=== PATIENT | female | born 1935 | race Caucasian/White ===

== ENCOUNTER 2017-08-14 00:26 | Inpatient (IN) | payer MEDICARE, SELFPAY ==
[2017-08-14] VITALS (14 sets, daily range): BP systolic 123–150; BP diastolic 45–93; PULSE 74–90; RESP 16–22; TEMP 36.3–36.8; O2SAT 93–98; BMI 25.9; BMI 24.9
--- NOTE | 2017-08-14 00:51 | RAD_ITS ---
STUDY: X-RAY CHEST REASON FOR EXAM: Female, 82 years old. Cough TECHNIQUE: A single frontal view of the chest was obtained. COMPARISON: August 10, 2017 FINDINGS: The lungs are adequately aerated. There are patchy opacities in the right lung base. There is no demonstrated pleural abnormality. The cardiac silhouette is normal in size. Calcified lymph nodes are again seen in the hilar regions. Normal visualized pulmonary arteries. There is atherosclerotic calcification of the aortic arch. There are diffuse degenerative changes of the visualized thoracic spine. 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 There is no demonstrated abnormality of the visualized upper abdomen. RAD/Chest 1 View (Portable) IMPRESSION: Right basilar opacities may represent developing consolidation. There is no obvious effusion. Electronically Signed: Dilma Fleming MD at 1:54 EST Tel Direct: [phone], Service support ,
--- NOTE | 2017-08-14 00:54 | ED.VISSUMM ---
- ER Visit Summary Date of Service: 08/14/17 Chief Complaint:, Shortness of breath History of Present Illness: The patient is a 82 F presenting with cough, shortness of breath ?1 week. Patient was seen in the ED and put on steroids and Zithromax for a COPD exacerbation. She states she has not improved. She states she has rhinorrhea and congestion. She saw her primary care physician today. She called EMS tonight when she was more short of breath. She denies chest pain. She denies changes with exertion. She is not on home O2. She is no longer a smoker. She feels like she needs a breathing treatment. Physical Examination: Vitals are stable. Patient is afebrile. Alert no acute distress. HEENT exam is unremarkable. Neck is supple. Lungs are diminished bilaterally. Heart is regular rate and rhythm. Abdomen is soft nontender nondistended. Extremities are unremarkable. Skin is warm and dry. No focal neurologic deficit. Remainder of exam is unremarkable. Emergency Department Course and Treatment: She is given albuterol Atrovent aerosol. CBC is normal except for hemogram 10.0. D-dimer is elevated 2.31. EKG is sinus rate of 71, no change from previous. Chest x-ray shows a right sided opacity which may represent developing consolidation. Chemistries show creatinine 1.42 which is near baseline. She is given IV fluids. Troponin is negative. BNP is normal. Due to elevated d-dimer, CTA chest was obtained and shows no evidence of PE. Right sided consolidation unable to exclude underlying neoplasm. Patient is given Levaquin IV. Due to her failed outpatient treatment will discuss with the hospitalist for admission. Disposition: Admission Impression: Pneumonia, COPD exacerbation, failed outpatient treatment This note was generated with [employer] dictation software. It may contain incorrect words, spelling, and punctuation that were not noted in review of the chart prior to signing ED Disposition - Plan for ED Patient: Chief Complaint: Cough Referrals: Jethro Goel DO [Primary Care Provider] -
[2017-08-14] MEDS: Ipratropium/Albuterol Sulfate 3 ML AMPUL.NEB INHALATION (01:05)
[2017-08-14 01:34] LABS: Absolute Lymphocyte Count 1.59 X10^3/ul (0.83-4.51); Absolute Neutrophil Count 6.9 X10^3/uL (2.0-7.7); Basophil# 0.02 X10^3/uL; Basophil% 0.2 % (0-1); Eosinophil# 0.14 X10^3/uL; Eosinophils% 1.4 % (0-5); Hematocrit 31.2 % (37-47); Lymphocyte # 1.59 X10^3/ul (4.0); Lymphocyte % 16.1 % (19-41); Mean Corp Hgb Conc 32.1 g/gl (32-36); Mean Corpuscular Hgb 27.9 pg (27.0-32.0); Mean Corpuscular Volume 87.2 fL (81-99); Mean Platelet Vol. 10.2 fl (6.2-12.0); Monocyte# 1.19 X10^3/uL; Neutrophil # 6.92 X10^3/uL (2.7-7.7); Neutrophil % 69.9 % (47-70); Platelet Count 286 K/mm3 (150-450); RBC Distribution Width CV 17.3 % (11.6-14.6); RBC Distribution Width SD 53.7 fl (35.1-43.9); Red Blood Count 3.58 M/mm3 (4.2-5.4); White Blood Count 9.9 K/mm3 (4.4-11.0)
[2017-08-14 01:36] LABS: POSITIVE COUNT NO; POSITIVE DIFFERENTIAL NO; POSITIVE MORPHOLOGY NO
[2017-08-14 01:39] LABS: D-Dimer Quantitative (DVT/PE) 2.31 FEU/ug/m (0.27-0.49)
--- NOTE | 2017-08-14 01:39 | ED.RN ---
LAB REPORTED DDIMER 2.34, PHYSICIAN NOTIFIED
[2017-08-14 01:42] LABS: Anion Gap 8 (5-15); BUN 19 mg/dL (7-18); BUN/Creat Ratio 13.4 RATIO (10-20); Calcium,Total 8.4 mg/dL (8.5-10.1); Chloride 104 mmol/L (98-107); Creatinine, Serum 1.42 mg/dL (0.55-1.02); EST Glomerular Filtration Rate 38 mL/min (>60); Est Glom Filt Rate - Afr Amer 46 mL/min (>60); Glucose 105 mg/dL (70-110); Potassium 3.9 mmol/L (3.5-5.1); Sodium Level 139 mmol/L (136-145)
--- NOTE | 2017-08-14 01:49 | CT_ITS ---
STUDY: CTA CHEST REASON FOR EXAM: Female, 82 years old. Elevated d-dimer, shortness of breath, cough, on antibiotic. No improvement. History of COPD, emphysema, TIA, CAD, hypertension. RADIATION DOSAGE (If Supplied By Facility): CTDIvol = ( 12.31 ) mGy, DLP = ( 429.82 ) mGycm TECHNIQUE: The examination was performed with the intravenous administration of 75 ml of Isovue 300 contrast material. Post-processing of the angiographic images was performed, with multiplanar reformation and 3D reconstruction. Individualized dose optimization techniques were used for this CT. COMPARISON: Prior comparison studies are not available for review at this time but were requested. If and when they become available, an addendum report will be generated. FINDINGS: Nodular low-attenuation thyroid. Normal enhancement of the main pulmonary artery and right and left pulmonary arteries. Normal enhancement of the bilateral peripheral pulmonary arteries. There is no demonstrated pulmonary embolism. There is atherosclerotic tortuosity of the aortic arch and descending thoracic aorta. There is no demonstrated aortic dissection. There are calcifications of the coronary arteries. There is borderline cardiac cardiomegaly. Normal mediastinum. Normal hilar regions. Normal visualized trachea and bronchi. The lungs are hyper expanded, with flattening of the hemidiaphragms. There is mild diffuse emphysema. A pleural-based 0.9 cm nodule in the left lower lobe image 62 series 2 noncalcified nodule in the left upper lobe 0.7 x 0.6 cm image 96 series 2 calcified nodule in the left upper lobe vague nodular density left upper lobe 0.3 x 0.5 cm image 175 series 2 and a 0.4 cm indistinct nodule left apex image 12 and 13 series 2. Right lower lobe contains pleural-based nodular airspace disease with associated bronchial wall thickening, bronchial opacification. There is compression of the basilar/dependent parenchyma right greater than left. Normal pleura. Normal chest wall structures. There are degenerative changes of spine, bilateral shoulder joints, osteopenia. There is a moderate to large sized hiatal hernia, atherosclerosis of the upper abdominal aorta, subcentimeter hyperattenuation right renal cortex, small bilateral kidneys, low-attenuation with lobular contour involving the posterior right hepatic lobe measuring approximately 4.2 x 3.2 cm. This is not consistent with water density. There is a small left hepatic low-attenuation measuring near water density measuring 0.[address]/CTA Chest W/WO Contrast IMPRESSION: 1. No demonstrated pulmonary embolism, aneurysm, leak or arterial dissection. 2. Pleural-based nodular airspace disease somewhat masslike right lower lobe with adjacent bronchial wall thickening and luminal narrowing. This may be due to inflammatory/infectious process, follow-up examination to resolution recommended to exclude underlying neoplasm. 3. Multiple parenchymal nodules as above, comparison with previous examination for stability assessment recommended. 4. Emphysema. 5. Atherosclerosis. 6. Coronary artery disease. 7. Moderate to large hiatal hernia. 8. Low-attenuation right hepatic lobe not consistent with a cyst. Correlation to previous assessment and workup recommended. 9. Low-attenuation left hepatic lobe probably a cyst. 10. Right renal cortical hyperattenuation is indeterminate. This can be seen with a hemorrhagic cyst. Again correlation with previous examination of stability assessment recommended. 11. Suspected thyroid nodules. This can be further assessed if needed with ultrasound. CT Follow-Up of Small Pulmonary Nodules Nodule size is average of length and width. Nodule size. Low risk patient. Non smoking history. <4mm No follow-up needed (risk of malignancy <1%) 4-6mm Follow up CT at 12 months, if unchanged, no further imaging needed. 6-8mm Initial follow up at 6-12 month, then at 18-24 months if no changes. > 8mm Follow-up CT at 3, 9, and 24 months, dynamic contrast CT, PET and /or biopsy. Nodule size. High risk patients. Smoking history. <4mm Follow-up 12 months: if unchanged, no further follow-up. 4-6mm Initial follow-up at 6-12 months,then at 18-24 months if no change. 6-8mm Initial follow-up at 3-6months, then at 9-12 and 24 months if no change. >8mm Same as for low risk patient. [employer] STATEMENT Electronically Signed: Shobha Pepe MD at 3:29 EST , Service support ,
[2017-08-14 02:06] LABS: BNP,B-Type NATRIURETIC PEPTIDE 60.2 pg/mL (0-100)
[2017-08-14] MEDS: Acetaminophen 500 MG Tablet 1000 MG PO (02:22)
[2017-08-14] MEDS: 0.9% Normal Saline 1,000 ML 999 ML IV (02:23)
--- NOTE | 2017-08-14 05:01 | PCM.HP.STD ---
Problem List (1) HLD (hyperlipidemia) Status: Chronic (2) HTN (hypertension) Status: Chronic (3) Chronic renal failure, stage 3 (moderate) Status: Chronic (4) Pneumonia Status: Acute History of Present Illness Date of Admission: 08/14/17 Chief Complaint: Shortness of breath and cough The patient is an 82 year old F with past medical history of stage III chronic kidney disease, dyslipidemia and essential hypertension who presented to the emergency room due to progressive shortness of breath and cough. She was seen in the emergency room about a week ago and treated with steroids and Zithromax for possible bronchitis/COPD exacerbation,she became more short of breath at home and called the EMS and she was taken to the emergency room for evaluation. Her d-dimer was elevated and a CTA of the chest was obtained and showed a pleural-based nodular airspace disease somewhat masslike , in the right lower lobe with adjacent bronchial wall thickening and luminal narrowing. There are also multiple parenchymal nodules noted. The patient was diagnosed with pneumonia and placed on IV Levaquin and we are placing her in the hospital for further management. Past Medical History Past Medical History (Chronic Problems): Chronic Problems HLD (hyperlipidemia) (Chronic) HTN (hypertension) (Chronic) Urinary, incontinence, stress female (Chronic) Chronic renal failure, stage 3 (moderate) (Chronic) Allergies No Known Allergies Allergy (Verified 08/14/17 00:29) Home Medications: Ambulatory Orders Medication Instructions Recorded Pravastatin [Pravachol] 20 mg PO QHS 07/03/13 Albuterol Inhaler [Ventolin Hfa] 1 - 2 puff INHALATION Q4H PRN PRN 04/26/17 #1 inhaler Albuterol Inhaler [Ventolin Hfa] 1 puff INHALATION Q4H PRN PRN #1 08/04/17 inhaler Surgical History: noncontributory, - - Surgery for stress incontinence including a sling procedure Smoking Status: Current some day smoker - *Family History Maternal History Items: No pertinent history Review of Systems Comment: All Systems were reviewed with pertinent positives mentioned in the HPI above. VTE Information - Inpt Only VTE Present on Admission: Yes VTE Mechan Device Prophylaxis: SCD's VTE Pharm Prophylaxis ordered?: Yes Patient Problems: Active and Suspected Problems Pneumonia (Acute) - Physical Exam General: Alert, Oriented x3 Neck: Supple, No JVD Cardiovascular: Regular rate, Normal S1, Normal S2 Abdomen: Bowel Sounds Present, Soft Vital Signs Temp Pulse Resp BP Pulse Ox 98.2 F 78 22 H 136/80 H 94 08/14/17 04:46 08/14/17 04:46 08/14/17 04:46 08/14/17 04:46 08/14/17 04:46 Oxygen Delivery Method Room Air Weight: 75.3 kg Body Mass Index (BMI) 25.9 Laboratory Tests Past 24 Hrs 08/14/17 08/14/17 08/14/17 01:10 01:10 01:10 WBC 9.9 RBC 3.58 L Hgb 10.0 L Hct 31.2 L MCV 87.2 MCH 27.9 MCHC 32.1 RDW 17.3 H RDW Differential 53.7 H Plt Count 286 MPV 10.2 Immature Gran % (Auto) 0.400 Neut % (Auto) 69.9 Lymph % (Auto) 16.1 L [place] % (Auto) 12.0 H Eos % (Auto) 1.4 Baso % (Auto) 0.2 Absolute Neuts (auto) 6.9 Absolute Lymphs (auto) 1.59 Total Counted Not Reportable D-Dimer Quant (PE/DVT) 2.31 H* Sodium 139 Potassium 3.9 Chloride 104 Carbon Dioxide 27.0 Anion Gap 8 BUN 19 H Creatinine 1.42 H Estim Creat Clear Calc 29.70 Est GFR (MDRD) Af Amer 46 L Est GFR (MDRD) Non-Af 38 L BUN/Creatinine Ratio 13.4 Glucose 105 Calcium 8.4 L Troponin I 0.04 B-Natriuretic Peptide 08/14/17 01:10 WBC RBC Hgb Hct MCV MCH MCHC RDW RDW Differential Plt Count MPV Immature Gran % (Auto) Neut % (Auto) Lymph % (Auto) [place] % (Auto) Eos % (Auto) Baso % (Auto) Absolute Neuts (auto) Absolute Lymphs (auto) Total Counted D-Dimer Quant (PE/DVT) Sodium Potassium Chloride Carbon Dioxide Anion Gap BUN Creatinine Estim Creat Clear Calc Est GFR (MDRD) Af Amer Est GFR (MDRD) Non-Af BUN/Creatinine Ratio Glucose Calcium Troponin I B-Natriuretic Peptide 60.2 Assessment/Plan Active and Suspected Problems Pneumonia (Acute) 1. Community-acquired pneumonia, presumptive, we will continue on IV Levaquin. 2. Mass like pleural-based nodular airspace disease/lung nodules; since she is a reformed smoker, diagnosis of malignancy should be entertained and I will consult pulmonary 3. Acute COPD exacerbation; will continue her bronchodilators, IV steroids and antibiotics. 4. stage III chronic kidney disease; her creatinine is at baseline, will monitor renal parameters closely and avoid potentially nephrotoxic medications. 5. Dyslipidemia; will continue her statin 6. DVT prophylaxis with subcutaneous heparin. Code Visit Inpatient E&M: 44304 Init Hosp L2
[2017-08-14] MEDS: 0.9% Normal Saline 1,000 ML 75 ML IV ×2 (06:05→13:36)
[2017-08-14] MEDS: guaiFENesin 1,200 MG Tablet 1200 MG PO ×2 (06:06→21:48)
[2017-08-14 08:03] LABS: Anion Gap 11 (5-15); BUN 15 mg/dL (7-18); BUN/Creat Ratio 10.8 RATIO (10-20); Calcium,Total 8.2 mg/dL (8.5-10.1); Chloride 106 mmol/L (98-107); Creatinine, Serum 1.39 mg/dL (0.55-1.02); EST Glomerular Filtration Rate 39 mL/min (>60); Est Glom Filt Rate - Afr Amer 47 mL/min (>60); Estimated Creatinine Clearance 30.34 ml/min; Glucose 107 mg/dL (70-110); Potassium 3.9 mmol/L (3.5-5.1); Sodium Level 140 mmol/L (136-145)
[2017-08-14] MEDS: Albuterol 2.5 MG/3 ML VIAL.NEB. INHALATION ×2 (10:58→18:39)
[2017-08-14] MEDS: Pantoprazole Sodium 20 MG Tablet PO (11:21)
--- NOTE | 2017-08-14 13:44 | PCM.CONS.GEN ---
Problem List (1) Bronchiectasis Status: Acute (2) Chronic renal failure, stage 3 (moderate) Status: Chronic (3) HLD (hyperlipidemia) Status: Chronic (4) HTN (hypertension) Status: Chronic (5) Tobacco abuse Status: Chronic (6) GERD (gastroesophageal reflux disease) Status: Chronic (7) Anxiety Status: Chronic Reason for Consult Date of Consultation: 08/14/17 Reason for Consultation: ?mass-like airspace disease History of Present Illness: The patient is a 82 year old F with a past medical history as above who presented to the ER with complaints of progressive shortness of breath and cough after failed outpatient antibiotic therapy. Patient presented to the ER a week ago and was given a Z-dodie for presumed COPD exacerbation. She was not placed on any steroids. Patient has been to the ER 4 times this month and multiple other times the last few years. Today, she called EMS secondary to unable to catch her breath. She denies any increase in sputum production, hemoptysis, nausea, vomiting, or diarrhea. She denies any fever or chills. There is been no significant weight loss. She does complain of constant GERD related symptoms. She is unable to eat anything spicy and notices more severe heartburn with caffeine intake. She denies any history of a hernia. Patient reports she typically has good exercise tolerance, she walks from her apartment up a large hill to shop at [employer] and does not get excessively short of breath. In the ER, she was given a 1 L normal saline bolus, IV Levaquin, DuoNeb aerosol, and Tylenol 1000 mg ?1. Initial vital signs BP 150/86, pulse 80, RR 22, afebrile at 98.2?F, and 98% on room air. Lab work obtained and was remarkable for hemoglobin of 10.0 which is the patient's baseline, chemistry remarkable for creatinine of 1.39 (also baseline), normal troponin and BNP. D-dimer was elevated at 2.31, so CTA of the chest obtained which demonstrated multiple findings as follows: No PE, dissection, or aneurysm. Pleural-based nodular airspace disease with questionable masslike right lower lobe with adjacent bronchial wall thickening and luminal narrowing. There were multiple parenchymal nodules, see report for full description. Also indicated emphysema, atherosclerosis, CAD, a moderate to large hiatal hernia, a low-attenuation left hepatic lobe probable cyst, a right renal cortical hyperattenuation which is indeterminate, and suspected thyroid nodules. Blood cultures and respiratory panel were obtained, and a flu swab was negative. Patient was admitted to the medical surgical floor for further management of presumed pneumonia. The patient lives alone but has 2 daughters nearby, one who work here at the hospital in admissions. She is on minimal medications at home, only taking as needed Ventolin and Pravachol. Her last colonoscopy was approximately 4-5 years ago and was reportedly normal. She has not had a mammogram in a long time, there have been no previous abnormalities. Her mother did have a history of breast cancer. Her father had a history of prostate cancer. Otherwise, both her parents were fairly healthy. She states she was diagnosed with COPD at her primary care physician's office. Patient does have an extensive smoking history, with a [id number] history. She quit smoking 1 week ago. She denies ever seen a guide escort or having pulmonary function tests of any sort. She denies any history of cancer. She has never been on any inhalers other than the Ventolin. Patient denies any history of sleep apnea, she does not believe she snores. There is no excessive daytime sleepiness. She typically feels very rested upon awakening. Past Medical History Past Medical History (Chronic Problems): Chronic Problems HLD (hyperlipidemia) (Chronic) HTN (hypertension) (Chronic) Urinary, incontinence, stress female (Chronic) Chronic renal failure, stage 3 (moderate) (Chronic) Tobacco abuse (Chronic) GERD (gastroesophageal reflux disease) (Chronic) Anxiety (Chronic) Allergies lisinopril Allergy (Verified 08/14/17 05:45) Angioedema Home Medications: Ambulatory Orders Medication Instructions Recorded Pravastatin [Pravachol] 20 mg PO QHS 07/03/13 Albuterol Inhaler [Ventolin Hfa] 1 - 2 puff INHALATION Q4H PRN PRN 04/26/17 #1 inhaler Surgical History: noncontributory, - - Surgery for stress incontinence including a sling procedure Psychiatric History: Anxiety 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 Denies: Anorexia, Chills, Fever, Night Sweats, Malaise, Weakness, Weight Change Eyes: Denies: Vision Change HEENT: Reports: Nasal Congestion, Sinus Congestion. Denies: Difficulty Swallowing, Dysphasia, Head Aches, Hearing Changes, Nasal bleeding, Post Nasal Drip, Sore Throat Cardiovascular: Denies: Chest Pain, Chest Tightness, Edema, Light Headedness, Orthopnea, Palpitations, Paroxysmal Noc. Dyspnea, Syncope Respiratory: Reports: Cough - occasional, Shortness of breath upon exertion - occasionally, Sputum production - occasional, Wheezing - intermittently. Denies: Hemoptysis, Pleuritic Pain, Shortness of breath at rest Gastrointestinal: Reports: Dyspepsia. Denies: Abdominal Pain, Constipation, Diarrhea, Hematemesis, Hematochezia, Nausea, Melena, Vomiting Genitourinary: Reports: Incontinence. Denies: Dysuria, Frequency, Hematuria, Retention Gynecological: Denies: Breast symptoms, Vaginal bleeding Musculoskeletal: Reports: Joint stiffness. Denies: Back Pain Skin: Denies: Dryness, Rash, Wounds Neurological: Denies: Balance problems, Change in Speech, Confusion, Difficulty swallowing, Focal weakness, Numbness, Tingling, Tremor, Seizures Psychiatric: Reports: Anxiety. Denies: Depression, Suicidal Ideations Endocrine: Denies: Change in Body Habitus, Polydipsia, Polyuria Hematologic/ Lymphatic: Reports: Anemia, Easy Bruising, Hx of blood transfusion - s/p GIB. Denies: Adenopathy, Easy Bleeding, Hx of blood clot Patient Problems: Active and Suspected Problems Pneumonia (Acute) Bronchiectasis (Acute) Subjective: The patient was seen and examined. She is lying comfortably in bed watching TV, no acute complaints. States she does not feel short of breath at this time. She has had little to no cough with occasional sputum production. When she is able to expectorate her sputum, it is typically green. She does get intermittently short of breath with exertion and has chronic sinus congestion. She is currently saturating in the upper 90s on 2 L of oxygen. Objective: Clinical Impression(s) from Imaging Studies Chest X-Ray 08/14/17 00:51 IMPRESSION: Right basilar opacities may represent developing consolidation. There is no obvious effusion. Electronically Signed: Dilma Fleming MD at 1:54 EST Tel Direct: [phone], Service support , Chest CTA 08/14/17 01:49 IMPRESSION: 1. No demonstrated pulmonary embolism, aneurysm, leak or arterial dissection. 2. Pleural-based nodular airspace disease somewhat masslike right lower lobe with adjacent bronchial wall thickening and luminal narrowing. This may be due to inflammatory/infectious process, follow-up examination to resolution recommended to exclude underlying neoplasm. 3. Multiple parenchymal nodules as above, comparison with previous examination for stability assessment recommended. 4. Emphysema. 5. Atherosclerosis. 6. Coronary artery disease. 7. Moderate to large hiatal hernia. 8. Low-attenuation right hepatic lobe not consistent with a cyst. Correlation to previous assessment and workup recommended. 9. Low-attenuation left hepatic lobe probably a cyst. 10. Right renal cortical hyperattenuation is indeterminate. This can be seen with a hemorrhagic cyst. Again correlation with previous examination of stability assessment recommended. 11. Suspected thyroid nodules. This can be further assessed if needed with ultrasound. CT Follow-Up of Small Pulmonary Nodules Nodule size is average of length and width. Nodule size. Low risk patient. Non smoking history. <4mm No follow-up needed (risk of malignancy <1%) 4-6mm Follow up CT at 12 months, if unchanged, no further imaging needed. 6-8mm Initial follow up at 6-12 month, then at 18-24 months if no changes. > 8mm Follow-up CT at 3, 9, and 24 months, dynamic contrast CT, PET and /or biopsy. Nodule size. High risk patients. Smoking history. <4mm Follow-up 12 months: if unchanged, no further follow-up. 4-6mm Initial follow-up at 6-12 months,then at 18-24 months if no change. 6-8mm Initial follow-up at 3-6months, then at 9-12 and 24 months if no change. >8mm Same as for low risk patient. [employer] G[employer] STATEMENT Electronically Signed: Shobha Pepe MD at 3:29 EST , Service support , - Physical Exam General: Alert, Oriented x3, Cooperative, No apparent distress HEENT: Atraumatic, PERRLA, Normocephalic Oral: Moist Mucosa, No Gingival or Mucosal Lesions/ Ulcerations Neck: Supple, No JVD, No Nodes, Trachea Midline, - - mild thyromegaly Lungs: - - Diminished throughout, no appreciable rhonchi, wheezes, or rales. Symmetrical expansion, normal expiratory phase. No dullness to percussion Cardiovascular: Regular rate, Regular Rhythm, Normal S1, Normal S2, Murmur - HOA, No rub noted, No Gallop Abdomen: Bowel Sounds Present, Soft, Non Tender, Non-Distended, Obese, Hernia Extremities: No clubbing, No cyanosis, No edema, Capillary Refill Less than 3 Seconds, No Calf Tenderness, Peripheral Pulses Normal Skin: No rashes, No breakdown Musculoskeletal: No Tenderness to Palpation of Joints or Extremities Lymphatic: - - No significant adenopathy Neurological: Cranial nerves II-XII grossly intact, Neuro grossly intact, Motor Exam 5/5 strength throughout Psych/Mental Status: Alert and oriented to time, place, person, mood and affect Vital Signs Temp Pulse Resp BP Pulse Ox 97.6 F L 90 20 H 135/71 H 95 08/14/17 08:42 08/14/17 10:58 08/14/17 12:38 08/14/17 08:42 08/14/17 09:09 Oxygen Flow Rate 2 Oxygen Delivery Method Nasal Cannula Weight: 72.121 kg Body Mass Index (BMI) 24.9 Intake and Output for Last 24 Hours 08/12/17 08/13/17 08/14/17 23:59 23:59 23:59 Intake Total 1598 / 1598 Output Total 0 / 0 Balance 1598 / 1598 Microbiology Past 72 Hours 08/14/17 07:45 Influenza Types A,B Direct FA (SHY) - Final Mucosa - Nasopharyngeal Laboratory Tests Past 24 Hrs 08/14/17 06:56 Sodium 140 Potassium 3.9 Chloride 106 Carbon Dioxide 23.0 Anion Gap 11 BUN 15 Creatinine 1.39 H Estim Creat Clear Calc 30.34 Est GFR (MDRD) Af Amer 47 L Est GFR (MDRD) Non-Af 39 L BUN/Creatinine Ratio 10.8 Glucose 107 Calcium 8.2 L Assessment/Plan Active and Suspected Problems Pneumonia (Acute) Bronchiectasis (Acute) RECOMMENDATIONS 1. Wean supplemental oxygen to keep saturations 88-92% 2. Encourage Acapella 3. Continue aerosols 4. Continue antibiotics, DC if cultures negative 5. Likely okay to stop steroids 6. Start PPI, should be given prescription when discharged 7. Patient should follow-up with PCP regarding her large hiatal hernia, possible surgical evaluation if she desires 8. Ambulatory pulse ox prior to discharge 9. Follow-up in the pulmonary clinic in 2 weeks with [facility] COUNSELOR IMPRESSIONS 1. Basal bronchiectasis secondary to probable chronic aspiration secondary to hiatal hernia CTA of the chest showed pleural-based nodular airspace disease with questionable mass RLL with adjacent bronchial wall thickening and luminal narrowing. Patient has uncontrolled, essentially continuous GERD and is likely chronically aspirating secondary to her hiatal hernia. Recommend initiating PPI and for patient to continue on discharge. She may be a surgical candidate but given her age and comorbidities, would need evaluated for this as an outpatient. The patient remains afebrile with no leukocytosis. She has no increase in her sputum production. Her lungs are essentially clear but very diminished. Encourage Acapella use given her bronchiectasis. Continue aerosols and antibiotics, may discontinue if cultures are negative. She does not have any wheezing and minimal shortness of breath, likely okay to discontinue her steroids as well. 2. Lung nodules Again, patient has [id number] history of smoking, quit 1 week ago. With her extensive smoking history, cannot rule out malignancy. Would recommend repeat imaging in 3 months. This can be arranged in the outpatient pulmonary clinic. 3. Suspected COPD Do not suspect an exacerbation at this time. Patient has never followed with a guide escort or had pulmonary function testing that she is aware of. She was diagnosed by her primary care physician. Patient reports that she gets intermittently short of breath, however her activity tolerance is typically fairly good. She has a chronic cough with only occasional sputum production that is typically green. Then, she has an extensive smoking history. She can follow-up in the outpatient clinic 2 weeks after discharge, at which time to PFTs can be arranged. She can also have a walking oximetry done at this time. 4. Tobacco abuse/chronic renal failure/hypertension/hyperlipidemia/anxiety Complicates care, management, recovery, and prognosis. Management per hospitalist team. Thank you for the opportunity to participate in this patient's care, please do not hesitate to contact us with any further questions or concerns. This note was generated with [employer] software. It may contain incorrect words, spelling, and punctuation that were not noted in checking the note before signing.
--- NOTE | 2017-08-14 14:11 | CON.PCM_ITS ---
Problem List (1) Bronchiectasis Status: Acute (2) Chronic renal failure, stage 3 (moderate) Status: Chronic (3) HLD (hyperlipidemia) Status: Chronic (4) HTN (hypertension) Status: Chronic (5) Tobacco abuse Status: Chronic (6) GERD (gastroesophageal reflux disease) Status: Chronic (7) Anxiety Status: Chronic Reason for Consult Date of Consultation: 08/14/17 Reason for Consultation: ?mass-like airspace disease History of Present Illness: The patient is a 82 year old F with a past medical history as above who presented to the ER with complaints of progressive shortness of breath and cough after failed outpatient antibiotic therapy. Patient presented to the ER a week ago and was given a Z-dodie for presumed COPD exacerbation. She was not placed on any steroids. Patient has been to the ER 4 times this month and multiple other times the last few years. Today, she called EMS secondary to unable to catch her breath. She denies any increase in sputum production, hemoptysis, nausea, vomiting, or diarrhea. She denies any fever or chills. There is been no significant weight loss. She does complain of constant GERD related symptoms. She is unable to eat anything spicy and notices more severe heartburn with caffeine intake. She denies any history of a hernia. Patient reports she typically has good exercise tolerance, she walks from her apartment up a large hill to shop at [employer] and does not get excessively short of breath. In the ER, she was given a 1 L normal saline bolus, IV Levaquin, DuoNeb aerosol , and Tylenol 1000 mg ?1. Initial vital signs BP 150/86, pulse 80, RR 22, afebrile at 98.2?F, and 98% on room air. Lab work obtained and was remarkable for hemoglobin of 10.0 which is the patient's baseline, chemistry remarkable for creatinine of 1.39 (also baseline), normal troponin and BNP. D-dimer was elevated at 2.31, so CTA of the chest obtained which demonstrated multiple findings as follows: No PE, dissection, or aneurysm. Pleural-based nodular airspace disease with questionable masslike right lower lobe with adjacent bronchial wall thickening and luminal narrowing. There were multiple parenchymal nodules, see report for full description. Also indicated emphysema , atherosclerosis, CAD, a moderate to large hiatal hernia, a low-attenuation left hepatic lobe probable cyst, a right renal cortical hyperattenuation which is indeterminate, and suspected thyroid nodules. Blood cultures and respiratory panel were obtained, and a flu swab was negative. Patient was admitted to the medical surgical floor for further management of presumed pneumonia. The patient lives alone but has 2 daughters nearby, one who work here at the hospital in admissions. She is on minimal medications at home, only taking as needed Ventolin and Pravachol. Her last colonoscopy was approximately 4-5 years ago and was reportedly normal. She has not had a mammogram in a long time , there have been no previous abnormalities. Her mother did have a history of breast cancer. Her father had a history of prostate cancer. Otherwise, both her parents were fairly healthy. She states she was diagnosed with COPD at her primary care physician's office. Patient does have an extensive smoking history , with a [id number] history. She quit smoking 1 week ago. She denies ever seen a seed mill superintendent or having pulmonary function tests of any sort. She denies any history of cancer. She has never been on any inhalers other than the Ventolin. Patient denies any history of sleep apnea, she does not believe she snores. There is no excessive daytime sleepiness. She typically feels very rested upon awakening. Past Medical History Past Medical History (Chronic Problems): Chronic Problems HLD (hyperlipidemia) (Chronic) HTN (hypertension) (Chronic) Urinary, incontinence, stress female (Chronic) Chronic renal failure, stage 3 (moderate) (Chronic) Tobacco abuse (Chronic) GERD (gastroesophageal reflux disease) (Chronic) Anxiety (Chronic) Allergies lisinopril Allergy (Verified 08/14/17 05:45) Angioedema Home Medications: Ambulatory Orders Medication Instructions Recorded Pravastatin [Pravachol] 20 mg PO QHS 07/03/13 Albuterol Inhaler [Ventolin Hfa] 1 - 2 puff INHALATION Q4H PRN PRN 04/26/17 #1 inhaler Surgical History: noncontributory, - - Surgery for stress incontinence including a sling procedure Psychiatric History: Anxiety TRANSMISSION SUPERINTENDENT History: No pertinent TRANSMISSION SUPERINTENDENT history Lives: Alone - 60 pk yr h/o, quit 1 week ago Smoking Status: Former smoker Tobacco Use: Cigarettes Alcohol: None Drugs: None - *Family History Maternal History Items: - - breast CA Paternal History Items: - - prostate CA Review of Systems Constitutional: Reports: Fatigue. Denies: Anorexia, Chills, Fever, Night Sweats , Malaise, Weakness, Weight Change Eyes: Denies: Vision Change HEENT: Reports: Nasal Congestion, Sinus Congestion. Denies: Difficulty Swallowing, Dysphasia, Head Aches, Hearing Changes, Nasal bleeding, Post Nasal Drip, Sore Throat Cardiovascular: Denies: Chest Pain, Chest Tightness, Edema, Light Headedness, Orthopnea, Palpitations, Paroxysmal Noc. Dyspnea, Syncope Respiratory: Reports: Cough - occasional, Shortness of breath upon exertion - occasionally, Sputum production - occasional, Wheezing - intermittently. Denies : Hemoptysis, Pleuritic Pain, Shortness of breath at rest Gastrointestinal: Reports: Dyspepsia. Denies: Abdominal Pain, Constipation, Diarrhea, Hematemesis, Hematochezia, Nausea, Melena, Vomiting Genitourinary: Reports: Incontinence. Denies: Dysuria, Frequency, Hematuria, Retention Gynecological: Denies: Breast symptoms, Vaginal bleeding Musculoskeletal: Reports: Joint stiffness. Denies: Back Pain Skin: Denies: Dryness, Rash, Wounds Neurological: Denies: Balance problems, Change in Speech, Confusion, Difficulty swallowing, Focal weakness, Numbness, Tingling, Tremor, Seizures Psychiatric: Reports: Anxiety. Denies: Depression, Suicidal Ideations Endocrine: Denies: Change in Body Habitus, Polydipsia, Polyuria Hematologic/ Lymphatic: Reports: Anemia, Easy Bruising, Hx of blood transfusion - s/p GIB. Denies: Adenopathy, Easy Bleeding, Hx of blood clot Patient Problems: Active and Suspected Problems Pneumonia (Acute) Bronchiectasis (Acute) Subjective: The patient was seen and examined. She is lying comfortably in bed watching TV , no acute complaints. States she does not feel short of breath at this time. She has had little to no cough with occasional sputum production. When she is able to expectorate her sputum, it is typically green. She does get intermittently short of breath with exertion and has chronic sinus congestion. She is currently saturating in the upper 90s on 2 L of oxygen. Objective: Clinical Impression(s) from Imaging Studies Chest X-Ray 08/14/17 00:51 IMPRESSION: Right basilar opacities may represent developing consolidation. There is no obvious effusion. Electronically Signed: Dilma Fleming MD at 1:54 EST Tel Direct: [phone], Service support , Chest CTA 08/14/17 01:49 IMPRESSION: 1. No demonstrated pulmonary embolism, aneurysm, leak or arterial dissection. 2. Pleural-based nodular airspace disease somewhat masslike right lower lobe with adjacent bronchial wall thickening and luminal narrowing. This may be due to inflammatory/infectious process, follow-up examination to resolution recommended to exclude underlying neoplasm. 3. Multiple parenchymal nodules as above, comparison with previous examination for stability assessment recommended. 4. Emphysema. 5. Atherosclerosis. 6. Coronary artery disease. 7. Moderate to large hiatal hernia. 8. Low-attenuation right hepatic lobe not consistent with a cyst. Correlation to previous assessment and workup recommended. 9. Low-attenuation left hepatic lobe probably a cyst. 10. Right renal cortical hyperattenuation is indeterminate. This can be seen with a hemorrhagic cyst. Again correlation with previous examination of stability assessment recommended. 11. Suspected thyroid nodules. This can be further assessed if needed with ultrasound. CT Follow-Up of Small Pulmonary Nodules Nodule size is average of length and width. Nodule size. Low risk patient. Non smoking history. <4mm No follow-up needed (risk of malignancy <1%) 4-6mm Follow up CT at 12 months, if unchanged, no further imaging needed. 6-8mm Initial follow up at 6-12 month, then at 18-24 months if no changes. > 8mm Follow-up CT at 3, 9, and 24 months, dynamic contrast CT, PET and /or biopsy. Nodule size. High risk patients. Smoking history. <4mm Follow-up 12 months: if unchanged, no further follow-up. 4-6mm Initial follow-up at 6-12 months,then at 18-24 months if no change. 6-8mm Initial follow-up at 3-6months, then at 9-12 and 24 months if no change. >8mm Same as for low risk patient. [employer] G[employer] STATEMENT Electronically Signed: Shobha Pepe MD at 3:29 EST , Service support , - Physical Exam General: Alert, Oriented x3, Cooperative, No apparent distress HEENT: Atraumatic, PERRLA, Normocephalic Oral: Moist Mucosa, No Gingival or Mucosal Lesions/ Ulcerations Neck: Supple, No JVD, No Nodes, Trachea Midline, - - mild thyromegaly Lungs: - - Diminished throughout, no appreciable rhonchi, wheezes, or rales. Symmetrical expansion, normal expiratory phase. No dullness to percussion Cardiovascular: Regular rate, Regular Rhythm, Normal S1, Normal S2, Murmur - HOA , No rub noted, No Gallop Abdomen: Bowel Sounds Present, Soft, Non Tender, Non-Distended, Obese, Hernia Extremities: No clubbing, No cyanosis, No edema, Capillary Refill Less than 3 Seconds, No Calf Tenderness, Peripheral Pulses Normal Skin: No rashes, No breakdown Musculoskeletal: No Tenderness to Palpation of Joints or Extremities Lymphatic: - - No significant adenopathy Neurological: Cranial nerves II-XII grossly intact, Neuro grossly intact, Motor Exam 5/5 strength throughout Psych/Mental Status: Alert and oriented to time, place, person, mood and affect Vital Signs Temp Pulse Resp BP Pulse Ox 97.6 F L 90 20 H 135/71 H 95 08/14/17 08:42 08/14/17 10:58 08/14/17 12:38 08/14/17 08:42 08/14/17 09:09 Oxygen Flow Rate 2 Oxygen Delivery Method Nasal Cannula Weight: 72.121 kg Body Mass Index (BMI) 24.9 Intake and Output for Last 24 Hours 08/12/17 08/13/17 08/14/17 23:59 23:59 23:59 Intake Total 1598 / 1598 Output Total 0 / 0 Balance 1598 / 1598 Microbiology Past 72 Hours 08/14/17 07:45 Influenza Types A,B Direct FA (SHY) - Final Mucosa - Nasopharyngeal Laboratory Tests Past 24 Hrs 08/14/17 06:56 Sodium 140 Potassium 3.9 Chloride 106 Carbon Dioxide 23.0 Anion Gap 11 BUN 15 Creatinine 1.39 H Estim Creat Clear Calc 30.34 Est GFR (MDRD) Af Amer 47 L Est GFR (MDRD) Non-Af 39 L BUN/Creatinine Ratio 10.8 Glucose 107 Calcium 8.2 L Assessment/Plan Active and Suspected Problems Pneumonia (Acute) Bronchiectasis (Acute) RECOMMENDATIONS 1. Wean supplemental oxygen to keep saturations 88-92% 2. Encourage Acapella 3. Continue aerosols 4. Continue antibiotics, DC if cultures negative 5. Likely okay to stop steroids 6. Start PPI, should be given prescription when discharged 7. Patient should follow-up with PCP regarding her large hiatal hernia, possible surgical evaluation if she desires 8. Ambulatory pulse ox prior to discharge 9. Follow-up in the pulmonary clinic in 2 weeks with [facility] IM[facility] 1. Basal bronchiectasis secondary to probable chronic aspiration secondary to hiatal hernia CTA of the chest showed pleural-based nodular airspace disease with questionable mass RLL with adjacent bronchial wall thickening and luminal narrowing. Patient has uncontrolled, essentially continuous GERD and is likely chronically aspirating secondary to her hiatal hernia. Recommend initiating PPI and for patient to continue on discharge. She may be a surgical candidate but given her age and comorbidities, would need evaluated for this as an outpatient. The patient remains afebrile with no leukocytosis. She has no increase in her sputum production. Her lungs are essentially clear but very diminished. Encourage Acapella use given her bronchiectasis. Continue aerosols and antibiotics, may discontinue if cultures are negative. She does not have any wheezing and minimal shortness of breath, likely okay to discontinue her steroids as well. 2. Lung nodules Again, patient has [id number] history of smoking, quit 1 week ago. With her extensive smoking history, cannot rule out malignancy. Would recommend repeat imaging in 3 months. This can be arranged in the outpatient pulmonary clinic. 3. Suspected COPD Do not suspect an exacerbation at this time. Patient has never followed with a seed mill superintendent or had pulmonary function testing that she is aware of. She was diagnosed by her primary care physician. Patient reports that she gets intermittently short of breath, however her activity tolerance is typically fairly good. She has a chronic cough with only occasional sputum production that is typically green. Then, she has an extensive smoking history. She can follow-up in the outpatient clinic 2 weeks after discharge, at which time to PFTs can be arranged. She can also have a walking oximetry done at this time. 4. Tobacco abuse/chronic renal failure/hypertension/hyperlipidemia/anxiety Complicates care, management, recovery, and prognosis. Management per hospitalist team. Thank you for the opportunity to participate in this patient's care, please do not hesitate to contact us with any further questions or concerns. This note was generated with [employer]mu[employer] software. It may contain incorrect words, spelling, and punctuation that were not noted in checking the note before signing.
[2017-08-14 14:44] LABS: Absolute Lymphocyte Count 1.32 X10^3/ul (0.83-4.51); Absolute Neutrophil Count 5.2 X10^3/uL (2.0-7.7); Basophil# 0.01 X10^3/uL; Basophil% 0.1 % (0-1); Eosinophils% 1.3 % (0-5); Hematocrit 29.4 % (37-47); Hemoglobin 9.3 g/dl (12.0-15.0); Lymphocyte # 1.32 X10^3/ul (4.0); Lymphocyte % 17.1 % (19-41); Mean Corp Hgb Conc 31.6 g/gl (32-36); Mean Corpuscular Hgb 27.7 pg (27.0-32.0); Mean Corpuscular Volume 87.5 fL (81-99); Monocyte# 1.02 X10^3/uL; Monocyte% 13.2 % (0-10); Neutrophil # 5.24 X10^3/uL (2.7-7.7); Neutrophil % 67.9 % (47-70); POSITIVE COUNT NO; POSITIVE DIFFERENTIAL NO; POSITIVE MORPHOLOGY YES; Platelet Count 299 K/mm3 (150-450); RBC Distribution Width CV 17.1 % (11.6-14.6); RBC Distribution Width SD 53.5 fl (35.1-43.9); Red Blood Count 3.36 M/mm3 (4.2-5.4); White Blood Count 7.7 K/mm3 (4.4-11.0)
[2017-08-14 14:45] LABS: Differential Indicated SCAN CRITERIA MET
--- NOTE | 2017-08-14 15:14 | CASEMGMT ---
See RN CM Assessment. DC Plan: home on discharge. May need Home O2 evaluation. Flaco RIVERO RN CM
--- NOTE | 2017-08-14 15:17 | PCM.PN.HOSP ---
Patient Problems: Active and Suspected Problems Pneumonia (Acute) Subjective: Patient was seen and examined. Complains of feeling better. Still short of breath with exertion and has cough. Denies any fever or chills. Vitals reviewed and was stable. Labs showed improved creatinine to 1.39 from 1.42. Vitals/I&O's: Vital Signs Temp Pulse Resp BP Pulse Ox 97.6 F L 90 20 H 135/71 H 95 08/14/17 08:42 08/14/17 10:58 08/14/17 12:38 08/14/17 08:42 08/14/17 09:09 Oxygen Flow Rate 2 Oxygen Delivery Method Nasal Cannula Weight: 72.121 kg Body Mass Index (BMI) 24.9 Intake and Output for Last 24 Hours 08/12/17 08/13/17 08/14/17 23:59 23:59 23:59 Intake Total 1598 / 1598 Output Total 0 / 0 Balance 1598 / 1598 General: Alert, Oriented x3, Cooperative, - - Mild respiratory distress oxygen, 2 L HEENT: Atraumatic, PERRLA, EOMI, Normocephalic Oral: Moist Mucosa Neck: Supple Lungs: Clear to auscultation, Normal air movement Cardiovascular: Regular rate, Regular Rhythm, Normal S1, Normal S2, No murmurs Abdomen: Bowel Sounds Present, Soft, Non Tender, Non-Distended, No Hepato-splenomegaly Extremities: No edema Skin: No rashes Musculoskeletal: No Tenderness to Palpation of Joints or Extremities Lymphatic: No Cervical, Supraclavicular, or Inguinal Adenopathy Neurological: Cranial nerves II-XII grossly intact, Neuro grossly intact, Motor Exam 5/5 strength throughout Psych/Mental Status: Normal Affect, Appropriate Microbiology Past 72 Hours 08/14/17 11:05 Mucosa - Nose Respiratory Panel (PCR) - Final 08/14/17 07:45 Mucosa - Nasopharyngeal Influenza Types A,B Direct FA (SHY) - Final Laboratory Results 08/14/17 06:56: Sodium 140, Potassium 3.9, Chloride 106, Carbon Dioxide 23.0, Anion Gap 11, BUN 15, Creatinine 1.39 H, Estim Creat Clear Calc 30.34, Est GFR (MDRD) Af Amer 47 L, Est GFR (MDRD) Non-Af 39 L, BUN/Creatinine Ratio 10.8, Glucose 107, Calcium 8.2 L 08/14/17 06:56: WBC 7.7, RBC 3.36 L, Hgb 9.3 L, Hct 29.4 L, MCV 87.5, MCH 27.7, MCHC 31.6 L, RDW 17.1 H, RDW Differential 53.5 H, Plt Count 299, MPV 11.0, Immature Gran % (Auto) 0.400, Neut % (Auto) 67.9, Lymph % (Auto) 17.1 L, [place] % (Auto) 13.2 H, Eos % (Auto) 1.3, Baso % (Auto) 0.1, Absolute Neuts (auto) 5.2, Absolute Lymphs (auto) 1.32, Total Counted Not Reportable Current Medications Albuterol Sulfate (Ventolin Aerosols) 2.5 mg INHALATION Q4H PRN PRN PRN Reason: SHORTNESS OF BREATH Last Admin: 08/14/17 10:58 Dose: 2.5 mg Guaifenesin (Mucinex) 1,200 mg PO BID [facility] Last Admin: 08/14/17 06:06 Dose: 1,200 mg Heparin Sodium (Porcine) (Heparin Na) 5,000 unit SC Q8 [facility] Last Admin: 08/14/17 13:40 Dose: 5,000 u Sodium Chloride () 1,000 mls @ 75 mls/hr IV .[id number] [facility] Last Admin: 08/14/17 13:36 Dose: 75 mls/hr Levofloxacin (Levaquin) 750 mg in 150 mls @ 100 mls/hr IV Q48 [facility] Methylprednisolone (Solu-Medrol) 40 mg IV Q8 [facility] Last Admin: 08/14/17 13:36 Dose: 40 mg Nicotine (Nicoderm Cq (Pbkc)) 21 mg TRANSDERM. DAILY [facility] Nicotine Polacrilex (Rugby Nicotine (Bkc)) 2 mg PO Q2H PRN PRN PRN Reason: SMOKING CESSATION Pantoprazole Sodium (Protonix) 20 mg PO DAILY [facility] Last Admin: 08/14/17 11:21 Dose: 20 mg Pravastatin Sodium (Pravachol) 20 mg PO QHS [facility] Assessment/Plan Active and Suspected Problems Pneumonia (Acute) 1. Community-acquired pneumonia, stable vitals, no fever, blood cultures negative, respiratory panel and influenza negative presumptive, Add urine for Streptococcal and Legionella antigen,continue on IV Levaquin. 2. Acute COPD exacerbation, not on home oxygen, on 2 L of oxygen , continue PT treatment, IV steroids and antibiotics. 3. Mass like pleural-based nodular airspace disease/lung nodules, in a non-smoker, pulmonary team consulted, will await recommendation. 4. stage III chronic kidney disease, stable, slight improvement in her creatinine. 5. Dyslipidemia, on statin. 6. Nicotine use disorder, will start the nicotine patch and gum. 7. DVT prophylaxis with subcutaneous heparin.
--- NOTE | 2017-08-14 15:26 | PN_ITS ---
Patient Problems: Active and Suspected Problems Pneumonia (Acute) Subjective: Patient was seen and examined. Complains of feeling better. Still short of breath with exertion and has cough. Denies any fever or chills. Vitals reviewed and was stable. Labs showed improved creatinine to 1.39 from 1.42. Vitals/I&O's: Vital Signs Temp Pulse Resp BP Pulse Ox 97.6 F L 90 20 H 135/71 H 95 08/14/17 08:42 08/14/17 10:58 08/14/17 12:38 08/14/17 08:42 08/14/17 09:09 Oxygen Flow Rate 2 Oxygen Delivery Method Nasal Cannula Weight: 72.121 kg Body Mass Index (BMI) 24.9 Intake and Output for Last 24 Hours 08/12/17 08/13/17 08/14/17 23:59 23:59 23:59 Intake Total 1598 / 1598 Output Total 0 / 0 Balance 1598 / 1598 General: Alert, Oriented x3, Cooperative, - - Mild respiratory distress oxygen, 2 L HEENT: Atraumatic, PERRLA, EOMI, Normocephalic Oral: Moist Mucosa Neck: Supple Lungs: Clear to auscultation, Normal air movement Cardiovascular: Regular rate, Regular Rhythm, Normal S1, Normal S2, No murmurs Abdomen: Bowel Sounds Present, Soft, Non Tender, Non-Distended, No Hepato- splenomegaly Extremities: No edema Skin: No rashes Musculoskeletal: No Tenderness to Palpation of Joints or Extremities Lymphatic: No Cervical, Supraclavicular, or Inguinal Adenopathy Neurological: Cranial nerves II-XII grossly intact, Neuro grossly intact, Motor Exam 5/5 strength throughout Psych/Mental Status: Normal Affect, Appropriate Microbiology Past 72 Hours 08/14/17 11:05 Mucosa - Nose Respiratory Panel (PCR) - Final 08/14/17 07:45 Mucosa - Nasopharyngeal Influenza Types A,B Direct FA (SHY) - Final Laboratory Results 08/14/17 06:56: Sodium 140, Potassium 3.9, Chloride 106, Carbon Dioxide 23.0, Anion Gap 11, BUN 15, Creatinine 1.39 H, Estim Creat Clear Calc 30.34, Est GFR ( MDRD) Af Amer 47 L, Est GFR (MDRD) Non-Af 39 L, BUN/Creatinine Ratio 10.8, Glucose 107, Calcium 8.2 L 08/14/17 06:56: WBC 7.7, RBC 3.36 L, Hgb 9.3 L, Hct 29.4 L, MCV 87.5, MCH 27.7, MCHC 31.6 L, RDW 17.1 H, RDW Differential 53.5 H, Plt Count 299, MPV 11.0, Immature Gran % (Auto) 0.400, Neut % (Auto) 67.9, Lymph % (Auto) 17.1 L, [place] % (Auto) 13.2 H, Eos % (Auto) 1.3, Baso % (Auto) 0.1, Absolute Neuts (auto) 5.2, Absolute Lymphs (auto) 1.32, Total Counted Not Reportable Current Medications Albuterol Sulfate (Ventolin Aerosols) 2.5 mg INHALATION Q4H PRN PRN PRN Reason: SHORTNESS OF BREATH Last Admin: 08/14/17 10:58 Dose: 2.5 mg Guaifenesin (Mucinex) 1,200 mg PO BID [facility] Last Admin: 08/14/17 06:06 Dose: 1,200 mg Heparin Sodium (Porcine) (Heparin Na) 5,000 unit SC Q8 [facility] Last Admin: 08/14/17 13:40 Dose: 5,000 u Sodium Chloride () 1,000 mls @ 75 mls/hr IV .[id number] [facility] Last Admin: 08/14/17 13:36 Dose: 75 mls/hr Levofloxacin (Levaquin) 750 mg in 150 mls @ 100 mls/hr IV Q48 [facility] Methylprednisolone (Solu-Medrol) 40 mg IV Q8 [facility] Last Admin: 08/14/17 13:36 Dose: 40 mg Nicotine (Nicoderm Cq (Pbkc)) 21 mg TRANSDERM. DAILY [facility] Nicotine Polacrilex (Rugby Nicotine (Bkc)) 2 mg PO Q2H PRN PRN PRN Reason: SMOKING CESSATION Pantoprazole Sodium (Protonix) 20 mg PO DAILY [facility] Last Admin: 08/14/17 11:21 Dose: 20 mg Pravastatin Sodium (Pravachol) 20 mg PO QHS [facility] Assessment/Plan Active and Suspected Problems Pneumonia (Acute) 1. Community-acquired pneumonia, stable vitals, no fever, blood cultures negative, respiratory panel and influenza negative presumptive, Add urine for Streptococcal and Legionella antigen,continue on IV Levaquin. 2. Acute COPD exacerbation, not on home oxygen, on 2 L of oxygen , continue PT treatment, IV steroids and antibiotics. 3. Mass like pleural-based nodular airspace disease/lung nodules, in a non- smoker, pulmonary team consulted, will await recommendation. 4. stage III chronic kidney disease, stable, slight improvement in her creatinine. 5. Dyslipidemia, on statin. 6. Nicotine use disorder, will start the nicotine patch and gum. 7. DVT prophylaxis with subcutaneous heparin.
[2017-08-14] MEDS: Pravastatin 20 MG Tablet PO (21:48)
[2017-08-15] MEDS: 0.9% Normal Saline 1,000 ML 75 ML IV (02:33)
[2017-08-15 03:43] VITALS: BP 128/61; PULSE 63; RESP 16; TEMP 36.4; O2SAT 98
[2017-08-15 06:10] LABS: Absolute Lymphocyte Count 0.65 X10^3/ul (0.83-4.51); Basophil# 0.01 X10^3/uL; Basophil% 0.1 % (0-1); Hematocrit 27.5 % (37-47); Hemoglobin 8.6 g/dl (12.0-15.0); Lymphocyte # 0.65 X10^3/ul (4.0); Lymphocyte % 9.1 % (19-41); Mean Corp Hgb Conc 31.3 g/gl (32-36); Mean Corpuscular Hgb 27.4 pg (27.0-32.0); Mean Corpuscular Volume 87.6 fL (81-99); Mean Platelet Vol. 10.8 fl (6.2-12.0); Monocyte% 5.6 % (0-10); Neutrophil # 6.02 X10^3/uL (2.7-7.7); Neutrophil % 84.8 % (47-70); Platelet Count 294 K/mm3 (150-450); RBC Distribution Width CV 17.1 % (11.6-14.6); RBC Distribution Width SD 53.8 fl (35.1-43.9); Red Blood Count 3.14 M/mm3 (4.2-5.4); White Blood Count 7.1 K/mm3 (4.4-11.0)
[2017-08-15 06:12] LABS: POSITIVE COUNT NO; POSITIVE DIFFERENTIAL NO; POSITIVE MORPHOLOGY NO
[2017-08-15 06:18] LABS: Anion Gap 9 (5-15); BUN 16 mg/dL (7-18); BUN/Creat Ratio 13.4 RATIO (10-20); Calcium,Total 8.2 mg/dL (8.5-10.1); Chloride 109 mmol/L (98-107); Creatinine, Serum 1.19 mg/dL (0.55-1.02); EST Glomerular Filtration Rate 46 mL/min (>60); Est Glom Filt Rate - Afr Amer 56 mL/min (>60); Estimated Creatinine Clearance 35.44 ml/min; Glucose 161 mg/dL (70-110); Potassium 4.3 mmol/L (3.5-5.1); Sodium Level 141 mmol/L (136-145)
[2017-08-15] MEDS: Pantoprazole Sodium 20 MG Tablet PO (06:21)
[2017-08-15 06:40] VITALS: PULSE 62; RESP 20
[2017-08-15] MEDS: Albuterol 2.5 MG/3 ML VIAL.NEB. INHALATION (06:40)
[2017-08-15 08:20] VITALS: BP 144/74; PULSE 74; RESP 20; TEMP 36.6; O2SAT 94
[2017-08-15] MEDS: guaiFENesin 1,200 MG Tablet 1200 MG PO (09:46)
--- NOTE | 2017-08-15 11:13 | PCM.PROGNOTE ---
Patient Problems: Active and Suspected Problems Pneumonia (Acute) Bronchiectasis (Acute) Subjective: Patient was seen and examined. She denies any current shortness of breath. She continues with an intermittent cough, little to no sputum production but when she does cough up mucus it is greenish in color. Denies any wheezing except sometimes with exertion. She has been on room air all morning and is tolerating well. Ambulatory pulse ox was ordered. She states she would like to follow-up in the pulmonary clinic as discussed previously. Objective: Labs reviewed. Patient remains hemodynamically stable, however hemoglobin has gone from 10.0-8.6. She has been getting normal saline at 75 mL/hour. Renal function has improved. She remains afebrile. - Physical Exam General: Alert, Oriented x3, Cooperative, No apparent distress, Well developed, Well nourished HEENT: Atraumatic, Normocephalic Oral: Moist Mucosa, No Gingival or Mucosal Lesions/ Ulcerations Neck: Supple, No Nodes, Trachea Midline Lungs: - - Very diminished throughout with no appreciable rales, wheezes, or rhonchi. + Wheeze with forced expiration. No conversational dyspnea. Cardiovascular: Regular rate, Regular Rhythm, Normal S1, Normal S2, Murmur, No rub noted, No Gallop Abdomen: Bowel Sounds Present, Soft, Non Tender, Non-Distended Extremities: No clubbing, No cyanosis, No edema Skin: No rashes Musculoskeletal: No Tenderness to Palpation of Joints or Extremities Lymphatic: No Cervical, Supraclavicular, or Inguinal Adenopathy Neurological: Neuro grossly intact Psych/Mental Status: - - Alert and oriented, somewhat anxious. Cooperative Vital Signs Temp Pulse Resp BP Pulse Ox 97.8 F 74 20 H 144/74 H 94 08/15/17 08:20 08/15/17 08:20 08/15/17 08:20 08/15/17 08:20 08/15/17 08:20 Oxygen Flow Rate 2 Oxygen Delivery Method Room Air Weight: 72.121 kg Body Mass Index (BMI) 24.9 Intake and Output for Last 24 Hours 08/13/17 08/14/17 08/15/17 23:59 23:59 23:59 Intake Total 2648 / 2648 1040 / 1040 Output Total 0 / 0 Balance 2648 / 2648 1040 / 1040 Microbiology Past 72 Hours 08/14/17 11:05 Respiratory Panel (PCR) - Final Mucosa - Nose 08/14/17 07:45 Influenza Types A,B Direct FA (SHY) - Final Mucosa - Nasopharyngeal Laboratory Tests Past 24 Hrs 08/14/17 08/15/17 08/15/17 06:56 05:05 05:05 WBC 7.7 7.1 RBC 3.36 L 3.14 L Hgb 9.3 L 8.6 L Hct 29.4 L 27.5 L MCV 87.5 87.6 MCH 27.7 27.4 MCHC 31.6 L 31.3 L RDW 17.1 H 17.1 H RDW Differential 53.5 H 53.8 H Plt Count 299 294 MPV 11.0 10.8 Immature Gran % (Auto) 0.400 0.400 Neut % (Auto) 67.9 84.8 H Lymph % (Auto) 17.1 L 9.1 L [place] % (Auto) 13.2 H 5.6 Eos % (Auto) 1.3 0.0 Baso % (Auto) 0.1 0.1 Absolute Neuts (auto) 5.2 6.0 Absolute Lymphs (auto) 1.32 0.65 L Total Counted Not Reportable Not Reportable Sodium 141 Potassium 4.3 Chloride 109 H Carbon Dioxide 23.0 Anion Gap 9 BUN 16 Creatinine 1.19 H Estim Creat Clear Calc 35.44 Est GFR (MDRD) Af Amer 56 L Est GFR (MDRD) Non-Af 46 L BUN/Creatinine Ratio 13.4 Glucose 161 H Calcium 8.2 L Assessment/Plan Active and Suspected Problems Pneumonia (Acute) Bronchiectasis (Acute) RECOMMENDATIONS 1. Wean supplemental oxygen to keep saturations 88-92% 2. Encourage Acapella 3. Continue aerosols, RX for nebulizer machine and albuterol at home 4. Continue antibiotics, DC if cultures negative 5. Likely okay to stop steroids 6. Start PPI, should be given prescription when discharged 7. Patient should follow-up with PCP regarding her large hiatal hernia, possible surgical evaluation for Becca if she desires 8. Ambulatory pulse ox prior to discharge 9. Follow-up in the pulmonary clinic in 2 weeks with ELECTRONIC GLUING MACHINE OPERATOR 10. Okay to discharge from pulmonary standpoint IMPRESSIONS 1. Basal bronchiectasis secondary to probable chronic aspiration secondary to hiatal hernia CTA of the chest showed pleural-based nodular airspace disease with questionable mass RLL with adjacent bronchial wall thickening and luminal narrowing. Patient has uncontrolled GERD and is likely chronically aspirating secondary to her hiatal hernia. Recommend initiating PPI and for patient to continue on discharge. She may be a surgical candidate for Becca procedure, but given her age and comorbidities, would need evaluated for this as an outpatient if fails therapy. The patient remains afebrile with no leukocytosis. She has no increase in her sputum production. Her lungs are essentially clear but very diminished. There is an expiratory wheeze with forced expiration. Encourage Acapella use given her bronchiectasis, this should be continued at home. Continue aerosols and antibiotics, may discontinue if cultures are negative. She does not have any wheezing and minimal shortness of breath, likely okay to discontinue her steroids as well. Complete an ambulatory pulse ox prior to discharge to assess the need for supplemental oxygen. Okay to discharge from pulmonary standpoint, she can follow-up in the pulmonary clinic with ELECTRONIC GLUING MACHINE OPERATOR in 2 weeks. 2. Lung nodules/tobacco abuse Again, patient has [id number] history of smoking, quit 1 week ago. With her extensive smoking history, cannot rule out malignancy. Would recommend repeat imaging in 3 months. This can be arranged in the outpatient pulmonary clinic. 3. Suspected COPD Do not suspect an exacerbation at this time. Patient has never followed with a cost report clerk or had pulmonary function testing that she is aware of, she was diagnosed by her PCP. Patient reports that she gets intermittently short of breath, however her activity tolerance is typically fairly good. She has an extensive smoking history. She has a chronic cough with only occasional sputum production that is typically green, likely related to her bronchiectasis. Patient reports subjective improvement with nebulizers versus MDI, she will need a prescription for nebulizer machine and medication when she is discharged. She can use the albuterol nebs twice daily and PRN. She can follow-up in the pulmonary clinic 2 weeks after discharge, at which time to PFTs can be arranged. She can also have a walking oximetry done at that time. 4. Chronic renal failure/hypertension/hyperlipidemia/anxiety/murmur Complicates care, management, recovery, and prognosis. Management per hospitalist team. The patient does have a murmur and would benefit from additional testing as an outpatient, she was instructed to follow-up with her PCP. This note was generated with [employer]ation software. It may contain incorrect words, spelling, and punctuation that were not noted in checking the note before signing.
--- NOTE | 2017-08-15 11:18 | PN_ITS ---
Patient Problems: Active and Suspected Problems Pneumonia (Acute) Bronchiectasis (Acute) Subjective: Patient was seen and examined. She denies any current shortness of breath. She continues with an intermittent cough, little to no sputum production but when she does cough up mucus it is greenish in color. Denies any wheezing except sometimes with exertion. She has been on room air all morning and is tolerating well. Ambulatory pulse ox was ordered. She states she would like to follow-up in the pulmonary clinic as discussed previously. Objective: Labs reviewed. Patient remains hemodynamically stable, however hemoglobin has gone from 10.0-8.6. She has been getting normal saline at 75 mL/hour. Renal function has improved. She remains afebrile. - Physical Exam General: Alert, Oriented x3, Cooperative, No apparent distress, Well developed, Well nourished HEENT: Atraumatic, Normocephalic Oral: Moist Mucosa, No Gingival or Mucosal Lesions/ Ulcerations Neck: Supple, No Nodes, Trachea Midline Lungs: - - Very diminished throughout with no appreciable rales, wheezes, or rhonchi. + Wheeze with forced expiration. No conversational dyspnea. Cardiovascular: Regular rate, Regular Rhythm, Normal S1, Normal S2, Murmur, No rub noted, No Gallop Abdomen: Bowel Sounds Present, Soft, Non Tender, Non-Distended Extremities: No clubbing, No cyanosis, No edema Skin: No rashes Musculoskeletal: No Tenderness to Palpation of Joints or Extremities Lymphatic: No Cervical, Supraclavicular, or Inguinal Adenopathy Neurological: Neuro grossly intact Psych/Mental Status: - - Alert and oriented, somewhat anxious. Cooperative Vital Signs Temp Pulse Resp BP Pulse Ox 97.8 F 74 20 H 144/74 H 94 08/15/17 08:20 08/15/17 08:20 08/15/17 08:20 08/15/17 08:20 08/15/17 08:20 Oxygen Flow Rate 2 Oxygen Delivery Method Room Air Weight: 72.121 kg Body Mass Index (BMI) 24.9 Intake and Output for Last 24 Hours 08/13/17 08/14/17 08/15/17 23:59 23:59 23:59 Intake Total 2648 / 2648 1040 / 1040 Output Total 0 / 0 Balance 2648 / 2648 1040 / 1040 Microbiology Past 72 Hours 08/14/17 11:05 Respiratory Panel (PCR) - Final Mucosa - Nose 08/14/17 07:45 Influenza Types A,B Direct FA (SHY) - Final Mucosa - Nasopharyngeal Laboratory Tests Past 24 Hrs 08/14/17 08/15/17 08/15/17 06:56 05:05 05:05 WBC 7.7 7.1 RBC 3.36 L 3.14 L Hgb 9.3 L 8.6 L Hct 29.4 L 27.5 L MCV 87.5 87.6 MCH 27.7 27.4 MCHC 31.6 L 31.3 L RDW 17.1 H 17.1 H RDW Differential 53.5 H 53.8 H Plt Count 299 294 MPV 11.0 10.8 Immature Gran % (Auto) 0.400 0.400 Neut % (Auto) 67.9 84.8 H Lymph % (Auto) 17.[address] [place] % (Auto) 13.2 H 5.6 Eos % (Auto) 1.3 0.0 Baso % (Auto) 0.1 0.1 Absolute Neuts (auto) 5.2 6.0 Absolute Lymphs (auto) 1.32 0.65 L Total Counted Not Reportable Not Reportable Sodium 141 Potassium 4.3 Chloride 109 H Carbon Dioxide 23.0 Anion Gap 9 BUN 16 Creatinine 1.19 H Estim Creat Clear Calc 35.44 Est GFR (MDRD) Af Amer 56 L Est GFR (MDRD) Non-Af 46 L BUN/Creatinine Ratio 13.4 Glucose 161 H Calcium 8.2 L Assessment/Plan Active and Suspected Problems Pneumonia (Acute) Bronchiectasis (Acute) RECOMMENDATIONS 1. Wean supplemental oxygen to keep saturations 88-92% 2. Encourage Acapella 3. Continue aerosols, RX for nebulizer machine and albuterol at home 4. Continue antibiotics, DC if cultures negative 5. Likely okay to stop steroids 6. Start PPI, should be given prescription when discharged 7. Patient should follow-up with PCP regarding her large hiatal hernia, possible surgical evaluation for Becca if she desires 8. Ambulatory pulse ox prior to discharge 9. Follow-up in the pulmonary clinic in 2 weeks with SPECIAL AGENT [employer] 10. Okay to discharge from pulmonary standpoint IMPRESSIONS 1. Basal bronchiectasis secondary to probable chronic aspiration secondary to hiatal hernia CTA of the chest showed pleural-based nodular airspace disease with questionable mass RLL with adjacent bronchial wall thickening and luminal narrowing. Patient has uncontrolled GERD and is likely chronically aspirating secondary to her hiatal hernia. Recommend initiating PPI and for patient to continue on discharge. She may be a surgical candidate for Becca procedure, but given her age and comorbidities, would need evaluated for this as an outpatient if fails therapy. The patient remains afebrile with no leukocytosis. She has no increase in her sputum production. Her lungs are essentially clear but very diminished. There is an expiratory wheeze with forced expiration. Encourage Acapella use given her bronchiectasis, this should be continued at home. Continue aerosols and antibiotics, may discontinue if cultures are negative. She does not have any wheezing and minimal shortness of breath, likely okay to discontinue her steroids as well. Complete an ambulatory pulse ox prior to discharge to assess the need for supplemental oxygen. Okay to discharge from pulmonary standpoint, she can follow-up in the pulmonary clinic with SPECIAL AGENT FBI in 2 weeks. 2. Lung nodules/tobacco abuse Again, patient has [id number] history of smoking, quit 1 week ago. With her extensive smoking history, cannot rule out malignancy. Would recommend repeat imaging in 3 months. This can be arranged in the outpatient pulmonary clinic. 3. Suspected COPD Do not suspect an exacerbation at this time. Patient has never followed with a registered dietician or had pulmonary function testing that she is aware of, she was diagnosed by her PCP. Patient reports that she gets intermittently short of breath, however her activity tolerance is typically fairly good. She has an extensive smoking history. She has a chronic cough with only occasional sputum production that is typically green, likely related to her bronchiectasis. Patient reports subjective improvement with nebulizers versus MDI, she will need a prescription for nebulizer machine and medication when she is discharged. She can use the albuterol nebs twice daily and PRN. She can follow -up in the pulmonary clinic 2 weeks after discharge, at which time to PFTs can be arranged. She can also have a walking oximetry done at that time. 4. Chronic renal failure/hypertension/hyperlipidemia/anxiety/murmur Complicates care, management, recovery, and prognosis. Management per hospitalist team. The patient does have a murmur and would benefit from additional testing as an outpatient, she was instructed to follow-up with her PCP. This note was generated with [employer] software. It may contain incorrect words, spelling, and punctuation that were not noted in checking the note before signing.
[2017-08-15 11:52] VITALS: O2SAT 92
[2017-08-15 11:53] VITALS: O2SAT 92; O2SAT 96
--- NOTE | 2017-08-15 13:31 | PCM.DC ---
- Discharge Diagnoses Current Active Problems: Current Active and Chronic Problems Pneumonia (Acute) Tobacco abuse (Chronic) GERD (gastroesophageal reflux disease) (Chronic) Anxiety (Chronic) Bronchiectasis (Acute) Reason(s) for Visit for Discharge Instructions: Shortness of breath You will use the following diet at home:: Cardiac Your food should be the consistency of: Regular Your liquids should be the consistency of: Regular/Thin Discharge Activity: Return to Normal Activity Allergies/Adverse Reactions: Allergies lisinopril Allergy (Verified 08/14/17 05:45) Angioedema Medications to take at Discharge Pravastatin [Pravachol] 20 mg PO QHS 07/03/13 Albuterol Inhaler [Ventolin Hfa] 1 - 2 puff INHALATION Q4H PRN PRN #1 inhaler 04/26/17 Albuterol Aerosols [Ventolin Aerosols] 2.5 mg INHALATION Q4H PRN PRN #1 box 08/15/17 Guaifenesin [Mucinex] 1,200 mg PO BID #30 tab 08/15/17 Levofloxacin [Levaquin] 750 mg PO Q48H #5 tab 08/15/17 Nicotine Polacrilex [Nicotine Gum] 2 mg PO Q2H PRN PRN #30 gum 08/15/17 Nicotine [Nicoderm Cq] 21 mg TRANSDERM. DAILY #30 patch 08/15/17 Pantoprazole Sodium [Protonix] 20 mg PO DAILY #30 tab 08/15/17 The following prescriptions were given: Nicotine Polacrilex [Nicotine Gum] 2 mg PO Q2H PRN PRN #30 gum PRN Reason: SMOKING CESSATION Albuterol Aerosols [Ventolin Aerosols] 2.5 mg INHALATION Q4H PRN PRN #1 box PRN Reason: SHORTNESS OF BREATH Levofloxacin [Levaquin] 750 mg PO Q48H #5 tab Nicotine [Nicoderm Cq] 21 mg TRANSDERM. DAILY #30 patch Pantoprazole Sodium [Protonix] 20 mg PO DAILY #30 tab Guaifenesin [Mucinex] 1,200 mg PO BID #30 tab Primary Care Physician: Jethro Goel DO [Primary Care Provider] - Please follow up with your Primary Care Physician in: within 2 weeks Please Follow Up With: Omar Johnson MD When: within 2 weeks Proposed Discharge Date: 08/15/17
[2017-08-15 14:01] LABS: Hematocrit 28.4 % (37-47); Hemoglobin 8.9 g/dl (12.0-15.0)
--- NOTE | 2017-08-15 15:28 | PCM.DC.SUM ---
Discharge Date and Diagnosis Date of Admission: 08/14/17 Date of Discharge: 08/15/17 - Primary Discharge Diagnosis Active and Suspected Problems Pneumonia (Acute) Bronchiectasis (Acute) - Secondary Discharge Diagnosis Chronic Problems HLD (hyperlipidemia) (Chronic) HTN (hypertension) (Chronic) Urinary, incontinence, stress female (Chronic) Chronic renal failure, stage 3 (moderate) (Chronic) Tobacco abuse (Chronic) GERD (gastroesophageal reflux disease) (Chronic) Anxiety (Chronic) Hospital Course and Treatment Imaging Results: Clinical Impression(s) from Imaging Studies Chest X-Ray 08/14/17 00:51 IMPRESSION: Right basilar opacities may represent developing consolidation. There is no obvious effusion. Electronically Signed: Dilma Fleming MD at 1:54 EST Tel Direct: [phone], Service support , Chest CTA 08/14/17 01:49 IMPRESSION: 1. No demonstrated pulmonary embolism, aneurysm, leak or arterial dissection. 2. Pleural-based nodular airspace disease somewhat masslike right lower lobe with adjacent bronchial wall thickening and luminal narrowing. This may be due to inflammatory/infectious process, follow-up examination to resolution recommended to exclude underlying neoplasm. 3. Multiple parenchymal nodules as above, comparison with previous examination for stability assessment recommended. 4. Emphysema. 5. Atherosclerosis. 6. Coronary artery disease. 7. Moderate to large hiatal hernia. 8. Low-attenuation right hepatic lobe not consistent with a cyst. Correlation to previous assessment and workup recommended. 9. Low-attenuation left hepatic lobe probably a cyst. 10. Right renal cortical hyperattenuation is indeterminate. This can be seen with a hemorrhagic cyst. Again correlation with previous examination of stability assessment recommended. 11. Suspected thyroid nodules. This can be further assessed if needed with ultrasound. CT Follow-Up of Small Pulmonary Nodules Nodule size is average of length and width. Nodule size. Low risk patient. Non smoking history. <4mm No follow-up needed (risk of malignancy <1%) 4-6mm Follow up CT at 12 months, if unchanged, no further imaging needed. 6-8mm Initial follow up at 6-12 month, then at 18-24 months if no changes. > 8mm Follow-up CT at 3, 9, and 24 months, dynamic contrast CT, PET and /or biopsy. Nodule size. High risk patients. Smoking history. <4mm Follow-up 12 months: if unchanged, no further follow-up. 4-6mm Initial follow-up at 6-12 months,then at 18-24 months if no change. 6-8mm Initial follow-up at 3-6months, then at 9-12 and 24 months if no change. >8mm Same as for low risk patient. [employer] STATEMENT Electronically Signed: Shobha Pepe MD at 3:29 EST , Service support , Pulmonology Operations: None Procedures: None Summary of Care Provided: The patient is a 82 year old F past medical history of CKD, hyperlipidemia, hypertension who comes to the urgency with complaints of shortness of breath and cough. Patient was seen a week prior in the emergency room, treated with steroids and azithromycin for COPD exacerbation, but this progressed resulted in him returning back to the ED. In the ED workup for PE was negative by the CT of the chest showed a pleural-based nodular airspace disease, possible parenchymal nodules and infiltrates. Active management is as follows: 1. Community-acquired pneumonia without sepsis, probable chronic aspiration due to presence of large hiatal hernia, influenza and respiratory panel screen was negative, blood cultures were pending at the time of discharge, managed on IV Levaquin and discharged on Levaquin, pantoprazole 2. Possible Acute COPD exacerbation, probable bronchiectasis, hypoxic on arrival, managed on 2 L of oxygen and weaned off oxygen, did not qualify for ambulatory home oxygen, pulmonology team consulted felt patient did not need any steroids, steroids with discontinued in the hospital. She will follow-up with her pulmonary team in the outpatient in 2 weeks. 3. Mass like pleural-based nodular airspace disease/lung nodules, patient is a chronic smoker, , she will need repeat CT scan of the chest in 3 months to follow-up on the lung nodules 4. Acute kidney injury on stage III chronic kidney disease, present on admission, gradual improvement in her creatinine with IV hydration, discharge creatinine was 1.19, need to repeat a BMP in the outpatient within 3 days 5. Dyslipidemia, on statin. 6. Nicotine use disorder, and on nicotine patch and gum, discharged on the same, advised to quit Discharge Diet: Low fat/ Low Cholesterol, 2000 mg Sodium Diet Discharge Activity: Return to Normal Activity Home Medications: Medications to take at Discharge Pravastatin [Pravachol] 20 mg PO QHS 07/03/13 Albuterol Inhaler [Ventolin Hfa] 1 - 2 puff INHALATION Q4H PRN PRN #1 inhaler 04/26/17 Albuterol Aerosols [Ventolin Aerosols] 2.5 mg INHALATION Q4H PRN PRN #1 box 08/15/17 Guaifenesin [Mucinex] 1,200 mg PO BID #30 tab 08/15/17 Levofloxacin [Levaquin] 750 mg PO Q48H #5 tab 08/15/17 Nicotine Polacrilex [Nicotine Gum] 2 mg PO Q2H PRN PRN #30 gum 08/15/17 Nicotine [Nicoderm Cq] 21 mg TRANSDERM. DAILY #30 patch 08/15/17 Pantoprazole Sodium [Protonix] 20 mg PO DAILY #30 tab 08/15/17 Following Prescrptions Were Given to Patient: Nicotine Polacrilex [Nicotine Gum] 2 mg PO Q2H PRN PRN #30 gum PRN Reason: SMOKING CESSATION Albuterol Aerosols [Ventolin Aerosols] 2.5 mg INHALATION Q4H PRN PRN #1 box PRN Reason: SHORTNESS OF BREATH Levofloxacin [Levaquin] 750 mg PO Q48H #5 tab Nicotine [Nicoderm Cq] 21 mg TRANSDERM. DAILY #30 patch Pantoprazole Sodium [Protonix] 20 mg PO DAILY #30 tab Guaifenesin [Mucinex] 1,200 mg PO BID #30 tab Primary Care Physician: Jethro Goel DO [Primary Care Provider] - Please follow up with your Primary Care Physician in: within 2 weeks Please Follow Up With: Omar Johnson MD When: within 2 weeks Disposition: Home Minutes spent on discharge:: 25 Patient Condition:: Stable Meaningful Use Info Meaningful Use Diagnoses (Choose all that apply): None applicable Code Visit Inpatient E&M: 54880 Disch Hosp
--- NOTE | 2017-08-15 15:33 | DS.PCM_ITS ---
Discharge Date and Diagnosis Date of Admission: 08/14/17 Date of Discharge: 08/15/17 - Primary Discharge Diagnosis Active and Suspected Problems Pneumonia (Acute) Bronchiectasis (Acute) - Secondary Discharge Diagnosis Chronic Problems HLD (hyperlipidemia) (Chronic) HTN (hypertension) (Chronic) Urinary, incontinence, stress female (Chronic) Chronic renal failure, stage 3 (moderate) (Chronic) Tobacco abuse (Chronic) GERD (gastroesophageal reflux disease) (Chronic) Anxiety (Chronic) Hospital Course and Treatment Imaging Results: Clinical Impression(s) from Imaging Studies Chest X-Ray 08/14/17 00:51 IMPRESSION: Right basilar opacities may represent developing consolidation. There is no obvious effusion. Electronically Signed: Dilma Fleming MD at 1:54 EST Tel Direct: [phone], Service support , Chest CTA 08/14/17 01:49 IMPRESSION: 1. No demonstrated pulmonary embolism, aneurysm, leak or arterial dissection. 2. Pleural-based nodular airspace disease somewhat masslike right lower lobe with adjacent bronchial wall thickening and luminal narrowing. This may be due to inflammatory/infectious process, follow-up examination to resolution recommended to exclude underlying neoplasm. 3. Multiple parenchymal nodules as above, comparison with previous examination for stability assessment recommended. 4. Emphysema. 5. Atherosclerosis. 6. Coronary artery disease. 7. Moderate to large hiatal hernia. 8. Low-attenuation right hepatic lobe not consistent with a cyst. Correlation to previous assessment and workup recommended. 9. Low-attenuation left hepatic lobe probably a cyst. 10. Right renal cortical hyperattenuation is indeterminate. This can be seen with a hemorrhagic cyst. Again correlation with previous examination of stability assessment recommended. 11. Suspected thyroid nodules. This can be further assessed if needed with ultrasound. CT Follow-Up of Small Pulmonary Nodules Nodule size is average of length and width. Nodule size. Low risk patient. Non smoking history. <4mm No follow-up needed (risk of malignancy <1%) 4-6mm Follow up CT at 12 months, if unchanged, no further imaging needed. 6-8mm Initial follow up at 6-12 month, then at 18-24 months if no changes. > 8mm Follow-up CT at 3, 9, and 24 months, dynamic contrast CT, PET and /or biopsy. Nodule size. High risk patients. Smoking history. <4mm Follow-up 12 months: if unchanged, no further follow-up. 4-6mm Initial follow-up at 6-12 months,then at 18-24 months if no change. 6-8mm Initial follow-up at 3-6months, then at 9-12 and 24 months if no change. >8mm Same as for low risk patient. [employer] STATEMENT Electronically Signed: Shobha Pepe MD at 3:29 EST , Service support , Pulmonology Operations: None Procedures: None Summary of Care Provided: The patient is a 82 year old F past medical history of CKD, hyperlipidemia, hypertension who comes to the urgency with complaints of shortness of breath and cough. Patient was seen a week prior in the emergency room, treated with steroids and azithromycin for COPD exacerbation, but this progressed resulted in him returning back to the ED. In the ED workup for PE was negative by the CT of the chest showed a pleural-based nodular airspace disease, possible parenchymal nodules and infiltrates. Active management is as follows: 1. Community-acquired pneumonia without sepsis, probable chronic aspiration due to presence of large hiatal hernia, influenza and respiratory panel screen was negative, blood cultures were pending at the time of discharge, managed on IV Levaquin and discharged on Levaquin, pantoprazole 2. Possible Acute COPD exacerbation, probable bronchiectasis, hypoxic on arrival , managed on 2 L of oxygen and weaned off oxygen, did not qualify for ambulatory home oxygen, pulmonology team consulted felt patient did not need any steroids, steroids with discontinued in the hospital. She will follow-up with her pulmonary team in the outpatient in 2 weeks. 3. Mass like pleural-based nodular airspace disease/lung nodules, patient is a chronic smoker, , she will need repeat CT scan of the chest in 3 months to follow-up on the lung nodules 4. Acute kidney injury on stage III chronic kidney disease, present on admission, gradual improvement in her creatinine with IV hydration, discharge creatinine was 1.19, need to repeat a BMP in the outpatient within 3 days 5. Dyslipidemia, on statin. 6. Nicotine use disorder, and on nicotine patch and gum, discharged on the same , advised to quit Discharge Diet: Low fat/ Low Cholesterol, 2000 mg Sodium Diet Discharge Activity: Return to Normal Activity Home Medications: Medications to take at Discharge Pravastatin [Pravachol] 20 mg PO QHS 07/03/13 Albuterol Inhaler [Ventolin Hfa] 1 - 2 puff INHALATION Q4H PRN PRN #1 inhaler Albuterol Aerosols [Ventolin Aerosols] 2.5 mg INHALATION Q4H PRN PRN #1 box Guaifenesin [Mucinex] 1,200 mg PO BID #30 tab 08/15/17 Levofloxacin [Levaquin] 750 mg PO Q48H #5 tab 08/15/17 Nicotine Polacrilex [Nicotine Gum] 2 mg PO Q2H PRN PRN #30 gum 08/15/17 Nicotine [Nicoderm Cq] 21 mg TRANSDERM. DAILY #30 patch 08/15/17 Pantoprazole Sodium [Protonix] 20 mg PO DAILY #30 tab 08/15/17 Following Prescrptions Were Given to Patient: Nicotine Polacrilex [Nicotine Gum] 2 mg PO Q2H PRN PRN #30 gum PRN Reason: SMOKING CESSATION Albuterol Aerosols [Ventolin Aerosols] 2.5 mg INHALATION Q4H PRN PRN #1 box PRN Reason: SHORTNESS OF BREATH Levofloxacin [Levaquin] 750 mg PO Q48H #5 tab Nicotine [Nicoderm Cq] 21 mg TRANSDERM. DAILY #30 patch Pantoprazole Sodium [Protonix] 20 mg PO DAILY #30 tab Guaifenesin [Mucinex] 1,200 mg PO BID #30 tab Primary Care Physician: Jethro Goel DO [Primary Care Provider] - Please follow up with your Primary Care Physician in: within 2 weeks Please Follow Up With: Omar Johnson MD When: within 2 weeks Disposition: Home Minutes spent on discharge:: 25 Patient Condition:: Stable Meaningful Use Info Meaningful Use Diagnoses (Choose all that apply): None applicable Code Visit Inpatient E&M: 66991 Disch Hosp
[2017-08-15 15:50] VITALS: BP 119/71; PULSE 82; RESP 18; TEMP 37.1; O2SAT 98
--- NOTE | 2017-09-03 13:56 | CCN.REFER ---
CONTINUES TO NOT RETURN CCN CALLS TO SEE IF INTERESTED IN CCN SERVICES. WEEKLY VOICEMAILS LEFT OVER LAST 3 WEEKS.
== END 2017-08-15 13:27 | disposition home or self-care (01) | DRG 191 ==
LOC: ED 01:02 → MS2 05:15
PROVIDERS: Admitting Provider Internal Medicine; Emergency Provider Emergency Medicine; Family Provider Student in an Organized Health Care Education/Training Program; PCP Student in an Organized Health Care Education/Training Program; Visit Provider Internal Medicine
DX: J47.0 Bronchiectasis with acute lower respiratory infection (principal); N17.9 Acute kidney failure, unspecified; J18.9 Pneumonia, unspecified organism; N18.3 Chronic kidney disease, stage 3 (moderate); E78.5 Hyperlipidemia, unspecified; I12.9 Hypertensive chronic kidney disease with stage 1 through stage 4 chronic kidney disease, or unspecified chronic kidney disease; Z72.0 Tobacco use; K44.9 Diaphragmatic hernia without obstruction or gangrene; R01.1 Cardiac murmur, unspecified; R91.8 Other nonspecific abnormal finding of lung field; R09.02 Hypoxemia; K21.9 Gastro-esophageal reflux disease without esophagitis; F41.9 Anxiety disorder, unspecified; N39.3 Stress incontinence (female) (male); J47.1 Bronchiectasis with (acute) exacerbation
CPT/HCPCS: 36415; 71010; 71275; 80048; 83880; 84484; 85014; 85018; 85025; 85379; 87040; 87070; 87205; 87633; 87804; 93005; 94640; 94667; 94668; 99285; J7030; Q9967; A4216

== ENCOUNTER 2017-09-28 02:35 | Emergency (ER) | payer MEDICARE, SELFPAY ==
[2017-09-28 02:36] VITALS: BP 155/76; PULSE 71; RESP 17; TEMP 36.6; O2SAT 98; BMI 63.2
[2017-09-28 02:38] VITALS: O2SAT 98
[2017-09-28] MEDS: Ipratropium/Albuterol Sulfate 3 ML AMPUL.NEB INHALATION (03:01)
[2017-09-28] MEDS: Albuterol 2.5 MG/3 ML VIAL.NEB. INHALATION ×2 (03:01)
[2017-09-28 03:02] VITALS: PULSE 65; RESP 10
--- NOTE | 2017-09-28 03:43 | ED.VISSUMM ---
- ER Visit Summary Date of Service: 09/28/17 Chief Complaint: Cough, congestion, short of breath History of Present Illness: The patient is a 82 F who said cough and congestion for the past 3 days. Patient states she feels like she cannot get a deep enough breath. She denies fever. She denies chest pain. She does have a history of COPD. She last used her aerosol several hours ago. She has home oxygen that she can use as needed, but has not required it recently. Physical Examination: Vital signs are unremarkable. Her respiratory rate is 17 and her pulse ox is 98% on room air. Patient is in no acute distress and is nontoxic appearing. Head and neck examination is normal. Heart is regular rate and rhythm. Palpable pulses are noted throughout. Lungs are diminished throughout. Abdomen is soft and nontender. Test Results: [] Emergency Department Course and Treatment: Patient was given aerosol treatments. She requested something for reflux as she has not taken her Protonix recently. She is given a GI cocktail. On repeat evaluation she has significantly improved air movement throughout. She is given a dose of prednisone and Zithromax. Treatment Plan: [] Disposition: Discharged Impression: COPD exacerbation This note was generated with [employer] dictation software. It may contain incorrect words, spelling, and punctuation that were not noted in review of the chart prior to signing ED Disposition - Plan for ED Patient: Disposition: Home or Assisted Living Chief Complaint: Shortness of Breath Instructions: ED COPD Flare Prescriptions: Azithromycin [Zithromax] 250 mg PO DAILY #4 tablet Prednisone [Deltasone] 60 mg PO DAILY #15 tablet Referrals: Jethro Goel DO [Primary Care Provider] - 1 Week
[2017-09-28] MEDS: Azithromycin 250 MG Tablet 500 MG PO (03:52)
[2017-09-28 03:55] VITALS: BP 129/86; PULSE 69; RESP 15; O2SAT 96
== END 2017-09-28 03:57 | disposition home or self-care (01) ==
PROVIDERS: Emergency Provider Emergency Medicine; Family Provider Student in an Organized Health Care Education/Training Program; PCP Student in an Organized Health Care Education/Training Program
DX: J44.1 Chronic obstructive pulmonary disease with (acute) exacerbation (principal); Z87.891 Personal history of nicotine dependence; K21.9 Gastro-esophageal reflux disease without esophagitis; E78.00 Pure hypercholesterolemia, unspecified; Z86.73 Personal history of transient ischemic attack (TIA), and cerebral infarction without residual deficits; Z79.899 Other long term (current) drug therapy
CPT/HCPCS: 94640; 99283

== ENCOUNTER 2017-10-08 03:30 | Emergency (ER) | payer MEDICARE, SELFPAY ==
[2017-10-08 03:32] VITALS: BP 163/80; PULSE 84; RESP 20; TEMP 36.9; O2SAT 98; BMI 25.5
[2017-10-08 03:40] VITALS: O2SAT 97
--- NOTE | 2017-10-08 03:48 | ED.DEP ---
ED Disposition - Plan for ED Patient: Disposition: Home or Assisted Living Chief Complaint: Shortness of Breath Instructions: What is COPD? Prescriptions: Albuterol Aerosols [Ventolin Aerosols] 2.5 mg INHALATION Q4H PRN #25 vial Referrals: Jethro Goel DO [Primary Care Provider] -
--- NOTE | 2017-10-08 03:49 | ED.DCSUM_ITS ---
- ER Visit Summary Date of Service: 10/08/17 Chief Complaint: [] Chronic COPD has been short of breath chronically. She has been out of her albuterol for the last couple days. Normally she uses 2-3 per day. Comes in for a breathing treatment. She recently was seen in the emergency department on the of last month he received prednisone Z-Jf and a breathing treatment. She just finished these up. History of Present Illness: The patient is a 82 F see above Physical Examination: [] Vital signs reviewed General: Well-nourished well-developed Head: Normocephalic atraumatic Eyes: Pupils equal round and reactive to light extraocular movements intact ENT: TMs clear no hemotympanum no trauma Neck: Nontender full range of motion Cardiovascular: Regular rate rhythm no murmurs normal S1-S2 Respiratory: No distress clear to auscultation bilaterally chest nontender Abdomen: Soft nontender nondistended normal bowel sounds no masses Back: Nontender no CVA tenderness Extremities: Nontender active range of motion ?4 extremities no trauma Skin: Normal color no trauma Neuro alert oriented cranial nerves II through XII intact normal strength sensation reflexes Test Results: [] Emergency Department Course and Treatment: [] This time patient is not having a real exacerbation. She has subjective dyspnea with COPD. She was given 1 breathing treatment and will be discharged with a prescription for more albuterol. Treatment Plan: [] Disposition: [] Impression: [] COPD with dyspnea This note was generated with [employer] dictation software. It may contain incorrect words, spelling, and punctuation that were not noted in review of the chart prior to signing ED Disposition - Plan for ED Patient: Chief Complaint: Shortness of Breath Referrals: Jethro Goel DO [Primary Care Provider] -
[2017-10-08] MEDS: Ipratropium/Albuterol Sulfate 3 ML AMPUL.NEB INHALATION (04:07)
[2017-10-08 04:08] VITALS: PULSE 74; RESP 16
[2017-10-08 04:16] VITALS: RESP 20; O2SAT 98
== END 2017-10-08 04:23 | disposition home or self-care (01) ==
PROVIDERS: Emergency Provider Emergency Medicine; Family Provider Student in an Organized Health Care Education/Training Program; PCP Student in an Organized Health Care Education/Training Program
DX: J44.9 Chronic obstructive pulmonary disease, unspecified (principal); E78.00 Pure hypercholesterolemia, unspecified; Z87.891 Personal history of nicotine dependence
CPT/HCPCS: 94640; 99284

== ENCOUNTER 2017-10-23 01:04 | Emergency (ER) | payer MEDICARE, SELFPAY ==
[2017-10-23 01:06] VITALS: BP 149/86; PULSE 85; RESP 18; TEMP 36.6; O2SAT 97; BMI 25.5
--- NOTE | 2017-10-23 01:47 | RAD_ITS ---
STUDY: X-RAY CHEST REASON FOR EXAM: Female, 82 years old. Chronic shortness of breath, history of COPD TECHNIQUE: PA and lateral views of the chest. COMPARISON: 09/21/2017 FINDINGS: Stable hiatal hernia. There is hyperinflation of the lungs consistent with chronic obstructive lung disease (COPD). There is no demonstrated pleural abnormality. Normal size heart. There are calcified mediastinal lymph nodes. Normal visualized pulmonary arteries. Normal visualized aortic arch and descending thoracic aorta. There is demineralization of the osseous structures. Normal visualized ribs, clavicles, and shoulders. There is no demonstrated abnormality of the visualized soft tissue structures of the upper abdomen. RAD/Chest PA and Lateral IMPRESSION: Copd, remote granulomatous exposure and stable hiatal hernia. No acute cardiopulmonary disease. No significant interval change. Electronically Signed: Shobha Pepe MD at 2:56 EST , Service support ,
[2017-10-23 03:17] VITALS: O2SAT 96
--- NOTE | 2017-10-23 03:51 | ED.VISSUMM ---
- ER Visit Summary Date of Service: 10/23/17 Chief Complaint: Dyspnea History of Present Illness: The patient is a 82 F worsening dyspnea since this morning. Mild cough with clear sputum. No fever, chills, sweats. No chest pains. History of COPD without any home oxygen. Remote tobacco in the past. No recent travel, surgeries, or immobilizations. No history of PE or DVT. States she was started on Symbicort 2 weeks ago by her PCP with no improvement. She states she does not have a rescue inhaler. No further complaints. Physical Examination: General: Alert and oriented ?3, no acute distress HEENT: Normocephalic, atraumatic. Moist mucosa membranes Neck: supple, nontender. Cardiovascular: Regular rate and rhythm, no murmurs Respiratory: Normal breath sounds, symmetric, no distress Abdomen: Soft, nontender, nondistended Extremities: Nontender, no edema, pulses intact ?4 Neuro: no focal neurological deficits. Test Results: Chest x-ray negative. Emergency Department Course and Treatment: Patient vitals completely normal, no respiratory distress, no wheezing. Chest x-ray obtained which was negative. She provided MDI inhaler. She is ambulated asymptomatic. Reevaluation discussion, she states she has been having nasal symptoms that causes her difficulty breathing. She states she has seen ENT in the hospital in the past was told to follow-up for which she thinks is Dr. Patel. Discussed URI symptoms with the patient due to her cough. However with her complaints of sinus symptoms and nasal symptoms I did give her Dr. Patel's information for outpatient follow-up and evaluation. She will continue her Symbicort, used a rescue inhaler as needed. She will follow-up both with her PCP and ENT as needed. All questions were answered. Treatment Plan: [] Disposition: Discharge Impression: Acute upper respiratory infection This note was generated with [employer] dictation software. It may contain incorrect words, spelling, and punctuation that were not noted in review of the chart prior to signing ED Disposition - Plan for ED Patient: Disposition: Home or Assisted Living Chief Complaint: Shortness of Breath Diagnosis: URI (upper respiratory infection) Instructions: ED Upper Resp Infec No Abx Tx Referrals: Jethro Goel DO [Primary Care Provider] - 5-7 Days Karan Patel MD [STAFF PHYSICIAN] - Additional Instructions: Use rescue inhaler as needed every 4 hours. Continue Symbicort as prescribed. With nasal and sinus symptoms, discuss with PCP for follow-up with ENT.
[2017-10-23 03:53] VITALS: RESP 18; O2SAT 96
== END 2017-10-23 03:58 | disposition home or self-care (01) ==
PROVIDERS: Emergency Provider Emergency Medicine; Family Provider Student in an Organized Health Care Education/Training Program; PCP Student in an Organized Health Care Education/Training Program
DX: J06.9 Acute upper respiratory infection, unspecified (principal); J44.9 Chronic obstructive pulmonary disease, unspecified; Z87.891 Personal history of nicotine dependence
CPT/HCPCS: 71046

== ENCOUNTER 2017-10-23 07:43 | Emergency (ER) | payer MEDICARE, SELFPAY ==
[2017-10-23 07:43] VITALS: BP 167/94; PULSE 86; RESP 24; TEMP 36.5; O2SAT 95; BMI 25.3
--- NOTE | 2017-10-23 07:54 | EKG12_ITS ---
Test Reason : SOB Blood Pressure : / mmHG Vent. Rate : 071 BPM Atrial Rate : 071 BPM P-R Int : 158 ms QRS Dur : 086 ms QT Int : 404 ms P-R-T Axes : 057 -20 020 degrees QTc Int : 439 ms Normal sinus rhythm with sinus arrhythmia Normal ECG Confirmed by REBA BARLOW, ENEIDA ([id number]), image editor RAJESH MARTIN ([id number]) on 10/25/2017 1:11:22 PM Referred By: MARK Confirmed By:ENEIDA BRITTON MD
--- NOTE | 2017-10-23 07:59 | ED.DCSUM_ITS ---
- ER Visit Summary Date of Service: 10/23/17 Chief Complaint: Shortness of breath History of Present Illness: The patient is a 82 F who complains of shortness of breath and head congestion. Patient does have a history of COPD. Patient was seen in the ER earlier this morning for the same complaints. She had a chest x- ray that was unremarkable and was given albuterol MDI. Patient states the MDI does not work and she is requesting a breathing treatment. She complains of head congestion stating that she cannot breathe through her nose and her ears feel itchy. On review of records it does appear this is the patient's fifth visit in the last month for shortness of breath. Physical Examination: Blood pressure is 167/94, temperature 97.7, heart rate 86 , respiratory rate 24, pulse ox 95% on room air. Patient is sitting upright in bed no acute distress. She speaking full sentences. Head and neck examination was TMs to be clear bilaterally. No significant rhinorrhea is noted. Heart is regular rate and rhythm. Lung sounds are with very rare expiratory wheeze. She has good air movement throughout. Abdomen is soft and nontender. Extremity examination reveals no significant calf tenderness or edema. Test Results: EKG is sinus at 71 with no sign of acute ischemia. CBC reveals anemia with a hemoglobin of 8.8. This is consistent with her prior values. Chemistry studies reveal chronic renal insufficiency with a creatinine 1.45. Troponin is less than 0.02. Emergency Department Course and Treatment: Patient received a DuoNeb treatment along with Afrin nasal spray. On repeat evaluation she does feel improved. Lungs remain clear. Respiratory therapy will show patient how to use her MDI with spacer so that this will be more effective for her. She is to follow-up with Dr. Johnson as well as ENT as planned. Treatment Plan: [] Disposition: Discharge Impression: 1. Dyspnea, improved 2. Viral URI This note was generated with [employer] dictation software. It may contain incorrect words, spelling, and punctuation that were not noted in review of the chart prior to signing ED Disposition - Plan for ED Patient: Chief Complaint: Shortness of Breath Referrals: Jethro Goel DO [Primary Care Provider] -
[2017-10-23 08:05] VITALS: PULSE 73; RESP 16; O2SAT 95
[2017-10-23] MEDS: Ipratropium/Albuterol Sulfate 3 ML AMPUL.NEB INHALATION (08:05)
[2017-10-23 08:22] LABS: Absolute Lymphocyte Count 0.81 X10^3/ul (0.83-4.51); Absolute Neutrophil Count 4.3 X10^3/uL (2.0-7.7); Basophil# 0.03 X10^3/uL; Basophil% 0.5 % (0-1); Eosinophils% 1.8 % (0-5); Hematocrit 29.2 % (37-47); Hemoglobin 8.8 g/dl (12.0-15.0); Lymphocyte # 0.81 X10^3/ul (4.0); Lymphocyte % 14.3 % (19-41); Mean Corp Hgb Conc 30.1 g/gl (32-36); Mean Corpuscular Hgb 25.7 pg (27.0-32.0); Mean Corpuscular Volume 85.4 fL (81-99); Mean Platelet Vol. 9.4 fl (6.2-12.0); Monocyte# 0.39 X10^3/uL; Monocyte% 6.9 % (0-10); Neutrophil # 4.33 X10^3/uL (2.7-7.7); Neutrophil % 76.5 % (47-70); Platelet Count 314 K/mm3 (150-450); RBC Distribution Width CV 17.5 % (11.6-14.6); RBC Distribution Width SD 54.5 fl (35.1-43.9); Red Blood Count 3.42 M/mm3 (4.2-5.4); White Blood Count 5.7 K/mm3 (4.4-11.0)
[2017-10-23] MEDS: Oxymetazoline 0.05% 1 SPRAY SPRAY.BTL 2 SPRAY NASAL (08:23)
[2017-10-23 08:24] LABS: POSITIVE COUNT NO; POSITIVE DIFFERENTIAL NO; POSITIVE MORPHOLOGY NO
[2017-10-23 08:37] LABS: Anion Gap 8 (5-15); BUN 13 mg/dL (7-18); Chloride 104 mmol/L (98-107); Creatinine, Serum 1.45 mg/dL (0.55-1.02); EST Glomerular Filtration Rate 37 mL/min (>60); Est Glom Filt Rate - Afr Amer 44 mL/min (>60); Estimated Creatinine Clearance 29.09 ml/min; Glucose 117 mg/dL (74-106); Potassium 3.7 mmol/L (3.5-5.1); Sodium Level 140 mmol/L (136-145)
--- NOTE | 2017-10-23 08:54 | ED.DEP ---
ED Disposition - Plan for ED Patient: Disposition: Home or Assisted Living Chief Complaint: Shortness of Breath Instructions: ED URI Viral Referrals: Jethro Goel DO [Primary Care Provider] - 1 Week if not improving
[2017-10-23 09:07] VITALS: BP 130/72; PULSE 72; RESP 20; O2SAT 98
== END 2017-10-23 09:10 | disposition home or self-care (01) ==
PROVIDERS: Emergency Provider Emergency Medicine; Family Provider Student in an Organized Health Care Education/Training Program; PCP Student in an Organized Health Care Education/Training Program
DX: J06.9 Acute upper respiratory infection, unspecified (principal); J44.9 Chronic obstructive pulmonary disease, unspecified; E78.00 Pure hypercholesterolemia, unspecified; I10 Essential (primary) hypertension; Z87.891 Personal history of nicotine dependence; Z79.899 Other long term (current) drug therapy
CPT/HCPCS: 71046; 80048; 84484; 85025; 93005; 94640; 99283; 99285; A4216

== ENCOUNTER 2017-11-05 22:54 | Emergency (ER) | payer MEDICARE, SELFPAY ==
[2017-11-05 22:55] VITALS: BP 157/102; PULSE 84; RESP 18; TEMP 36.2; O2SAT 97; BMI 26.3
--- NOTE | 2017-11-05 23:52 | RAD_ITS ---
STUDY: X-RAY CHEST REASON FOR EXAM: Female, 82 years old. Shortness of breath TECHNIQUE: PA and lateral views of the chest. COMPARISON: 10/23/2017 FINDINGS: There is mild coarsened prominence of interstitial lung markings at bilateral lung bases, unchanged. No confluent airspace opacity. No pleural effusion or pneumothorax. Normal size heart. Small hiatal hernia. Normal visualized pulmonary arteries. There is atherosclerotic calcification of the aortic arch with tortuosity. There are diffuse degenerative changes of the visualized thoracic spine. Normal visualized ribs, clavicles, and shoulders. There is no demonstrated abnormality of the visualized soft tissue structures of the upper abdomen. RAD/Chest PA and Lateral IMPRESSION: 1. Chronic appearing bibasilar interstitial change with no evidence of acute cardiopulmonary disease. 2. Small hiatal hernia. Electronically Signed: Marino Nesbitt MD at 0:23 EST Tel , Service support ,
--- NOTE | 2017-11-06 00:30 | ED.VISSUMM ---
- ER Visit Summary Date of Service: 11/06/17 Chief Complaint: Shortness of breath History of Present Illness: The patient is a [address] Goel. 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 She reports that she has shortness of breath began 2 days ago. This is when she ran out of her albuterol nebulizer solution. She states that it is mild currently and moderate at worst. She denies any cough, fever, chills, or chest pain. She is not on home O2. Physical Examination: Vitals: Stable. Afebrile. General: Well-nourished and well-developed. Head: Normocephalic atraumatic. Neck: Supple, no lymphadenopathy. No JVD. Nontender. Cardiovascular: Regular rate and rhythm. 2 out of 6 systolic murmur. Respiratory: No respiratory distress. Minimal and expiratory wheezing, but greatly decreased air movement. Abdominal: Soft, nontender, nondistended, normal bowel sounds. No guarding, rebound, or peritoneal signs. Back: Nontender. Extremities: Nontender, no edema. Skin: Normal color, no rash. Neurologic: Alert and oriented ?3. Cranial nerves II through XII are intact. Normal strength and sensation. Psych: Normal affect. Test Results: Chest x-ray shows chronic changes. Emergency Department Course and Treatment: Patient is treated with DuoNeb aerosol here with significant relief. She is given a GI cocktail p.o. Treatment Plan: Patient will be discharged with solution for her nebulizer overnight and a prescription for albuterol solution and an albuterol MDI. Instructed to follow-up with Dr. Goel in 1-2 days if not improving. Return to the emergency department for any worsening symptoms. Disposition: To home in improved and stable condition. Impression: 1. COPD. This note was generated with [employer] dictation software. It may contain incorrect words, spelling, and punctuation that were not noted in review of the chart prior to signing ED Disposition - Plan for ED Patient: Disposition: Home or Assisted Living Chief Complaint: Shortness of Breath Instructions: ED COPD Flare Prescriptions: Albuterol Aerosols [Ventolin Aerosols] 2.5 mg INHALATION Q4H PRN #25 vial Albuterol Inhaler [Ventolin Hfa] 1 - 2 puff INHALATION Q4H PRN PRN #1 inhaler PRN Reason: Wheezing Referrals: Jethro Goel, [Primary Care Provider] - 1-2 Days if not improving
[2017-11-06 00:35] VITALS: PULSE 73; RESP 18
[2017-11-06] MEDS: Ipratropium/Albuterol Sulfate 3 ML AMPUL.NEB INHALATION (00:35)
[2017-11-06 00:38] VITALS: O2SAT 96
[2017-11-06] MEDS: Albuterol 2.5 MG/3 ML VIAL.NEB. INHALATION ×2 (00:38)
[2017-11-06 01:05] VITALS: PULSE 76; RESP 20; O2SAT 94
== END 2017-11-06 01:05 | disposition home or self-care (01) ==
LOC: ED 11-06 00:25
PROVIDERS: Emergency Provider Emergency Medicine; Family Provider Student in an Organized Health Care Education/Training Program; PCP Student in an Organized Health Care Education/Training Program
DX: J44.9 Chronic obstructive pulmonary disease, unspecified (principal); I10 Essential (primary) hypertension; E78.00 Pure hypercholesterolemia, unspecified; Z79.899 Other long term (current) drug therapy
CPT/HCPCS: 71046; 94640; 99283

== ENCOUNTER 2017-11-07 06:18 | Emergency (ER) | payer MEDICARE, SELFPAY ==
[2017-11-07 06:19] VITALS: BP 175/92; PULSE 86; RESP 18; TEMP 36.4; O2SAT 96; BMI 25.2
[2017-11-07] MEDS: Mag Hydrox/Al Hydrox/Simeth 30 ML UDC 15 ML PO (06:44)
[2017-11-07] MEDS: Pantoprazole Sodium 20 MG Tablet PO (06:44)
--- NOTE | 2017-11-07 06:55 | ED.VISSUMM ---
- ER Visit Summary Date of Service: 11/07/17 Chief Complaint: Acid reflux History of Present Illness: The patient is a [address] Goel. She reports that she has had acid reflux for the past 2-3 years. Is gotten worse over the past few weeks. States that she took Nexium for 2 weeks and stopped it 2 days ago. She reports that it helped a little bit. States that she feels as though she is having difficulty swallowing. However, she has been able to eat and drink without difficulty. States that she had endoscopy a long time ago. Physical Examination: Vitals: Stable. Afebrile. General: Well-nourished and well-developed. Head: Normocephalic atraumatic. Neck: Supple, no lymphadenopathy. No JVD. Nontender. Cardiovascular: Regular rate and rhythm. 2 out of 6 systolic murmur. Respiratory: No respiratory distress. Clear to auscultation bilaterally. Abdominal: Soft, nontender, nondistended, normal bowel sounds. No guarding, rebound, or peritoneal signs. Back: Nontender. Extremities: Nontender, no edema. Skin: Normal color, no rash. Neurologic: Alert and oriented ?3. Cranial nerves II through XII are intact. Normal strength and sensation. Psych: Normal affect. Emergency Department Course and Treatment: I discussed the patient with Dr. Valdes who asked that we get a barium swallow. There is not a radiologist in house at this time. I offered to order this and do that this prior to her leaving. However, she reports that she has things that she needs to do this morning and cannot wait an hour and a half for the radiologist to arrive. Treatment Plan: The patient is written for an outpatient barium swallow and instructed to follow-up with Dr. Valdes for further evaluation and treatment. She is also instructed to speak with Dr. Goel about this. She does understand that she may require referral to a wave guide assembler for endoscopy. Disposition: To home in improved and stable condition. Impression: 1. Dysphagia. This note was generated with [employer] software. It may contain incorrect words, spelling, and punctuation that were not noted in review of the chart prior to signing ED Disposition - Plan for ED Patient: Disposition: Home or Assisted Living Chief Complaint: General Illness Instructions: Understanding Dysphagia Prescriptions: Omeprazole [Prilosec] 20 mg PO DAILY #30 capsule Referrals: Jethro Goel DO [Primary Care Provider] - Carmina Valdes MD [STAFF PHYSICIAN] - 3-5 Days
[2017-11-07 07:06] VITALS: BP 158/82; PULSE 80; RESP 14; O2SAT 98
== END 2017-11-07 07:07 | disposition home or self-care (01) ==
PROVIDERS: Emergency Provider Emergency Medicine; Family Provider Student in an Organized Health Care Education/Training Program; PCP Student in an Organized Health Care Education/Training Program
DX: R13.10 Dysphagia, unspecified (principal); K21.9 Gastro-esophageal reflux disease without esophagitis; I10 Essential (primary) hypertension; J44.9 Chronic obstructive pulmonary disease, unspecified; Z87.891 Personal history of nicotine dependence; Z79.899 Other long term (current) drug therapy
CPT/HCPCS: 99283

== ENCOUNTER 2017-11-10 21:39 | Emergency (ER) | payer MEDICARE, SELFPAY ==
[2017-11-10 21:40] VITALS: BP 147/82; PULSE 80; RESP 17; TEMP 37.2; O2SAT 98; BMI 24.6
[2017-11-10] MEDS: Ipratropium/Albuterol Sulfate 3 ML AMPUL.NEB INHALATION (22:05)
[2017-11-10 22:09] VITALS: PULSE 69; RESP 16
[2017-11-10 22:27] VITALS: O2SAT 96
--- NOTE | 2017-11-10 23:04 | ED.DCSUM_ITS ---
- ER Visit Summary Date of Service: 11/10/17 Chief Complaint: Dyspnea History of Present Illness: The patient is a 82 F presents for evaluation for dyspnea over the past few months. She is seen multiple times in the ED for similar. Vitals have been stable every time. Seen by myself less than 3 weeks ago with URI symptoms. Patient history of COPD no home oxygen. states she has continued dyspnea. She has followed up with ENT states was given eardrops and nasal sprays. States symptoms are not helping. She is on Symbicort and now rescue inhaler. However states those does not help. She only thing that helps is the breathing treatment in the ED. Would last for a couple days. No PE risk factors. Also seen 3 days ago for dysphasia, barium studies was to be done as an outpatient along with having a follow with Dr. Valdes this coming Saturday. Remote tobacco history. States she quit in July. No chest pains. Physical Examination: General: Alert and oriented ?3, no acute distress HEENT: Normocephalic, atraumatic. Moist mucosa membranes. No posterior pharyngeal erythema. Neck: supple, nontender. Cardiovascular: Regular rate and rhythm, no murmurs Respiratory: Normal breath sounds, symmetric, no distress Abdomen: Soft, nontender, nondistended Extremities: Nontender, no edema, pulses intact ?4 Neuro: no focal neurological deficits. Test Results: [] Emergency Department Course and Treatment: Patient vitals stable, no acute distress. Discussed with patient she currently has medications for treatment with her Symbicort and her short acting. She has no current wheezing. Discussed workup for the patient with image studies and labs however she states she does not want these. States she just wants to aerosol treatments which does help her for a couple days. This was given. On reevaluation, states her symptoms are improved. Vitals remained stable. Discussed with patient to call her PCP for follow-up for possible nebulizer set up for home. She also keep her appoint with Dr. Valdes in the upcoming week. All questions were answered. Treatment Plan: [] Disposition: Discharge Impression: 1. Dyspnea 2. COPD This note was generated with [employer] software. It may contain incorrect words, spelling, and punctuation that were not noted in review of the chart prior to signing ED Disposition - Plan for ED Patient: Disposition: Home or Assisted Living Chief Complaint: Cough Diagnosis: Dyspnea, COPD (chronic obstructive pulmonary disease) Instructions: ED Dyspnea Shortness of Breath Referrals: Jethro Goel DO [Primary Care Provider] - 3-5 Days Additional Instructions: Follow-up with your PCP for discussion for nebulizer treatment and referrals as needed.
[2017-11-10 23:14] VITALS: PULSE 71; RESP 20; O2SAT 96
== END 2017-11-10 23:14 | disposition home or self-care (01) ==
PROVIDERS: Emergency Provider Emergency Medicine; Family Provider Student in an Organized Health Care Education/Training Program; PCP Student in an Organized Health Care Education/Training Program
DX: J44.9 Chronic obstructive pulmonary disease, unspecified (principal); Z87.891 Personal history of nicotine dependence; I10 Essential (primary) hypertension; E78.00 Pure hypercholesterolemia, unspecified; Z79.899 Other long term (current) drug therapy
CPT/HCPCS: 94640; 99282

== ENCOUNTER 2017-11-11 08:33 | Emergency (ER) | payer MEDICARE, SELFPAY ==
[2017-11-11 08:34] VITALS: BP 153/98; PULSE 95; RESP 18; TEMP 36.9; O2SAT 97; BMI 25.3
--- NOTE | 2017-11-11 09:00 | RAD_ITS ---
STUDY: X-RAY - ESOPHAGUS (BARIUM SWALLOW) WITH FLUOROSCOPY REASON FOR EXAM: Female, 82 years old. Dysphagia for solids. TECHNIQUE: 17 view(s) of the esophagus were obtained following swallowing of barium. FLUOROSCOPY TIME (if supplied): (1:55) minutes/seconds COMPARISON: None. FINDINGS: There is no demonstrated esophageal foreign body. Tertiary contractions of the mid and distal esophagus. There is a small hiatal hernia of the fundus of the stomach. Gastroesophageal reflux. The patient ingested a 12 mm tablet of barium. The tablet is trapped in the proximal esophagus. There is atherosclerotic tortuosity of the aortic arch and descending thoracic aorta. Normal visualized pulmonary parenchyma. Normal visualized osseous structures of the thorax. RAD/Esophagus Only IMPRESSION: Small sliding hiatal hernia with gastroesophageal reflux. Tertiary contractions of the mid and distal esophagus. The patient ingested a 12 mm tablet of barium. The tablet is trapped in the proximal esophagus. Electronically Signed: Kyle Stevens MD at 9:34 EDT Tel [phone], Service support ,
[2017-11-11] MEDS: Mag Hydrox/Al Hydrox/Simeth 30 ML UDC PO (09:39)
--- NOTE | 2017-11-11 09:57 | ED.VISSUMM ---
- ER Visit Summary Date of Service: 11/11/17 Chief Complaint: Difficulty swallowing History of Present Illness: The patient is a [address] Goel. She reports she has difficulty swallowing that began months ago. She denies denies any abdominal pain. No nausea, vomiting, or diarrhea. Patient was seen in the emergency department for this 4 days ago. She reports that she had relief from the Mylanta that she was given for a couple of days. She is taking Prilosec and does not seem to be helping. She reports that at times it feels as though something is caught in her throat and she has difficulty swallowing. She denies any specific difficulty swallowing liquids or solids. She states that she has an appointment to see Dr. Valdes regarding this in 4 days. However, she did not get the barium swallow that was ordered. Physical Examination: Vitals: Stable. Afebrile. General: Well-nourished and well-developed. Head: Normocephalic atraumatic. Neck: Supple, no lymphadenopathy. No JVD. Nontender. Cardiovascular: Regular rate and rhythm. No murmurs. Respiratory: No respiratory distress. Clear to auscultation bilaterally. Poor air movement. Abdominal: Soft, nontender, nondistended, normal bowel sounds. No guarding, rebound, or peritoneal signs. Back: Nontender. Extremities: Nontender, no edema. Skin: Normal color, no rash. Neurologic: Alert and oriented ?3. Cranial nerves II through XII are intact. Normal strength and sensation. Psych: Normal affect. Test Results: X-ray of the esophagus barium swallow shows a small sliding hiatal hernia with reflux. There are tertiary contractions of the mid and distal esophagus. The 12 mm tablet is trapped in the proximal esophagus. Emergency Department Course and Treatment: Patient reports that following the barium swallow that the sensation of a foreign body resolved when she drank her coffee. The patient was given a dose of Mylanta and Cardizem while here. Treatment Plan: The patient was discussed with Dr. Carranza who reviewed the films. He reports that it is not unusual to have the tablet get stuck and that it dissolves. He asked that she be placed on Cardizem to help with the spasm of her esophagus. She will will be instructed to follow-up with Bernadette talbot, zeio TRUJILLO tomorrow at 130. It is likely that she will require referral to see a telephone interviewer. The patient understands this and this was discussed. Disposition: To home in improved and stable condition. Impression: 1. Esophageal spasm. 2. Small hiatal hernia. 3. GERD. This note was generated with [employer] dictation software. It may contain incorrect words, spelling, and punctuation that were not noted in review of the chart prior to signing ED Disposition - Plan for ED Patient: Chief Complaint: Abd Pain Instructions: ED Spasm Esophageal Prescriptions: Diltiazem CD [Cardizem CD] 120 mg PO DAILY #30 capsule Referrals: Bernadette Recio PA-C [ALLIED HEALTH PROFESSIONAL] - 11/12/17 1:30 pm
[2017-11-11] MEDS: dilTIAZem CD 120 MG Capsule PO (10:08)
[2017-11-11 10:11] VITALS: BP 138/75; PULSE 67; RESP 14; O2SAT 95
--- NOTE | 2017-11-11 11:46 | CM.ED ---
Referral placed to [facility]. Adama, with [facility], confirms that they will reach out to the patient within the next few weeks.
== END 2017-11-11 10:12 | disposition home or self-care (01) ==
PROVIDERS: Emergency Provider Emergency Medicine; Family Provider Student in an Organized Health Care Education/Training Program; PCP Student in an Organized Health Care Education/Training Program
DX: K22.4 Dyskinesia of esophagus (principal); K44.9 Diaphragmatic hernia without obstruction or gangrene; K21.9 Gastro-esophageal reflux disease without esophagitis; J44.9 Chronic obstructive pulmonary disease, unspecified; Z87.891 Personal history of nicotine dependence; Z79.899 Other long term (current) drug therapy
CPT/HCPCS: 74220; 99283

== ENCOUNTER 2017-11-17 18:37 | Emergency (ER) | payer MEDICARE, SELFPAY ==
[2017-11-17] VITALS (7 sets, daily range): BP systolic 138; BP diastolic 74; PULSE 71–90; RESP 18–20; TEMP 37.1; O2SAT 95–98; BMI 25.3
--- NOTE | 2017-11-17 19:22 | EKG12_ITS ---
Test Reason : SOB Blood Pressure : / mmHG Vent. Rate : 062 BPM Atrial Rate : 062 BPM P-R Int : 178 ms QRS Dur : 084 ms QT Int : 406 ms P-R-T Axes : 044 -14 026 degrees QTc Int : 412 ms Sinus rhythm with Premature atrial complexes Otherwise normal ECG Confirmed by GENIE BARLOW, NATALIE ([id number]), editor magazine RAJESH MARTIN ([id number]) on 11/19/2017 3:20:26 PM Referred By: NAREN Confirmed By:NATALIE PRESCOTT MD
--- NOTE | 2017-11-17 19:23 | RAD_ITS ---
STUDY: X-RAY CHEST REASON FOR EXAM: Female, 82 years old. DYSPNEA/SOB. HX OF COPD. TECHNIQUE: Single AP portable view of the chest. COMPARISON: November 05, 2017 FINDINGS: Lungs are again hyperexpanded with calcified granulomas.. There is no demonstrated pleural abnormality. Normal size heart. Normal mediastinum and rasheed. Normal visualized pulmonary arteries. There is atherosclerotic calcification of the aortic arch with tortuosity. Normal visualized thoracic spine. Normal visualized ribs, clavicles, and shoulders. Again seen is a hiatal hernia. RAD/Chest 1 View (Portable) IMPRESSION: There is no significant interval change. Electronically Signed: Nelia Sousa MD at 19:41 EDT , Service support ,
[2017-11-17] MEDS: Ipratropium/Albuterol Sulfate 3 ML AMPUL.NEB INHALATION (19:36)
[2017-11-17] MEDS: Albuterol 2.5 MG/3 ML VIAL.NEB. INHALATION ×3 (19:36→19:44)
[2017-11-17 19:55] LABS: BUN 19 mg/dL (7-18); BUN/Creat Ratio 13.4 RATIO (10-20); Calcium,Total 8.9 mg/dL (8.5-10.1); Chloride 108 mmol/L (98-107); Creatinine, Serum 1.42 mg/dL (0.55-1.02); EST Glomerular Filtration Rate 38 mL/min (>60); Est Glom Filt Rate - Afr Amer 46 mL/min (>60); Glucose 108 mg/dL (74-106); Potassium 4.3 mmol/L (3.5-5.1); Sodium Level 142 mmol/L (136-145)
[2017-11-17 19:56] LABS: Anion Gap 8 (5-15)
[2017-11-17 19:58] LABS: Absolute Lymphocyte Count 1.57 X10^3/ul (0.83-4.51); Absolute Neutrophil Count 4.7 X10^3/uL (2.0-7.7); Basophil# 0.01 X10^3/uL; Basophil% 0.1 % (0-1); Eosinophil# 0.08 X10^3/uL; Eosinophils% 1.1 % (0-5); Hematocrit 26.4 % (37-47); Hemoglobin 7.9 g/dl (12.0-15.0); Lymphocyte # 1.57 X10^3/ul (4.0); Lymphocyte % 22.5 % (19-41); Mean Corp Hgb Conc 29.9 g/gl (32-36); Mean Corpuscular Hgb 24.5 pg (27.0-32.0); Mean Corpuscular Volume 81.7 fL (81-99); Mean Platelet Vol. 9.9 fl (6.2-12.0); Monocyte# 0.57 X10^3/uL; Monocyte% 8.2 % (0-10); Neutrophil # 4.73 X10^3/uL (2.7-7.7); Platelet Count 356 K/mm3 (150-450); RBC Distribution Width CV 17.4 % (11.6-14.6); RBC Distribution Width SD 52.2 fl (35.1-43.9); Red Blood Count 3.23 M/mm3 (4.2-5.4)
[2017-11-17 20:02] LABS: POSITIVE COUNT NO; POSITIVE DIFFERENTIAL NO; POSITIVE MORPHOLOGY NO
--- NOTE | 2017-11-17 20:05 | ED.DCSUM_ITS ---
- ER Visit Summary Date of Service: 11/17/17 Chief Complaint: Shortness of breath History of Present Illness: The patient is a 82 F presenting with shortness of breath. She states this has been ongoing for the past month. She states she ran out of her albuterol 1 week ago. She states that when she had albuterol that was helping. She finished a course of prednisone 2 days ago. She also complains of esophageal spasm and GERD. She has been seen in the ED for this complaint and has a scheduled follow-up with Dr. Ferrrao on Saturday. She was put on Cardizem for esophageal spasm. She states she intermittently feels like things are stuck in her throat. She is able to drink fluids and eat food without difficulty. She denies fever. Denies other complaints. Physical Examination: Vitals are stable. Patient is afebrile. Alert no acute distress. HEENT exam is unremarkable. Neck is supple. Lungs are diminished bilaterally. Heart is regular rate and rhythm. Abdomen is soft nontender nondistended. Extremities are unremarkable. Skin is warm and dry. No focal neurologic deficit. Remainder of exam is unremarkable. Emergency Department Course and Treatment: Patient is given albuterol and Atrovent aerosols. She was given Maalox. She had improvement of her symptoms. Chest x-ray shows no acute process. EKG is sinus rate of 62 with no acute changes. CBC shows a hemoglobin of 7.9. Previous 8.8. She has history of chronic anemia. She states her primary care physician is in the process of working this up. Her glucose is 108, BUN 19, creatinine 1.42. This is at her baseline. Troponin is negative. Stool is guaiac negative. Patient was able to ambulate in the ED with a pulse ox of 97% on room air. She is advised to follow-up with her PCP tomorrow and Dr. Ferraro on Saturday. She is given a prescription for albuterol. Advised to return to ED for worsening complaints. Disposition: Discharged home Impression: Shortness of breath, history of COPD, GERD This note was generated with [employer] dictation software. It may contain incorrect words, spelling, and punctuation that were not noted in review of the chart prior to signing ED Disposition - Plan for ED Patient: Chief Complaint: Shortness of Breath Referrals: Jethro Goel DO [Primary Care Provider] -
[2017-11-17] MEDS: Mag Hydrox/Al Hydrox/Simeth 30 ML UDC PO (21:27)
--- NOTE | 2017-11-17 21:58 | ED.DEP ---
ED Disposition - Plan for ED Patient: Chief Complaint: Shortness of Breath Instructions: ED GERD Prescriptions: Albuterol Aerosols [Ventolin Aerosols] 2.5 mg INHALATION Q4H PRN #25 vial Referrals: Jethro Goel DO [Primary Care Provider] -
== END 2017-11-17 22:19 | disposition home or self-care (01) ==
LOC: ED 19:24
PROVIDERS: Emergency Provider Emergency Medicine; Family Provider Student in an Organized Health Care Education/Training Program; PCP Student in an Organized Health Care Education/Training Program
DX: J44.9 Chronic obstructive pulmonary disease, unspecified (principal); K21.9 Gastro-esophageal reflux disease without esophagitis; K22.4 Dyskinesia of esophagus; D64.9 Anemia, unspecified; E78.00 Pure hypercholesterolemia, unspecified; I12.9 Hypertensive chronic kidney disease with stage 1 through stage 4 chronic kidney disease, or unspecified chronic kidney disease; N18.9 Chronic kidney disease, unspecified; Z87.891 Personal history of nicotine dependence; Z79.899 Other long term (current) drug therapy
CPT/HCPCS: 71045; 80048; 82274; 84484; 85025; 93005; 94640; 99285; A4216

== ENCOUNTER → 2017-11-19 08:56 | Outpatient (CLI) | payer MEDICARE, SELFPAY ==
[2017-11-19 09:02] VITALS: BP 152/75; PULSE 71; RESP 16; TEMP 36.4; O2SAT 97; BMI 25.3
[2017-11-19 09:49] VITALS: BP 142/66; PULSE 66; RESP 16; TEMP 37.1; O2SAT 98
[2017-11-19 10:45] VITALS: BP 126/69; PULSE 76; RESP 16; TEMP 36.9; O2SAT 98
[2017-11-19 11:36] VITALS: BP 136/75; PULSE 65; RESP 16; TEMP 37.1; O2SAT 98
[2017-11-19 12:36] VITALS: BP 134/73; PULSE 74; RESP 16; TEMP 36.6; O2SAT 100
[2017-11-19 14:00] VITALS: BP 137/68; PULSE 73; RESP 18; TEMP 37; O2SAT 96
== END ==
PROVIDERS: Family Provider Student in an Organized Health Care Education/Training Program; PCP Student in an Organized Health Care Education/Training Program; Visit Provider Student in an Organized Health Care Education/Training Program
DX: D50.9 Iron deficiency anemia, unspecified (principal)
CPT/HCPCS: 36415; 36430; 86850; 86900; 86920; 86922; J7040; P9016; A4216

== ENCOUNTER 2017-11-28 03:10 | Emergency (ER) | payer MEDICARE, SELFPAY ==
[2017-11-28 03:11] VITALS: BP 133/87; PULSE 71; RESP 18; TEMP 36.6; O2SAT 96; BMI 25.8
--- NOTE | 2017-11-28 03:14 | RAD_ITS ---
STUDY: X-RAY CHEST REASON FOR EXAM: Female, 82 years old. Chronic shortness of breath. TECHNIQUE: PA and lateral views of the chest. COMPARISON: November 17, 2017. FINDINGS: The lungs are hyperexpanded. There is mild eventration of the hemidiaphragms. There is no demonstrated pleural abnormality. There is borderline cardiomegaly. There are calcified mediastinal and hilar lymph nodes. Appears to be a small mediastinal masslike process likely representing hiatal hernia. This is unchanged since the previous radiograph. There is prominence of the pulmonary hilar arteries without peripheral pulmonary vascular congestion. There is atherosclerotic calcification of the aortic arch with tortuosity. There is demineralization of the osseous structures. There are degenerative changes of both shoulders. There is no demonstrated abnormality of the visualized soft tissue structures of the upper abdomen. RAD/Chest PA and Lateral IMPRESSION: No radiographic evidence of acute cardiopulmonary disease. Electronically Signed: Bina Paniagua MD at 3:40 EDT , Service support ,
[2017-11-28 03:38] VITALS: PULSE 58; RESP 18
[2017-11-28] MEDS: Albuterol 2.5 MG/3 ML VIAL.NEB. INHALATION (03:38)
--- NOTE | 2017-11-28 03:46 | ED.VISSUMM ---
- ER Visit Summary Date of Service: 11/28/17 Chief Complaint: Shortness of breath History of Present Illness: The patient is a 82 F who says she is short of breath for many months. She is here tonight because it is worse. She ran out of her albuterol. She has no puffers or liquid to go in her nebulizer machine. She denies sinus congestion. She has had a mild cough. No chest pain. She has been seen here many times for this Physical Examination: Vital signs reviewed. HEENT exam unremarkable. Heart is regular rate and rhythm without murmurs. Lungs are clear to auscultation. Abdomen is soft and nontender. Extremities reveal no edema. Skin exam normal. Neurologic exam normal. Test Results: X-ray unremarkable Emergency Department Course and Treatment: She was treated with albuterol. She feels much better Treatment Plan: She will go home with albuterol puffers and liquid for her nebulizer. She will follow up with her PCP Disposition: Discharge Impression: Shortness of breath This note was generated with [employer] dictation software. It may contain incorrect words, spelling, and punctuation that were not noted in review of the chart prior to signing ED Disposition - Plan for ED Patient: Chief Complaint: Shortness of Breath Referrals: Jethro Goel [Primary Care Provider] -
--- NOTE | 2017-11-28 03:48 | ED.DEP ---
ED Disposition - Plan for ED Patient: Disposition: Home or Assisted Living Chief Complaint: Shortness of Breath Instructions: ED COPD Flare Prescriptions: Albuterol Aerosols [Ventolin Aerosols] 2.5 mg INHALATION Q4H PRN #25 vial Albuterol Inhaler [Ventolin Hfa] 1 - 2 puff INHALATION Q4H PRN PRN #1 inhaler PRN Reason: Wheezing Referrals: Jethro Goel [Primary Care Provider] -
[2017-11-28 03:56] VITALS: BP 152/71; PULSE 70; RESP 19; O2SAT 96
--- NOTE | 2017-11-28 03:56 | ED.RN ---
DISCHARGE INSTRUCTIONS GIVEN TO AND REVIEWED WITH PATIENT, PATIENT DENIES QUESTIONS OR CONCERNS AND VOICES UNDERSTANDING OF DISCHARGE INSTRUCTIONS. PT AMBULATES OUT OF ROOM WITHOUT DIFFICULTY.
--- NOTE | 2017-11-28 11:03 | CCN.REFER ---
Multiple phone calls made to pt with no return call. Pt not enrolled into [facility] at this time URBANO Magallon
== END 2017-11-28 03:56 | disposition home or self-care (01) ==
PROVIDERS: Emergency Provider Emergency Medicine; Family Provider Student in an Organized Health Care Education/Training Program; PCP Student in an Organized Health Care Education/Training Program
DX: J44.9 Chronic obstructive pulmonary disease, unspecified (principal); K21.9 Gastro-esophageal reflux disease without esophagitis; Z79.899 Other long term (current) drug therapy
CPT/HCPCS: 71046; 94640; 99282

== ENCOUNTER 2017-12-05 08:46 | Emergency (ER) | payer MEDICARE, SELFPAY ==
[2017-12-05 08:47] VITALS: BP 171/91; PULSE 95; RESP 16; TEMP 36.8; O2SAT 97; BMI 25.4
[2017-12-05 09:39] LABS: Absolute Lymphocyte Count 0.98 X10^3/ul (0.83-4.51); Absolute Neutrophil Count 5.2 X10^3/uL (2.0-7.7); Basophil# 0.03 X10^3/uL; Basophil% 0.4 % (0-1); Eosinophil# 0.18 X10^3/uL; Eosinophils% 2.6 % (0-5); Hemoglobin 11.1 g/dl (12.0-15.0); Lymphocyte # 0.98 X10^3/ul (4.0); Lymphocyte % 14.3 % (19-41); Mean Corp Hgb Conc 30.8 g/gl (32-36); Mean Corpuscular Hgb 25.8 pg (27.0-32.0); Mean Corpuscular Volume 83.5 fL (81-99); Mean Platelet Vol. 9.8 fl (6.2-12.0); Monocyte# 0.47 X10^3/uL; Monocyte% 6.9 % (0-10); Neutrophil % 75.8 % (47-70); Platelet Count 296 K/mm3 (150-450); RBC Distribution Width SD 57.4 fl (35.1-43.9); Red Blood Count 4.31 M/mm3 (4.2-5.4); White Blood Count 6.9 K/mm3 (4.4-11.0)
[2017-12-05 09:40] LABS: POSITIVE COUNT NO; POSITIVE DIFFERENTIAL NO; POSITIVE MORPHOLOGY NO
[2017-12-05 09:44] LABS: International Normalized Ratio 0.9; Prothrombin Time (Protime)PT. 12.1 SECONDS (11.7-14.9)
[2017-12-05 09:47] LABS: Anion Gap 8 (5-15); BUN 17 mg/dL (7-18); BUN/Creat Ratio 11.6 RATIO (10-20); Calcium,Total 9.4 mg/dL (8.5-10.1); Chloride 107 mmol/L (98-107); Creatinine, Serum 1.46 mg/dL (0.55-1.02); EST Glomerular Filtration Rate 36 mL/min (>60); Est Glom Filt Rate - Afr Amer 44 mL/min (>60); Estimated Creatinine Clearance 28.89 ml/min; Glucose 111 mg/dL (74-106); Potassium 4.1 mmol/L (3.5-5.1); Sodium Level 142 mmol/L (136-145)
--- NOTE | 2017-12-05 09:59 | ED.VISSUMM ---
- ER Visit Summary Date of Service: 12/05/17 Chief Complaint: [] Weakness, concern for anemia History of Present Illness: The patient is a 82 F [] complaining of generalized malaise, concern for anemia. She reports that she had 2 pints of blood 2 weeks ago for an unknown cause of anemia. She reports she is currently being worked up. She reports she is currently on iron tablets. She reports her stool is black. She denies any nausea or vomiting. She denies any bright red blood per rectum. She denies any abdominal pain. She appears anxious. History is rather difficult to obtain from her. Physical Examination: [] Afebrile, vital signs stable. Elderly female no acute distress. Conversational. Cardiovascular exam is regular rate and rhythm. Lungs are clear to auscultation. Abdomen is soft and nontender. Digital rectal exam with female in class special education teacher reveals dark stool which was Hemoccult negative. No internal masses or significant hemorrhoids. No lower extremity edema. Test Results: [] CBC reveals a hemoglobin of 11.1 hematocrit 36.0. Electrolytes are normal. Again Hemoccult was negative. Emergency Department Course and Treatment: [] Patient was evaluated and no underlying cause was found for her anemia. She does appear anxious. She was encouraged to follow-up with her physicians were currently working up her underlying cause of anemia. Treatment Plan: [] Follow-up with PCP. Disposition: [] Discharge, stable. Impression: [] Anemia Weakness, unknown etiology This note was generated with [employer] dictation software. It may contain incorrect words, spelling, and punctuation that were not noted in review of the chart prior to signing ED Disposition - Plan for ED Patient: Chief Complaint: GI Bleed Referrals: Jethro Goel [Primary Care Provider] -
--- NOTE | 2017-12-05 10:04 | ED.DCSUM_ITS ---
- ER Visit Summary Date of Service: 12/05/17 Chief Complaint: [] Weakness, concern for anemia History of Present Illness: The patient is a 82 F [] complaining of generalized malaise, concern for anemia. She reports that she had 2 pints of blood 2 weeks ago for an unknown cause of anemia. She reports she is currently being worked up. She reports she is currently on iron tablets. She reports her stool is black. She denies any nausea or vomiting. She denies any bright red blood per rectum. She denies any abdominal pain. She appears anxious. History is rather difficult to obtain from her. Physical Examination: [] Afebrile, vital signs stable. Elderly female no acute distress. Conversational. Cardiovascular exam is regular rate and rhythm. Lungs are clear to auscultation. Abdomen is soft and nontender. Digital rectal exam with female barge pilot reveals dark stool which was Hemoccult negative. No internal masses or significant hemorrhoids. No lower extremity edema. Test Results: [] CBC reveals a hemoglobin of 11.1 hematocrit 36.0. Electrolytes are normal. Again Hemoccult was negative. Emergency Department Course and Treatment: [] Patient was evaluated and no underlying cause was found for her anemia. She does appear anxious. She was encouraged to follow-up with her physicians were currently working up her underlying cause of anemia. Treatment Plan: [] Follow-up with PCP. Disposition: [] Discharge, stable. Impression: [] Anemia Weakness, unknown etiology This note was generated with [employer] dictation software. It may contain incorrect words, spelling, and punctuation that were not noted in review of the chart prior to signing ED Disposition - Plan for ED Patient: Chief Complaint: GI Bleed Referrals: Jethro Goel [Primary Care Provider] -
--- NOTE | 2017-12-05 10:04 | ED.DEP ---
ED Disposition - Plan for ED Patient: Disposition: Home or Assisted Living Chief Complaint: GI Bleed Instructions: Anemia Referrals: Jethro Goel [Primary Care Provider] -
[2017-12-05 10:18] VITALS: BP 127/59; PULSE 66; RESP 15; O2SAT 98
== END 2017-12-05 10:19 | disposition home or self-care (01) ==
PROVIDERS: Emergency Provider Emergency Medicine; Family Provider Student in an Organized Health Care Education/Training Program; PCP Student in an Organized Health Care Education/Training Program
DX: D64.9 Anemia, unspecified (principal); R53.1 Weakness; R19.5 Other fecal abnormalities; J44.9 Chronic obstructive pulmonary disease, unspecified; K21.9 Gastro-esophageal reflux disease without esophagitis; Z86.79 Personal history of other diseases of the circulatory system; E78.00 Pure hypercholesterolemia, unspecified; K44.9 Diaphragmatic hernia without obstruction or gangrene; Z79.899 Other long term (current) drug therapy
CPT/HCPCS: 80048; 82274; 85025; 85610; 86850; 86900; 99283; A4216

== ENCOUNTER 2017-12-09 11:54 | Day surgery (SDC) | payer MEDICARE, SELFPAY ==
--- NOTE | 2017-12-09 | IMM_PTH ---
PATIENT: JAZMINE GONZALEZ LOC: EN U#:[id number] AGE/SX: 82/F ROOM: RE12/09/[address]: Dr. Riccardo Ferraro MD : 1935 BED: DIS: 12/09/2017 SPEC #: [id number] RECD: 12/10/17 14:33 STATUS: ROMEL REZaki #: [id number] XIOMARA: 12/09/17 00:[address]: Riccardo Ferraro DEPT: IMMUNOHISTOCHEMISTRY RECD BY: Cydney Roberson ENTERED: 12/10/17 14:33 SP TYPE: IMMUNO OTHR DR: DO Jethro Sadler Tissues: A - Stomach, NOS Procedures: H Pylori (initial) PHYSICIAN & INSTITUTION [place] [id number] SPECIMEN INFORMATION: Tissue Source: A - Antrum Clinical Info: GERD Specimen Number: [id number] CPT code: 86291 METHODOLOGY: Deparaffinized sections of prefer/formalin-fixed tissue or PAP/DQ stained slides are incubated with monoclonal/polyclonal antibodies/oligonucleotide probes. Localization is made via biotin free immunoperoxidase method. Appropriate controls are performed and reacted as expected. Results on target cell population are indicated in the following table: RESULTS: ANTIBODY / CLONE RESULT Block A H Pylori (polyclonal) positive These tests were developed and their performance characteristics determined by [facility]. They may not have been cleared or approved by the U.S. Food and Drug Administration. The FDA has determined that such clearance or approval is not necessary. INTERPRETATION: A. Antrum, biopsy: Positive for Helicobacter pylori organisms. AM:jose f 12/11/17
[2017-12-09 12:20] VITALS: BP 174/95; PULSE 85; RESP 16; TEMP 36.7; O2SAT 100; BMI 24.8
--- NOTE | 2017-12-09 13:35 | EGD_PTH ---
PATIENT: JAZMINE GONZALEZ LOC: EN U#:[id number] AGE/SX: 82/F ROOM: RE12/09/[address]: Dr. Riccardo Ferraro MD : 1935 BED: DIS: 12/09/2017 SPEC #: [id number] RECD: 12/09/17 14:13 STATUS: ROMEL ALLY #: [id number] XIOMARA: 12/09/17 13:[address]: Riccardo Ferraro DEPT: SURGICAL PATHOLOGY RECD BY: Matt Pelletier ENTERED: 12/09/17 15:18 SP TYPE: EGD BIOPSY CHRIS DR: DO Jethro Sadler Tissues: A - Gastric mucous membrane B - Gastric mucous membrane C - Esophagus, NOS Procedures: Surgery Specimen Level IV HEADER OPERATION: EGD with biopsy PRE-OP DIAGNOSIS: GERD TISSUE SUBMITTED: A ? Antrum for H. pylori and path, B ? GE junction biopsy, C ? Mid esophagus biopsy MICROSCOPIC DIAGNOSIS A. Gastric antrum, biopsy: Chronic active gastritis. B. Gastroesophageal junction, biopsy: Fragment of benign squamous mucosa. C. Mid esophagus, biopsy: Fragment of benign squamous mucosa. AM:jose f 12/10/17 COMMENT A. The results of immunohistochemistry for Helicobacter pylori will be reported separately ([id number]). B. Glandular epithelium is not represented in the biopsy. Clinical correlation is suggested. MICROSCOPIC DESCRIPTION Slides are reviewed. GROSS DESCRIPTION A - Received in fixative is one container labeled with the patient's name and designated antrum biopsy for H. pylori and path. The specimen consists of one irregular fragment of light aleman soft tissue that measures 0.6 x 0.2 x 0.1 cm. The specimen is totally submitted in one cassette. B - Received in fixative is one container labeled with the patient's name and designated GE junction biopsy. The specimen consists of one irregular fragment of light aleman soft tissue that measures 0.5 x 0.3 x 0.1 cm. The specimen is totally submitted in one cassette. C - Received in fixative is one container labeled with the patient's name and designated mid esophagus biopsy. The specimen consists of one irregular fragment of light aleman soft tissue that measures 0.7 x 0.2 x 0.1 cm. The specimen is totally submitted in one cassette. / JONNA:jose f 12/09/17 TC:2 CPT: 95616 x3
[2017-12-09 13:45] VITALS: BP 122/78; BP 174/95; PULSE 70; RESP 17; TEMP 36.4; O2SAT 94
[2017-12-09 13:50] VITALS: BP 131/76; BP 174/95; PULSE 66; RESP 18; O2SAT 97
[2017-12-09 13:55] VITALS: BP 157/68; BP 174/95; PULSE 63; RESP 16; O2SAT 95
[2017-12-09 14:01] VITALS: BP 156/90; BP 174/95; PULSE 57; RESP 16; TEMP 36.3; O2SAT 99
[2017-12-09 14:15] VITALS: BP 174/95
--- NOTE | 2017-12-09 15:15 | PCM.OPRPT ---
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 pylori positive. Surgery/Procedure Performed:: EGD with Biopsy leather lacer: None Type of Anesthesia:: MAC Anesthesiologist: Bernard Deleon - ASA3 Specimen's removed: gastric Bx Description of Procedure: The patient was brought to the endoscopy suite. Sign in was performed verifying patient, site, planned procedure, critical nursing information, the patient was monitored with cardiac, pulse oximetric, and blood pressure monitoring devices. Monitored anesthetic care was provided for sedation. Following IV sedation and after the oropharynx was sprayed with Cetacaine spray, a video gastroscope was inserted in the oropharynx and advanced down the esophagus without difficulty. The scope was advanced through the stomach, through the pylorus through the duodenum to the proximal jejunum. the jejunum appeared unremarkable. The second and third portions of the duodenum unremarkable. There was a small nonbleeding AVM in the deep bulb. There was gastritis, more so in the body of the stomach. The knee antral region area. Biopsies were obtained for H. pylori and pathology. The H. pylori biopsy on the rapid test was positive area. The patient had a small to moderate type I hiatal hernia, without marginal ulceration. The distal esophagus appeared unremarkable. A biopsy was obtained at this location. The patient is a history of dysphasia, a mid esophageal biopsy was performed. The midesophagus appeared unremarkable. The patient tolerated the procedure well and was brought to recovery in stable condition
--- NOTE | 2017-12-09 15:18 | OP.PCM_ITS ---
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 pylori positive. Surgery/Procedure Performed:: EGD with Biopsy keno dealer: None Type of Anesthesia:: MAC Anesthesiologist: Bernard Deleon - ASA3 Specimen's removed: gastric Bx Description of Procedure: The patient was brought to the endoscopy suite. Sign in was performed verifying patient, site, planned procedure, critical nursing information, the patient was monitored with cardiac, pulse oximetric, and blood pressure monitoring devices. Monitored anesthetic care was provided for sedation. Following IV sedation and after the oropharynx was sprayed with Cetacaine spray , a video gastroscope was inserted in the oropharynx and advanced down the esophagus without difficulty. The scope was advanced through the stomach, through the pylorus through the duodenum to the proximal jejunum. the jejunum appeared unremarkable. The second and third portions of the duodenum unremarkable. There was a small nonbleeding AVM in the deep bulb. There was gastritis, more so in the body of the stomach. The knee antral region area. Biopsies were obtained for H. pylori and pathology. The H. pylori biopsy on the rapid test was positive area. The patient had a small to moderate type I hiatal hernia, without marginal ulceration. The distal esophagus appeared unremarkable. A biopsy was obtained at this location. The patient is a history of dysphasia, a mid esophageal biopsy was performed. The midesophagus appeared unremarkable. The patient tolerated the procedure well and was brought to recovery in stable condition
== END 2017-12-09 14:26 | disposition home or self-care (01) ==
LOC: EN 11:57 → AC 11:58
PROVIDERS: Family Provider Student in an Organized Health Care Education/Training Program; PCP Student in an Organized Health Care Education/Training Program; Visit Provider Surgery
PROC: 0DJ08ZZ Inspection of Upper Intestinal Tract, Via Natural or Artificial Opening Endoscopic (ICD-10-PCS; CPT 43235; principal; 2017-12-09 13:10)
DX: K29.50 Unspecified chronic gastritis without bleeding (principal); K21.9 Gastro-esophageal reflux disease without esophagitis; K44.9 Diaphragmatic hernia without obstruction or gangrene; B96.81 Helicobacter pylori [H. pylori] as the cause of diseases classified elsewhere; D64.9 Anemia, unspecified; I10 Essential (primary) hypertension; E78.00 Pure hypercholesterolemia, unspecified; Z86.73 Personal history of transient ischemic attack (TIA), and cerebral infarction without residual deficits; Z79.899 Other long term (current) drug therapy; Z87.891 Personal history of nicotine dependence
CPT/HCPCS: 43239; 88305; 88342; J7120

== ENCOUNTER 2017-12-28 06:18 | Emergency (ER) | payer MEDICARE, SELFPAY ==
[2017-12-28 06:19] VITALS: BP 162/92; PULSE 94; RESP 22; TEMP 37.1; O2SAT 95; BMI 25.0
[2017-12-28 06:22] VITALS: O2SAT 94
[2017-12-28] MEDS: Ipratropium/Albuterol Sulfate 3 ML AMPUL.NEB INHALATION (06:45)
[2017-12-28] MEDS: Albuterol 2.5 MG/3 ML VIAL.NEB. INHALATION ×2 (06:45)
[2017-12-28 06:50] VITALS: PULSE 64; RESP 16
--- NOTE | 2017-12-28 07:15 | ED.VISSUMM ---
- ER Visit Summary Date of Service: 12/28/17 Chief Complaint: [Shortness of breath] History of Present Illness: The patient is a 82 F [who presents the emergency department with shortness of breath. It has been ongoing for months. She uses albuterol nebulizer at home but she ran out of it last night and she was short of breath when she woke up this morning. This is not unusual for her. She does not think that anything else is going on with her. She has been on steroids but just finished them 2 days ago. She has not had fever or chills. She denies any chest pain. She states she just ran out of her albuterol and needs some more. She has a prescription at the pharmacy but she cannot get to it until this afternoon.] Physical Examination: [] Afebrile vital signs within acceptable limits except for a blood pressure 162/92 WN WD NAD PERRL EOMI MMM NECK supple and nontender, no masses RRR no murmur rub or gallop, no peripheral edema, symmetric radial pulses Slightly diminished in all lung anna no respiratory distress ABDOMEN is soft and nontender, normal bowel sounds, no distension, no rebound or guarding SKIN is warm and dry no rashes Alert and Oriented x3, CN II-XII in tact, no motor or sensory deficits, gait normal No lymphadenopathy Test Results: [] Emergency Department Course and Treatment: [She was given a DuoNeb and albuterol's in the emergency department. She did significantly improve. Pulse ox was 100%. While discussing discharge with her she said that she was transfused 2 units of blood 2 weeks ago and has been on iron. She is concerned about her blood counts. I did order baseline labs to evaluate for this. If she has a hemoglobin greater than 8 and no other significant abnormality she will be discharged home. She was given precaution for which to return.] Treatment Plan: [] Disposition: [Discharge] Impression: [COPD] This note was generated with [employer] dictation software. It may contain incorrect words, spelling, and punctuation that were not noted in review of the chart prior to signing ED Disposition - Plan for ED Patient: Chief Complaint: Shortness of Breath Referrals: Jethro Goel [Primary Care Provider] -
--- NOTE | 2017-12-28 07:18 | ED.DEP ---
ED Disposition - Plan for ED Patient: Chief Complaint: Shortness of Breath Instructions: What is COPD? Referrals: Jethro Goel [Primary Care Provider] - 2 Days
[2017-12-28 07:51] LABS: Absolute Neutrophil Count 5.1 X10^3/uL (2.0-7.7); Basophil# 0.04 X10^3/uL; Basophil% 0.6 % (0-1); Eosinophil# 0.11 X10^3/uL; Eosinophils% 1.6 % (0-5); Hematocrit 35.8 % (37-47); Hemoglobin 11.5 g/dl (12.0-15.0); Lymphocyte % 17.4 % (19-41); Mean Corp Hgb Conc 32.1 g/gl (32-36); Mean Corpuscular Hgb 28.3 pg (27.0-32.0); Mean Corpuscular Volume 88.2 fL (81-99); Mean Platelet Vol. 10.1 fl (6.2-12.0); Monocyte# 0.38 X10^3/uL; Monocyte% 5.5 % (0-10); Neutrophil # 5.14 X10^3/uL (2.7-7.7); Neutrophil % 74.8 % (47-70); Platelet Count 198 K/mm3 (150-450); RBC Distribution Width CV 23.3 % (11.6-14.6); RBC Distribution Width SD 72.7 fl (35.1-43.9); Red Blood Count 4.06 M/mm3 (4.2-5.4); White Blood Count 6.9 K/mm3 (4.4-11.0)
[2017-12-28 07:55] LABS: Differential Indicated SCAN CRITERIA MET; POSITIVE COUNT NO; POSITIVE DIFFERENTIAL NO; POSITIVE MORPHOLOGY YES
[2017-12-28 07:56] LABS: Anion Gap 6 (5-15); BUN 15 mg/dL (7-18); BUN/Creat Ratio 10.7 RATIO (10-20); Calcium,Total 9.4 mg/dL (8.5-10.1); Chloride 109 mmol/L (98-107); EST Glomerular Filtration Rate 38 mL/min (>60); Est Glom Filt Rate - Afr Amer 46 mL/min (>60); Estimated Creatinine Clearance 30.13 ml/min; Glucose 128 mg/dL (74-106); Potassium 3.5 mmol/L (3.5-5.1); Sodium Level 142 mmol/L (136-145)
[2017-12-28 08:17] LABS: Anisocytosis RARE; Hypochromasia RARE
[2017-12-28 08:24] VITALS: BP 158/94; PULSE 82; RESP 16; O2SAT 93
== END 2017-12-28 08:25 | disposition home or self-care (01) ==
LOC: ED 06:56
PROVIDERS: Emergency Provider Emergency Medicine; Family Provider Student in an Organized Health Care Education/Training Program; PCP Student in an Organized Health Care Education/Training Program
DX: J44.9 Chronic obstructive pulmonary disease, unspecified (principal); J98.01 Acute bronchospasm; I10 Essential (primary) hypertension; K21.9 Gastro-esophageal reflux disease without esophagitis; Z87.891 Personal history of nicotine dependence
CPT/HCPCS: 80048; 85025; 94640; 99282

== ENCOUNTER 2018-01-04 04:29 | Emergency (ER) | payer MEDICARE, SELFPAY ==
[2018-01-04 04:30] VITALS: BP 161/88; PULSE 85; RESP 18; TEMP 36.8; O2SAT 95; BMI 25.2
[2018-01-04 05:04] VITALS: PULSE 55; RESP 12
[2018-01-04] MEDS: Ipratropium/Albuterol Sulfate 3 ML AMPUL.NEB INHALATION (05:04)
--- NOTE | 2018-01-04 05:30 | RAD_ITS ---
STUDY: X-RAY CHEST REASON FOR EXAM: Female, 82 years old. Shortness of breath TECHNIQUE: 2 views COMPARISON: November 28, 2017 FINDINGS: There continues to be a background of COPD demonstrated by flattening of the hemidiaphragms and hyperinflation of lungs. There calcified lymph nodes in both hilar region and increased linear densities in the right lung base most likely from atelectatic changes Normal visualized thoracic spine. Normal visualized ribs, clavicles, and shoulders. There is no demonstrated abnormality of the visualized soft tissue structures of the upper abdomen. RAD/Chest PA and Lateral IMPRESSION: CBD. Platelike atelectatic changes in the right lung base. Electronically Signed: Derek Copeland, at 5:57 EDT Tel , Service support ,
--- NOTE | 2018-01-04 06:19 | ED.VIS.GEN ---
History of Present Illness Chief Complaint: Shortness of Breath Informant: Patient Onset: Days - 1- Context: Gradual Onset Timing: Intermittent Quality: wheezing copd Location: chest/lungs Current Severity: Mild Maximum Severity: Moderate Worsened by: exertion, coughing Relieved by: albuterol but her MDI doesn't seem to be helping much Narrative: Patient was seen here less than 1 week ago for her COPD, she thinks she is on prednisone currently but she does not know. She is a relatively poor historian. She states she came in this morning because she cannot breathe although she walked here to the ER from her house, and is conversive as she walks back and forth from the bed to her bag to try to get things to show me. She denies any chest discomfort, fevers, new leg swelling, or other new symptoms. She does have sputum production that is not new. Prior similar symptoms: Yes - Past Medical History (1) Bronchiectasis Status: Chronic (2) Anxiety Status: Chronic (3) Chronic renal failure, stage 3 (moderate) Status: Chronic (4) GERD (gastroesophageal reflux disease) Status: Chronic (5) HLD (hyperlipidemia) Status: Chronic (6) HTN (hypertension) Status: Chronic (7) Tobacco abuse Status: Chronic (8) Urinary, incontinence, stress female Status: Chronic (9) Anemia Status: Chronic Past Medical History - Allergies and Home Meds Allergies/Adverse Reactions: Allergies No Known Allergies Allergy (Verified 01/04/18 04:32) Home Medications: Home Medications Medication Instructions Recorded Pravastatin [Pravachol] 20 mg PO QHS 07/03/13 Albuterol Inhaler [Ventolin Hfa] 1 - 2 puff INHALATION Q4H PRN PRN 11/28/17 #1 inhaler Ferrous Sulfate 325 mg PO DAILY@0800 12/06/17 Pantoprazole Sodium [Protonix] 20 mg PO DAILY 12/06/17 Doxycycline Hyclate 100 mg PO BID #14 cap 01/04/18 Primary Care Physician: Jethro Goel [Primary Care Provider] - Surgical History: noncontributory, - - Surgery for stress incontinence including a sling procedure Lives: Alone Smoking Status: Former smoker Drugs: None - Family History Paternal Family History: Reports: - - prostate CA Maternal Family History: Reports: - - breast CA Review of Systems All systems negative except as indicated Respiratory: Reports: Dyspnea, Cough, Sputum, Dyspnea on exertion. Denies: Orthopnea Physical Exam Vital Signs/Narrative: Vital Signs Temp Pulse Resp BP Pulse Ox 01/04/18 05:04 55 L 12 01/04/18 04:30 98.3 F 85 18 161/88 H 95 General: Well nourished, Well developed - well-appearing, conversational Head: Normocephalic, Atraumatic Eyes: Perrl, EOMI ENT: Moist mucous membranes, No rhinorrhea Neck: Supple, Nontender, No lymphadenopathy, No JVD Cardiovascular: Regular rate, Regular rhythm, No murmurs Respiratory: No distress, CTA bilaterally, Chest nontender, Diminished - throughout Abdomen: Soft, Nontender, Nondistended, Normal bowel sounds Back: Nontender, Normal Inspection Extremities: Nontender, No edema Skin: Normal color, No rash Neurological: Alert, Oriented x3, Cranial nerves II-XII grossly intact, Normal Strength, Normal Sensation, Normal Gait Psychological: - - anxious Diagnostic/Tx/Re-eval Clinical Impression(s) from Imaging Studies Chest X-Ray 01/04/18 05:30 IMPRESSION: CBD. Platelike atelectatic changes in the right lung base. Electronically Signed: Derek Copeland, at 5:57 EDT Tel , Service support , - Medical Decision Making After doing nebulizer treatment, she feels much better. We ambulated her around, she feels like she does not need another breathing treatment. Her pulse ox stayed at 90-93 on room air with exertion. Her chest x-ray shows no signs of acute pneumonia. She just had blood work done that was unremarkable along with a hemoglobin of 11.5, I do not think that needs to be repeated today. I reassured her about that as she was concerned. She has a documented history of bronchiectasis, unknown if she also has emphysema. She does not know if she is currently on an antibiotic and I do not see one that was recently prescribed to her through our prescription video game script writer. I will place her on a course of doxycycline. Encouraged to follow-up with her own doctor after the weekend. ED Disposition - Plan for ED Patient: Disposition: Home or Assisted Living Chief Complaint: Shortness of Breath Diagnosis: Bronchiectasis Instructions: ED COPD Flare Prescriptions: Doxycycline Hyclate 100 mg PO BID #14 cap Referrals: Jethro Goel [Primary Care Provider] - 3-5 Days
--- NOTE | 2018-01-04 06:26 | ED.DCSUM_ITS ---
History of Present Illness Chief Complaint: Shortness of Breath Informant: Patient Onset: Days - 1- Context: Gradual Onset Timing: Intermittent Quality: wheezing copd Location: chest/lungs Current Severity: Mild Maximum Severity: Moderate Worsened by: exertion, coughing Relieved by: albuterol but her MDI doesn't seem to be helping much Narrative: Patient was seen here less than 1 week ago for her COPD, she thinks she is on prednisone currently but she does not know. She is a relatively poor historian. She states she came in this morning because she cannot breathe although she walked here to the ER from her house, and is conversive as she walks back and forth from the bed to her bag to try to get things to show me. She denies any chest discomfort, fevers, new leg swelling, or other new symptoms. She does have sputum production that is not new. Prior similar symptoms: Yes - Past Medical History (1) Bronchiectasis Status: Chronic (2) Anxiety Status: Chronic (3) Chronic renal failure, stage 3 (moderate) Status: Chronic (4) GERD (gastroesophageal reflux disease) Status: Chronic (5) HLD (hyperlipidemia) Status: Chronic (6) HTN (hypertension) Status: Chronic (7) Tobacco abuse Status: Chronic (8) Urinary, incontinence, stress female Status: Chronic (9) Anemia Status: Chronic Past Medical History - Allergies and Home Meds Allergies/Adverse Reactions: Allergies No Known Allergies Allergy (Verified 01/04/18 04:32) Home Medications: Home Medications Medication Instructions Recorded Pravastatin [Pravachol] 20 mg PO QHS 07/03/13 Albuterol Inhaler [Ventolin Hfa] 1 - 2 puff INHALATION Q4H PRN PRN 11/28/17 #1 inhaler Ferrous Sulfate 325 mg PO DAILY@0800 12/06/17 Pantoprazole Sodium [Protonix] 20 mg PO DAILY 12/06/17 Doxycycline Hyclate 100 mg PO BID #14 cap 01/04/18 Primary Care Physician: Jethro Goel [Primary Care Provider] - Surgical History: noncontributory, - - Surgery for stress incontinence including a sling procedure Lives: Alone Smoking Status: Former smoker Drugs: None - Family History Paternal Family History: Reports: - - prostate CA Maternal Family History: Reports: - - breast CA Review of Systems All systems negative except as indicated Respiratory: Reports: Dyspnea, Cough, Sputum, Dyspnea on exertion. Denies: Orthopnea Physical Exam Vital Signs/Narrative: Vital Signs Temp Pulse Resp BP Pulse Ox 01/04/18 05:04 55 L 12 01/04/18 04:30 98.3 F 85 18 161/88 H 95 General: Well nourished, Well developed - well-appearing, conversational Head: Normocephalic, Atraumatic Eyes: Perrl, EOMI ENT: Moist mucous membranes, No rhinorrhea Neck: Supple, Nontender, No lymphadenopathy, No JVD Cardiovascular: Regular rate, Regular rhythm, No murmurs Respiratory: No distress, CTA bilaterally, Chest nontender, Diminished - throughout Abdomen: Soft, Nontender, Nondistended, Normal bowel sounds Back: Nontender, Normal Inspection Extremities: Nontender, No edema Skin: Normal color, No rash Neurological: Alert, Oriented x3, Cranial nerves II-XII grossly intact, Normal Strength, Normal Sensation, Normal Gait Psychological: - - anxious Diagnostic/Tx/Re-eval Clinical Impression(s) from Imaging Studies Chest X-Ray 01/04/18 05:30 IMPRESSION: CBD. Platelike atelectatic changes in the right lung base. Electronically Signed: Derek Copeland, at 5:57 EDT Tel , Service support , - Medical Decision Making After doing nebulizer treatment, she feels much better. We ambulated her around , she feels like she does not need another breathing treatment. Her pulse ox stayed at 90-93 on room air with exertion. Her chest x-ray shows no signs of acute pneumonia. She just had blood work done that was unremarkable along with a hemoglobin of 11.5, I do not think that needs to be repeated today. I reassured her about that as she was concerned. She has a documented history of bronchiectasis, unknown if she also has emphysema. She does not know if she is currently on an antibiotic and I do not see one that was recently prescribed to her through our prescription sheet writer. I will place her on a course of doxycycline. Encouraged to follow-up with her own doctor after the weekend. ED Disposition - Plan for ED Patient: Disposition: Home or Assisted Living Chief Complaint: Shortness of Breath Diagnosis: Bronchiectasis Instructions: ED COPD Flare Prescriptions: Doxycycline Hyclate 100 mg PO BID #14 cap Referrals: Jethro Goel [Primary Care Provider] - 3-5 Days
[2018-01-04 06:36] VITALS: PULSE 75; RESP 20; O2SAT 95
[2018-01-04 06:37] VITALS: BP 149/85; PULSE 77; RESP 20; O2SAT 95
--- NOTE | 2018-01-04 06:37 | NURSING ---
pt walked with pulse ox and stayed at93-95%. pt felt that she did not need another breathing tx
== END 2018-01-04 07:09 | disposition home or self-care (01) ==
PROVIDERS: Emergency Provider Emergency Medicine; Family Provider Student in an Organized Health Care Education/Training Program; PCP Student in an Organized Health Care Education/Training Program
DX: J47.9 Bronchiectasis, uncomplicated (principal); F41.9 Anxiety disorder, unspecified; I12.9 Hypertensive chronic kidney disease with stage 1 through stage 4 chronic kidney disease, or unspecified chronic kidney disease; N18.3 Chronic kidney disease, stage 3 (moderate); D63.1 Anemia in chronic kidney disease; E78.5 Hyperlipidemia, unspecified; K21.9 Gastro-esophageal reflux disease without esophagitis; N39.3 Stress incontinence (female) (male); Z87.891 Personal history of nicotine dependence; Z79.899 Other long term (current) drug therapy
CPT/HCPCS: 71046; 94640; 99282; A4216

== ENCOUNTER 2018-01-09 01:59 | Emergency (ER) | payer MEDICARE, SELFPAY ==
[2018-01-09 02:00] VITALS: BP 172/94; PULSE 75; RESP 16; TEMP 36.4; O2SAT 94; BMI 24.5
[2018-01-09 02:06] VITALS: O2SAT 94
--- NOTE | 2018-01-09 02:19 | ED.VISSUMM ---
- ER Visit Summary Date of Service: 01/09/18 Chief Complaint: Shortness of breath History of Present Illness: The patient is a [address] Goel. She reports that she does not see a main entree cook and cashier. States that she has chronic shortness of breath that worsened yesterday at noon. She ran out of solution for her nebulizer at noon yesterday as well. States that she was not able to walk to the pharmacy to get her refill. She reports that her shortness of breath is mild currently and at worst. It is worsened by nothing including exertion. Is relieved by albuterol. She has a chronic cough that is unchanged. No fever or chills. No chest pain. Physical Examination: Vitals: Stable. Afebrile. General: Well-nourished and well-developed. Head: Normocephalic atraumatic. Neck: Supple, no lymphadenopathy. No JVD. Nontender. Cardiovascular: Regular rate and rhythm. No murmurs. Respiratory: No respiratory distress. Clear to auscultation bilaterally. Poor air movement. Abdominal: Soft, nontender, nondistended, normal bowel sounds. No guarding, rebound, or peritoneal signs. Back: Nontender. Extremities: Nontender, no edema. Skin: Normal color, no rash. Neurologic: Alert and oriented ?3. Cranial nerves II through XII are intact. Normal strength and sensation. Psych: Normal affect. Emergency Department Course and Treatment: Patient was given albuterol and Atrovent aerosol. On repeat exam her air movement is much improved. She reports that she is at her baseline. Treatment Plan: Patient will be discharged with 2 A of albuterol to use overnight until the pharmacies are open. Instructed to get her albuterol for her nebulizer field tomorrow. Follow-up Dr. Goel in 1-2 days if not improving. Follow-up with Dr. Johnson in 1-2 weeks for another exam. She was seen by him as an inpatient previously. Return to the emergency department for any worsening symptoms. Disposition: To home in improved and stable condition. Impression: 1. COPD. 2. Hiatal hernia. This note was generated with [employer] dictation software. It may contain incorrect words, spelling, and punctuation that were not noted in review of the chart prior to signing ED Disposition - Plan for ED Patient: Chief Complaint: Shortness of Breath Instructions: ED COPD Flare Referrals: Jethro Goel [Primary Care Provider] - 1-2 Days if not improving Omar Johnson MD [STAFF PHYSICIAN] - 1-2 Weeks
[2018-01-09] MEDS: Ipratropium/Albuterol Sulfate 3 ML AMPUL.NEB INHALATION (02:28)
[2018-01-09] MEDS: Albuterol 2.5 MG/3 ML VIAL.NEB. INHALATION ×2 (02:29)
[2018-01-09 02:31] VITALS: PULSE 54; RESP 14
[2018-01-09 03:15] VITALS: BP 177/68; PULSE 60; O2SAT 97
--- NOTE | 2018-01-10 11:47 | CM.ED ---
ED CALLBACK: Follow-up call placed to patient. Voicemail received. CM contact information provided.
--- NOTE | 2018-01-10 14:49 | CASEMGMT ---
Social Work Note Pt has had several visits in the past 5 months. Based on chart review feel that pt could benefit from a palliative care consult. Placed call to educate to resource and offer to place referral and pt unavailable. Left vm without identifiers and requested a return phone call. Fany Garza, CUSTOM HARVESTER, PUBLIC RELATIONS STUDIES DIRECTOR
== END 2018-01-09 03:30 | disposition home or self-care (01) ==
LOC: ED 03:25
PROVIDERS: Emergency Provider Emergency Medicine; Family Provider Student in an Organized Health Care Education/Training Program; PCP Student in an Organized Health Care Education/Training Program
DX: J44.9 Chronic obstructive pulmonary disease, unspecified (principal); K44.9 Diaphragmatic hernia without obstruction or gangrene; Z87.891 Personal history of nicotine dependence
CPT/HCPCS: 94640; 99282

== ENCOUNTER 2018-01-26 06:58 | Emergency (ER) | payer MEDICARE, SELFPAY ==
[2018-01-26 06:58] VITALS: BP 131/67; PULSE 72; RESP 18; TEMP 36.6; O2SAT 96; BMI 25.1
[2018-01-26 07:01] VITALS: O2SAT 96
[2018-01-26 07:23] VITALS: PULSE 72; RESP 18
[2018-01-26] MEDS: Ipratropium/Albuterol Sulfate 3 ML AMPUL.NEB INHALATION (07:23)
--- NOTE | 2018-01-26 07:25 | ED.VISSUMM ---
- ER Visit Summary Date of Service: 01/26/18 Chief Complaint: Shortness of breath History of Present Illness: The patient is a 82 F with chronic shortness of breath secondary to COPD. She is complaining of nasal congestion states that she has to wear nasal strips in order to breathe. This is been an ongoing issue. Patient states she recently underwent some kind of scope at [facility] but she is unsure if this is a scope of her nose by ENT or an EGD performed by surgery. Patient states she was given a prescription for 2 different antibiotics. 1 of them is metronidazole which she has with her at bedside. The other one cost $600 and she did not fill that prescription. She states this does not seem to help her current breathing. Last night she had more trouble breathing through her nose and states she did not sleep much. She denies chest pain or cough. Physical Examination: Vital signs are unremarkable. Patient sitting upright in bed no acute distress. She speaking full sentences and is in no distress. Head neck examination is grossly unremarkable. Heart is regular rate and rhythm. Lung sounds are clear. Abdomen is soft nontender. Test Results: [] Emergency Department Course and Treatment: Patient was given a DuoNeb treatment along with Afrin. On repeat evaluation lungs remain clear with good air movement. Sats remained in the mid to upper 90s. I was able to look up some lab results from [facility], but could not see the notes from the surgeon that wrote her the Flagyl. Her test for Helicobacter pylori came back quite elevated. I did explain to her that at this time it is my assumption we are treating her for this and it will require a combination of antibiotics. I encouraged her to call the office on Saturday to explain that she could not afford a second antibiotic that was written for her. They should be able to provide her with another prescription that is more affordable. She understands and agrees. Treatment Plan: [] Disposition: Discharge Impression: 1. Chronic dyspnea 2. Nasal congestion This note was generated with [employer] dictation software. It may contain incorrect words, spelling, and punctuation that were not noted in review of the chart prior to signing ED Disposition - Plan for ED Patient: Chief Complaint: Shortness of Breath Referrals: Jethro Goel [Primary Care Provider] -
--- NOTE | 2018-01-26 07:58 | ED.DEP ---
ED Disposition - Plan for ED Patient: Disposition: Home or Assisted Living Chief Complaint: Shortness of Breath Instructions: ED Dyspnea Shortness of Breath Referrals: Jethro Goel [Primary Care Provider] - As Needed
[2018-01-26] MEDS: Oxymetazoline 0.05% 1 SPRAY SPRAY.BTL 2 SPRAY NASAL (07:59)
[2018-01-26 08:00] VITALS: BP 123/66; PULSE 60; RESP 18; O2SAT 95
[2018-01-26 08:16] VITALS: BP 126/88; PULSE 62; RESP 16; O2SAT 96
== END 2018-01-26 08:17 | disposition home or self-care (01) ==
PROVIDERS: Emergency Provider Emergency Medicine; Family Provider Student in an Organized Health Care Education/Training Program; PCP Student in an Organized Health Care Education/Training Program
DX: J44.9 Chronic obstructive pulmonary disease, unspecified (principal); R09.81 Nasal congestion; I12.9 Hypertensive chronic kidney disease with stage 1 through stage 4 chronic kidney disease, or unspecified chronic kidney disease; N18.9 Chronic kidney disease, unspecified; E78.00 Pure hypercholesterolemia, unspecified; K21.9 Gastro-esophageal reflux disease without esophagitis; D64.9 Anemia, unspecified; Z87.891 Personal history of nicotine dependence
CPT/HCPCS: 94640; 99282

== ENCOUNTER 2018-02-02 09:37 | Emergency (ER) | payer MEDICARE, SELFPAY ==
[2018-02-02 09:38] VITALS: BP 114/74; PULSE 98; RESP 24; TEMP 37.1; O2SAT 96; BMI 24.8
--- NOTE | 2018-02-02 09:42 | RAD_ITS ---
STUDY: X-RAY CHEST REASON FOR EXAM: Female, 82 years old. Shortness of breath. TECHNIQUE: Single AP portable view of the chest. COMPARISON: January 04, 2018. FINDINGS: There is hyperinflation of the lungs consistent with chronic obstructive lung disease (COPD). There is mild eventration of the right hemidiaphragm. There is mild interstitial thickening present in both lungs. There is no demonstrated pleural abnormality. There is borderline cardiomegaly. There are calcified mediastinal and hilar lymph nodes. There is prominence of the pulmonary hilar arteries without peripheral pulmonary vascular congestion. There is atherosclerotic calcification of the aortic arch with tortuosity. There is demineralization of the osseous structures. Normal visualized ribs, clavicles, and shoulders. Appears to be a small hiatal hernia. RAD/Chest 1 View (Portable) IMPRESSION: 1. COPD without radiographic evidence of acute cardiopulmonary disease. 2. Hiatal hernia. Electronically Signed: Bina Paniagua MD at 10:36 EDT , Service support ,
--- NOTE | 2018-02-02 09:42 | EKG12_ITS ---
Test Reason : SOB Blood Pressure : / mmHG Vent. Rate : 074 BPM Atrial Rate : 074 BPM P-R Int : 170 ms QRS Dur : 084 ms QT Int : 386 ms P-R-T Axes : 056 -20 038 degrees QTc Int : 428 ms Normal sinus rhythm with sinus arrhythmia Leftward axis Confirmed by REBA BARLOW, ENEIDA ([id number]), online content editor RAJESH MARTIN ([id number] on 02/12/2018 6:52:29 PM Referred By: PETER Confirmed By:ENEIDA BRITTON MD
--- NOTE | 2018-02-02 09:57 | ED.VISSUMM ---
- ER Visit Summary Date of Service: 02/02/18 Chief Complaint: [] Acute recurrent shortness of breath History of Present Illness: The patient is a 82 F [] long history of COPD not requiring home O2, has nebulizer machine, indicates she has a history of intermittent recurrent shortness of breath that does not respond to her medications at home. Her COPD actually has been intensifying and recently she was referred to a early childhood associate teacher whose name she cannot recall she believes some of her medications may have been changed and recalls receiving a prescription for medication that would have caused her $600 she could not afford it so she did not get that filled she did not contact the early childhood associate teacher to make them aware of the above prescription cost She indicates she has had this type of a exacerbation multiple times in the past she has no history of IA PE or DVT she has had a chronic cough that is unchanged no fever she is eating and drinking well she is just frustrated that she continues to have episodes of shortness of breath the symptoms are not exertional Physical Examination: [] Her vital signs are within normal range she is resting comfortably bed she speaking full sentences she is in no distress her nose and throat are unremarkable her lungs are diminished bilaterally her heart tones are unremarkable the abdomen is soft nontender upper lower extremities unremarkable her lower extremities are thin there is no cyanosis clubbing or edema or signs of any acute abnormality and again she has no history of IA PE or DVT resting in the bed clinically she looks well Test Results: [] Emergency Department Course and Treatment: [] Patient's labs EKG chest x-ray unremarkable she is been treated she is at her baseline I explained to her that she could should continue her outpatient medications follow-up with her early childhood associate teacher there is no indication for antibiotics or steroids as this is chronic she agrees and will follow-up and again she is at her baseline Treatment Plan: [] Disposition: [] Home stable Impression: [] Acute exacerbation of COPD This note was generated with [employer] dictation software. It may contain incorrect words, spelling, and punctuation that were not noted in review of the chart prior to signing ED Disposition - Plan for ED Patient: Chief Complaint: Shortness of Breath Referrals: Jethro Goel [Primary Care Provider] -
[2018-02-02] MEDS: Ipratropium/Albuterol Sulfate 3 ML AMPUL.NEB INHALATION (10:01)
--- NOTE | 2018-02-02 10:01 | PCA ---
PRINTED OLD EKG
[2018-02-02 10:02] VITALS: PULSE 82; RESP 20
[2018-02-02 10:22] LABS: Absolute Lymphocyte Count 0.85 X10^3/ul (0.83-4.51); Absolute Neutrophil Count 4.7 X10^3/uL (2.0-7.7); Basophil# 0.04 X10^3/uL; Basophil% 0.6 % (0-1); Eosinophil# 0.23 X10^3/uL; Eosinophils% 3.7 % (0-5); Hematocrit 33.9 % (37-47); Lymphocyte # 0.85 X10^3/ul (4.0); Lymphocyte % 13.6 % (19-41); Mean Corp Hgb Conc 32.4 g/gl (32-36); Mean Corpuscular Hgb 30.1 pg (27.0-32.0); Mean Corpuscular Volume 92.6 fL (81-99); Mean Platelet Vol. 9.7 fl (6.2-12.0); Monocyte# 0.46 X10^3/uL; Monocyte% 7.3 % (0-10); Neutrophil # 4.68 X10^3/uL (2.7-7.7); Neutrophil % 74.6 % (47-70); POSITIVE COUNT NO; POSITIVE DIFFERENTIAL NO; POSITIVE MORPHOLOGY NO; Platelet Count 283 K/mm3 (150-450); RBC Distribution Width CV 19.6 % (11.6-14.6); Red Blood Count 3.66 M/mm3 (4.2-5.4); White Blood Count 6.3 K/mm3 (4.4-11.0)
[2018-02-02 10:25] LABS: Anion Gap 8 (5-15); BUN 17 mg/dL (7-18); BUN/Creat Ratio 11.8 RATIO (10-20); Calcium,Total 9.3 mg/dL (8.5-10.1); Chloride 107 mmol/L (98-107); Creatinine, Serum 1.44 mg/dL (0.55-1.02); EST Glomerular Filtration Rate 37 mL/min (>60); Est Glom Filt Rate - Afr Amer 45 mL/min (>60); Estimated Creatinine Clearance 29.29 ml/min; Glucose 113 mg/dL (74-106); Sodium Level 138 mmol/L (136-145)
--- NOTE | 2018-02-02 10:59 | ED.DEP ---
ED Disposition - Plan for ED Patient: Chief Complaint: Shortness of Breath Instructions: ED COPD Flare Referrals: Jethro Goel [Primary Care Provider] -
[2018-02-02 11:00] LABS: BNP,B-Type NATRIURETIC PEPTIDE 41.3 pg/mL (0-100)
[2018-02-02 11:28] VITALS: BP 138/83; PULSE 79; RESP 20; O2SAT 93
== END 2018-02-02 11:48 | disposition home or self-care (01) ==
PROVIDERS: Emergency Provider Emergency Medicine; Family Provider Student in an Organized Health Care Education/Training Program; PCP Student in an Organized Health Care Education/Training Program
DX: J44.1 Chronic obstructive pulmonary disease with (acute) exacerbation (principal)
CPT/HCPCS: 71045; 80048; 83880; 84484; 85025; 93005; 94640; 99284; A4216

== ENCOUNTER 2018-02-05 00:45 | Emergency (ER) | payer MEDICARE, SELFPAY ==
--- NOTE | 2018-02-05 00:45 | DT_ITS ---
This patient was seen during an EMR downtime February 03, 2018 - February 10, 2018. This patient may have a combination of paper and electronic documentation or all paper documentation. All documentation is viewable within the e-chart portion of [facility] for each patient visit.
--- NOTE | 2018-02-05 11:45 | EKG12_ITS ---
Test Reason : DYSRHYTHMIA Blood Pressure : / mmHG Vent. Rate : 058 BPM Atrial Rate : 058 BPM P-R Int : 174 ms QRS Dur : 080 ms QT Int : 442 ms P-R-T Axes : 065 -16 043 degrees QTc Int : 433 ms Sinus bradycardia with marked sinus arrhythmia Otherwise normal ECG When compared with ECG of 02-FEB-2018 09:55, MANUAL COMPARISON REQUIRED, DATA IS UNCONFIRMED Confirmed by GENIE BARLOW, NATALIE ([id number]), assistant film editor RAJESH MARTIN ([id number]) on 02/20/2018 10:54:20 AM Referred By: Agustín Lovett Confirmed By:NATALIE PRESCOTT MD
== END 2018-02-06 01:40 | disposition home or self-care (01) ==
LOC: ED 02-06 15:54
PROVIDERS: Emergency Provider Emergency Medicine; Family Provider Student in an Organized Health Care Education/Training Program; PCP Student in an Organized Health Care Education/Training Program
DX: J44.1 Chronic obstructive pulmonary disease with (acute) exacerbation (principal); I10 Essential (primary) hypertension; E78.00 Pure hypercholesterolemia, unspecified; Z72.0 Tobacco use
CPT/HCPCS: 93005; 99282

== ENCOUNTER 2018-02-11 04:21 | Emergency (ER) | payer MEDICARE, SELFPAY ==
[2018-02-11 04:23] VITALS: BP 161/109; PULSE 79; RESP 17; TEMP 36.5; O2SAT 97; BMI 24.9
--- NOTE | 2018-02-11 04:28 | ED.VISSUMM ---
- ER Visit Summary Date of Service: 02/11/18 Chief Complaint: I cannot breathe History of Present Illness: The patient is a 82 F who presents because she cannot breathe. She states she cannot breathe through her nose and demonstrated that she has to open her naris with her fingers. She denies fever, chills night sweats. She denies change in voice. She denies difficulty swallowing. She states she has reflux and lung problems, and she is having trouble breathing. Patient denies any ocular, visual auditory symptoms. Denies chest pain or palpitations. She denies cough, dyspnea on exertion or orthopnea. She has no GI or symptoms. Denies myalgias arthralgias. Does have history of anxiety per old records. Per old records she has history of hypertension, hypercholesterolemia, stage III renal disease, GERD and anxiety Physical Examination: Vital signs are remarkable for elevated blood pressure 161/109. She appears anxious. She was observed walking from triage to her room. There is no respiratory distress. HEENT exam is remarkable for pale nasal mucosa with clear rhinorrhea. Posterior pharynx remarkable for postnasal drainage. Uvula is midline. There is no angioedema. There is no erythema or exudate. Trachea is midline. Lungs revealed good movement of air bilaterally with no wheeze, rales or rhonchi. Heart is regular without murmur, gallop or rub. Test Results: None are indicated Emergency Department Course and Treatment: Prescription for Flonase Treatment Plan: Treat allergic rhinitis and follow-up with Dr. armen chambers Disposition: Discharged to home Impression: 1. Dyspnea secondary to anxiety 2. Allergic rhinitis This note was generated with [employer] dictation software. It may contain incorrect words, spelling, and punctuation that were not noted in review of the chart prior to signing ED Disposition - Plan for ED Patient: Disposition: Home or Assisted Living Chief Complaint: Shortness of Breath Instructions: ED Allergy Nasal Prescriptions: Fluticasone 0.05% [Flonase Nasal [place]] 1 spray NASAL BID #1 bottle Referrals: Jethro Goel [Primary Care Provider] - 3-5 Days Additional Instructions: Your prescription was electronically transmitted to [facility].
--- NOTE | 2018-02-11 04:33 | ED.DCSUM_ITS ---
- ER Visit Summary Date of Service: 02/11/18 Chief Complaint: I cannot breathe History of Present Illness: The patient is a 82 F who presents because she cannot breathe. She states she cannot breathe through her nose and demonstrated that she has to open her naris with her fingers. She denies fever , chills night sweats. She denies change in voice. She denies difficulty swallowing. She states she has reflux and lung problems, and she is having trouble breathing. Patient denies any ocular, visual auditory symptoms. Denies chest pain or palpitations. She denies cough, dyspnea on exertion or orthopnea. She has no GI or symptoms. Denies myalgias arthralgias. Does have history of anxiety per old records. Per old records she has history of hypertension, hypercholesterolemia, stage III renal disease, GERD and anxiety Physical Examination: Vital signs are remarkable for elevated blood pressure 161 /109. She appears anxious. She was observed walking from triage to her room. There is no respiratory distress. HEENT exam is remarkable for pale nasal mucosa with clear rhinorrhea. Posterior pharynx remarkable for postnasal drainage. Uvula is midline. There is no angioedema. There is no erythema or exudate. Trachea is midline. Lungs revealed good movement of air bilaterally with no wheeze, rales or rhonchi. Heart is regular without murmur, gallop or rub. Test Results: None are indicated Emergency Department Course and Treatment: Prescription for Flonase Treatment Plan: Treat allergic rhinitis and follow-up with Dr. armen chambers Disposition: Discharged to home Impression: 1. Dyspnea secondary to anxiety 2. Allergic rhinitis This note was generated with [employer] dictation software. It may contain incorrect words, spelling, and punctuation that were not noted in review of the chart prior to signing ED Disposition - Plan for ED Patient: Disposition: Home or Assisted Living Chief Complaint: Shortness of Breath Instructions: ED Allergy Nasal Prescriptions: Fluticasone 0.05% [Flonase Nasal [place]] 1 spray NASAL BID #1 bottle Referrals: Jethro Goel [Primary Care Provider] - 3-5 Days Additional Instructions: Your prescription was electronically transmitted to [facility].
--- NOTE | 2018-02-12 16:14 | CM.ED ---
ED CALLBACK: Patient noted to have frequent ED visits without admission. Follow-up call placed without answer. Left a voicemail for patient to return call in regards to resources. Contact information provided. Of note, patient had two ED Callbacks in December and has not returned either call.
== END 2018-02-11 04:42 | disposition home or self-care (01) ==
LOC: ED 04:37
PROVIDERS: Emergency Provider Emergency Medicine; Family Provider Student in an Organized Health Care Education/Training Program; PCP Student in an Organized Health Care Education/Training Program
DX: F41.9 Anxiety disorder, unspecified (principal); J30.9 Allergic rhinitis, unspecified; I12.9 Hypertensive chronic kidney disease with stage 1 through stage 4 chronic kidney disease, or unspecified chronic kidney disease; N18.3 Chronic kidney disease, stage 3 (moderate); E78.00 Pure hypercholesterolemia, unspecified; K21.9 Gastro-esophageal reflux disease without esophagitis; Z87.891 Personal history of nicotine dependence; Z79.899 Other long term (current) drug therapy
CPT/HCPCS: 99282

== ENCOUNTER 2018-04-14 06:32 | Emergency (ER) | payer MEDICARE, SELFPAY ==
[2018-04-14 06:33] VITALS: BP 141/80; PULSE 81; RESP 18; TEMP 36.6; O2SAT 97; BMI 25.4
--- NOTE | 2018-04-14 06:45 | ED.VISSUMM ---
- ER Visit Summary Date of Service: 04/14/18 Chief Complaint: Shortness of breath History of Present Illness: The patient is a 83 F chronic history of shortness of breath. She states she is a history of COPD, hypertension and reflux. Patient states is been an ongoing problem for the last 2-3 years. States that she has been seen multiple times and does not believe anything specifically been done. She denies any chest pain. She denies any fever. She denies any hemoptysis. She denies any cough. She denies any leg pain or swelling. She denies any melena. Physical Examination: Well-appearing older female. Vital signs are stable afebrile. Her pulse ox is 97% on room air no hypoxia. She is in no distress whatsoever. Her respiratory rates 18. HEENT exam unremarkable. Moist wheeze membranes. Posterior pharynx is unremarkable. No stridor or drooling. There is no significant nasal congestion. She has clear rhinorrhea. Neck nontender. No JVD. No lymphadenopathy. Trachea midline. Lungs clear to auscultation bilaterally. Equal and symmetrical. Heart regular rate and rhythm without murmur rate about 80. Abdomen soft and nontender. Normal bowel sounds. No peritoneal signs. Patient is moving all 4 extremities. Calves are nontender without edema or cords. Neurologically the patient is awake alert without any focal motor deficits. Skin unremarkable. Back exam nontender. Test Results: I offered the patient screening labs to rule out such things anemia, pneumonia or cardiac issues. She did not want any testing done. She has been seen here multiple times for similar complaints and has refused other times any testing. Clinically her exam is unremarkable so testing may not yield any significant benefits. Emergency Department Course and Treatment: Patient refused testing and only wants something to open up her nose and help her breathing. She will be given 1 DuoNeb aerosol treatment and Afrin nasal spray. She is insistent the entire time that the shortness of breath is from her nose up and not in her lungs or chest. Treatment Plan: Repeat exam at 07 30 6 AM patient is doing well. Feels fine and wants to be discharged home. She was treated with a DuoNeb aerosol and Afrin nasal spray. Disposition: Discharge Impression: Dyspnea of uncertain etiology History of COPD Refused any lab work or testing. This note was generated with [employer] dictation software. It may contain incorrect words, spelling, and punctuation that were not noted in review of the chart prior to signing ED Disposition - Plan for ED Patient: Chief Complaint: Shortness of Breath Referrals: Jethro Goel [Primary Care Provider] -
[2018-04-14] MEDS: Oxymetazoline 0.05% 1 SPRAY SPRAY.BTL 2 SPRAY NASAL (06:51)
[2018-04-14 06:52] VITALS: O2SAT 97
[2018-04-14 06:59] VITALS: PULSE 59; RESP 18
[2018-04-14] MEDS: Ipratropium/Albuterol Sulfate 3 ML AMPUL.NEB INHALATION (06:59)
--- NOTE | 2018-04-14 07:39 | ED.DEP ---
ED Disposition - Plan for ED Patient: Disposition: Home or Assisted Living Chief Complaint: Shortness of Breath Instructions: ED COPD Flare Referrals: Jethro Goel [Primary Care Provider] - As Needed
--- NOTE | 2018-04-16 10:44 | CM.ED ---
ED CALLBACK: Follow-up call placed to patient. Patient states she is feeling better. I asked the patient if she feels she would benefit from any resources and patient tells me she can't afford her bills. Patient states her providers are with [facility]. I informed her that [facility] has a social media director and does have a financial assistance program. I encouraged the patient to request to speak with the social media director and patient states understanding. Patient states her income is over $1200 per month. This is too high too qualify for medicaid. As I began to bring up resources for health needs, the phone line cut off. I attempted to call back the patient and it received voicemail box. I left a voicemail with my return contact information.
== END 2018-04-14 07:43 | disposition home or self-care (01) ==
PROVIDERS: Emergency Provider Emergency Medicine; Family Provider Student in an Organized Health Care Education/Training Program; PCP Student in an Organized Health Care Education/Training Program
DX: R06.02 Shortness of breath (principal); J44.9 Chronic obstructive pulmonary disease, unspecified; I10 Essential (primary) hypertension; K21.9 Gastro-esophageal reflux disease without esophagitis; Z79.899 Other long term (current) drug therapy; Z87.891 Personal history of nicotine dependence
CPT/HCPCS: 94640; 99282

== ENCOUNTER 2018-05-05 02:49 | Emergency (ER) | payer MEDICARE, SELFPAY ==
[2018-05-05 02:50] VITALS: BP 167/92; PULSE 69; RESP 18; TEMP 36.5; O2SAT 95; BMI 24.9
[2018-05-05 03:08] VITALS: O2SAT 97
--- NOTE | 2018-05-05 03:33 | ED.VISSUMM ---
- ER Visit Summary Date of Service: 05/05/18 Chief Complaint: Dyspnea History of Present Illness: The patient is a 83 F patient presents with reported dyspnea this evening. She states dyspnea secondary to her nasal congestion. He does have a history of COPD. Denies cough. Denies chest pain. No fevers. She is on Flonase. No history of diabetes. No further complaints. Physical Examination: General: Alert and oriented ?3, no acute distress HEENT: Normocephalic, atraumatic. Moist mucosa membranes. Swollen turbinates bilaterally right greater than left, mild maxillary sinus tenderness bilaterally. Neck: supple, nontender. Cardiovascular: Regular rate and rhythm, no murmurs Respiratory: Normal breath sounds, symmetric, no distress Abdomen: Soft, nontender, nondistended Extremities: Nontender, no edema, pulses intact ?4 Neuro: no focal neurological deficits. Test Results: [] Emergency Department Course and Treatment: Patient vitals stable, pulse ox stable. No respiratory distress. There is congestion of her nasal airways. She is not diabetic. Discussed given her Decadron dose to help with inflammation. Addition was started on loratadine. Discussed sinusitis with the patient. No indications for antibiotics at this time. Treatment Plan: [] Disposition: Discharge Impression: 1. Sinusitis This note was generated with [employer]kit dictation software. It may contain incorrect words, spelling, and punctuation that were not noted in review of the chart prior to signing ED Disposition - Plan for ED Patient: Disposition: Home or Assisted Living Chief Complaint: Shortness of Breath Diagnosis: Sinusitis Instructions: ED Sinusitis No Abx Prescriptions: Loratadine [Allergy Relief] 10 mg PO DAILY #30 tablet Referrals: Jethro Goel [Primary Care Provider] - 3-5 Days
--- NOTE | 2018-05-06 11:04 | CM.ED ---
ED CALLBACK: Follow-up call placed to patient. Phone does not ring, but states the subscriber does not accept incoming calls.
== END 2018-05-05 03:51 | disposition home or self-care (01) ==
PROVIDERS: Emergency Provider Emergency Medicine; Family Provider Student in an Organized Health Care Education/Training Program; PCP Student in an Organized Health Care Education/Training Program
DX: J32.9 Chronic sinusitis, unspecified (principal); J44.9 Chronic obstructive pulmonary disease, unspecified; K21.9 Gastro-esophageal reflux disease without esophagitis; E78.00 Pure hypercholesterolemia, unspecified; Z79.899 Other long term (current) drug therapy
CPT/HCPCS: 99283

== ENCOUNTER 2018-05-15 04:29 | Emergency (ER) | payer MEDICARE, SELFPAY ==
[2018-05-15 04:31] VITALS: BP 169/82; PULSE 77; RESP 18; TEMP 36.4; O2SAT 97; BMI 24.9
[2018-05-15 04:35] VITALS: O2SAT 97
--- NOTE | 2018-05-15 04:45 | ED.DCSUM_ITS ---
- ER Visit Summary Date of Service: 05/15/18 Chief Complaint: Nasal congestion History of Present Illness: The patient is a 83 F presents to the emergency department with nasal congestion. Patient states she has been battling the symptoms for the past 2 months. She states that she has tried all of these medicines and nothing seemed to help her. She states that she is even using nasal strips. She states that she has tried her nebulizer with little relief. She feels like she cannot breathe through her nose. She denies any cough. She denies any shortness of breath. The patient is also concerned because she states that 2 weeks ago, I got 2 pints of blood here. 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 She is worried she may be anemic. Physical Examination: Vital signs reviewed General: Well-nourished, well-developed Head: Normocephalic, atraumatic Eyes: Pupils equal and reactive, extraocular muscles intact Neck, supple, no lymphadenopathy Heart: Regular rate and rhythm Respiratory: No distress, clear bilaterally Abdomen: Soft, nontender, nondistended, no peritoneal signs Back: Nontender Extremities: Nontender, no edema, no cords Skin: Normal color no rash Neuro: Alert and oriented, no focal or lateralizing deficits Test Results: [] Emergency Department Course and Treatment: The patient is in no distress. She has no wheezing or rhonchi. Oropharynx is widely patent. There is some congestion of her turbinates but no purulent drainage. There is no tenderness to palpation along the face. Her TMs are clear bilaterally. I do feel this is more of a chronic problem. She was given Afrin and prednisone. She did have improvement. She is also concerned about her anemia. I obtained a hemoglobin which was normal. She was reassured. At this time, due to the patient is safe for discharge. She is resting comfortably. She will be discharged home. Treatment Plan: [] Disposition: [] Impression: Nasal congestion This note was generated with [employer] dictation software. It may contain incorrect words, spelling, and punctuation that were not noted in review of the chart prior to signing ED Disposition - Plan for ED Patient: Chief Complaint: Shortness of Breath Instructions: ED Upper Resp Infec No Abx Tx Prescriptions: Prednisone [Deltasone] 40 mg PO DAILY #10 tab Referrals: Jethro Goel [Primary Care Provider] -
[2018-05-15] MEDS: predniSONE 20 MG Tablet 60 MG PO (04:55)
[2018-05-15] MEDS: Oxymetazoline 0.05% 1 SPRAY SPRAY.BTL 2 SPRAY NASAL (04:56)
[2018-05-15 05:06] LABS: Hematocrit 36.4 % (37-47); Hemoglobin 11.7 g/dl (12.0-15.0)
[2018-05-15 05:30] VITALS: BP 145/78; PULSE 59; RESP 20; O2SAT 96
== END 2018-05-15 05:31 | disposition home or self-care (01) ==
PROVIDERS: Emergency Provider Emergency Medicine; Family Provider Student in an Organized Health Care Education/Training Program; PCP Student in an Organized Health Care Education/Training Program
DX: R09.81 Nasal congestion (principal); Q27.30 Arteriovenous malformation, site unspecified; J44.9 Chronic obstructive pulmonary disease, unspecified; K21.9 Gastro-esophageal reflux disease without esophagitis; Z79.899 Other long term (current) drug therapy
CPT/HCPCS: 85014; 85018; 99283

== ENCOUNTER 2018-05-28 02:44 | Emergency (ER) | payer MEDICARE, SELFPAY ==
[2018-05-28 02:45] VITALS: BP 150/91; PULSE 78; RESP 16; TEMP 36.4; O2SAT 97; BMI 25.4
--- NOTE | 2018-05-28 03:10 | EKG12_ITS ---
Test Reason : SOB Blood Pressure : / mmHG Vent. Rate : 060 BPM Atrial Rate : 060 BPM P-R Int : 156 ms QRS Dur : 080 ms QT Int : 436 ms P-R-T Axes : 045 -18 027 degrees QTc Int : 436 ms Sinus rhythm with occasional Premature ventricular complexes Otherwise normal ECG Confirmed by REBA BARLOW, ENEIDA ([id number]), movie editor RAJESH MARTIN ([id number]) on 05/30/2018 2:21:01 PM Referred By: SATYA Confirmed By:ENEIDA BRITTON MD
[2018-05-28 03:21] VITALS: PULSE 65; RESP 18
[2018-05-28] MEDS: Ipratropium/Albuterol Sulfate 3 ML AMPUL.NEB INHALATION (03:21)
--- NOTE | 2018-05-28 03:41 | ED.VISSUMM ---
- ER Visit Summary Date of Service: 05/28/18 Chief Complaint: Shortness of breath History of Present Illness: The patient is a 83 F who presents with shortness of breath. She states I have COPD high blood pressure and acid reflux and I just cannot breathe. She has multiple prior visits with a similar presentation. She complains of ongoing nasal congestion and nonproductive cough. She states she is scheduled to see ENT later this week. She denies any chest pain. She denies fevers vomiting diarrhea. Physical Examination: Afebrile vitals are normal Patient in no distress she does not appear dyspneic she was observed ambulating without difficulty Heart regular rate and rhythm Lungs are clear without rales rhonchi wheezes Abdomen soft Alert Test Results: EKG shows normal sinus rhythm at a rate of 60 with a PVC. Emergency Department Course and Treatment: Patient had stated she felt like she needed a breathing treatment. She was given a single DuoNeb. Her EKG is unremarkable. Chest x-ray was ordered which was refused by the patient. At this point she is clinically well-appearing. She has had extensive prior ER visits with similar presentation. I do not feel laboratory studies would be of benefit. She was advised to keep her scheduled follow-up appointment. I certainly believe there is also a component of anxiety to her symptoms. Patient understands to return for new or worsening symptoms and was discharged home. Treatment Plan: [] Disposition: Discharge Impression: Shortness of breath Anxiety This note was generated with [employer] dictation software. It may contain incorrect words, spelling, and punctuation that were not noted in review of the chart prior to signing ED Disposition - Plan for ED Patient: Chief Complaint: Shortness of Breath Referrals: Jethro Goel [Primary Care Provider] -
--- NOTE | 2018-05-28 03:44 | ED.DEP ---
ED Disposition - Plan for ED Patient: Chief Complaint: Shortness of Breath Instructions: ED Dyspnea Shortness of Breath Referrals: Jethro Goel [Primary Care Provider] -
[2018-05-28 03:51] VITALS: BP 156/76; PULSE 68; RESP 18; O2SAT 96
--- NOTE | 2018-05-29 10:09 | CM.ED ---
ED CALLBACK: Follow-up call placed to patient. Message states the subscriber does not accept incoming calls.
== END 2018-05-28 03:53 | disposition home or self-care (01) ==
LOC: ED 03:05
PROVIDERS: Emergency Provider Emergency Medicine; Family Provider Student in an Organized Health Care Education/Training Program; PCP Student in an Organized Health Care Education/Training Program
DX: R06.02 Shortness of breath (principal); F41.9 Anxiety disorder, unspecified; I10 Essential (primary) hypertension; J44.9 Chronic obstructive pulmonary disease, unspecified; E78.00 Pure hypercholesterolemia, unspecified; K21.9 Gastro-esophageal reflux disease without esophagitis; Z79.899 Other long term (current) drug therapy; Z87.891 Personal history of nicotine dependence
CPT/HCPCS: 93005; 94640; 99282

== ENCOUNTER 2018-06-22 07:24 | Emergency (ER) | payer MEDICARE, SELFPAY ==
[2018-06-22 07:25] VITALS: BP 164/102; PULSE 89; RESP 16; TEMP 36.6; O2SAT 97; BMI 26.1
--- NOTE | 2018-06-22 07:42 | ED.VISSUMM ---
- ER Visit Summary Date of Service: 06/22/18 Chief Complaint: Nasal congestion History of Present Illness: The patient is a [address] Goel. She reports that she has nasal congestion that began 2-3 days ago. States she is having a very difficult time breathing through her nose. She does have a history of COPD. She reports that she has a chronic cough and shortness of breath that are unchanged. When asked about her cough she reports that she coughs occasionally, but not very much. Patient denies any fever or chills. She denies headache. She reports that she was placed on Mucinex June [address] Goel and has an appointment to see Dr. Tae Berger June 24. Physical Examination: Vitals: Stable. Afebrile. General: Well-nourished and well-developed. Head: Normocephalic atraumatic. Neck: Supple, no lymphadenopathy. No JVD. Nontender. Cardiovascular: Regular rate and rhythm. No murmurs. Respiratory: No respiratory distress. Clear to auscultation bilaterally. Abdominal: Soft, nontender, nondistended, normal bowel sounds. No guarding, rebound, or peritoneal signs. Back: Nontender. Extremities: Nontender, no edema. Skin: Normal color, no rash. Neurologic: Alert and oriented ?3. Cranial nerves II through XII are intact. Normal strength and sensation. Psych: Normal affect. Emergency Department Course and Treatment: Reviewing the patient's records it appears that in May she was on Claritin. I asked her about this. She is no longer on Claritin. She was given a dose here. Treatment Plan: Patient will be discharged on Claritin. Symptomatic care was discussed. Patient be discharged instructions to follow-up with Dr. Tae Berger in 2 days as previously scheduled. Return to the emergency department for any worsening symptoms. Disposition: To home in improved and stable condition. Impression: 1. Nasal congestion. This note was generated with [employer] dictation software. It may contain incorrect words, spelling, and punctuation that were not noted in review of the chart prior to signing ED Disposition - Plan for ED Patient: Disposition: Home or Assisted Living Chief Complaint: Cold Sx Instructions: ED Sinusitis No Abx Prescriptions: Loratadine [Claritin] 10 mg PO DAILY #30 tablet Referrals: Tae Emery MD [STAFF PHYSICIAN] - Keep [place] appointment
[2018-06-22 07:52] VITALS: O2SAT 100
== END 2018-06-22 07:53 | disposition home or self-care (01) ==
LOC: ED 07:52
PROVIDERS: Emergency Provider Emergency Medicine; Family Provider Student in an Organized Health Care Education/Training Program; PCP Student in an Organized Health Care Education/Training Program
DX: R09.81 Nasal congestion (principal); I12.9 Hypertensive chronic kidney disease with stage 1 through stage 4 chronic kidney disease, or unspecified chronic kidney disease; N18.9 Chronic kidney disease, unspecified; D63.1 Anemia in chronic kidney disease; J44.9 Chronic obstructive pulmonary disease, unspecified; K21.9 Gastro-esophageal reflux disease without esophagitis; Z79.899 Other long term (current) drug therapy; Z87.891 Personal history of nicotine dependence
CPT/HCPCS: 99282

== ENCOUNTER 2018-06-29 07:47 | Emergency (ER) | payer MEDICARE, SELFPAY ==
[2018-06-29 07:48] VITALS: BP 160/81; PULSE 78; RESP 18; TEMP 36.5; O2SAT 96; BMI 25.0
[2018-06-29 08:01] VITALS: O2SAT 96
--- NOTE | 2018-06-29 08:04 | CT_ITS ---
STUDY: CT MAXILLOFACIAL SINUSES REASON FOR EXAM: Female, 83 years old. Sinus congestion. RADIATION DOSAGE (If Supplied By Facility): CTDIvol = ( 29.38 ) mGy, DLP = ( 598.88 ) mGycm TECHNIQUE: The patient was scanned in a multi detector CT scanner. High resolution axial imaging was performed without the administration of intravenous contrast material. Sagittal and coronal images were reconstructed. Individualized dose optimization techniques were used for this CT. COMPARISON: None. FINDINGS: FRONTAL SINUSES: Normal aeration, without mucosal inflammatory disease. ETHMOIDAL SINUSES: There is mild mucosal thickening. MAXILLARY SINUSES: There is lobular mucosal thickening with retention cysts or polyps on the left more than the right, series 601 images 42/153 through 51/153 SPHENOIDAL SINUSES: Normal aeration, without mucosal inflammatory disease. There is patency of the bilateral maxillary infundibuli with normal uncinate processes, ethmoid bullae, and hiatus semilunaris. There is paradoxical curvature of the left middle turbinate. There is hypertrophy of the bilateral inferior nasal turbinates. There is a left sided nasal septal deviation, but without a nasal septal spur. There is patency of the bilateral nasal airways. The visualized osseous structures are normal. The visualized bilateral orbital contents are normal. There is arthritic change of the right temporomandibular joint. CT/Sinus/Facial Bone IMPRESSION: Mucosal thickening with retention cysts or polyps in the maxillary sinuses. Nasal septal deviation. Mucosal operative the turbinates narrowing the nasal air passageway. Electronically Signed: Anam Diaz MD at 8:54 EDT , Service support ,
--- NOTE | 2018-06-29 08:15 | RAD_ITS ---
STUDY: X-RAY CHEST REASON FOR EXAM: Female, 83 years old. Dyspnea. TECHNIQUE: PA and lateral views of the chest. COMPARISON: February 02, 2018. FINDINGS: There is hyperinflation of the lungs consistent with chronic obstructive lung disease (COPD). There is no demonstrated pleural abnormality. Normal size heart. Normal mediastinum and rasheed. Normal visualized pulmonary arteries. There is atherosclerotic calcification of the aortic arch with tortuosity. There is demineralization of the osseous structures. Normal visualized ribs, clavicles, and shoulders. There is no demonstrated abnormality of the visualized soft tissue structures of the upper abdomen. RAD/Chest PA and Lateral IMPRESSION: Degenerative changes, as described above. No demonstrated acute cardiopulmonary process. Electronically Signed: Anam Diaz MD at 9:00 EDT , Service support ,
[2018-06-29 08:16] VITALS: PULSE 62; RESP 18
[2018-06-29] MEDS: Ipratropium/Albuterol Sulfate 3 ML AMPUL.NEB INHALATION (08:16)
--- NOTE | 2018-06-29 09:30 | ED.VISSUMM ---
- ER Visit Summary Date of Service: 06/29/18 Chief Complaint: [Dyspnea and nasal congestion] History of Present Illness: The patient is a 83 F [presents the emergency department with complaint of nasal congestion that she has had for about a year. Patient states that she was seen in the emergency department and was started on Claritin which she does not feel has helped her. Patient is seen her ear nose and throat physician Dr. Tae Emery who scheduled her to have surgery on July 28 but she does not think she can wait that long. Patient also complaining of some rattling in her chest intermittently. Patient's not had any fevers. Patient's not had any significant cough. Patient states that she does use inhalers that she has at home for her COPD which do seem to help her breathing somewhat.] Physical Examination: [HEENT-PERRLA, EOMI. Cranial nerves II through XII grossly intact. TMs clear. Mucous membranes moist. No adenopathy. Mild nasal turbinate edema bilaterally. No purulent drainage noted. Cardiovascular-regular rate and rhythm without murmur or ectopy Lungs-clear to auscultation, chest wall stable without crepitus or subcu emphysema Abdomen-normoactive bowel sounds, soft, nontender, no rebound or rigidity, no peritoneal signs. Extremities-intact ?4, normal range of motion, normal pulses, atraumatic] Test Results: [Chest x-ray obtained showed nothing acute. Patient also had a CT of the facial bones was read by radiologist as mucosal thickening in the maxillary sinuses with retention cysts versus polyps left greater than right. Patient also was noted to have a left-sided nasal deviation of the septum.] Emergency Department Course and Treatment: [Patient was given a DuoNeb aerosol which she does state helped her breathing however she still feels congested in her nose.] Treatment Plan: [I discussed case with Dr. Atnhony Emery who recommended possible oral steroid therapy which the patient refused. Patient otherwise to follow-up with Dr. Tae Emery's office.] Disposition: [Discharged home in stable condition] Impression: [Nasal congestion Septal deviation Dyspnea secondary to nasal congestion and COPD history] This note was generated with [employer] software. It may contain incorrect words, spelling, and punctuation that were not noted in review of the chart prior to signing ED Disposition - Plan for ED Patient: Chief Complaint: Cold Sx Referrals: Jethro Goel [Primary Care Provider] -
--- NOTE | 2018-06-29 09:33 | ED.DEP ---
ED Disposition - Plan for ED Patient: Chief Complaint: Cold Sx Instructions: ED Dyspnea Shortness of Breath Referrals: Jethro Goel [Primary Care Provider] - Anthony Emery MD [STAFF PHYSICIAN] - 3-5 Days
[2018-06-29 09:37] VITALS: PULSE 68; RESP 17; O2SAT 97
--- NOTE | 2018-06-29 09:38 | ED.RN ---
DISCHARGE INSTRUCTIONS GIVEN TO AND REVIEWED WITH PATIENT, PATIENT DENIES QUESTIONS OR CONCERNS AND VOICES UNDERSTANDING OF DISCHARGE INSTRUCTIONS. PT AMBULATES OUT OF ROOM WITHOUT DIFFICULTY.
== END 2018-06-29 09:38 | disposition home or self-care (01) ==
PROVIDERS: Emergency Provider Emergency Medicine; Family Provider Student in an Organized Health Care Education/Training Program; PCP Student in an Organized Health Care Education/Training Program
DX: J44.9 Chronic obstructive pulmonary disease, unspecified (principal); J34.2 Deviated nasal septum; R09.81 Nasal congestion; I10 Essential (primary) hypertension; K21.9 Gastro-esophageal reflux disease without esophagitis; Z87.891 Personal history of nicotine dependence; Z79.899 Other long term (current) drug therapy
CPT/HCPCS: 70486; 71046; 94640; 99282

== ENCOUNTER 2018-07-10 04:02 | Emergency (ER) | payer MEDICARE, SELFPAY ==
[2018-07-10 04:03] VITALS: BP 173/91; PULSE 68; RESP 20; TEMP 36.2; O2SAT 97; BMI 25.9
--- NOTE | 2018-07-10 04:21 | ED.DCSUM_ITS ---
- ER Visit Summary Date of Service: 07/10/18 Chief Complaint: Shortness of breath History of Present Illness: The patient is a 83 F who says she cannot breathe through her nose. She is requesting a breathing treatment. She walked into the emergency department. She denies any chest pain fever or chills. She is speaking in full sentences and appears well she says this is chronic for the past 3 years and there is no change today. I asked her if this is worse than usual she tells me no. Physical Examination: Patient is speaking full sentences she does not appear in distress Moist mucous membranes, she has some mild upper airway congestion, she has no postnasal drip that I can see. No C-spine tenderness supple neck. Regular rate and rhythm without any obvious murmurs Clear lungs bilaterally speaking in full sentences without any obvious respiratory distress Abdomen soft and nontender no guarding or rebound Moves all extremities without any difficulty or pain. Skin does not show any obvious rashes or lesions, no trauma. Alert oriented ?3 with no gross focal deficit Emergency Department Course and Treatment: I told the patient I am unsure about the etiology of her shortness of breath but I would do a workup. She refused a chest x-ray or blood work. I told her I am not sure what to do as far as making her feel better she requested a breathing treatment. I explained to her that her problem is nasal congestion, her lungs are completely clear in all anna. She insisted on the breathing treatment. I told her I would give her decongestants. She refused decongestants, she was quite angry and started yelling at me. She got up and came towards me, I felt threatened. I backed away. She then walked out of the emergency department Disposition: Eloped Impression: Subjective dyspnea This note was generated with [employer] dictation software. It may contain incorrect words, spelling, and punctuation that were not noted in review of the chart prior to signing ED Disposition - Plan for ED Patient: Chief Complaint: Shortness of Breath Referrals: Jethro Goel [Primary Care Provider] -
[2018-07-10 04:22] VITALS: BP 173/91; PULSE 68; RESP 20; O2SAT 97
== END 2018-07-10 04:23 | disposition home or self-care (01) ==
PROVIDERS: Emergency Provider Emergency Medicine; Family Provider Student in an Organized Health Care Education/Training Program; PCP Student in an Organized Health Care Education/Training Program
DX: R06.02 Shortness of breath (principal); Z53.21 Procedure and treatment not carried out due to patient leaving prior to being seen by health care provider
CPT/HCPCS: 99282

== ENCOUNTER 2018-07-11 08:08 | Day surgery (SDC) | payer MEDICARE, SELFPAY ==
[2018-07-10 08:15] VITALS: BP 164/78; PULSE 59; RESP 16; TEMP 36.5; O2SAT 96; BMI 26.4
[2018-07-10 08:43] LABS: Hematocrit 36.7 % (37-47); Hemoglobin 11.7 g/dl (12.0-15.0); Mean Corp Hgb Conc 31.9 g/gl (32-36); Mean Corpuscular Hgb 31.3 pg (27.0-32.0); Mean Corpuscular Volume 98.1 fL (81-99); Mean Platelet Vol. 9.8 fl (6.2-12.0); Platelet Count 211 K/mm3 (150-450); RBC Distribution Width CV 14.1 % (11.6-14.6); RBC Distribution Width SD 50.6 fl (35.1-43.9); Red Blood Count 3.74 M/mm3 (4.2-5.4); Scan Indicated on CBC? Y/N NO; White Blood Count 6.1 K/mm3 (4.4-11.0)
[2018-07-10 09:07] LABS: AST(SGOT) 24 U/L (15-37); Alanine Aminotransfer ALT/SGPT 20 U/L (13-56); Albumin, Serum 3.8 g/dL (3.2-5.0); Alkaline Phosphatase 68 U/L (45-117); Anion Gap 5 (5-15); BUN 13 mg/dL (7-18); BUN/Creat Ratio 9.1 RATIO (10-20); Bilirubin, Direct 0.13 mg/dL (0.00-0.30); Chloride 110 mmol/L (98-107); Creatinine, Serum 1.43 mg/dL (0.55-1.02); EST Glomerular Filtration Rate 37 mL/min (>60); Est Glom Filt Rate - Afr Amer 45 mL/min (>60); Globulin 4.2 g/dL (2.2-4.2); Glucose 114 mg/dL (74-106); Sodium Level 140 mmol/L (136-145)
[2018-07-10 09:26] LABS: Partial Thromboplast Time 27.5 Seconds (24.1-36.2); Prothrombin Time (Protime)PT. 12.9 SECONDS (11.7-14.9)
[2018-07-11] VITALS (7 sets, daily range): BP systolic 138–175; BP diastolic 69–87; PULSE 50–70; RESP 14–18; TEMP 36.1–36.6; O2SAT 93–100; BMI 26.4
--- NOTE | 2018-07-11 09:45 | TUR_PTH ---
PATIENT: JAZMINE GONZALEZ LOC: [facility] [place] U#:[id number] AGE/SX: 83/F ROOM: RE07/11/[address]: Dr. Bernard Eric MD : [id number] BED: DIS: 07/11/2018 SPEC #: [id number] RECD: 07/11/18 11:15 STATUS: ROMEL ALLY #: [id number] XIOMARA: 07/11/18 09:[address]: Bernard Eric DEPT: SURGICAL PATHOLOGY RECD BY: Riccardo Wolfe ENTERED: 07/11/18 11:38 SP TYPE: TURBINATES OTHR DR: DO Jethro Sadler Tissues: A - Nasal turbinate, NOS B - Nasal turbinate, NOS Procedures: Surgery Specimen Level III HEADER OPERATION: Submucous resection inferior turbinates PRE-OP DIAGNOSIS: Hypertrophy of nasal turbinates TISSUE SUBMITTED: A - Left inferior turbinates, B - Right inferior turbinates MICROSCOPIC DIAGNOSIS A. Left inferior turbinate, excision: Benign glandular tissue with mild chronic inflammation. B. Right inferior turbinate, excision: Benign glandular tissue with mild chronic inflammation. AM:claudia 07/14/18 MICROSCOPIC DESCRIPTION Slides are reviewed. GROSS DESCRIPTION A. Received is one container labeled with the patient name and designated inferior turbinate,left. The specimen consists of multiple irregular fragments of aleman-pink soft tissue that in aggregate measure 1 x 1 x 0.2 cm. The specimen is totally submitted in one cassette. B. Received is one container labeled with the patient name and designated inferior turbinate,right. The specimen consists of multiple irregular fragments of aleman-pink soft tissue that in aggregate measure 1 x 1 x 0.1 cm. The specimen is totally submitted in one cassette. / JONNA:claudia 07/11/18 TC: 3 CPT: 36134 x2
[2018-07-11] MEDS: Lidocaine 4% 50 ML Bottle (10:31)
[2018-07-11] MEDS: Oxymetazoline 0.05% 1 SPRAY SPRAY.BTL 15 SPRAY (10:31)
[2018-07-11] MEDS: Bacitracin 500 UNITS/GM PACKET (10:40)
--- NOTE | 2018-07-11 10:44 | PCM.OPRPT ---
Problem List (1) Hypertrophy of nasal turbinates Status: Chronic Report of Operation Date of Procedure: 07/11/18 Pre-Operative Diagnosis: Bilateral hypertrophy inferior nasal turbinates Post-Operative Diagnosis: same Surgery/Procedure Performed:: Submucous resection of inferior nasal turbinates Description of Surgical Findings:: Maria Antonia is an 83-year-old female with complaints of chronic nasal obstruction. This had failed appropriate topical steroid and other medication therapy and examination showed significant hypertrophy of the inferior nasal turbinates bilaterally and the above procedure was offered in hopes of improvement. The risks, alternatives, potential benefits, and complications were discussed at length and any questions answered to the patient and/or caregiver's satisfaction. Witnessed informed consent was obtained in the office, and the patient and/or caregiver was agreeable to proceed. Procedure went as follows: The patient was identified in the preoperative holding and brought to the operating room where she is placed under general anesthesia and intubated. When appropriate anesthesia obtained the nasal cavity examined there is noted be significant hypertrophy of the inferior nasal turbinates. Pledgets soaked in a 50-50 mixture of oxymetazoline and 4% topical lidocaine were then placed for decongestion the mucosa. Attention was then turned to the inferior nasal turbinates. Anterior aspect of the inferior turbinate was then injected with 1% lidocaine with 100,000 epinephrine for a total of 1 mL bilaterally and then beginning on the left side a 15 blade scalpel used to create a stab incision in the anterior aspect of the turbinate. A caudal elevator was then used to elevate a submucosal plane. Using the microdebrider the anterior bony intervening submucosal was then removed resulting in excellent reduction of the inferior turbinate. Similar procedure was then completed on the contralateral side. Elam splints were then applied after cutting with bacitracin ointment and secured to the columella with a single 3-0 Prolene suture. Type of Anesthesia:: General Anesthesiologist: Bernard Deleon Special Medications: none Specimen's removed: submucous resection Drains: none Estimated Blood Loss (mL): 0 mL Fluids Replaced: 600 mL Grafts/Implants Used: Elam splints - Complications none - Admit VTE Documentation VTE Present on Admission: No VTE Mechan Device Prophylaxis: SCD's VTE Pharm Prophylaxis ordered?: No
--- NOTE | 2018-07-11 10:48 | OP.PCM_ITS ---
Problem List (1) Hypertrophy of nasal turbinates Status: Chronic Report of Operation Date of Procedure: 07/11/18 Pre-Operative Diagnosis: Bilateral hypertrophy inferior nasal turbinates Post-Operative Diagnosis: same Surgery/Procedure Performed:: Submucous resection of inferior nasal turbinates Description of Surgical Findings:: Maria Antonia is an 83-year-old female with complaints of chronic nasal obstruction. This had failed appropriate topical steroid and other medication therapy and examination showed significant hypertrophy of the inferior nasal turbinates bilaterally and the above procedure was offered in hopes of improvement. The risks, alternatives, potential benefits, and complications were discussed at length and any questions answered to the patient and/or caregiver's satis faction. Witnessed informed consent was obtained in the office, and the patient and/or caregiver was agreeable to proceed. Procedure went as follows: The patient was identified in the preoperative h olding and brought to the operating room where she is placed under general anesthesia and intubated. When appropriate anesthesia obtained the nasal cavity examined there is noted be significant hypertrophy of the inferior nasal turbinates. Pledgets soaked in a 50-50 mixture of oxymetazoline and 4% topical lidocaine were then placed for decongestion the mucosa. Attention was then turned to the inferior nasal turbinates. Anterior aspect of the inferior turbinate was then injected with 1% lidocaine with 100,000 epinephrine for a total of 1 mL bilaterally and then beginning on the left side a 15 blade scalpel used to create a stab incision in the anterior aspect of the turbinate. A caudal elevator was then used to elevate a submucosal plane. Using the microdebrider the anterior bony intervening submucosal was then removed resulting in excellent reduction of the inferior turbinate. Similar procedure was then completed on the contralateral side. Elam splints were then applied after cutting with bacitracin ointment and secured to the columella with a single 3-0 Prolene suture. Type of Anesthesia:: General Anesthesiologist: Bernard Deleon Special Medications: none Specimen's removed: submucous resection Drains: none Estimated Blood Loss (mL): 0 mL Fluids Replaced: 600 mL Grafts/Implants Used: Elam splints - Complications none - Admit VTE Documentation VTE Present on Admission: No VTE Mechan Device Prophylaxis: SCD's VTE Pharm Prophylaxis ordered?: No
--- NOTE | 2018-07-11 10:49 | DCINST_ITS ---
- Discharge Diagnoses Current Active Problems: Current Active and Chronic Problems Hypertrophy of nasal turbinates (Chronic) You will use the following diet at home:: Regular Discharge Activity: Return to Normal Activity, May not drive while taking narcotic pain medications. Call your doctor if your incision/area has: Sudden Increased Bleeding Call your doctor if you observe: Fever of 101 or Higher, Uncontrolled pain Allergies/Adverse Reactions: Allergies No Known Allergies Allergy (Verified 07/10/18 08:03) Medications to take at Discharge RX: Pravastatin [Pravachol] 20 mg PO QHS 07/03/13 RX: Albuterol Inhaler [Ventolin Hfa] 1 - 2 puff INHALATION Q4H PRN PRN #1 inhaler 11/28/17 RX: Ferrous Sulfate 325 mg PO DAILY@0800 12/06/17 RX: Albuterol Aerosols [Ventolin Aerosols] 2.5 mg INHALATION Q4H PRN #25 vial 01/04/18 Fluticasone/Vilanterol [Breo Ellipta Inhaler] 1 each IH DAILY 02/11/18 Primary Care Physician: Jethro Goel [Primary Care Provider] - Test Results: Test results from this visit will be discussed in further detail at your follow- up appointment, if applicable. Please Follow Up With: Bernard Eric MD When: 5 days
[2018-07-11] MEDS: Acetaminophen 325 MG Tablet 650 MG PO (13:02)
== END 2018-07-11 14:09 | disposition home or self-care (01) ==
LOC: SDC 08:08 → AC 08:09
PROVIDERS: Anesthesiology; Family Provider Student in an Organized Health Care Education/Training Program; PCP Student in an Organized Health Care Education/Training Program; Referring Provider Otolaryngology; Visit Provider Otolaryngology
PROC: (CPT 30520; principal; 2018-07-11 09:30)
DX: J34.3 Hypertrophy of nasal turbinates (principal); J43.9 Emphysema, unspecified; E78.00 Pure hypercholesterolemia, unspecified; D64.9 Anemia, unspecified; Z86.73 Personal history of transient ischemic attack (TIA), and cerebral infarction without residual deficits; Z87.891 Personal history of nicotine dependence; Z79.899 Other long term (current) drug therapy
CPT/HCPCS: 00160; 30140; 80048; 80076; 85027; 85610; 85730; 88304; J7120; J2405

== ENCOUNTER 2018-10-23 18:43 | Emergency (ER) | payer MEDICARE, SELFPAY ==
[2018-10-23 18:43] VITALS: BMI 25.5
[2018-10-23 18:48] VITALS: BP 152/81; PULSE 90; RESP 22; TEMP 38.1; O2SAT 96; BMI 25.8
[2018-10-23 18:56] VITALS: O2SAT 92
--- NOTE | 2018-10-23 19:32 | EKG12_ITS ---
Test Reason : Blood Pressure : / mmHG Vent. Rate : 082 BPM Atrial Rate : 082 BPM P-R Int : 154 ms QRS Dur : 084 ms QT Int : 370 ms P-R-T Axes : 057 -24 047 degrees QTc Int : 432 ms Normal sinus rhythm with sinus arrhythmia Possible Left atrial enlargement Borderline ECG Confirmed by REBA BARLOW, ENEIDA ([id number]), material expeditor MICHEL XIONG ([id number] on 10/27/2018 5:15:58 PM Referred By: OLRA Confirmed By:ENEIDA BRITTON MD
--- NOTE | 2018-10-23 19:40 | RAD_ITS ---
STUDY: X-RAY CHEST REASON FOR EXAM: Female, 83 years old. Shortness of breath TECHNIQUE: PA and lateral views of the chest. COMPARISON: 06/29/2018 FINDINGS: There is hyperinflation of the lungs consistent with chronic obstructive lung disease (COPD). Lungs are clear. Stable bihilar calcified lymph nodes and lung granulomas. There is no demonstrated pleural abnormality. Normal size heart. Normal mediastinum and rasheed. Normal visualized pulmonary arteries. Normal visualized aortic arch and descending thoracic aorta. Normal visualized thoracic spine. Normal visualized ribs, clavicles, and shoulders. There is no demonstrated abnormality of the visualized soft tissue structures of the upper abdomen. RAD/Chest PA and Lateral IMPRESSION: COPD without acute findings. Electronically Signed: Dieudonne Cho DO at 19:57 EST Tel , Service support ,
--- NOTE | 2018-10-23 19:41 | ED.DCSUM_ITS ---
- ER Visit Summary Date of Service: 10/23/18 Chief Complaint: Shortness of breath History of Present Illness: The patient is a 83 F with history of COPD who presents for shortness of breath that started this morning. Patient states she has had shortness of breath with an associated cough productive of yellow sputum. The cough is been going on for a few weeks. She has been using nebulizer treatments for her COPD for the last 2 months. They are not helping today. She did get a flu shot. She denies any abdominal pain, nausea vomiting or diarrhea, chest pain. She does have associated headache and myalgias. Denies any history of PE. Patient is not on any blood thinners. No cardiac history. Also has hypertension and GERD. Physical Examination: Vital signs: Low-grade fever 100.5, hemodynamically stable, no hypoxia on room air General: well nourished, well developed, in no distress Skin: warm, dry, no rash, no pallor HEENT: normocephalic and atraumatic; PERRL, EOMI, moist mucous membranes Cardiovascular: regular rate and rhythm without murmurs, no peripheral edema, 2+ pulses all distal extremities Respiratory: No increased work of breathing, lungs show rhonchi in the left lower field, right lung clear, no wheezing noted Abdominal: Abdomen is soft, nontender with normoactive bowel sounds, no guarding or rebound, no masses MSK: Moves all extremities, no deformities, normal strength Neuro: Awake and alert, oriented ?4. No facial droop, sensation and motor functi on intact and symmetric Test Results: Abnormal Lab Results 10/23/18 10/23/18 19:14 19:14 WBC 7.6 RBC 3.83 L Hgb 12.0 Hct 37.2 MCV 97.1 MCH 31.3 MCHC 32.3 RDW 14.1 RDW Differential 50.3 H Plt Count 209 MPV 9.9 Immature Gran % (Auto) 0.100 Neut % (Auto) 89.4 H Lymph % (Auto) 4.3 L K[place]y % (Auto) 4.3 Eos % (Auto) 1.6 Baso % (Auto) 0.3 Absolute Neuts (auto) 6.8 Absolute Lymphs (auto) 0.33 L Total Counted Not Reportable Differential Comment SEE COMMENT Platelet Estimate ADEQUATE Anisocytosis RARE Macrocytosis RARE Ovalocytes RARE Sodium 140 Potassium 4.1 Chloride 106 Carbon Dioxide 24.0 Anion Gap 10 BUN 21 H Creatinine 1.50 H Estim Creat Clear Calc 27.63 Est GFR (MDRD) Af Amer 43 L Est GFR (MDRD) Non-Af 35 L BUN/Creatinine Ratio 14.0 Glucose 122 H Calcium 8.9 Troponin I < 0.015 Clinical Impression(s) from Imaging Studies Microbiology Past 72 Hours 10/23/18 20:18 Mucosa - Nose Influenza Types A,B Direct FA ([facility]) - Final Chest X-Ray 10/23/18 19:40 IMPRESSION: COPD without acute findings. Electronically Signed: Dieudonne Cho DO at 19:57 EST Tel , Service support , Medications Given Sodium Chloride () 500 mls @ 999 mls/hr IV .Q31M ONE Last Admin: 10/23/18 19:57 Dose: 999 mls/hr Discontinued Medications Albuterol Sulfate (Ventolin Aerosols) 2.5 mg INHALATION Q20M ENEDELIA Stop: 10/23/18 20:26 Last Admin: 10/23/18 20:03 Dose: 2.5 mg Admin: 10/23/18 20:03 Dose: 2.5 mg Albuterol/Ipratropium (Duoneb) 3 ml INHALATION X1 ONE Stop: 10/23/18 19:32 Last Admin: 10/23/18 20:03 Dose: 3 ml Methylprednisolone (Solu-Medrol) 125 mg IV X1 ONE Stop: 10/23/18 19:32 Last Admin: 10/23/18 19:57 Dose: 125 mg Emergency Department Course and Treatment: Patient was given a series of breathing treatments and Solu-Medrol based on her history of COPD, now with cough and worsening shortness of breath today. Flu was checked and was negative. EKG showed a sinus rhythm with no ischemia or ectopy. Labs were unremarkable. Troponin negative. Chest x-ray showed COPD but no sign of pneumonia. On reevaluation, patient was very upset that she had been sitting in bed waiting for staff to come back in. I apologized to patient for the weight and stated I was going to reevaluate her breathing and if she was feeling well enough to discharge her home. Patient very irately stated that she was in the emergency department first and she just wanted to leave since she was having to wait. Patient was speaking in full sentences and showed no signs of respiratory distress. She refused any further reevaluation but is showing no signs of any respiratory distress and is having no difficulty speaking. She was given a prescription for prednisone burst and azithromycin for her COPD exacerbation and was discharged home in improved condition. Treatment Plan: [] Disposition: [] Impression: COPD exacerbation This note was generated with [employer] dictation software. It may contain incorrect words, spelling, and punctuation that were not noted in review of the chart prior to signing ED Disposition - Plan for ED Patient: Disposition: Home or Assisted Living Instructions: ED COPD Flare Prescriptions: RX: Azithromycin [Zithromax Z-Jf] 250 mg PO UD #1 box RX: Prednisone [Deltasone] 40 mg PO DAILY #8 tab Referrals: Jethro Goel [Primary Care Provider] - 1-2 Days if not improving Additional Instructions: Please continue using her breathing treatments at home for your COPD. Take the prednisone prescription daily for the next 4 days as prescribed. Take the first dose of prednisone on 10/24/2018. Because of the concern for COPD flare, you have also been prescribed an antibiotic. Please take it as prescribed. Follow-up with your doctor soon as possible for another evaluation. If you have any worsening of your condition or any new concerning symptoms, please return immediately to the emergency department for another evaluation.
[2018-10-23 19:50] LABS: Absolute Lymphocyte Count 0.33 X10^3/ul (0.83-4.51); Absolute Neutrophil Count 6.8 X10^3/uL (2.0-7.7); Basophil# 0.02 X10^3/uL; Basophil% 0.3 % (0-1); Eosinophil# 0.12 X10^3/uL; Eosinophils% 1.6 % (0-5); Hematocrit 37.2 % (37-47); Lymphocyte # 0.33 X10^3/ul (4.0); Lymphocyte % 4.3 % (19-41); Mean Corp Hgb Conc 32.3 g/gl (32-36); Mean Corpuscular Hgb 31.3 pg (27.0-32.0); Mean Corpuscular Volume 97.1 fL (81-99); Mean Platelet Vol. 9.9 fl (6.2-12.0); Monocyte# 0.33 X10^3/uL; Monocyte% 4.3 % (0-10); Neutrophil # 6.82 X10^3/uL (2.7-7.7); Neutrophil % 89.4 % (47-70); Platelet Count 209 K/mm3 (150-450); RBC Distribution Width CV 14.1 % (11.6-14.6); RBC Distribution Width SD 50.3 fl (35.1-43.9); Red Blood Count 3.83 M/mm3 (4.2-5.4); White Blood Count 7.6 K/mm3 (4.4-11.0)
[2018-10-23 19:51] LABS: Differential Indicated SCAN CRITERIA MET; POSITIVE COUNT NO; POSITIVE DIFFERENTIAL YES; POSITIVE MORPHOLOGY NO
[2018-10-23] MEDS: MethylPREDNISolone 125 MG/2 ML Vial IV (19:57)
[2018-10-23 19:58] VITALS: BP 149/77; PULSE 76; PULSE 81; RESP 16; RESP 19; TEMP 36.9; O2SAT 95
[2018-10-23 20:03] LABS: Anion Gap 10 (5-15); BUN 21 mg/dL (7-18); Calcium,Total 8.9 mg/dL (8.5-10.1); Chloride 106 mmol/L (98-107); EST Glomerular Filtration Rate 35 mL/min (>60); Est Glom Filt Rate - Afr Amer 43 mL/min (>60); Estimated Creatinine Clearance 27.63 ml/min; Glucose 122 mg/dL (74-106); Platelet Estimate ADEQUATE (ADEQ); Potassium 4.1 mmol/L (3.5-5.1); Sodium Level 140 mmol/L (136-145)
[2018-10-23] MEDS: Ipratropium/Albuterol Sulfate 3 ML AMPUL.NEB INHALATION (20:03)
[2018-10-23] MEDS: Albuterol 2.5 MG/3 ML VIAL.NEB. INHALATION ×2 (20:03)
[2018-10-23 20:08] LABS: Anisocytosis RARE; Macrocytosis RARE; Ovalocyte RARE
[2018-10-23 20:12] VITALS: PULSE 86; RESP 20
[2018-10-23 20:22] VITALS: PULSE 84; RESP 18
[2018-10-23 22:12] VITALS: BP 143/79; PULSE 88; RESP 22; O2SAT 95
== END 2018-10-23 22:13 | disposition home or self-care (01) ==
PROVIDERS: Emergency Provider Emergency Medicine; Family Provider Student in an Organized Health Care Education/Training Program; PCP Student in an Organized Health Care Education/Training Program
DX: J44.1 Chronic obstructive pulmonary disease with (acute) exacerbation (principal); I10 Essential (primary) hypertension; Z79.899 Other long term (current) drug therapy; Z87.891 Personal history of nicotine dependence
CPT/HCPCS: 71046; 80048; 84484; 85025; 87804; 93005; 94640; 96361; 96374; 99285; J7030; J7040; A4216

== ENCOUNTER 2018-11-08 02:10 | Emergency (ER) | payer MEDICARE, SELFPAY ==
[2018-11-08 02:10] VITALS: BP 186/76; PULSE 61; RESP 19; TEMP 36.4; O2SAT 99; BMI 25.2
[2018-11-08 02:12] VITALS: BP 186/76; PULSE 61; RESP 19; TEMP 36.4; O2SAT 99
--- NOTE | 2018-11-08 02:21 | ED.RN ---
pt wants this RN to wait to place IV. States 'I don't want you to give me an IV unless you are giving me something. Rn agreed to wait until MD evaluates PT.
--- NOTE | 2018-11-08 02:23 | EKG12_ITS ---
Test Reason : SOB Blood Pressure : / mmHG Vent. Rate : 059 BPM Atrial Rate : 059 BPM P-R Int : 160 ms QRS Dur : 082 ms QT Int : 434 ms P-R-T Axes : 041 -14 022 degrees QTc Int : 429 ms Sinus bradycardia Otherwise normal ECG Confirmed by GENIE BARLOW, NAATLIE ([id number]), order editor RAJESH MARTIN ([id number]) on 11/14/2018 8:49:31 AM Referred By: SATYA Confirmed By:NATALIE PRESCOTT MD
--- NOTE | 2018-11-08 02:41 | RAD_ITS ---
STUDY: X-RAY CHEST REASON FOR EXAM: Female, 83 years old. Productive cough TECHNIQUE: Frontal and lateral views of the chest. COMPARISON: 10/23/2018 FINDINGS: Stable hiatal hernia. The lungs are clear and expanded. There is no demonstrated pleural abnormality. Normal size heart. Normal mediastinum and rasheed. Normal visualized pulmonary arteries. There is atherosclerotic tortuosity of the aortic arch and descending thoracic aorta. Normal visualized thoracic spine. Normal visualized ribs, clavicles, and shoulders. There is no demonstrated abnormality of the visualized soft tissue structures of the upper abdomen. RAD/Chest PA and Lateral IMPRESSION: No acute pulmonary findings. Stable hiatal hernia. Electronically Signed: Prateek Mack MD at 4:04 EST Tel , Service support ,
[2018-11-08] MEDS: Ipratropium/Albuterol Sulfate 3 ML AMPUL.NEB INHALATION (02:47)
[2018-11-08 02:51] VITALS: PULSE 63; RESP 18
--- NOTE | 2018-11-08 03:38 | ED.RN ---
PER DR. HERNADEZ, PT WITH CHF EXACERBATION, NOT SEPSIS.
[2018-11-08 03:39] VITALS: BP 147/93; PULSE 61; RESP 18; O2SAT 98
[2018-11-08] MEDS: predniSONE 20 MG Tablet 60 MG PO (03:41)
--- NOTE | 2018-11-08 04:13 | ED.VISSUMM ---
- ER Visit Summary Date of Service: 11/08/18 Chief Complaint: Shortness of breath History of Present Illness: The patient is a 83 F who presents with shortness of breath. She states this developed over the last several hours. She complains of chest congestion. She states she is unable to cough anything up. She does have a history of COPD. She also complains of nasal congestion and states she can breathe through her nose. No fevers. No vomiting. Physical Examination: Afebrile blood pressure 186/76 vitals otherwise normal pulse ox 99% on room air Moist mucous membranes Heart regular rate and rhythm Lungs are clear did not appreciate rales rhonchi or wheezing she is in no distress able to speak in full sentences Abdomen soft Test Results: EKG shows sinus rhythm at a rate of 59. Two-view chest x-ray shows no acute findings. Emergency Department Course and Treatment: Patient was given a DuoNeb aerosol and prednisone here. We will continue for further days of prednisone. She was advised to follow-up with her primary care physician. She understands to return for new or worsening symptoms. She was discharged. Treatment Plan: [] Disposition: Discharge Impression: COPD exacerbation This note was generated with [employer] dictation software. It may contain incorrect words, spelling, and punctuation that were not noted in review of the chart prior to signing ED Disposition - Plan for ED Patient: Referrals: Jethro Goel [Primary Care Provider] -
--- NOTE | 2018-11-08 04:16 | ED.DCSUM_ITS ---
- ER Visit Summary Date of Service: 11/08/18 Chief Complaint: Shortness of breath History of Present Illness: The patient is a 83 F who presents with shortness of breath. She states this developed over the last several hours. She complains of chest congestion. She states she is unable to cough anything up. She does have a history of COPD. She also complains of nasal congestion and states she can breathe through her nose. No fevers. No vomiting. Physical Examination: Afebrile blood pressure 186/76 vitals otherwise normal pulse ox 99% on room air Moist mucous membranes Heart regular rate and rhythm Lungs are clear did not appreciate rales rhonchi or wheezing she is in no d istress able to speak in full sentences Abdomen soft Test Results: EKG shows sinus rhythm at a rate of 59. Two-view chest x-ray shows no acute findings. Emergency Department Course and Treatment: Patient was given a DuoNeb aerosol and prednisone here. We will continue for further days of prednisone. She was advised to follow-up with her primary care physician. She understands to return for new or worsening symptoms. She was discharged. Treatment Plan: [] Disposition: Discharge Impression: COPD exacerbation This note was generated with [employer] dictation software. It may contain incorrect words, spelling, and punctuation that were not noted in review of the chart prior to signing ED Disposition - Plan for ED Patient: Referrals: Jethro Goel [Primary Care Provider] -
--- NOTE | 2018-11-08 04:16 | ED.DEP ---
ED Disposition - Plan for ED Patient: Instructions: ED COPD Flare Prescriptions: Prednisone 60 mg PO DAILY #12 tab Referrals: Jethro Goel [Primary Care Provider] -
[2018-11-08 04:26] VITALS: BP 140/68; PULSE 61; RESP 18; O2SAT 98
--- NOTE | 2018-11-08 04:28 | ED.RN ---
Answered questions, gave emotional support. Suggested to pt to ask for a new medication for COPD. PT states she can't really afford Breo anyway. Also suggested some anxiety medication for her copd flare-ups. PT stated she would ask Dr. Goel as she thought these were good ideas.
--- NOTE | 2018-11-08 04:30 | ED.RN ---
Called for taxi ride home, 1 hr eta. Showed pt to lobby, gave remote, showed pt where coffee/beverage station.
== END 2018-11-08 04:31 | disposition home or self-care (01) ==
LOC: ED 03:32
PROVIDERS: Emergency Provider Emergency Medicine; Family Provider Student in an Organized Health Care Education/Training Program; PCP Student in an Organized Health Care Education/Training Program
DX: J44.1 Chronic obstructive pulmonary disease with (acute) exacerbation (principal); Z87.891 Personal history of nicotine dependence
CPT/HCPCS: 71046; 93005; 94640; 99283

== ENCOUNTER 2018-11-16 07:29 | Emergency (ER) | payer MEDICARE, SELFPAY ==
[2018-11-16 07:30] VITALS: BP 157/84; PULSE 78; RESP 18; TEMP 36.3; O2SAT 97; BMI 25.8
[2018-11-16 07:42] VITALS: O2SAT 98
--- NOTE | 2018-11-16 07:44 | ED.VISSUMM ---
- ER Visit Summary Date of Service: 11/16/18 Chief Complaint: Dyspnea History of Present Illness: The patient is a 83 F who presents the emergency department with shortness of breath of one day duration. She states that this episode began yesterday. She states she cannot take a breath in through her chest or through her nose. She reports that this is been a very ongoing issue. She has had numerous visits to the emergency department. She states she does not have a supervisor electronic coils. She was seen in 2017 while she was admitted in the hospital by Dr. Johnson who recommended outpatient evaluation and she states that has not been completed. She reports that she has a cough with some green sputum but this is not changed from her baseline. She did 2 albuterol aerosols during the night as well as Brio. She states this is not helped. She states the nasal issue has been an ongoing issue as well. She had surgery at the end of last year with Dr. Eric. Patient denies any fevers. Patient has quit smoking. Medical history includes bronchiectasis, COPD, hypertension and hypercholesterolemia, GERD, and chronic kidney disease. Primary care physician is Dr. Goel. She is a full code. Patient was last seen in the emergency department on November 08 and was started on prednisone. Physical Examination: Afebrile vital signs stable 98% on room air Gen: Well-nourished well-developed Head: Normocephalic atraumatic Eyes: Perrl EOMI ENT: TMs clear no rhinorrhea moist mucous membranes Neck: Supple no lymphadenopathy no JVD nontender CVS: Regular rate rhythm no murmurs normal S1-S2 Respiratory: No distress diminished bilaterally chest nontender Abdomen: Soft nontender nondistended normal bowel sounds no masses Back: Nontender Extremity: Nontender no edema Skin: Normal color no rash Neuro: alert orientated ?3 CN II-XII intact normal strength sensation reflexes gait cerebellar Psych: Normal affect normal mood Emergency Department Course and Treatment: Patient received prednisone and aerosols. Patient overall feels improved. She needs a prescription for more albuterol solution. I am going to give her Dr. Johnson's name for pulmonology referral Impression: 1. COPD exacerbation This note was generated with [employer] ([employer]: [place] dictation software. It may contain incorrect words, spelling, and punctuation that were not noted in review of the chart prior to signing ED Disposition - Plan for ED Patient: Disposition: Home or Assisted Living Instructions: ED COPD Flare Prescriptions: Albuterol Aerosols [Ventolin Aerosols] 2.5 mg INHALATION Q4H PRN #25 vial Prednisone [Deltasone] 40 mg PO DAILY #10 tab Referrals: Jethro Goel [Primary Care Provider] - Omar Johnson MD [STAFF PHYSICIAN] - (Please call to arrange outpatient pulmonology (long) physician consultation)
--- NOTE | 2018-11-16 07:47 | ED.DCSUM_ITS ---
- ER Visit Summary Date of Service: 11/16/18 Chief Complaint: Dyspnea History of Present Illness: The patient is a 83 F who presents the emergency department with shortness of breath of one day duration. She states that this episode began yesterday. She states she cannot take a breath in through her chest or through her nose. She reports that this is been a very ongoing issue. She has had numerous visits to the emergency department. She states she does not have a last ironer. She was seen in 2017 while she was admitted in the hospital by Dr. Johnson who recommended outpatient evaluation and she states that has not been completed. She reports that she has a cough with some green sputum but this is not changed from her baseline. She did 2 albuterol aerosols during the night as well as Brio. She states this is not helped. She states the nasal issue has been an ongoing issue as well. She had surgery at the end of last year with Dr. Eric. Patient denies any fevers. Patient has quit smoking. Medical history includes bronchiectasis, COPD, hypertension and hypercholesterolemia, GERD, and chronic kidney disease. Primary care physician is Dr. Goel. She is a full code. Patient was last seen in the emergency department on November 08 and was started on prednisone. Physical Examination: Afebrile vital signs stable 98% on room air Gen: Well-nourished well-developed Head: Normocephalic atraumatic Eyes: Perrl EOMI ENT: TMs clear no rhinorrhea moist mucous membranes Neck: Supple no lymphadenopathy no JVD nontender CVS: Regular rate rhythm no murmurs normal S1-S2 Respiratory: No distress diminished bilaterally chest nontender Abdomen: Soft nontender nondistended normal bowel sounds no masses Back: Nontender Extremity: Nontender no edema Skin: Normal color no rash Neuro: alert orientated ?3 CN II-XII intact normal strength sensation reflexes gait cerebellar Psych: Normal affect normal mood Emergency Department Course and Treatment: Patient received prednisone and aerosols. Patient overall feels improved. She needs a prescription for more albuterol solution. I am going to give her Dr. Johnson's name for pulmonology referral Impression: 1. COPD exacerbation This note was generated with [employer] dictation software. It may contain incorrect words, spelling, and punctuation that were not noted in review of the chart prior to signing ED Disposition - Plan for ED Patient: Disposition: Home or Assisted Living Instructions: ED COPD Flare Prescriptions: Albuterol Aerosols [Ventolin Aerosols] 2.5 mg INHALATION Q4H PRN #25 vial Prednisone [Deltasone] 40 mg PO DAILY #10 tab Referrals: Jethro Goel [Primary Care Provider] - Omar Johnson MD [STAFF PHYSICIAN] - (Please call to arrange outpatient pulmonology (long) physician consultation)
[2018-11-16] MEDS: predniSONE 20 MG Tablet 60 MG PO (07:49)
[2018-11-16 07:52] VITALS: PULSE 61; RESP 20
[2018-11-16] MEDS: Albuterol 2.5 MG/3 ML VIAL.NEB. INHALATION (07:52)
[2018-11-16] MEDS: Ipratropium/Albuterol Sulfate 3 ML AMPUL.NEB INHALATION (07:52)
[2018-11-16 08:28] VITALS: O2SAT 97
== END 2018-11-16 08:30 | disposition home or self-care (01) ==
LOC: ED 07:59
PROVIDERS: Emergency Provider Emergency Medicine; Family Provider Student in an Organized Health Care Education/Training Program; PCP Student in an Organized Health Care Education/Training Program
DX: J44.1 Chronic obstructive pulmonary disease with (acute) exacerbation (principal); I12.9 Hypertensive chronic kidney disease with stage 1 through stage 4 chronic kidney disease, or unspecified chronic kidney disease; N18.9 Chronic kidney disease, unspecified; Z87.891 Personal history of nicotine dependence
CPT/HCPCS: 94640; 99283

== ENCOUNTER 2018-11-17 04:49 | Emergency (ER) | payer MEDICARE, SELFPAY ==
[2018-11-16 07:30] VITALS: BMI 25.8
[2018-11-17 04:50] VITALS: BP 150/76; PULSE 73; RESP 18; TEMP 36.7; O2SAT 99; BMI 26.6
--- NOTE | 2018-11-17 05:08 | ED.VISSUMM ---
- ER Visit Summary Date of Service: 11/17/18 Chief Complaint: Shortness of breath History of Present Illness: The patient is a 83 F known history of COPD but not on oxygen, hypertension, anemia, reflux, gout and renal insufficiency. Patient's been seen in the emergency department multiple times. She was seen yesterday. Started on prednisone and an inhaler. She has not been able to get those filled as of yet but believes she may be I will get those filled today. She denies chest pain. She denies fever. She has a chronic cough of clear to yellowish to green sputum. No hemoptysis. This is not changed. Physical Examination: Well-appearing older female. Vital signs are stable. She is afebrile. Her pulse ox is 9 9% on room air no signs of hypoxia. HEENT exam unremarkable. Moist weeks membranes. Posterior pharynx normal. Neck nontender. No JVD. No lymphadenopathy. Lungs clear to auscultation bilaterally. No rales, rhonchi or wheezing. Equal and symmetrical. Heart regular rhythm no murmur. Abdomen soft and nontender. Extremities moves all 4. Calves are nontender without edema or cords. Neurologically she is awake alert with no focal motor deficits. Back is nontender. Test Results: None Emergency Department Course and Treatment: Clinically the patient looks good. She believes she will be able to get her prednisone and inhaler filled that was written for her yesterday. She did request a breathing treatment she will be given a DuoNeb aerosol here and a dose of prednisone. She has no referral to follow-up with pulmonology. Treatment Plan: Daily prednisone. Inhaler as needed. Follow-up with pulmonology. Disposition: Discharge Impression: Acute exacerbation COPD This note was generated with [employer] dictation software. It may contain incorrect words, spelling, and punctuation that were not noted in review of the chart prior to signing ED Disposition - Plan for ED Patient: Referrals: Jethro Goel [Primary Care Provider] -
--- NOTE | 2018-11-17 05:11 | ED.DEP ---
ED Disposition - Plan for ED Patient: Disposition: Home or Assisted Living Instructions: ED COPD Flare Referrals: Jethro Goel [Primary Care Provider] - As Needed Additional Instructions: Use your inhaler as needed. Prednisone daily until gone. Follow-up with Dr. Omar Johnson of pulmonology. Make sure you get your prescriptions filled.
[2018-11-17] MEDS: predniSONE 20 MG Tablet 40 MG PO (05:19)
[2018-11-17 05:29] VITALS: BP 150/76; PULSE 73; RESP 18; O2SAT 99
[2018-11-17 05:31] VITALS: PULSE 64; RESP 16
[2018-11-17] MEDS: Ipratropium/Albuterol Sulfate 3 ML AMPUL.NEB INHALATION (05:31)
== END 2018-11-17 05:35 | disposition home or self-care (01) ==
LOC: ED 05:14
PROVIDERS: Emergency Provider Emergency Medicine; Family Provider Student in an Organized Health Care Education/Training Program; PCP Student in an Organized Health Care Education/Training Program
DX: J44.1 Chronic obstructive pulmonary disease with (acute) exacerbation (principal); D64.9 Anemia, unspecified; Z87.891 Personal history of nicotine dependence
CPT/HCPCS: 94640; 99283

== ENCOUNTER 2018-11-21 19:10 | Emergency (ER) | payer MEDICARE, SELFPAY ==
[2018-11-21 19:12] VITALS: BP 153/72; PULSE 88; RESP 18; TEMP 36.6; O2SAT 95; BMI 25.7
[2018-11-21] MEDS: Ipratropium/Albuterol Sulfate 3 ML AMPUL.NEB INHALATION (19:29)
[2018-11-21 19:31] VITALS: O2SAT 99
[2018-11-21 19:35] VITALS: PULSE 82; RESP 18
--- NOTE | 2018-11-21 19:44 | RAD_ITS ---
STUDY: X-RAY CHEST REASON FOR EXAM: Female, 83 years old. COPD TECHNIQUE: Frontal and lateral views of the chest COMPARISON: 10/23/2018 FINDINGS: The lungs are clear. There are no pleural effusions. There is no pneumothorax. The heart is normal in size. The visualized osseous structures are within normal limits. RAD/Chest PA and Lateral IMPRESSION: No acute thoracic pathology. Electronically Signed: Tawanda Floyd, at 20:29 EDT Tel , Service support ,
[2018-11-21 21:03] VITALS: PULSE 84; RESP 18
[2018-11-21] MEDS: Albuterol 2.5 MG/3 ML VIAL.NEB. INHALATION (21:03)
[2018-11-21 21:33] VITALS: BP 153/78; PULSE 94; RESP 15; O2SAT 93
[2018-11-21] MEDS: Oxymetazoline 0.05% 1 SPRAY SPRAY.BTL 2 SPRAY NASAL (21:34)
[2018-11-21] MEDS: predniSONE 20 MG Tablet 60 MG PO (21:36)
--- NOTE | 2018-11-21 21:59 | ED.DCSUM_ITS ---
- ER Visit Summary Date of Service: 11/21/18 Chief Complaint: Shortness of breath History of Present Illness: The patient is a 83 F who presents with shortness of breath that became worse today. Patient states she has been coughing up some green sputum. Patient states she has a history of COPD. Patient states this feels similar to prior flareups of her COPD. Patient denies any chest pain. Patient denies any nausea or vomiting. Physical Examination: Vital signs are stable. Patient is afebrile. Patient is in no acute distress. Oral mucosa is pink and moist. Oropharynx is clear. Neck is supple. Trachea is midline. There is no JVD noted. Heart was regular rate and rhythm. Lungs showed diminished sounds diffusely. There is good respiratory effort noted. Abdomen is soft and nontender. Cranial nerves II through XII are intact. There are no focal motor or sensory deficits noted. Test Results: PA and lateral chest x-ray does not show any acute cardiopulmonary process. Emergency Department Course and Treatment: Patient was given a DuoNeb aerosol here. Patient states she still felt like she was having difficulty breathing but states it is because her nose is congested. Patient was given a another albuterol aerosol here. Patient was given a dose of Afrin here. Patient was able to take the Afrin nasal spray home with her. Patient was instructed to only use it for the next 3 days. Patient was instructed to follow-up with her primary care physician in 3-5 days. Patient understood and was agreeable with the plan. All questions were answered. Disposition: Discharge home Impression: COPD exacerbation Upper respiratory infection This note was generated with [employer] dictation software. It may contain incorrect words, spelling, and punctuation that were not noted in review of the chart prior to signing ED Disposition - Plan for ED Patient: Disposition: Home or Assisted Living Diagnosis: COPD exacerbation, Upper respiratory infection Instructions: ED Upper Resp Infec No Abx Tx, ED COPD Flare Referrals: Jethro Goel [Primary Care Provider] - 3-5 Days
[2018-11-21 22:08] VITALS: PULSE 86; RESP 16; O2SAT 98
== END 2018-11-21 22:08 | disposition home or self-care (01) ==
PROVIDERS: Emergency Provider Emergency Medicine; Family Provider Student in an Organized Health Care Education/Training Program; PCP Student in an Organized Health Care Education/Training Program
DX: J44.1 Chronic obstructive pulmonary disease with (acute) exacerbation (principal); J06.9 Acute upper respiratory infection, unspecified; Z87.891 Personal history of nicotine dependence
CPT/HCPCS: 71046; 94640; 99283

== ENCOUNTER 2018-12-28 05:54 | Emergency (ER) | payer MEDICARE, SELFPAY ==
[2018-12-28 05:54] VITALS: BP 163/103; PULSE 82; RESP 22; TEMP 36.7; O2SAT 98; BMI 26.7
--- NOTE | 2018-12-28 06:11 | EKG12_ITS ---
Test Reason : SOB Blood Pressure : / mmHG Vent. Rate : 058 BPM Atrial Rate : 058 BPM P-R Int : 164 ms QRS Dur : 076 ms QT Int : 426 ms P-R-T Axes : 065 -10 036 degrees QTc Int : 418 ms Sinus bradycardia Otherwise normal ECG Confirmed by REBA BARLOW, ENEIDA ([id number]), associate entertainment editor FLORENTIN MORLEY ([id number]) on 12/30/2018 11:11:28 AM Referred By: POLLO Confirmed By:ENEIDA BRITTON MD
--- NOTE | 2018-12-28 06:12 | ED.VIS.GEN ---
History of Present Illness Chief Complaint: Shortness of Breath Narrative: Patient stated that since noon yesterday she has been having shortness of breath and wheezing. She used her nebulizer one time per day. She has not been any recent steroids. She was seen last month however and placed on steroids due to COPD. She had frequent visits for COPD exacerbations. She denies any steroid inhalers. She states she has had a cough with occasional mucus. No fevers or chills. Comes in for further treatment and evaluation. Current severity is mild. Denies any chest pain. 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 (11) Diverticula of colon Status: Chronic (12) Dysmetabolic syndrome Status: Chronic (13) Fatigue Status: Chronic (14) GERD (gastroesophageal reflux disease) Status: Chronic (15) HLD (hyperlipidemia) Status: Chronic (16) HTN (hypertension) Status: Chronic (17) Hypercholesteremia Status: Chronic (18) Hypertrophy of nasal turbinates Status: Chronic (19) Lichen sclerosus Status: Chronic (20) Multiple pulmonary nodules Status: Chronic (21) Obesity Status: Chronic (22) Osteopenia Status: Chronic (23) Tobacco abuse Status: Chronic (24) Urinary, incontinence, stress female Status: Chronic Past Medical History - Allergies and Home Meds Allergies/Adverse Reactions: Allergies No Known Allergies Allergy (Verified 12/28/18 06:02) Primary Care Physician: Jethro Goel [Primary Care Provider] - Prior records reviewed: Yes Surgical History: - - Surgery for stress incontinence including a sling procedure Smoking Status: Former smoker Alcohol: None Drugs: None - Family History Paternal Family History: Reports: - - prostate CA Maternal Family History: Reports: - - breast CA Review of Systems General: Denies: Chills, Fever, Sweats Eyes: Denies: Visual changes - bilaterally, Diplopia ENT: Denies: Rhinorrhea, Sore throat Cardiovascular: Denies: Chest pain, Palpitations Respiratory: Reports: Dyspnea, Cough. Denies: Dyspnea on exertion Gastrointestinal: Denies: Abdominal pain, Nausea, Vomiting, Diarrhea, Melena, Hematochezia Genitourinary: Denies: Dysuria, Hematuria, Frequency Musculoskeletal: Denies: Back pain, Extremity Pain Skin: Denies: Rash, Wounds Neurological: Denies: Headache, Weakness, Numbness Physical Exam Vital Signs/Narrative: Vital Signs Temp Pulse Resp BP Pulse Ox 12/28/18 05:54 98.0 F 82 22 H 163/103 H 98 General: Well nourished, Well developed, No Acute Distress Head: Normocephalic, Atraumatic Eyes: Perrl, EOMI ENT: Moist mucous membranes, No rhinorrhea Neck: Supple, Nontender Cardiovascular: Regular rate, Regular rhythm, No murmurs Respiratory: No distress, Chest nontender, Wheezing - Mild expiratory wheezes throughout all lung anna Abdomen: Soft, Nontender, Nondistended, Normal bowel sounds Back: Nontender, Normal Inspection Extremities: Nontender, No edema Skin: Normal color, No rash Neurological: Alert, Oriented x3, Cranial nerves II-XII grossly intact, Normal Strength, Normal Sensation Psychological: Normal affect, Normal Mood Diagnostic/Tx/Re-eval - Medical Decision Making Patient given breathing treatment DuoNeb and prednisone. EKG obtained. EKG shows sinus rhythm at a rate of 58. No acute ischemia or arrhythmia noted. Patient felt better after breathing treatments. Will be given prednisone for home. At this time I think her COPD is acting up. I do not think she needs antibiotics. ED Disposition - Plan for ED Patient: Disposition: Home or Assisted Living Diagnosis: COPD with exacerbation Instructions: ED COPD Flare Prescriptions: Prednisone [Deltasone] 40 mg PO DAILY #10 tab Referrals: Jethro Goel [Primary Care Provider] -
[2018-12-28 06:20] VITALS: PULSE 64; RESP 18
[2018-12-28] MEDS: predniSONE 20 MG Tablet 40 MG PO (06:20)
[2018-12-28] MEDS: Ipratropium/Albuterol Sulfate 3 ML AMPUL.NEB INHALATION (06:30)
[2018-12-28 06:41] VITALS: BP 155/103; PULSE 64; RESP 19; O2SAT 94
== END 2018-12-28 06:43 | disposition home or self-care (01) ==
PROVIDERS: Emergency Provider Emergency Medicine; Family Provider Student in an Organized Health Care Education/Training Program; PCP Student in an Organized Health Care Education/Training Program
DX: J44.1 Chronic obstructive pulmonary disease with (acute) exacerbation (principal); I12.9 Hypertensive chronic kidney disease with stage 1 through stage 4 chronic kidney disease, or unspecified chronic kidney disease; N18.3 Chronic kidney disease, stage 3 (moderate); D63.1 Anemia in chronic kidney disease; E78.00 Pure hypercholesterolemia, unspecified; E66.9 Obesity, unspecified; Z68.26 Body mass index [BMI] 26.0-26.9, adult; Z86.73 Personal history of transient ischemic attack (TIA), and cerebral infarction without residual deficits; Z87.891 Personal history of nicotine dependence
CPT/HCPCS: 93005; 94640; 99284

== ENCOUNTER 2019-01-08 23:00 | Emergency (ER) | payer MEDICARE, SELFPAY ==
[2019-01-08 23:01] VITALS: BP 185/85; PULSE 85; RESP 20; TEMP 36.5; O2SAT 96; BMI 26.4
[2019-01-08 23:05] VITALS: O2SAT 97
--- NOTE | 2019-01-08 23:29 | EKG12_ITS ---
Test Reason : Blood Pressure : / mmHG Vent. Rate : 060 BPM Atrial Rate : 060 BPM P-R Int : 164 ms QRS Dur : 074 ms QT Int : 424 ms P-R-T Axes : 031 -16 015 degrees QTc Int : 424 ms Normal sinus rhythm Normal ECG Confirmed by MACO WEISS [id number]), proposal editor FLORENTIN MORLEY ([id number]) on 01/12/2019 2:03:48 PM Referred By: RADHA Confirmed By:MACO WEISS
--- NOTE | 2019-01-08 23:29 | RAD_ITS ---
STUDY: X-RAY CHEST REASON FOR EXAM: Female, 83 years old. Shortness of breath TECHNIQUE: PA and lateral COMPARISON: 11/21/2018 FINDINGS: The lungs are clear and expanded. There is no demonstrated pleural abnormality. Normal size heart. Normal mediastinum and rasheed. Normal visualized pulmonary arteries. Normal visualized aortic arch and descending thoracic aorta. Normal visualized thoracic spine. Normal visualized ribs, clavicles, and shoulders. There is no demonstrated abnormality of the visualized soft tissue structures of the upper abdomen. There is a small hiatal hernia. RAD/Chest PA and Lateral IMPRESSION: Normal x-ray examination of the chest. Electronically Signed: Talon José MD at 0:38 EDT , Service support ,
--- NOTE | 2019-01-08 23:29 | ED.VIS.GEN ---
History of Present Illness Chief Complaint: Shortness of Breath Narrative: Stated she is had shortness of breath with wheezing since noon today. It came on gradually. She did 2 breathing treatments with moderate relief of symptoms but came in for further evaluation. Last breathing treatment was at 6 PM. She has frequent visits for this very denies any chest pain. Denies any other symptoms. No significant cough. Denies any other symptoms current severity is mild. 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 (11) Diverticula of colon Status: Chronic (12) Dysmetabolic syndrome Status: Chronic (13) Fatigue Status: Chronic (14) GERD (gastroesophageal reflux disease) Status: Chronic (15) HLD (hyperlipidemia) Status: Chronic (16) HTN (hypertension) Status: Chronic (17) Hypercholesteremia Status: Chronic (18) Hypertrophy of nasal turbinates Status: Chronic (19) Lichen sclerosus Status: Chronic (20) Multiple pulmonary nodules Status: Chronic (21) Obesity Status: Chronic (22) Osteopenia Status: Chronic (23) Tobacco abuse Status: Chronic (24) Urinary, incontinence, stress female Status: Chronic Past Medical History - Allergies and Home Meds Allergies/Adverse Reactions: Allergies No Known Allergies Allergy (Verified 12/28/18 06:02) Primary Care Physician: Jethro Goel [Primary Care Provider] - Prior records reviewed: Yes Surgical History: - - Surgery for stress incontinence including a sling procedure Smoking Status: Former smoker Alcohol: None Drugs: None - Family History Paternal Family History: Reports: - - prostate CA Maternal Family History: Reports: - - breast CA Review of Systems General: Denies: Chills, Fever, Sweats Eyes: Denies: Visual changes - bilaterally, Diplopia ENT: Denies: Rhinorrhea, Sore throat Cardiovascular: Denies: Chest pain, Palpitations Respiratory: Reports: Dyspnea. Denies: Cough, Dyspnea on exertion Gastrointestinal: Denies: Abdominal pain, Nausea, Vomiting, Diarrhea, Melena, Hematochezia Genitourinary: Denies: Dysuria, Hematuria, Frequency Musculoskeletal: Denies: Back pain, Extremity Pain Skin: Denies: Rash, Wounds Neurological: Denies: Headache, Weakness, Numbness Physical Exam Vital Signs/Narrative: Vital Signs Temp Pulse Resp BP Pulse Ox 01/08/19 23:01 97.7 F L 85 20 H 185/85 H 96 General: Well nourished, Well developed, No Acute Distress Head: Normocephalic, Atraumatic Eyes: Perrl, EOMI ENT: Moist mucous membranes, No rhinorrhea Neck: Supple, Nontender Cardiovascular: Regular rate, Regular rhythm, No murmurs Respiratory: No distress, CTA bilaterally, Chest nontender Abdomen: Soft, Nontender, Nondistended, Normal bowel sounds Back: Nontender, Normal Inspection Extremities: Nontender, No edema Skin: Normal color, No rash Neurological: Alert, Oriented x3, Cranial nerves II-XII grossly intact, Normal Strength, Normal Sensation Psychological: Normal affect, Normal Mood Diagnostic/Tx/Re-eval - Medical Decision Making Patient resting comfortably. Her lungs are completely clear. Her pulse ox is greater than 95%. I do not think she needs another breathing treatment. EKG and chest x-ray obtained. Chest x-ray is negative. EKG shows sinus rhythm at a rate of 60. No ischemic acute ischemic findings. T wave inversion in inferior lead III. Unchanged from previous. I do not feel the patient needs lab work. Her lungs are clear to auscultation. I do not think she is having acute coronary syndrome. She is resting comfortably. I feel she can be discharged. I think this is just her COPD causing shortness of breath. She is demanding a breathing treatment. Will be given 1 prior to discharge. ED Disposition - Plan for ED Patient: Disposition: [facility] Diagnosis: COPD (chronic obstructive pulmonary disease) Instructions: ED COPD Flare Referrals: Jethro Goel [Primary Care Provider] -
[2019-01-09 01:03] VITALS: PULSE 86; RESP 18
[2019-01-09] MEDS: Ipratropium/Albuterol Sulfate 3 ML AMPUL.NEB INHALATION (01:03)
[2019-01-09 01:14] VITALS: BP 148/78; PULSE 74; RESP 16; O2SAT 98
[2019-01-09 01:17] VITALS: PULSE 75; RESP 18; O2SAT 97
[2019-01-09] MEDS: Sodium Chloride 0.65% 1 SPRAY SPRAY.BTL 2 SPRAY NASAL (01:23)
== END 2019-01-09 01:14 | disposition home or self-care (01) ==
PROVIDERS: Emergency Provider Emergency Medicine; Family Provider Student in an Organized Health Care Education/Training Program; PCP Student in an Organized Health Care Education/Training Program
DX: J44.9 Chronic obstructive pulmonary disease, unspecified (principal); I12.9 Hypertensive chronic kidney disease with stage 1 through stage 4 chronic kidney disease, or unspecified chronic kidney disease; N18.3 Chronic kidney disease, stage 3 (moderate); D63.1 Anemia in chronic kidney disease; E55.9 Vitamin D deficiency, unspecified; K21.9 Gastro-esophageal reflux disease without esophagitis; E78.00 Pure hypercholesterolemia, unspecified; E66.9 Obesity, unspecified; Z68.26 Body mass index [BMI] 26.0-26.9, adult; Z79.899 Other long term (current) drug therapy; Z86.73 Personal history of transient ischemic attack (TIA), and cerebral infarction without residual deficits; Z87.891 Personal history of nicotine dependence
CPT/HCPCS: 71046; 93005; 94640; 99284; A4216

== ENCOUNTER 2019-01-12 06:20 | Emergency (ER) | payer MEDICARE, SELFPAY ==
[2019-01-12 06:21] VITALS: BP 165/80; PULSE 69; RESP 20; TEMP 36.4; O2SAT 98; BMI 25.0
[2019-01-12 06:25] VITALS: O2SAT 98
--- NOTE | 2019-01-12 07:02 | ED.VIS.GEN ---
History of Present Illness Chief Complaint: Shortness of Breath Informant: Patient Onset: Yesterday Context: Gradual Onset Timing: Continuous Quality: Shortness of breath Location: home Current Severity: Mild Maximum Severity: Moderate Worsened by: Nothing Relieved by: Nothing Associated Symptoms: No associated symptoms Narrative: Patient is an elderly woman with history of COPD who was seen 3 days ago for shortness of breath. Work-up at that time was unremarkable. She was treated for COPD exacerbation. She denies fever, chills or night sweats. She denies ocular, visual auditory symptoms. She denies rhinorrhea, nasal congestion postnasal drip. She denies sore throat. She has a cough productive of green-colored sputum which is not abnormal for her. She apparently does not see a general passenger agent. She does not recall the last time she was on prednisone or a steroid inhaler. She denies history of PE or DVT. She denies leg pain, swelling discoloration. She does have varicose veins. She denies/has no VTE risk factors. She denies chest discomfort of any type. Prior similar symptoms: Yes Recent Illness/Hospitalization: Yes - Past Medical History (1) Vitamin B12 deficiency Status: Acute (2) Anxiety Status: Chronic (3) Bronchiectasis Status: Chronic (4) CVA (cerebral vascular accident) Status: Chronic (5) Chronic renal failure, stage 3 (moderate) Status: Chronic (6) Dysmetabolic syndrome Status: Chronic (7) GERD (gastroesophageal reflux disease) Status: Chronic (8) HLD (hyperlipidemia) Status: Chronic (9) HTN (hypertension) Status: Chronic (10) Multiple pulmonary nodules Status: Chronic (11) Tobacco abuse Status: Chronic (12) Urinary, incontinence, stress female Status: Chronic Past Medical History - Allergies and Home Meds Allergies/Adverse Reactions: Allergies No Known Allergies Allergy (Verified 12/28/18 06:02) Primary Care Physician: Jethro Goel [Primary Care Provider] - Prior records reviewed: Yes - ER record from 01/08/2019. Surgical History: noncontributory, - - Surgery for stress incontinence including a sling procedure Lives: Alone Smoking Status: Former smoker Alcohol: None Drugs: None - Family History Paternal Family History: Reports: - - prostate CA Maternal Family History: Reports: - - breast CA Review of Systems General: Denies: Chills, Fever, Sweats Eyes: Denies: Visual changes - bilaterally, Blurred Vision - bilaterally, Diplopia ENT: Denies: Bilateral ear pain, Rhinorrhea, Sore throat Cardiovascular: Denies: Chest pain, Palpitations Respiratory: Reports: Dyspnea, Cough, Sputum, Dyspnea on exertion. Denies: Orthopnea, Paroxysmal nocturnal dyspnea, -, - Gastrointestinal: Denies: Abdominal pain, Nausea, Vomiting, Diarrhea, Melena, Hematochezia Genitourinary: Denies: Dysuria, Hematuria, Frequency Musculoskeletal: Denies: Back pain, Extremity Pain Skin: Denies: Rash, Wounds Neurological: Denies: Headache, Weakness, Numbness Hematologic: Denies: Easy bruising Allergy: Denies: Uticaria, Swelling of the mouth Physical Exam Vital Signs/Narrative: Vital Signs Temp Pulse Resp BP Pulse Ox 01/12/19 06:21 97.5 F L 69 20 H 165/80 H 98 Inital Vital Signs reviewed: Yes General: Well nourished, Well developed, No Acute Distress Head: Normocephalic, Atraumatic Eyes: Perrl, EOMI ENT: Moist mucous membranes, No rhinorrhea Neck: Supple, Nontender Cardiovascular: Regular rate, Regular rhythm, No murmurs Respiratory: No distress, Chest nontender, Wheezing, Decreased Air Movement. Negative for: Retractions, Chest tenderness Abdomen: Soft, Nontender, Nondistended, Normal bowel sounds Back: Nontender, Normal Inspection Extremities: Nontender, No edema, - - There is no asymmetry, swelling, discoloration, leg vein distention, palpable cords or tenderness along the distribution of the deep venous system. There is evidence of varicosity. There is no evidence of superficial phlebitis. Skin: Normal color, No rash Neurological: Alert, Oriented x3, Cranial nerves II-XII grossly intact, Normal Strength, Normal Sensation, Normal Gait Psychological: Normal affect, Normal Mood Diagnostic/Tx/Re-eval Chest X-Ray - ED: 2 View, Read by ED Physician, Unchanged, Normal, Heart, Mediastinum, Bony Structures, No Acute Disease, Chronic Changes, - - Chest x-ray is unchanged from January 08, 2019. - Rhythm Strip Rhythm Strip: Sinus Rhythm Rate: 75 Ectopy: None - Medical Decision Making Patient's history and physical is consistent with exacerbation of chronic bronchitis and COPD. Will obtain chest x-ray to evaluate for pneumothorax and infiltrate. She was treated with DuoNeb, albuterol and prednisone. Will review home-going instructions from January 08. If she was not placed on antibiotic will place on short course of antibiotic as well as burst of prednisone. Since vital signs are unremarkable. She improved with treatment. Will discharge with burst of prednisone and because she has colored sputum will place on doxycycline. She is to follow-up with her primary care physician and recommend referral to general passenger agent. ED Disposition - Plan for ED Patient: Disposition: Home or Assisted Living Diagnosis: Obstructive chronic bronchitis with acute exacerbation Instructions: ED COPD Flare Prescriptions: Prednisone [Deltasone] 40 mg PO DAILY #10 tablet Doxycycline 100 mg PO BID #14 capsule Referrals: Jethro Goel [Primary Care Provider] - 3-5 Days Additional Instructions: [facility] to [facility] designated pharmacy [facility] choice.
--- NOTE | 2019-01-12 07:06 | ED.DCSUM_ITS ---
History of Present Illness Chief Complaint: Shortness of Breath Informant: Patient Onset: Yesterday Context: Gradual Onset Timing: Continuous Quality: Shortness of breath Location: home Current Severity: Mild Maximum Severity: Moderate Worsened by: Nothing Relieved by: Nothing Associated Symptoms: No associated symptoms Narrative: Patient is an elderly woman with history of COPD who was seen 3 days ago for shortness of breath. Work-up at that time was unremarkable. She was treated for COPD exacerbation. She denies fever, chills or night sweats. She denies ocular, visual auditory symptoms. She denies rhinorrhea, nasal congestion pos tnasal drip. She denies sore throat. She has a cough productive of green- colored sputum which is not abnormal for her. She apparently does not see a [facility] hcm consultant. She does not recall the last time she was on prednisone or a steroid inhaler. She denies history of PE or DVT. She denies leg pain, swelling discoloration. She does have varicose veins. She denies/has no VTE risk factors. She denies chest discomfort of any type. Prior similar symptoms: Yes Recent Illness/Hospitalization: Yes - Past Medical History (1) Vitamin B12 deficiency Status: Acute (2) Anxiety Status: Chronic (3) Bronchiectasis Status: Chronic (4) CVA (cerebral vascular accident) Status: Chronic (5) Chronic renal failure, stage 3 (moderate) Status: Chronic (6) Dysmetabolic syndrome Status: Chronic (7) GERD (gastroesophageal reflux disease) Status: Chronic (8) HLD (hyperlipidemia) Status: Chronic (9) HTN (hypertension) Status: Chronic (10) Multiple pulmonary nodules Status: Chronic (11) Tobacco abuse Status: Chronic (12) Urinary, incontinence, stress female Status: Chronic Past Medical History - Allergies and Home Meds Allergies/Adverse Reactions: Allergies No Known Allergies Allergy (Verified 12/28/18 06:02) Primary Care Physician: Jethro Goel [Primary Care Provider] - Prior records reviewed: Yes - ER record from 01/08/2019. Surgical History: noncontributory, - - Surgery for stress incontinence including a sling procedure Lives: Alone Smoking Status: Former smoker Alcohol: None Drugs: None - Family History Paternal Family History: Reports: - - prostate CA Maternal Family History: Reports: - - breast CA Review of Systems General: Denies: Chills, Fever, Sweats Eyes: Denies: Visual changes - bilaterally, Blurred Vision - bilaterally, Diplopia ENT: Denies: Bilateral ear pain, Rhinorrhea, Sore throat Cardiovascular: Denies: Chest pain, Palpitations Respiratory: Reports: Dyspnea, Cough, Sputum, Dyspnea on exertion. Denies: Orthopnea, Paroxysmal nocturnal dyspnea, -, - Gastrointestinal: Denies: Abdominal pain, Nausea, Vomiting, Diarrhea, Melena, Hematochezia Genitourinary: Denies: Dysuria, Hematuria, Frequency Musculoskeletal: Denies: Back pain, Extremity Pain Skin: Denies: Rash, Wounds Neurological: Denies: Headache, Weakness, Numbness Hematologic: Denies: Easy bruising Allergy: Denies: Uticaria, Swelling of the mouth Physical Exam Vital Signs/Narrative: Vital Signs Temp Pulse Resp BP Pulse Ox 01/12/19 06:21 97.5 F L 69 20 H 165/80 H 98 Inital Vital Signs reviewed: Yes General: Well nourished, Well developed, No Acute Distress Head: Normocephalic, Atraumatic Eyes: Perrl, EOMI ENT: Moist mucous membranes, No rhinorrhea Neck: Supple, Nontender Cardiovascular: Regular rate, Regular rhythm, No murmurs Respiratory: No distress, Chest nontender, Wheezing, Decreased Air Movement. Negative for: Retractions, Chest tenderness Abdomen: Soft, Nontender, Nondistended, Normal bowel sounds Back: Nontender, Normal Inspection Extremities: Nontender, No edema, - - There is no asymmetry, swelling, discoloration, leg vein distention, palpable cords or tenderness along the distribution of the deep venous system. There is evidence of varicosity. There is no evidence of superficial phlebitis. Skin: Normal color, No rash Neurological: Alert, Oriented x3, Cranial nerves II-XII grossly intact, Normal Strength, Normal Sensation, Normal Gait Psychological: Normal affect, Normal Mood Diagnostic/Tx/Re-eval Chest X-Ray - ED: 2 View, Read by ED Physician, Unchanged, Normal, Heart, Mediastinum, Bony Structures, No Acute Disease, Chronic Changes, - - Chest x-ray is unchanged from January 08, 2019. - Rhythm Strip Rhythm Strip: Sinus Rhythm Rate: 75 Ectopy: None - Medical Decision Making Patient's history and physical is consistent with exacerbation of chronic bronchitis and COPD. Will obtain chest x-ray to evaluate for pneumothorax and infiltrate. She was treated with DuoNeb, albuterol and prednisone. Will review home-going instructions from January 08. If she was not placed on antibiotic will p lace on short course of antibiotic as well as burst of prednisone. Since vital signs are unremarkable. She improved with treatment. Will discharge with burst of prednisone and because she has colored sputum will place on doxycycline. She is to follow-up with her primary care physician and recommend referral to [facility] hcm consultant. ED Disposition - Plan for ED Patient: Disposition: Home or Assisted Living Diagnosis: Obstructive chronic bronchitis with acute exacerbation Instructions: ED COPD Flare Prescriptions: Prednisone [Deltasone] 40 mg PO DAILY #10 tablet Doxycycline 100 mg PO BID #14 capsule Referrals: Jethro Goel [Primary Care Provider] - 3-5 Days Additional Instructions: [facility] to [facility] designated pharmacy of choice.
[2019-01-12 07:10] VITALS: PULSE 66; RESP 18; O2SAT 98
[2019-01-12] MEDS: Albuterol 2.5 MG/3 ML VIAL.NEB. INHALATION ×3 (07:10→07:25)
[2019-01-12] MEDS: Ipratropium/Albuterol Sulfate 3 ML AMPUL.NEB INHALATION (07:10)
[2019-01-12 07:25] VITALS: PULSE 72; RESP 18
[2019-01-12] MEDS: predniSONE 20 MG Tablet 60 MG PO (07:34)
--- NOTE | 2019-01-12 07:37 | RAD_ITS ---
STUDY: X-RAY CHEST REASON FOR EXAM: Female, 83 years old. Shortness of breath with dyspnea TECHNIQUE: PA and lateral views of the chest. COMPARISON: 01/08/2019 FINDINGS: There is hyperinflation of the lungs consistent with chronic obstructive lung disease (COPD). Lungs are clear. There is no demonstrated pleural abnormality. There is mild cardiac enlargement. Normal mediastinum and rasheed. Normal visualized pulmonary arteries. Normal visualized aortic arch and descending thoracic aorta. There are diffuse degenerative changes of the visualized thoracic spine. Normal visualized ribs, clavicles, and shoulders. There is no demonstrated abnormality of the visualized soft tissue structures of the upper abdomen. RAD/Chest PA and Lateral IMPRESSION: COPD without acute findings Electronically Signed: Deiudonne Cho DO at 8:28 EDT Tel , Service support ,
[2019-01-12 07:52] VITALS: BP 175/78; PULSE 89; RESP 18; O2SAT 93
== END 2019-01-12 07:56 | disposition home or self-care (01) ==
PROVIDERS: Emergency Provider Emergency Medicine; Family Provider Student in an Organized Health Care Education/Training Program; PCP Student in an Organized Health Care Education/Training Program
DX: J44.1 Chronic obstructive pulmonary disease with (acute) exacerbation (principal); I12.9 Hypertensive chronic kidney disease with stage 1 through stage 4 chronic kidney disease, or unspecified chronic kidney disease; N18.3 Chronic kidney disease, stage 3 (moderate); E78.5 Hyperlipidemia, unspecified; K21.9 Gastro-esophageal reflux disease without esophagitis; Z79.899 Other long term (current) drug therapy; Z87.891 Personal history of nicotine dependence; Z86.73 Personal history of transient ischemic attack (TIA), and cerebral infarction without residual deficits
CPT/HCPCS: 71046; 94640; 99284

== ENCOUNTER 2019-04-09 09:14 | Observation (INO) | payer MEDICARE, SELFPAY ==
[2019-04-09] VITALS (16 sets, daily range): BP systolic 133–153; BP diastolic 56–78; PULSE 70–90; RESP 14–18; TEMP 36.1–36.9; O2SAT 94–100; BMI 26.5; BMI 74.1; BMI 26.4
--- NOTE | 2019-04-09 09:18 | EKG12_ITS ---
Test Reason : SOB Blood Pressure : / mmHG Vent. Rate : 071 BPM Atrial Rate : 071 BPM P-R Int : 150 ms QRS Dur : 080 ms QT Int : 408 ms P-R-T Axes : 030 -11 042 degrees QTc Int : 443 ms Sinus rhythm with Premature atrial complexes Otherwise normal ECG Confirmed by MACO WEISS ([id number]), book editor FLORENTIN MORLEY ([id number]) on 04/13/2019 1:23:27 PM Referred By: Rosa M Gee Confirmed By:MACO WEISS
--- NOTE | 2019-04-09 09:18 | RAD_ITS ---
STUDY: X-RAY CHEST REASON FOR EXAM: Female, 84 years old. Increasing shortness of breath. History of COPD. TECHNIQUE: Single AP portable view of the chest. COMPARISON: Comparison is made with prior examination dated January 12, 2019. FINDINGS: EKG electrodes are seen. Hyperinflation. Scattered calcified granulomas. There is no demonstrated pleural abnormality. Normal size heart. Normal mediastinum and rasheed. Normal visualized pulmonary arteries. There is atherosclerotic calcification of the aortic arch with tortuosity. There are degenerative changes of the visualized thoracic spine. Normal visualized ribs, clavicles, and shoulders. Small hiatal hernia. RAD/Chest 1 View (Portable) IMPRESSION: Hyperinflation. No acute abnormality is seen. Electronically Signed: Kyle Stevens, at 9:43 EDT , Service support ,
[2019-04-09] MEDS: Ipratropium/Albuterol Sulfate 3 ML AMPUL.NEB INHALATION ×2 (09:32→10:14)
--- NOTE | 2019-04-09 09:34 | ED.DCSUM_ITS ---
History of Present Illness Chief Complaint: Shortness of Breath Informant: Patient Onset: Month(s) Timing: Intermittent Current Severity: Mild Narrative: Complains of episodic spells of shortness of breath that she has had for years, long history of COPD, no history of ME PE or DVT, she seen pulmonology cardiology a physician named Dr. Morelos in the [facility] system, she is on inhalers what sounds like Symbicort, she indicates her physicians are aware of the fact she has intermittent episodes of shortness of breath that did not respond to her home meds for the last few days she has had which she feels is an exacerbation with intermittent episodes of shortness of breath that are worse than her baseline. She has had no fever no cough no chest pain no abdominal pain no weight gain she is able to lay flat she is able to execute her daily activities at home just feels short of breath despite using her meds came in for evaluation Past Medical History - Allergies and Home Meds Allergies/Adverse Reactions: Allergies No Known Allergies Allergy (Verified 04/09/19 09:15) Primary Care Physician: Jethro Goel [Primary Care Provider] - Past Medical History: - - COPD and as above Surgical History: noncontributory, - - Surgery for stress incontinence including a sling procedure Smoking Status: Former smoker - Family History Paternal Family History: Reports: - - prostate CA Maternal Family History: Reports: - - breast CA Review of Systems General: Denies: Chills, Fever, Sweats Eyes: Denies: Visual changes - bilaterally, Diplopia ENT: Denies: Rhinorrhea, Sore throat Cardiovascular: Denies: Chest pain, Palpitations Respiratory: Reports: Orthopnea, - - Chronic intermittent shortness of breath. Denies: Dyspnea, Cough, Dyspnea on exertion Gastrointestinal: Denies: Abdominal pain, Nausea, Vomiting, Diarrhea, Melena, Hematochezia Genitourinary: Denies: Dysuria, Hematuria, Frequency Musculoskeletal: Denies: Back pain, Extremity Pain Skin: Denies: Rash, Wounds Neurological: Denies: Headache, Weakness, Numbness Physical Exam Vital Signs/Narrative: Vital Signs Temp Pulse Resp BP Pulse Ox 04/09/19 09:15 97.9 F 70 17 150/75 H 96 General: Well nourished, Well developed, No Acute Distress, - - She is in no distress speaking full sentences her pulse ox is 91% on room air her general physical exam cardiovascular lung and all the exam features are otherwise unremarkable see below Head: Normocephalic, Atraumatic Eyes: Perrl, EOMI ENT: Moist mucous membranes, No rhinorrhea Neck: Supple, Nontender Cardiovascular: Regular rate, Regular rhythm, No murmurs Respiratory: No distress, CTA bilaterally, Chest nontender Abdomen: Soft, Nontender, Nondistended, Normal bowel sounds Back: Nontender, Normal Inspection Extremities: Nontender, No edema Skin: Normal color, No rash Neurological: Alert, Oriented x3, Cranial nerves II-XII grossly intact, Normal Strength, Normal Sensation Psychological: Normal affect, Normal Mood Diagnostic/Tx/Re-eval - Medical Decision Making I had a long conversation with her clinically she looks well this is a chronic intermittent process she has had she is very frustrated dissatisfied with her outpatient management as she feels she should not be having intermittent spells of shortness of breath, she indicates she was seen by pulmonology and there was no further need to follow back up, indicates she was seen by cardiology similar at this time screening labs aerosols and will discuss with her primary care physicians in [facility] We did page the patient's outpatient providers Dr. Jethro Goel, spoke with Dr. Mckoy on-call agrees with admission, the patient's hemoglobin is 7 her creatinine is about 1.6 close to baseline, she does have history of chronic anemia she had a prior evaluation she indicates with scopes that showed no obvious cause for the anemia she recalls receiving intermittent transfusions most recently one year ago where she received 2 units of blood. Given all the above given her complaints of her COPD we have asked the hospital see her for the management admission and considering blood transfusion Admit stable Final impression Exacerbation of COPD, acute exacerbation of chronic anemia, renal insufficiency ED Disposition - Plan for ED Patient: Diagnosis: COPD exacerbation, Chronic anemia Referrals: Jethro Goel [Primary Care Provider] -
[2019-04-09] MEDS: MethylPREDNISolone 125 MG/2 ML Vial IV (10:00)
[2019-04-09 10:01] LABS: Absolute Lymphocyte Count 1.03 X10^3/uL (0.83-4.51); Absolute Neutrophil Count 4.2 X10^3/uL (2.0-7.7); Basophil# 0.03 X10^3/uL; Basophil% 0.5 % (0-1); Eosinophils% 1.7 % (0-5); Hematocrit 24.3 % (37-47); Hemoglobin 7.4 g/dL (12.0-15.0); Lymphocyte # 1.03 X10^3/ul (4.0); Lymphocyte % 17.6 % (19-41); Mean Corp Hgb Conc 30.5 g/dL (32-36); Mean Corpuscular Hgb 24.3 pg (27.0-32.0); Mean Corpuscular Volume 79.7 fL (81-99); Mean Platelet Vol. 9.8 fl (6.2-12.0); Monocyte# 0.42 X10^3/uL; Monocyte% 7.2 % (0-10); NRBC Flagged by Analyzer 0 % (0-5); Neutrophil # 4.24 X10^3/uL (2.7-7.7); Neutrophil % 72.7 % (47-70); Platelet Count 249 K/mm3 (150-450); RBC Distribution Width SD 52.6 fl (35.1-43.9); Red Blood Count 3.05 M/mm3 (4.2-5.4); White Blood Count 5.8 K/mm3 (4.4-11.0)
[2019-04-09 10:18] LABS: Anion Gap 6 (5-15); BUN 14 mg/dL (7-18); BUN/Creat Ratio 9.2 RATIO (10-20); Calcium,Total 9.4 mg/dL (8.5-10.1); Chloride 105 mmol/L (98-107); Creatinine, Serum 1.52 mg/dL (0.55-1.02); EST Glomerular Filtration Rate 35 mL/min (>60); Est Glom Filt Rate - Afr Amer 42 mL/min (>60); Estimated Creatinine Clearance 25.79 ml/min; Glucose 112 mg/dL (74-106); Potassium 3.6 mmol/L (3.5-5.1); Sodium Level 137 mmol/L (136-145)
[2019-04-09 10:30] LABS: BNP,B-Type NATRIURETIC PEPTIDE 96.4 pg/mL (0-100)
--- NOTE | 2019-04-09 11:43 | NURSING ---
DR SAMUELS FOR ER DOC
--- NOTE | 2019-04-09 11:55 | NURSING ---
MED SURG SOB, SEVERE ANEMIA PAINTSIL
--- NOTE | 2019-04-09 11:59 | CM.ED ---
Social Work Consult: Palliative Care Informant: Self Referral. Completed Palliative Care screening tool. Patient scoring a 4. Met with patient in room. This director of social work introduced self as well as director of social work role in the ED. This director of social work explaining Palliative Care resource. Patient unsure about resource, but is agreeable to this director of social work providing patient with information on self referral. This director of social work providing patient with Palliative Care tri-fold. Patient thanking this director of social work. Identified no further needs. Patient stating to live alone and to have support from family. Lily Vaca MSW, [place]
--- NOTE | 2019-04-09 12:08 | PCM.HP.STD ---
Problem List (1) Severe anemia Status: Acute (2) HTN (hypertension) Status: Chronic (3) GERD (gastroesophageal reflux disease) Status: Chronic Qualifiers: Esophagitis presence: esophagitis presence not specified Qualified Code(s): K21.9 - Gastro-esophageal reflux disease without esophagitis (4) HLD (hyperlipidemia) Status: Chronic Qualifiers: Hyperlipidemia type: unspecified Qualified Code(s): E78.5 - Hyperlipidemia, unspecified History of Present Illness Date of Admission: 04/09/19 Chief Complaint: Dyspnea on exertion - on-going for 1 month The patient is a 84 year old F with past medical history of hypertension, GERD, COPD, not on oxygen who comes in with progressive shortness of breath ongoing for about 1 month. Patient denied any accompanying chest pain or dizziness or leg swelling orthopnea or PND. She is not on oxygen, but feels as very fatigued with exertion. Denied any hematochezia or melena or hemoptysis. Vitals in the ED showed temperature of 97.9F, heart rate 70, blood pressure 150/75, respiratory 17, SPO2 is 96% on room air. Admitting blood work showed WBC count of 5.8, hemoglobin 7.4, platelet count 249, sodium is 137, potassium 3.6, chloride 105, bicarbonate 26, BUN 14, creatinine 1.52, troponins was negative, BNP was 96.4. EKG shows normal sinus rhythm, no acute ST-T changes. Chest X-ray was suggestive of COPD without any infiltrates. Past Medical History Past Medical History (Chronic Problems): Chronic Problems (Last Updated 12/18/18 @ 10:49 by Josey Farah) COPD exacerbation (Chronic) Chronic anemia (Chronic) Disorder of bone and cartilage (Chronic) Dysmetabolic syndrome (Chronic) Lichen sclerosus (Chronic) Hypercholesteremia (Chronic) Multiple pulmonary nodules (Chronic) Osteopenia (Chronic) Obesity (Chronic) Fatigue (Chronic) Diverticula of colon (Chronic) CVA (cerebral vascular accident) (Chronic) Anemia (Chronic) Hypertrophy of nasal turbinates (Chronic) Chronic renal failure, stage 3 (moderate) (Chronic) Urinary, incontinence, stress female (Chronic) Bronchiectasis (Chronic) Anxiety (Chronic) HTN (hypertension) (Chronic) GERD (gastroesophageal reflux disease) (Chronic) Tobacco abuse (Chronic) HLD (hyperlipidemia) (Chronic) Medical History: Medical History (Last Updated 12/18/18 @ 10:49 by Josey Farah) Disorder of bone and cartilage (Chronic) M89.9, M94.9 Dysmetabolic syndrome (Chronic) E88.81 Lichen sclerosus (Chronic) L90.0 Hypercholesteremia (Chronic) E78.00 Multiple pulmonary nodules (Chronic) R91.8 Osteopenia (Chronic) M85.80 Seborrheic keratoses (Acute) L82.1 Vitamin B12 deficiency (Acute) E53.8 Vitamin D deficiency (Acute) E55.9 Obesity (Chronic) E66.9 Fatigue (Chronic) R53.83 Diverticula of colon (Chronic) K57.30 CVA (cerebral vascular accident) (Chronic) I63.9 Anemia (Chronic) D64.9 Hypertrophy of nasal turbinates (Chronic) J34.3 Chronic renal failure, stage 3 (moderate) (Chronic) N18.3 Urinary, incontinence, stress female (Chronic) N39.3 Bronchiectasis (Chronic) J47.9 Anxiety (Chronic) F41.9 HTN (hypertension) (Chronic) I10 GERD (gastroesophageal reflux disease) (Chronic) K21.9 Tobacco abuse (Chronic) Z72.0 Pneumonia (Acute) J18.9 HLD (hyperlipidemia) (Chronic) E78.5 Allergies No Known Allergies Allergy (Verified 04/09/19 09:15) Home Medications: Ambulatory Orders Medication Instructions Recorded Albuterol Inhaler [Ventolin Hfa] 1 - 2 puff INHALATION Q4H PRN PRN 11/28/17 #1 inhaler Fluticasone/Vilanterol [Breo 1 ea IH DAILY 02/11/18 Ellipta 100-25 Mcg INH] Albuterol Aerosols [Ventolin 2.5 mg INHALATION Q4H PRN #25 vial 11/16/18 Aerosols] pantoprazole 20 mg tablet,delayed 20 mg PO DAILY 12/18/18 release Pravastatin [Pravachol] 20 mg PO QHS 01/12/19 Amlodipine Besylate 5 mg PO DAILY 04/09/19 Paroxetine HCl 10 mg PO DAILY 04/09/19 Surgical History: - - Surgery for stress incontinence including a sling procedure, status post recent nasal surgery Psychiatric History: Anxiety 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 Denies: Anorexia, Chills, Fever, Malaise, Weakness, Weight Change Eyes: Denies: Blurred vision, Cataracts, Conjunctivae Inflammation HEENT: Denies: Difficulty Hearing, Difficulty Swallowing, Head Aches, Hearing Changes, Sinus Congestion, Sinus Drainage Cardiovascular: Denies: Chest Pain, Claudication, Orthopnea, Palpitations Respiratory: Reports: Shortness of Breath, Shortness of breath upon exertion. Denies: Cough, Hemoptysis, Shortness of breath at rest, Sputum production Gastrointestinal: Denies: Abdominal Pain, Constipation, Hematemesis, Hematochezia, Nausea, Vomiting Genitourinary: Denies: Dysuria Musculoskeletal: Denies: Joint Pain, Joint stiffness, Joint swelling, Joint Tenderness Skin: Denies: Rash, Wounds Neurological: Denies: Numbness, Tingling, Focal weakness Psychiatric: Denies: Anxiety, Depression, Homicidal Ideations, Suicidal Ideations Hematologic/ Lymphatic: Denies: Easy Bruising, Easy Bleeding VTE Information - Inpt Only VTE Present on Admission: No VTE Pharm Prophylaxis ordered?: Yes Patient Problems: Active and Suspected Problems (Last Updated 12/18/18 @ 10:49 by Josey Farah) Severe anemia (Acute) - Physical Exam General: Alert, Oriented x3, Cooperative, No apparent distress HEENT: Atraumatic, PERRLA, EOMI, Normocephalic Oral: Moist Mucosa Neck: Supple Lungs: Clear to auscultation, Normal air movement Cardiovascular: Regular rate, Regular Rhythm, Normal S1, Normal S2, No murmurs Abdomen: Bowel Sounds Present, Soft, Non Tender, Non-Distended, No Hepato-splenomegaly Extremities: No edema Skin: No rashes, No breakdown Musculoskeletal: No Tenderness to Palpation of Joints or Extremities Lymphatic: No Cervical, Supraclavicular, or Inguinal Adenopathy Neurological: Cranial nerves II-XII grossly intact, Neuro grossly intact Psych/Mental Status: Normal Affect, Appropriate Vital Signs Temp Pulse Resp BP Pulse Ox 97.9 F 80 14 148/56 H 96 04/09/19 09:15 04/09/19 11:27 04/09/19 11:27 04/09/19 11:27 04/09/19 11:27 Oxygen Delivery Method Room Air Weight: 74.5 kg Body Mass Index (BMI) 26.5 Laboratory Tests Past 24 Hrs 04/09/19 04/09/19 04/09/19 09:54 09:54 09:54 WBC 5.8 RBC 3.05 L Hgb 7.4 L Hct 24.3 L MCV 79.7 L MCH 24.3 L MCHC 30.5 L RDW Std Deviation 52.6 H RDW Coeff of Jung 18.0 H Plt Count 249 MPV 9.8 Immature Gran % (Auto) 0.300 Neut % (Auto) 72.7 H Lymph % (Auto) 17.6 L [place] % (Auto) 7.2 Eos % (Auto) 1.7 Baso % (Auto) 0.5 Absolute Neuts (auto) 4.2 Absolute Lymphs (auto) 1.03 Nucleated RBC % 0 Sodium 137 Potassium 3.6 Chloride 105 Carbon Dioxide 26.0 Anion Gap 6 BUN 14 Creatinine 1.52 H Estim Creat Clear Calc 25.79 Est GFR (MDRD) Af Amer 42 L Est GFR (MDRD) Non-Af 35 L BUN/Creatinine Ratio 9.2 L Glucose 112 H Calcium 9.4 Troponin I < 0.015 B-Natriuretic Peptide 96.4 Assessment/Plan All Active Problems (Last Updated 12/18/18 @ 10:49 by Josey Farah) Severe anemia (Acute) Seborrheic keratoses (Acute) Vitamin B12 deficiency (Acute) Vitamin D deficiency (Acute) Pneumonia (Acute) 84 year old F with past medical history of hypertension, GERD, COPD, not on oxygen, who comes in with progressive shortness of breath ongoing for about 1 month. 1. Severe symptomatic anemia; drop in hemoglobin from 12 to 7.4, no active bleeding seen, no melena or hematochezia History of EGD in [address] 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 pylori Plan: Admit to [facility], general surgery consulted-discussed with Dr. Valdes, IV PPI, type and crossmatch and transfuse 1 unit of packed RBC Clear liquid diet, possible colonoscopy in a.m., will hold Paxil for now 2. COPD, not in acute exacerbation, continue with PRN breathing treatments 3. Hypertension, on amlodipine, will continue with holding parameters 4. DVT PPx- SCDs Code Visit Inpatient E&M: 88159 Init Hosp L3
--- NOTE | 2019-04-09 14:41 | CON.PCM_ITS ---
Reason for Consult Date of Consultation: 04/09/19 Reason for Consultation: anemia History of Present Illness: The patient is a 84 year old F with a history of progressive shortness of breath and fatigue. Patient has history of COPD with chronic shortness of breath, but notes over the last few days this acutely worsened to where she felt like I could not breathe at all to the point of feeling panicked, prompting her to present to the emergency department. Patient was admitted for further evaluation. Laboratory studies demonstrated hemoglobin of 7.4 and creatinine of 1.6. Patient notes a history of chronic anemia in the past of unclear etiology, states has required intermittent blood transfusions. Patient underwent upper endoscopy in [address] Ferraro with significant finding of H. pylori infection. She had completed initial therapy for this but a follow-up breath test was still positive for infection. Per phone records in [facility] multiple attempts were made to contact patient about a second course of treatment. Patient states she did complete the antibiotic and treatment therapy prescribed for this, but does not appear to have had another follow-up breath test since that time. She denies any abdominal pain, reflux or dysphagia. She denies any blood in stools or black tarry stools. General surgery was consulted for endoscopy to evaluate for possible GI source of blood loss. Patient's past medical history is significant for chronic renal failure, hyp ertension, hyperlipidemia, COPD and chronic anemia as noted above, history of CVA. She denies any problems with sedation in the past. Past Medical History Past Medical History (Chronic Problems): Chronic Problems (Last Updated 12/18/18 @ 10:49 by Josey Farah) COPD exacerbation (Chronic) Chronic anemia (Chronic) Disorder of bone and cartilage (Chronic) Dysmetabolic syndrome (Chronic) Lichen sclerosus (Chronic) Hypercholesteremia (Chronic) Multiple pulmonary nodules (Chronic) Osteopenia (Chronic) Obesity (Chronic) Fatigue (Chronic) Diverticula of colon (Chronic) CVA (cerebral vascular accident) (Chronic) Anemia (Chronic) Hypertrophy of nasal turbinates (Chronic) Chronic renal failure, stage 3 (moderate) (Chronic) Urinary, incontinence, stress female (Chronic) Bronchiectasis (Chronic) Anxiety (Chronic) HTN (hypertension) (Chronic) GERD (gastroesophageal reflux disease) (Chronic) Tobacco abuse (Chronic) HLD (hyperlipidemia) (Chronic) Medical History: Medical History (Last Updated 12/18/18 @ 10:49 by Josey Farah) Disorder of bone and cartilage (Chronic) M89.9, M94.9 Dysmetabolic syndrome (Chronic) E88.81 Lichen sclerosus (Chronic) L90.0 Hypercholesteremia (Chronic) E78.00 Multiple pulmonary nodules (Chronic) R91.8 Osteopenia (Chronic) M85.80 Seborrheic keratoses (Acute) L82.1 Vitamin B12 deficiency (Acute) E53.8 Vitamin D deficiency (Acute) E55.9 Obesity (Chronic) E66.9 Fatigue (Chronic) R53.83 Diverticula of colon (Chronic) K57.30 CVA (cerebral vascular accident) (Chronic) I63.9 Anemia (Chronic) D64.9 Hypertrophy of nasal turbinates (Chronic) J34.3 Chronic renal failure, stage 3 (moderate) (Chronic) N18.3 Urinary, incontinence, stress female (Chronic) N39.3 Bronchiectasis (Chronic) J47.9 Anxiety (Chronic) F41.9 HTN (hypertension) (Chronic) I10 GERD (gastroesophageal reflux disease) (Chronic) K21.9 Tobacco abuse (Chronic) Z72.0 Pneumonia (Acute) J18.9 HLD (hyperlipidemia) (Chronic) E78.5 Allergies lisinopril Adverse Reaction (Verified 04/09/19 13:06) Swelling Home Medications: Ambulatory Orders Medication Instructions Recorded Albuterol Inhaler [Ventolin Hfa] 1 - 2 puff INHALATION Q4H PRN PRN 11/28/17 #1 inhaler Fluticasone/Vilanterol [Breo 1 ea IH DAILY 02/11/18 Ellipta 100-25 Mcg INH] Albuterol Aerosols [Ventolin 2.5 mg INHALATION Q4H PRN #25 vial 11/16/18 Aerosols] pantoprazole 20 mg tablet,delayed 20 mg PO DAILY 12/18/18 release Pravastatin [Pravachol] 20 mg PO QHS 01/12/19 Amlodipine Besylate 5 mg PO DAILY 04/09/19 Paroxetine HCl 10 mg PO DAILY 04/09/19 Surgical History: - - Surgery for stress incontinence including a sling procedure, status post recent nasal surgery Psychiatric History: Anxiety 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 Denies: Cough Gastrointestinal: Denies: Abdominal Pain, Vomiting Skin: Denies: Skin Changes Psychiatric: Reports: Anxiety Hematologic/ Lymphatic: Reports: Anemia Patient Problems: Active and Suspected Problems (Last Updated 12/18/18 @ 10:49 by Josey Farah) Severe anemia (Acute) - Physical Exam General: Alert, Oriented x3, Cooperative, No apparent distress, Well developed, Well nourished HEENT: Atraumatic, PERRLA Oral: Moist Mucosa Neck: Supple Lungs: Clear to auscultation, Normal air movement Cardiovascular: Regular rate, Regular Rhythm Abdomen: Soft, Non Tender, Non-Distended Extremities: No clubbing, No cyanosis, No edema Skin: No rashes, No breakdown Musculoskeletal: No Tenderness to Palpation of Joints or Extremities Psych/Mental Status: Normal Affect Vital Signs Temp Pulse Resp BP Pulse Ox 98.5 F 75 18 153/59 H 99 04/09/19 12:49 04/09/19 12:49 04/09/19 12:49 04/09/19 12:49 04/09/19 12:49 Oxygen Delivery Method Room Air Weight: 163 lb 5.8 oz Body Mass Index (BMI) 26.4 Laboratory Tests Past 24 Hrs 04/09/19 04/09/19 04/09/19 09:54 09:54 09:54 WBC 5.8 RBC 3.05 L Hgb 7.4 L Hct 24.3 L MCV 79.7 L MCH 24.3 L MCHC 30.5 L RDW Std Deviation 52.6 H RDW Coeff of Jung 18.0 H Plt Count 249 MPV 9.8 Immature Gran % (Auto) 0.300 Neut % (Auto) 72.7 H Lymph % (Auto) 17.6 L [place] % (Auto) 7.2 Eos % (Auto) 1.7 Baso % (Auto) 0.5 Absolute Neuts (auto) 4.2 Absolute Lymphs (auto) 1.03 Nucleated RBC % 0 Sodium 137 Potassium 3.6 Chloride 105 Carbon Dioxide 26.0 Anion Gap 6 BUN 14 Creatinine 1.52 H Estim Creat Clear Calc 25.79 Est GFR (MDRD) Af Amer 42 L Est GFR (MDRD) Non-Af 35 L BUN/Creatinine Ratio 9.2 L Glucose 112 H Calcium 9.4 Troponin I < 0.015 B-Natriuretic Peptide 96.4 Blood Type Antibody Screen Crossmatch 04/09/19 12:55 WBC RBC Hgb Hct MCV MCH MCHC RDW Std Deviation RDW Coeff of Jung Plt Count MPV Immature Gran % (Auto) Neut % (Auto) Lymph % (Auto) Nicol[place] % (Auto) Eos % (Auto) Baso % (Auto) Absolute Neuts (auto) Absolute Lymphs (auto) Nucleated RBC % Sodium Potassium Chloride Carbon Dioxide Anion Gap BUN Creatinine Estim Creat Clear Calc Est GFR (MDRD) Af Amer Est GFR (MDRD) Non-Af BUN/Creatinine Ratio Glucose Calcium Troponin I B-Natriuretic Peptide Blood Type Pending Antibody Screen Pending Crossmatch See Detail Assessment/Plan All Active Problems (Last Updated 12/18/18 @ 10:49 by Josey Farah) Severe anemia (Acute) Seborrheic keratoses (Acute) Vitamin B12 deficiency (Acute) Vitamin D deficiency (Acute) Pneumonia (Acute) Chronic anemia with acute exacerbation Chronic kidney disease history of H. pylori infection, ?resistant H. pylori I have reviewed my findings with Dr. Valdes, who will also independently evaluate the patient and has participated in development of the following plan. Patient to remain on clear liquid diet and complete a bowel prep tonight. Reviewed importance of good hydration with bowel preparation. Will plan for upper and lower endoscopy to be performed by Dr. Valdes tomorrow. The proposed technique, risks and benefits were discussed with the patient. The patient agreed to proceed with endoscopy.
[2019-04-09] MEDS: 0.9% NaCl Peripheral Flush Adult/Peds IV ×3 (15:29→21:56)
[2019-04-09] MEDS: Budesonide Respules 0.5 MG/2 ML AMPUL.NEB. INHALATION (16:35)
[2019-04-09] MEDS: Electrolyte Solution/Peg's 4000 ML 2000 ML PO (19:27)
[2019-04-09] MEDS: Pravastatin 20 MG Tablet PO (21:52)
[2019-04-09] MEDS: 0.9% NaCl IVPB Med Flush (250 mL) 15 ML IV (21:52)
[2019-04-09] MEDS: Ensure Clear 120 ML Liquid PO (21:52)
[2019-04-10] VITALS (13 sets, daily range): BP systolic 111–164; BP diastolic 67–87; PULSE 58–81; RESP 16–18; TEMP 36.2–36.7; O2SAT 93–100; BMI 25.7
[2019-04-10] MEDS: Electrolyte Solution/Peg's 4000 ML 2000 ML PO (06:02)
[2019-04-10 06:32] LABS: Absolute Lymphocyte Count 1.13 X10^3/uL (0.83-4.51); Absolute Neutrophil Count 5.6 X10^3/uL (2.0-7.7); Basophil# 0.01 X10^3/uL; Basophil% 0.1 % (0-1); Eosinophil# 0.01 X10^3/uL; Eosinophils% 0.1 % (0-5); Hematocrit 28.3 % (37-47); Hemoglobin 8.9 g/dL (12.0-15.0); Lymphocyte # 1.13 X10^3/ul (4.0); Lymphocyte % 15.2 % (19-41); Mean Corp Hgb Conc 31.4 g/dL (32-36); Mean Corpuscular Hgb 25.6 pg (27.0-32.0); Mean Corpuscular Volume 81.3 fL (81-99); Mean Platelet Vol. 10.1 fl (6.2-12.0); Monocyte# 0.67 X10^3/uL; NRBC Flagged by Analyzer 0 % (0-5); Neutrophil # 5.55 X10^3/uL (2.7-7.7); Neutrophil % 74.9 % (47-70); Platelet Count 265 K/mm3 (150-450); RBC Distribution Width CV 17.5 % (11.6-14.6); RBC Distribution Width SD 51.3 fl (35.1-43.9); Red Blood Count 3.48 M/mm3 (4.2-5.4); White Blood Count 7.4 K/mm3 (4.4-11.0)
[2019-04-10 06:44] LABS: Partial Thromboplast Time 25.1 Seconds (24.1-36.2)
[2019-04-10 06:48] LABS: Anion Gap 4 (5-15); BUN 10 mg/dL (7-18); BUN/Creat Ratio 8.1 RATIO (10-20); Calcium,Total 9.5 mg/dL (8.5-10.1); Chloride 109 mmol/L (98-107); Creatinine, Serum 1.24 mg/dL (0.55-1.02); EST Glomerular Filtration Rate 44 mL/min (>60); Est Glom Filt Rate - Afr Amer 53 mL/min (>60); Estimated Creatinine Clearance 31.62 ml/min; Glucose 104 mg/dL (74-106); Potassium 3.9 mmol/L (3.5-5.1); Sodium Level 142 mmol/L (136-145)
--- NOTE | 2019-04-10 07:29 | PCM.PN.HOSP ---
Patient Problems: Active and Suspected Problems (Last Updated 12/18/18 @ 10:49 by Josey Farah) Severe anemia (Acute) Subjective: Patient was seen and examined. She feels much improved. No more short of breath. She was transfused 1 unit of packed RBC yesterday. She is going for EGD and colonoscopy by general surgery. Objective: Physical Exam General: Alert, Oriented x3, Cooperative, No apparent distress HEENT: Atraumatic, PERRLA, EOMI, Normocephalic Oral: Moist Mucosa Neck: Supple Lungs: Clear to auscultation, Normal air movement Cardiovascular: Regular rate, Regular Rhythm, Normal S1, Normal S2, No murmurs Abdomen: Bowel Sounds Present, Soft, Non Tender, Non-Distended, No Hepato-splenomegaly Extremities: No edema Skin: No rashes, No breakdown Musculoskeletal: No Tenderness to Palpation of Joints or Extremities Lymphatic: No Cervical, Supraclavicular, or Inguinal Adenopathy Neurological: Cranial nerves II-XII grossly intact, Neuro grossly intact Psych/Mental Status: Normal Affect, Appropriate Vitals/I&O's: Vital Signs Temp Pulse Resp BP Pulse Ox 97.7 F L 61 18 137/69 H 100 04/10/19 03:20 04/10/19 03:20 04/10/19 03:20 04/10/19 03:20 04/10/19 03:20 Oxygen Flow Rate (L/min) 2 Oxygen Delivery Method Nasal Cannula Weight: 72.5 kg Body Mass Index (BMI) 26.4 Intake and Output for Last 24 Hours 04/08/19 04/09/19 04/10/19 23:59 23:59 23:59 Intake Total 1904 / 3871 2967 / 2967 Output Total 1100 / 2300 1200 / 1200 Balance 804 / 1571 1767 / 1767 Microbiology Past 72 Hours 04/09/19 20:25 Stool Stool Occult Blood (SHY) - Final Laboratory Results 04/09/19 09:54: WBC 5.8, RBC 3.05 L, Hgb 7.4 L, Hct 24.3 L, MCV 79.7 L, MCH 24.3 L, MCHC 30.5 L, RDW Std Deviation 52.6 H, RDW Coeff of Jung 18.0 H, Plt Count 249, MPV 9.8, Immature Gran % (Auto) 0.300, Neut % (Auto) 72.7 H, Lymph % (Auto) 17.6 L, [place] % (Auto) 7.2, Eos % (Auto) 1.7, Baso % (Auto) 0.5, Absolute Neuts (auto) 4.2, Absolute Lymphs (auto) 1.03, Nucleated RBC % 0 04/09/19 09:54: Sodium 137, Potassium 3.6, Chloride 105, Carbon Dioxide 26.0, Anion Gap 6, BUN 14, Creatinine 1.52 H, Estim Creat Clear Calc 25.79, Est GFR (MDRD) Af Amer 42 L, Est GFR (MDRD) Non-Af 35 L, BUN/Creatinine Ratio 9.2 L, Glucose 112 H, Calcium 9.4, Troponin I < 0.015 04/09/19 09:54: B-Natriuretic Peptide 96.4 04/09/19 12:55: Blood Type O POSITIVE, Antibody Screen NEGATIVE, Crossmatch See Detail 04/10/19 06:15: WBC 7.4, RBC 3.48 L, Hgb 8.9 L, Hct 28.3 L, MCV 81.3, MCH 25.6 L, MCHC 31.4 L, RDW Std Deviation 51.3 H, RDW Coeff of Jung 17.5 H, Plt Count 265, MPV 10.1, Immature Gran % (Auto) 0.700, Neut % (Auto) 74.9 H, Lymph % (Auto) 15.2 L, [place] % (Auto) 9.0, Eos % (Auto) 0.1, Baso % (Auto) 0.1, Absolute Neuts (auto) 5.6, Absolute Lymphs (auto) 1.13, Nucleated RBC % 0 04/10/19 06:15: Sodium 142, Potassium 3.9, Chloride 109 H, Carbon Dioxide 29.0, Anion Gap 4 L, BUN 10, Creatinine 1.24 H, Estim Creat Clear Calc 31.62, Est GFR (MDRD) Af Amer 53 L, Est GFR (MDRD) Non-Af 44 L, BUN/Creatinine Ratio 8.1 L, Glucose 104, Calcium 9.5 04/10/19 06:15: PT 13.0, INR 1.0, APTT 25.1 Current Medications Acetaminophen (Tylenol) 650 mg PO Q6H PRN PRN PRN Reason: Mild Pain (1-3)/Temp > 100.7 F Al Hydroxide/Mg Hydroxide (Mylanta Ii) 30 ml PO Q6H PRN PRN PRN Reason: Gastric Burning Albuterol Sulfate (Ventolin Aerosols) 2.5 mg INHALATION Q2H PRN PRN PRN Reason: Shortness of Breath/Wheezing Amlodipine Besylate (Norvasc) 5 mg PO DAILY ENEDELIA Budesonide (Pulmicort Aerosol) 0.5 mg INHALATION Q12H.RT [facility] Last Admin: 04/09/19 16:35 Dose: 0.5 mg Documented by: Cholecalciferol (Vitamin D) 5,000 unit PO DAILY ENEDELIA Pantoprazole Sodium 40 mg/ (Sodium Chloride) 110 mls @ 330 mls/hr IV Q12 [facility] Last Admin: 04/09/19 21:52 Dose: 330 mls/hr Documented by: Sodium Chloride () 250 mls @ 15 mls/hr IV .[id number] PRN PRN Reason: SALINE FLUSH Last Admin: 04/09/19 21:52 Dose: 15 mls/hr Documented by: Melatonin (Melatonin) 3 mg PO QHS PRN PRN PRN Reason: INSOMNIA Nitroglycerin (Nitrostat) 0.4 mg SUBLINGUAL Q5M PRN PRN Reason: CARDIAC/CHEST PAIN Nutritional Formula (Lactose Free) (Ensure Clear) 120 ml PO 4X/DAY [facility] Last Admin: 04/09/19 21:52 Dose: 120 ml Documented by: Oxycodone HCl (Oxyir) 5 mg PO Q4H PRN PRN PRN Reason: Severe pain (7-10/10) Pravastatin Sodium (Pravachol) 20 mg PO QHS [facility] Last Admin: 04/09/19 21:52 Dose: 20 mg Documented by: Sodium Chloride () 10 - 40 ml IV UD PRN PRN Reason: SALINE FLUSH Last Admin: 04/09/19 21:56 Dose: 20 ml Documented by: Medical Necessity - Tobacco Use Smoking Status: Former smoker Assessment/Plan All Active Problems (Last Updated 12/18/18 @ 10:49 by Josey Farah) Severe anemia (Acute) Seborrheic keratoses (Acute) Vitamin B12 deficiency (Acute) Vitamin D deficiency (Acute) Pneumonia (Acute) 84 year old F with past medical history of hypertension, GERD, COPD, not on oxygen, who comes in with progressive shortness of breath ongoing for about 1 month. 1. Severe symptomatic anemia, status post 1 unit of packed RBCs, repeat hemoglobin is 8.9 No active bleeding seen, no melena or hematochezia 2. Possible GI bleed , h/o H. pylori gastritis, EGD in [address] 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 pylori, treated Results of urea breath testing in [facility] system shows persistent H . Pylori, unclear if patient treated herself again Patient does not remember if she had Bismuth quadruple treatment afterwards. Going for EGD/colonoscopy, ID consult for resistant H. Pylori, will await recommendations. 3. COPD, not in acute exacerbation, continue with PRN breathing treatments 4. Hypertension, on amlodipine, will continue with holding parameters 5. DVT PPx- SCDs Code Visit Inpatient E&M: 42179 Subs Hosp L2
[2019-04-10] MEDS: Budesonide Respules 0.5 MG/2 ML AMPUL.NEB. INHALATION (07:36)
[2019-04-10] MEDS: amLODIPine 5 MG Tablet PO (09:24)
[2019-04-10] MEDS: Menthol/Lanolin/Calamine/Znox 113 GM Tube 1 APPLIC TOPICAL (10:27)
[2019-04-10] MEDS: 0.9% NaCl Peripheral Flush Adult/Peds IV (10:28)
--- NOTE | 2019-04-10 10:40 | CASEMGMT ---
GILES CAMACHO Face to Face with patient for initial transition planning/care coordination assessment. RN JANICE introduced self and role at [facility]. Patient lying in bed, alert and oriented. Patient willing to participate in assessment and is able to answer all questions appropriately. Care providers, pharmacy, and demographics verified. Patient wishes to discharge home, denies need for home health at this time. Patient states she has no further needs or concerns at this time. CM to follow for discharge planning needs that may arise. PCP: Amando Specialists: None Preferred Pharmacy: [facility] Insurance: [facility] Prescription Benefit: yes Living Will/HPOA: None LNOK: Son Living Arrangements: Patient lives with son apartment maintenance who is a electronic commerce specialist. Patient lives in first floor apartment with no steps to enter. Transportation: Patient uses public transportation DME/HHC: Patient denies DME and previous HHC. Disposition Plan: Patient to discharge home with family support and follow-up plans in place. Suzy RIVERO, RN, CM
--- NOTE | 2019-04-10 11:06 | NURSING ---
Patient off unit to AC at this time.
--- NOTE | 2019-04-10 12:32 | OP.ENDO_ITS ---
04/10/2019 Jethro Goel Re : Upper GI endoscopy procedure for Ivan Hernandez Dear Amando This procedure was performed on Wednesday, April 10, 2019. My impressions and recommendations are as follows: Impressions : - Normal first portion of the duodenum and second portion of the duodenum. - Medium-sized hiatal hernia - sliding hiatal hernia - 3-4 cm - Biopsies were taken with a cold forceps for Helicobacter pylori testing. Recommendations : - Return patient to hospital bone. - Continue present medications. My findings are described in the full procedure note, which is enclosed. If I can be of further assistance, please feel free to contact me at Doctor phone number(s): , Work: . Sincerely, MD Carmina Herring MD 04/10/2019 12:32:13 PM This report has been signed electronically.
--- NOTE | 2019-04-10 12:35 | OP.ENDO_ITS ---
04/10/2019 Jethro Goel Re : Colonoscopy procedure for Ivan Hernandez Dear Amando This procedure was performed on Wednesday, April 10, 2019. My impressions and recommendations are as follows: Impressions : - Diverticulosis in the sigmoid colon. - Non-bleeding internal hemorrhoids. - No specimens collected. Recommendations : - Return patient to hospital bone. - No recommendation at this time regarding repeat colonoscopy due to age. - Continue present medications. My findings are described in the full procedure note, which is enclosed. If I can be of further assistance, please feel free to contact me at Doctor phone number(s): , Work: . Sincerely, MD Carmina Herring MD 04/10/2019 12:35:42 PM This report has been signed electronically.
[2019-04-10] MEDS: oxyCODONE 5 MG Tablet PO (13:09)
--- NOTE | 2019-04-10 14:14 | PCM.DC ---
- Discharge Diagnoses Current Active Problems: Current Active and Chronic Problems (Last Updated 12/18/18 @ 10:49 by Josey Farah) COPD exacerbation (Chronic) Chronic anemia (Chronic) Severe anemia (Acute) Reason(s) for Visit for Discharge Instructions: Shortness of breath, severe anemia You will use the following diet at home:: Regular Your food should be the consistency of: Regular Your liquids should be the consistency of: Regular/Thin Discharge Activity: Return to Normal Activity Additional Instructions: Complete all your medications as prescribed. Follow-up with Dr. Valdes within 2 weeks. Allergies/Adverse Reactions: Allergies lisinopril Adverse Reaction (Verified 04/09/19 13:06) Swelling Medications to take at Discharge Albuterol Inhaler [Ventolin Hfa] 1 - 2 puff INHALATION Q4H PRN PRN #1 inhaler 11/28/17 Fluticasone/Vilanterol [Breo Ellipta 100-25 Mcg INH] 1 ea IH DAILY 02/11/18 Albuterol Aerosols [Ventolin Aerosols] 2.5 mg INHALATION Q4H PRN #25 vial 11/16/18 pantoprazole 20 mg tablet,delayed release 20 mg PO DAILY 12/18/18 Pravastatin [Pravachol] 20 mg PO QHS 01/12/19 Amlodipine Besylate 5 mg PO DAILY 04/09/19 Paroxetine HCl 10 mg PO DAILY 04/09/19 Amoxicillin [Amoxil] 1,000 mg PO Q12H 14 Days #56 cap 04/10/19 Ensure Clear 120 ml PO 4X/DAY #120 liquid 04/10/19 Pantoprazole Sodium [Protonix] 40 mg PO BID 14 Days #28 tab 04/10/19 levoFLOXacin tablet [Levaquin tablet] 250 mg PO DAILY #15 tab 04/10/19 The following prescriptions were given: Amoxicillin [Amoxil] 1,000 mg PO Q12H 14 Days #56 cap Transmission Status: Received by EMILE BUENO [facility] Ensure Clear 120 ml PO 4X/DAY #120 liquid Transmission Status: Received by EMILE BUENO [facility] levoFLOXacin tablet [Levaquin tablet] 250 mg PO DAILY #15 tab Transmission Status: Received by EMIEL BUENO [facility] Pantoprazole Sodium [Protonix] 40 mg PO BID 14 Days #28 tab Transmission Status: Received by EMILE BUENO [facility] Primary Care Physician: Jethro Goel [Primary Care Provider] - Please follow up with your Primary Care Physician in: within 1-2 weeks Test Results: Test results from this visit will be discussed in further detail at your follow-up appointment, if applicable. When: Hematology in [facility] within 1-2 weeks Please Follow Up With: Carmina Valdes MD When: within 1-2 weeks Proposed Discharge Date: 04/10/19
--- NOTE | 2019-04-10 15:58 | CON.PCM_ITS ---
Problem List (1) Chronic anemia Status: Chronic Reason for Consult: hpyljaky Consulted by: Dr. Gee History of Present Illness: The patient is a 84 year old F with 2 treatments for hpylori in past 9 months, presented with intermittent chest pressure, moderate. No fever, no abd pain. Taken for EGD, hpylori was (+). She is not sure what regimens she took in the past. Feeling ok, discharge home planned. Full ROS performed and neg except as noted above. - Medical History Past Medical History (Chronic Problems): Chronic Problems (Last Updated 12/18/18 @ 10:49 by Josey Farah) COPD exacerbation (Chronic) Chronic anemia (Chronic) Disorder of bone and cartilage (Chronic) Dysmetabolic syndrome (Chronic) Lichen sclerosus (Chronic) Hypercholesteremia (Chronic) Multiple pulmonary nodules (Chronic) Osteopenia (Chronic) Obesity (Chronic) Fatigue (Chronic) Diverticula of colon (Chronic) CVA (cerebral vascular accident) (Chronic) Anemia (Chronic) Hypertrophy of nasal turbinates (Chronic) Chronic renal failure, stage 3 (moderate) (Chronic) Urinary, incontinence, stress female (Chronic) Bronchiectasis (Chronic) Anxiety (Chronic) HTN (hypertension) (Chronic) GERD (gastroesophageal reflux disease) (Chronic) Tobacco abuse (Chronic) HLD (hyperlipidemia) (Chronic) Allergies/Adverse Reactions: Allergies lisinopril Adverse Reaction (Verified 04/09/19 13:06) Swelling Home Medications: Ambulatory Orders Medication Instructions Recorded Albuterol Inhaler [Ventolin Hfa] 1 - 2 puff INHALATION Q4H PRN PRN 11/28/17 #1 inhaler Fluticasone/Vilanterol [Breo 1 ea IH DAILY 02/11/18 Ellipta 100-25 Mcg INH] Albuterol Aerosols [Ventolin 2.5 mg INHALATION Q4H PRN #25 vial 11/16/18 Aerosols] pantoprazole 20 mg tablet,delayed 20 mg PO DAILY 12/18/18 release Pravastatin [Pravachol] 20 mg PO QHS 01/12/19 Amlodipine Besylate 5 mg PO DAILY 04/09/19 Paroxetine HCl 10 mg PO DAILY 04/09/19 Amoxicillin [Amoxil] 1,000 mg PO Q12H 14 Days #56 cap 04/10/19 Ensure Clear 120 ml PO 4X/DAY #120 liquid 04/10/19 Pantoprazole Sodium [Protonix] 40 mg PO BID 14 Days #28 tab 04/10/19 levoFLOXacin tablet [Levaquin 250 mg PO DAILY #15 tab 04/10/19 tablet] - Social History SMOKING STATUS:: Former smoker Vital Signs Temp Pulse Resp BP Pulse Ox 98.0 F 61 16 138/67 H 93 04/10/19 15:04 04/10/19 15:04 04/10/19 15:04 04/10/19 15:04 04/10/19 15:04 Oxygen Flow Rate (L/min) 2 Oxygen Delivery Method Room Air Weight: 72.5 kg Body Mass Index (BMI) 25.7 Microbiology Past 72 Hours 04/09/19 20:25 Stool Occult Blood (SHY) - Final Stool Laboratory Tests Past 24 Hrs 04/09/19 04/10/19 04/10/19 12:55 06:15 06:15 WBC 7.4 RBC 3.48 L Hgb 8.9 L Hct 28.3 L MCV 81.3 MCH 25.6 L MCHC 31.4 L RDW Std Deviation 51.3 H RDW Coeff of Jung 17.5 H Plt Count 265 MPV 10.1 Immature Gran % (Auto) 0.700 Neut % (Auto) 74.9 H Lymph % (Auto) 15.2 L [place] % (Auto) 9.0 Eos % (Auto) 0.1 Baso % (Auto) 0.1 Absolute Neuts (auto) 5.6 Absolute Lymphs (auto) 1.13 Nucleated RBC % 0 PT INR APTT Sodium 142 Potassium 3.9 Chloride 109 H Carbon Dioxide 29.0 Anion Gap 4 L BUN 10 Creatinine 1.24 H Estim Creat Clear Calc 31.62 Est GFR (MDRD) Af Amer 53 L Est GFR (MDRD) Non-Af 44 L BUN/Creatinine Ratio 8.1 L Glucose 104 Calcium 9.5 Blood Type O POSITIVE Antibody Screen NEGATIVE Crossmatch See Detail 04/10/19 06:15 WBC RBC Hgb Hct MCV MCH MCHC RDW Std Deviation RDW Coeff of Jung Plt Count MPV Immature Gran % (Auto) Neut % (Auto) Lymph % (Auto) [place] % (Auto) Eos % (Auto) Baso % (Auto) Absolute Neuts (auto) Absolute Lymphs (auto) Nucleated RBC % PT 13.0 INR 1.0 APTT 25.1 Sodium Potassium Chloride Carbon Dioxide Anion Gap BUN Creatinine Estim Creat Clear Calc Est GFR (MDRD) Af Amer Est GFR (MDRD) Non-Af BUN/Creatinine Ratio Glucose Calcium Blood Type Antibody Screen Crossmatch - Other Studies Radiology: [] reviewed Other Studies: [] Route of nutrition/ use of supplements: [] Nutritional Intake: [] IV Site: [] Tariq Catheter: [] - Physical Exam General: Alert, Cooperative, No apparent distress HEENT: Atraumatic, PERRLA, EOMI Neck: Supple, No Nodes Lungs: Clear to auscultation, Normal air movement Cardiovascular: Regular rate, Regular Rhythm Abdomen: Soft, Non Tender, Non-Distended Extremities: No edema Skin: No rashes IV Site: Peripheral, without redness Musculoskeletal: No Tenderness to Palpation of Joints or Extremities Neurological: Cranial nerves II-XII grossly intact - Assessment/Plan Antibiotics: [] Assessment/Plan: [] Active and Suspected Problems (Last Updated 12/18/18 @ 10:49 by Josey Farah) Severe anemia (Acute) recurrent hpylori - will do 14 day course of levaquin, amoxicillin, and bid PPI given prior treatment failures. Levaquin adjusted for her CKD. Thank you, will follow as needed, d/w Dr. Valdes and Dr. Gee. Wrote rx.
--- NOTE | 2019-04-10 16:06 | DS.PCM_ITS ---
Discharge Date and Diagnosis - Problem List Patient Problems: Active and Suspected Problems (Last Updated 12/18/18 @ 10:49 by Josey Farah) Severe anemia (Acute) Date of Admission: 04/09/19 Date of Discharge: 04/10/19 - Primary Discharge Diagnosis Active and Suspected Problems (Last Updated 12/18/18 @ 10:49 by Josey Farah) Severe anemia (Acute) GI bleed ruled out H. pylori positive, failed outpt treatment - Secondary Discharge Diagnosis Chronic Problems (Last Updated 12/18/18 @ 10:49 by Josey Farah) COPD exacerbation (Chronic) Chronic anemia (Chronic) Disorder of bone and cartilage (Chronic) Dysmetabolic syndrome (Chronic) Lichen sclerosus (Chronic) Hypercholesteremia (Chronic) Multiple pulmonary nodules (Chronic) Osteopenia (Chronic) Obesity (Chronic) Fatigue (Chronic) Diverticula of colon (Chronic) CVA (cerebral vascular accident) (Chronic) Anemia (Chronic) Hypertrophy of nasal turbinates (Chronic) Chronic renal failure, stage 3 (moderate) (Chronic) Urinary, incontinence, stress female (Chronic) Bronchiectasis (Chronic) Anxiety (Chronic) HTN (hypertension) (Chronic) GERD (gastroesophageal reflux disease) (Chronic) Tobacco abuse (Chronic) HLD (hyperlipidemia) (Chronic) Hospital Course and Treatment Imaging Results: Clinical Impression(s) from Imaging Studies Chest X-Ray 04/09/19 09:18 IMPRESSION: Hyperinflation. No acute abnormality is seen. Electronically Signed: Kyle Stevens, at 9:43 EDT , Service support , General surgery- Dr. Valdes Infectious disease Operations: None Procedures: Colonoscopy, EGD Summary of Care Provided: 84 year old F with past medical history of hypertension, GERD, COPD, not on oxygen, who comes in with progressive shortness of breath ongoing for about 1 month. Patient was found to be severely anemic with hemoglobin of 7.4. No melena or hematochezia seen. Stool occult blood was negative. She was transfused 1 unit of blood. General surgery was consulted. She underwent EGD and colonoscopy which was unremarkable. Patient has a history of H. pylori diagnosed by EGD in 2018. She was treated twice in the outpatient for H. pylori. ID was consulted for resistant H. pylori. Patient was discharged on Levaquin, amoxicillin as well as PPI twice daily for 14 days. Patient will follow-up with infectious disease, and general surgery as well as her primary care doctor and outpatient. Patient Problems: Active and Suspected Problems (Last Updated 12/18/18 @ 10:49 by Josey Farah) Severe anemia (Acute) Subjective: See progress note of the day Objective: See progress note of the day - Physical Exam Vital Signs Temp Pulse Resp BP Pulse Ox 98.0 F 61 16 138/67 H 93 04/10/19 15:04 04/10/19 15:04 04/10/19 15:04 04/10/19 15:04 04/10/19 15:04 Oxygen Flow Rate (L/min) 2 Oxygen Delivery Method Room Air Weight: 72.5 kg Body Mass Index (BMI) 25.7 Intake and Output for Last 24 Hours 04/08/19 04/09/19 04/10/19 23:59 23:59 23:59 Intake Total 1904 / 3871 3067 / 3067 Output Total 1100 / 2300 1200 / 1200 Balance 804 / 1571 1867 / 1867 Microbiology Past 72 Hours 04/09/19 20:25 Stool Occult Blood (SHY) - Final Stool Laboratory Tests Past 24 Hrs 04/09/19 04/10/19 04/10/19 12:55 06:15 06:15 WBC 7.4 RBC 3.48 L Hgb 8.9 L Hct 28.3 L MCV 81.3 MCH 25.6 L MCHC 31.4 L RDW Std Deviation 51.3 H RDW Coeff of Jung 17.5 H Plt Count 265 MPV 10.1 Immature Gran % (Auto) 0.700 Neut % (Auto) 74.9 H Lymph % (Auto) 15.2 L [place] % (Auto) 9.0 Eos % (Auto) 0.1 Baso % (Auto) 0.1 Absolute Neuts (auto) 5.6 Absolute Lymphs (auto) 1.13 Nucleated RBC % 0 PT INR APTT Sodium 142 Potassium 3.9 Chloride 109 H Carbon Dioxide 29.0 Anion Gap 4 L BUN 10 Creatinine 1.24 H Estim Creat Clear Calc 31.62 Est GFR (MDRD) Af Amer 53 L Est GFR (MDRD) Non-Af 44 L BUN/Creatinine Ratio 8.1 L Glucose 104 Calcium 9.5 Crossmatch See Detail 04/10/19 06:15 WBC RBC Hgb Hct MCV MCH MCHC RDW Std Deviation RDW Coeff of Jung Plt Count MPV Immature Gran % (Auto) Neut % (Auto) Lymph % (Auto) [place] % (Auto) Eos % (Auto) Baso % (Auto) Absolute Neuts (auto) Absolute Lymphs (auto) Nucleated RBC % PT 13.0 INR 1.0 APTT 25.1 Sodium Potassium Chloride Carbon Dioxide Anion Gap BUN Creatinine Estim Creat Clear Calc Est GFR (MDRD) Af Amer Est GFR (MDRD) Non-Af BUN/Creatinine Ratio Glucose Calcium Crossmatch Discharge Diet: Low fat/ Low Cholesterol, 2000 mg Sodium Diet Discharge Activity: Return to Normal Activity Home Medications: Medications to take at Discharge Albuterol Inhaler [Ventolin Hfa] 1 - 2 puff INHALATION Q4H PRN PRN #1 inhaler 11/28/17 Fluticasone/Vilanterol [Breo Ellipta 100-25 Mcg INH] 1 ea IH DAILY 02/11/18 Albuterol Aerosols [Ventolin Aerosols] 2.5 mg INHALATION Q4H PRN #25 vial 11/16/18 pantoprazole 20 mg tablet,delayed release 20 mg PO DAILY 12/18/18 Pravastatin [Pravachol] 20 mg PO QHS 01/12/19 Amlodipine Besylate 5 mg PO DAILY 04/09/19 Paroxetine HCl 10 mg PO DAILY 04/09/19 Amoxicillin [Amoxil] 1,000 mg PO Q12H 14 Days #56 cap 04/10/19 Ensure Clear 120 ml PO 4X/DAY #120 liquid 04/10/19 Ferrous Sulfate 325 mg PO BID #60 tab 04/10/19 Pantoprazole Sodium [Protonix] 40 mg PO BID 14 Days #28 tab 04/10/19 levoFLOXacin tablet [Levaquin tablet] 250 mg PO DAILY #15 tab 04/10/19 Following Prescrptions Were Given to Patient: Amoxicillin [Amoxil] 1,000 mg PO Q12H 14 Days #56 cap Transmission Status: Received by [address] Ensure Clear 120 ml PO 4X/DAY #120 liquid Transmission Status: Received by [address] Ferrous Sulfate 325 mg PO BID #60 tab Transmission Status: Sent to [place] [id number] [facility] levoFLOXacin tablet [Levaquin tablet] 250 mg PO DAILY #15 tab Transmission Status: Received by [id number] [facility] Pantoprazole Sodium [Protonix] 40 mg PO BID 14 Days #28 tab Transmission Status: Received by EMILE [id number] Primary Care Physician: Jethro Goel [Primary Care Provider] - Please follow up with your Primary Care Physician in: within 1-2 weeks When: Hematology in [facility] within 1-2 weeks Please Follow Up With: Carmina Valdes MD When: within 1-2 weeks Disposition: Home Minutes spent on discharge:: 40 Patient Condition:: Stable Medical Necessity - Tobacco Use Smoking Status: Former smoker Tobacco Use: Non-smoker Meaningful Use Info Meaningful Use Diagnoses (Choose all that apply): None applicable Code Visit Inpatient E&M: 38106 Subs Hosp L2
== END 2019-04-10 17:33 | disposition home or self-care (01) ==
LOC: ED 09:56 → MS3 12:09
PROVIDERS: Anesthesiology; Surgery; Admitting Provider Internal Medicine; Emergency Provider Emergency Medicine; Family Provider Student in an Organized Health Care Education/Training Program; PCP Student in an Organized Health Care Education/Training Program; Referring Provider Internal Medicine; Visit Provider Internal Medicine
PROC: 0DJD8ZZ Inspection of Lower Intestinal Tract, Via Natural or Artificial Opening Endoscopic (ICD-10-PCS; CPT 45378; principal; 2019-04-10 11:55)
DX: D50.9 Iron deficiency anemia, unspecified (principal); J44.9 Chronic obstructive pulmonary disease, unspecified; Z87.891 Personal history of nicotine dependence; Z79.899 Other long term (current) drug therapy; K21.9 Gastro-esophageal reflux disease without esophagitis; E78.5 Hyperlipidemia, unspecified; I12.9 Hypertensive chronic kidney disease with stage 1 through stage 4 chronic kidney disease, or unspecified chronic kidney disease; N18.3 Chronic kidney disease, stage 3 (moderate); Z86.73 Personal history of transient ischemic attack (TIA), and cerebral infarction without residual deficits; K44.9 Diaphragmatic hernia without obstruction or gangrene; K57.30 Diverticulosis of large intestine without perforation or abscess without bleeding; K64.8 Other hemorrhoids
CPT/HCPCS: 43239; 45378; 36415; 36430; 71045; 80048; 82274; 83880; 84484; 85025; 85610; 85730; 86850; 86900; 86920; 86922; 93005; 94640; 96365; 96366; 96375; 97802; 99218; 99283; J7040; J7050; P9016; A4216; G0378

== ENCOUNTER 2019-05-16 08:12 | Emergency (ER) | payer MEDICARE, SELFPAY ==
[2019-04-10 10:30] VITALS: BMI 25.7
[2019-05-16 08:14] VITALS: BP 155/93; PULSE 72; RESP 20; TEMP 36.2; O2SAT 97; BMI 25.7
--- NOTE | 2019-05-16 08:14 | EKG12_ITS ---
Test Reason : CP Blood Pressure : / mmHG Vent. Rate : 056 BPM Atrial Rate : 056 BPM P-R Int : 166 ms QRS Dur : 086 ms QT Int : 432 ms P-R-T Axes : 075 -21 045 degrees QTc Int : 416 ms Sinus bradycardia with occasional Premature ventricular complexes Possible Left atrial enlargement Borderline ECG Confirmed by SHIRA BARLOW, ÓSCAR ([id number]), field map editor RAJESH MARTIN ([id number]) on 05/19/2019 12:10:22 PM Referred By: RAPHAEL Confirmed By:TANIA SILVA MD
[2019-05-16 08:24] VITALS: BP 176/92; PULSE 57; RESP 19; O2SAT 99
[2019-05-16] MEDS: 0.9% Normal Saline 1,000 ML 1000 ML IV (08:36)
[2019-05-16] MEDS: Ondansetron 4 MG/2 ML Vial IV (08:37)
[2019-05-16 08:44] LABS: Absolute Lymphocyte Count 0.68 X10^3/uL (0.83-4.51); Absolute Neutrophil Count 6.8 X10^3/uL (2.0-7.7); Basophil# 0.04 X10^3/uL; Basophil% 0.5 % (0-1); Eosinophil# 0.09 X10^3/uL; Eosinophils% 1.1 % (0-5); Hemoglobin 10.3 g/dL (12.0-15.0); Lymphocyte # 0.68 X10^3/ul (4.0); Lymphocyte % 8.5 % (19-41); Mean Corp Hgb Conc 31.2 g/dL (32-36); NRBC Flagged by Analyzer 0 % (0-5); Neutrophil # 6.79 X10^3/uL (2.7-7.7); Neutrophil % 84.5 % (47-70); POSITIVE MORPHOLOGY YES; Platelet Count 217 K/mm3 (150-450); RBC Distribution Width CV 25.4 % (11.6-14.6); RBC Distribution Width SD 83.1 fl (35.1-43.9); Red Blood Count 3.55 M/mm3 (4.2-5.4)
[2019-05-16 08:47] LABS: Differential Indicated SCAN CRITERIA MET
[2019-05-16 09:06] LABS: ALB/GLOB Ratio 0.9 RATIO (0.9-2.4); AST(SGOT) 31 U/L (15-37); Alanine Aminotransfer ALT/SGPT 21 U/L (13-56); Albumin, Serum 3.6 g/dL (3.2-5.0); Alkaline Phosphatase 79 U/L (45-117); Anion Gap 4 (5-15); BUN 12 mg/dL (7-18); BUN/Creat Ratio 9.6 RATIO (10-20); Calcium,Total 9.1 mg/dL (8.5-10.1); Chloride 108 mmol/L (98-107); Creatinine, Serum 1.25 mg/dL (0.55-1.02); EST Glomerular Filtration Rate 43 mL/min (>60); Est Glom Filt Rate - Afr Amer 53 mL/min (>60); Estimated Creatinine Clearance 32.58 ml/min; Glucose 126 mg/dL (74-106); Lipase 246 U/L (73-393); Potassium 3.9 mmol/L (3.5-5.1); Protein, Total 7.6 g/dL (6.4-8.2); Sodium Level 139 mmol/L (136-145)
[2019-05-16 09:12] LABS: Anisocytosis 1+; Platelet Estimate ADEQUATE (ADEQ)
[2019-05-16 09:13] LABS: Hypochromasia 1+; Polychromasia RARE
[2019-05-16 09:29] LABS: Bacteria 0 SEEN /hpf (None Seen); Mucous, Urine 0 SEEN /hpf (<or=2+); Red Blood Cells-Urine 0 SEEN /hpf (0-5); Squamous Epithelial Cells - UA 0 SEEN /hpf (5-10); White Blood Cells 0 SEEN /hpf (0-5)
[2019-05-16 09:47] LABS: Color, Urine Yellow (Yellow); Glucose, Dipstick Normal (Normal); Ketone-Dipstick Negative (Negative); Leukocyte Esterase-Dipstick Negative /ul (Negative); Nitrite-Dipstick Negative (Negative); Occult Blood-Urine Negative /ul (Negative); Protein-Dipstick Negative (Negative); Urine Bilirubin Dipstick Negative (Negative); Urine Clarity Sl. Cloudy (Clear); Urine Urobilinogen Normal (Normal); Urine pH 6.5 (5.0 - 8.0)
--- NOTE | 2019-05-16 10:13 | ED.VISSUMM ---
- ER Visit Summary Date of Service: 05/16/19 Chief Complaint: Nausea, vomiting, diarrhea History of Present Illness: The patient is a 84 F with nausea, vomiting, and diarrhea. Her symptoms started overnight. She denies any blood. She said her bowel movements are mix of liquid and formed elements. No recent antibiotics. No new foods or medications. No travel or sick contacts. No fevers. No abdominal pain. No other pain or symptoms. History of bladder surgery. Physical Examination: Afebrile and vital signs unremarkable. Alert and oriented. No acute distress. Skin appears normal. Moist mucous membranes. Heart regular rate and rhythm. Lungs clear. Abdomen soft, nontender, nondistended, normal bowel sounds, no masses. Test Results: EKG was done per nursing. This showed sinus rhythm at a rate of 56 with PVC. No sign of ischemia or infarction pattern. Hemoglobin stable 10.3. Glucose 126. Creatinine stable 1.25. Hepatic panel and lipase unremarkable. Urinalysis normal. Troponin was normal. Emergency Department Course and Treatment: Patient presents with nausea, vomiting, and diarrhea. Vitals and exam are unremarkable. No significant risk factors or red flag features. She was treated with IV fluids and Zofran. Her nausea improved greatly. No further nausea or vomiting. She did have some continued diarrhea. This was nonbloody and did not seem consistent with C. difficile diarrhea. She is not having pain or other concerning features. This is likely self-limiting. Will treat with Zofran and Imodium. Stay hydrated. Follow-up with primary care. Precautions discussed. Return for any issues right away. Treatment Plan: As above Disposition: Discharge Impression: 1. Nausea, vomiting, and diarrheal illness This note was generated with [employer] dictation software. It may contain incorrect words, spelling, and punctuation that were not noted in review of the chart prior to signing ED Disposition - Plan for ED Patient: Referrals: Jethro Goel [Primary Care Provider] -
--- NOTE | 2019-05-16 10:16 | ED.DEP ---
ED Disposition - Plan for ED Patient: Instructions: DIET, Vomiting or Diarrhea [6yr-Adult] Prescriptions: Loperamide [Imodium] 2 mg PO Q2H PRN PRN #20 cap PRN Reason: Diarrhea Prescription Printed Ondansetron [Zofran Odt] 4 mg PO Q8H PRN PRN #10 tab PRN Reason: Nausea Prescription Printed Referrals: Jethro Goel [Primary Care Provider] -
[2019-05-16 10:35] VITALS: BP 149/82; PULSE 79; RESP 16; O2SAT 94
== END 2019-05-16 10:36 | disposition home or self-care (01) ==
LOC: ED 08:42
PROVIDERS: Emergency Provider Emergency Medicine; Family Provider Student in an Organized Health Care Education/Training Program; PCP Student in an Organized Health Care Education/Training Program
DX: R11.2 Nausea with vomiting, unspecified (principal); R19.7 Diarrhea, unspecified; I10 Essential (primary) hypertension; J44.9 Chronic obstructive pulmonary disease, unspecified; Z79.899 Other long term (current) drug therapy; Z87.891 Personal history of nicotine dependence
CPT/HCPCS: 80053; 81001; 83690; 84484; 85025; 93005; 96361; 96374; 99284; J7030; A4216; J2405

== ENCOUNTER 2019-06-28 20:35 | Emergency (ER) | payer MEDICARE, SELFPAY ==
[2019-06-28 20:35] VITALS: BP 167/85; PULSE 80; RESP 15; TEMP 36.6; O2SAT 96; BMI 26.1
--- NOTE | 2019-06-28 21:05 | ED.DCSUM_ITS ---
- ER Visit Summary Date of Service: 06/28/19 Chief Complaint: I cannot breathe out of the right side of my nose. History of Present Illness: The patient is a 84 F 3 of COPD, hypertension, anemia and renal insufficiency. He states today around noon she started nasal congestion and now cannot breathe out her right side of her nose. She is had prior nasal surgery on the left side of her nose. She denies any significant cough, fever or chest pain. No shortness of breath just feels like she cannot breathe out of her nose. Physical Examination: Older female no acute distress. Vital signs stable afebrile. Pulse ox 96% on room air no hypoxia. HEENT exam posterior pharynx normal. No erythema or exudate no trouble swallowing or breathing. Nose left unremarkable other than clear drainage right clear drainage and mildly swollen nasal turbinates. No pus. No frontal maxillary sinus tenderness. Neck nontender no lymphadenopathy. Lungs clear to auscultation bilaterally. No rales, rhonchi or wheezing. Heart regular rate and rhythm rate about 80 no murmur. Abdomen soft and nontender normal bowel sounds no peritoneal signs. Patient is moving all 4 extremities.. Calves nontender and no edema. Neurologically she is awake and alert Test Results: none Emergency Department Course and Treatment: Patient's exam is basically unremarkable other than some nasal congestion. She states she did attempt to use nasal spray did not help. To be placed on a short course of steroids. Treatment Plan: Prednisone 40 g a day for 1 week. Follow-up with ENT as needed. Return if worse. Disposition: Discharge Impression: Nasal congestion and drainage History of COPD This note was generated with [employer] dictation software. It may contain incorrect words, spelling, and punctuation that were not noted in review of the chart prior to signing ED Disposition - Plan for ED Patient: Referrals: Jethro Goel [Primary Care Provider] -
--- NOTE | 2019-06-28 21:08 | ED.DEP ---
ED Disposition - Plan for ED Patient: Disposition: Home or Assisted Living Prescriptions: Prednisone [Deltasone] 40 mg PO DAILY 7 Days tab Prescription Printed Referrals: Jethro Goel [Primary Care Provider] - As Needed Additional Instructions: Prednisone daily. Follow-up with not improving.
[2019-06-28] MEDS: predniSONE 20 MG Tablet 40 MG PO (21:16)
[2019-06-28 21:17] VITALS: BP 144/71; PULSE 71; RESP 16; O2SAT 99
== END 2019-06-28 21:19 | disposition home or self-care (01) ==
LOC: ED 21:19
PROVIDERS: Emergency Provider Emergency Medicine; Family Provider Student in an Organized Health Care Education/Training Program; PCP Student in an Organized Health Care Education/Training Program
DX: R09.81 Nasal congestion (principal); R09.89 Other specified symptoms and signs involving the circulatory and respiratory systems; J44.9 Chronic obstructive pulmonary disease, unspecified; I10 Essential (primary) hypertension; N28.9 Disorder of kidney and ureter, unspecified; D64.9 Anemia, unspecified; Z79.899 Other long term (current) drug therapy; Z87.891 Personal history of nicotine dependence
CPT/HCPCS: 99283

== ENCOUNTER 2019-07-17 18:42 | Emergency (ER) | payer MEDICARE, SELFPAY ==
[2019-07-17 18:43] VITALS: BP 198/87; PULSE 69; RESP 17; TEMP 37; O2SAT 100; BMI 27.1
--- NOTE | 2019-07-17 18:57 | EKG12_ITS ---
Test Reason : SOB Blood Pressure : / mmHG Vent. Rate : 059 BPM Atrial Rate : 059 BPM P-R Int : 170 ms QRS Dur : 090 ms QT Int : 426 ms P-R-T Axes : 062 -20 030 degrees QTc Int : 421 ms Sinus bradycardia Otherwise normal ECG Confirmed by GENIE BARLOW, NATALIE ([id number]), publications editor RAJESH MARTIN ([id number]) on 07/21/2019 11:14:00 AM Referred By: Confirmed By:NATALIE PRESCOTT MD
--- NOTE | 2019-07-17 18:57 | RAD_ITS ---
STUDY: X-RAY CHEST REASON FOR EXAM: Female, 84 years old. Cough. Shortness of breath for 3 days. TECHNIQUE: PA and lateral views of the chest. COMPARISON: April 09, 2019. FINDINGS: The lungs are hyperinflated with mild chronic interstitial changes. There is no acute infiltrate or mass. There is a stable calcified granuloma in the left midlung. There is no demonstrated pleural abnormality. Normal size heart. Normal mediastinum and rasheed. Normal visualized pulmonary arteries. There is atherosclerotic calcification of the aortic arch with tortuosity. There is a retrocardiac hiatal hernia. Normal visualized thoracic spine. There is degenerative osteoarthritis of the bilateral shoulders. There is no demonstrated abnormality of the visualized soft tissue structures of the upper abdomen. RAD/Chest PA and Lateral IMPRESSION: 1. Probable COPD without acute pulmonary disease. There is evidence of old granulomatous disease. 2. Hiatal hernia. Electronically Signed: Douglas Barnett DO at 19:41 EST Tel [phone], Service support ,
--- NOTE | 2019-07-17 18:59 | ED.DCSUM_ITS ---
- ER Visit Summary Date of Service: 07/17/19 Chief Complaint: Dyspnea History of Present Illness: The patient is a 84 F who tells me that since waking up this morning she has felt a tightness in her chest sensation that she cannot catch her breath. She does note a cough with some sputum production that she describes as clear. She states that she has COPD and chronically has a cough but does not normally produce any sputum. She denies any fevers. She quit smoking 2 years ago. Wear home oxygen. She is tried 2 nebulizers today without success in relieving her dyspnea Physical Examination: Afebrile vital signs are stable Gen: Well-nourished well-developed Head: Normocephalic atraumatic Eyes: Perrl EOMI ENT: TMs clear no rhinorrhea moist mucous membranes there is line is of the face he is Neck: Supple no lymphadenopathy no JVD nontender CVS: Regular rate rhythm no murmurs normal S1-S2 Respiratory: No distress clear to auscultation bilaterally menaced breath sounds chest nontender Abdomen: Soft nontender nondistended normal bowel sounds no masses Back: Nontender Extremity: Nontender no edema Skin: Normal color no rash Neuro: alert orientated ?3 CN II-XII intact normal strength sensation reflexes gait cerebellar Psych: Normal affect normal mood Test Results: CBC chemistries with a creatinine 1.49 white count of 5.1 hemoglobin 0.3. Troponin is negative. Chest x-ray showed chronic changes. Emergency Department Course and Treatment: Patient received breathing treatments and Solu-Medrol. She had improved breath sounds bilaterally after treatments. She ambulated asymptomatically without being any significant labored breathing or hypoxemia. Patient will be started on prednisone and continue to 4-hour aerosols. Return if worsening or concerns Impression: 1. COPD exacerbation This note was generated with [employer] dictation software. It may contain incorrect words, spelling, and punctuation that were not noted in review of the chart prior to signing ED Disposition - Plan for ED Patient: Disposition: Home or Assisted Living Instructions: Copd Flare Prescriptions: Prednisone [Deltasone] 40 mg PO DAILY #10 tab Prescription Printed Referrals: Jethro Goel [Primary Care Provider] - 3-5 Days if not improving Additional Instructions: Recommend you take a albuterol aerosol every 4-6 hours or even every 2 hours if need be.
[2019-07-17 19:01] VITALS: O2SAT 100
[2019-07-17] MEDS: Ipratropium/Albuterol Sulfate 3 ML AMPUL.NEB INHALATION (19:11)
[2019-07-17] MEDS: Albuterol 2.5 MG/3 ML VIAL.NEB. INHALATION ×3 (19:11→19:25)
[2019-07-17 19:15] VITALS: PULSE 82; RESP 18
[2019-07-17 19:21] LABS: Absolute Lymphocyte Count 1.04 X10^3/uL (0.83-4.51); Absolute Neutrophil Count 3.2 X10^3/uL (2.0-7.7); Basophil# 0.06 X10^3/uL; Basophil% 1.2 % (0-1); Eosinophil# 0.25 X10^3/uL; Hematocrit 35.8 % (37-47); Hemoglobin 11.3 g/dL (12.0-15.0); Lymphocyte # 1.04 X10^3/ul (4.0); Lymphocyte % 20.6 % (19-41); Mean Corp Hgb Conc 31.6 g/dL (32-36); Mean Corpuscular Hgb 30.6 pg (27.0-32.0); Mean Platelet Vol. 9.6 fl (6.2-12.0); Monocyte# 0.53 X10^3/uL; Monocyte% 10.5 % (0-10); NRBC Flagged by Analyzer 0 % (0-5); Neutrophil # 3.17 X10^3/uL (2.7-7.7); Neutrophil % 62.7 % (47-70); Platelet Count 207 K/mm3 (150-450); RBC Distribution Width CV 14.9 % (11.6-14.6); Red Blood Count 3.69 M/mm3 (4.2-5.4); White Blood Count 5.1 K/mm3 (4.4-11.0)
[2019-07-17] MEDS: MethylPREDNISolone 125 MG/2 ML Vial IV (19:21)
[2019-07-17 19:45] VITALS: O2SAT 94
[2019-07-17 19:54] VITALS: PULSE 84; RESP 16; O2SAT 95
[2019-07-17 19:55] LABS: Anion Gap 5 (5-15); BUN 14 mg/dL (7-18); BUN/Creat Ratio 9.4 RATIO (10-20); Calcium,Total 9.3 mg/dL (8.5-10.1); Chloride 109 mmol/L (98-107); Creatinine, Serum 1.49 mg/dL (0.55-1.02); EST Glomerular Filtration Rate 35 mL/min (>60); Est Glom Filt Rate - Afr Amer 43 mL/min (>60); Estimated Creatinine Clearance 26.31 ml/min; Glucose 105 mg/dL (74-106); Sodium Level 142 mmol/L (136-145)
[2019-07-17 20:23] VITALS: PULSE 79; RESP 15; O2SAT 97
== END 2019-07-17 20:32 | disposition home or self-care (01) ==
PROVIDERS: Emergency Provider Emergency Medicine; Family Provider Student in an Organized Health Care Education/Training Program; PCP Student in an Organized Health Care Education/Training Program
DX: J44.1 Chronic obstructive pulmonary disease with (acute) exacerbation (principal); I10 Essential (primary) hypertension; Z99.81 Dependence on supplemental oxygen; Z79.899 Other long term (current) drug therapy; Z86.73 Personal history of transient ischemic attack (TIA), and cerebral infarction without residual deficits; Z87.891 Personal history of nicotine dependence
CPT/HCPCS: 71046; 80048; 84484; 85025; 93005; 94640; 96374; 99283; A4216

== ENCOUNTER 2019-07-22 18:27 | Emergency (ER) | payer MEDICARE, SELFPAY ==
[2019-07-22 18:28] VITALS: BP 172/101; PULSE 83; RESP 22; TEMP 36.9; O2SAT 96; BMI 26.2
--- NOTE | 2019-07-22 18:46 | EKG12_ITS ---
Test Reason : Blood Pressure : / mmHG Vent. Rate : 067 BPM Atrial Rate : 067 BPM P-R Int : 156 ms QRS Dur : 086 ms QT Int : 404 ms P-R-T Axes : 062 -20 048 degrees QTc Int : 426 ms Sinus rhythm with Premature atrial complexes Possible Left atrial enlargement Borderline ECG Confirmed by SHIRA BARLOW, ÓSCAR ([id number]), tape editor GIANLUCA TAYLOR ([id number]) on 07/24/2019 12:38:59 PM Referred By: MO Confirmed By:TANIA SILVA MD
--- NOTE | 2019-07-22 18:58 | RAD_ITS ---
STUDY: X-RAY CHEST REASON FOR EXAM: Female, 84 years old. SOB/DYSPNEA AND CONGESTION. HX OF COPD TECHNIQUE: Single AP portable view of the chest. COMPARISON: 07/17/2019. FINDINGS: There is hyperinflation of the lungs consistent with chronic obstructive lung disease (COPD). No infiltrates or effusions. Stable calcified granulomas. There is no demonstrated pleural abnormality. Normal size heart. Normal mediastinum and rasheed. Normal visualized pulmonary arteries. There is atherosclerotic tortuosity of the aortic arch and descending thoracic aorta. Stable small to moderate hiatal hernia. Normal visualized thoracic spine. Normal visualized ribs, clavicles, and shoulders. There is no demonstrated abnormality of the visualized soft tissue structures of the upper abdomen. RAD/Chest 1 View (Portable) IMPRESSION: There are findings consistent with COPD. There is no evidence of acute chest disease. Electronically Signed: Moses Godwin MD at 19:26 EST , Service support ,
[2019-07-22 19:10] VITALS: BP 172/101; PULSE 67; RESP 16; TEMP 36.9; O2SAT 97; O2SAT 98
[2019-07-22] MEDS: MethylPREDNISolone 125 MG/2 ML Vial IV (19:12)
[2019-07-22] MEDS: Ipratropium/Albuterol Sulfate 3 ML AMPUL.NEB INHALATION (19:12)
[2019-07-22 19:17] LABS: Absolute Lymphocyte Count 1.01 X10^3/uL (0.83-4.51); Absolute Neutrophil Count 4.5 X10^3/uL (2.0-7.7); Basophil# 0.04 X10^3/uL; Basophil% 0.6 % (0-1); Eosinophils% 3.1 % (0-5); Hemoglobin 11.1 g/dL (12.0-15.0); Lymphocyte # 1.01 X10^3/ul (4.0); Lymphocyte % 15.7 % (19-41); Mean Corp Hgb Conc 31.7 g/dL (32-36); Mean Corpuscular Hgb 30.4 pg (27.0-32.0); Mean Corpuscular Volume 95.9 fL (81-99); Mean Platelet Vol. 9.6 fl (6.2-12.0); Monocyte# 0.65 X10^3/uL; Monocyte% 10.1 % (0-10); NRBC Flagged by Analyzer 0 % (0-5); Neutrophil # 4.53 X10^3/uL (2.7-7.7); Neutrophil % 70.2 % (47-70); Platelet Count 223 K/mm3 (150-450); RBC Distribution Width CV 14.9 % (11.6-14.6); RBC Distribution Width SD 49.7 fl (35.1-43.9); Red Blood Count 3.65 M/mm3 (4.2-5.4); White Blood Count 6.5 K/mm3 (4.4-11.0)
[2019-07-22 19:19] VITALS: PULSE 67; RESP 14
[2019-07-22 19:24] LABS: Anion Gap 5 (5-15); BUN 18 mg/dL (7-18); BUN/Creat Ratio 12.7 RATIO (10-20); Calcium,Total 9.2 mg/dL (8.5-10.1); Chloride 109 mmol/L (98-107); Creatinine, Serum 1.42 mg/dL (0.55-1.02); EST Glomerular Filtration Rate 37 mL/min (>60); Est Glom Filt Rate - Afr Amer 45 mL/min (>60); Estimated Creatinine Clearance 28.68 ml/min; Glucose 114 mg/dL (74-106); Potassium 3.8 mmol/L (3.5-5.1); Sodium Level 141 mmol/L (136-145)
--- NOTE | 2019-07-22 19:31 | CT_ITS ---
STUDY: CTA CHEST REASON FOR EXAM: Female, 84 years old. Dyspnea. Elevated d-dimer. RADIATION DOSAGE (If Supplied By Facility): CTDIvol = ( 7.78 ) mGy, DLP = ( 330.06 ) mGycm TECHNIQUE: The examination was performed with the intravenous administration of IV 100mL Isovue-370 100ML. Post-processing of the angiographic images was performed, with multiplanar reformation and 3D reconstruction. Individualized dose optimization techniques were used for this CT. COMPARISON: None. FINDINGS: Normal enhancement of the main pulmonary artery and right and left pulmonary arteries. Normal enhancement of the bilateral peripheral pulmonary arteries. There is no demonstrated pulmonary embolism. Normal thoracic aorta and visualized great vessels. There is no demonstrated aortic dissection. Normal heart and pericardium. Normal mediastinum. Normal hilar regions. Normal visualized trachea and bronchi. The lungs are hyper expanded, with flattening of the hemidiaphragms. There is evidence of chronic pulmonary disease. There is a 5 mm indeterminate nodule in the left apex, axial image 228. There is a 5 mm pleural-based nodule in the lingula, axial image 138. There is a 9 mm pleural-based nodule in the left lateral costophrenic angle, axial image 72. No infiltrates. No effusions. Normal chest wall structures. Normal osseous structures. Moderate hiatal hernia. CT/CTA Chest W/WO Contrast IMPRESSION: Normal CTA chest examination, without a demonstrated pulmonary embolism or arterial dissection. COPD. Nodules as above. Electronically Signed: Moses Godwin MD at 20:39 EST , Service support ,
[2019-07-22 20:23] VITALS: BP 166/100; PULSE 74; RESP 17; TEMP 36.9; O2SAT 98
--- NOTE | 2019-07-22 20:49 | ED.DCSUM_ITS ---
- ER Visit Summary Date of Service: 07/22/19 Chief Complaint: [Shortness of breath] History of Present Illness: The patient is a 84 F [presents to the emergency department with complaint of shortness of breath. Patient presents from urgent care. Patient states that she is been more short of breath today than usual. Patient does have history of COPD. She has been cough and off-and-on is bringing up some mild green phlegm at times which is not unusual for her. Patient does not wear home O2. She denies recent travel or surgery. She denies any chest pain. Patient denies any fevers at home however at urgent care she was told her temperature was 100. In the emergency department she is 98.4.] She received a breathing treatment at urgent care but did not have much improvement in her symptoms. Patient is currently on prednisone and has been for the last 4 days. Physical Examination: [HEENT-PERRLA, EOMI. Cranial nerves II through XII grossly intact. TMs clear. Mucous membranes moist. No adenopathy. Cardiovascular-regular rate and rhythm without murmur or ectopy Lungs-patient has good aeration bilaterally. She has some faint expiratory wheezes noted. No significant tachypnea. No accessory muscle use or retractions. Abdomen-normoactive bowel sounds, soft, nontender, no rebound or rigidity, no peritoneal signs. Extremities-intact ?4, normal range of motion, normal pulses, atraumatic] Test Results: CBC with differential obtained showing a 6.5, hemoglobin 11, hematocrit 35, placed 223. Chemistries unremarkable. BUN was 18 and creatinine 1.42. D-dimer was 1.5. Troponin is less than 0.15. Chest x-ray showed COPD otherwise nothing acute. EKG obtained showed a sinus rhythm with a ventricular rate of 67 bpm with no acute ST segment changes. CTA of the chest obtained showed no evidence for PE or dissection. She had some small nodules throughout both lungs. Emergency Department Course and Treatment: [Patient was given DuoNeb aerosol as well as Solu-Medrol 125 mill grams IV. [place] significantly improved after treatment.] Treatment Plan: [Patient will be given a prescription for prednisone for 2 more days. Patient advised to follow-up with her primary care physician within next 3 to 5 days. Patient advised to return if increasing shortness of breath or condition should worsen anyway. Advised to follow-up with her primary care physician regarding the nodules on CT. Patient will likely require follow-up CT in 6 months to a year.] Disposition: [Discharged home in stable condition] Impression: [The COPD exacerbation] This note was generated with [employer] dictation software. It may contain incorrect words, spelling, and punctuation that were not noted in review of the chart prior to signing ED Disposition - Plan for ED Patient: Referrals: Jethro Goel [Primary Care Provider] -
--- NOTE | 2019-07-22 20:54 | ED.DEP ---
ED Disposition - Plan for ED Patient: Instructions: Copd Flare Prescriptions: Prednisone [Deltasone] 20 mg PO BID #4 tab Prescription Printed Referrals: Jethro Goel [Primary Care Provider] - 3-5 Days
[2019-07-22 21:21] VITALS: BP 162/83; PULSE 80; RESP 20; O2SAT 97
== END 2019-07-22 21:22 | disposition home or self-care (01) ==
LOC: ED 18:57
PROVIDERS: Emergency Provider Emergency Medicine; Family Provider Student in an Organized Health Care Education/Training Program; PCP Student in an Organized Health Care Education/Training Program
DX: J44.1 Chronic obstructive pulmonary disease with (acute) exacerbation (principal); I10 Essential (primary) hypertension; Z79.899 Other long term (current) drug therapy; Z86.73 Personal history of transient ischemic attack (TIA), and cerebral infarction without residual deficits; Z87.891 Personal history of nicotine dependence
CPT/HCPCS: 71045; 71275; 80048; 84484; 85025; 85379; 93005; 94640; 96374; 99284; Q9967; A4216

== ENCOUNTER 2019-07-28 00:19 | Emergency (ER) | payer MEDICARE, SELFPAY ==
--- NOTE | 2019-07-28 00:21 | EKG12_ITS ---
Test Reason : SOB Blood Pressure : / mmHG Vent. Rate : 061 BPM Atrial Rate : 061 BPM P-R Int : 160 ms QRS Dur : 082 ms QT Int : 442 ms P-R-T Axes : 067 -13 050 degrees QTc Int : 444 ms Normal sinus rhythm with sinus arrhythmia Normal ECG Confirmed by GENIE BARLOW, NATALIE ([id number]), slot editor GIANLUCA TAYLOR ([id number]) on 07/29/2019 10:48:03 AM Referred By: JUAN CARLOS Confirmed By:NATALIE PRESCOTT MD
--- NOTE | 2019-07-28 00:21 | RAD_ITS ---
STUDY: X-RAY CHEST REASON FOR EXAM: Female, 84 years old. Shortness of breath TECHNIQUE: PA and lateral views of the chest. COMPARISON: 07/22/2019 FINDINGS: The lungs are clear and expanded. There is no demonstrated pleural abnormality. Normal size heart. Small hiatal hernia. Normal mediastinum and rasheed. Normal visualized pulmonary arteries. There is atherosclerotic calcification of the aortic arch . Normal visualized thoracic spine. Normal visualized ribs, clavicles, and shoulders. There is no demonstrated abnormality of the visualized soft tissue structures of the upper abdomen. RAD/Chest PA and Lateral IMPRESSION: 1. No acute cardiopulmonary disease. 2. Small hiatal hernia. Electronically Signed: Marino Nesbitt MD at 3:11 EST Tel , Service support ,
--- NOTE | 2019-07-28 00:21 | ED.VIS.GEN ---
History of Present Illness Chief Complaint: Shortness of Breath Informant: Patient Onset: Today Context: Gradual Onset Timing: Intermittent Current Severity: Moderate Maximum Severity: Moderate Narrative: The patient presents to the emergency department shortness of breath. The patient is an 84-year-old female with history of hypertension and COPD. She is not on home oxygen. She states that about noon today, she felt like her chest was tight and she cannot catch her breath. She tried her rescue inhaler with little improvement. She said a scant cough. She denies any fevers or chills. She denies chest pain. The patient was seen here just about a week ago for the same. She was given breathing treatments with improvement. She was discharged home. She states that she is almost constantly on prednisone for her breathing. She denies any fevers or chills. Prior similar symptoms: Yes Recent Illness/Hospitalization: No Past Medical History - Allergies and Home Meds Allergies/Adverse Reactions: Allergies lisinopril Adverse Reaction (Verified 07/28/19 00:21) Swelling Primary Care Physician: Jethro Goel [Primary Care Provider] - Prior records reviewed: Yes Past Medical History: - - COPD, hypertension Surgical History: - - Surgery for stress incontinence including a sling procedure, status post recent nasal surgery Smoking Status: Former smoker - Family History Paternal Family History: Reports: - - prostate CA Maternal Family History: Reports: - - breast CA Review of Systems General: Denies: Chills, Fever, Sweats Eyes: Denies: Visual changes - bilaterally, Diplopia ENT: Denies: Rhinorrhea, Sore throat Cardiovascular: Denies: Chest pain, Palpitations Respiratory: Reports: Dyspnea, Cough. Denies: Dyspnea on exertion Gastrointestinal: Denies: Abdominal pain, Nausea, Vomiting, Diarrhea, Melena, Hematochezia Genitourinary: Denies: Dysuria, Hematuria, Frequency Musculoskeletal: Denies: Back pain, Extremity Pain Skin: Denies: Rash, Wounds Neurological: Denies: Headache, Weakness, Numbness Physical Exam Inital Vital Signs reviewed: Yes General: Well nourished, Well developed, No Acute Distress Head: Normocephalic, Atraumatic Eyes: Perrl, EOMI ENT: Moist mucous membranes, No rhinorrhea Neck: Supple, Nontender Cardiovascular: Regular rate, Regular rhythm, No murmurs Respiratory: No distress, Chest nontender, Decreased Air Movement Abdomen: Soft, Nontender, Nondistended, Normal bowel sounds Back: Nontender, Normal Inspection Extremities: Nontender, No edema Skin: Normal color, No rash Neurological: Alert, Oriented x3, Cranial nerves II-XII grossly intact, Normal Strength, Normal Sensation Psychological: Normal affect, Normal Mood Diagnostic/Tx/Re-eval Chest X-Ray - ED: 2 View, Normal, Heart, Lungs, Mediastinum, Chronic Changes Abnormal Lab Results 07/28/19 07/28/19 00:30 00:30 WBC 6.5 RBC 3.76 L Hgb 11.6 L Hct 36.4 L MCV 96.8 MCH 30.9 MCHC 31.9 L RDW Std Deviation 49.3 H RDW Coeff of Jung 14.3 Plt Count 213 MPV 9.2 Immature Gran % (Auto) 0.500 Neut % (Auto) 67.6 Lymph % (Auto) 20.3 Harper % (Auto) 8.8 Eos % (Auto) 2.3 Baso % (Auto) 0.5 Absolute Neuts (auto) 4.4 Absolute Lymphs (auto) 1.32 Nucleated RBC % 0 Sodium 144 Potassium 3.8 Chloride 112 H Carbon Dioxide 25.0 Anion Gap 7 BUN 13 Creatinine 1.43 H Estim Creat Clear Calc 27.42 Est GFR (MDRD) Af Amer 45 L Est GFR (MDRD) Non-Af 37 L BUN/Creatinine Ratio 9.1 L Glucose 129 H Calcium 9.0 Troponin I < 0.015 - Rhythm Strip Rhythm Strip: Sinus Rhythm Rate: 80 Ectopy: PVC(s) - EKG Initial EKG Interpretation: Sinus Rhythm, No Acute Injury Pattern Prior: Unchanged - Medical Decision Making Patient presents to the emergency department shortness of breath. She does have diminished lung sounds and prolonged expiration. She also has history of COPD. She is not oxygen dependent. IV was established. EKG was obtained. It was sinus rhythm without acute ischemia. Screening labs including cardiac enzymes were unremarkable. Her chest x-ray shows no focal infiltrative process, evidence of volume overload, or pneumothorax. After nebulized breathing treatments, the patient is feeling improved. She does not want to be discharged with steroids. She states I have been on these for too long. I do feel that this is reasonable. She did get a dose of Solu-Medrol here. She will continue her breathing treatments. I do not see clear indication for antibiotics. Again, she looks markedly improved without tachycardia, tachypnea or hypoxia. She will be discharged home. Impression 1. COPD exacerbation ED Disposition - Plan for ED Patient: Instructions: BRONCHITIS, No Antibiotic (Adult) Referrals: Jethro Goel [Primary Care Provider] -
[2019-07-28 00:22] VITALS: BP 174/87; PULSE 62; RESP 12; TEMP 36.8; O2SAT 98; BMI 27.7
[2019-07-28 00:24] VITALS: O2SAT 98
[2019-07-28 00:25] VITALS: PULSE 69; RESP 16; O2SAT 99
[2019-07-28] MEDS: MethylPREDNISolone 125 MG/2 ML Vial IV (00:32)
[2019-07-28 00:38] LABS: Absolute Lymphocyte Count 1.32 X10^3/uL (0.83-4.51); Absolute Neutrophil Count 4.4 X10^3/uL (2.0-7.7); Basophil# 0.03 X10^3/uL; Basophil% 0.5 % (0-1); Eosinophil# 0.15 X10^3/uL; Eosinophils% 2.3 % (0-5); Hematocrit 36.4 % (37-47); Hemoglobin 11.6 g/dL (12.0-15.0); Lymphocyte # 1.32 X10^3/ul (4.0); Lymphocyte % 20.3 % (19-41); Mean Corp Hgb Conc 31.9 g/dL (32-36); Mean Corpuscular Hgb 30.9 pg (27.0-32.0); Mean Corpuscular Volume 96.8 fL (81-99); Mean Platelet Vol. 9.2 fl (6.2-12.0); Monocyte# 0.57 X10^3/uL; Monocyte% 8.8 % (0-10); NRBC Flagged by Analyzer 0 % (0-5); Neutrophil % 67.6 % (47-70); Platelet Count 213 K/mm3 (150-450); RBC Distribution Width CV 14.3 % (11.6-14.6); RBC Distribution Width SD 49.3 fl (35.1-43.9); Red Blood Count 3.76 M/mm3 (4.2-5.4); White Blood Count 6.5 K/mm3 (4.4-11.0)
[2019-07-28] MEDS: Ipratropium/Albuterol Sulfate 3 ML AMPUL.NEB INHALATION (00:42)
[2019-07-28] MEDS: Albuterol 2.5 MG/3 ML VIAL.NEB. INHALATION (00:42)
[2019-07-28 00:51] VITALS: PULSE 65; RESP 14
[2019-07-28 00:55] LABS: Anion Gap 7 (5-15); BUN 13 mg/dL (7-18); BUN/Creat Ratio 9.1 RATIO (10-20); Chloride 112 mmol/L (98-107); Creatinine, Serum 1.43 mg/dL (0.55-1.02); EST Glomerular Filtration Rate 37 mL/min (>60); Est Glom Filt Rate - Afr Amer 45 mL/min (>60); Estimated Creatinine Clearance 27.42 ml/min; Glucose 129 mg/dL (74-106); Potassium 3.8 mmol/L (3.5-5.1); Sodium Level 144 mmol/L (136-145)
[2019-07-28 01:36] VITALS: BP 146/73; PULSE 87; RESP 13; O2SAT 98
== END 2019-07-28 01:44 | disposition home or self-care (01) ==
LOC: ED 00:40
PROVIDERS: Emergency Provider Emergency Medicine; Family Provider Student in an Organized Health Care Education/Training Program; PCP Student in an Organized Health Care Education/Training Program
DX: J44.1 Chronic obstructive pulmonary disease with (acute) exacerbation (principal); I10 Essential (primary) hypertension; Z79.899 Other long term (current) drug therapy; Z87.891 Personal history of nicotine dependence
CPT/HCPCS: 71046; 80048; 84484; 85025; 93005; 94640; 96361; 96374; 99285; J7040; A4216

== ENCOUNTER 2019-07-29 08:38 | Emergency (ER) | payer MEDICARE, SELFPAY ==
[2019-07-28 00:22] VITALS: BMI 27.7
[2019-07-29 08:39] VITALS: BP 191/94; PULSE 87; RESP 20; TEMP 36.6; O2SAT 98; BMI 26.6
[2019-07-29 08:59] VITALS: O2SAT 95
[2019-07-29] MEDS: Doxycycline 100 MG CAPSULE PO (09:03)
[2019-07-29] MEDS: Ipratropium/Albuterol Sulfate 3 ML AMPUL.NEB INHALATION (09:34)
[2019-07-29 09:36] VITALS: PULSE 59; RESP 18; O2SAT 95
--- NOTE | 2019-07-29 09:50 | ED.VISSUMM ---
- ER Visit Summary Date of Service: 07/29/19 Chief Complaint: [Shortness of breath] History of Present Illness: The patient is a 84 F [presents to the emergency department with dyspnea that started around 3 AM. This patient's third visit to the ER last 5 days for the same complaint. Patient has history of COPD as well as hypertension, high cholesterol, anemia, and chronic renal failure. Patient was seen in the emergency department yesterday for the same complaint and had EKG as well as lab work and a chest x-ray that were unremarkable. 5 days ago she was seen by myself for the same complaint and had blood work as well as EKG and a CTA of the chest which were all unremarkable. Patient states that she woke up at 3 AM feeling very short of breath and became anxious and concerned. She tried using her inhaler and then a aerosol. Patient comes in holding her paperwork stating she was diagnosed with bronchitis but she was not given any antibiotics. Patient denies any chest pain. She denies any fever. She denies recent travel or surgery.] Patient does have a cough and at times bringing up some yellow sputum. Physical Examination: [HEENT-PERRLA, EOMI. Cranial nerves II through XII grossly intact. TMs clear. Mucous membranes moist. No adenopathy. Cardiovascular-regular rate and rhythm without murmur or ectopy Lungs-good aeration bilaterally. Patient has just some very faint expiratory wheezes noted. No accessory muscle use or retractions. No conversational dyspnea. Patient looks comfortable. Abdomen-normoactive bowel sounds, soft, nontender, no rebound or rigidity, no peritoneal signs. Extremities-intact ?4, normal range of motion, normal pulses, atraumatic] Test Results: [None indicated] Emergency Department Course and Treatment: [Patient was given a DuoNeb aerosol and 1 dose of doxycycline. I discussed with patient her multiple visits for the same complaint. Brought up the possibility of anxiety disorders possibly contributing to her symptomatology. Patient states that it is possible that she may develop shortness of breath and then become anxious and quite worried. Patient will discuss this with her primary care physician.] Treatment Plan: [She will be started on doxycycline. Patient recently was treated with steroids and had 1 dose of Solu-Medrol yesterday I do not feel further treatment with steroids as indicated patient also does not want to be on steroids.] Disposition: [Discharged home in stable condition.] Impression: [Dyspnea COPD exacerbation] This note was generated with [employer] dictation software. It may contain incorrect words, spelling, and punctuation that were not noted in review of the chart prior to signing ED Disposition - Plan for ED Patient: Referrals: Jethro Goel [Primary Care Provider] -
--- NOTE | 2019-07-29 09:54 | ED.DEP ---
ED Disposition - Plan for ED Patient: Instructions: Copd Flare Prescriptions: Doxycycline 100 mg PO BID #20 cap Prescription Printed Referrals: Jethro Goel [Primary Care Provider] - 3-5 Days
== END 2019-07-29 10:00 | disposition home or self-care (01) ==
LOC: ED 09:10
PROVIDERS: Emergency Provider Emergency Medicine; Family Provider Student in an Organized Health Care Education/Training Program; PCP Student in an Organized Health Care Education/Training Program
DX: J44.1 Chronic obstructive pulmonary disease with (acute) exacerbation (principal); I12.9 Hypertensive chronic kidney disease with stage 1 through stage 4 chronic kidney disease, or unspecified chronic kidney disease; N18.9 Chronic kidney disease, unspecified; D63.1 Anemia in chronic kidney disease; E78.00 Pure hypercholesterolemia, unspecified; Z79.899 Other long term (current) drug therapy; Z87.891 Personal history of nicotine dependence; Z86.73 Personal history of transient ischemic attack (TIA), and cerebral infarction without residual deficits
CPT/HCPCS: 94640; 99283

== ENCOUNTER 2019-09-01 09:37 | Emergency (ER) | payer MEDICARE, SELFPAY ==
[2019-09-01 09:38] VITALS: BP 154/101; PULSE 90; RESP 16; TEMP 36.6; O2SAT 98; BMI 25.9
--- NOTE | 2019-09-01 09:46 | RAD_ITS ---
STUDY: X-RAY CHEST REASON FOR EXAM: Female, 84 years old. COPD, INCREASED SOB TECHNIQUE: PA and lateral views of the chest. COMPARISON: 07/28/2019 FINDINGS: The lungs are clear and expanded. There is no demonstrated pleural abnormality. Normal size heart. Moderate-sized hiatal hernia. Normal visualized pulmonary arteries. Normal visualized aortic arch and descending thoracic aorta. Normal visualized thoracic spine. Normal visualized ribs, clavicles, and shoulders. There is no demonstrated abnormality of the visualized soft tissue structures of the upper abdomen. RAD/Chest PA and Lateral IMPRESSION: No active disease. Electronically Signed: Riccardo Doty MD at 10:25 EST Tel , Service support ,
--- NOTE | 2019-09-01 09:49 | ED.DCSUM_ITS ---
- ER Visit Summary Date of Service: 09/01/19 Chief Complaint: [Shortness of breath] History of Present Illness: The patient is a 84 F [presents to the emergency department complaint of shortness of breath and stating that her COPD is flaring up. Patient has history of COPD and multiple visits to this department for same. Her last visit was end of July and she states that she been doing relatively well at home since that time until last evening around midnight. Patient used her inhaler at midnight and used her nebulizer this morning but continues to feel short of breath. She is had minimal cough. No sputum production. She denies any chest pain. She denies any fevers. Patient quit smoking 2 years ago. Patient also with history of hypertension, anemia, high cholesterol, chronic kidney disease, anxiety, and GERD.] Patient is wondering if this can be anxiety related because when she feels like she cannot breathe she might be getting overly excited and then she comes to the ER frequently for these complaints. Physical Examination: [HEENT-PERRLA, EOMI. Cranial nerves II through XII grossly intact. TMs clear. Mucous membranes moist. No adenopathy. Cardiovascular-regular rate and rhythm without murmur or ectopy Lungs-good aeration bilaterally. She has some faint expiratory wheezes. No accessory muscle use or retractions. No conversational dyspnea. Patient is in no acute distress. Abdomen-normoactive bowel sounds, soft, nontender, no rebound or rigidity, no peritoneal signs. Extremities-intact ?4, normal range of motion, normal pulses, atraumatic] Test Results: [Chest x-ray obtained showed changes of COPD otherwise nothing acute.] Emergency Department Course and Treatment: [Patient received prednisone and was given DuoNeb aerosol followed by second albuterol aerosol. She felt markedly improved. Patient asked if she could have something for anxiety potentially to see if that would help her symptoms.] Treatment Plan: [She will be given a prescription for prednisone and PRN Ativan. Patient vies to follow-up with primary care physician 3 to 5 days.] Disposition: [Discharged home in stable condition. Patient advised to return if increasing shortness of breath, fever, or condition should worsen anyway. Impression: [COPD exacerbation Anxiety] This note was generated with [employer] software. It may contain incorrect words, spelling, and punctuation that were not noted in review of the chart prior to signing ED Disposition - Plan for ED Patient: Referrals: Jethro Goel [Primary Care Provider] -
[2019-09-01] MEDS: predniSONE 20 MG Tablet 40 MG PO (09:56)
[2019-09-01 09:57] VITALS: O2SAT 96
[2019-09-01 11:20] VITALS: PULSE 80; RESP 18; RESP 22; O2SAT 95
[2019-09-01] MEDS: Albuterol 2.5 MG/3 ML VIAL.NEB. INHALATION (11:20)
[2019-09-01] MEDS: Ipratropium/Albuterol Sulfate 3 ML AMPUL.NEB INHALATION (11:20)
--- NOTE | 2019-09-01 11:54 | ED.DEP ---
ED Disposition - Plan for ED Patient: Instructions: Copd Flare, Anxiety Reaction Prescriptions: Lorazepam [Ativan] 0.5 mg PO TID PRN #10 tab PRN Reason: Anxiety Prescription Printed Prednisone [Deltasone] 20 mg PO BID #10 tab Prescription Printed Referrals: Jethro Goel [Primary Care Provider] - 3-5 Days
== END 2019-09-01 12:04 | disposition home or self-care (01) ==
PROVIDERS: Emergency Provider Emergency Medicine; Family Provider Student in an Organized Health Care Education/Training Program; PCP Student in an Organized Health Care Education/Training Program
DX: J44.1 Chronic obstructive pulmonary disease with (acute) exacerbation (principal); F41.9 Anxiety disorder, unspecified; I12.9 Hypertensive chronic kidney disease with stage 1 through stage 4 chronic kidney disease, or unspecified chronic kidney disease; N18.9 Chronic kidney disease, unspecified; E78.00 Pure hypercholesterolemia, unspecified; K21.9 Gastro-esophageal reflux disease without esophagitis; D64.9 Anemia, unspecified; Z86.73 Personal history of transient ischemic attack (TIA), and cerebral infarction without residual deficits; Z79.899 Other long term (current) drug therapy; Z87.891 Personal history of nicotine dependence
CPT/HCPCS: 71046; 94640; 99251; 99283; G0463

== ENCOUNTER 2019-09-09 16:01 | Emergency (ER) | payer MEDICARE, SELFPAY ==
[2019-09-09 16:01] VITALS: BP 133/81; PULSE 69; RESP 24; TEMP 36.8; O2SAT 97; BMI 27.1
--- NOTE | 2019-09-09 16:15 | EKG12_ITS ---
Test Reason : SOB Blood Pressure : / mmHG Vent. Rate : 061 BPM Atrial Rate : 061 BPM P-R Int : 154 ms QRS Dur : 084 ms QT Int : 410 ms P-R-T Axes : 056 -17 028 degrees QTc Int : 412 ms Normal sinus rhythm with sinus arrhythmia Normal ECG Confirmed by SHIRA BARLOW, ÓSCAR ([id number]), offline editor RAJESH MARTIN ([id number] on 09/10/2019 10:39:11 AM Referred By: BARB/REGGIE Confirmed By:TANIA SILVA MD
--- NOTE | 2019-09-09 16:17 | ED.VIS.DYS ---
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 Negative for: Ear pain, Fever, Sore throat, Sweats Chest Pain: Tightness Narrative: Patient felt like she woke up with cold symptoms this morning. Feels like her COPD has been worse all day. Having some nasal congestion. Her albuterol was not really helping so she presents with persistent chest tightness and dyspnea. No recent swelling in the legs. No recent hospitalization, long travel, surgery, or calf pain. No history of DVT or PE. No history of cardiac problems that she knows of. No fevers. No myalgias. No GI symptoms. - Past Medical History (1) Seborrheic keratoses Status: Chronic (2) Anemia Status: Chronic (3) Anxiety Status: Chronic (4) Bronchiectasis Status: Chronic (5) CVA (cerebral vascular accident) Status: Chronic (6) Chronic anemia Status: Chronic (7) Chronic renal failure, stage 3 (moderate) Status: Chronic (8) Diverticula of colon Status: Chronic (9) Dysmetabolic syndrome Status: Chronic (10) GERD (gastroesophageal reflux disease) Status: Chronic (11) HLD (hyperlipidemia) Status: Chronic (12) HTN (hypertension) Status: Chronic (13) Lichen sclerosus Status: Chronic (14) Multiple pulmonary nodules Status: Chronic Past Medical History - Allergies and Home Meds Allergies/Adverse Reactions: Allergies lisinopril Adverse Reaction (Verified 09/09/19 16:03) Swelling Primary Care Physician: Jethro Goel [Primary Care Provider] - 3-5 Days Surgical History: - - Surgery for stress incontinence including a sling procedure, status post recent nasal surgery Lives: Alone Smoking Status: Former smoker - Family History Paternal Family History: Reports: - - prostate CA Maternal Family History: Reports: - - breast CA Review of Systems General: Reports: Malaise. Denies: Chills, Fever, Sweats Eyes: Denies: Visual changes - bilaterally, Diplopia ENT: Denies: Rhinorrhea, Sore throat Cardiovascular: Reports: Chest pain. Denies: Palpitations Respiratory: Reports: Dyspnea, Cough, Dyspnea on exertion, Orthopnea - Makes coughing and wheezing worse. Denies: Sputum Gastrointestinal: Denies: Abdominal pain, Nausea, Vomiting, Diarrhea, Melena, Hematochezia Genitourinary: Denies: Dysuria, Hematuria, Frequency Musculoskeletal: Denies: Back pain, Swelling, Extremity Pain Skin: Denies: Rash, Wounds Neurological: Denies: Headache, Weakness, Numbness Physical Exam Vital Signs/Narrative: Vital Signs Temp Pulse Resp BP Pulse Ox 09/09/19 16:01 98.2 F 69 24 H 133/81 H 97 Inital Vital Signs reviewed: Yes General: Well nourished, Well developed, No Acute Distress Head: Normocephalic, Atraumatic Eyes: Perrl, EOMI ENT: Moist mucous membranes, No rhinorrhea, TM's clear. Negative for: Sinus tenderness Neck: Supple, Nontender, No lymphadenopathy, No JVD Cardiovascular: Regular rate, Regular rhythm, No murmurs Respiratory: No distress, Chest nontender, Diminished - Throughout, symmetrically. Negative for: Rales, Rhonchi, Wheezing Abdomen: Soft, Nontender, Nondistended, Normal bowel sounds Back: Nontender, Normal Inspection. Negative for: CVA tenderness Extremities: Nontender, No edema. Negative for: Calf Tenderness Skin: Normal color, No rash, No Trauma Neurological: Alert, Oriented x3, Cranial nerves II-XII grossly intact, Normal Strength, Normal Sensation, Normal Gait Psychological: Normal affect, Normal Mood Diagnostic/Tx/Re-eval Clinical Impression(s) from Imaging Studies Chest X-Ray 09/09/19 17:00 IMPRESSION: No acute cardiopulmonary findings Electronically Signed: Sukh Ervin, at 17:48 EST Tel , Service support , - Rhythm Strip Rhythm Strip: Sinus Rhythm Rate: 64 Ectopy: None - EKG Initial EKG Interpretation: Sinus Rhythm, No Acute Injury Pattern - normal EKG Treatment - Dyspnea: Albuterol, Atrovent, Steroid Repeat Evaluation: Improved - Medical Decision Making Patient feels much better after nebulizer treatments. Therefore, I do not think we need to consider pulmonary embolus at this time. She feels like it is her COPD, her x-ray shows no pneumonia, her pulse ox was good even prior to treatment. Discharged on antibiotics and steroids and advised to follow-up. She is comfortable with that plan. ED Disposition - Plan for ED Patient: Disposition: Home or Assisted Living Diagnosis: COPD exacerbation, Acute bronchitis Instructions: BRONCHITIS, Antiobiotic Treatment (Adult), Copd Flare Prescriptions: Doxycycline Hyclate 1 cap PO BID #14 cap Prescription Printed Prednisone 10 mg PO UD #29 tab Prescription Printed Referrals: Jethro Goel [Primary Care Provider] - 3-5 Days
[2019-09-09 16:30] VITALS: PULSE 75; RESP 18
[2019-09-09] MEDS: Albuterol 2.5 MG/3 ML VIAL.NEB. INHALATION ×2 (16:30)
[2019-09-09] MEDS: Ipratropium/Albuterol Sulfate 3 ML AMPUL.NEB INHALATION (16:31)
[2019-09-09] MEDS: MethylPREDNISolone 125 MG/2 ML Vial IV (16:32)
[2019-09-09 16:47] VITALS: BP 133/81; PULSE 63; RESP 18; TEMP 36.8; O2SAT 97
[2019-09-09 16:50] VITALS: O2SAT 98
--- NOTE | 2019-09-09 17:00 | RAD_ITS ---
STUDY: X-RAY CHEST REASON FOR EXAM: Female, 84 years old. Chest pain TECHNIQUE: Single frontal view of the chest. COMPARISON: 09/01/2019 FINDINGS: Cardiac silhouette unremarkable. Pulmonary vascularity unremarkable. Aorta atherosclerotic. No focal airspace opacities. No pleural effusions. Upper abdomen demonstrate a hiatal hernia. Osseous structures intact. No pneumothorax. RAD/Chest PA and Lateral IMPRESSION: No acute cardiopulmonary findings Electronically Signed: Sukh Ervin, at 17:48 EST Tel , Service support ,
[2019-09-09 17:46] VITALS: BP 167/87; PULSE 88; RESP 17; TEMP 36.7; O2SAT 94
[2019-09-09 18:07] VITALS: TEMP 36.7
== END 2019-09-09 18:26 | disposition home or self-care (01) ==
PROVIDERS: Emergency Provider Emergency Medicine; Family Provider Student in an Organized Health Care Education/Training Program; PCP Student in an Organized Health Care Education/Training Program
DX: J44.0 Chronic obstructive pulmonary disease with (acute) lower respiratory infection (principal); J20.9 Acute bronchitis, unspecified; J44.1 Chronic obstructive pulmonary disease with (acute) exacerbation; I12.9 Hypertensive chronic kidney disease with stage 1 through stage 4 chronic kidney disease, or unspecified chronic kidney disease; N18.3 Chronic kidney disease, stage 3 (moderate); D63.1 Anemia in chronic kidney disease; E78.5 Hyperlipidemia, unspecified; K21.9 Gastro-esophageal reflux disease without esophagitis; F41.9 Anxiety disorder, unspecified; Z87.891 Personal history of nicotine dependence; Z86.73 Personal history of transient ischemic attack (TIA), and cerebral infarction without residual deficits
CPT/HCPCS: 71046; 93005; 94640; 96374; 99283; A4216

== ENCOUNTER 2019-10-21 06:54 | Emergency (ER) | payer MEDICARE, SELFPAY ==
[2019-10-21 06:55] VITALS: BP 154/88; PULSE 82; RESP 20; TEMP 36.5; O2SAT 96; BMI 27.2
--- NOTE | 2019-10-21 06:57 | RAD_ITS ---
STUDY: X-RAY CHEST REASON FOR EXAM: Female, 84 years old. SOB X 2 YRS, HX SMOKER TECHNIQUE: PA and lateral views of the chest. COMPARISON: 09/09/2019. FINDINGS: Cardiac silhouette unremarkable. Pulmonary vascularity unremarkable. Aorta calcified. No focal patchy airspace opacities. No pleural effusions. COPD. Small hiatal hernia. Osseous structures intact with degenerative changes. No pneumothorax. RAD/Chest PA and Lateral IMPRESSION: No acute cardiopulmonary findings Electronically Signed: Bernard Gibbons DO at 8:02 EST Tel , Service support ,
--- NOTE | 2019-10-21 06:57 | EKG12_ITS ---
Test Reason : Blood Pressure : / mmHG Vent. Rate : 062 BPM Atrial Rate : 062 BPM P-R Int : 166 ms QRS Dur : 086 ms QT Int : 418 ms P-R-T Axes : 062 -18 026 degrees QTc Int : 424 ms Sinus rhythm with Premature atrial complexes Otherwise normal ECG Confirmed by MACO WEISS ([id number]), international editorial producer GIANLUCA TAYLOR ([id number]) on 10/27/2019 2:05:37 PM Referred By: BARB Confirmed By:MACO WEISS
--- NOTE | 2019-10-21 06:58 | ED.DCSUM_ITS ---
History of Present Illness Chief Complaint: Shortness of Breath Informant: Patient Onset: Today Context: Gradual Onset Timing: Continuous Current Severity: Moderate Maximum Severity: Severe Narrative: The patient is an 84-year-old female with history of COPD that presents to the emergency department shortness of breath. Patient states shortness of breath began this morning. She states that she has tried breathing treatments little improvement. She had a scant nonproductive cough. She denies any chest pain. She denies any fevers or chills. She denies orthopnea. Patient has had multiple exacerbations of COPD in the past and states this feels similar. Her last steroid use was about 8 weeks ago. She states up until last night, she is been in her normal state of health. Prior similar symptoms: Yes Recent Illness/Hospitalization: Yes Past Medical History - Allergies and Home Meds Allergies/Adverse Reactions: Allergies lisinopril Adverse Reaction (Verified 10/21/19 07:01) Swelling Primary Care Physician: Jethro Goel [Primary Care Provider] - Prior records reviewed: Yes Past Medical History: - - COPD, hypertension Surgical History: - - Surgery for stress incontinence including a sling procedure, status post recent nasal surgery Smoking Status: Former smoker - Family History Paternal Family History: Reports: - - prostate CA Maternal Family History: Reports: - - breast CA Review of Systems General: Denies: Chills, Fever, Sweats Eyes: Denies: Visual changes - bilaterally, Diplopia ENT: Denies: Rhinorrhea, Sore throat Cardiovascular: Denies: Chest pain, Palpitations Respiratory: Reports: Dyspnea, Cough. Denies: Dyspnea on exertion Gastrointestinal: Denies: Abdominal pain, Nausea, Vomiting, Diarrhea, Melena, Hematochezia Genitourinary: Denies: Dysuria, Hematuria, Frequency Musculoskeletal: Denies: Back pain, Extremity Pain Skin: Denies: Rash, Wounds Neurological: Denies: Headache, Weakness, Numbness Physical Exam Vital Signs/Narrative: Vital Signs Temp Pulse Resp BP Pulse Ox 10/21/19 06:55 97.7 F L 82 20 H 154/88 H 96 Inital Vital Signs reviewed: Yes General: Well nourished, Well developed, No Acute Distress Head: Normocephalic, Atraumatic Eyes: Perrl, EOMI ENT: Moist mucous membranes, No rhinorrhea Neck: Supple, Nontender Cardiovascular: Regular rate, Regular rhythm, No murmurs Respiratory: No distress, Chest nontender, Wheezing Abdomen: Soft, Nontender, Nondistended, Normal bowel sounds Back: Nontender, Normal Inspection Extremities: Nontender, No edema Skin: Normal color, No rash Neurological: Alert, Oriented x3, Cranial nerves II-XII grossly intact, Normal Strength, Normal Sensation Psychological: Normal affect, Normal Mood Diagnostic/Tx/Re-eval Chest X-Ray - ED: 2 View, Unchanged, Normal, Mediastinum, Bony Structures, Chronic Changes Abnormal Lab Results 10/21/19 10/21/19 07:05 07:05 WBC 6.4 RBC 3.78 L Hgb 11.8 L Hct 37.9 MCV 100.3 H MCH 31.2 MCHC 31.1 L RDW Std Deviation 51.2 H RDW Coeff of Jung 14.0 Plt Count 240 MPV 9.8 Immature Gran % (Auto) 0.200 Neut % (Auto) 77.5 H Lymph % (Auto) 12.8 L [place] % (Auto) 5.9 Eos % (Auto) 2.7 Baso % (Auto) 0.9 Absolute Neuts (auto) 5.0 Absolute Lymphs (auto) 0.82 L Nucleated RBC % 0 Sodium 141 Potassium 3.9 Chloride 109 H Carbon Dioxide 28.0 Anion Gap 4 L BUN 15 Creatinine 1.64 H Estim Creat Clear Calc 23.90 Est GFR (MDRD) Af Amer 38 L Est GFR (MDRD) Non-Af 32 L BUN/Creatinine Ratio 9.1 L Glucose 124 H Calcium 9.2 - Rhythm Strip Rhythm Strip: Sinus Rhythm Rate: 80 Ectopy: None - Medical Decision Making Patient presents with shortness of breath. EKG was obtained which was sinus rhythm without acute ischemia. There is normal axis and intervals. It was unchanged from prior. Patient was given nebulized breathing treatments and Solu-Medrol. She had market improvement of aeration. Chest x-ray does not show focal infiltrative process. She has not had fever or change in sputum. I do not see a clear indication for antibiotics at this time. I do however feel the patient would benefit from prednisone burst. She is comfortable with this plan. I do feel that she is safe for outpatient therapy. Impression 1. COPD exacerbation ED Disposition - Plan for ED Patient: Instructions: BRONCHITIS, No Antibiotic (Adult) Prescriptions: Prednisone [Deltasone] 40 mg PO DAILY #10 tab Prescription Printed Referrals: Jethro Goel [Primary Care Provider] -
[2019-10-21 07:00] VITALS: PULSE 63; RESP 20
[2019-10-21] MEDS: Albuterol 2.5 MG/3 ML VIAL.NEB. INHALATION ×2 (07:06)
[2019-10-21] MEDS: Ipratropium/Albuterol Sulfate 3 ML AMPUL.NEB INHALATION (07:06)
[2019-10-21] MEDS: 0.9% Normal Saline 1,000 ML 150 ML IV (07:07)
[2019-10-21] MEDS: MethylPREDNISolone 125 MG/2 ML Vial IV (07:07)
[2019-10-21 07:16] LABS: Absolute Lymphocyte Count 0.82 X10^3/uL (0.83-4.51); Basophil# 0.06 X10^3/uL; Basophil% 0.9 % (0-1); Eosinophil# 0.17 X10^3/uL; Eosinophils% 2.7 % (0-5); Hematocrit 37.9 % (37-47); Hemoglobin 11.8 g/dL (12.0-15.0); Lymphocyte # 0.82 X10^3/ul (4.0); Lymphocyte % 12.8 % (19-41); Mean Corp Hgb Conc 31.1 g/dL (32-36); Mean Corpuscular Hgb 31.2 pg (27.0-32.0); Mean Corpuscular Volume 100.3 fL (81-99); Mean Platelet Vol. 9.8 fl (6.2-12.0); Monocyte# 0.38 X10^3/uL; Monocyte% 5.9 % (0-10); NRBC Flagged by Analyzer 0 % (0-5); Neutrophil # 4.97 X10^3/uL (2.7-7.7); Neutrophil % 77.5 % (47-70); Platelet Count 240 K/mm3 (150-450); RBC Distribution Width SD 51.2 fl (35.1-43.9); Red Blood Count 3.78 M/mm3 (4.2-5.4); White Blood Count 6.4 K/mm3 (4.4-11.0)
[2019-10-21 07:29] LABS: Anion Gap 4 (5-15); BUN 15 mg/dL (7-18); BUN/Creat Ratio 9.1 RATIO (10-20); Calcium,Total 9.2 mg/dL (8.5-10.1); Chloride 109 mmol/L (98-107); Creatinine, Serum 1.64 mg/dL (0.55-1.02); EST Glomerular Filtration Rate 32 mL/min (>60); Est Glom Filt Rate - Afr Amer 38 mL/min (>60); Glucose 124 mg/dL (74-106); Potassium 3.9 mmol/L (3.5-5.1); Sodium Level 141 mmol/L (136-145)
[2019-10-21] MEDS: LORazepam 0.5 MG Tablet PO (07:56)
== END 2019-10-21 08:07 | disposition home or self-care (01) ==
LOC: ED 07:24
PROVIDERS: Emergency Provider Emergency Medicine; PCP Student in an Organized Health Care Education/Training Program
DX: J44.1 Chronic obstructive pulmonary disease with (acute) exacerbation (principal); Z87.891 Personal history of nicotine dependence; Z79.899 Other long term (current) drug therapy
CPT/HCPCS: 71046; 80048; 85025; 93005; 94640; 96361; 96374; 99285; J7030; A4216

== ENCOUNTER 2019-10-24 16:51 | Emergency (ER) | payer MEDICARE, SELFPAY ==
[2019-10-24 16:52] VITALS: BP 155/92; PULSE 70; RESP 19; TEMP 36.7; O2SAT 97; BMI 25.3
[2019-10-24 17:28] VITALS: O2SAT 95
--- NOTE | 2019-10-24 17:45 | EKG12_ITS ---
Test Reason : SOB Blood Pressure : / mmHG Vent. Rate : 063 BPM Atrial Rate : 063 BPM P-R Int : 160 ms QRS Dur : 090 ms QT Int : 428 ms P-R-T Axes : 062 -18 043 degrees QTc Int : 437 ms Normal sinus rhythm Normal ECG Confirmed by SHIRA BARLOW, ÓSCAR ([id number]), senior editor FLORENTIN MORLEY ([id number]) on 10/26/2019 2:26:55 PM Referred By: JUAN CARLOS Confirmed By:TANIA SILVA MD
--- NOTE | 2019-10-24 17:46 | ED.VIS.GEN ---
History of Present Illness Chief Complaint: Shortness of Breath Informant: Patient Onset: Today Narrative: Patient has a history of COPD and chronic dyspnea. She states she woke up this morning feeling more short of breath. She feels congested in her head and chest. She is coughing up green sputum and feels like she is wheezing. She states she does not feel that she is getting much improvement with her inhaler. She has not noted fever or chills. She denies chest pain. - Past Medical History (1) Anemia Status: Chronic (2) Anxiety Status: Chronic (3) Bronchiectasis Status: Chronic (4) CVA (cerebral vascular accident) Status: Chronic (5) Chronic renal failure, stage 3 (moderate) Status: Chronic (6) GERD (gastroesophageal reflux disease) Status: Chronic (7) HLD (hyperlipidemia) Status: Chronic (8) HTN (hypertension) Status: Chronic (9) Lichen sclerosus Status: Chronic (10) Multiple pulmonary nodules Status: Chronic Past Medical History - Allergies and Home Meds Allergies/Adverse Reactions: Allergies lisinopril Adverse Reaction (Verified 10/21/19 07:01) Swelling Primary Care Physician: Jethro Goel [Primary Care Provider] - Prior records reviewed: Yes Surgical History: - - Surgery for stress incontinence including a sling procedure, status post recent nasal surgery Lives: Alone Smoking Status: Former smoker - Family History Paternal Family History: Reports: - - prostate CA Maternal Family History: Reports: - - breast CA Review of Systems General: Denies: Chills, Fever Eyes: Denies: Visual changes - bilaterally ENT: Denies: Bilateral ear pain, Sore throat Cardiovascular: Denies: Chest pain Respiratory: Reports: Dyspnea, Cough, Sputum Gastrointestinal: Denies: Abdominal pain, Nausea, Vomiting, Diarrhea Genitourinary: Denies: Dysuria Musculoskeletal: Denies: Extremity Pain Skin: Denies: Rash Neurological: Denies: Headache Allergy: Denies: Uticaria Physical Exam Vital Signs/Narrative: Vital Signs Temp Pulse Resp BP Pulse Ox 10/24/19 16:52 98.1 F 70 19 H 155/92 H 97 Inital Vital Signs reviewed: Yes General: Well nourished, Well developed ENT: Moist mucous membranes Neck: Supple Cardiovascular: Regular rate, Regular rhythm Respiratory: No distress, CTA bilaterally Abdomen: Soft, Nontender Skin: Normal color Neurological: Alert, Oriented x3 Psychological: Normal affect Diagnostic/Tx/Re-eval Laboratory Results 10/24/19 10/24/19 18:00 18:00 WBC 5.7 RBC 3.44 L Hgb 11.0 L Hct 34.6 L MCV 100.6 H MCH 32.0 MCHC 31.8 L RDW Std Deviation 51.3 H RDW Coeff of Jung 13.9 Plt Count 206 MPV 9.9 Immature Gran % (Auto) 0.200 Neut % (Auto) 67.0 Lymph % (Auto) 19.8 [place] % (Auto) 8.0 Eos % (Auto) 3.9 Baso % (Auto) 1.1 H Absolute Neuts (auto) 3.8 Absolute Lymphs (auto) 1.12 Nucleated RBC % 0 Sodium 144 Potassium 4.0 Chloride 113 H Carbon Dioxide 27.0 Anion Gap 4 L BUN 16 Creatinine 1.65 H Estim Creat Clear Calc 24.68 Est GFR (MDRD) Af Amer 38 L Est GFR (MDRD) Non-Af 32 L BUN/Creatinine Ratio 9.7 L Glucose 104 Calcium 9.2 - EKG Initial EKG Interpretation: Sinus Rhythm - Sinus at 62 with PACs. No acute ischemia. - Medical Decision Making Patient was given a DuoNeb treatment as well as a dose of Pepcid as she felt like she was having a lot of reflux. On repeat evaluation she feels significantly improved and is asking if she can go home. 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 She is already on Protonix, but states she forgot to take it this morning. She is encouraged to make sure she takes this regularly. ED Disposition - Plan for ED Patient: Disposition: Home or Assisted Living Diagnosis: Dyspnea Instructions: ED Dyspnea Referrals: Jethro Goel [Primary Care Provider] - 1 Week
[2019-10-24] MEDS: Ipratropium/Albuterol Sulfate 3 ML AMPUL.NEB INHALATION (17:55)
[2019-10-24 17:57] VITALS: PULSE 68; RESP 18
[2019-10-24 18:11] LABS: Absolute Lymphocyte Count 1.12 X10^3/uL (0.83-4.51); Absolute Neutrophil Count 3.8 X10^3/uL (2.0-7.7); Basophil# 0.06 X10^3/uL; Basophil% 1.1 % (0-1); Eosinophil# 0.22 X10^3/uL; Eosinophils% 3.9 % (0-5); Hematocrit 34.6 % (37-47); Lymphocyte # 1.12 X10^3/ul (4.0); Lymphocyte % 19.8 % (19-41); Mean Corp Hgb Conc 31.8 g/dL (32-36); Mean Corpuscular Volume 100.6 fL (81-99); Mean Platelet Vol. 9.9 fl (6.2-12.0); Monocyte# 0.45 X10^3/uL; NRBC Flagged by Analyzer 0 % (0-5); Platelet Count 206 K/mm3 (150-450); RBC Distribution Width CV 13.9 % (11.6-14.6); RBC Distribution Width SD 51.3 fl (35.1-43.9); Red Blood Count 3.44 M/mm3 (4.2-5.4); White Blood Count 5.7 K/mm3 (4.4-11.0)
[2019-10-24] MEDS: Famotidine 20 MG Tablet 40 MG PO (18:19)
[2019-10-24 18:24] LABS: Anion Gap 4 (5-15); BUN 16 mg/dL (7-18); BUN/Creat Ratio 9.7 RATIO (10-20); Calcium,Total 9.2 mg/dL (8.5-10.1); Chloride 113 mmol/L (98-107); Creatinine, Serum 1.65 mg/dL (0.55-1.02); EST Glomerular Filtration Rate 32 mL/min (>60); Est Glom Filt Rate - Afr Amer 38 mL/min (>60); Estimated Creatinine Clearance 24.68 ml/min; Glucose 104 mg/dL (74-106); Sodium Level 144 mmol/L (136-145)
[2019-10-24 19:00] VITALS: BP 177/78; PULSE 73; RESP 21; O2SAT 95
--- NOTE | 2019-10-24 19:13 | CM.ED ---
Social Work Completing Palliative Care Screen tool, patient meeting criteria. Met with patient in room. Introduced self as well as social media intern role. Patient agreeable to speaking with this social media intern. Patient believes that patient shortness of breath is connected with patient anxiety. Patient voicing plan to speak with PCP about starting a medication for anxiety. This social media intern broached topic of Palliative Care, patient agreeable to receiving information and plans to speak with PCP before making referral/contacting palliative medicine. Patient provided with brochure on Palliative Care. This social media intern able to facilitate a conversation with patient about anxiety and how anxiety can play an impact on patient other medical diagnosis. Active support and listening provided. Patient stating to have positive support from family and to be able to function within the home. Patient son has been staying with patient some, as needed. Lily SORTO, FRANCISCO
[2019-10-24 20:11] VITALS: BP 177/78; PULSE 73; RESP 21; O2SAT 95
== END 2019-10-24 20:12 | disposition home or self-care (01) ==
PROVIDERS: Emergency Provider Emergency Medicine; PCP Student in an Organized Health Care Education/Training Program
DX: R06.00 Dyspnea, unspecified (principal); E78.5 Hyperlipidemia, unspecified; I12.9 Hypertensive chronic kidney disease with stage 1 through stage 4 chronic kidney disease, or unspecified chronic kidney disease; N18.3 Chronic kidney disease, stage 3 (moderate); Z79.899 Other long term (current) drug therapy; Z87.891 Personal history of nicotine dependence; J44.9 Chronic obstructive pulmonary disease, unspecified; D64.9 Anemia, unspecified; Z86.73 Personal history of transient ischemic attack (TIA), and cerebral infarction without residual deficits; K21.9 Gastro-esophageal reflux disease without esophagitis
CPT/HCPCS: 80048; 85025; 93005; 94640; 99284

== ENCOUNTER 2019-11-20 06:56 | Emergency (ER) | payer MEDICARE, SELFPAY ==
[2019-11-20 06:57] VITALS: BP 193/93; PULSE 72; RESP 18; TEMP 37.1; O2SAT 98; BMI 25.8
--- NOTE | 2019-11-20 07:05 | EKG12_ITS ---
Test Reason : Blood Pressure : / mmHG Vent. Rate : 060 BPM Atrial Rate : 060 BPM P-R Int : 160 ms QRS Dur : 086 ms QT Int : 420 ms P-R-T Axes : 067 -15 032 degrees QTc Int : 420 ms Normal sinus rhythm Normal ECG Confirmed by GENIE BARLOW, NATALIE ([id number]), research editor GIANLUCA TAYLOR ([id number]) on 11/23/2019 10:50:20 AM Referred By: HIPOLITO Confirmed By:NATALIE PRESCOTT MD
[2019-11-20 07:06] VITALS: BP 171/99; PULSE 68; RESP 18; O2SAT 100
--- NOTE | 2019-11-20 07:11 | ED.VIS.GEN ---
History of Present Illness Chief Complaint: Shortness of Breath Informant: Patient Onset: Yesterday Context: Gradual Onset Timing: Continuous Current Severity: Moderate Maximum Severity: Moderate Narrative: Patient is an 84-year-old female with medical history significant for COPD that presents to the emergency department with cough and shortness of breath. Patient states her symptoms worsened last night. She states that she tried her nebulizers with some improvement. She denies any fevers or chills. She denies any recent travel. She denies orthopnea or chest pain. Patient is not on supplemental oxygen. She states she has been compliant with all of her medications. Prior similar symptoms: Yes Recent Illness/Hospitalization: No Past Medical History - Allergies and Home Meds Allergies/Adverse Reactions: Allergies lisinopril Adverse Reaction (Verified 11/20/19 07:01) Swelling Primary Care Physician: Jethro Goel [Primary Care Provider] - Prior records reviewed: Yes Past Medical History: - - COPD Surgical History: - - Surgery for stress incontinence including a sling procedure, status post recent nasal surgery Smoking Status: Former smoker - Family History Paternal Family History: Reports: - - prostate CA Maternal Family History: Reports: - - breast CA Review of Systems General: Denies: Chills, Fever, Sweats Eyes: Denies: Visual changes - bilaterally, Diplopia ENT: Denies: Rhinorrhea, Sore throat Cardiovascular: Denies: Chest pain, Palpitations Respiratory: Reports: Dyspnea, Cough. Denies: Dyspnea on exertion Gastrointestinal: Denies: Abdominal pain, Nausea, Vomiting, Diarrhea, Melena, Hematochezia Genitourinary: Denies: Dysuria, Hematuria, Frequency Musculoskeletal: Denies: Back pain, Extremity Pain Skin: Denies: Rash, Wounds Neurological: Denies: Headache, Weakness, Numbness Physical Exam Vital Signs/Narrative: Vital Signs Temp Pulse Resp BP Pulse Ox 11/20/19 07:06 68 18 171/99 H 100 11/20/19 06:57 98.7 F 72 18 193/93 H 98 Inital Vital Signs reviewed: Yes General: Well nourished, Well developed, No Acute Distress Head: Normocephalic, Atraumatic Eyes: Perrl, EOMI ENT: Moist mucous membranes, No rhinorrhea Neck: Supple, Nontender Cardiovascular: Regular rate, Regular rhythm, No murmurs Respiratory: No distress, Chest nontender, Wheezing Abdomen: Soft, Nontender, Nondistended, Normal bowel sounds Back: Nontender, Normal Inspection Extremities: Nontender, No edema Skin: Normal color, No rash Neurological: Alert, Oriented x3, Cranial nerves II-XII grossly intact, Normal Strength, Normal Sensation Psychological: Normal affect, Normal Mood Diagnostic/Tx/Re-eval Clinical Impression(s) from Imaging Studies Chest X-Ray 11/20/19 07:35 IMPRESSION: No acute cardiopulmonary disease Electronically Signed: Dieudonne Cho DO at 7:57 EDT Tel , Service support , - Rhythm Strip Rhythm Strip: Sinus Rhythm Rate: 80 Ectopy: None - EKG Initial EKG Interpretation: Sinus Rhythm, No Acute Injury Pattern Prior: Unchanged - Medical Decision Making The patient presents with cough and shortness of breath. She does have a history of COPD. She denies any recent infectious symptoms, change in sputum, or fever. She has had no travel. She denies any recent sick contacts. Patient symptoms do seem more consistent with COPD, especially given her history and multiple visits. Patient was given nebulized breathing treatments and prednisone. On reevaluation, she is feeling improved. X-ray shows no focal infiltrative process. At this point, I do for that she is safe for outpatient therapy. I do not see clear indication for antibiotics. She will be continued on prednisone will be discharged home. Impression 1. COPD exacerbation ED Disposition - Plan for ED Patient: Instructions: Copd Flare Prescriptions: Prednisone [Deltasone] 60 mg PO DAILY #15 tab Prescription Printed Referrals: Jethro Goel [Primary Care Provider] -
[2019-11-20 07:22] VITALS: PULSE 95; RESP 16
[2019-11-20] MEDS: Albuterol 2.5 MG/3 ML VIAL.NEB. INHALATION (07:22)
[2019-11-20] MEDS: Ipratropium/Albuterol Sulfate 3 ML AMPUL.NEB INHALATION (07:22)
[2019-11-20] MEDS: predniSONE 20 MG Tablet 60 MG PO (07:22)
--- NOTE | 2019-11-20 07:35 | RAD_ITS ---
STUDY: X-RAY CHEST REASON FOR EXAM: Female, 84 years old. COUGH, SOB TECHNIQUE: PA and lateral views of the chest. COMPARISON: 10/21/2019 FINDINGS: There is hyperinflation of the lungs consistent with chronic obstructive lung disease (COPD). Lungs are clear. There is no demonstrated pleural abnormality. There is mild cardiac enlargement. Normal mediastinum and rasheed. Normal visualized pulmonary arteries. Normal visualized aortic arch and descending thoracic aorta. Normal visualized thoracic spine. Normal visualized ribs, clavicles, and shoulders. There is no demonstrated abnormality of the visualized soft tissue structures of the upper abdomen. RAD/Chest PA and Lateral IMPRESSION: No acute cardiopulmonary disease Electronically Signed: Dieudonne Cho DO at 7:57 EDT Tel , Service support ,
[2019-11-20 08:30] VITALS: BP 176/93; PULSE 84; RESP 18; O2SAT 94
== END 2019-11-20 08:33 | disposition home or self-care (01) ==
LOC: ED 07:32
PROVIDERS: Emergency Provider Emergency Medicine; PCP Student in an Organized Health Care Education/Training Program
DX: J44.1 Chronic obstructive pulmonary disease with (acute) exacerbation (principal); Z87.891 Personal history of nicotine dependence
CPT/HCPCS: 71046; 93005; 94640; 99285

== ENCOUNTER 2020-01-24 01:00 | Emergency (ER) | payer MEDICARE, SELFPAY ==
[2020-01-24 01:02] VITALS: BP 124/92; PULSE 67; RESP 14; TEMP 36.9; O2SAT 97; BMI 32.5
[2020-01-24 01:07] VITALS: BP 124/92; PULSE 67; RESP 14; TEMP 36.9; O2SAT 97
[2020-01-24 01:08] VITALS: O2SAT 97
--- NOTE | 2020-01-24 01:18 | EKG12_ITS ---
Test Reason : SOB Blood Pressure : / mmHG Vent. Rate : 065 BPM Atrial Rate : 065 BPM P-R Int : 166 ms QRS Dur : 084 ms QT Int : 436 ms P-R-T Axes : 051 -11 036 degrees QTc Int : 453 ms Normal sinus rhythm with sinus arrhythmia Normal ECG Confirmed by GENIE BARLOW, NATALIE ([id number]), associate editor RAJESH MARTIN ([id number] on 01/26/2020 3:17:23 PM Referred By: FERNANDA Confirmed By:NATALIE PRESCOTT MD
--- NOTE | 2020-01-24 01:21 | ED.VISSUMM ---
- ER Visit Summary Date of Service: 01/24/20 Chief Complaint: Shortness of breath History of Present Illness: The patient is a 84 F history of COPD not requiring oxygen at home. History also of hypertension, high cholesterol, anemia and renal insufficiency. Patient states since noon today she has been short of breath. She has had similar episodes like this before. He has had multiple negative work-ups. Often she receives aerosol treatments in the emergency department prednisone is discharged. She denies any chest pain. She denies any fever chills or cough. She denies any recent admission. No history of calf pain or swelling. No hemoptysis. No history of DVT or PE or significant risk factors. Physical Examination: Older female no acute distress vital signs stable afebrile. Brought in by squad. Pulse ox 97% on room air. H EENT exam unremarkable. Neck nontender no JVD. No lymphadenopathy. Lungs clear to auscultation bilaterally. Equal symmetrical. No rales, rhonchi or wheezing. No distress. Heart regular rate and rhythm rate about 70 no murmur. Abdomen soft nontender. Normal bowel sounds no peritoneal signs. No distention. Patient is moving all 4 extremities. Neurovascular intact. Calves nontender without edema or cords. Normal revenue tax specialist strength. Normal dorsi plantarflexion. Neurologically she is awake and alert with no focal motor deficits. Test Results: EKG shows normal sinus rhythm rate of 65 no acute signs of AR or ischemia. Portable chest x-ray 1 view read by myself shows no acute abnormality. Normal cardiac silhouette. No infiltrate. Emergency Department Course and Treatment: Patient clinically looks well. I reviewed her prior visits. I do not think she needs laboratories at this time. Should be treated with a DuoNeb and albuterol aerosol. 60 mg p.o. prednisone. Repeat exam at 1:57 AM patient is doing well. Will be discharged to home. Treatment Plan: Prednisone 40 mg/day. Follow-up with her PCP. Use both her nebulizer and inhaler as needed. Return if worse. Disposition: dc Impression: Acute exacerbation of COPD History of hypertension and hypercholesterolemia. History of chronic renal insufficiency This note was generated with Topioation software. It may contain incorrect words, spelling, and punctuation that were not noted in review of the chart prior to signing ED Disposition - Plan for ED Patient: Disposition: Home or Assisted Living Instructions: ED COPD Flare Prescriptions: Prednisone [Deltasone] 40 mg PO DAILY 7 Days #7 tab Prescription Printed Referrals: Jethro Goel [Primary Care Provider] - 3-5 Days Additional Instructions: Use your prednisone daily. Start this medication on Saturday because you already given a dose today. Use your inhalers as needed. Use your nebulizer as needed you may use that several times a day if needed. Follow-up with your doctor to ensure you are improving. Return emergency department if you are feeling worse.
[2020-01-24] MEDS: predniSONE 20 MG Tablet 60 MG PO (01:25)
--- NOTE | 2020-01-24 01:25 | ED.DEP ---
ED Disposition - Plan for ED Patient: Disposition: Home or Assisted Living Instructions: ED COPD Flare Prescriptions: Prednisone [Deltasone] 40 mg PO DAILY 7 Days #7 tab Prescription Printed Referrals: Jethro Goel [Primary Care Provider] - 3-5 Days Additional Instructions: Use your prednisone daily. Start this medication on Saturday because you already given a dose today. Use your inhalers as needed. Use your nebulizer as needed you may use that several times a day if needed. Follow-up with your doctor to ensure you are improving. Return emergency department if you are feeling worse.
[2020-01-24] MEDS: Albuterol 2.5 MG/3 ML VIAL.NEB. INHALATION (01:38)
[2020-01-24 01:39] VITALS: PULSE 65; RESP 16
--- NOTE | 2020-01-24 01:40 | RAD_ITS ---
STUDY: X-RAY CHEST REASON FOR EXAM: Female, 84 years old. COPD, SOB TECHNIQUE: Single AP portable view of the chest. COMPARISON: November 20, 2019. 10/21/2019. FINDINGS: There are superimposed monitor leads. There is hyperinflation of the lungs consistent with chronic obstructive lung disease (COPD). Stable calcified granuloma in the left base. There is no demonstrated pleural abnormality. Retrocardiac density is stable and most consistent with a hiatal hernia. Normal size heart. Normal mediastinum and rasheed. Normal visualized pulmonary arteries. There is atherosclerotic calcification of the aortic arch with tortuosity. There is demineralization of the osseous structures. Normal visualized ribs, clavicles, and shoulders. There is no demonstrated abnormality of the visualized soft tissue structures of the upper abdomen. RAD/Chest 1 View (Portable) IMPRESSION: Stable COPD, atherosclerosis, osteoporosis, degenerative changes, remote granulomatous exposure and presumed hiatal hernia. No pulmonary edema, congestive heart failure or confluent pneumonia. Electronically Signed: Shobha Pepe MD at 2:18 EDT , Service support ,
[2020-01-24 02:11] VITALS: BP 194/95; PULSE 84; RESP 20; O2SAT 97
== END 2020-01-24 02:19 | disposition home or self-care (01) ==
LOC: ED 02:19
PROVIDERS: Emergency Provider Emergency Medicine; PCP Student in an Organized Health Care Education/Training Program
DX: J44.1 Chronic obstructive pulmonary disease with (acute) exacerbation (principal); E78.00 Pure hypercholesterolemia, unspecified
CPT/HCPCS: 71045; 93005; 94640; 99284

== ENCOUNTER 2020-02-05 18:01 | Emergency (ER) | payer MEDICARE, SELFPAY ==
[2020-02-05 18:02] VITALS: BP 161/93; PULSE 84; PULSE 91; RESP 16; TEMP 35.8; O2SAT 95; BMI 26.9
--- NOTE | 2020-02-05 18:47 | ED.DCSUM_ITS ---
- ER Visit Summary Date of Service: 02/05/20 Chief Complaint: Rash History of Present Illness: The patient is a 84 F who presents with a rash that has been constant for the past 3 months. Patient states she has itching all over. Patient states she has been to the emergency department several times for this. Patient recently finished a course of prednisone today. Patient has an appointment with her primary care physician in 3 days. Patient denies any new exposures such as new soaps, new shampoos, new foods, new laundry detergents, new fabric softeners, or new perfumes. Patient denies any difficulty swallowing or throat swelling. Physical Examination: Vital signs are stable. Patient is afebrile. Patient is in no acute distress. Oral mucosa is pink and moist. Oropharynx is clear. Neck is supple. Trachea is midline. There is no JVD. Heart was regular rate and rhythm. Lungs are clear and equal bilaterally. Abdomen is soft. Bowel sounds are normal. There is no tenderness. Extremities are intact. There is no calf tenderness. There is trace edema of the ankles bilaterally. Skin is warm and dry. There is calamine lotion noted over the skin. There are no vesicles or pustules. There are no petechia noted. Test Results: CBC showed anemia with a hemoglobin of 8.3 and hematocrit of 27.0. Patient does have a history of anemia. Comprehensive metabolic profile was essentially within normal limits. Liver function tests were all normal. Emergency Department Course and Treatment: Patient was given a dose of Atarax here. Patient will be given a prescription for Atarax to take as needed for itching. Patient was instructed to follow-up with her primary care physician as scheduled. Patient understood and was agreeable with the plan. All questions were answered. Disposition: Discharge home Impression: 1. Dermatitis This note was generated with threadsy dictation software. It may contain incorrect words, spelling, and punctuation that were not noted in review of the chart prior to signing ED Disposition - Plan for ED Patient: Disposition: Home or Assisted Living Diagnosis: Dermatitis Instructions: ED DERMATITIS Atopic Eczema Prescriptions: hydrOXYzine tablet [Atarax tablet] 10 mg PO 4X/DAY PRN PRN #20 tab PRN Reason: Itching Prescription Printed Referrals: Jethro Goel [Primary Care Provider] - Keep Roxi appointment
[2020-02-05 19:05] LABS: Absolute Lymphocyte Count 0.75 X10^3/uL (0.83-4.51); Absolute Neutrophil Count 8.1 X10^3/uL (2.0-7.7); Basophil# 0.06 X10^3/uL; Basophil% 0.6 % (0-1); Eosinophil# 0.15 X10^3/uL; Eosinophils% 1.5 % (0-5); Hemoglobin 8.3 g/dL (12.0-15.0); Lymphocyte # 0.75 X10^3/ul (4.0); Lymphocyte % 7.6 % (19-41); Mean Corp Hgb Conc 30.7 g/dL (32-36); Mean Corpuscular Hgb 27.6 pg (27.0-32.0); Mean Corpuscular Volume 89.7 fL (81-99); Mean Platelet Vol. 9.6 fl (6.2-12.0); Monocyte# 0.73 X10^3/uL; Monocyte% 7.4 % (0-10); NRBC Flagged by Analyzer 0 % (0-5); Neutrophil # 8.08 X10^3/uL (2.7-7.7); Neutrophil % 82.5 % (47-70); Platelet Count 275 K/mm3 (150-450); RBC Distribution Width CV 14.5 % (11.6-14.6); RBC Distribution Width SD 46.5 fl (35.1-43.9); Red Blood Count 3.01 M/mm3 (4.2-5.4); White Blood Count 9.8 K/mm3 (4.4-11.0)
[2020-02-05] MEDS: hydrOXYzine 10 MG Tablet PO (19:06)
[2020-02-05 19:54] LABS: ALB/GLOB Ratio 0.9 RATIO (0.9-2.4); AST(SGOT) 25 U/L (15-37); Alanine Aminotransfer ALT/SGPT 23 U/L (13-56); Albumin, Serum 3.5 g/dL (3.2-5.0); Alkaline Phosphatase 69 U/L (45-117); Anion Gap 7 (5-15); BUN 15 mg/dL (7-18); BUN/Creat Ratio 11.1 RATIO (10-20); Calcium,Total 8.9 mg/dL (8.5-10.1); Chloride 110 mmol/L (98-107); Creatinine, Serum 1.35 mg/dL (0.55-1.02); EST Glomerular Filtration Rate 40 mL/min (>60); Est Glom Filt Rate - Afr Amer 48 mL/min (>60); Estimated Creatinine Clearance 29.04 ml/min; Globulin 3.9 g/dL (2.2-4.2); Glucose 107 mg/dL (74-106); Potassium 3.8 mmol/L (3.5-5.1); Protein, Total 7.4 g/dL (6.4-8.2); Sodium Level 143 mmol/L (136-145)
[2020-02-05 21:36] VITALS: BP 173/85; PULSE 74; RESP 17; O2SAT 97
== END 2020-02-05 21:37 | disposition home or self-care (01) ==
PROVIDERS: Emergency Provider Emergency Medicine; PCP Student in an Organized Health Care Education/Training Program
DX: L30.9 Dermatitis, unspecified (principal); J44.9 Chronic obstructive pulmonary disease, unspecified; K21.9 Gastro-esophageal reflux disease without esophagitis; Z87.891 Personal history of nicotine dependence
CPT/HCPCS: 80053; 85025; 99284

== ENCOUNTER → 2020-02-23 17:11 | Outpatient (CLI) | payer MEDICARE, SELFPAY ==
[2020-02-23 16:49] VITALS: BMI 26.8
--- NOTE | 2020-02-23 17:14 | RAD_ITS ---
STUDY: X-RAY - LEFT FOOT CLINICAL: Female, 84 years old. dropped a can on foot a few days ago, swelling but she states the swelling was there before she dropped the can TECHNIQUE: 3 view(s) of the foot. COMPARISON: None. FINDINGS: Normal talus, calcaneus, and tarsal bones. Normal visualized subtalar, talonavicular, calcaneocuboid, tarsal and tarsometatarsal articulations. Normal metatarsi. The bony structures are mildly demineralized. There is also mild narrowing in the IP joints throughout the foot. No visualized acute fracture or displacement. Moderate soft tissue swelling is present. Enthesopathy is seen at the Achilles insertion site. RAD/Foot min 3 Views IMPRESSION: Moderate soft tissue swelling. Scattered degenerative changes Electronically Signed: Jak Tucker MD at 19:10 EDT , Service support ,
== END ==
LOC: MTRAD 17:14
PROVIDERS: PCP Student in an Organized Health Care Education/Training Program; Referring Provider Physician Assistant Surgical; Visit Provider Physician Assistant Surgical
DX: S90.32XA Contusion of left foot, initial encounter (principal)
CPT/HCPCS: 73630

== ENCOUNTER 2020-03-12 09:08 | Inpatient (IN) | payer MEDICARE, MEDICAID, SELFPAY ==
[2020-02-23 17:35] VITALS: BMI 26.9
[2020-03-12] VITALS (17 sets, daily range): BP systolic 113–177; BP diastolic 54–84; PULSE 54–67; RESP 16–24; TEMP 35.7–37.2; O2SAT 96–100; BMI 26.6; BMI 27.4; BMI 27.5
--- NOTE | 2020-03-12 09:18 | EKG12_ITS ---
Test Reason : EDEMA Blood Pressure : / mmHG Vent. Rate : 067 BPM Atrial Rate : 067 BPM P-R Int : 142 ms QRS Dur : 078 ms QT Int : 428 ms P-R-T Axes : 053 -09 027 degrees QTc Int : 452 ms Normal sinus rhythm with sinus arrhythmia Possible Left atrial enlargement Borderline ECG Confirmed by GENIE BARLOW, NATALIE ([id number]), editor publications FLORENTIN MORLEY ([id number]) on 03/14/2020 1:04:53 PM Referred By: ERIKA Confirmed By:NATALIE PRESCOTT MD
--- NOTE | 2020-03-12 09:18 | RAD_ITS ---
STUDY: X-RAY CHEST REASON FOR EXAM: Female, 84 years old. Shortness breath. TECHNIQUE: Single AP portable view of the chest. COMPARISON: January 24, 2020. FINDINGS: The lungs are clear and expanded. There is no demonstrated pleural abnormality. Normal size heart. Normal mediastinum and rasheed. Normal visualized pulmonary arteries. There is atherosclerotic calcification of the aortic arch with tortuosity. Normal visualized thoracic spine. Normal visualized ribs, clavicles, and shoulders. There is a large retrocardiac hiatal hernia again noted. RAD/Chest 1 View (Portable) IMPRESSION: 1. Stable retrocardiac hiatal hernia. 2. No evidence of acute cardiopulmonary disease or major interval change. Electronically Signed: Douglas Barnett DO at 9:54 EDT Tel [phone], Service support ,
--- NOTE | 2020-03-12 09:19 | CT_ITS ---
STUDY: CT BRAIN WITHOUT CONTRAST REASON FOR EXAM: Female, 84 years old. Mental status change. RADIATION DOSAGE (If Supplied By Facility): CTDIvol = ( 44.99 ) mGy, DLP = ( 745.49 ) mGycm TECHNIQUE: Transaxial CT imaging of the brain was performed without administration of intravenous contrast material. Individualized dose optimization techniques were used for this CT. COMPARISON: April 06, 2015. FINDINGS: Normal soft tissue structures. Normal calvarium. Normal size ventricles and extra-axial spaces for the patient''s age. Normal white matter tracts of the cerebral hemispheres. Normal basal ganglia and thalami. Normal brainstem. Normal cerebellum. There is no intracranial hemorrhage. There are no findings of an acute ischemic infarction. Normal visualized paranasal sinuses. CT/Brain/Head without Contrast IMPRESSION: Normal unenhanced CT scan of the brain. No major interval change. Electronically Signed: Douglas Barnett DO at 10:10 EDT Tel [phone], Service support ,
[2020-03-12 09:40] LABS: Mucous, Urine 0 SEEN /hpf (<or=2+); Red Blood Cells-Urine 0 SEEN /hpf (0-5); Squamous Epithelial Cells - UA 0 SEEN /hpf (5-10)
[2020-03-12 09:43] LABS: Color, Urine Yellow (Yellow); Glucose, Dipstick Normal (Normal); Ketone-Dipstick Negative (Negative); Leukocyte Esterase-Dipstick 100 /ul (Negative); Nitrite-Dipstick Negative (Negative); Occult Blood-Urine 50 /ul (Negative); Protein-Dipstick Negative (Negative); Urine Bilirubin Dipstick Negative (Negative); Urine Clarity Clear (Clear); Urine Urobilinogen Normal (Normal); Urine pH 6.5 (5.0 - 8.0)
[2020-03-12 09:48] LABS: Absolute Lymphocyte Count 1.01 X10^3/uL (0.83-4.51); Absolute Neutrophil Count 4.8 X10^3/uL (2.0-7.7); Basophil# 0.05 X10^3/uL; Basophil% 0.8 % (0-1); Eosinophil# 0.15 X10^3/uL; Eosinophils% 2.3 % (0-5); Hematocrit 20.8 % (37-47); Lymphocyte # 1.01 X10^3/ul (4.0); Lymphocyte % 15.5 % (19-41); Mean Corp Hgb Conc 28.8 g/dL (32-36); Mean Corpuscular Hgb 24.6 pg (27.0-32.0); Mean Corpuscular Volume 85.2 fL (81-99); Mean Platelet Vol. 10.9 fl (6.2-12.0); Monocyte# 0.44 X10^3/uL; Monocyte% 6.8 % (0-10); NRBC Flagged by Analyzer 0 % (0-5); Neutrophil # 4.83 X10^3/uL (2.7-7.7); Neutrophil % 74.3 % (47-70); Platelet Count 286 K/mm3 (150-450); RBC Distribution Width CV 16.4 % (11.6-14.6); RBC Distribution Width SD 50.4 fl (35.1-43.9); Red Blood Count 2.44 M/mm3 (4.2-5.4); White Blood Count 6.5 K/mm3 (4.4-11.0)
[2020-03-12 09:51] LABS: Bacteria RARE /hpf (None Seen); White Blood Cells 0-5 SEEN /hpf (0-5)
[2020-03-12 10:17] LABS: Anion Gap 8 (5-15); BUN 16 mg/dL (7-18); BUN/Creat Ratio 10.4 RATIO (10-20); Calcium,Total 8.6 mg/dL (8.5-10.1); Chloride 108 mmol/L (98-107); Creatinine, Serum 1.54 mg/dL (0.55-1.02); EST Glomerular Filtration Rate 34 mL/min (>60); Est Glom Filt Rate - Afr Amer 41 mL/min (>60); Estimated Creatinine Clearance 26.44 ml/min; Glucose 142 mg/dL (74-106); Potassium 4.2 mmol/L (3.5-5.1); Sodium Level 141 mmol/L (136-145)
--- NOTE | 2020-03-12 10:29 | ED.VISSUMM ---
- ER Visit Summary Date of Service: 03/12/20 Chief Complaint: Shortness of breath History of Present Illness: The patient is a [address] Goel. Patient has chronic shortness of breath that has worsened over the past week. She also reports poor energy over the past week. States that her shortness of breath is severe when she walks around or lays flat. Is mild at rest. She gets transient relief with her albuterol. She reports that she has a chronic cough that is unchanged. It is occasional be productive. She denies fever, chills, or chest pain. Patient reports that she is had similar symptoms previously when she is anemic. She had a hemoglobin last week that was 7. She reports that she has had blood transfusions several times and they have not ever found a cause for the bleeding. She reports that she has had colonoscopies and EGDs. States that she has not had bloody nose or trauma to explain this. Daughter reports the patient has been repeating herself for the past week. She has not done this previously. Physical Examination: Vitals: Stable. Afebrile. General: Well-nourished and well-developed. Head: Normocephalic atraumatic. Neck: Supple, no lymphadenopathy. No JVD. Nontender. Cardiovascular: Regular rate and rhythm. 2 out of 6 systolic murmur. Respiratory: No respiratory distress. Clear to auscultation bilaterally. Abdominal: Soft, nontender, nondistended, normal bowel sounds. No guarding, rebound, or peritoneal signs. Back: Nontender. Extremities: Nontender, 1+ edema of her lower extremities bilaterally. Skin: Normal color, no rash. Neurologic: Alert and oriented ?3. Cranial nerves II through XII are intact. Normal strength and sensation. Psych: Normal affect. Test Results: CBC shows a hemoglobin of 6.0. This was 8.3 February 04. Is been seven-point 4?12 since 2019. 7 neutrophils 74 lymphocytes 16. Chem-7 shows a chloride 108, creatinine 1.54, glucose 142. UA is negative. Troponin is negative. EKG is sinus at [address] changes. Clinical Impression(s) from Imaging Studies Chest X-Ray 03/12/20 09:18 IMPRESSION: 1. Stable retrocardiac hiatal hernia. 2. No evidence of acute cardiopulmonary disease or major interval change. Electronically Signed: Douglas Barnett DO at 9:54 EDT Tel [phone], Service support , Brain CT 03/12/20 09:19 IMPRESSION: Normal unenhanced CT scan of the brain. No major interval change. Electronically Signed: Douglas Barnett DO at 10:10 EDT Tel [phone], Service support , Emergency Department Course and Treatment: Patient was typed and crossed for 2 units of packed red blood cells. She is resting comfortably. Treatment Plan: Patient will be discussed with the hospitalist and admitted for further evaluation and treatment. Disposition: Admitted in stable condition. Impression: 1. Symptomatic anemia. 2. COPD. This note was generated with Everyday[employer] dictation software. It may contain incorrect words, spelling, and punctuation that were not noted in review of the chart prior to signing ED Disposition - Plan for ED Patient: Referrals: Jethro Goel [Primary Care Provider] -
[2020-03-12 10:48] LABS: Probe Check PASS; Specimen Processing Control PASS
--- NOTE | 2020-03-12 11:00 | CM.ED ---
SOCIAL WORK Informant: Nursing Reason for Consult: Resources Met with patient and daughter, Zulema in room. Introduced role and reason for referral. Daughter and patient inquiring about patient's Medicaid. Patient states has stack of hospital bills and is wondering if Medicaid will cover bills. Registration was in and informed unable to see at this time when patient's Medicaid became active. Advised patient and daughter to follow up with [facility] and billing on Saturday. No further questions at this time. Plan: Admit Concepcion Kaplan, ASSEMBLER ADJUSTER, TELECOMMUNICATIONS ADMINISTRATOR
[2020-03-12 11:38] LABS: BNP,B-Type NATRIURETIC PEPTIDE 309.2 pg/mL (0-100)
[2020-03-12 12:02] LABS: Platelet Count 272 K/mm3 (150-450); RET-HE 20.1 pg (30-35); Reticulocyte Count 1.42 % (0.5-1.5)
[2020-03-12 12:18] LABS: AST(SGOT) 32 U/L (15-37); Alanine Aminotransfer ALT/SGPT 22 U/L (13-56); Albumin, Serum 3.3 g/dL (3.2-5.0); Alkaline Phosphatase 85 U/L (45-117); Ferritin 7 ng/mL (8-252); Iron 17 ug/dL (50-170); Iron Binding Capacity,Total 418 ug/dL (250-450); LDH 246 U/L (84-246); PERCENT IRON SATURATION 4.1 % (15.0-55.0); Protein, Total 7.3 g/dL (6.4-8.2)
--- NOTE | 2020-03-12 13:22 | HP.PCM_ITS ---
History of Present Illness Date of Admission: 03/12/20 Chief Complaint: Shortness of breath The patient is a 84 year old F with a PMH as below who presents with shortness of breath over the last week. She says that she generally has chronic shortness of breath however over the last week it is worsened significantly. She did recently have a hemoglobin that was 7, and today when she presented to the ER her hemoglobin was 6. She has had anemia in the past and not this severe. She has had multiple EGDs and colonoscopies with her most recent colonoscopy and EGD being in April 2019. The findings at that time were benign, she also had iron studies done in 2014 which showed iron deficiency anemia however it does not appear that she is on any iron replacement therapies. She is also noticed some leg swelling over the last several months and has had difficulty laying down to breathe for several years. Past Medical History Past Medical History (Chronic Problems): Chronic Problems (Last Reviewed 02/23/20 @ 16:50 by Yanely Reyes) COPD exacerbation (Chronic) Chronic anemia (Chronic) Disorder of bone and cartilage (Chronic) Dysmetabolic syndrome (Chronic) Lichen sclerosus (Chronic) Hypercholesteremia (Chronic) Multiple pulmonary nodules (Chronic) Osteopenia (Chronic) Seborrheic keratoses (Chronic) Obesity (Chronic) Fatigue (Chronic) Diverticula of colon (Chronic) CVA (cerebral vascular accident) (Chronic) Anemia (Chronic) Hypertrophy of nasal turbinates (Chronic) Chronic renal failure, stage 3 (moderate) (Chronic) Urinary, incontinence, stress female (Chronic) Bronchiectasis (Chronic) Anxiety (Chronic) HTN (hypertension) (Chronic) GERD (gastroesophageal reflux disease) (Chronic) Tobacco abuse (Chronic) HLD (hyperlipidemia) (Chronic) Medical History: Medical History (Last Reviewed 02/23/20 @ 16:50 by Yanely Reyes) Disorder of bone and cartilage (Chronic) M89.9, M94.9 Dysmetabolic syndrome (Chronic) E88.81 Lichen sclerosus (Chronic) L90.0 Hypercholesteremia (Chronic) E78.00 Multiple pulmonary nodules (Chronic) R91.8 Osteopenia (Chronic) M85.80 Seborrheic keratoses (Chronic) L82.1 Vitamin B12 deficiency (Acute) E53.8 Vitamin D deficiency (Acute) E55.9 Obesity (Chronic) E66.9 Fatigue (Chronic) R53.83 Diverticula of colon (Chronic) K57.30 CVA (cerebral vascular accident) (Chronic) I63.9 Anemia (Chronic) D64.9 Hypertrophy of nasal turbinates (Chronic) J34.3 Chronic renal failure, stage 3 (moderate) (Chronic) N18.3 Urinary, incontinence, stress female (Chronic) N39.3 Bronchiectasis (Chronic) J47.9 Anxiety (Chronic) F41.9 HTN (hypertension) (Chronic) I10 GERD (gastroesophageal reflux disease) (Chronic) K21.9 Tobacco abuse (Chronic) Z72.0 Pneumonia (Acute) J18.9 HLD (hyperlipidemia) (Chronic) E78.5 Allergies lisinopril Adverse Reaction (Verified 03/12/20 12:26) Swelling Home Medications: Ambulatory Orders Medication Instructions Recorded Albuterol Inhaler [Ventolin Hfa] 1 - 2 puff INHALATION Q4H PRN PRN 11/28/17 #1 inhaler Fluticasone/Vilanterol [Breo 1 ea IH DAILY 02/11/18 Ellipta 100-25 Mcg INH] Pantoprazole Sodium 40 mg PO DAILY 07/17/19 Albuterol Aerosols [Ventolin 2.5 mg INHALATION Q4H PRN PRN 03/12/20 Aerosols] Cyanocobalamin (Vitamin B-12) 1,000 mcg PO DAILY 03/12/20 [Vitamin B-12] Metoprolol Tartrate 12.5 mg PO BID 03/12/20 Montelukast [Singulair] 10 mg PO DAILY 03/12/20 hydrOXYzine pamoate capsule 50 mg PO TID PRN PRN 03/12/20 [Vistaril pamoate capsule] Surgical History: - - Surgery for stress incontinence including a sling procedure, status post recent nasal surgery Psychiatric History: Anxiety OCCUPATIONAL THERAPY DEPARTMENT CHAIR History: No pertinent OCCUPATIONAL THERAPY DEPARTMENT CHAIR history Smoking Status: Former smoker Tobacco Use: Cigarettes Alcohol: None Drugs: None - *Family History Paternal History Items: Diabetes, - - prostate CA Maternal History Items: - - breast CA Review of Systems Constitutional: Reports: Fatigue. Denies: Chills, Fever, Weight Change HEENT: Denies: Head Aches, Sinus Congestion, Sinus Drainage Cardiovascular: Reports: Orthopnea. Denies: Chest Pain, Palpitations Respiratory: Reports: Shortness of Breath, Shortness of breath upon exertion. Denies: Cough, Shortness of breath at rest, Sputum production Gastrointestinal: Denies: Abdominal Pain, Nausea, Vomiting Genitourinary: Denies: Dysuria Musculoskeletal: Denies: Joint Pain, Joint Tenderness Skin: Denies: Rash, Wounds Neurological: Denies: Numbness, Tingling, Focal weakness Psychiatric: Denies: Anxiety, Depression Hematologic/ Lymphatic: Denies: Easy Bruising, Easy Bleeding VTE Information - Inpt Only VTE Present on Admission: No - Physical Exam Vitals/I&O's: Vital Signs Temp Pulse Resp BP Pulse Ox 96.3 F L 61 20 H 149/54 H 100 03/12/20 12:22 03/12/20 12:22 03/12/20 12:22 03/12/20 12:22 03/12/20 12:22 Oxygen Delivery Method Room Air Weight: 165 lb Body Mass Index (BMI) 27.4 Intake and Output for Last 24 Hours 03/10/20 03/11/20 03/12/20 23:59 23:59 23:59 Intake Total 0 / 0 Balance 0 / 0 General: Alert, Oriented x3, Cooperative, No apparent distress, - - Pale HEENT: Atraumatic, PERRLA, EOMI, Normocephalic, - - Pale conjunctiva Oral: Moist Mucosa Neck: Supple, No JVD Lungs: Clear to auscultation, Normal air movement, No rhonchi, No wheeze, No rales, Diminished Cardiovascular: Regular rate, Regular Rhythm, Normal S1, Normal S2, Murmur - 2 out of 6 right upper sternal border Abdomen: Soft, Non Tender, Non-Distended, No Hepato-splenomegaly Extremities: No edema, Capillary Refill Less than 3 Seconds Skin: No rashes, No breakdown Neurological: Neuro grossly intact, Sensory exam intact to light touch and pain Psych/Mental Status: Normal Affect, Appropriate Laboratory Results 03/12/20 09:30: COVID-19 (DAVE) Negative 03/12/20 09:30: WBC 6.5, RBC 2.44 L, Hgb 6.0 L*, Hct 20.8 L, MCV 85.2, MCH 24.6 L, MCHC 28.8 L, RDW Std Deviation 50.4 H, RDW Coeff of Jung 16.4 H, Plt Count 286, MPV 10.9, Immature Gran % (Auto) 0.300, Neut % (Auto) 74.3 H, Lymph % (Auto) 15.5 L, [place] % (Auto) 6.8, Eos % (Auto) 2.3, Baso % (Auto) 0.8, Absolute Neuts (auto) 4.8, Absolute Lymphs (auto) 1.01, Nucleated RBC % 0, Diff Path Review December03/12/20 09:30: Sodium 141, Potassium 4.2, Chloride 108 H, Carbon Dioxide 25.0, Anion Gap 8, BUN 16, Creatinine 1.54 H, Estim Creat Clear Calc 26.44, Est GFR (MDRD) Af Amer 41 L, Est GFR (MDRD) Non-Af 34 L, BUN/Creatinine Ratio 10.4, Glucose 142 H, Calcium 8.6, Troponin I < 0.015 03/12/20 09:30: B-Natriuretic Peptide 309.2 H 03/12/20 09:30: Blood Type O POSITIVE, Antibody Screen NEGATIVE 03/12/20 09:30: Urine Color Yellow, Urine Clarity Clear, Urine pH 6.5, Ur Specific [place] 1.010, Urine Protein Negative, Urine Glucose (UA) Normal, Urine Ketones Negative, Urine Occult Blood 50 H, Urine Nitrite Negative, Urine Bilirubin Negative, Urine Urobilinogen Normal, Ur Leukocyte Esterase 100 H, Urine RBC 0 SEEN, Urine WBC 0-5 SEEN, Ur Squamous Epith Cells 0 SEEN, Urine Bacteria RARE, Urine Mucus 0 SEEN 03/12/20 09:30: Crossmatch See Detail 03/12/20 09:30: Iron 17 L, TIBC 418, Iron Saturation 4.1 L, Ferritin 7 L, Total Bilirubin 0.20, Direct Bilirubin 0.10, AST 32, ALT 22, Alkaline Phosphatase 85, Lactate Dehydrogenase 246, Total Protein 7.3, Albumin 3.3, Globulin 4.0 03/12/20 11:35: Retic Count 1.42, Immature Retic Fraction 15.80, Retic Hgb Equivalent 20.1 L 03/12/20 11:35: Haptoglobin Pending Current Medications Acetaminophen (Tylenol) 650 mg PO Q6H PRN PRN PRN Reason: Pain Score 1-10/Temp > 100.7 F Sodium Chloride () 500 mls @ 15 mls/hr IV PRN PRN PRN Reason: Blood Transfusion Sodium Chloride () 250 mls @ 15 mls/hr IV .[id number] PRN PRN Reason: Saline Flush Sodium Chloride () 250 mls @ 15 mls/hr IV .[id number] PRN PRN Reason: Additional IVPB Infusion Melatonin (Melatonin) 3 mg PO QHS PRN PRN PRN Reason: INSOMNIA Ondansetron HCl (Zofran) 4 mg IV Q8H PRN PRN PRN Reason: NAUSEA/VOMITING Sodium Chloride () 10 - 40 ml IV UD PRN PRN Reason: SALINE FLUSH Assessment/Plan All Active Problems (Last Reviewed 02/23/20 @ 16:50 by Yanely Reyes) Severe anemia (Acute) Lower extremity edema (Acute) Contusion of left foot, initial encounter (Acute) Vitamin B12 deficiency (Acute) Vitamin D deficiency (Acute) Pneumonia (Acute) 1. Acute on chronic iron deficiency anemia/vitamin B12 deficiency -This is likely the cause of her anemia -Her haptoglobin is pending however her LDH was normal and her bilirubin is normal indicating that there is no hemolysis -Her iron level is 17, and her iron saturation is 4.1 with a ferritin of 7 and TIBC of 418 -She is receiving 2 units of PRBCs and will likely need to have iron transfusions as an outpatient -Also she is having hyperproliferation with reticulocyte count of only 1.42 -Continue with her home B12 -We will start her on iron with vitamin C given her PPI 2. COPD not in exacerbation -Continue with her inhalers -Continue with her Singulair 3. HTN/possible CHF -Blood pressure is stable -With her orthopnea and her elevated BNP to 300, as well as a murmur which she says she did not know she had, will obtain an echo for further evaluation she was also given a dose of Lasix between her units of blood -Continue with her metoprolol 4. GERD -Stable -Continue with Protonix DVT: SCDs Inpatient E&M: [id number] Init Hosp L3
--- NOTE | 2020-03-12 14:42 | ECHOD_ITS ---
Reason For Study: Dyspnea/SOB Procedure This was a 2D Doppler, Color Flow transthoracic echocardiogram. Exam performed portable in patient room. Left Ventricle Normal LV size. Left ventricular systolic function is normal. The estimated ejection fraction is 65 %. Stage 1 diastolic dysfunction. No regional wall motion abnormalities noted. Right Ventricle Normal RV size. Normal systolic function. Atria The left atrium is mildly enlarged. Normal right atrium. Mitral Valve Chordal systolic anterior motion of the mitral valve. Mild (1+) eccentric mitral valve insufficiency. Tricuspid Valve Normal tricuspid valve. Mild to moderate (1-2+) tricuspid valve insufficiency. Pulmonary artery systolic pressure is 44 mmHg. Aortic Valve Trisinus/trileaflet aortic valve. Mild focal aortic valve calcification. Peak aortic valve gradient 43 mmHg. Mean aortic valve gradient 25 mmHg. Mild aortic stenosis. Pulmonic Valve Normal pulmonic valve. Great Vessels Normal aortic root. The pulmonary artery is normal size. Normal inferior vena cava. Pericardium/Pleural No pericardial effusion. MMode/2D Measurements & Calculations LVIDd: 4.1 cm IVSd: 1.7 cm LVOT diam: 2.1 cm LVIDs: 2.3 cm LVPWd: 1.5 cm LVOT area: 3.4 cm2 RVDd: 4.3 cm FS: 42.6 % Ao root diam: 3.0 cm LAV(MOD-bp): 76.4 ml LVAd ap4: 24.1 cm2 LAV(MOD-bp) Indexed: 41.9 ml/m2 EDV(MOD-sp4): 64.1 ml LAV(MOD-sp2): 70.1 ml EDV(sp4-el): 64.2 ml LAV(MOD-sp4): 79.9 ml LVAs ap4: 11.7 cm2 ESV(MOD-sp4): 20.0 ml ESV(sp4-el): 18.4 ml EF(MOD-sp4): 68.7 % EF(sp4-el): 71.4 % SV(MOD-sp4): 44.1 ml SV(sp4-el): 45.9 ml LA A4 area: 23.6 cm2 LA dimension(2D): 5.0 cm RA A4 area: 19.2 cm2 Doppler Measurements & Calculations MV E max francois: 91.7 cm/sec Lat Peak E' Francois: 8.1 cm/sec Med Peak E' Francois: 5.9 cm/sec MV A max francois: 121.3 cm/sec E/E' lat: 11.4 E/E' med: 15.6 MV E/A: 0.76 Ao V2 max: 327.9 cm/sec LV V1 max: 146.7 cm/sec SV(LVOT): 130.4 ml Ao max P.0 mmHg LV V1 max P.6 mmHg Ao V2 mean: 238.8 cm/sec LV V1 mean P.6 mmHg Ao mean P.1 mmHg LV V1 mean: 112.8 cm/sec Ao V2 VTI: 78.0 cm LV V1 VTI: 38.4 cm SKY(I,D): 1.7 cm2 SKY(V,D): 1.5 cm2 PA V2 max: 131.9 cm/sec PI end-d francois: 107.9 cm/sec TR max francois: 320.7 cm/sec TR max P.1 mmHg Interpretation Summary Normal LV size. Left ventricular systolic function is normal. The estimated ejection fraction is 65 %. Stage 1 diastolic dysfunction. Pulmonary artery systolic pressure is 44 mmHg. Mild focal aortic valve calcification. Mean aortic valve gradient 25 mmHg. Mild aortic stenosis. Ordering Physician: Ben Barboza Referring Physician: Jethro Goel Performed By: Loenarda Hunt RDCS, RVT
[2020-03-12] MEDS: Acetaminophen 325 MG Tablet 650 MG PO (14:52)
[2020-03-12] MEDS: 0.9% Saline Lock 10 ML Syringe IV ×2 (15:17→20:42)
[2020-03-12] MEDS: Furosemide 20 MG/2 ML VIAL IV (15:17)
--- NOTE | 2020-03-12 15:46 | CASEMGMT ---
RN JANICE Face to Face with patient for initial transition planning/care coordination assessment. RN CM introduced self and role at [facility]. Patient lying in bed, alert and oriented. Patient willing to participate in assessment and is able to answer all questions appropriately. Care providers, pharmacy, and demographics verified. Patient wishes to discharge home, denies need for home health at this time. Patient states she has no further needs or concerns at this time. CM to follow for discharge planning needs that may arise. PCP: Amando Specialists: None [facility] Prescription Benefit: yes Living Will/HPOA: none LNOK: daughters Living Arrangements: Patient lives alone in an apartment with no steps to enter. Patient independent at home. Transportation: taxi, [place] [facility], daughters DME/HHC: Patient has nebulizer at home. Patient denies previous HHC. Disposition Plan: Patient to discharge home with family support and follow-up plans in place. Suzy RIVERO, RN, CM
[2020-03-12] MEDS: Albuterol 2.5 MG/3 ML VIAL.NEB. INHALATION (17:00)
[2020-03-12] MEDS: Budesonide Respules 0.5 MG/2 ML AMPUL.NEB. INHALATION (17:00)
[2020-03-12] MEDS: Ascorbic Acid 500 MG Tablet PO (17:13)
[2020-03-12] MEDS: Ferrous Sulfate 325 MG Tablet PO (17:13)
--- NOTE | 2020-03-12 19:28 | NURSING ---
This nurse went put on SCD's again since getting up and sitting in chair, pt refused for nurse to have them be put back on despite education RE: importance of wearing them
[2020-03-12] MEDS: Metoprolol Tartrate 25 MG Tablet 12.5 MG PO (22:30)
[2020-03-13] VITALS (17 sets, daily range): BP systolic 138–177; BP diastolic 64–78; PULSE 54–86; RESP 16–24; TEMP 36.4–36.7; O2SAT 94–97
[2020-03-13] MEDS: Acetaminophen 325 MG Tablet 650 MG PO ×3 (00:29→15:18)
[2020-03-13] MEDS: BENZOCAINE/MENTHOL 1 LOZENGE MUCOUS MEM (05:40)
[2020-03-13] MEDS: hydrALAZINE 20 MG/ML Vial 5 MG IV ×2 (06:10→15:19)
[2020-03-13] MEDS: 0.9% Saline Lock 10 ML Syringe IV ×2 (06:10→15:26)
[2020-03-13 06:21] LABS: Absolute Lymphocyte Count 0.71 X10^3/uL (0.83-4.51); Absolute Neutrophil Count 4.4 X10^3/uL (2.0-7.7); Basophil# 0.04 X10^3/uL; Basophil% 0.7 % (0-1); Eosinophils% 3.5 % (0-5); Hematocrit 28.7 % (37-47); Hemoglobin 8.7 g/dL (12.0-15.0); Lymphocyte # 0.71 X10^3/ul (4.0); Lymphocyte % 12.3 % (19-41); Mean Corp Hgb Conc 30.3 g/dL (32-36); Mean Corpuscular Hgb 25.4 pg (27.0-32.0); Mean Corpuscular Volume 83.9 fL (81-99); Mean Platelet Vol. 10.9 fl (6.2-12.0); Monocyte# 0.46 X10^3/uL; NRBC Flagged by Analyzer 0 % (0-5); Neutrophil # 4.35 X10^3/uL (2.7-7.7); Neutrophil % 75.2 % (47-70); Platelet Count 303 K/mm3 (150-450); RBC Distribution Width CV 15.7 % (11.6-14.6); RBC Distribution Width SD 47.5 fl (35.1-43.9); Red Blood Count 3.42 M/mm3 (4.2-5.4); White Blood Count 5.8 K/mm3 (4.4-11.0)
[2020-03-13 06:53] LABS: Anion Gap 7 (5-15); BUN 18 mg/dL (7-18); Calcium,Total 8.6 mg/dL (8.5-10.1); Chloride 106 mmol/L (98-107); Creatinine, Serum 1.64 mg/dL (0.55-1.02); EST Glomerular Filtration Rate 32 mL/min (>60); Est Glom Filt Rate - Afr Amer 38 mL/min (>60); Estimated Creatinine Clearance 22.98 ml/min; Glucose 107 mg/dL (74-106); Sodium Level 140 mmol/L (136-145)
[2020-03-13] MEDS: Albuterol 2.5 MG/3 ML VIAL.NEB. INHALATION ×3 (07:20→18:48)
[2020-03-13] MEDS: Budesonide Respules 0.5 MG/2 ML AMPUL.NEB. INHALATION ×2 (07:20→18:48)
[2020-03-13] MEDS: Metoprolol Tartrate 25 MG Tablet 12.5 MG PO ×2 (08:21→21:22)
[2020-03-13] MEDS: Cyanocobalamin 500 MCG Tablet 1000 MCG PO (08:23)
[2020-03-13] MEDS: Ascorbic Acid 500 MG Tablet PO ×2 (08:24→18:17)
[2020-03-13] MEDS: Pantoprazole Sodium 40 MG Tablet PO (08:24)
[2020-03-13] MEDS: Montelukast 10 MG Tablet PO (08:24)
--- NOTE | 2020-03-13 09:36 | PN_ITS ---
Subjective: Feels better than when she came in, no issues overnight Vitals/I&O's: Vital Signs Temp Pulse Resp BP Pulse Ox 97.7 F L 63 18 154/64 H 96 03/13/20 08:15 03/13/20 08:21 03/13/20 08:15 03/13/20 08:15 03/13/20 08:15 Oxygen Delivery Method Room Air Weight: 165 lb Body Mass Index (BMI) 27.4 Intake and Output for Last 24 Hours 03/11/20 03/12/20 03/13/20 23:59 23:59 23:59 Intake Total 1280 / 1680 500 / 500 Output Total 400 / 2000 2150 / 2150 Balance 880 / -320 -1650 / -1650 General: Alert, Oriented x3, Cooperative, No apparent distress HEENT: Atraumatic, PERRLA, EOMI, Normocephalic Oral: Moist Mucosa Neck: Supple, No JVD Lungs: Clear to auscultation, Normal air movement, No rhonchi, No wheeze, No rales, Diminished Cardiovascular: Regular rate, Regular Rhythm, Normal S1, Normal S2, Murmur - 2 out of 6 right upper sternal border Abdomen: Soft, Non Tender, Non-Distended, No Hepato-splenomegaly Extremities: No edema, Capillary Refill Less than 3 Seconds Skin: No rashes, No breakdown Neurological: Neuro grossly intact, Sensory exam intact to light touch and pain Psych/Mental Status: Normal Affect, Appropriate Laboratory Results 03/12/20 09:30: COVID-19 (DAVE) Negative 03/12/20 09:30: WBC 6.5, RBC 2.44 L, Hgb 6.0 L*, Hct 20.8 L, MCV 85.2, MCH 24.6 L, MCHC 28.8 L, RDW Std Deviation 50.4 H, RDW Coeff of Jung 16.4 H, Plt Count 286, MPV 10.9, Immature Gran % (Auto) 0.300, Neut % (Auto) 74.3 H, Lymph % (Auto) 15.5 L, [place] % (Auto) 6.8, Eos % (Auto) 2.3, Baso % (Auto) 0.8, Absolute Neuts (auto) 4.8, Absolute Lymphs (auto) 1.01, Nucleated RBC % 0, Diff Path Review May foll 03/12/20 09:30: Sodium 141, Potassium 4.2, Chloride 108 H, Carbon Dioxide 25.0, Anion Gap 8, BUN 16, Creatinine 1.54 H, Estim Creat Clear Calc 26.44, Est GFR (MDRD) Af Amer 41 L, Est GFR (MDRD) Non-Af 34 L, BUN/Creatinine Ratio 10.4, G lucose 142 H, Calcium 8.6, Troponin I < 0.015 03/12/20 09:30: B-Natriuretic Peptide 309.2 H 03/12/20 09:30: Blood Type O POSITIVE, Antibody Screen NEGATIVE 03/12/20 09:30: Urine Color Yellow, Urine Clarity Clear, Urine pH 6.5, Ur Specific Parker 1.010, Urine Protein Negative, Urine Glucose (UA) Normal, Urine Ketones Negative, Urine Occult Blood 50 H, Urine Nitrite Negative, Urine Bilirubin Negative, Urine Urobilinogen Normal, Ur Leukocyte Esterase 100 H, Urine RBC 0 SEEN, Urine WBC 0-5 SEEN, Ur Squamous Epith Cells 0 SEEN, Urine Bacteria RARE, Urine Mucus 0 SEEN 03/12/20 09:30: Crossmatch See Detail 03/12/20 09:30: Iron 17 L, TIBC 418, Iron Saturation 4.1 L, Ferritin 7 L, Total Bilirubin 0.20, Direct Bilirubin 0.10, AST 32, ALT 22, Alkaline Phosphatase 85, Lactate Dehydrogenase 246, Total Protein 7.3, Albumin 3.3, Globulin 4.0 03/12/20 11:35: Retic Count 1.42, Immature Retic Fraction 15.80, Retic Hgb Equivalent 20.1 L 03/12/20 11:35: Haptoglobin Pending 03/13/20 05:30: WBC 5.8, RBC 3.42 L, Hgb 8.7 L, Hct 28.7 L, MCV 83.9, MCH 25.4 L , MCHC 30.3 L D, RDW Std Deviation 47.5 H, RDW Coeff of Jung 15.7 H, Plt Count 303, MPV 10.9, Immature Gran % (Auto) 0.300, Neut % (Auto) 75.2 H, Lymph % (Auto) 12.3 L, [place] % (Auto) 8.0, Eos % (Auto) 3.5, Baso % (Auto) 0.7, Absolute Neuts (auto) 4.4, Absolute Lymphs (auto) 0.71 L, Nucleated RBC % 0 03/13/20 05:30: Sodium 140, Potassium 4.0, Chloride 106, Carbon Dioxide 27.0, Anion Gap 7, BUN 18, Creatinine 1.64 H, Estim Creat Clear Calc 22.98, Est GFR (MDRD) Af Amer 38 L, Est GFR (MDRD) Non-Af 32 L, BUN/Creatinine Ratio 11.0, Glucose 107 H, Calcium 8.6 Current Medications Acetaminophen (Tylenol) 650 mg PO Q6H PRN PRN PRN Reason: Pain Score 1-10/Temp > 100.7 F Last Admin: 03/13/20 08:37 Dose: 325 mg Documented by: Albuterol Sulfate (Ventolin Aerosols) 2.5 mg INHALATION Q4H PRN PRN PRN Reason: SOB &/OR WHEEZING Albuterol Sulfate (Ventolin Aerosols) 2.5 mg INHALATION Q6HWA.RT [facility] Last Admin: 03/13/20 07:20 Dose: 2.5 mg Documented by: Ascorbic Acid (Vitamin C) 500 mg PO BIDCM [facility] Last Admin: 03/13/20 08:24 Dose: 500 mg Documented by: Budesonide (Pulmicort Aerosol) 0.5 mg INHALATION Q12H.RT [facility] Last Admin: 03/13/20 07:20 Dose: 0.5 mg Documented by: Cyanocobalamin (Vitamin B12) 1,000 mcg PO DAILY [facility] Last Admin: 03/13/20 08:23 Dose: 1,000 mcg Documented by: Ferrous Sulfate (Ferrous Sulfate) 325 mg PO 1200,1700 [facility] Last Admin: 03/12/20 17:13 Dose: 325 mg Documented by: Guaifenesin (Mucinex) 1,200 mg PO BID PRN PRN PRN Reason: COUGH Hydralazine HCl (Apresoline Iv) 5 mg IV Q6H PRN PRN PRN Reason: BLOOD PRESSURE Last Admin: 03/13/20 06:10 Dose: 5 mg Documented by: Hydroxyzine Pamoate (Vistaril Pamoate Capsule) 50 mg PO TID PRN PRN PRN Reason: ANXIETY Sodium Chloride () 500 mls @ 15 mls/hr IV PRN PRN PRN Reason: Blood Transfusion Sodium Chloride () 250 mls @ 15 mls/hr IV .[id number] PRN PRN Reason: Saline Flush Sodium Chloride () 250 mls @ 15 mls/hr IV .[id number] PRN PRN Reason: Additional IVPB Infusion Melatonin (Melatonin) 3 mg PO QHS PRN PRN PRN Reason: INSOMNIA Metoprolol Tartrate (Lopressor (Beta Ron)) 12.5 mg PO BID [facility] Last Admin: 03/13/20 08:21 Dose: 12.5 mg Documented by: Montelukast Sodium (Singulair) 10 mg PO DAILY [facility] Last Admin: 03/13/20 08:24 Dose: 10 mg Documented by: Ondansetron HCl (Zofran) 4 mg IV Q8H PRN PRN PRN Reason: NAUSEA/VOMITING Pantoprazole Sodium (Protonix) 40 mg PO DAILY [facility] Last Admin: 03/13/20 08:24 Dose: 40 mg Documented by: Sodium Chloride () 10 - 40 ml IV UD PRN PRN Reason: SALINE FLUSH Last Admin: 03/13/20 06:10 Dose: 10 ml Documented by: Throat Lozenges (Cepacol Sore Throat Lozenge) 1 lozenge MUCOUS MEM Q2H PRN PRN PRN Reason: SORE THROAT Last Admin: 03/13/20 05:40 Dose: 1 lozenge Documented by: STROKE Vital Signs/Narrative: Vital Signs Temp Pulse Resp BP Pulse Ox 03/13/20 08:21 63 03/13/20 08:15 97.7 F L 63 18 154/64 H 96 03/13/20 07:20 65 16 94 03/13/20 06:10 54 L 165/73 H 03/13/20 05:48 20 H 96 03/13/20 05:37 97.6 F L 54 L 20 H 165/73 H 97 Medical Necessity - Tobacco Use Smoking Status: Former smoker Tobacco Use: Cigarettes Assessment/Plan All Active Problems (Last Reviewed 02/23/20 @ 16:50 by Yanely Reyes) Severe anemia (Acute) Lower extremity edema (Acute) Contusion of left foot, initial encounter (Acute) Vitamin B12 deficiency (Acute) Vitamin D deficiency (Acute) Pneumonia (Acute) 1. Acute on chronic iron deficiency anemia/vitamin B12 deficiency -This is likely the cause of her anemia, there is no signs of bleeding -Her haptoglobin is pending however her LDH was normal and her bilirubin is normal indicating that there is no hemolysis -Her iron level is 17, and her iron saturation is 4.1 with a ferritin of 7 and TIBC of 418 -She is receiving 2 units of PRBCs and will likely need to have iron transfusions as an outpatient -Also she is having hypoproliferation with reticulocyte count of only 1.42 in the setting of her significant anemia -Continue with her home B12 -We will start her on iron with vitamin C given her PPI 2. COPD not in exacerbation -Continue with her inhalers -Continue with her Singulair 3. HTN/possible CHF -Blood pressure is stable -With her orthopnea and her elevated BNP to 300, as well as a murmur which she says she did not know she had, will obtain an echo for further evaluation she was also given a dose of Lasix between her units of blood -Continue with her metoprolol 4. GERD -Stable -Continue with Protonix DVT: SCDs Inpatient E&M: 09583 Subs Hosp L2
[2020-03-13 11:07] LABS: Haptoglobin 237 mg/dL (41-333)
[2020-03-13] MEDS: Ferrous Sulfate 325 MG Tablet PO ×2 (12:38→18:16)
--- NOTE | 2020-03-13 15:21 | NURSING ---
Pt woke up and had a severe Headache. 04/11. I havent had a headache like this in a long time. BP checked, see intervention. prn Hydralazine given. will monitor bp.
--- NOTE | 2020-03-13 15:47 | NURSING ---
Dr. Kat aware of HR, BP and SOB wCarmelina Castellanos ordered along with H&H at 1900 tonight.
[2020-03-13] MEDS: amLODIPine 10 MG Tablet PO (18:14)
[2020-03-13 19:37] LABS: Hematocrit 29.9 % (37-47); Hemoglobin 9.3 g/dL (12.0-15.0)
[2020-03-13] MEDS: traMADol 50 MG Tablet PO (20:51)
[2020-03-13] MEDS: hydrOXYzine PAM 25 MG Capsule 50 MG PO (21:16)
[2020-03-13] MEDS: DiphenhydrAMINE 25 MG Capsule PO (21:16)
[2020-03-14] VITALS (7 sets, daily range): BP systolic 115–128; BP diastolic 63–79; PULSE 62–70; RESP 18–20; TEMP 36.5–37; O2SAT 95–98
[2020-03-14] MEDS: Acetaminophen 325 MG Tablet 650 MG PO (03:47)
[2020-03-14 05:33] LABS: Absolute Lymphocyte Count 0.79 X10^3/uL (0.83-4.51); Basophil# 0.05 X10^3/uL; Basophil% 0.7 % (0-1); Eosinophil# 0.27 X10^3/uL; Hematocrit 28.1 % (37-47); Hemoglobin 8.6 g/dL (12.0-15.0); Lymphocyte # 0.79 X10^3/ul (4.0); Lymphocyte % 11.7 % (19-41); Mean Corp Hgb Conc 30.6 g/dL (32-36); Mean Corpuscular Hgb 25.8 pg (27.0-32.0); Mean Corpuscular Volume 84.4 fL (81-99); Monocyte# 0.65 X10^3/uL; Monocyte% 9.6 % (0-10); NRBC Flagged by Analyzer 0 % (0-5); Neutrophil # 4.97 X10^3/uL (2.7-7.7); Neutrophil % 73.7 % (47-70); Platelet Count 279 K/mm3 (150-450); RBC Distribution Width CV 16.7 % (11.6-14.6); RBC Distribution Width SD 50.6 fl (35.1-43.9); Red Blood Count 3.33 M/mm3 (4.2-5.4); White Blood Count 6.8 K/mm3 (4.4-11.0)
[2020-03-14 05:44] LABS: Anion Gap 8 (5-15); BUN 15 mg/dL (7-18); BUN/Creat Ratio 10.4 RATIO (10-20); Calcium,Total 8.5 mg/dL (8.5-10.1); Chloride 105 mmol/L (98-107); Creatinine, Serum 1.44 mg/dL (0.55-1.02); EST Glomerular Filtration Rate 37 mL/min (>60); Est Glom Filt Rate - Afr Amer 45 mL/min (>60); Estimated Creatinine Clearance 26.17 ml/min; Glucose 97 mg/dL (74-106); Potassium 3.7 mmol/L (3.5-5.1); Sodium Level 138 mmol/L (136-145)
[2020-03-14] MEDS: Ascorbic Acid 500 MG Tablet PO (08:08)
[2020-03-14] MEDS: Metoprolol Tartrate 25 MG Tablet 12.5 MG PO (08:08)
[2020-03-14] MEDS: Cyanocobalamin 500 MCG Tablet 1000 MCG PO (08:10)
[2020-03-14] MEDS: Pantoprazole Sodium 40 MG Tablet PO (08:10)
[2020-03-14] MEDS: Montelukast 10 MG Tablet PO (08:10)
[2020-03-14] MEDS: amLODIPine 10 MG Tablet PO (08:14)
--- NOTE | 2020-03-14 10:15 | DCINST_ITS ---
You will use the following diet at home:: No restrictions Your food should be the consistency of: Regular Discharge Activity: Return to Normal Activity Allergies/Adverse Reactions: Allergies lisinopril Adverse Reaction (Verified 03/12/20 12:26) Swelling Medications to take at Discharge Albuterol Inhaler [Ventolin Hfa] 1 - 2 puff INHALATION Q4H PRN PRN #1 inhaler 11/28/17 Fluticasone/Vilanterol [Breo Ellipta 100-25 Mcg INH] 1 ea IH DAILY 02/11/18 Pantoprazole Sodium 40 mg PO DAILY 07/17/19 Albuterol Aerosols [Ventolin Aerosols] 2.5 mg INHALATION Q4H PRN PRN 03/12/20 Cyanocobalamin (Vitamin B-12) [Vitamin B-12] 1,000 mcg PO DAILY 03/12/20 Metoprolol Tartrate 12.5 mg PO BID 03/12/20 Montelukast [Singulair] 10 mg PO DAILY 03/12/20 hydrOXYzine pamoate capsule [Vistaril pamoate capsule] 50 mg PO TID PRN PRN 03/12/20 Amlodipine [Norvasc] 5 mg PO DAILY #60 tab 03/14/20 Ascorbic Acid [Vitamin C] 500 mg PO BIDCM #120 tab 03/14/20 Ferrous Sulfate 325 mg PO 1200,1700 #120 tab 03/14/20 Senna [Senokot] 1 tab PO DAILY #30 tab 03/14/20 The following prescriptions were given: Ferrous Sulfate 325 mg PO 1200,1700 #120 tab Transmission Status: Received by EMILE BUENO [facility] Amlodipine [Norvasc] 5 mg PO DAILY #60 tab Transmission Status: Received by EIMLE BUENO [facility] Senna [Senokot] 1 tab PO DAILY #30 tab Transmission Status: Received by EMILE BUENO [facility] Ascorbic Acid [Vitamin C] 500 mg PO BIDCM #120 tab Transmission Status: Received by EMILE BUENO [facility] Primary Care Physician: Jethro Goel [Primary Care Provider] - Please follow up with your Primary Care Physician in: 1 to 2 weeks Test Results: Test results from this visit will be discussed in further detail at your follow- up appointment, if applicable. Proposed Discharge Date: 03/14/20
[2020-03-14] MEDS: Ferrous Sulfate 325 MG Tablet PO (12:34)
[2020-03-14 13:08] LABS: Pathologist Review Reviewed
--- NOTE | 2020-03-14 14:56 | PCM.DC.SUM ---
Discharge Date and Diagnosis Date of Admission: 03/12/20 Date of Discharge: 03/14/20 - Primary Discharge Diagnosis Acute Problems: Acute symptomatic anemia - Secondary Discharge Diagnosis Chronic Problems: Chronic Problems (Last Reviewed 02/23/20 @ 16:50 by Yanely Reyes) COPD exacerbation (Chronic) Chronic anemia (Chronic) Disorder of bone and cartilage (Chronic) Dysmetabolic syndrome (Chronic) Lichen sclerosus (Chronic) Hypercholesteremia (Chronic) Multiple pulmonary nodules (Chronic) Osteopenia (Chronic) Seborrheic keratoses (Chronic) Obesity (Chronic) Fatigue (Chronic) Diverticula of colon (Chronic) CVA (cerebral vascular accident) (Chronic) Anemia (Chronic) Hypertrophy of nasal turbinates (Chronic) Chronic renal failure, stage 3 (moderate) (Chronic) Urinary, incontinence, stress female (Chronic) Bronchiectasis (Chronic) Anxiety (Chronic) HTN (hypertension) (Chronic) GERD (gastroesophageal reflux disease) (Chronic) Tobacco abuse (Chronic) HLD (hyperlipidemia) (Chronic) Hospital Course and Treatment Operations: None Summary of Care Provided: The patient is a 84 year old F admitted with progressive generalized weakness found to be anemic 1. Acute symptomatic anemia; admitted to regular nursing floor patient was transfused with 2 unit PRBC 2. Hypertension - Blood pressure controlled, home medications continued with dose adjustment as needed 3. Acute congestive heart failure with preserved ejection fraction ?This was possibly precipitated by patient's anemia did receive Lasix with improvement in her condition echo demonstrated preserved ejection fraction of 65% with elevated RVSP of 45 4. COPD not in exacerbation 5. GERD on PPI - Physical Exam Vitals/I&O's: Vital Signs Temp Pulse Resp BP Pulse Ox 98.6 F 64 18 127/66 H 98 03/14/20 07:57 03/14/20 08:08 03/14/20 08:49 03/14/20 08:08 03/14/20 07:57 Oxygen Delivery Method Room Air Weight: 74.843 kg Body Mass Index (BMI) 27.4 Intake and Output for Last 24 Hours 03/12/20 03/13/20 03/14/20 23:59 23:59 23:59 Intake Total 1280 / 1680 1340 / 1840 1300 / 1300 Output Total 400 / 2000 2650 / 2650 400 / 400 Balance 880 / -320 -1310 / -810 900 / 900 General: Cooperative Neck: Supple Lungs: Diminished Neurological: Neuro grossly intact Psych/Mental Status: Normal Affect Laboratory Results 03/12/20 09:30: Diff Path Review Reviewed 03/13/20 19:24: Hgb 9.3 L, Hct 29.9 L 03/14/20 05:16: WBC 6.8, RBC 3.33 L, Hgb 8.6 L, Hct 28.1 L, MCV 84.4, MCH 25.8 L, MCHC 30.6 L, RDW Std Deviation 50.6 H, RDW Coeff of Jung 16.7 H, Plt Count 279, MPV 10.0, Immature Gran % (Auto) 0.300, Neut % (Auto) 73.7 H, Lymph % (Auto) 11.7 L, [place] % (Auto) 9.6, Eos % (Auto) 4.0, Baso % (Auto) 0.7, Absolute Neuts (auto) 5.0, Absolute Lymphs (auto) 0.79 L, Nucleated RBC % 0 03/14/20 05:16: Sodium 138, Potassium 3.7, Chloride 105, Carbon Dioxide 25.0, Anion Gap 8, BUN 15, Creatinine 1.44 H, Estim Creat Clear Calc 26.17, Est GFR (MDRD) Af Amer 45 L, Est GFR (MDRD) Non-Af 37 L, BUN/Creatinine Ratio 10.4, Glucose 97, Calcium 8.5 Current Medications Acetaminophen (Tylenol) 650 mg PO Q6H PRN PRN PRN Reason: Pain Score 1-10/Temp > 100.7 F Last Admin: 03/14/20 03:47 Dose: 650 mg Documented by: Albuterol Sulfate (Ventolin Aerosols) 2.5 mg INHALATION Q4H PRN PRN PRN Reason: SOB &/OR WHEEZING Last Admin: 03/13/20 18:48 Dose: 2.5 mg Documented by: Albuterol Sulfate (Ventolin Aerosols) 2.5 mg INHALATION Q6HWA.RT [facility] Last Admin: 03/14/20 06:57 Dose: Not Given Documented by: Amlodipine Besylate (Norvasc) 10 mg PO DAILY [facility] Last Admin: 03/14/20 08:14 Dose: 10 mg Documented by: Ascorbic Acid (Vitamin C) 500 mg PO BIDCM [facility] Last Admin: 03/14/20 08:08 Dose: 500 mg Documented by: Budesonide (Pulmicort Aerosol) 0.5 mg INHALATION Q12H.RT [facility] Last Admin: 03/14/20 06:57 Dose: Not Given Documented by: Cyanocobalamin (Vitamin B12) 1,000 mcg PO DAILY [facility] Last Admin: 03/14/20 08:10 Dose: 1,000 mcg Documented by: Ferrous Sulfate (Ferrous Sulfate) 325 mg PO 1200,1700 [facility] Last Admin: 03/14/20 12:34 Dose: 325 mg Documented by: Guaifenesin (Mucinex) 1,200 mg PO BID PRN PRN PRN Reason: COUGH Hydralazine HCl (Apresoline Iv) 5 mg IV Q6H PRN PRN PRN Reason: BLOOD PRESSURE Last Admin: 03/13/20 15:19 Dose: 5 mg Documented by: Hydroxyzine Pamoate (Vistaril Pamoate Capsule) 50 mg PO TID PRN PRN PRN Reason: ANXIETY Last Admin: 03/13/20 21:16 Dose: 50 mg Documented by: Sodium Chloride () 500 mls @ 15 mls/hr IV PRN PRN PRN Reason: Blood Transfusion Sodium Chloride () 250 mls @ 15 mls/hr IV .[id number] PRN PRN Reason: Saline Flush Sodium Chloride () 250 mls @ 15 mls/hr IV .[id number] PRN PRN Reason: Additional IVPB Infusion Melatonin (Melatonin) 3 mg PO QHS PRN PRN PRN Reason: INSOMNIA Metoprolol Tartrate (Lopressor (Beta Ron)) 12.5 mg PO BID [facility] Last Admin: 03/14/20 08:08 Dose: 12.5 mg Documented by: Montelukast Sodium (Singulair) 10 mg PO DAILY [facility] Last Admin: 03/14/20 08:10 Dose: 10 mg Documented by: Ondansetron HCl (Zofran) 4 mg IV Q8H PRN PRN PRN Reason: NAUSEA/VOMITING Pantoprazole Sodium (Protonix) 40 mg PO DAILY [facility] Last Admin: 03/14/20 08:10 Dose: 40 mg Documented by: Sodium Chloride () 10 - 40 ml IV UD PRN PRN Reason: SALINE FLUSH Last Admin: 03/13/20 15:26 Dose: 10 ml Documented by: Throat Lozenges (Cepacol Sore Throat Lozenge) 1 lozenge MUCOUS MEM Q2H PRN PRN PRN Reason: SORE THROAT Last Admin: 03/13/20 05:40 Dose: 1 lozenge Documented by: Discharge Diet: No Restrictions Discharge Activity: Return to Normal Activity Home Medications: Medications to take at Discharge Albuterol Inhaler [Ventolin Hfa] 1 - 2 puff INHALATION Q4H PRN PRN #1 inhaler 11/28/17 Fluticasone/Vilanterol [Breo Ellipta 100-25 Mcg INH] 1 ea IH DAILY 02/11/18 Pantoprazole Sodium 40 mg PO DAILY 07/17/19 Albuterol Aerosols [Ventolin Aerosols] 2.5 mg INHALATION Q4H PRN PRN 03/12/20 Cyanocobalamin (Vitamin B-12) [Vitamin B-12] 1,000 mcg PO DAILY 03/12/20 Metoprolol Tartrate 12.5 mg PO BID 03/12/20 Montelukast [Singulair] 10 mg PO DAILY 03/12/20 hydrOXYzine pamoate capsule [Vistaril pamoate capsule] 50 mg PO TID PRN PRN 03/12/20 Amlodipine [Norvasc] 5 mg PO DAILY #60 tab 03/14/20 Ascorbic Acid [Vitamin C] 500 mg PO BIDCM #120 tab 03/14/20 Ferrous Sulfate 325 mg PO 1200,1700 #120 tab 03/14/20 Senna [Senokot] 1 tab PO DAILY #30 tab 03/14/20 Following Prescrptions Were Given to Patient: Ferrous Sulfate 325 mg PO 1200,1700 #120 tab Transmission Status: Received by EMILE ALCANTAR[address] [place] [address] Amlodipine [Norvasc] 5 mg PO DAILY #60 tab Transmission Status: Received by EMILE ALCANTAR[address] [place] [address] Senna [Senokot] 1 tab PO DAILY #30 tab Transmission Status: Received by EMILE ZHOU[address] [place] [address] Ascorbic Acid [Vitamin C] 500 mg PO BIDCM #120 tab Transmission Status: Received by SIMEON KATHARINE[address] [place] [address] Primary Care Physician: Jethro Goel [Primary Care Provider] - Please follow up with your Primary Care Physician in: 1 to 2 weeks Disposition: Home Minutes spent on discharge:: 35 Patient Condition:: Stable Medical Necessity - Tobacco Use Smoking Status: Former smoker Tobacco Use: Cigarettes Meaningful Use Info Meaningful Use Diagnoses (Choose all that apply): None applicable Inpatient E&M: 62299 Disch Hosp
--- NOTE | 2020-03-15 15:42 | CASEMGMT ---
GILES CAMACHO Discharge Follow-up Phone Call: LORIN: Jacob Strata: 3 Call Date: 03/15/20 Discharge Date: 03/14/20 Time of Call: 1540 Duration: 2 min Admitting Diagnosis: Acute on chronic Anemia RN JANICE completed follow-up phone call after recent hospitalization. Patient's daughter answered phone as those are the daughter's phone numbers listed for patient. Daughter states patient is doing well. Were able to fill prescriptions without any issues. No further questions or concerns.
== END 2020-03-14 15:57 | disposition home or self-care (01) | DRG 811 ==
LOC: ED 10:11 → MS3 10:54
PROVIDERS: Admitting Provider Family Medicine; Emergency Provider Emergency Medicine; PCP Student in an Organized Health Care Education/Training Program; Visit Provider Internal Medicine
DX: D50.9 Iron deficiency anemia, unspecified (principal); I13.0 Hypertensive heart and chronic kidney disease with heart failure and stage 1 through stage 4 chronic kidney disease, or unspecified chronic kidney disease; I50.31 Acute diastolic (congestive) heart failure; E53.8 Deficiency of other specified B group vitamins; N18.3 Chronic kidney disease, stage 3 (moderate); J44.9 Chronic obstructive pulmonary disease, unspecified; E78.5 Hyperlipidemia, unspecified; K21.9 Gastro-esophageal reflux disease without esophagitis; F41.9 Anxiety disorder, unspecified; E66.9 Obesity, unspecified; Z68.27 Body mass index [BMI] 27.0-27.9, adult; Z79.899 Other long term (current) drug therapy; Z87.891 Personal history of nicotine dependence; Z86.73 Personal history of transient ischemic attack (TIA), and cerebral infarction without residual deficits
CPT/HCPCS: 36415; 70450; 71045; 80048; 80076; 81001; 82728; 83010; 83540; 83550; 83615; 83880; 84484; 85014; 85018; 85025; 85045; 86850; 86900; 86901; 86920; 86922; 87635; 93005; 93306; 94640; 97162; 97165; 99285; G2023; J7040; P9016; A4216; J1940; U0003

== ENCOUNTER 2020-06-13 08:01 | Emergency (ER) | payer MEDICARE, MEDICAID, SELFPAY ==
[2020-03-12 11:18] VITALS: BMI 27.4
[2020-06-13 08:02] VITALS: BP 189/103; PULSE 81; RESP 16; TEMP 36.3; O2SAT 97; BMI 25.3
--- NOTE | 2020-06-13 08:14 | ED.VIS.GEN ---
History of Present Illness Chief Complaint: Bite Informant: Patient Narrative: 85-year-old female with past medical history of COPD and anemia presents with concern for rash and lesions to her bilateral arms. States that this began approximately 2 weeks ago. Has been treated with oral and topical steroids without relief. Denies any fever or chills. Denies any environmental contacts. Past Medical History - Allergies and Home Meds Allergies/Adverse Reactions: Allergies lisinopril Adverse Reaction (Verified 06/13/20 08:02) Swelling Primary Care Physician: Jethro Goel [Primary Care Provider] - Prior records reviewed: Yes Past Medical History: - - COPD and anemia Surgical History: - - Surgery for stress incontinence including a sling procedure, status post recent nasal surgery Lives: Alone Smoking Status: Former smoker Alcohol: None Drugs: None - Family History Paternal Family History: Reports: Diabetes, - - prostate CA Maternal Family History: Reports: - - breast CA Review of Systems General: Denies: Chills, Fever, Sweats Eyes: Denies: Visual changes - bilaterally, Diplopia ENT: Denies: Rhinorrhea, Sore throat Cardiovascular: Denies: Chest pain, Palpitations Respiratory: Denies: Dyspnea, Cough, Dyspnea on exertion Gastrointestinal: Denies: Abdominal pain, Nausea, Vomiting, Diarrhea, Melena, Hematochezia Genitourinary: Denies: Dysuria, Hematuria, Frequency Musculoskeletal: Denies: Back pain, Extremity Pain Skin: Reports: Rash. Denies: Wounds Neurological: Denies: Headache, Weakness, Numbness Physical Exam Vital Signs/Narrative: Vital Signs Temp Pulse Resp BP Pulse Ox 06/13/20 08:02 97.3 F L 81 16 189/103 H 97 Inital Vital Signs reviewed: Yes General: Well nourished, Well developed, No Acute Distress Head: Normocephalic, Atraumatic Eyes: Perrl, EOMI ENT: Moist mucous membranes, No rhinorrhea Neck: Supple, Nontender Cardiovascular: Regular rate, Regular rhythm, No murmurs Respiratory: No distress, CTA bilaterally, Chest nontender Abdomen: Soft, Nontender, Nondistended, Normal bowel sounds Back: Nontender, Normal Inspection Extremities: Nontender, No edema Skin: Normal color, - - Bilateral small ulcerations to the upper extremities without surrounding cellulitis. No drainage. Macular rash to the upper back. Fungal rash under bilateral breasts. Neurological: Alert, Oriented x3, Cranial nerves II-XII grossly intact, Normal Strength, Normal Sensation Psychological: Normal affect, Normal Mood Diagnostic/Tx/Re-eval - Medical Decision Making Patient appears well nontoxic. Afebrile. Bilateral upper extremity rash with a rash to the back. Unclear the cause of this rash. Advised on continued topical treatment. Patient will be referred to dermatology. No antibiotic treatment indicated at this time. Patient was concerned about her chronic anemia so lab work was done which is all at baseline. Asked to return for new or worsening symptoms. Patient agreeable and discharged home in stable condition. Impression: 1. Nonspecific dermatitis 2. Chronic anemia ED Disposition - Plan for ED Patient: Disposition: Home or Assisted Living Instructions: Self-Care for Skin Rashes Referrals: Jethro Goel [Primary Care Provider] - 2 Days Vic Lorenz MD [STAFF PHYSICIAN] - 3-5 Days
[2020-06-13 08:41] LABS: Anion Gap 4 (5-15); BUN 12 mg/dL (7-18); BUN/Creat Ratio 8.4 RATIO (10-20); Calcium,Total 9.6 mg/dL (8.5-10.1); Chloride 111 mmol/L (98-107); Creatinine, Serum 1.43 mg/dL (0.55-1.02); EST Glomerular Filtration Rate 37 mL/min (>60); Est Glom Filt Rate - Afr Amer 45 mL/min (>60); Estimated Creatinine Clearance 27.97 ml/min; Glucose 111 mg/dL (74-106); Potassium 4.3 mmol/L (3.5-5.1); Sodium Level 142 mmol/L (136-145)
[2020-06-13 08:58] LABS: Absolute Lymphocyte Count 0.74 X10^3/uL (0.83-4.51); Absolute Neutrophil Count 4.2 X10^3/uL (2.0-7.7); Basophil# 0.04 X10^3/uL; Basophil% 0.7 % (0-1); Eosinophils% 1.8 % (0-5); Hematocrit 37.7 % (37-47); Hemoglobin 11.4 g/dL (12.0-15.0); Lymphocyte # 0.74 X10^3/ul (4.0); Lymphocyte % 13.5 % (19-41); Mean Corp Hgb Conc 30.2 g/dL (32-36); Mean Corpuscular Hgb 28.3 pg (27.0-32.0); Mean Corpuscular Volume 93.5 fL (81-99); Mean Platelet Vol. 9.9 fl (6.2-12.0); Monocyte% 7.3 % (0-10); NRBC Flagged by Analyzer 0 % (0-5); Neutrophil # 4.19 X10^3/uL (2.7-7.7); Neutrophil % 76.3 % (47-70); POSITIVE MORPHOLOGY YES; Platelet Count 273 K/mm3 (150-450); RBC Distribution Width SD 72.2 fl (35.1-43.9); Red Blood Count 4.03 M/mm3 (4.2-5.4); White Blood Count 5.5 K/mm3 (4.4-11.0)
[2020-06-13 09:04] LABS: Differential Indicated SCAN CRITERIA MET
[2020-06-13 09:47] LABS: Anisocytosis 1+; Differential Comment SCANNED; Ovalocyte 2+; Red Cell Morphology N CHROM NORMAL (NORM C&C)
== END 2020-06-13 09:38 | disposition home or self-care (01) ==
PROVIDERS: Emergency Provider Emergency Medicine; PCP Student in an Organized Health Care Education/Training Program
DX: L30.9 Dermatitis, unspecified (principal); D64.9 Anemia, unspecified
CPT/HCPCS: 36415; 80048; 85025; 99281; 99283

== ENCOUNTER 2020-07-30 09:18 | Emergency (ER) | payer MEDICARE, SELFPAY ==
[2020-07-30 09:19] VITALS: BP 172/92; PULSE 78; RESP 20; TEMP 36.9; O2SAT 98; BMI 26.1
--- NOTE | 2020-07-30 09:52 | RAD_ITS ---
STUDY: X-RAY CHEST REASON FOR EXAM: Female, 85 years old. cough, headache x 1 week -- copd TECHNIQUE: AP COMPARISON: 03/12/2020 FINDINGS: EKG leads project over the chest. There are interstitial fibrotic changes of the lungs. There is no demonstrated pleural abnormality. Normal size heart. Normal mediastinum and rasheed. Normal visualized pulmonary arteries. There is atherosclerotic calcification of the aortic arch with tortuosity. Normal visualized thoracic spine. Normal visualized ribs, clavicles, and shoulders. Hiatal hernia noted. RAD/Chest 1 View (Portable) IMPRESSION: Stable, nonacute portable x-ray examination of the chest. Electronically Signed: Dylan Rodas MD ([place]) at 12:10 EST , Service support ,
[2020-07-30 10:00] VITALS: BP 154/78; PULSE 65; RESP 19; TEMP 36.9; O2SAT 94
--- NOTE | 2020-07-30 10:13 | ED.VISSUMM ---
- ER Visit Summary Date of Service: 07/30/20 Chief Complaint: Shortness of breath History of Present Illness: The patient is a 85 F who presents with shortness of breath that is been getting worse over the past week. Patient states that it has been constant over the past week. Patient states her albuterol has been helping. Patient states nothing makes it worse. Patient denies any exertional dyspnea or orthopnea. Patient admits to a cough with some green sputum. Patient admits to subjective chills but denies any fevers. Patient denies any rhinorrhea or sore throat. Patient denies any chest pain. Physical Examination: Vital signs are stable. Patient is afebrile. Patient is in no acute distress. Oral mucosa is pink and moist. Neck is supple. Trachea is midline. There is no JVD noted. Heart was regular rate and rhythm. Lungs are clear and equal bilaterally. Abdomen is soft. Bowel sounds are normal. There is no tenderness. There is no rebound or guarding noted. Skin is warm dry. Cranial nerves II through XII are intact. There are no focal motor or sensory deficits noted. Extremities are intact. There is no calf tenderness or edema. Test Results: CBC shows a mild anemia with hemoglobin of 11.0 and hematocrit 34.3. Comprehensive metabolic profile shows slightly elevated creatinine of 1.4. Rapid antigen test for COVID-19 was positive. Portable 1 view chest x-ray was obtained. On my interpretation, lung anna are clear. There are stable pulmonary nodules. There is normal cardiac silhouette. Bony thorax is normal. There is no acute process noted. Radiologist also interpreted the x-rays and agrees. Emergency Department Course and Treatment: Patient is not hypoxic. Patient has normal vital signs. Patient wants to go home. Patient was advised to quarantine herself for 2 weeks. Patient was instructed to obtain a home pulse oximeter monitor and continue to watch her oxygen saturations. Patient was instructed to return if any shortness of breath. Patient understood and was agreeable with the plan. Patient is being discharged under pandemic conditions under declare global, national, and state disaster activation, with limited medical resources. Patient, community understand this. Results discussed in layman's terms to patient satisfaction. All questions answered in layman's terms. Patient understands importance of follow-up care as directed. The patient has been instructed to return to the ED immediately if new symptoms, problems, or questions occur. We mutually agreed on the plan of disposition. Patient understands that they may call or return with any questions or concerns at any time. Disposition: Discharge home Impression: 1. COVID-19 This note was generated with [employer] dictation software. It may contain incorrect words, spelling, and punctuation that were not noted in review of the chart prior to signing ED Disposition - Plan for ED Patient: Disposition: Home or Assisted Living Diagnosis: COVID-19 Instructions: ED Upper Resp Infec No Abx Tx Referrals: Jethro Goel [Primary Care Provider] - 5-7 Days
[2020-07-30 10:14] LABS: Absolute Lymphocyte Count 0.49 X10^3/uL (0.83-4.51); Absolute Neutrophil Count 4.9 X10^3/uL (2.0-7.7); Basophil# 0.04 X10^3/uL; Basophil% 0.7 % (0-1); Eosinophil# 0.12 X10^3/uL; Hematocrit 34.3 % (37-47); Lymphocyte # 0.49 X10^3/ul (4.0); Mean Corp Hgb Conc 32.1 g/dL (32-36); Mean Corpuscular Hgb 30.6 pg (27.0-32.0); Mean Corpuscular Volume 95.5 fL (81-99); Mean Platelet Vol. 10.2 fl (6.2-12.0); Monocyte# 0.55 X10^3/uL; NRBC Flagged by Analyzer 0 % (0-5); Neutrophil # 4.88 X10^3/uL (2.7-7.7); POSITIVE DIFFERENTIAL YES; Platelet Count 311 K/mm3 (150-450); RBC Distribution Width SD 48.5 fl (35.1-43.9); Red Blood Count 3.59 M/mm3 (4.2-5.4); White Blood Count 6.1 K/mm3 (4.4-11.0)
[2020-07-30 10:16] LABS: ALB/GLOB Ratio 0.7 RATIO (0.9-2.4); AST(SGOT) 25 U/L (15-37); Alanine Aminotransfer ALT/SGPT 18 U/L (13-56); Albumin, Serum 3.3 g/dL (3.2-5.0); Alkaline Phosphatase 92 U/L (45-117); Anion Gap 5 (5-15); BUN 12 mg/dL (7-18); BUN/Creat Ratio 8.6 RATIO (10-20); Calcium,Total 9.4 mg/dL (8.5-10.1); Chloride 107 mmol/L (98-107); EST Glomerular Filtration Rate 38 mL/min (>60); Est Glom Filt Rate - Afr Amer 46 mL/min (>60); Globulin 4.7 g/dL (2.2-4.2); Glucose 110 mg/dL (74-106); Potassium 3.6 mmol/L (3.5-5.1); Sodium Level 140 mmol/L (136-145)
[2020-07-30 10:18] LABS: Differential Indicated SCAN CRITERIA MET
[2020-07-30 11:00] VITALS: BP 175/99; PULSE 92; RESP 20; TEMP 37; O2SAT 95
[2020-07-30 12:43] VITALS: BP 175/90; PULSE 70; RESP 20; O2SAT 96
== END 2020-07-30 12:59 | disposition home or self-care (01) ==
PROVIDERS: Emergency Provider Emergency Medicine; PCP Student in an Organized Health Care Education/Training Program
DX: U07.1 COVID-19 (principal); Z87.891 Personal history of nicotine dependence
CPT/HCPCS: 71045; 80053; 85025; 87426; 99283; A4216

== ENCOUNTER 2020-08-07 09:58 | Emergency (ER) | payer MEDICARE, MEDICAID, SELFPAY ==
[2020-08-07 09:59] VITALS: BP 143/78; PULSE 83; RESP 20; TEMP 36.4; O2SAT 97; BMI 26.1
--- NOTE | 2020-08-07 10:02 | ED.RN ---
ambulated into traige room from entrance sats 93%. sats recovered to 97% ra after about a minute
--- NOTE | 2020-08-07 10:12 | RAD_ITS ---
STUDY: X-RAY CHEST REASON FOR EXAM: Female, 85 years old. SOB X 2 WKS, (+) COVID 1 WK AGO. HX COPD TECHNIQUE: Single AP portable view of the chest. COMPARISON: 07/30/2020 FINDINGS: There is hyperinflation of the lungs consistent with chronic obstructive lung disease (COPD). Small focal opacity in the mid right lung worrisome for a pneumonia, atelectasis, or nodule. Correlation with CT the chest with contrast is recommended. There is no demonstrated pleural abnormality. Normal size heart. Small hiatal hernia. Normal visualized pulmonary arteries. Normal visualized aortic arch and descending thoracic aorta. Normal visualized thoracic spine. Normal visualized ribs, clavicles, and shoulders. There is no demonstrated abnormality of the visualized soft tissue structures of the upper abdomen. RAD/Chest 1 View (Portable) IMPRESSION: Emphysema with focal right lower lobe pneumonia, atelectasis, or nodule. Correlation with CT the chest with contrast is recommended. Electronically Signed: Riccardo Doty MD at 11:01 EST Tel , Service support ,
--- NOTE | 2020-08-07 10:12 | EKG12_ITS ---
Test Reason : SOB Blood Pressure : / mmHG Vent. Rate : 073 BPM Atrial Rate : 073 BPM P-R Int : 156 ms QRS Dur : 084 ms QT Int : 400 ms P-R-T Axes : 066 -29 053 degrees QTc Int : 440 ms Normal sinus rhythm with sinus arrhythmia Possible Left atrial enlargement Inferior [place], age undetermined, cannot be excluded Borderline ECG Confirmed by REBA BARLOW, ENEIDA ([id number]), book editor FLORENTIN MORLEY ([id number]) on 08/09/2020 8:43:44 AM Referred By: ELVA/JONNA Confirmed By:ENEIDA BRITTON MD
--- NOTE | 2020-08-07 10:15 | ED.DCSUM_ITS ---
- ER Visit Summary Date of Service: 08/07/20 Chief Complaint: Shortness of breath History of Present Illness: The patient is a 85 F presenting with shortness of breath. She states this started 2 weeks ago. It has been progressively worsening. She was diagnosed with Covid 1 week ago. She has had a productive cough. She denies fever or chills. Denies chest pain. She has had a decreased appetite. She complains of mild headache. Her shortness of breath is worsened with walking. Physical Examination: Vitals are stable. Patient is afebrile. Alert no acute distress. HEENT exam is unremarkable. Neck is supple. Lungs are diminished, wheezing bilaterally. Heart is regular rate and rhythm. Abdomen is soft nontender nondistended. Extremities are unremarkable. Skin is warm and dry. No focal neurologic deficit. Remainder of exam is unremarkable. Emergency Department Course and Treatment: Patient was given albuterol, Atrovent aerosols with improvement. EKG is sinus rhythm rate of 73 with no acute ischemic changes. CBC shows hemoglobin 11.7. Chemistries show glucose 122, creatinine 1.4, near her baseline. ALT 58, AST 70. Troponin 0.024. Chest x- ray shows emphysema with focal right lower lobe pneumonia, atelectasis, or nod ule. Correlation with CT the chest with contrast is recommended. CTA chest shows No CT evidence of pulmonary embolism. Patchy bibasilar predominant subsegmental atelectasis or pneumonitis. Commonly reported imaging features of Covid 19 pneumonia are present. Mild emphysema with interval development of right upper lobe and right middle lobe spiculated nodules worrisome for bronchogenic carcinoma in correlation with PET CT scan is recommended. 3 cm mass in the posterior segment right lobe liver and correlation with liver mass particles CT is recommended. Patient was advised abnormal CT findings and advised close follow-up with her primary care physician. She understands importance of follow-up. With ambulation her pulse ox remains 92 to 94% on room air. She has home O2 available to her. She is able to tolerate p.o. in the ED. She is advised signs and symptoms for which to return to the ED. She is given Decadron and a prescription for Decadron. Advised to return to ED for worsening complaints. Disposition: Discharge home Impression: COVID-19 pneumonia This note was generated with [employer] dictation software. It may contain incorrect words, spelling, and punctuation that were not noted in review of the chart prior to signing ED Disposition - Plan for ED Patient: Instructions: Coronavirus Disease 2019 (COVID-19): Overview Prescriptions: Dexamethasone [Decadron] 6 mg PO DAILY 9 Days tab Prescription Printed Referrals: Jethro Goel [Primary Care Provider] -
[2020-08-07 10:27] VITALS: O2SAT 94
[2020-08-07 10:28] VITALS: PULSE 73; RESP 16
[2020-08-07] MEDS: Ipratropium/Albuterol Sulfate 3 ML AMPUL.NEB INHALATION (10:28)
[2020-08-07 10:36] LABS: Absolute Neutrophil Count 3.6 X10^3/uL (2.0-7.7); Basophil# 0.01 X10^3/uL; Basophil% 0.2 % (0-1); Eosinophil# 0.03 X10^3/uL; Eosinophils% 0.6 % (0-5); Hematocrit 35.2 % (37-47); Hemoglobin 11.7 g/dL (12.0-15.0); Lymphocyte % 12.7 % (19-41); Mean Corp Hgb Conc 33.2 g/dL (32-36); Mean Corpuscular Hgb 30.5 pg (27.0-32.0); Mean Corpuscular Volume 91.7 fL (81-99); Mean Platelet Vol. 10.1 fl (6.2-12.0); Monocyte# 0.42 X10^3/uL; Monocyte% 8.9 % (0-10); NRBC Flagged by Analyzer 0 % (0-5); Neutrophil # 3.64 X10^3/uL (2.7-7.7); Neutrophil % 77.2 % (47-70); POSITIVE DIFFERENTIAL YES; Platelet Count 293 K/mm3 (150-450); RBC Distribution Width CV 14.1 % (11.6-14.6); RBC Distribution Width SD 46.6 fl (35.1-43.9); Red Blood Count 3.84 M/mm3 (4.2-5.4); White Blood Count 4.7 K/mm3 (4.4-11.0)
[2020-08-07 10:54] LABS: ALB/GLOB Ratio 0.7 RATIO (0.9-2.4); AST(SGOT) 70 U/L (15-37); Alanine Aminotransfer ALT/SGPT 58 U/L (13-56); Albumin, Serum 3.1 g/dL (3.2-5.0); Alkaline Phosphatase 94 U/L (45-117); Anion Gap 10 (5-15); BUN 16 mg/dL (7-18); BUN/Creat Ratio 11.4 RATIO (10-20); Calcium,Total 8.5 mg/dL (8.5-10.1); Chloride 108 mmol/L (98-107); EST Glomerular Filtration Rate 38 mL/min (>60); Est Glom Filt Rate - Afr Amer 46 mL/min (>60); Globulin 4.7 g/dL (2.2-4.2); Glucose 122 mg/dL (74-106); Potassium 3.9 mmol/L (3.5-5.1); Protein, Total 7.8 g/dL (6.4-8.2); Sodium Level 139 mmol/L (136-145)
[2020-08-07 11:01] LABS: Differential Indicated SCAN CRITERIA MET
[2020-08-07 11:02] LABS: Differential Comment SCANNED
--- NOTE | 2020-08-07 11:04 | CT_ITS ---
STUDY: CTA CHEST REASON FOR EXAM: Female, 85 years old. SOB + COVID AND COPD RADIATION DOSAGE (If Supplied By Facility): CTDIvol = ( 8.90 ) mGy, DLP = ( 336.01 ) mGycm TECHNIQUE: The examination was performed with the intravenous administration of IV 100mL Isovue-370. Post-processing of the angiographic images was performed, with multiplanar reformation and 3D reconstruction. Individualized dose optimization techniques were used for this CT. COMPARISON: 07/22/2019, chest x-ray earlier today FINDINGS: Normal enhancement of the main pulmonary artery and right and left pulmonary arteries. Normal enhancement of the bilateral peripheral pulmonary arteries. There is no demonstrated pulmonary embolism. There is atherosclerotic calcification of the aortic arch with tortuosity. There is no demonstrated aortic dissection. Normal heart and pericardium. Large hiatal hernia. Normal mediastinum. Normal hilar regions. Normal visualized trachea and bronchi. The lungs are well expanded. Mild emphysematous changes. Mild bilateral apical scarring. Patchy bibasilar predominant peripheral groundglass opacities consistent with subsegmental atelectasis or pneumonitis. Interval development of a 1 cm spiculated nodule in the right upper lobe the lungs on image 123 worrisome for bronchogenic carcinoma correlation with PET CT scan is recommended. Interval development of a 2 cm thick related nodule in the periphery of the right middle lobe the lungs on image 73 worrisome for bronchogenic carcinoma in correlation with PET CT scan is recommended. No change in the 8 mm subpleural nodule in the left lower lobe lungs on image 60 also no change in the 6 mm noncalcified nodule in the inferior lingula of the left lung on image 83. Normal pleura. Normal chest wall structures. Normal osseous structures. 3 cm mass of decreased attenuation in the posterior segment the right lobe of liver and correlation with liver mass protocol CT is recommended. CT/CTA Chest W/WO Contrast IMPRESSION: 1. No CT evidence of pulmonary embolism. 2. Patchy bibasilar predominant subsegmental atelectasis or pneumonitis. Commonly reported imaging features of Covid 19 pneumonia are present. Other processes such as influenza pneumonia and organizing pneumonia, as can be seen with drug toxicity and connective tissue disease can cause a similar imaging pattern. 3. Mild emphysema with interval development of right upper lobe and right middle lobe spiculated nodules worrisome for bronchogenic carcinoma in correlation with PET CT scan is recommended. 4. 3 cm mass in the posterior segment right lobe liver and correlation with liver mass particles CT is recommended. Electronically Signed: Riccardo Doty MD at 12:29 EST Tel , Service support ,
[2020-08-07 12:10] VITALS: O2SAT 94
[2020-08-07 12:26] VITALS: BP 146/74; PULSE 89; RESP 18; O2SAT 92
--- NOTE | 2020-08-07 12:42 | ED.DEP ---
ED Disposition - Plan for ED Patient: Instructions: Coronavirus Disease 2019 (COVID-19): Overview Prescriptions: Dexamethasone [Decadron] 6 mg PO DAILY 9 Days tab Prescription Printed Referrals: Jethro Goel [Primary Care Provider] -
[2020-08-07 13:08] VITALS: BP 146/74; PULSE 66; RESP 18; O2SAT 93
== END 2020-08-07 13:36 | disposition home or self-care (01) ==
LOC: ED 10:47
PROVIDERS: Emergency Provider Emergency Medicine; PCP Student in an Organized Health Care Education/Training Program
DX: U07.1 COVID-19 (principal); J12.89 Other viral pneumonia; K21.9 Gastro-esophageal reflux disease without esophagitis; J44.0 Chronic obstructive pulmonary disease with (acute) lower respiratory infection; I10 Essential (primary) hypertension
CPT/HCPCS: 71045; 71275; 80053; 84484; 85025; 93005; 94640; 99284; Q9967; A4216

== ENCOUNTER 2020-08-20 15:42 | Inpatient (IN) | payer MEDICARE, MEDICAID, SELFPAY ==
[2020-08-20] VITALS (8 sets, daily range): BP systolic 106–140; BP diastolic 57–94; PULSE 64–84; RESP 17–24; TEMP 36.2–37.2; O2SAT 96–99; BMI 24.5; BMI 23.7; BMI 23.8
--- NOTE | 2020-08-20 15:54 | EKG12_ITS ---
Test Reason : SOB Blood Pressure : / mmHG Vent. Rate : 068 BPM Atrial Rate : 068 BPM P-R Int : 152 ms QRS Dur : 094 ms QT Int : 388 ms P-R-T Axes : 052 -25 046 degrees QTc Int : 412 ms Sinus rhythm with Premature atrial complexes Otherwise normal ECG Confirmed by REBA BARLOW, ENEIDA ([id number]), editor producer FLORENTIN MORLEY ([id number]) on 08/24/2020 11:03:15 AM Referred By: MO Confirmed By:ENEIDA BRITTON MD
--- NOTE | 2020-08-20 15:59 | ED.DCSUM_ITS ---
- ER Visit Summary Date of Service: 08/20/20 Chief Complaint: [Shortness of breath] History of Present Illness: The patient is a 85 F [presents to the emergency department with shortness of breath for the last 2 to 3 weeks. Patient was diagnosed with COVID-19 on July 30. Patient was seen in the emergency department on August 07 for complaint of shortness of breath and had a CT of the chest that showed Covid pneumonia but no evidence of PE. Patient continues to cough and bring up some white phlegm. She complains of exertional dyspnea. She denies chest pain. She denies fevers. Patient has history of COPD as well as hypertension and high cholesterol. Patient with history of anxiety and GERD. Patient normally on 2 L of home O2.] Patient feels weak. Physical Examination: [HEENT-PERRLA, EOMI. Cranial nerves II through XII grossly intact. TMs clear. Mucous membranes moist. No adenopathy. Cardiovascular-regular rate and rhythm without murmur or ectopy Lungs-patient is tachypneic on arrival. Patient has good aeration bilaterally. Faint expiratory wheezes noted bilaterally. No accessory muscle use or retractions. Mild conversational dyspnea. Chest wall stable. No tenderness on palpation of the chest wall. Abdomen-normoactive bowel sounds, soft, nontender, no rebound or rigidity, no peritoneal signs. Extremities-intact ?4, normal range of motion, normal pulses, atraumatic] Test Results: [EKG obtained on arrival shows sinus rhythm with a ventricular rate of 68 bpm with occasional PACs noted. No acute ST segment changes noted. CBC with differential showed a white count of 10.2, hemoglobin 12, hematocrit 37, platelet 302. Chemistries unremarkable. BUN was 18 and creatinine 1.47. Troponin was less than 0.015. BNP was 49. Chest x-ray showed some chronic COPD changes as well as worsening of bilateral pneumonia noted on last x-ray as interpreted by myself and radiology in agreement. From .] Emergency Department Course and Treatment: [IV line established on arrival. Patient placed on a cardiac rehab nurse. Patient was given DuoNeb aerosol. Patient started on Levaquin 750 mg IV and started on Solu-Medrol.] Treatment Plan: [Admit] Disposition: [Admit] Impression: [Dyspnea COPD exacerbation COVID-19 pneumonia Generalized weakness] This note was generated with [employer] dictation software. It may contain incorrect words, spelling, and punctuation that were not noted in review of the chart prior to signing ED Disposition - Plan for ED Patient: Referrals: Jethro Goel [Primary Care Provider] -
[2020-08-20] MEDS: Ipratropium/Albuterol Sulfate 3 ML AMPUL.NEB INHALATION (16:12)
[2020-08-20 16:28] LABS: Absolute Lymphocyte Count 0.87 X10^3/uL (0.83-4.51); Absolute Neutrophil Count 8.4 X10^3/uL (2.0-7.7); Basophil# 0.04 X10^3/uL; Basophil% 0.4 % (0-1); Eosinophil# 0.15 X10^3/uL; Eosinophils% 1.5 % (0-5); Hematocrit 36.9 % (37-47); Lymphocyte # 0.87 X10^3/ul (4.0); Lymphocyte % 8.6 % (19-41); Mean Corp Hgb Conc 32.5 g/dL (32-36); Mean Corpuscular Hgb 30.2 pg (27.0-32.0); Mean Corpuscular Volume 92.9 fL (81-99); Monocyte# 0.74 X10^3/uL; Monocyte% 7.3 % (0-10); NRBC Flagged by Analyzer 0 % (0-5); Neutrophil # 8.35 X10^3/uL (2.7-7.7); Platelet Count 302 K/mm3 (150-450); RBC Distribution Width CV 13.9 % (11.6-14.6); RBC Distribution Width SD 46.5 fl (35.1-43.9); Red Blood Count 3.97 M/mm3 (4.2-5.4); White Blood Count 10.2 K/mm3 (4.4-11.0)
[2020-08-20 16:35] LABS: Anion Gap 6 (5-15); BUN 18 mg/dL (7-18); BUN/Creat Ratio 12.2 RATIO (10-20); Calcium,Total 9.2 mg/dL (8.5-10.1); Chloride 107 mmol/L (98-107); Creatinine, Serum 1.47 mg/dL (0.55-1.02); EST Glomerular Filtration Rate 36 mL/min (>60); Est Glom Filt Rate - Afr Amer 43 mL/min (>60); Estimated Creatinine Clearance 27.21 ml/min; Glucose 125 mg/dL (74-106); Potassium 3.9 mmol/L (3.5-5.1); Sodium Level 138 mmol/L (136-145)
--- NOTE | 2020-08-20 16:35 | RAD_ITS ---
STUDY: X-RAY CHEST REASON FOR EXAM: Female, 85 years old. INCREASING SOB OVER LAST FEW WEEKS, HX OF COPD AND HTN TECHNIQUE: Single AP portable view of the chest. COMPARISON: 08/07/2020. FINDINGS: Hyperexpansion of the lungs. Increasing patchy and nodular peripherally oriented pulmonary opacities of the mid and lower bilateral lungs. These are more prominent than on the prior study. Findings suggest nonspecific multifocal pneumonia. No gross effusions. Normal size heart. Normal mediastinum and rasheed. There is prominence of the pulmonary hilar arteries without peripheral pulmonary vascular congestion, suggesting pulmonary hypertension. Normal visualized aortic arch and descending thoracic aorta. Normal visualized thoracic spine. Normal visualized ribs, clavicles, and shoulders. There is no demonstrated abnormality of the visualized soft tissue structures of the upper abdomen. RAD/Chest 1 View (Portable) IMPRESSION: COPD. Worsening of nonspecific patchy bilateral peripheral linear oriented opacities of the mid and lower lungs. Electronically Signed: Moses Godwin MD at 17:03 EST , Service support ,
[2020-08-20 16:49] LABS: BNP,B-Type NATRIURETIC PEPTIDE 49.2 pg/mL (0-100)
--- NOTE | 2020-08-20 17:18 | PCM.HP.STD ---
Problem List (1) Pneumonia due to COVID-19 virus Status: Acute (2) COPD exacerbation Status: Acute (3) Chronic anemia Status: Chronic (4) CVA (cerebral vascular accident) Status: Chronic Qualifiers: CVA mechanism: unspecified Qualified Code(s): I63.9 - Cerebral infarction, unspecified (5) HTN (hypertension) Status: Chronic Qualifiers: Hypertension type: essential hypertension Qualified Code(s): I10 - Essential (primary) hypertension (6) GERD (gastroesophageal reflux disease) Status: Chronic Qualifiers: Esophagitis presence: esophagitis presence not specified Qualified Code(s): K21.9 - Gastro-esophageal reflux disease without esophagitis (7) Tobacco abuse Status: Resolved (8) HLD (hyperlipidemia) Status: Chronic Qualifiers: Hyperlipidemia type: unspecified Qualified Code(s): E78.5 - Hyperlipidemia, unspecified (9) Anxiety and depression Status: Chronic (10) CKD (chronic kidney disease), stage III Status: Chronic Qualifiers: Chronic kidney disease stage 3 subtype: unspecified whether 3a or 3b Qualified Code(s): N18.30 - Chronic kidney disease, stage 3 unspecified History of Present Illness Date of Admission: 08/20/20 Chief Complaint: Dyspnea, cough, fatigue, malaise. The patient is an 85 y/o F w/ PMHx: GERD, Hx CVA, Chronic anemia, CKD stage III, HTN, HLD, Tobacco use, Anxiety and Depression, Chronic COPD who presents to the [facility] ED on 08/20/20 with history of again progressively worsening dyspnea, continued coughing but non-discolored with no fever or chills with concurrent wheezing prompting ED return noting difficulty caring for herself with her ongoing issues. Patient was recently evaluated on 07/30/2020 as well as 08/07/2020. On 07/30/2020 patient discharged to home with a rapid antigen COVID-19 test positive at that time with stable oxygenation and recommended continued home inhaler treatments. Upon return on 08/07/2020 patient with ongoing complaints of dyspnea, cough, decreased appetite and mild headache at that time but remained on room air with discharge to home at that time on Decadron regimen. Work-up in the ED included T 98.1, heart rate 78, BP 125/80, respiratory rate 24, 97% on room air, CBC with WBC C 10.2, hemoglobin 12, platelets 302 with left shift, BMP with BUN/creatinine 18/1.47, glucose 125, troponin less than 0.015, BNP 49.2, EKG sinus rhythm with PACs with no acute evidence of ischemia, chest x-ray worsening nonspecific patchy bilateral peripheral linear oriented opacities of the mid and lower lungs with chronic COPD changes. Past Medical History Past Medical History (Chronic Problems): Chronic Problems (Last Reviewed 02/23/20 @ 16:50 by Yanely Reyes) Chronic anemia (Chronic) Anxiety and depression (Chronic) CKD (chronic kidney disease), stage III (Chronic) Disorder of bone and cartilage (Chronic) Dysmetabolic syndrome (Chronic) Lichen sclerosus (Chronic) Hypercholesteremia (Chronic) Multiple pulmonary nodules (Chronic) Osteopenia (Chronic) Seborrheic keratoses (Chronic) Obesity (Chronic) Fatigue (Chronic) Diverticula of colon (Chronic) CVA (cerebral vascular accident) (Chronic) Anemia (Chronic) Hypertrophy of nasal turbinates (Chronic) Chronic renal failure, stage 3 (moderate) (Chronic) Urinary, incontinence, stress female (Chronic) Bronchiectasis (Chronic) Anxiety (Chronic) HTN (hypertension) (Chronic) GERD (gastroesophageal reflux disease) (Chronic) HLD (hyperlipidemia) (Chronic) Medical History: Medical History (Last Reviewed 02/23/20 @ 16:50 by Yanely Reyes) Disorder of bone and cartilage (Chronic) M89.9, M94.9 Dysmetabolic syndrome (Chronic) E88.81 Lichen sclerosus (Chronic) L90.0 Hypercholesteremia (Chronic) E78.00 Multiple pulmonary nodules (Chronic) R91.8 Osteopenia (Chronic) M85.80 Seborrheic keratoses (Chronic) L82.1 Vitamin B12 deficiency (Acute) E53.8 Vitamin D deficiency (Acute) E55.9 Obesity (Chronic) E66.9 Fatigue (Chronic) R53.83 Diverticula of colon (Chronic) K57.30 CVA (cerebral vascular accident) (Chronic) I63.9 Anemia (Chronic) D64.9 Hypertrophy of nasal turbinates (Chronic) J34.3 Chronic renal failure, stage 3 (moderate) (Chronic) N18.3 Urinary, incontinence, stress female (Chronic) N39.3 Bronchiectasis (Chronic) J47.9 Anxiety (Chronic) F41.9 HTN (hypertension) (Chronic) I10 GERD (gastroesophageal reflux disease) (Chronic) K21.9 Tobacco abuse (Chronic) Z72.0 Pneumonia (Acute) J18.9 HLD (hyperlipidemia) (Chronic) E78.5 Allergies lisinopril Adverse Reaction (Verified 08/20/20 15:47) Swelling Home Medications: Ambulatory Orders Medication Instructions Recorded Albuterol Inhaler [Ventolin Hfa] 1 - 2 puff INHALATION Q4H PRN PRN 11/28/17 #1 inhaler Fluticasone/Vilanterol [Breo 1 ea IH DAILY 02/11/18 Ellipta 100-25 Mcg INH] Albuterol Aerosols [Ventolin 2.5 mg INHALATION Q4H PRN PRN 03/12/20 Aerosols] Amlodipine [Norvasc] 5 mg PO DAILY #60 tab 03/14/20 Pantoprazole Sodium [Protonix] 40 mg PO DAILY 07/30/20 Senna [Senokot] 1 tab PO PRN PRN 07/30/20 Surgical History: - - Surgery for stress incontinence including a sling procedure, nasal surgery. 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 Review of Systems Constitutional: Reports: Anorexia, Malaise, Weakness, Fatigue. Denies: Chills, Fever, Weight Change HEENT: Denies: Head Aches, Sinus Congestion, Sinus Drainage Cardiovascular: Denies: Chest Pain, Palpitations Respiratory: Reports: Cough, Shortness of Breath, Shortness of breath upon exertion, Wheezing. Denies: Shortness of breath at rest, Sputum production Gastrointestinal: Denies: Abdominal Pain, Nausea, Vomiting Genitourinary: Denies: Dysuria Musculoskeletal: Reports: Joint Pain. Denies: Joint Tenderness Skin: Denies: Rash, Wounds Neurological: Denies: Focal weakness, Numbness, Tingling Psychiatric: Reports: Anxiety, Depression. Denies: Homicidal Ideations, Suicidal Ideations Hematologic/ Lymphatic: Reports: Anemia. Denies: Easy Bruising, Easy Bleeding VTE Information - Inpt Only VTE Present on Admission: No VTE Mechan Device Prophylaxis: SCD's VTE Pharm Prophylaxis ordered?: Yes Patient Problems: Active and Suspected Problems (Last Reviewed 02/23/20 @ 16:50 by Yanely Reyes) COPD exacerbation (Acute) Pneumonia due to COVID-19 virus (Acute) Subjective: Patient seated upright in the bed, fatigued appearing, anxious, flat affect, no acute distress. Objective: Physical Examination: General: awake, alert, oriented x 3 and cooperative, seated upright in the ED bed, fatigued appearing, no acute distress. Skin: normal color, turgor, no icterus, cyanosis except noted occasional staged ecchymoses and suspected picture regions, scabbed, no evidence of any erythema or drainage. HEENT: AT/NC, EOMI, PERRLA, mildly dry MM, no carotid bruits or JVD noted. Lungs: Diminished breath sounds, greater bases, occasional end expiratory wheezing, mildly increased respiratory rate, coughing elicited with requested deep inspiratory effort, no obvious rales or rhonchi. Heart: Regular rate and rhythm; no gallop, rub audible. Abdomen: soft, thin habitus, NTTP, ND, normal BS, no HSM. Extremities: no cyanosis, clubbing, or edema. Neurological: patient awake, alert, oriented as noted; cognitive function intact; pupils equally reactive to light and accomodation; cranial nerves II-XII grossly normal, moving all 4 extremities, no focal deficits, strength moderately to severely global decrease secondary to acute complaints. Psychiatric: affect appears flat, discussed frankly and she does admit to depression but no SI, anxious especially with ongoing complaints and isolation. - Physical Exam Vitals/I&O's: Vital Signs Temp Pulse Resp BP Pulse Ox 98.0 F 70 22 H 109/72 96 08/20/20 16:46 08/20/20 16:46 08/20/20 16:46 08/20/20 16:46 08/20/20 16:46 Oxygen Delivery Method Room Air Weight: 156 lb 4.924 oz Body Mass Index (BMI) 24.5 Laboratory Results 08/20/20 15:50: WBC 10.2, RBC 3.97 L, Hgb 12.0, Hct 36.9 L, MCV 92.9, MCH 30.2, MCHC 32.5, RDW Std Deviation 46.5 H, RDW Coeff of Jung 13.9, Plt Count 302, MPV 11.0, Immature Gran % (Auto) 0.200, Neut % (Auto) 82.0 H, Lymph % (Auto) 8.6 L, [place] % (Auto) 7.3, Eos % (Auto) 1.5, Baso % (Auto) 0.4, Absolute Neuts (auto) 8.4 H, Absolute Lymphs (auto) 0.87, Nucleated RBC % 0 08/20/20 15:50: Sodium 138, Potassium 3.9, Chloride 107, Carbon Dioxide 25.0, Anion Gap 6, BUN 18, Creatinine 1.47 H, Estim Creat Clear Calc 27.21, Est GFR (MDRD) Af Amer 43 L, Est GFR (MDRD) Non-Af 36 L, BUN/Creatinine Ratio 12.2, Glucose 125 H, Calcium 9.2, Troponin I < 0.015 08/20/20 15:50: B-Natriuretic Peptide 49.2 Current Medications Levofloxacin (Levaquin Iv) 750 mg in 150 mls @ 100 mls/hr IV X1 ONE Stop: 08/20/20 18:36 Assessment/Plan All Active Problems (Last Reviewed 02/23/20 @ 16:50 by Yanely Reyes) COPD exacerbation (Acute) Severe anemia (Acute) Pneumonia due to COVID-19 virus (Acute) Lower extremity edema (Acute) Contusion of left foot, initial encounter (Acute) Vitamin B12 deficiency (Acute) Vitamin D deficiency (Acute) Tobacco abuse (Resolved) Pneumonia (Acute) The patient is an 85 y/o F w/ PMHx: GERD, Hx CVA, Chronic anemia, CKD stage III, HTN, HLD, Tobacco use, Anxiety and Depression, Chronic COPD who presents to the [facility] ED on 08/20/20 with history of again progressively worsening dyspnea, continued coughing but non-discolored with no fever or chills with concurrent wheezing prompting ED return noting difficulty caring for herself with her ongoing issues. 1. Acute Dyspnea, Cough secondary to suspected Acute on Chronic COPD Exacerbation complicated by recent Acute Viral Syndrome, COVID-19 with worsening BL Infiltrates: Patient clinically does not improving, ongoing dyspnea complaints, diagnosed on 07/30/2020 with a positive Covid antigen, has remained on room air during that time and completed Decadron therapy, now off quarantine timeline, chest x-ray with chronic COPD changes with worsening nonspecific patchy bilateral peripheral linear oriented opacities in the mid and lower lungs consistent with Covid pneumonia worsening since prior as noted, will admit to MedSurg/Tele, will maintain on oxygen with wean as tolerated to room air, ATC duoneb, PRN albuterol, maintain on IV solumedrol, do suspect worsening appearance of chest x-ray is likely secondary to only Covid however to be cautious will place on Rocephin and azithromycin pending sputum culture, repeat respiratory viral panel and urine antigens, de-escalate off once appropriate, will obtain worsening COVID panel per protocol and request ID involvement given her ongoing issues, HOB, IS parameters, continue supportive care. Patient with recent 08/07/20 CTPA which demonstrated changes consistent with COVID PNA but no acute PE found. Of note 03/12/20 ECHO w/ normal LV size, normal LV systolic function, EF 65%, stage I diastolic dysfunction, PASP 44 mmHg, mild focal AV calcification, mean aortic valve gradient 25 mmHg with mild aortic stenosis. Infectious disease, Dr. Landry consulted, pending. 2. Chronic Kidney Disease Stage III: Admission BUN/Cr 18/1.47, baseline renal function 1.4-1.6, repeat BMP in AM. 3. Chronic normocytic anemia/Fe deficiency anemia/Vitamin B12 deficiency anemia: Admission hemoglobin 12, baseline prior primarily 10-11, following outpatient for Fe transfusions, continue B12. 4. History of CVA: We will continue aspirin, Norvasc, not on statin therapy, defer given age. 5. Hypertension: Continue home regimen including Norvasc, PRN hydralazine. 6. Hyperlipidemia: Not on statin, defer given age. 7. GERD: Continue home Protonix regimen. 8. Former Tobacco Abuse: Encouraged continued cessation. 9. Anxiety and depression: Noted in history, not on regimen, encourage outpatient follow-up. 10. DVT prophylaxis: SCDs, Lovenox. 11. CODE status: Patient GRAY is her daughter and living will is not currently in place. Discussed that she could request information from case management/social work if interested in assistance setting up living will. Discussed CODE status at length including difference between FULL code, DNR-CCA and DNR-CC status. Following discussions about the differences in these status and initially states she is not sure what she wanted but following further discussions agreed to full CODE STATUS. Recommended further discussions with her family especially her daughter who is healthcare power of bankruptcy attorney (Sasha). Advanced Care Planning Face to Face Time: 16 minutes. Inpatient E&M: 70141 Init Hosp L3 Procedures: 01166 Advncd Care Plan 30 Min
--- NOTE | 2020-08-20 17:19 | NURSING ---
DR GOODWIN FOR DR HECK
[2020-08-20] MEDS: levoFLOXacin IV 750 MG/150 ML BAG 100 MG IV (17:30)
[2020-08-20] MEDS: MethylPREDNISolone 125 MG/2 ML Vial 60 MG IV (17:31)
--- NOTE | 2020-08-20 17:40 | NURSING ---
Pt states that she never knew she was dx [place]. When speaking to daughter Zulema, daughter states that pt absolutely knew this, but has been forgetful.
[2020-08-20 18:59] LABS: Magnesium 2.1 mg/dL (1.6-2.6)
[2020-08-20 19:12] LABS: Procalcitonin 0.08 ng/mL (0.00-0.09)
[2020-08-20] MEDS: Acetaminophen 325 MG Tablet 650 MG PO (20:22)
--- NOTE | 2020-08-20 20:39 | NURSING ---
assisted pt to call daughter
[2020-08-20] MEDS: 0.9% Saline Lock 10 ML Syringe IV (21:39)
[2020-08-20] MEDS: Enoxaparin 30 MG/0.3 ML Syringe SC (21:39)
[2020-08-20] MEDS: INHALER, ASSIST DEVICES 1 EACH SPACER INHALATION (21:40)
[2020-08-21] VITALS (12 sets, daily range): BP systolic 110–136; BP diastolic 60–85; PULSE 56–81; RESP 14–18; TEMP 36.3–36.8; O2SAT 98–100
[2020-08-21] MEDS: BENZOCAINE/MENTHOL 1 LOZENGE MUCOUS MEM (05:21)
[2020-08-21] MEDS: INHALER, ASSIST DEVICES 1 EACH SPACER INHALATION ×5 (05:22→22:21)
[2020-08-21] MEDS: 0.9% Saline Lock 10 ML Syringe IV ×4 (05:22→22:21)
[2020-08-21 07:28] LABS: Absolute Lymphocyte Count 0.35 X10^3/uL (0.83-4.51); Absolute Neutrophil Count 5.5 X10^3/uL (2.0-7.7); Eosinophil# 0.01 X10^3/uL; Eosinophils% 0.2 % (0-5); Hematocrit 34.8 % (37-47); Hemoglobin 10.9 g/dL (12.0-15.0); Lymphocyte # 0.35 X10^3/ul (4.0); Lymphocyte % 5.9 % (19-41); Mean Corp Hgb Conc 31.3 g/dL (32-36); Mean Corpuscular Hgb 29.1 pg (27.0-32.0); Mean Platelet Vol. 11.9 fl (6.2-12.0); Monocyte# 0.07 X10^3/uL; Monocyte% 1.2 % (0-10); NRBC Flagged by Analyzer 0 % (0-5); Neutrophil # 5.48 X10^3/uL (2.7-7.7); Neutrophil % 92.4 % (47-70); POSITIVE DIFFERENTIAL YES; Platelet Count 261 K/mm3 (150-450); RBC Distribution Width CV 13.7 % (11.6-14.6); RBC Distribution Width SD 46.3 fl (35.1-43.9); Red Blood Count 3.74 M/mm3 (4.2-5.4); White Blood Count 5.9 K/mm3 (4.4-11.0)
[2020-08-21 07:29] LABS: Differential Indicated SCAN CRITERIA MET
[2020-08-21] MEDS: Pantoprazole Sodium 40 MG Tablet PO (07:53)
[2020-08-21] MEDS: Acetaminophen 325 MG Tablet 650 MG PO ×2 (07:53→22:21)
[2020-08-21] MEDS: amLODIPine 5 MG Tablet PO (07:53)
[2020-08-21 07:54] LABS: ALB/GLOB Ratio 0.7 RATIO (0.9-2.4); AST(SGOT) 18 U/L (15-37); Alanine Aminotransfer ALT/SGPT 21 U/L (13-56); Albumin, Serum 2.9 g/dL (3.2-5.0); Alkaline Phosphatase 109 U/L (45-117); Anion Gap 8 (5-15); BUN 18 mg/dL (7-18); BUN/Creat Ratio 12.3 RATIO (10-20); Calcium,Total 8.9 mg/dL (8.5-10.1); Chloride 105 mmol/L (98-107); Creatinine, Serum 1.46 mg/dL (0.55-1.02); EST Glomerular Filtration Rate 36 mL/min (>60); Est Glom Filt Rate - Afr Amer 44 mL/min (>60); Ferritin 74 ng/mL (8-252); Globulin 4.3 g/dL (2.2-4.2); Glucose 177 mg/dL (74-106); Protein, Total 7.2 g/dL (6.4-8.2); Sodium Level 137 mmol/L (136-145)
[2020-08-21 07:57] LABS: Procalcitonin 0.06 ng/mL (0.00-0.09)
[2020-08-21 08:36] LABS: D-Dimer Quantitative (DVT/PE) 1.55 FEU/ug/m (0.27-0.49)
--- NOTE | 2020-08-21 10:10 | PCM.PROGNOTE ---
<Fany Feliz PARENT PARTNER - Last Filed: 08/21/20 10:21> Patient Problems: Active and Suspected Problems (Last Reviewed 02/23/20 @ 16:50 by Yanely Reyes) COPD exacerbation (Acute) Pneumonia due to COVID-19 virus (Acute) Subjective: Patient seen and examined. Continues to feel short of breath. Denies fever, chills. Complains of general malaise. - Physical Exam Vitals/I&O's: Vital Signs Temp Pulse Resp BP Pulse Ox 97.9 F 60 16 136/68 H 98 08/21/20 06:14 08/21/20 07:14 08/21/20 06:14 08/21/20 06:14 08/21/20 07:53 Oxygen Flow Rate (L/min) 2 Oxygen Delivery Method Nasal Cannula Weight: 150 lb 9.6 oz Body Mass Index (BMI) 23.7 Intake and Output for Last 24 Hours 08/19/20 08/20/20 08/21/20 23:59 23:59 23:59 Intake Total 300 / 300 Output Total Balance 299 / 299 - General: Alert, Oriented x3, Cooperative HEENT: Atraumatic, PERRLA, EOMI, Normocephalic Neck: Supple, No JVD, Negative Carotid Bruits Lungs: Clear to auscultation, Diminished Cardiovascular: Regular rate, No murmurs Abdomen: Bowel Sounds Present, Soft, Non Tender, Non-Distended Extremities: No clubbing, No cyanosis, No edema Skin: No rashes, No breakdown Musculoskeletal: No Tenderness to Palpation of Joints or Extremities, Cachexia Neurological: Cranial nerves II-XII grossly intact, Neuro grossly intact Psych/Mental Status: Flat Affect Microbiology Past 72 Hours 08/20/20 20:26 Mucosa - Nasopharyngeal Respiratory Panel (PCR) - Final 08/20/20 22:00 Urine, Clean Catch Legionella Antigen - Final 08/20/20 22:00 Urine, Clean Catch Streptococcus pneumoniae Antigen (M - Final Laboratory Results 08/20/20 15:50: WBC 10.2, RBC 3.97 L, Hgb 12.0, Hct 36.9 L, MCV 92.9, MCH 30.2, MCHC 32.5, RDW Std Deviation 46.5 H, RDW Coeff of Jung 13.9, Plt Count 302, MPV 11.0, Immature Gran % (Auto) 0.200, Neut % (Auto) 82.0 H, Lymph % (Auto) 8.6 L, [place] % (Auto) 7.3, Eos % (Auto) 1.5, Baso % (Auto) 0.4, Absolute Neuts (auto) 8.4 H, Absolute Lymphs (auto) 0.87, Nucleated RBC % 0 08/20/20 15:50: Sodium 138, Potassium 3.9, Chloride 107, Carbon Dioxide 25.0, Anion Gap 6, BUN 18, Creatinine 1.47 H, Estim Creat Clear Calc 27.21, Est GFR (MDRD) Af Amer 43 L, Est GFR (MDRD) Non-Af 36 L, BUN/Creatinine Ratio 12.2, Glucose 125 H, Calcium 9.2, Troponin I < 0.015 08/20/20 15:50: B-Natriuretic Peptide 49.2 08/20/20 15:50: Magnesium 2.1 08/20/20 15:50: Procalcitonin 0.08 08/21/20 06:16: WBC 5.9, RBC 3.74 L, Hgb 10.9 L, Hct 34.8 L, MCV 93.0, MCH 29.1, MCHC 31.3 L, RDW Std Deviation 46.3 H, RDW Coeff of Jung 13.7, Plt Count 261, MPV 11.9, Immature Gran % (Auto) 0.300, Neut % (Auto) 92.4 H, Lymph % (Auto) 5.9 L, [place] % (Auto) 1.2, Eos % (Auto) 0.2, Baso % (Auto) 0.0, Absolute Neuts (auto) 5.5, Absolute Lymphs (auto) 0.35 L, Nucleated RBC % 0 08/21/20 06:16: Sodium 137, Potassium 4.0, Chloride 105, Carbon Dioxide 24.0, Anion Gap 8, BUN 18, Creatinine 1.46 H, Estim Creat Clear Calc 27.40, Est GFR (MDRD) Af Amer 44 L, Est GFR (MDRD) Non-Af 36 L, BUN/Creatinine Ratio 12.3, Glucose 177 H, Calcium 8.9, Ferritin 74, Total Bilirubin 0.30, AST 18, ALT 21, Alkaline Phosphatase 109, Troponin I < 0.015, C-React Prot Ext Range 16.30 H, Total Protein 7.2, Albumin 2.9 L, Globulin 4.3 H, Albumin/Globulin Ratio 0.7 L 08/21/20 06:16: D-Dimer Quant (PE/DVT) 1.55 H* 08/21/20 06:16: Procalcitonin 0.06 Current Medications Acetaminophen (Acetaminophen 325 Mg Tablet) 650 mg PO Q6H PRN PRN PRN Reason: Pain Score 1-10/Temp > 100.7 F Last Admin: 08/21/20 07:53 Dose: 650 mg Documented by: Al Hydroxide/Mg Hydroxide (Mag Hydrox/Al Hydrox/Simeth 30 Ml Udc) 30 ml PO Q6H PRN PRN PRN Reason: Gastric Burning Albuterol Sulfate (Albuterol Sulfate 8gm 60 Dose Inhaler (Floor Use-With Spacer)) 1 puff INHALATION Q4HWA [facility] Last Admin: 08/21/20 05:21 Dose: 1 puff Documented by: Albuterol Sulfate (Albuterol Sulfate 8gm 60 Dose Inhaler (Floor Use-With Spacer)) 1 puff INHALATION Q4H PRN PRN PRN Reason: Dyspnea, Wheezing Amlodipine Besylate (Amlodipine 5 Mg Tablet) 5 mg PO DAILY [facility] Last Admin: 08/21/20 07:53 Dose: 5 mg Documented by: Enoxaparin Sodium (Enoxaparin 30 Mg/0.3 Ml Syringe) 30 mg SC BID [facility] Last Admin: 08/20/20 21:39 Dose: 30 mg Documented by: Guaifenesin (Guaifenesin 10 Ml Udc (200mg/10ml)) 20 ml PO Q4H PRN PRN PRN Reason: COUGH Hydralazine HCl (Hydralazine 20 Mg/Ml Vial) 10 mg IV Q4H PRN PRN PRN Reason: SBP > 160 Sodium Chloride () 250 mls @ 15 mls/hr IV .[id number] PRN PRN Reason: Additional IVPB Infusion Ceftriaxone Sodium 2 gm/ (Sodium Chloride) 50 mls @ 100 mls/hr IV Q24 ENEDELIA Azithromycin 500 mg/ Dextrose 255 mls @ 250 mls/hr IV Q24 [facility] Sodium Chloride () 250 mls @ 15 mls/hr IV .[id number] PRN PRN Reason: Saline Flush Sodium Chloride () 250 mls @ 15 mls/hr IV .[id number] PRN PRN Reason: Additional IVPB Infusion Magnesium Hydroxide (Magnesium Hydroxide 30 Ml Udc) 30 ml PO DAILY PRN PRN PRN Reason: Constipation Melatonin (Melatonin 3 Mg Tablet) 3 mg PO QHS PRN PRN PRN Reason: INSOMNIA Methylprednisolone (Methylprednisolone 40 Mg/Ml Vial) 40 mg IV Q8 [facility] Last Admin: 08/21/20 05:22 Dose: 40 mg Documented by: Miscellaneous Information (Inhaler, Assist Devices 1 Each Spacer) [facility] Last Admin: 08/21/20 05:22 Dose: 1 each Documented by: Nitroglycerin (Nitroglycerin (Inpatient Use) 0.4 Mg Tab.Subl) 0.4 mg SUBLINGUAL Q5M PRN PRN Reason: CARDIAC/CHEST PAIN Ondansetron HCl (Ondansetron 4 Mg/2 Ml Vial) 4 mg IV Q8H PRN PRN PRN Reason: NAUSEA/VOMITING Pantoprazole Sodium (Pantoprazole Sodium 40 Mg Tablet) 40 mg PO DAILY [facility] Last Admin: 08/21/20 07:53 Dose: 40 mg Documented by: Prochlorperazine Edisylate (Prochlorperazine 10 Mg/2 Ml Vial) 5 mg IV Q4H PRN PRN PRN Reason: Breakthrough nausea/vomiting Psyllium Hydrophilic Mucilloid (Psyllium 1 Packet) 1 packet PO DAILY PRN PRN PRN Reason: Constipation Senna (Senna Tablet) 1 tablet PO DAILY PRN PRN PRN Reason: Constipation Sodium Chloride (0.9% Saline Lock 10 Ml Syringe) 10 - 40 ml IV UD PRN PRN Reason: SALINE FLUSH Last Admin: 08/21/20 05:22 Dose: 10 ml Documented by: Throat Lozenges (Benzocaine/Menthol 1 Lozenge) 1 lozenge MUCOUS MEM Q2H PRN PRN PRN Reason: SORE THROAT Last Admin: 08/21/20 05:21 Dose: 1 lozenge Documented by: Medical Necessity - Tobacco Use Smoking Status: Former smoker Tobacco Use: Non-smoker Assessment/Plan All Active Problems (Last Reviewed 02/23/20 @ 16:50 by Yanely Reyes) COPD exacerbation (Acute) Severe anemia (Acute) Pneumonia due to COVID-19 virus (Acute) Lower extremity edema (Acute) Contusion of left foot, initial encounter (Acute) Vitamin B12 deficiency (Acute) Vitamin D deficiency (Acute) Tobacco abuse (Resolved) Pneumonia (Acute) 1. Acute on chronic COPD exacerbation, recent COVID-19 with possible post viral pneumonia-chest x-ray with worsening patchy bilateral opacities in the mid and lower lungs. Continue IV azithromycin and IV Rocephin empirically. Sputum culture pending. Respiratory panel negative. ID consulted. Recent CTA 08/07/2020 - for PE. IV Solu-Medrol. Albuterol and DuoNeb aerosols. Patient has not been documented to be hypoxic however she is on 1 L nasal cannula. Wean as tolerated. PT/OT. 2. Chronic kidney disease stage III-stable, trend BMP. 3. Chronic normocytic anemia/iron deficiency anemia/vitamin B12 deficiency anemia-stable, trend CBC. 4. History of CVA-continue aspirin. 5. Hypertension-stable, continue amlodipine. 6. Hyperlipidemia-not on statin. 7. GERD-continue PPI. 8. Former tobacco use-encouraged cessation. 9. Anxiety/depression-not on regimen. DVT prophylaxis-Lovenox This patient was seen by SEAN Oliveira under the supervision of Dr. Prasad. <Parker Prasad - Last Filed: 08/21/20 11:22> Objective: Patient shortness of breath is much improved. Has mild cough with daily sputum. No fever or chills. Patient has intermittent shortness of breath since July 24. She was diagnosed COVID-19 on July 31. At that time CT angiogram of chest was negative for PE. Denies chest tightness or chest pain. Physical exam General: Alert, Oriented x3, Cooperative HEENT: Atraumatic, PERRLA, EOMI, Normocephalic Oral: No Gingival or Mucosal Lesions/ Ulcerations Neck: Supple, No JVD, Negative Carotid Bruits Lungs: Air entry diminished in bilateral lung bases. Mild occasional expiratory rhonchi. Cardiovascular: Regular rate, Regular Rhythm, Normal S1, Normal S2, No murmurs Abdomen: Bowel Sounds Present, Soft, Non Tender, Non-Distended : No renal angle tenderness. No suprapubic tenderness. Extremities: No edema, Capillary Refill Less than 3 Seconds Skin: No rashes, No breakdown Musculoskeletal: No Tenderness to Palpation of Joints or Extremities Neurological: Cranial nerves II-XII grossly intact, Deep Tendon Reflexes 2+/4 and Symmetrical, Neuro grossly intact Psych/Mental Status: Normal Affect, Appropriate. - Physical Exam Vitals/I&O's: Vital Signs Temp Pulse Resp BP Pulse Ox 97.9 F 60 16 136/68 H 98 08/21/20 06:14 08/21/20 07:14 08/21/20 06:14 08/21/20 06:14 08/21/20 07:53 Oxygen Flow Rate (L/min) 2 Oxygen Delivery Method Nasal Cannula Weight: 150 lb 9.6 oz Body Mass Index (BMI) 23.7 Intake and Output for Last 24 Hours 08/19/20 08/20/20 08/21/20 23:59 23:59 23:59 Intake Total 300 / 300 Output Total Balance 299 / 299 -1 Microbiology Past 72 Hours 08/20/20 20:26 Mucosa - Nasopharyngeal Respiratory Panel (PCR) - Final 08/20/20 22:00 Urine, Clean Catch Legionella Antigen - Final 08/20/20 22:00 Urine, Clean Catch Streptococcus pneumoniae Antigen (M - Final Laboratory Results 08/20/20 15:50: WBC 10.2, RBC 3.97 L, Hgb 12.0, Hct 36.9 L, MCV 92.9, MCH 30.2, MCHC 32.5, RDW Std Deviation 46.5 H, RDW Coeff of Jung 13.9, Plt Count 302, MPV 11.0, Immature Gran % (Auto) 0.200, Neut % (Auto) 82.0 H, Lymph % (Auto) 8.6 L, [place] % (Auto) 7.3, Eos % (Auto) 1.5, Baso % (Auto) 0.4, Absolute Neuts (auto) 8.4 H, Absolute Lymphs (auto) 0.87, Nucleated RBC % 0 08/20/20 15:50: Sodium 138, Potassium 3.9, Chloride 107, Carbon Dioxide 25.0, Anion Gap 6, BUN 18, Creatinine 1.47 H, Estim Creat Clear Calc 27.21, Est GFR (MDRD) Af Amer 43 L, Est GFR (MDRD) Non-Af 36 L, BUN/Creatinine Ratio 12.2, Glucose 125 H, Calcium 9.2, Troponin I < 0.015 08/20/20 15:50: B-Natriuretic Peptide 49.2 08/20/20 15:50: Magnesium 2.1 08/20/20 15:50: Procalcitonin 0.08 08/21/20 06:16: WBC 5.9, RBC 3.74 L, Hgb 10.9 L, Hct 34.8 L, MCV 93.0, MCH 29.1, MCHC 31.3 L, RDW Std Deviation 46.3 H, RDW Coeff of Jung 13.7, Plt Count 261, MPV 11.9, Immature Gran % (Auto) 0.300, Neut % (Auto) 92.4 H, Lymph % (Auto) 5.9 L, [place] % (Auto) 1.2, Eos % (Auto) 0.2, Baso % (Auto) 0.0, Absolute Neuts (auto) 5.5, Absolute Lymphs (auto) 0.35 L, Nucleated RBC % 0 08/21/20 06:16: Sodium 137, Potassium 4.0, Chloride 105, Carbon Dioxide 24.0, Anion Gap 8, BUN 18, Creatinine 1.46 H, Estim Creat Clear Calc 27.40, Est GFR (MDRD) Af Amer 44 L, Est GFR (MDRD) Non-Af 36 L, BUN/Creatinine Ratio 12.3, Glucose 177 H, Calcium 8.9, Ferritin 74, Total Bilirubin 0.30, AST 18, ALT 21, Alkaline Phosphatase 109, Troponin I < 0.015, C-React Prot Ext Range 16.30 H, Total Protein 7.2, Albumin 2.9 L, Globulin 4.3 H, Albumin/Globulin Ratio 0.7 L 08/21/20 06:16: D-Dimer Quant (PE/DVT) 1.55 H* 08/21/20 06:16: Procalcitonin 0.06 Current Medications Acetaminophen (Acetaminophen 325 Mg Tablet) 650 mg PO Q6H PRN PRN PRN Reason: Pain Score 1-10/Temp > 100.7 F Last Admin: 08/21/20 07:53 Dose: 650 mg Documented by: Al Hydroxide/Mg Hydroxide (Mag Hydrox/Al Hydrox/Simeth 30 Ml Udc) 30 ml PO Q6H PRN PRN PRN Reason: Gastric Burning Albuterol Sulfate (Albuterol Sulfate 8gm 60 Dose Inhaler (Floor Use-With Spacer)) 1 puff INHALATION Q4HWA [facility] Last Admin: 08/21/20 10:37 Dose: 1 puff Documented by: Albuterol Sulfate (Albuterol Sulfate 8gm 60 Dose Inhaler (Floor Use-With Spacer)) 1 puff INHALATION Q4H PRN PRN PRN Reason: Dyspnea, Wheezing Amlodipine Besylate (Amlodipine 5 Mg Tablet) 5 mg PO DAILY [facility] Last Admin: 08/21/20 07:53 Dose: 5 mg Documented by: Enoxaparin Sodium (Enoxaparin 30 Mg/0.3 Ml Syringe) 30 mg SC BID [facility] Last Admin: 08/21/20 10:37 Dose: 30 mg Documented by: Guaifenesin (Guaifenesin 10 Ml Udc (200mg/10ml)) 20 ml PO Q4H PRN PRN PRN Reason: COUGH Hydralazine HCl (Hydralazine 20 Mg/Ml Vial) 10 mg IV Q4H PRN PRN PRN Reason: SBP > 160 Sodium Chloride () 250 mls @ 15 mls/hr IV .[id number] PRN PRN Reason: Additional IVPB Infusion Ceftriaxone Sodium 2 gm/ (Sodium Chloride) 50 mls @ 100 mls/hr IV Q24 [facility] Last Admin: 08/21/20 10:29 Dose: 100 mls/hr Documented by: Azithromycin 500 mg/ Dextrose 255 mls @ 250 mls/hr IV Q24 [facility] Sodium Chloride () 250 mls @ 15 mls/hr IV .[id number] PRN PRN Reason: Saline Flush Sodium Chloride () 250 mls @ 15 mls/hr IV .[id number] PRN PRN Reason: Additional IVPB Infusion Magnesium Hydroxide (Magnesium Hydroxide 30 Ml Udc) 30 ml PO DAILY PRN PRN PRN Reason: Constipation Melatonin (Melatonin 3 Mg Tablet) 3 mg PO QHS PRN PRN PRN Reason: INSOMNIA Methylprednisolone (Methylprednisolone 40 Mg/Ml Vial) 40 mg IV Q8 [facility] Last Admin: 08/21/20 05:22 Dose: 40 mg Documented by: Miscellaneous Information (Inhaler, Assist Devices 1 Each Spacer) 1 each INHALATION Q4HWA [facility] Last Admin: 08/21/20 10:36 Dose: 1 each Documented by: Nitroglycerin (Nitroglycerin (Inpatient Use) 0.4 Mg Tab.Subl) 0.4 mg SUBLINGUAL Q5M PRN PRN Reason: CARDIAC/CHEST PAIN Ondansetron HCl (Ondansetron 4 Mg/2 Ml Vial) 4 mg IV Q8H PRN PRN PRN Reason: NAUSEA/VOMITING Pantoprazole Sodium (Pantoprazole Sodium 40 Mg Tablet) 40 mg PO DAILY [facility] Last Admin: 08/21/20 07:53 Dose: 40 mg Documented by: Prochlorperazine Edisylate (Prochlorperazine 10 Mg/2 Ml Vial) 5 mg IV Q4H PRN PRN PRN Reason: Breakthrough nausea/vomiting Psyllium Hydrophilic Mucilloid (Psyllium 1 Packet) 1 packet PO DAILY PRN PRN PRN Reason: Constipation Senna (Senna Tablet) 1 tablet PO DAILY PRN PRN PRN Reason: Constipation Sodium Chloride (0.9% Saline Lock 10 Ml Syringe) 10 - 40 ml IV UD PRN PRN Reason: SALINE FLUSH Last Admin: 08/21/20 10:29 Dose: 10 ml Documented by: Throat Lozenges (Benzocaine/Menthol 1 Lozenge) 1 lozenge MUCOUS MEM Q2H PRN PRN PRN Reason: SORE THROAT Last Admin: 08/21/20 05:21 Dose: 1 lozenge Documented by: Assessment/Plan This patient was seen in conjunction with PARENT PARTNER, Fany. I have independently interviewed and examined the patient and reviewed pertinent history, examination findings, laboratory and plan of management. I have reviewed the note and agree with the documented findings with the few additional points. In brief, patient is 85-year-old nice lady admitted with shortness of breath with cough and sputum consistent with acute COPD exacerbation with post COVID-19 viral pneumonia. It seems patient has symptoms since 07/24/2020 with shortness of breath and was diagnosed, SARS-CoV-2 rapid antigen positive on 07/30. CT angiogram at that time was negative for PE. D-dimer is elevated 1.55, pro calcitonin normal CRP elevated. Patient on IV Solu-Medrol Rocephin and Zithromax. ID has been consulted. Patient has CKD stage III with estimated creatinine is about 27 mL/min. With increased risk of thromboembolism in Covid patient, CT angiogram chest ordered with IV fluid normal saline to prevent ALVERTO. Patient has other comorbidities including CVA, chronic iron deficiency anemia/anemia of chronic disease, hypertension, dyslipidemia and GERD. Patient is former tobacco user and is diagnosed COPD. Her pulmonary visit with Dr. Johnson was canceled in December 2018. No PFT in our system. I have discussed my assessment with PARENT PARTNER, Fany and orders have been reviewed. Clinical Impression(s) from Imaging Studies Chest X-Ray 08/20/20 16:35 IMPRESSION: COPD. Worsening of nonspecific patchy bilateral peripheral linear oriented opacities of the mid and lower lungs. Inpatient E&M: [id number] Subs Hosp L2
[2020-08-21] MEDS: Enoxaparin 30 MG/0.3 ML Syringe SC ×2 (10:37→22:22)
--- NOTE | 2020-08-21 11:33 | CT_ITS ---
STUDY: CTA CHEST REASON FOR EXAM: Female, 85 years old. PNEUMONIA D/T COVID RADIATION DOSAGE (If Supplied By Facility): CTDIvol = ( 9.66 ) mGy, DLP = ( 344.07 ) mGycm TECHNIQUE: The examination was performed with the intravenous administration of 100 mL of ISOVUE-370. Post-processing of the angiographic images was performed, with multiplanar reformation and MIP (maximum intensity projection) reconstruction. Individualized dose optimization techniques were used for this CT. COMPARISON: CTA chest 08/07/2020. FINDINGS: Normal enhancement of the main pulmonary artery and right and left pulmonary arteries. Less than optimal contrast enhancement of the bilateral peripheral pulmonary arteries. No suspicious pulmonary embolism. Normal thoracic aorta and visualized great vessels. There is no demonstrated aortic dissection. Normal heart and pericardium. Normal mediastinum. Normal hilar regions. Normal visualized trachea and bronchi. Mild pulmonary hyperinflation. Small subpleural peripheral patchy infiltrates with minimal interlobular septal thickening in both lungs. Normal pleura. Normal chest wall structures. Normal osseous structures. Large gastric hernia in the posterior mediastinum. Small hyperdense cyst in the right posterior renal parenchyma and small hypodense cortical cyst in the right kidney. No stones or hydronephrosis. CT/CTA Chest W/WO Contrast IMPRESSION: 1. Less than optimal contrast enhancement of the bilateral peripheral pulmonary arteries. No suspicious pulmonary thromboemboli. 2. No CTA evidence of thoracic aortic aneurysm or dissection. 3. Small subpleural peripheral patchy infiltrates with minimal interlobular septal thickening in both lungs. The remaining small but have increased in number. They are nonspecific but viral pneumonia including Covid-19 cannot be excluded 4. Large gastric hernia. 5. Small hyperdense cyst and small hypodense cortical cyst in the right kidney. Electronically Signed: Serg Marie MD at 13:01 EST , Service support ,
[2020-08-21] MEDS: 0.9% Normal Saline 1,000 ML 60 ML IV (14:47)
[2020-08-21] MEDS: MELATONIN 3 MG TABLET PO (22:21)
[2020-08-22] VITALS (11 sets, daily range): BP systolic 119–128; BP diastolic 56–100; PULSE 51–91; RESP 18; TEMP 36.6–37; O2SAT 95–100
[2020-08-22] MEDS: INHALER, ASSIST DEVICES 1 EACH SPACER INHALATION ×5 (05:17→20:04)
[2020-08-22] MEDS: 0.9% Saline Lock 10 ML Syringe IV ×3 (05:17→20:04)
[2020-08-22] MEDS: Acetaminophen 325 MG Tablet 650 MG PO (07:42)
[2020-08-22] MEDS: 0.9% Normal Saline 1,000 ML 60 ML IV (07:46)
[2020-08-22] MEDS: Pantoprazole Sodium 40 MG Tablet PO (10:06)
[2020-08-22] MEDS: amLODIPine 5 MG Tablet PO (10:06)
[2020-08-22] MEDS: Enoxaparin 30 MG/0.3 ML Syringe SC ×2 (10:06→20:04)
--- NOTE | 2020-08-22 10:15 | CASEMGMT ---
RN JANICE Face to Face with patient for initial transition planning/care coordination assessment. RN JANICE introduced self and role at [facility]. Patient sitting, alert and oriented. Patient willing to participate in assessment and is able to answer all questions appropriately. Care providers, pharmacy, and demographics verified. Patient wishes to discharge home, denies need for home health at this time. Patient states she has no further needs or concerns at this time. CM to follow for discharge planning needs that may arise. PCP: Amando Specialists: Kelechi clinical data associate [facility] Prescription Benefit: yes Living Will/HPOA: yes, daughter Sasha Grant LNOK: daughters Living Arrangements: Patient lives alone in a first floor apartment. Patient states she is independent at home. Transportation: [facility] or daughter DME/HHC: Patient states she has shower chair, grab bars, and nebulizer at home. Disposition Plan: Patient to discharge home with family support and follow-up plans in place. Suzy RIVERO, RN, CM
--- NOTE | 2020-08-22 14:28 | CASEMGMT ---
Social Work Note JAN received call from pt's daughter Zulema. Zulema states she has some concerns, states pt hasn't been taking her medications. Zulema states her father was in [facility] under Medicaid and was told [facility] would have some Medicaid beds on hold and asked if this could be discussed with pt. JAN informed Zulema that GILES CAMACHO met with pt, pt stated she was going home, pt refused SNF. SW spoke with Zulema regarding insurance cover for SNF and [facility]. SW informed Zulema that this worker can speak with pt regarding concerns and provide community resources for pt. Zulema states pt will probably refuse. SW completed Palliative Care tool due to dx of COPD exacerbation. Pt scored 3, observe, reconsider if condition deteriorates. SW in to speak with pt. SW introduced self and role at [facility]. Pt is alert and orientated. SW informed pt that family had called in and had concerns with pt taking medications properly at home. Pt states how would they know, I take my medications. Pt denied not taking medications to this worker. JAN spoke with pt about community resources and how perhaps having someone check in with pt (RN through [facility] once a week) may be beneficial. Pt states that's what my children are for. SW educated pt on additional community resources including [facility] and [facility]. SW asked pt if she has considered SNF or [facility] and pt denied. Pt denied wanting to discharge to SNF or [facility]. JAN provided pt with community resources including Palliative Care, [facility] list, [facility] Home, and Private duty aides. Pt denied additional needs or concerns at this time. JAN informed pt that [facility]ACH[facility] And JAN will follow with pt and determine any home going needs. Pt states understanding. Plan: Home Suzy Bravo DIPLOMATIC OFFICER, BOOK REPAIRER
--- NOTE | 2020-08-22 15:42 | CON.PCM_ITS ---
Problem List (1) COPD exacerbation Status: Acute Reason for Consult: dyspnea Consulted by: Dr. Barboza History of Present Illness: The patient is a 85 year old F with copd, dx with covid 07/30, reports several weeks of mild cough, dyspnea. Sx worsened, came to ED. No aches, no fever, no sputum, no n/v/d. Started on azithro/ceftriaxone, feeling better today. Full ROS performed and neg except as noted above. - Medical History Past Medical History (Chronic Problems): Chronic Problems (Last Reviewed 02/23/20 @ 16:50 by Yanely Reyes) Chronic anemia (Chronic) Anxiety and depression (Chronic) CKD (chronic kidney disease), stage III (Chronic) Disorder of bone and cartilage (Chronic) Dysmetabolic syndrome (Chronic) Lichen sclerosus (Chronic) Hypercholesteremia (Chronic) Multiple pulmonary nodules (Chronic) Osteopenia (Chronic) Seborrheic keratoses (Chronic) Obesity (Chronic) Fatigue (Chronic) Diverticula of colon (Chronic) CVA (cerebral vascular accident) (Chronic) Anemia (Chronic) Hypertrophy of nasal turbinates (Chronic) Chronic renal failure, stage 3 (moderate) (Chronic) Urinary, incontinence, stress female (Chronic) Bronchiectasis (Chronic) Anxiety (Chronic) HTN (hypertension) (Chronic) GERD (gastroesophageal reflux disease) (Chronic) HLD (hyperlipidemia) (Chronic) Allergies/Adverse Reactions: Allergies lisinopril Adverse Reaction (Verified 08/20/20 15:47) Swelling Home Medications: Ambulatory Orders Medication Instructions Recorded Albuterol Inhaler [Ventolin Hfa] 1 - 2 puff INHALATION Q4H PRN PRN 11/28/17 #1 inhaler Fluticasone/Vilanterol [Breo 1 ea IH DAILY 02/11/18 Ellipta 100-25 Mcg INH] Albuterol Aerosols [Ventolin 2.5 mg INHALATION Q4H PRN PRN 03/12/20 Aerosols] Amlodipine [Norvasc] 5 mg PO DAILY #60 tab 03/14/20 Pantoprazole Sodium [Protonix] 40 mg PO DAILY 07/30/20 Senna [Senokot] 1 tab PO PRN PRN 07/30/20 - Social History SMOKING STATUS:: Former smoker Vital Signs Temp Pulse Resp BP Pulse Ox 98.5 F 72 18 128/74 H 95 08/22/20 14:29 08/22/20 14:29 08/22/20 14:29 08/22/20 14:29 08/22/20 14:29 Oxygen Flow Rate (L/min) 1 Oxygen Delivery Method Room Air Weight: 67.8 kg Body Mass Index (BMI) 23.7 Microbiology Past 72 Hours 08/20/20 20:26 Respiratory Panel (PCR) - Final Mucosa - Nasopharyngeal 08/20/20 22:00 Legionella Antigen - Final Urine, Clean Catch Streptococcus pneumoniae Antigen (M - Final - Other Studies Radiology: [] reviewed Other Studies: [] Route of nutrition/ use of supplements: [] Nutritional Intake: [] IV Site: [] Tariq Catheter: [] - Physical Exam General: Alert, Oriented x3, Cooperative, No apparent distress HEENT: Atraumatic, PERRLA, EOMI Neck: Supple, No Nodes Lungs: Clear to auscultation, Wheezes - mild Cardiovascular: Regular rate, Regular Rhythm Abdomen: Soft, Non Tender, Non-Distended Extremities: No edema Skin: No rashes IV Site: Peripheral Musculoskeletal: No Tenderness to Palpation of Joints or Extremities Neurological: Cranial nerves II-XII grossly intact - Assessment/Plan Antibiotics: [] Assessment/Plan: [] Active and Suspected Problems (Last Reviewed 02/23/20 @ 16:50 by Yanely Reyes) COPD exacerbation (Acute) Pneumonia due to COVID-19 virus (Acute) covid (+) 07/30. Mild symptoms, UAg neg, no fever, on RA. O2 prn at home. D- dimer was 1.5. On azithro/ceftriaxone, plan will be for 2 more days azithro. Will follow, thank you
--- NOTE | 2020-08-22 20:00 | PCM.PN.HOSP ---
Patient Problems: Active and Suspected Problems (Last Reviewed 02/23/20 @ 16:50 by Yanely Reyes) COPD exacerbation (Acute) Pneumonia due to COVID-19 virus (Acute) Subjective: Doing well. Completely off oxygen and maintaining oxygen saturations on room air even with ambulation Vitals/I&O's: Vital Signs Temp Pulse Resp BP Pulse Ox 98.5 F 91 18 128/74 H 95 08/22/20 14:29 08/22/20 18:00 08/22/20 14:29 08/22/20 14:29 08/22/20 14:29 Oxygen Flow Rate (L/min) 1 Oxygen Delivery Method Room Air Weight: 149 lb 7.574 oz Body Mass Index (BMI) 23.7 Intake and Output for Last 24 Hours 08/20/20 08/21/20 08/22/20 23:59 23:59 23:59 Intake Total 300 / 300 1005.00 / 1305.00 4133 / 4133 Output Total 351 / 351 Balance 299 / 299 654.00 / 954.00 4132 / 4132 General: Alert, Oriented x3, Cooperative, No apparent distress HEENT: Atraumatic, PERRLA, EOMI, Normocephalic Oral: Moist Mucosa Neck: Supple, No JVD Lungs: Normal air movement, No rhonchi, No wheeze, No rales, Diminished Cardiovascular: Regular rate, Regular Rhythm, Normal S1, Normal S2, No murmurs Abdomen: Soft, Non Tender, Non-Distended, No Hepato-splenomegaly Extremities: No edema, Capillary Refill Less than 3 Seconds Skin: No rashes, No breakdown Neurological: Neuro grossly intact, Sensory exam intact to light touch and pain Psych/Mental Status: Normal Affect, Appropriate Microbiology Past 72 Hours 08/20/20 20:26 Mucosa - Nasopharyngeal Respiratory Panel (PCR) - Final 08/20/20 22:00 Urine, Clean Catch Legionella Antigen - Final 08/20/20 22:00 Urine, Clean Catch Streptococcus pneumoniae Antigen (M - Final Current Medications Acetaminophen (Acetaminophen 325 Mg Tablet) 650 mg PO Q6H PRN PRN PRN Reason: Pain Score 1-10/Temp > 100.7 F Last Admin: 08/22/20 07:42 Dose: 650 mg Documented by: Al Hydroxide/Mg Hydroxide (Mag Hydrox/Al Hydrox/Simeth 30 Ml Udc) 30 ml PO Q6H PRN PRN PRN Reason: Gastric Burning Albuterol Sulfate (Albuterol Sulfate 8gm 60 Dose Inhaler (Floor Use-With Spacer)) 1 puff INHALATION Q4HWA [facility] Last Admin: 08/22/20 17:34 Dose: 1 puff Documented by: Albuterol Sulfate (Albuterol Sulfate 8gm 60 Dose Inhaler (Floor Use-With Spacer)) 1 puff INHALATION Q4H PRN PRN PRN Reason: Dyspnea, Wheezing Amlodipine Besylate (Amlodipine 5 Mg Tablet) 5 mg PO DAILY [facility] Last Admin: 08/22/20 10:06 Dose: 5 mg Documented by: Azithromycin (Azithromycin 250 Mg Tablet) 500 mg PO Q24 [facility] Stop: 08/24/20 10:01 Enoxaparin Sodium (Enoxaparin 30 Mg/0.3 Ml Syringe) 30 mg SC BID [facility] Last Admin: 08/22/20 10:06 Dose: 30 mg Documented by: Guaifenesin (Guaifenesin 10 Ml Udc (200mg/10ml)) 20 ml PO Q4H PRN PRN PRN Reason: COUGH Hydralazine HCl (Hydralazine 20 Mg/Ml Vial) 10 mg IV Q4H PRN PRN PRN Reason: SBP > 160 Sodium Chloride () 250 mls @ 15 mls/hr IV .[id number] PRN PRN Reason: Additional IVPB Infusion Sodium Chloride () 250 mls @ 15 mls/hr IV .[id number] PRN PRN Reason: Saline Flush Sodium Chloride () 250 mls @ 15 mls/hr IV .[id number] PRN PRN Reason: Additional IVPB Infusion Magnesium Hydroxide (Magnesium Hydroxide 30 Ml Udc) 30 ml PO DAILY PRN PRN PRN Reason: Constipation Melatonin (Melatonin 3 Mg Tablet) 3 mg PO QHS PRN PRN PRN Reason: INSOMNIA Last Admin: 08/21/20 22:21 Dose: 3 mg Documented by: Methylprednisolone (Methylprednisolone 40 Mg/Ml Vial) 40 mg IV Q8 [facility] Last Admin: 08/22/20 14:17 Dose: 40 mg Documented by: Miscellaneous Information (Inhaler, Assist Devices 1 Each Spacer) 1 each INHALATION Q4HWA [facility] Last Admin: 08/22/20 17:34 Dose: 1 each Documented by: Nitroglycerin (Nitroglycerin (Inpatient Use) 0.4 Mg Tab.Subl) 0.4 mg SUBLINGUAL Q5M PRN PRN Reason: CARDIAC/CHEST PAIN Ondansetron HCl (Ondansetron 4 Mg/2 Ml Vial) 4 mg IV Q8H PRN PRN PRN Reason: NAUSEA/VOMITING Pantoprazole Sodium (Pantoprazole Sodium 40 Mg Tablet) 40 mg PO DAILY [facility] Last Admin: 08/22/20 10:06 Dose: 40 mg Documented by: Prochlorperazine Edisylate (Prochlorperazine 10 Mg/2 Ml Vial) 5 mg IV Q4H PRN PRN PRN Reason: Breakthrough nausea/vomiting Psyllium Hydrophilic Mucilloid (Psyllium 1 Packet) 1 packet PO DAILY PRN PRN PRN Reason: Constipation Senna (Senna Tablet) 1 tablet PO DAILY PRN PRN PRN Reason: Constipation Sodium Chloride (0.9% Saline Lock 10 Ml Syringe) 10 - 40 ml IV UD PRN PRN Reason: SALINE FLUSH Last Admin: 08/22/20 14:20 Dose: 10 ml Documented by: Throat Lozenges (Benzocaine/Menthol 1 Lozenge) 1 lozenge MUCOUS MEM Q2H PRN PRN PRN Reason: SORE THROAT Last Admin: 08/21/20 05:21 Dose: 1 lozenge Documented by: STROKE Vital Signs/Narrative: Vital Signs Pulse 08/22/20 18:00 91 Medical Necessity - Tobacco Use Smoking Status: Former smoker Tobacco Use: Non-smoker Assessment/Plan All Active Problems (Last Reviewed 02/23/20 @ 16:50 by Yanely Reyes) COPD exacerbation (Acute) Severe anemia (Acute) Pneumonia due to COVID-19 virus (Acute) Lower extremity edema (Acute) Contusion of left foot, initial encounter (Acute) Vitamin B12 deficiency (Acute) Vitamin D deficiency (Acute) Tobacco abuse (Resolved) Pneumonia (Acute) 1. Acute COPD exacerbation -She was diagnosed with Covid at the end of July and does have some worsening patchy bilateral infiltrates -Continue with azithromycin and Rocephin. ID consulted -CTA of her chest on 08/07/2020 was negative for PE -Continue with duo nebs and Solu-Medrol 2. HTN/HLD -Blood pressure stable -Continue with her home medications 3. CKD 3/anemia of chronic disease -She also some iron deficiency and vitamin B12 deficiency -She does not have an LE -Continue to monitor DVT: Lovenox Inpatient E&M: 27972 Subs Hosp L2
--- NOTE | 2020-08-23 00:50 | PCS.PANDOC ---
PANDEMIC DOCUMENTATION INITIATED: Date: 08/20/20 Time: 1824
[2020-08-23 02:52] VITALS: BP 99/55; PULSE 72; RESP 18; TEMP 36.7; O2SAT 95
[2020-08-23 03:00] VITALS: PULSE 58
[2020-08-23] MEDS: INHALER, ASSIST DEVICES 1 EACH SPACER INHALATION ×2 (06:18→10:17)
[2020-08-23 07:27] VITALS: O2SAT 93
[2020-08-23 08:38] VITALS: BP 110/63; PULSE 76; RESP 18; TEMP 37.2; O2SAT 98
[2020-08-23] MEDS: Pantoprazole Sodium 40 MG Tablet PO (10:17)
[2020-08-23] MEDS: amLODIPine 5 MG Tablet PO (10:17)
[2020-08-23] MEDS: Enoxaparin 30 MG/0.3 ML Syringe SC (10:17)
[2020-08-23] MEDS: Azithromycin 250 MG Tablet 500 MG PO (10:20)
--- NOTE | 2020-08-23 12:09 | DCINST_ITS ---
- Discharge Diagnoses Current Active Problems: Current Active and Chronic Problems (Last Reviewed 02/23/20 @ 16:50 by Yanely Reyes) COPD exacerbation (Acute) Chronic anemia (Chronic) Anxiety and depression (Chronic) Pneumonia due to COVID-19 virus (Acute) CKD (chronic kidney disease), stage III (Chronic) CVA (cerebral vascular accident) (Chronic) HTN (hypertension) (Chronic) GERD (gastroesophageal reflux disease) (Chronic) HLD (hyperlipidemia) (Chronic) You will use the following diet at home:: Cardiac Your food should be the consistency of: Regular Your liquids should be the consistency of: Regular/Thin Discharge Activity: Return to Normal Activity Call your doctor if you observe: Fever of 101 or Higher, Shortness of breath, Dizziness, Fainting spells, Swelling in the ankles, Chest pain, Increased palpitations (irregular heartbeat) Allergies/Adverse Reactions: Allergies lisinopril Adverse Reaction (Verified 08/20/20 15:47) Swelling Medications to take at Discharge Albuterol Inhaler [Ventolin Hfa] 1 - 2 puff INHALATION Q4H PRN PRN #1 inhaler 11/28/17 Fluticasone/Vilanterol [Breo Ellipta 100-25 Mcg INH] 1 ea IH DAILY 02/11/18 Albuterol Aerosols [Ventolin Aerosols] 2.5 mg INHALATION Q4H PRN PRN 03/12/20 Amlodipine [Norvasc] 5 mg PO DAILY #60 tab 03/14/20 Pantoprazole Sodium [Protonix] 40 mg PO DAILY 07/30/20 Senna [Senokot] 1 tab PO PRN PRN 07/30/20 Azithromycin [Zithromax] 500 mg PO Q24 #1 tab 08/23/20 Prednisone [Deltasone] 40 mg PO DAILY #14 tab 08/23/20 The following prescriptions were given: Prednisone [Deltasone] 40 mg PO DAILY #14 tab Transmission Status: Pending to [facility] Azithromycin [Zithromax] 500 mg PO Q24 #1 tab Transmission Status: Pending to [facility] Primary Care Physician: Jethro Goel [Primary Care Provider] - Please follow up with your Primary Care Physician in: 3-5 days Test Results: Test results from this visit will be discussed in further detail at your follow- up appointment, if applicable.
[2020-08-23 13:39] VITALS: BP 147/100; PULSE 73; RESP 18; TEMP 37.1; O2SAT 98
--- NOTE | 2020-08-23 17:21 | DS.PCM_ITS ---
Discharge Date and Diagnosis - Problem List Patient Problems: Active and Suspected Problems (Last Reviewed 02/23/20 @ 16:50 by Yanely Reyes) COPD exacerbation (Acute) Pneumonia due to COVID-19 virus (Acute) Date of Admission: 08/20/20 Date of Discharge: 08/23/20 - Primary Discharge Diagnosis Acute Problems: Active Problems (Last Reviewed 02/23/20 @ 16:50 by Yanely Reyes) COPD exacerbation (Acute) Pneumonia due to COVID-19 virus (Acute) - Secondary Discharge Diagnosis Chronic Problems: Chronic Problems (Last Reviewed 02/23/20 @ 16:50 by Yanely Reyes) Chronic anemia (Chronic) Anxiety and depression (Chronic) CKD (chronic kidney disease), stage III (Chronic) Disorder of bone and cartilage (Chronic) Dysmetabolic syndrome (Chronic) Lichen sclerosus (Chronic) Hypercholesteremia (Chronic) Multiple pulmonary nodules (Chronic) Osteopenia (Chronic) Seborrheic keratoses (Chronic) Obesity (Chronic) Fatigue (Chronic) Diverticula of colon (Chronic) CVA (cerebral vascular accident) (Chronic) Anemia (Chronic) Hypertrophy of nasal turbinates (Chronic) Chronic renal failure, stage 3 (moderate) (Chronic) Urinary, incontinence, stress female (Chronic) Bronchiectasis (Chronic) Anxiety (Chronic) HTN (hypertension) (Chronic) GERD (gastroesophageal reflux disease) (Chronic) HLD (hyperlipidemia) (Chronic) Hospital Course and Treatment Imaging Results: Clinical Impression(s) from Imaging Studies Chest X-Ray 08/20/20 16:35 IMPRESSION: COPD. Worsening of nonspecific patchy bilateral peripheral linear oriented opacities of the mid and lower lungs. Electronically Signed: Moses Godwin MD at 17:03 EST , Service support , Chest CTA 08/21/20 11:33 IMPRESSION: 1. Less than optimal contrast enhancement of the bilateral peripheral pulmonary arteries. No suspicious pulmonary thromboemboli. 2. No CTA evidence of thoracic aortic aneurysm or dissection. 3. Small subpleural peripheral patchy infiltrates with minimal interlobular septal thickening in both lungs. The remaining small but have increased in number. They are nonspecific but viral pneumonia including Covid-19 cannot be excluded 4. Large gastric hernia. 5. Small hyperdense cyst and small hypodense cortical cyst in the right kidney. Electronically Signed: Serg Marie MD at 13:01 EST , Service support , Consults: ID Operations: None Procedures: None Summary of Care Provided: Per HPI: The patient is an 85 y/o F w/ PMHx: GERD, Hx CVA, Chronic anemia, CKD stage III, HTN, HLD, Tobacco use, Anxiety and Depression, Chronic COPD who presents to the [facility] ED on 08/20/20 with history of again progressively worsening dyspnea, continued coughing but non-discolored with no fever or chills with concurrent wheezing prompting ED return noting difficulty caring for herself with her ongoing issues. Patient was recently evaluated on 07/30/2020 as well as 08/07/2020. On 07/30/2020 patient discharged to home with a rapid antigen COVID- 19 test positive at that time with stable oxygenation and recommended continued home inhaler treatments. Upon return on 08/07/2020 patient with ongoing complaints of dyspnea, cough, decreased appetite and mild headache at that time but remained on room air with discharge to home at that time on Decadron regimen. Work-up in the ED included T 98.1, heart rate 78, BP 125/80, respiratory rate 24, 97% on room air, CBC with WBC C 10.2, hemoglobin 12, platelets 302 with left shift, BMP with BUN/creatinine 18/1.47, glucose 125, troponin less than 0.015, BNP 49.2, EKG sinus rhythm with PACs with no acute evidence of ischemia, chest x-ray worsening nonspecific patchy bilateral peripheral linear oriented opacities of the mid and lower lungs with chronic COPD changes. Hospital Course 1. Acute COPD exacerbation -She was diagnosed with Covid at the end of July and does have some worsening patchy bilateral infiltrates -Continue with azithromycin for 1 more day. ID consulted -CTA of her chest on 08/07/2020 was negative for PE as was a repeat CTA 08/21/2020 -Continue with duo nebs and Solu-Medrol -I discussed the plan for discharge today and she expressed understanding of the risk and benefits of going home and would like to go home today. She is not requiring any oxygen at rest or at ambulation. She will continue with prednisone 40 mg daily for 7 days today and she to resumer her home inhaler 2. HTN/HLD -Blood pressure stable -Continue with her home medications 3. CKD 3/anemia of chronic disease -She also some iron deficiency and vitamin B12 deficiency -She does not have an LE -Continue to monitor Patient Problems: Active and Suspected Problems (Last Reviewed 02/23/20 @ 16:50 by Yanely Reyes) COPD exacerbation (Acute) Pneumonia due to COVID-19 virus (Acute) - Physical Exam Vitals/I&O's: Vital Signs Temp Pulse Resp BP Pulse Ox 98.7 F 73 18 147/100 H 98 08/23/20 13:39 08/23/20 13:39 08/23/20 13:39 08/23/20 13:39 08/23/20 13:39 Oxygen Flow Rate (L/min) 1 Oxygen Delivery Method Room Air Weight: 153 lb 14.122 oz Body Mass Index (BMI) 23.7 Intake and Output for Last 24 Hours 08/21/20 08/22/20 08/23/20 23:59 23:59 23:59 Intake Total 1005.00 / 1305.00 4133 / 4333 1400 / 1400 Output Total 351 / 351 1 / Balance 654.00 / 954.00 4132 / 4332 1400 / 1400 General: Alert, Oriented x3, Cooperative, No apparent distress HEENT: Atraumatic, PERRLA, EOMI, Normocephalic Oral: Moist Mucosa Neck: Supple, No JVD Lungs: Normal air movement, No rhonchi, No wheeze, No rales, Diminished Cardiovascular: Regular rate, Regular Rhythm, Normal S1, Normal S2, No murmurs Abdomen: Soft, Non Tender, Non-Distended, No Hepato-splenomegaly Extremities: No edema, Capillary Refill Less than 3 Seconds Skin: No rashes, No breakdown Neurological: Neuro grossly intact, Sensory exam intact to light touch and pain Psych/Mental Status: Normal Affect, Appropriate Microbiology Past 72 Hours 08/20/20 16:00 Blood Culture (Wb) #2 - Right Forearm Blood Culture - Preliminary No growth in 48 hours. 08/20/20 15:50 Blood Culture (Wb) - Anticubital Left Blood Culture - Preliminary No growth in 48 hours. 08/20/20 20:26 Mucosa - Nasopharyngeal Respiratory Panel (PCR) - Final 08/20/20 22:00 Urine, Clean Catch Legionella Antigen - Final 08/20/20 22:00 Urine, Clean Catch Streptococcus pneumoniae Antigen (M - Final Discharge Activity: Return to Normal Activity Call your doctor if you observe: Fever of 101 or Higher, Shortness of breath, Dizziness, Fainting spells, Swelling in the ankles, Chest pain, Increased palpitations (irregular heartbeat) Home Medications: Medications to take at Discharge Albuterol Inhaler [Ventolin Hfa] 1 - 2 puff INHALATION Q4H PRN PRN #1 inhaler 11/28/17 Fluticasone/Vilanterol [Breo Ellipta 100-25 Mcg INH] 1 ea IH DAILY 02/11/18 Albuterol Aerosols [Ventolin Aerosols] 2.5 mg INHALATION Q4H PRN PRN 03/12/20 Amlodipine [Norvasc] 5 mg PO DAILY #60 tab 03/14/20 Pantoprazole Sodium [Protonix] 40 mg PO DAILY 07/30/20 Senna [Senokot] 1 tab PO PRN PRN 07/30/20 Azithromycin [Zithromax] 500 mg PO Q24 #1 tab 08/23/20 Prednisone [Deltasone] 40 mg PO DAILY #14 tab 08/23/20 Following Prescriptions Were Given to Patient: Prednisone [Deltasone] 40 mg PO DAILY #14 tab Transmission Status: Received by [facility] Azithromycin [Zithromax] 500 mg PO Q24 #1 tab Transmission Status: Received by [facility] Primary Care Physician: Jethro Goel [Primary Care Provider] - Please follow up with your Primary Care Physician in: 3-5 days Please Follow Up With: Jethro Goel, DO When: 3-5 days Disposition: Home Minutes spent on discharge:: 35 Patient Condition:: Stable Medical Necessity - Tobacco Use Smoking Status: Former smoker Tobacco Use: Non-smoker Meaningful Use Info Meaningful Use Diagnoses (Choose all that apply): None applicable Inpatient E&M: 75499 Disch Hosp
--- NOTE | 2020-08-24 16:36 | NURSING ---
TERI DC F/u Call: Discharge Date: 08/23/2020 Discharge Diagnosis: COPD exacerbation (Acute), Pneumonia due to COVID-19 virus (Acute) Discharge Disposition: Home LACE/Strata: 15/12 Called patient's listed cell phone number, no answer and VM did not verifiy correct identity- therefore no VM left. Called patient's listed home number and answered thank you for calling registration, this is Jackie- appears in accurate home number. TERI Najera
== END 2020-08-23 13:43 | disposition home or self-care (01) | DRG 190 ==
LOC: ED 17:28 → MS3 17:51
PROVIDERS: Admitting Provider Family Medicine; Emergency Provider Emergency Medicine; PCP Student in an Organized Health Care Education/Training Program; Visit Provider Family Medicine
DX: J44.0 Chronic obstructive pulmonary disease with (acute) lower respiratory infection (principal); J12.89 Other viral pneumonia; U07.1 COVID-19; J44.1 Chronic obstructive pulmonary disease with (acute) exacerbation; I12.9 Hypertensive chronic kidney disease with stage 1 through stage 4 chronic kidney disease, or unspecified chronic kidney disease; N18.30 Chronic kidney disease, stage 3 unspecified; E78.5 Hyperlipidemia, unspecified; D50.9 Iron deficiency anemia, unspecified; D63.8 Anemia in other chronic diseases classified elsewhere; Z87.01 Personal history of pneumonia (recurrent); K21.9 Gastro-esophageal reflux disease without esophagitis; Z87.891 Personal history of nicotine dependence; D51.9 Vitamin B12 deficiency anemia, unspecified; F32.9 Major depressive disorder, single episode, unspecified; F41.9 Anxiety disorder, unspecified
CPT/HCPCS: 36415; 71045; 71275; 80048; 80053; 82728; 83735; 83880; 84145; 84484; 85025; 85379; 86140; 87040; 87449; 87633; 93005; 94640; 94667; 94668; 97161; 97165; 99251; 99285; J7030; J7050; Q9967; A4216; G0463; J0696

== ENCOUNTER 2020-10-01 11:42 | Emergency (ER) | payer MEDICARE, MEDICAID, SELFPAY ==
[2020-08-20 19:33] VITALS: BMI 23.7
[2020-10-01 11:43] VITALS: BP 176/98; PULSE 95; RESP 17; TEMP 36.4; O2SAT 98; BMI 25.9
--- NOTE | 2020-10-01 12:04 | ED.DCSUM_ITS ---
History of Present Illness Chief Complaint: Edema Informant: Patient Narrative: 85-year-old female states that she is here for left foot swelling. She denies any trauma. She denies any pain in the leg. She tells me that some present for 2 to 3 days. She went to urgent care and they sent her to the emergency department to rule out blood clot in her leg. They document on their paperwork that the patient's had symptoms for 3 weeks. Patient disputes this. Patient states she was recently hospitalized with Covid for 8 days and has been home for about a week. When I look at her chart I see that she was hospitalized for 4 days at the end of August and has been home for over a month. She denies any known kidney disease but the chart suggest that she has a history of chronic kidney disease. - Past Medical History (1) Anxiety and depression Status: Chronic (2) CKD (chronic kidney disease), stage III Status: Chronic (3) Chronic anemia Status: Chronic (4) GERD (gastroesophageal reflux disease) Status: Chronic (5) HLD (hyperlipidemia) Status: Chronic (6) HTN (hypertension) Status: Chronic (7) Hypercholesteremia Status: Chronic (8) Lichen sclerosus Status: Chronic Past Medical History - Allergies and Home Meds Allergies/Adverse Reactions: Allergies lisinopril Adverse Reaction (Verified 10/01/20 11:43) Swelling Primary Care Physician: Jethro Goel [Primary Care Provider] - Surgical History: noncontributory, - - Surgery for stress incontinence including a sling procedure, nasal surgery. Smoking Status: Former smoker Drugs: None - Family History Paternal Family History: Reports: Cancer - Father with history of Prostate cancer., Diabetes Maternal Family History: Reports: Cancer - Mother with history of Breast cancer. Review of Systems General: Denies: Chills, Fever, Sweats Eyes: Denies: Visual changes - bilaterally, Diplopia ENT: Denies: Rhinorrhea, Sore throat Cardiovascular: Denies: Chest pain, Palpitations Respiratory: Denies: Dyspnea, Cough, Dyspnea on exertion Gastrointestinal: Denies: Abdominal pain, Nausea, Vomiting, Diarrhea, Melena, Hematochezia Genitourinary: Denies: Dysuria, Hematuria, Frequency Musculoskeletal: Reports: Swelling. Denies: Back pain, Extremity Pain Skin: Denies: Rash, Wounds Neurological: Denies: Headache, Weakness, Numbness Physical Exam Vital Signs/Narrative: Vital Signs Temp Pulse Resp BP Pulse Ox 10/01/20 11:43 97.6 F L 95 17 176/98 H 98 Inital Vital Signs reviewed: Yes General: Well nourished, Well developed, No Acute Distress Head: Normocephalic, Atraumatic Eyes: Perrl, EOMI ENT: Moist mucous membranes, No rhinorrhea Neck: Supple, Nontender Cardiovascular: Regular rate, Regular rhythm, No murmurs Respiratory: No distress, CTA bilaterally, Chest nontender Abdomen: Soft, Nontender, Nondistended, Normal bowel sounds Back: Nontender, Normal Inspection Extremities: Nontender, Edema - There is swelling of the left foot. There is some mild swelling over the medial malleolus of the right ankle. Calf is nontender. No cords or significant varicosities noted. Normal color of the skin Skin: Normal color, No rash Neurological: Alert, Oriented x3, Cranial nerves II-XII grossly intact, Normal Strength, Normal Sensation Psychological: Normal affect, Normal Mood Diagnostic/Tx/Re-eval Laboratory Last Values Sodium 141 mmol/L (136-145) 10/01/20 12:15 Potassium 4.0 mmol/L (3.5-5.1) 10/01/20 12:15 Chloride 110 mmol/L (98-107) H 10/01/20 12:15 Carbon Dioxide 23.0 mmol/L (21.0-32.0) 10/01/20 12:15 Anion Gap 8 (5-15) 10/01/20 12:15 BUN 10 mg/dL (7-18) 10/01/20 12:15 Creatinine 1.34 mg/dL (0.55-1.02) H 10/01/20 12:15 Estim Creat Clear Calc 28.73 ml/min 10/01/20 12:15 Est GFR (MDRD) Af Amer 48 mL/min (>60) L 10/01/20 12:15 Est GFR (MDRD) Non-Af 40 mL/min (>60) L 10/01/20 12:15 BUN/Creatinine Ratio 7.5 RATIO (10-20) L 10/01/20 12:15 Glucose 122 mg/dL (74-106) H 10/01/20 12:15 Calcium 9.3 mg/dL (8.5-10.1) 10/01/20 12:15 - Medical Decision Making The patient is presenting on a Saturday and duplex nutrition and dietetics instructor needs to be called in from home. At 1 hour and 5 minutes into her stay the patient was standing in the hallway upset that nobody was here and we were not doing anything for her. I got the patient back into the room and informed her that they had 1 hour from the time they were called to get here to perform the ultrasound. She states that she is not waiting 2 to 3 hours. While we are having this conversation the nutrition and dietetics instructor arrived. The patient maintains that she has been waiting for well over 1 hour. I informed her is 1 hour after I complete my exam and place the order. I attempted to show her that every patient that arise in the emergency department gets a tracking time the moment they are registered in triage. She does not want to hear this. The patient got her coat on and left. ED Disposition - Plan for ED Patient: Disposition: Against Medical Advice Diagnosis: Swelling of left foot Referrals: Jethro Goel [Primary Care Provider] -
[2020-10-01 12:34] LABS: Anion Gap 8 (5-15); BUN 10 mg/dL (7-18); BUN/Creat Ratio 7.5 RATIO (10-20); Calcium,Total 9.3 mg/dL (8.5-10.1); Chloride 110 mmol/L (98-107); Creatinine, Serum 1.34 mg/dL (0.55-1.02); EST Glomerular Filtration Rate 40 mL/min (>60); Est Glom Filt Rate - Afr Amer 48 mL/min (>60); Estimated Creatinine Clearance 28.73 ml/min; Glucose 122 mg/dL (74-106); Sodium Level 141 mmol/L (136-145)
--- NOTE | 2020-10-01 12:48 | ED.RN ---
pt out in hallway screaming. states how long does it take for this person to get here. this rn reminds pt that she was informed that tech needed to be called in. pt yelling in the hallway, that she is not staying for this. pt aware she is free to leave at anytime.
--- NOTE | 2020-10-01 12:52 | ED.RN ---
[facility] TECH ARRIVES IN ROOM. PT REFUSES TO CHANGE INTO GOWN FOR EXAM. DR MCMILLAN IN ROOM. OFFERS PT CHOICE TO GET INTO GOWN FOR EXAM OR CHOOSE TO LEAVE. PT STATES I AM LEAVING. STORMS OUT OF DEPARARTMENT
[2020-10-01 12:53] LABS: Absolute Lymphocyte Count 0.89 X10^3/uL (0.83-4.51); Absolute Neutrophil Count 4.5 X10^3/uL (2.0-7.7); Basophil# 0.03 X10^3/uL; Basophil% 0.5 % (0-1); Eosinophil# 0.17 X10^3/uL; Eosinophils% 2.8 % (0-5); Hematocrit 31.2 % (37-47); Hemoglobin 9.4 g/dL (12.0-15.0); Lymphocyte # 0.89 X10^3/ul (4.0); Lymphocyte % 14.7 % (19-41); Mean Corp Hgb Conc 30.1 g/dL (32-36); Mean Corpuscular Hgb 29.7 pg (27.0-32.0); Mean Corpuscular Volume 98.4 fL (81-99); Mean Platelet Vol. 10.2 fl (6.2-12.0); Monocyte# 0.43 X10^3/uL; Monocyte% 7.1 % (0-10); NRBC Flagged by Analyzer 0 % (0-5); Neutrophil # 4.52 X10^3/uL (2.7-7.7); Neutrophil % 74.9 % (47-70); Platelet Count 305 K/mm3 (150-450); RBC Distribution Width CV 16.3 % (11.6-14.6); RBC Distribution Width SD 59.6 fl (35.1-43.9); Red Blood Count 3.17 M/mm3 (4.2-5.4)
== END 2020-10-01 13:10 | disposition left against medical advice (07) ==
PROVIDERS: Emergency Provider Emergency Medicine; PCP Student in an Organized Health Care Education/Training Program
DX: M79.89 Other specified soft tissue disorders (principal); K21.9 Gastro-esophageal reflux disease without esophagitis; I12.9 Hypertensive chronic kidney disease with stage 1 through stage 4 chronic kidney disease, or unspecified chronic kidney disease; N18.30 Chronic kidney disease, stage 3 unspecified; Z87.891 Personal history of nicotine dependence
CPT/HCPCS: 80048; 85025; 99282

== ENCOUNTER 2020-11-30 09:43 | Emergency (ER) | payer MEDICARE, SELFPAY ==
[2020-11-30 09:44] VITALS: BP 193/96; PULSE 82; RESP 18; TEMP 36.6; O2SAT 99; BMI 26.6
[2020-11-30] MEDS: MethylPREDNISolone 125 MG/2 ML Vial IV (10:27)
[2020-11-30] MEDS: DiphenhydrAMINE 50 MG/ML Syringe 25 MG IV (10:27)
[2020-11-30 10:29] LABS: Absolute Lymphocyte Count 0.73 X10^3/uL (0.83-4.51); Absolute Neutrophil Count 3.6 X10^3/uL (2.0-7.7); Basophil# 0.03 X10^3/uL; Basophil% 0.6 % (0-1); Eosinophils% 2.1 % (0-5); Hemoglobin 8.6 g/dL (12.0-15.0); Lymphocyte # 0.73 X10^3/ul (4.0); Lymphocyte % 15.2 % (19-41); Mean Corp Hgb Conc 29.7 g/dL (32-36); Mean Corpuscular Hgb 25.4 pg (27.0-32.0); Mean Corpuscular Volume 85.8 fL (81-99); Mean Platelet Vol. 9.7 fl (6.2-12.0); Monocyte# 0.38 X10^3/uL; Monocyte% 7.9 % (0-10); NRBC Flagged by Analyzer 0 % (0-5); Neutrophil # 3.56 X10^3/uL (2.7-7.7); Platelet Count 337 K/mm3 (150-450); RBC Distribution Width CV 16.3 % (11.6-14.6); RBC Distribution Width SD 51.7 fl (35.1-43.9); Red Blood Count 3.38 M/mm3 (4.2-5.4); White Blood Count 4.8 K/mm3 (4.4-11.0)
[2020-11-30 10:48] LABS: AST(SGOT) 28 U/L (15-37); Alanine Aminotransfer ALT/SGPT 19 U/L (13-56); Albumin, Serum 3.8 g/dL (3.2-5.0); Alkaline Phosphatase 88 U/L (45-117); Anion Gap 4 (5-15); BUN 16 mg/dL (7-18); BUN/Creat Ratio 10.6 RATIO (10-20); Calcium,Total 9.6 mg/dL (8.5-10.1); Chloride 109 mmol/L (98-107); Creatinine, Serum 1.51 mg/dL (0.55-1.02); EST Glomerular Filtration Rate 35 mL/min (>60); Est Glom Filt Rate - Afr Amer 42 mL/min (>60); Globulin 3.9 g/dL (2.2-4.2); Glucose 111 mg/dL (74-106); Potassium 3.9 mmol/L (3.5-5.1); Protein, Total 7.7 g/dL (6.4-8.2); Sodium Level 139 mmol/L (136-145)
--- NOTE | 2020-11-30 11:02 | ED.DCSUM_ITS ---
- ER Visit Summary Date of Service: 11/30/20 Chief Complaint: Rash History of Present Illness: The patient is a [address] Goel. She reports that she has a rash that began 2 to 3 weeks ago. However, she then states that she has been on clobebestarol and pimecromilus creams for 6 weeks without relief. She saw a emergency care attendant yesterday and had an injection of Dupixent without any relief. She denies any pain. She just reports that they itch horribly. She states that yesterday she took half of the Benadryl with no relief. She is not on Zyrtec. Patient denies any change in soap, shampoo, laundry detergent, or fabric softener. No new clothing, bedding, carpeting, or pets. No new medications in the past month. Review of systems: General: No fever, chills, cold sweats. Cardiovascular: No chest pain, palpitations. Respiratory: No cough, shortness of breath, dyspnea on exertion. Gastrointestinal: No abdominal pain, nausea, vomiting, diarrhea, melena, or hematochezia. Genitourinary: No dysuria, frequency, hematuria. Neuro: No headache, numbness, weakness. Physical Examination: Vitals: Stable. Afebrile. General: Well-nourished and well-developed. Head: Normocephalic atraumatic. Neck: Supple, no lymphadenopathy. No JVD. Nontender. Cardiovascular: Regular rate and rhythm. No murmurs. Respiratory: No respiratory distress. Clear to auscultation bilaterally. Abdominal: Soft, nontender, nondistended, normal bowel sounds. No guarding, rebound, or peritoneal signs. Back: Nontender. Extremities: Nontender, no edema. Skin: Scattered over her upper extremities and upper back there are approximately 0.5 cm maculopapular lesions with minimal surrounding erythema. There is surrounding excoriation. There is no induration or fluctuance to suggest infection. Neurologic: Alert and oriented ?3. Cranial nerves II through XII are intact. Normal strength and sensation. Psych: Normal affect. Test Results: CBC shows an H&H of 8.6 and 29.0, stable neutrophils 74 and lymphocytes 15. Of note her hemoglobin was 9.4 in September. Chem-7 shows a chloride of 109, BUN of 111, creatinine 1.51. Creatinine was 0.134?1.65 last year. LFTs are normal. Emergency Department Course and Treatment: Patient was given a dose of Benadryl and Solu-Medrol IV. She does report significant relief from this. Treatment Plan: Patient will have Zyrtec added to her regimen. She is instructed to use Benadryl in addition to this at the more therapeutic doses. Follow-up with her primary care physician in 3 to 5 days for another exam. Her blood pressures also been elevated here. She is asymptomatic with this. She is instructed to follow-up with her primary care physician for repeat blood pressure and to see if she needs to be placed on medication for this. Return to the emergency department for any worsening symptoms. Disposition: To home in improved and stable condition. Impression: 1. Rash, uncertain cause. 2. Hypertension. This note was generated with [employer] dictation software. It may contain incorrect words, spelling, and punctuation that were not noted in review of the chart prior to signing ED Disposition - Plan for ED Patient: Disposition: Home or Assisted Living Instructions: Self-Care for Skin Rashes Prescriptions: Cetirizine HCl [Zyrtec] 10 mg PO DAILY #14 capsule Prescription Printed Referrals: Jethro Goel [Primary Care Provider] - 1-2 Days if not improving
[2020-11-30 12:30] VITALS: BP 195/105; PULSE 68; RESP 15; O2SAT 97
== END 2020-11-30 12:35 | disposition home or self-care (01) ==
PROVIDERS: Emergency Provider Emergency Medicine; PCP Student in an Organized Health Care Education/Training Program
DX: R21 Rash and other nonspecific skin eruption (principal); I10 Essential (primary) hypertension; J44.9 Chronic obstructive pulmonary disease, unspecified; Z87.891 Personal history of nicotine dependence
CPT/HCPCS: 80053; 85025; 96374; 96375; 99282; A4216

== ENCOUNTER 2020-12-22 22:42 | Emergency (ER) | payer MEDICARE, MEDICAID, SELFPAY ==
[2020-12-22 22:43] VITALS: BP 169/86; PULSE 68; RESP 18; TEMP 36.8; O2SAT 98; BMI 27.4
--- NOTE | 2020-12-22 22:59 | CT_ITS ---
STUDY: CT SOFT TISSUE NECK WITH CONTRAST REASON FOR EXAM: Female, 85 years old. left neck swelling RADIATION DOSAGE (If Supplied By Facility): CTDIvol = ( 12.66 ) mGy, DLP = ( 344.70 ) mGycm TECHNIQUE: The patient was scanned in a multi-detector CT scanner. High resolution transaxial imaging was performed following intravenous administration of IV 75mL Isovue-370. Sagittal and coronal images were reconstructed. Individualized dose optimization techniques were used for this CT. COMPARISON: 06/28/2015. FINDINGS: Normal bilateral parotid glands. Normal bilateral family sociologist spaces. Normal bilateral parapharyngeal spaces. Normal bilateral carotid spaces. There is a diffuse enlargement of the left submandibular gland with diffuse enhancement/hyperemia suggestive of a nonspecific inflammatory process. No evidence of abscess seen. Normal visualized nasopharynx. Normal retropharyngeal space. Normal perivertebral space. Normal visualized bilateral faucial tonsils. The visualized tongue, tongue base and oropharynx are normal. The visualized cervical lymph nodes (levels I-) are within normal size limits, and maintain normal morphology. There is no demonstrated solid or cystic mass lesion. There is no abnormal contrast enhancement. Normal epiglottis, bilateral vallecula and hypopharynx. The pre-epiglottic and paraglottic adipose spaces are normal. Normal visualized bilateral piriform sinuses, aryepiglottic folds, vocal cords, and arytenoid-cricoid articulations. Normal subglottic trachea. Normal bilateral lobes of the thyroid gland. Lung apices reveal small diffuse cystic changes suggestive of emphysema. Normal visualized paranasal sinuses. There is multilevel degenerative changes of the cervical spine. Atherosclerotic disease involving the bilateral carotid arteries, predominantly in the bulb region. CT/Soft Tissue Neck WITH Contrast IMPRESSION: Diffuse enlargement with enhancement homogeneously through the left submandibular gland and surrounding stranding consistent with sialadenitis. No evidence of abscess. Electronically Signed: Anushka Amaro MD at 0:43 EDT , Service support ,
--- NOTE | 2020-12-22 23:00 | ED.DCSUM_ITS ---
History of Present Illness <StevieTy - Last Filed: 12/23/20 00:26> Informant: Patient Narrative: 85-year-old female with past medical history of hypertension presents with swelling to her left neck. States that she noticed that this evening while she was sitting watching television. States that she was rubbing her neck and noticed that it was slightly swollen. States there is slight pain whenever she pushes on the area. Denies any difficulty swallowing. Denies any fever, chills, night sweats, weight loss, cough, nausea, vomiting, vision change, headache. Denies any trauma to the area. States that she currently does have a rash to her bilateral arms for which she is being treated by her primary care provider with a cold remedy that she cannot remember the name of at this time. <David Castrejon - Last Filed: 12/23/20 01:02> Chief Complaint: Wound Past Medical History <Isaiah Hubbardald - Last Filed: 12/23/20 00:26> Prior records reviewed: Yes Past Medical History: - - HTN Surgical History: noncontributory, - - Surgery for stress incontinence including a sling procedure, nasal surgery. Lives: Alone Smoking Status: Former smoker Alcohol: None Drugs: None - Family History Paternal Family History: Reports: Cancer - Father with history of Prostate cancer., Diabetes Maternal Family History: Reports: Cancer - Mother with history of Breast cancer. <David Castrejon - Last Filed: 12/23/20 01:02> - Allergies and Home Meds Allergies/Adverse Reactions: Allergies lisinopril Adverse Reaction (Verified 12/22/20 22:46) Swelling Primary Care Physician: Jethro Goel [Primary Care Provider] - Review of Systems General: Denies: Chills, Fever, Sweats Eyes: Denies: Visual changes - bilaterally, Diplopia ENT: Reports: - - left neck swelling. Denies: Rhinorrhea, Sore throat Cardiovascular: Denies: Chest pain, Palpitations Respiratory: Denies: Dyspnea, Cough, Dyspnea on exertion Gastrointestinal: Denies: Abdominal pain, Nausea, Vomiting, Diarrhea, Melena, Hematochezia Genitourinary: Denies: Dysuria, Hematuria, Frequency Musculoskeletal: Denies: Back pain, Extremity Pain Skin: Denies: Rash, Wounds Neurological: Denies: Headache, Weakness, Numbness <David Castrejon - Last Filed: 12/23/20 01:02> Physical Exam Vital Signs/Narrative: Vital Signs Temp Pulse Resp BP Pulse Ox 12/22/20 22:43 98.3 F 68 18 169/86 H 98 <Ty Hubbard - Last Filed: 12/23/20 00:26> Vital Signs/Narrative: Vital Signs Temp Pulse Resp BP Pulse Ox 12/22/20 22:43 98.3 F 68 18 169/86 H 98 Inital Vital Signs reviewed: Yes General: Well nourished, Well developed, No Acute Distress Head: Normocephalic, Atraumatic Eyes: Perrl, EOMI ENT: Moist mucous membranes, No rhinorrhea Neck: Supple, Nontender, - - Firm, mobile, left neck mass. No overlying skin changes. Cardiovascular: Regular rate, Regular rhythm, No murmurs Respiratory: No distress, CTA bilaterally, Chest nontender Abdomen: Soft, Nontender, Nondistended, Normal bowel sounds Back: Nontender, Normal Inspection Extremities: Nontender, No edema Skin: Normal color, No rash Neurological: Alert, Oriented x3, Cranial nerves II-XII grossly intact, Normal Strength, Normal Sensation Psychological: Normal affect, Normal Mood <David Castrejon - Last Filed: 12/23/20 01:02> Diagnostic/Tx/Re-eval Clinical Impression(s) from Imaging Studies Soft Tissue Neck CT 12/22/20 22:59 IMPRESSION: Diffuse enlargement with enhancement homogeneously through the left submandibular gland and surrounding stranding consistent with sialadenitis. No evidence of abscess. Electronically Signed: Anushka Amaro MD at 0:43 EDT , Service support , Laboratory Data 12/22/20 12/22/20 23:20 23:20 WBC 10.0 RBC 3.45 L Hgb 8.2 L Hct 27.8 L MCV 80.6 L MCH 23.8 L MCHC 29.5 L RDW Std Deviation 50.9 H RDW Coeff of Jung 17.3 H Plt Count 181 MPV 10.8 Immature Gran % (Auto) 0.500 Neut % (Auto) 78.2 H Lymph % (Auto) 12.0 L [place] % (Auto) 8.0 Eos % (Auto) 0.8 Baso % (Auto) 0.5 Absolute Neuts (auto) 7.8 H Absolute Lymphs (auto) 1.20 Nucleated RBC % 0 Sodium 140 Potassium 3.6 Chloride 109 H Carbon Dioxide 28.0 Anion Gap 3 L BUN 20 H Creatinine 1.49 H Estim Creat Clear Calc 25.84 Est GFR (MDRD) Af Amer 43 L Est GFR (MDRD) Non-Af 35 L BUN/Creatinine Ratio 13.4 Glucose 105 Calcium 9.2 TSH 1.49 - Medical Decision Making Patient appears well and nontoxic. Vital signs within normal limits. Lab work within normal limits other than chronic changes in renal function as well as hemoglobin. CT shows evidence of sialadenitis with submandibular gland swelling and inflammation. No abscess. Patient be placed on Augmentin and advised on u sing lemon candy. Patient be given ENT follow-up. Asked to return for new or worsening symptoms. Patient agreeable and stable at time of discharge. Impression: 1. Left submandibular sialadenitis <David Castrejon - Last Filed: 12/23/20 01:02> ED Disposition <Ty Hubbard - Last Filed: 12/23/20 00:26> <David Castrejon - Last Filed: 12/23/20 01:02> - Plan for ED Patient: Disposition: Home or Assisted Living Instructions: ED Salivary Gland Infection, ED Salivary Gland Stones Prescriptions: Amox/Clavulanate Tablet [Augmentin Tablet] 875 mg PO Q12H #14 tab Prescription Printed Referrals: Jethro Goel [Primary Care Provider] - 2 Days Tae Emery MD [STAFF PHYSICIAN] - 3-5 Days Additional Instructions: Please use lemon candy from the store to aid in the unblocking of your salivary tube. Massage of the gland may also be beneficial. Please return for fevers or worsening pain.
[2020-12-22 23:33] LABS: Absolute Neutrophil Count 7.8 X10^3/uL (2.0-7.7); Basophil# 0.05 X10^3/uL; Basophil% 0.5 % (0-1); Eosinophil# 0.08 X10^3/uL; Eosinophils% 0.8 % (0-5); Hematocrit 27.8 % (37-47); Hemoglobin 8.2 g/dL (12.0-15.0); Mean Corp Hgb Conc 29.5 g/dL (32-36); Mean Corpuscular Hgb 23.8 pg (27.0-32.0); Mean Corpuscular Volume 80.6 fL (81-99); Mean Platelet Vol. 10.8 fl (6.2-12.0); NRBC Flagged by Analyzer 0 % (0-5); Neutrophil # 7.78 X10^3/uL (2.7-7.7); Neutrophil % 78.2 % (47-70); Platelet Count 181 K/mm3 (150-450); RBC Distribution Width CV 17.3 % (11.6-14.6); RBC Distribution Width SD 50.9 fl (35.1-43.9); Red Blood Count 3.45 M/mm3 (4.2-5.4)
[2020-12-22 23:52] LABS: Anion Gap 3 (5-15); BUN 20 mg/dL (7-18); BUN/Creat Ratio 13.4 RATIO (10-20); Calcium,Total 9.2 mg/dL (8.5-10.1); Chloride 109 mmol/L (98-107); Creatinine, Serum 1.49 mg/dL (0.55-1.02); EST Glomerular Filtration Rate 35 mL/min (>60); Est Glom Filt Rate - Afr Amer 43 mL/min (>60); Estimated Creatinine Clearance 25.84 ml/min; Glucose 105 mg/dL (74-106); Potassium 3.6 mmol/L (3.5-5.1); Sodium Level 140 mmol/L (136-145); Thyroid Stim Hormone (TSH) 1.49 uIU/mL (0.358-3.74)
[2020-12-23] MEDS: Amox/Clavulanate 875 MG Tablet PO (01:04)
[2020-12-23 01:11] VITALS: BP 158/60; PULSE 69; RESP 18; O2SAT 97
== END 2020-12-23 01:11 | disposition home or self-care (01) ==
PROVIDERS: Emergency Provider Emergency Medicine; PCP Student in an Organized Health Care Education/Training Program
DX: K11.20 Sialoadenitis, unspecified (principal); Z87.891 Personal history of nicotine dependence; Z79.899 Other long term (current) drug therapy
CPT/HCPCS: 70491; 80048; 84443; 85025; 99284; Q9967; A4216

== ENCOUNTER 2021-01-08 20:32 | Emergency (ER) | payer MEDICARE, MEDICAID, SELFPAY ==
[2021-01-08 20:34] VITALS: BP 161/90; PULSE 93; RESP 22; TEMP 35.9; O2SAT 97; BMI 25.8
--- NOTE | 2021-01-08 21:06 | EDS_ITS ---
HPI History of Present Illness Chief Complaint: Rash Narrative Narrative: 85-year-old female presenting with rash. She states this has been ongoing for the past 3 months. She complains of itching. She has tried Benadryl at home. She is very frustrated with the itching. She denies fever. She has been seeing dermatology and has been diagnosed with atopic dermatitis. She states she has multiple topical medications that she has been using. She has tried moisturizers. She is not scheduled to see dermatology again until January. She ran out of some of her topical medications. She did not believe that these helped when she had them. Denies other complaints. [facility] Medical History Anemia Anxiety Bronchiectasis Chronic renal failure, stage 3 (moderate) CVA (cerebral vascular accident) Disorder of bone and cartilage Diverticula of colon Dysmetabolic syndrome Fatigue GERD (gastroesophageal reflux disease) HLD (hyperlipidemia) HTN (hypertension) Hypercholesteremia Hypertrophy of nasal turbinates Lichen sclerosus Multiple pulmonary nodules Obesity Osteopenia Pneumonia Seborrheic keratoses Tobacco abuse Urinary, incontinence, stress female Vitamin B12 deficiency Vitamin D deficiency Home Medications albuterol sulfate 1 - 2 puff INHALATION Q4H PRN PRN #1 inhaler 11/28/17 [Rx Last Taken 09/01/19] fluticasone furoate-vilanterol 1 ea IH DAILY 02/11/18 [History Last Taken 09/01/19] albuterol sulfate 2.5 mg INHALATION Q4H PRN PRN 03/12/20 [History Last Taken Unknown] pantoprazole 40 mg PO DAILY 07/30/20 [History Last Taken 08/20/20] cetirizine 10 mg PO DAILY #14 capsule 11/30/20 [Rx Last Taken Unknown] clobetasol-emollient 15 gm TP BID 11/30/20 [History Last Taken Unknown] pimecrolimus 30 gm TP BID 11/30/20 [History Last Taken Unknown] amoxicillin-pot clavulanate 875 mg PO Q12H #14 tab 12/23/20 [Rx Last Taken Unknown] hydroxyzine pamoate [Vistaril] 25 mg PO QHS PRN #10 cap 01/08/21 [Rx Last Taken Unknown] Allergy/AdvReac Type Severity Reaction Status Date / Time lisinopril AdvReac Swelling Verified 01/08/21 20:34 Social History (Updated 02/23/20 @ 17:59 by Brian TRUJILLO, PA) Smoking Status: Former smoker ROS ROS ED Constitutional Constitutional ED: Denies fever(s) Eyes Eyes: Denies change in vision ENT ENT ED: Denies rhinorrhea or sore throat Cardiovascular Cardiovascular: Denies chest pain or palpitations Respiratory/Chest Respiratory/Chest: Denies cough or dyspnea Gastrointestinal Gastrointestinal: Denies abdominal pain, diarrhea, nausea or vomiting Genitourinary Genitourinary ED: Denies dysuria Musculoskeletal Musculoskeletal: Denies myalgias Integumentary Reports rash Neurologic Neurologic: Denies headache(s) EXAM Physical Exam Const Vital Signs: 01/08/21 20:34 Temperature 96.7 F L Temperature Source Temporal Pulse Rate 93 Respiratory Rate 22 H Blood Pressure 161/90 H Blood Pressure Mean 113 Pulse Ox 97 Oxygen Delivery Method Room Air Positive well nourished and well developed General Appearance ED: well developed HEENT Reports normocephalic and head/scalp atraumatic Eyes PERRL and EOMs intact bilaterally Neck supple General: Negative for tenderness Chest Wall inspection of chest normal Resp normal respiratory effort and clear to auscultation bilaterally Cardio regular rate and regular rhythm GI non-tender and non-distended Palpation: soft; Negative for guarding or rebound tenderness present no CVA tenderness Extremity normal to inspection Neuro oriented x3 Sensorium / Orientation: alert Psych mental status grossly normal Skin Skin Narrative: Multiple excoriated macular lesions to trunk and upper ext remities. No surrounding erythema or fluctuance. No petechia or purpura. No vesicular lesions. MDM MDM MDM Narrative Medical decision making narrative: She is given short course of Vistaril for itching. She is advised to follow-up with dermatology. Advised to return to ED for worsening complaints. Discharge Plan Triage Chief Complaint: Rash ED Provider: Cary Peacock Dx/Rx/DC Orders Clinical Impression: Atopic dermatitis Instructions: ED Atopic Dermatitis (Adult) Prescriptions: New hydroxyzine pamoate [Vistaril] 25 mg capsule 25 mg PO QHS PRN (Reason: itching) Qty: 10 RF: 0 No Action albuterol sulfate 1 INHALER inhaler 1 - 2 puff INHALATION Q4H PRN PRN (Reason: Wheezing) Qty: 1 RF: 0 fluticasone furoate-vilanterol 1 EACH blister with device 1 ea IH DAILY RF: 0 albuterol sulfate 2.5 MG/3 ML solution for nebulization 2.5 mg inhalation Q4H PRN PRN (Reason: Sob &/Or Wheezing) RF: 0 pantoprazole 40 MG tablet 40 mg PO DAILY RF: 0 pimecrolimus 30 GM cream 30 gm TP BID RF: 0 clobetasol-emollient 15 GM cream 15 gm TP BID RF: 0 cetirizine 10 MG capsule 10 mg PO DAILY Qty: 14 RF: 0 amoxicillin-pot clavulanate 875 MG tablet 875 mg PO Q12H Qty: 14 RF: 0 Primary Care Provider: Jethro Goel Referrals: Jethro Goel [Primary Care Provider] -
== END 2021-01-08 21:35 | disposition home or self-care (01) ==
LOC: ED 21:18
PROVIDERS: Emergency Provider Emergency Medicine; PCP Student in an Organized Health Care Education/Training Program
DX: L20.9 Atopic dermatitis, unspecified (principal); E66.9 Obesity, unspecified; Z87.891 Personal history of nicotine dependence
CPT/HCPCS: 99282

== ENCOUNTER → 2021-01-24 15:05 | Outpatient (CLI) | payer MEDICARE, MEDICAID, SELFPAY ==
[2021-01-08 20:34] VITALS: BMI 25.8
[2021-01-24 17:36] LABS: Absolute Lymphocyte Count 0.95 X10^3/uL (0.83-4.51); Absolute Neutrophil Count 4.9 X10^3/uL (2.0-7.7); Basophil# 0.06 X10^3/uL; Basophil% 0.9 % (0-1); Eosinophil# 0.15 X10^3/uL; Eosinophils% 2.3 % (0-5); Hematocrit 28.2 % (37-47); Hemoglobin 8.2 g/dL (12.0-15.0); Lymphocyte # 0.95 X10^3/ul (0.83-4.51); Lymphocyte % 14.4 % (19-41); Mean Corp Hgb Conc 29.1 g/dL (32-36); Mean Corpuscular Hgb 22.7 pg (27.0-32.0); Mean Corpuscular Volume 77.9 fL (81-99); Mean Platelet Vol. 10.8 fl (6.2-12.0); Monocyte# 0.51 X10^3/uL; Monocyte% 7.7 % (0-10); NRBC Flagged by Analyzer 0 % (0-5); Neutrophil # 4.92 X10^3/uL (2.7-7.7); Neutrophil % 74.4 % (47-70); Platelet Count 393 K/mm3 (150-450); RBC Distribution Width CV 19.7 % (11.6-14.6); RBC Distribution Width SD 54.8 fl (35.1-43.9); Red Blood Count 3.62 M/mm3 (4.2-5.4); White Blood Count 6.6 K/mm3 (4.4-11.0)
[2021-01-24 18:10] LABS: AST(SGOT) 40 U/L (15-37); Alanine Aminotransfer ALT/SGPT 25 U/L (13-56); Albumin, Serum 3.5 g/dL (3.2-5.0); Alkaline Phosphatase 96 U/L (45-117); Anion Gap 7 (5-15); BUN 16 mg/dL (7-18); BUN/Creat Ratio 10.3 RATIO (10-20); Calcium,Total 9.5 mg/dL (8.5-10.1); Chloride 108 mmol/L (98-107); Creatinine, Serum 1.56 mg/dL (0.55-1.02); EST Glomerular Filtration Rate 34 mL/min (>60); Est Glom Filt Rate - Afr Amer 41 mL/min (>60); Globulin 4.3 g/dL (2.2-4.2); Glucose 101 mg/dL (74-106); Potassium 3.6 mmol/L (3.5-5.1); Protein, Total 7.8 g/dL (6.4-8.2); Sodium Level 141 mmol/L (136-145)
[2021-01-31 09:36] LABS: Immunoglobulin A 241 mg/dL (64-422); Immunoglobulin G 1166 mg/dL (586-1602); Immunoglobulin M 182 mg/dL (26-217); PROEL- A/G Ratio 0.8 (0.7-1.7); PROEL- Albumin 3.2 g/dL (2.9-4.4); PROEL- Alpha-1 Globulin 0.2 g/dL (0.0-0.4); PROEL- Beta Globulin 1.2 g/dL (0.7-1.3); PROEL- Gamma Globulin 1.3 g/dL (0.4-1.8); PROEL- Globulin, Total 3.8 g/dL (2.2-3.9)
[2021-01-31 11:13] LABS: Immunoglobulin E 11 IU/mL (6-495)
== END ==
PROVIDERS: PCP Student in an Organized Health Care Education/Training Program; Referring Provider Dermatology; Visit Provider Dermatology
DX: L29.8 Other pruritus (principal); L28.1 Prurigo nodularis; L20.89 Other atopic dermatitis
CPT/HCPCS: 36415; 80048; 80076; 82784; 82785; 84165; 85025

== ENCOUNTER 2021-03-11 19:17 | Emergency (ER) | payer MEDICARE, MEDICAID, SELFPAY ==
[2021-03-11 19:18] VITALS: BP 149/85; PULSE 87; RESP 14; TEMP 36.6; O2SAT 96; BMI 23.4
[2021-03-11] MEDS: predniSONE 20 MG Tablet 60 MG PO (20:30)
[2021-03-11 20:39] VITALS: RESP 18
--- NOTE | 2021-03-11 21:08 | EX.ED.DYSGE1 ---
HPI History of Present Illness Chief Complaint: Itching Narrative Narrative: 85-year-old female presenting with diffuse itchy rash. She states has been treated for atopic dermatitis by [facility] and the treatment is not helping. She has topical steroids. She states she has these on her extremities trunk and back as well as her legs. She has been scratching at them. She has Vistaril as well which is not helping. Patient states that she recently was referred to the [facility] to have her blood checked as well as a lump that she has in her throat. She states she has no difficulty breathing or swallowing. Has no fevers or chills. No dental pain. [facility] Medical History Anemia Anxiety Bronchiectasis Chronic renal failure, stage 3 (moderate) CVA (cerebral vascular accident) Disorder of bone and cartilage Diverticula of colon Dysmetabolic syndrome Fatigue GERD (gastroesophageal reflux disease) HLD (hyperlipidemia) HTN (hypertension) Hypercholesteremia Hypertrophy of nasal turbinates Lichen sclerosus Multiple pulmonary nodules Obesity Osteopenia Pneumonia Seborrheic keratoses Tobacco abuse Urinary, incontinence, stress female Vitamin B12 deficiency Vitamin D deficiency Home Medications albuterol sulfate 1 - 2 puff INHALATION Q4H PRN PRN #1 inhaler 11/28/17 [Rx Last Taken 09/01/19] fluticasone furoate-vilanterol 1 ea IH DAILY 02/11/18 [History Last Taken 09/01/19] albuterol sulfate 2.5 mg INHALATION Q4H PRN PRN 03/12/20 [History Last Taken Unknown] pantoprazole 40 mg PO DAILY 07/30/20 [History Last Taken 08/20/20] cetirizine 10 mg PO DAILY #14 capsule 11/30/20 [Rx Last Taken Unknown] clobetasol-emollient 15 gm TP BID 11/30/20 [History Last Taken Unknown] pimecrolimus 30 gm TP BID 11/30/20 [History Last Taken Unknown] amoxicillin-pot clavulanate 875 mg PO Q12H #14 tab 12/23/20 [Rx Last Taken Unknown] hydroxyzine pamoate [Vistaril] 25 mg PO QHS PRN #10 cap 01/08/21 [Rx Last Taken Unknown] permethrin 1 applic TOPICAL Q14D #60 g 03/11/21 [Rx Last Taken Unknown] prednisone 10 mg PO UD #33 tab 03/11/21 [Rx Last Taken Unknown] Allergy/AdvReac Type Severity Reaction Status Date / Time lisinopril AdvReac Swelling Verified 03/11/21 19:18 Social History Smoking Status: Former smoker ROS ROS ED Constitutional Constitutional ED: Denies chills or fever(s) Eyes Eyes: Denies change in vision ENT ENT ED: Reports other Details: Lump under left mandible ; Denies rhinorrhea or sore throat Cardiovascular Cardiovascular: Denies chest pain or palpitations Respiratory/Chest Respiratory/Chest: Denies cough or dyspnea Gastrointestinal Gastrointestinal: Denies abdominal pain, nausea or vomiting Genitourinary Genitourinary ED: Denies dysuria or hematuria Musculoskeletal Musculoskeletal: Denies arthralgias or myalgias Integumentary Reports rash Neurologic Neurologic: Denies headache(s) or paresthesias EXAM Physical Exam Const Vital Signs: 03/11/21 19:18 03/11/21 20:39 Temperature 97.9 F Temperature Source Temporal Pulse Rate 87 Respiratory Rate 14 18 Blood Pressure 149/85 H Blood Pressure Mean 106 Pulse Ox 96 Oxygen Delivery Method Room Air Positive well nourished General Appearance ED: NAD HEENT Reports moist mucous membranes HEENT Narrative: Lump under left mandible which is not tender to palpation. No stridor is noted on exam. Patient tolerating her own secretions. It does not appear fluctuant. Negative for trauma Eyes PERRL and EOMs intact bilaterally Neck no lymphadenopathy and supple Resp normal respiratory effort and clear to auscultation bilaterally Cardio regular rate and regular rhythm Neuro oriented x3 and CN's II-XII intact bilaterally Sensorium / Orientation: alert Psych mental status grossly normal Skin Skin Narrative: Patient has rash on extremities back and torso with small red bumps which appears in some places to be blisters most consistent with a scabies type rash there are excoriations where she has been scratching. There is no cellulitic changes. Rashes: rashes noted MDM MDM MDM Narrative Medical decision making narrative: I feel that the patient's physical exam is most consistent with scabies. I will put her on permethrin cream. She was given prednisone for the itching. Patient does have a small lump under left mandible and currently has follow-up in 2 days with heme oncology and I feel that she does not have any emergent need for lab work and imaging at this time. She has had no airway issues or swallowing issues. She does not have any pain. Patient counseled to continue follow-up with heme oncology. Impression: 1. Left jaw mass 2. Scabies Discharge Plan Triage Chief Complaint: Itching ED Provider: Ty Hubbard Dx/Rx/DC Orders Instructions: Scabies Prescriptions: New permethrin 5 % cream 1 applic topical Q14D Qty: 60 RF: 0 prednisone 10 mg tablet 10 mg PO UD Qty: 33 RF: 0 No Action albuterol sulfate 1 INHALER inhaler 1 - 2 puff INHALATION Q4H PRN PRN (Reason: Wheezing) Qty: 1 RF: 0 fluticasone furoate-vilanterol 1 EACH blister with device 1 ea IH DAILY RF: 0 albuterol sulfate 2.5 MG/3 ML solution for nebulization 2.5 mg inhalation Q4H PRN PRN (Reason: Sob &/Or Wheezing) RF: 0 pantoprazole 40 MG tablet 40 mg PO DAILY RF: 0 pimecrolimus 30 GM cream 30 gm TP BID RF: 0 clobetasol-emollient 15 GM cream 15 gm TP BID RF: 0 cetirizine 10 MG capsule 10 mg PO DAILY Qty: 14 RF: 0 amoxicillin-pot clavulanate 875 MG tablet 875 mg PO Q12H Qty: 14 RF: 0 hydroxyzine pamoate [Vistaril] 25 mg capsule 25 mg PO QHS PRN (Reason: itching) Qty: 10 RF: 0 Primary Care Provider: Jethro Goel Referrals: Jethro Goel [Primary Care Provider] - Disposition Disposition: Home, Self Care Discharge Date/Time: 03/11/21 20:39
== END 2021-03-11 20:39 | disposition home or self-care (01) ==
LOC: ED 20:26
PROVIDERS: Emergency Provider Student in an Organized Health Care Education/Training Program; PCP Student in an Organized Health Care Education/Training Program
DX: R22.0 Localized swelling, mass and lump, head (principal); B86 Scabies
CPT/HCPCS: 99282

== ENCOUNTER → 2021-05-02 15:42 | Outpatient (CLI) | payer MEDICARE, MEDICAID, SELFPAY ==
[2021-05-02 17:02] LABS: Absolute Lymphocyte Count 1.02 X10^3/uL (0.83-4.51); Absolute Neutrophil Count 4.9 X10^3/uL (2.0-7.7); Basophil# 0.07 X10^3/uL; Basophil% 1.1 % (0-1); Eosinophil# 0.19 X10^3/uL; Eosinophils% 2.9 % (0-5); Hematocrit 40.6 % (37-47); Hemoglobin 12.3 g/dL (12.0-15.0); Lymphocyte # 1.02 X10^3/ul (0.83-4.51); Lymphocyte % 15.4 % (19-41); Mean Corp Hgb Conc 30.3 g/dL (32-36); Mean Corpuscular Hgb 28.2 pg (27.0-32.0); Mean Corpuscular Volume 93.1 fL (81-99); Mean Platelet Vol. 10.6 fl (6.2-12.0); Monocyte# 0.44 X10^3/uL; Monocyte% 6.6 % (0-10); NRBC Flagged by Analyzer 0 % (0-5); Neutrophil # 4.91 X10^3/uL (2.7-7.7); Neutrophil % 73.8 % (47-70); POSITIVE MORPHOLOGY YES; Platelet Count 283 K/mm3 (150-450); RBC Distribution Width CV 22.1 % (11.6-14.6); RBC Distribution Width SD 74.4 fl (35.1-43.9); Red Blood Count 4.36 M/mm3 (4.2-5.4); White Blood Count 6.6 K/mm3 (4.4-11.0)
[2021-05-02 17:04] LABS: Differential Indicated SCAN CRITERIA MET
[2021-05-02 17:26] LABS: Anisocytosis 1+; Differential Comment SCANNED
[2021-05-02 17:41] LABS: ALB/GLOB Ratio 0.9 RATIO (0.9-2.4); AST(SGOT) 27 U/L (15-37); Alanine Aminotransfer ALT/SGPT 24 U/L (13-56); Albumin, Serum 3.7 g/dL (3.2-5.0); Alkaline Phosphatase 88 U/L (45-117); Anion Gap 5 (5-15); BUN 15 mg/dL (7-18); BUN/Creat Ratio 11.2 RATIO (10-20); Calcium,Total 9.5 mg/dL (8.5-10.1); Chloride 109 mmol/L (98-107); Creatinine, Serum 1.34 mg/dL (0.55-1.02); EST Glomerular Filtration Rate 40 mL/min (>60); Est Glom Filt Rate - Afr Amer 48 mL/min (>60); Globulin 4.3 g/dL (2.2-4.2); Glucose 91 mg/dL (74-106); Potassium 3.9 mmol/L (3.5-5.1); Sodium Level 142 mmol/L (136-145); Thyroid Stim Hormone (TSH) 1.23 uIU/mL (0.358-3.74)
[2021-05-03 09:36] LABS: Syphilis Antibodies Non-reactive; Vitamin B12 279 pg/mL (211-911); Vitamin D,25 Hydroxy 31.5 ng/mL
== END ==
PROVIDERS: PCP Student in an Organized Health Care Education/Training Program; Referring Provider Family Medicine Geriatric Medicine; Visit Provider Family Medicine Geriatric Medicine
DX: E55.9 Vitamin D deficiency, unspecified (principal); N39.0 Urinary tract infection, site not specified; R53.83 Other fatigue; Z13.89 Encounter for screening for other disorder
CPT/HCPCS: 36415; 80053; 82306; 82607; 82746; 84443; 85025; 86780; 87077; 87086; 87088; 87186

== ENCOUNTER → 2021-05-12 10:56 | Outpatient (CLI) | payer MEDICARE, MEDICAID, SELFPAY ==
[2021-05-12 12:25] LABS: Hematocrit 38.7 % (37-47); Mean Corpuscular Hgb 29.2 pg (27.0-32.0); Mean Corpuscular Volume 94.2 fL (81-99); Mean Platelet Vol. 11.1 fl (6.2-12.0); POSITIVE MORPHOLOGY YES; Platelet Count 264 K/mm3 (150-450); RBC Distribution Width CV 20.3 % (11.6-14.6); Red Blood Count 4.11 M/mm3 (4.2-5.4); White Blood Count 5.6 K/mm3 (4.4-11.0)
[2021-05-12 12:34] LABS: Albumin, Serum 3.4 g/dL (3.2-5.0); BUN 14 mg/dL (7-18); BUN/Creat Ratio 11.4 RATIO (10-20); Calcium,Total 9.3 mg/dL (8.5-10.1); Chloride 110 mmol/L (98-107); Creatinine, Serum 1.23 mg/dL (0.55-1.02); EST Glomerular Filtration Rate 44 mL/min (>60); Est Glom Filt Rate - Afr Amer 53 mL/min (>60); Glucose 104 mg/dL (74-106); Phosphorus 3.3 mg/dL (2.5-4.9); Potassium 4.2 mmol/L (3.5-5.1); Sodium Level 142 mmol/L (136-145)
[2021-05-12 12:38] LABS: Homocysteine 19.3 umol/L (3.2-10.7)
[2021-05-12 13:04] LABS: Scan Indicated on CBC? Y/N YES- FLAGS NOTED
== END ==
PROVIDERS: PCP Family Medicine Geriatric Medicine; Referring Provider Internal Medicine Nephrology; Visit Provider Internal Medicine Nephrology
DX: N18.32 Chronic kidney disease, stage 3b (principal); D50.9 Iron deficiency anemia, unspecified; E53.8 Deficiency of other specified B group vitamins; E78.5 Hyperlipidemia, unspecified
CPT/HCPCS: 36415; 80069; 83090; 85027

== ENCOUNTER → 2021-05-16 08:03 | Outpatient (CLI) | payer MEDICARE, MEDICAID, SELFPAY ==
--- NOTE | 2021-05-16 08:05 | CT_ITS ---
STUDY: LOW DOSE CT LUNG CANCER SCREENING REASON FOR EXAM: Female, 86 years old. Prior smoker. Patient smoked 1 pack per day for 60 years. RADIATION DOSAGE (If Supplied By Facility): CTDIvol = ( 2.01 ) mGy, DLP = ( 63.44 ) mGycm TECHNIQUE: No contrast was administered. Low dose technique was utilized (average mAS-38 and kVp 120). 1.25 mm axial source images with a slice interval of 1.25-mm were reconstructed in lung windows. 2.5 mm axial source images with a slice interval of 2.5-mm were reconstructed in lung windows. 5.0 mm axial source images with a slice interval of 5.0-mm were reconstructed in soft tissue windows. Nodule measured using lung windows on PACS and/or independent workstation with automated measurement of minimum and maximum diameter. Nodule measurement reported as average diameter rounded to the nearest whole number. Growth is defined as an increase ins size of greater than 1.5 mm. COMPARISON: Comparison is made with prior examination dated 08/21/2020. NODULES: Stable 7.5 mm well-defined nodule in the anterior aspect of the left lower lobe adjacent to the left cardiac border. Emphysema: Mild increased linear markings in the medial aspect of the right middle lobe suggestive of scarring. Focal scarring in the anterior medial aspect of the lingular segment of the left upper lobe. Endobronchial lesion: None Aorta: Atherosclerotic plaque formation of the aortic arch. Coronary arteries: Coronary artery calcification. Heart: Unremarkable Pulmonary artery: Unremarkable Mediastinal nodes: Other chest and abdominal findings: Moderate sized hiatal hernia. CT/Low Dose CT Lung Screening IMPRESSION: Lung-RADS category 2 - Continue annual screening with LDCT in 12 months. IMPORTANT NOTES FOR USE: ACR Lung-RADS Version 1.1 Assessment Categories Release Date: 2018 Category: Coded 0-4 bases on nodule(s) with highest degree of suspicion. Negative screen is defined as categories 1 and 2; a positive screen is defined as categories 3 and 4. Category 3 and 4A nodules that are unchanged on interval CT should be coded as category 2, and individuals returned to screening in 12 months. Category 4X: Category 3 or 4 nodules with additional imaging findings that increase the suspicion of lung cancer, such as spiculation, GGN that doubles in size in 1 year, enlarged lymph notes, etc. Category Modifiers: S (significant finding unrelated to lung cancer) Electronically Signed: Kyle Stevens MD at 13:16 EDT , Service support ,
== END ==
PROVIDERS: PCP Family Medicine Geriatric Medicine; Visit Provider Family Medicine Geriatric Medicine
DX: Z13.89 Encounter for screening for other disorder (principal); Z87.891 Personal history of nicotine dependence
CPT/HCPCS: 71271

== ENCOUNTER → 2021-07-04 10:44 | Outpatient (CLI) | payer MEDICARE, MEDICAID, SELFPAY ==
[2021-07-04 12:15] LABS: Absolute Lymphocyte Count 0.57 X10^3/uL (0.83-4.51); Basophil# 0.04 X10^3/uL; Basophil% 0.8 % (0-1); Eosinophil# 0.11 X10^3/uL; Eosinophils% 2.1 % (0-5); Hematocrit 34.9 % (37-47); Hemoglobin 11.3 g/dL (12.0-15.0); Lymphocyte # 0.57 X10^3/ul (0.83-4.51); Lymphocyte % 10.9 % (19-41); Mean Corp Hgb Conc 32.4 g/dL (32-36); Mean Corpuscular Hgb 30.8 pg (27.0-32.0); Mean Corpuscular Volume 95.1 fL (81-99); Monocyte# 0.46 X10^3/uL; Monocyte% 8.8 % (0-10); NRBC Flagged by Analyzer 0 % (0-5); Neutrophil # 4.03 X10^3/uL (2.7-7.7); Neutrophil % 77.2 % (47-70); POSITIVE DIFFERENTIAL YES; Platelet Count 306 K/mm3 (150-450); RBC Distribution Width CV 14.6 % (11.6-14.6); RBC Distribution Width SD 50.9 fl (35.1-43.9); Red Blood Count 3.67 M/mm3 (4.2-5.4); White Blood Count 5.2 K/mm3 (4.4-11.0)
[2021-07-04 12:20] LABS: Differential Indicated SCAN CRITERIA MET
[2021-07-04 12:34] LABS: ALB/GLOB Ratio 0.7 RATIO (0.9-2.4); AST(SGOT) 30 U/L (15-37); Alanine Aminotransfer ALT/SGPT 19 U/L (13-56); Albumin, Serum 3.1 g/dL (3.2-5.0); Alkaline Phosphatase 98 U/L (45-117); Anion Gap 7 (5-15); BUN 16 mg/dL (7-18); BUN/Creat Ratio 12.5 RATIO (10-20); Calcium,Total 9.4 mg/dL (8.5-10.1); Chloride 106 mmol/L (98-107); Creatinine, Serum 1.28 mg/dL (0.55-1.02); EST Glomerular Filtration Rate 42 mL/min (>60); Est Glom Filt Rate - Afr Amer 51 mL/min (>60); Globulin 4.6 g/dL (2.2-4.2); Glucose 96 mg/dL (74-106); Potassium 4.3 mmol/L (3.5-5.1); Protein, Total 7.7 g/dL (6.4-8.2); Sodium Level 139 mmol/L (136-145); Thyroid Stim Hormone (TSH) 1.05 uIU/mL (0.358-3.74)
== END ==
PROVIDERS: PCP Family Medicine Geriatric Medicine; Visit Provider Family Medicine Geriatric Medicine
DX: K92.1 Melena (principal); R53.83 Other fatigue
CPT/HCPCS: 36415; 80053; 82274; 84443; 85025

== ENCOUNTER → 2021-07-04 10:53 | Outpatient (CLI) | payer MEDICARE, MEDICAID, SELFPAY ==
--- NOTE | 2021-07-04 10:57 | RAD_ITS ---
STUDY: X-RAY - LUMBAR SPINE REASON FOR EXAM: Female, 86 years old. Low back pain TECHNIQUE: 3 view(s) of the lumbar spine were obtained. COMPARISON: None FINDINGS: Normal lumbar lordosis. There is no substantial scoliosis. There is a normal alignment of the vertebrae from L1 to L4. There is a grade 1 spondylolisthesis at L4-5.. There is multilevel endplate spondylosis of the lumbar vertebrae. There is multi-level degenerative disc disease with multi-level disc space narrowing. There is no demonstrated acute fracture, there is a chronic compression fracture affecting the superior endplate of L3. There is atherosclerotic calcification of the abdominal aorta without a demonstrated aneurysm. RAD/Lumbar Spine 2 or 3 Views IMPRESSION: Degenerative changes of the spine, as detailed above. Grade 1 spondylolisthesis at L4-5 Chronic compression fracture affecting the superior endplate of L3 Electronically Signed: Dileep Arriaza MD at 11:48 EDT , Service support ,
--- NOTE | 2021-07-04 10:58 | VDLE_ITS ---
Reason For Study: edema Procedure LEFT This is a venous duplex using B-mode, color GSV is normal. flow and spectral Doppler. CFV is compressible, spontaneous, phasic, Exam performed in department. competent, and demonstrates normal The exam was abbreviated due to the COVID 19 augmentation. protocol. FV is compressible, spontaneous, phasic, The exam was diagnostic. competent and demonstrates normal A preliminary report was called and/or faxed augmentation. to Dr. Lynn. POP V is compressible, spontaneous, phasic, competent and demonstrates normal augmentation. T/P Trunk is compressible. PTV is compressible. LT PerV is compressible. VL/Venous Duplex US, Unilateral Interpretation Summary Deep veins of the left lower extremity are patent and compressible segmentally. There is no evidence of left lower extremity deep vein thrombosis. Valvular competence appears intac t within the proximal deep venous system on the left . The left great saphenous vein appears patent a nd compressible segmentally. Ordering Physician: Arnulfo Lynn Performed By: Haja Moreno RVT
== END ==
LOC: CVS 10:56
PROVIDERS: PCP Family Medicine Geriatric Medicine; Referring Provider Family Medicine Geriatric Medicine; Visit Provider Family Medicine Geriatric Medicine
DX: R60.0 Localized edema (principal); M54.50 Low back pain, unspecified; K92.1 Melena; R53.83 Other fatigue
CPT/HCPCS: 36415; 72100; 80053; 82274; 84443; 85025; 93971

== ENCOUNTER → 2021-07-05 10:05 | Outpatient (CLI) | payer MEDICARE, MEDICAID, SELFPAY ==
[2021-07-05 12:26] LABS: Platelet Count 331 K/mm3 (150-450); Reticulocyte Count 1.35 % (0.5-1.5)
[2021-07-05 12:33] LABS: Ferritin 33 ng/mL (8-252); Iron 101 ug/dL (50-170); Iron Binding Capacity,Total 299 ug/dL (250-450); PERCENT IRON SATURATION 33.8 % (15.0-55.0)
[2021-07-05 13:05] LABS: Vitamin B12 > 2000 pg/mL (211-911)
[2021-07-06 15:08] LABS: Folate, RBC (Hct) Test 33.5 % (34.0-46.6)
[2021-07-07 08:19] LABS: Folates, RBC Test 937 ng/mL (>498)
== END ==
PROVIDERS: PCP Family Medicine Geriatric Medicine; Referring Provider Family Medicine Geriatric Medicine; Visit Provider Family Medicine Geriatric Medicine
DX: D64.9 Anemia, unspecified (principal)
CPT/HCPCS: 36415; 82607; 82728; 82747; 83540; 83550; 85014; 85045

== ENCOUNTER 2021-07-13 05:52 | Emergency (ER) | payer MEDICARE, MEDICAID, SELFPAY ==
[2021-07-13 05:55] VITALS: BP 162/85; PULSE 77; RESP 24; TEMP 36.7; O2SAT 99; BMI 23.3
--- NOTE | 2021-07-13 06:15 | EKG12_ITS ---
Test Reason : Blood Pressure : / mmHG Vent. Rate : 067 BPM Atrial Rate : 067 BPM P-R Int : 152 ms QRS Dur : 082 ms QT Int : 426 ms P-R-T Axes : 063 -12 029 degrees QTc Int : 450 ms Normal sinus rhythm with sinus arrhythmia Normal ECG Confirmed by REBA BARLOW, ENEIDA ([id number]), manuscript editor FLORENTIN MORLEY ([id number]) on 07/14/2021 6:55:27 AM Referred By: ROQUE Confirmed By:ENEIDA BRITTON MD
--- NOTE | 2021-07-13 06:17 | RAD_ITS ---
STUDY: X-RAY - ACUTE ABDOMINAL SERIES REASON FOR EXAM: Female, 86 years old. Constipation, dyspnea TECHNIQUE: Single view of the chest. Supine, erect, and decubitus view(s) of the abdomen were obtained. COMPARISON: None. FINDINGS: The lungs are clear and expanded. There is a hypervascular hernia measures approximately 9 cm in diameter. Normal size heart. Normal mediastinum and rasheed. Normal visualized pulmonary arteries. Normal visualized aortic arch and descending thoracic aorta. There is an abundance of fecal material throughout the colon. The soft tissue structures of the abdomen and pelvis are unremarkable. There are diffuse degenerative changes of the visualized lumbar spine. RAD/Acute Abdomen Inc Chest IMPRESSION: There is an abundance of fecal material throughout the colon. Electronically Signed: Ravin Horne MD at 7:21 EST Tel , Service support ,
[2021-07-13] MEDS: Ipratropium/Albuterol Sulfate 3 ML AMPUL.NEB INHALATION (06:23)
--- NOTE | 2021-07-13 06:29 | EDS_ITS ---
HPI History of Present Illness Chief Complaint: Shortness of Breath Informant: patient Narrative Narrative: Patient is a somewhat nonspecific informant. Her story changes a bit. The below summation is the best and most consistent that I can get. Patient states that she started getting more short of breath last evening. She evidently has this problem a lot. It comes and goes. But it seemed to be more. She does not know if she was wheezing more. She is not sure if this is her COPD or her asthma but she thinks it might be her asthma. No sputum production. She has never had chest pain. No hemoptysis. It sounds like she does have nebulizer and meds at home. Patient is also complaining of constipation since she started iron supplements. She is on iron supplements because she has had ongoing anemia. She evidently is having work-up for this. She has had blood and black in her stool in the past but not having it now. No abdominal pain at all. No fevers or chills. Nothing makes her symptoms better or worse. [facility] Medical History (Updated 07/13/21 @ 07:[address] Mike López MD) Anemia Anxiety Bronchiectasis Chronic renal failure, stage 3 (moderate) CVA (cerebral vascular accident) Disorder of bone and cartilage Diverticula of colon Dysmetabolic syndrome Fatigue GERD (gastroesophageal reflux disease) HLD (hyperlipidemia) HTN (hypertension) Hypercholesteremia Hypertrophy of nasal turbinates Lichen sclerosus Multiple pulmonary nodules Obesity Osteopenia Pneumonia Seborrheic keratoses Tobacco abuse Urinary, incontinence, stress female Vitamin B12 deficiency Vitamin D deficiency Home Medications albuterol sulfate 1 - 2 puff INHALATION Q4H PRN PRN #1 inhaler 11/28/17 [Rx Last Taken 09/01/19] fluticasone furoate-vilanterol 1 ea IH DAILY 02/11/18 [History Last Taken 09/01/19] albuterol sulfate 2.5 mg INHALATION Q4H PRN PRN 03/12/20 [History Last Taken Unknown] pantoprazole 40 mg PO DAILY 07/30/20 [History Last Taken 08/20/20] cetirizine 10 mg PO DAILY #14 capsule 11/30/20 [Rx Last Taken Unknown] clobetasol-emollient 15 gm TP BID 11/30/20 [History Last Taken Unknown] pimecrolimus 30 gm TP BID 11/30/20 [History Last Taken Unknown] amoxicillin-pot clavulanate 875 mg PO Q12H #14 tab 12/23/20 [Rx Last Taken Unknown] hydroxyzine pamoate [Vistaril] 25 mg PO QHS PRN #10 cap 01/08/21 [Rx Last Taken Unknown] permethrin 1 applic TOPICAL Q14D #60 g 03/11/21 [Rx Last Taken Unknown] prednisone 10 mg PO UD #33 tab 03/11/21 [Rx Last Taken Unknown] magnesium citrate 300 ml PO .once #296 ml 07/13/21 [Rx Last Taken Unknown] Allergy/AdvReac Type Severity Reaction Status Date / Time lisinopril AdvReac Swelling Verified 03/11/21 19:18 Social History Smoking Status: Former smoker ROS ROS ED Constitutional Constitutional ED: Denies chills or fever(s) Eyes Eyes: Denies blurry vision ENT ENT ED: Reports rhinorrhea; Denies sore throat Cardiovascular Cardiovascular: Denies chest pain Respiratory/Chest Respiratory/Chest: Reports cough and dyspnea; Denies dyspnea on exertion or sputum Gastrointestinal Gastrointestinal: Reports constipation; Denies abdominal pain, diarrhea, nausea or vomiting Genitourinary Genitourinary ED: Denies dysuria or hematuria Musculoskeletal Musculoskeletal: Denies arthralgias or myalgias Integumentary Denies rash Neurologic Neurologic: Denies headache(s) or weakness Psychiatric Psychiatric: Reports anxiety EXAM Physical Exam Const Vital Signs: 07/13/21 05:55 07/13/21 05:59 07/13/21 06:30 Temperature 98.1 F Temperature Source Temporal Pulse Rate 77 65 Respiratory Rate 24 H 20 H Respiratory Effort Normal Respiratory Depth Normal Respiratory Pattern Tachypnea Tachypnea Blood Pressure 162/85 H Blood Pressure Mean 110 Pulse Ox 99 Oxygen Delivery Method Room Air Positive well nourished and well developed Constitutional Narrative: Patient talks continuously and on a rather high rate of speed. No indication of dyspnea on exam. No increased work of breathing. General Appearance ED: well developed and NAD; Negative for cyanotic, diaphoretic or pallor HEENT Reports moist mucous membranes Eyes General Eye ED: Negative for pale conjunctiva or scleral icterus Neck no JVD Resp normal respiratory effort and clear to auscultation bilaterally Effort and Inspection: Negative for pain with movement Auscultation: Negative for rales, rhonchi or wheezes Cardio regular rate and regular rhythm GI normal to inspection, nondistended, normoactive bowel sounds and non-tender Palpation: soft Back/Spine no CVA tenderness Extremity normal to inspection General Extremety ED: Negative for edema or tenderness General Extremity: Negative for edema Neuro Neuro Narrative: Patient is alert and oriented. But she is not the best informant for details. She gets frustrated very easily. Sensorium / Orientation: alert Psych Attitude: agitated Mood & Affect: anxious Skin no rashes or lesions noted and no wounds General Skin Exam: Negative for jaundice or pallor MDM MDM MDM Narrative Medical decision making narrative: Patient's blood work does show some low hemoglobin. She is just starting iron because of this. She is being worked up as an outpatient. Sounds like she has an appointment with her primary physician in less than a week. She has not had an endoscopy yet. Patient's chest x-ray shows no acute disease. Her abdominal films do show significantly increased stool. Patient feels well after breathing treatment. She evidently has these at home. I will give a dose of Decadron. I think she has a component of COPD but also she has a known component of anxiety. She will see her physician this coming week. They are continuing to work-up her recurrent anemia. I will write for some magnesium citrate as she has had constipation and not moving her bowels. We discussed returning if she has worsening dyspnea, fevers, chest pain, abdominal pain, active blood in the stool. Lab Data Attestation: I reviewed the patient's lab results. Labs: Laboratory Results - last 24 hr 07/13/21 07/13/21 06:25 06:25 WBC 5.5 RBC 3.07 L Hgb 9.4 L Hct 29.9 L MCV 97.4 MCH 30.6 MCHC 31.4 L RDW Std Deviation 55.8 H RDW Coeff of Jung 15.8 H Plt Count 308 MPV 9.4 Immature Gran % (Auto) 0.600 Neut % (Auto) 74.9 H Lymph % (Auto) 14.7 L [place] % (Auto) 6.1 Eos % (Auto) 2.8 Baso % (Auto) 0.9 Absolute Neuts (auto) 4.1 Absolute Lymphs (auto) 0.80 L Nucleated RBC % 0 Sodium 142 Potassium 3.8 Chloride 113 H Carbon Dioxide 24.0 Anion Gap 5 BUN 12 Creatinine 1.19 H Estim Creat Clear Calc 33.00 Est GFR (MDRD) Af Amer 55 L Est GFR (MDRD) Non-Af 46 L BUN/Creatinine Ratio 10.1 Glucose 125 H Calcium 8.9 Troponin I High Sens 19 Discharge Plan Triage Chief Complaint: Shortness of Breath ED Provider: Mike López Dx/Rx/DC Orders Clinical Impression: Anxiety, COPD (chronic obstructive pulmonary disease), Constipation Instructions: ED Constipation (Adult), ED COPD Flare Prescriptions: New magnesium citrate Solution 300 ml PO .once Qty: 296 RF: 0 No Action albuterol sulfate 1 INHALER inhaler 1 - 2 puff INHALATION Q4H PRN PRN (Reason: Wheezing) Qty: 1 RF: 0 fluticasone furoate-vilanterol 1 EACH blister with device 1 ea IH DAILY RF: 0 albuterol sulfate 2.5 MG/3 ML solution for nebulization 2.5 mg inhalation Q4H PRN PRN (Reason: Sob &/Or Wheezing) RF: 0 pantoprazole 40 MG tablet 40 mg PO DAILY RF: 0 pimecrolimus 30 GM cream 30 gm TP BID RF: 0 clobetasol-emollient 15 GM cream 15 gm TP BID RF: 0 cetirizine 10 MG capsule 10 mg PO DAILY Qty: 14 RF: 0 amoxicillin-pot clavulanate 875 MG tablet 875 mg PO Q12H Qty: 14 RF: 0 hydroxyzine pamoate [Vistaril] 25 mg capsule 25 mg PO QHS PRN (Reason: itching) Qty: 10 RF: 0 permethrin 5 % cream 1 applic topical Q14D Qty: 60 RF: 0 prednisone 10 mg tablet 10 mg PO UD Qty: 33 RF: 0 Primary Care Provider: Arnulfo Lynn Chi Referrals: Arnulfo Lynn Chi, MD [Primary Care Provider] - As soon as possible Disposition Disposition: Home, Self Care
[2021-07-13 06:30] VITALS: PULSE 65; RESP 20
[2021-07-13 06:31] LABS: Absolute Neutrophil Count 4.1 X10^3/uL (2.0-7.7); Basophil# 0.05 X10^3/uL; Basophil% 0.9 % (0-1); Eosinophil# 0.15 X10^3/uL; Eosinophils% 2.8 % (0-5); Hematocrit 29.9 % (37-47); Hemoglobin 9.4 g/dL (12.0-15.0); Lymphocyte % 14.7 % (19-41); Mean Corp Hgb Conc 31.4 g/dL (32-36); Mean Corpuscular Hgb 30.6 pg (27.0-32.0); Mean Corpuscular Volume 97.4 fL (81-99); Mean Platelet Vol. 9.4 fl (6.2-12.0); Monocyte# 0.33 X10^3/uL; Monocyte% 6.1 % (0-10); NRBC Flagged by Analyzer 0 % (0-5); Neutrophil # 4.09 X10^3/uL (2.7-7.7); Neutrophil % 74.9 % (47-70); Platelet Count 308 K/mm3 (150-450); RBC Distribution Width CV 15.8 % (11.6-14.6); RBC Distribution Width SD 55.8 fl (35.1-43.9); Red Blood Count 3.07 M/mm3 (4.2-5.4); White Blood Count 5.5 K/mm3 (4.4-11.0)
[2021-07-13] MEDS: LORazepam 2 MG/ML Syringe 0.5 MG IV (06:33)
[2021-07-13 06:55] LABS: Anion Gap 5 (5-15); BUN 12 mg/dL (7-18); BUN/Creat Ratio 10.1 RATIO (10-20); Calcium,Total 8.9 mg/dL (8.5-10.1); Chloride 113 mmol/L (98-107); Creatinine, Serum 1.19 mg/dL (0.55-1.02); EST Glomerular Filtration Rate 46 mL/min (>60); Est Glom Filt Rate - Afr Amer 55 mL/min (>60); Glucose 125 mg/dL (74-106); Potassium 3.8 mmol/L (3.5-5.1); Sodium Level 142 mmol/L (136-145); Troponin-I HS 19 pg/mL (3.0-54.0)
[2021-07-13] MEDS: dexAMETHasone 10 MG/ML Vial IV (08:18)
[2021-07-13 08:24] VITALS: BP 149/74; PULSE 65; RESP 20; O2SAT 94
[2021-07-13 08:24] LABS: BNP,B-Type NATRIURETIC PEPTIDE 144.1 pg/mL (0-100)
== END 2021-07-13 08:44 | disposition home or self-care (01) ==
PROVIDERS: Emergency Provider Emergency Medicine; PCP Family Medicine Geriatric Medicine
DX: F41.9 Anxiety disorder, unspecified (principal); J44.9 Chronic obstructive pulmonary disease, unspecified; K59.00 Constipation, unspecified; Z87.891 Personal history of nicotine dependence
CPT/HCPCS: 74022; 80048; 83880; 84484; 85025; 93005; 94640; 96374; 96375; 99285; J7030

== ENCOUNTER → 2021-07-14 10:26 | Outpatient (CLI) | payer MEDICARE, MEDICAID, SELFPAY ==
[2021-07-14 12:56] LABS: Absolute Lymphocyte Count 0.94 X10^3/uL (0.83-4.51); Absolute Neutrophil Count 7.5 X10^3/uL (2.0-7.7); Basophil# 0.03 X10^3/uL; Basophil% 0.3 % (0-1); Eosinophil# 0.14 X10^3/uL; Eosinophils% 1.5 % (0-5); Hematocrit 30.2 % (37-47); Hemoglobin 9.4 g/dL (12.0-15.0); Lymphocyte # 0.94 X10^3/ul (0.83-4.51); Lymphocyte % 10.1 % (19-41); Mean Corp Hgb Conc 31.1 g/dL (32-36); Mean Corpuscular Hgb 30.5 pg (27.0-32.0); Mean Corpuscular Volume 98.1 fL (81-99); Mean Platelet Vol. 11.5 fl (6.2-12.0); Monocyte# 0.65 X10^3/uL; NRBC Flagged by Analyzer 0 % (0-5); Neutrophil # 7.51 X10^3/uL (2.7-7.7); Neutrophil % 80.8 % (47-70); Platelet Count 347 K/mm3 (150-450); RBC Distribution Width CV 16.3 % (11.6-14.6); RBC Distribution Width SD 58.4 fl (35.1-43.9); Red Blood Count 3.08 M/mm3 (4.2-5.4); White Blood Count 9.3 K/mm3 (4.4-11.0)
== END ==
PROVIDERS: PCP Family Medicine Geriatric Medicine; Visit Provider Family Medicine Geriatric Medicine
DX: D64.9 Anemia, unspecified (principal)
CPT/HCPCS: 36415; 85025

== ENCOUNTER → 2021-07-17 11:04 | Outpatient (CLI) | payer MEDICARE, MEDICAID, SELFPAY ==
[2021-07-17 12:36] LABS: Absolute Lymphocyte Count 0.81 X10^3/uL (0.83-4.51); Absolute Neutrophil Count 6.2 X10^3/uL (2.0-7.7); Basophil# 0.03 X10^3/uL; Basophil% 0.4 % (0-1); Eosinophil# 0.15 X10^3/uL; Eosinophils% 1.9 % (0-5); Hematocrit 30.3 % (37-47); Hemoglobin 9.3 g/dL (12.0-15.0); Lymphocyte # 0.81 X10^3/ul (0.83-4.51); Lymphocyte % 10.4 % (19-41); Mean Corp Hgb Conc 30.7 g/dL (32-36); Mean Corpuscular Hgb 30.4 pg (27.0-32.0); Mean Platelet Vol. 11.5 fl (6.2-12.0); Monocyte# 0.57 X10^3/uL; Monocyte% 7.3 % (0-10); NRBC Flagged by Analyzer 0 % (0-5); Neutrophil # 6.19 X10^3/uL (2.7-7.7); Neutrophil % 79.7 % (47-70); Platelet Count 346 K/mm3 (150-450); RBC Distribution Width CV 15.8 % (11.6-14.6); RBC Distribution Width SD 57.2 fl (35.1-43.9); Red Blood Count 3.06 M/mm3 (4.2-5.4); White Blood Count 7.8 K/mm3 (4.4-11.0)
== END ==
PROVIDERS: PCP Family Medicine Geriatric Medicine; Visit Provider Family Medicine Geriatric Medicine
DX: D64.9 Anemia, unspecified (principal)
CPT/HCPCS: 36415; 85025

== ENCOUNTER → 2021-07-20 09:05 | Outpatient (CLI) | payer MEDICARE, MEDICAID, SELFPAY ==
[2021-07-20 12:28] LABS: Absolute Lymphocyte Count 0.75 X10^3/uL (0.83-4.51); Absolute Neutrophil Count 5.6 X10^3/uL (2.0-7.7); Basophil# 0.04 X10^3/uL; Basophil% 0.6 % (0-1); Eosinophil# 0.15 X10^3/uL; Eosinophils% 2.1 % (0-5); Hematocrit 31.2 % (37-47); Hemoglobin 9.7 g/dL (12.0-15.0); Lymphocyte # 0.75 X10^3/ul (0.83-4.51); Lymphocyte % 10.7 % (19-41); Mean Corp Hgb Conc 31.1 g/dL (32-36); Mean Corpuscular Hgb 30.7 pg (27.0-32.0); Mean Corpuscular Volume 98.7 fL (81-99); Monocyte# 0.49 X10^3/uL; NRBC Flagged by Analyzer 0 % (0-5); Neutrophil # 5.57 X10^3/uL (2.7-7.7); Neutrophil % 79.5 % (47-70); Platelet Count 342 K/mm3 (150-450); RBC Distribution Width CV 15.6 % (11.6-14.6); RBC Distribution Width SD 56.8 fl (35.1-43.9); Red Blood Count 3.16 M/mm3 (4.2-5.4)
== END ==
PROVIDERS: PCP Family Medicine Geriatric Medicine; Visit Provider Family Medicine Geriatric Medicine
DX: D64.9 Anemia, unspecified (principal)
CPT/HCPCS: 36415; 85025

== ENCOUNTER → 2021-08-01 07:20 | Outpatient (CLI) | payer MEDICARE, MEDICAID, SELFPAY ==
[2021-08-01 09:53] LABS: Absolute Lymphocyte Count 0.74 X10^3/uL (0.83-4.51); Absolute Neutrophil Count 4.4 X10^3/uL (2.0-7.7); Basophil# 0.06 X10^3/uL; Eosinophil# 0.17 X10^3/uL; Eosinophils% 2.9 % (0-5); Hematocrit 32.6 % (37-47); Hemoglobin 10.2 g/dL (12.0-15.0); Lymphocyte # 0.74 X10^3/ul (0.83-4.51); Lymphocyte % 12.4 % (19-41); Mean Corp Hgb Conc 31.3 g/dL (32-36); Mean Corpuscular Hgb 30.3 pg (27.0-32.0); Mean Corpuscular Volume 96.7 fL (81-99); Mean Platelet Vol. 10.5 fl (6.2-12.0); Monocyte# 0.55 X10^3/uL; Monocyte% 9.2 % (0-10); NRBC Flagged by Analyzer 0 % (0-5); Neutrophil # 4.41 X10^3/uL (2.7-7.7); Neutrophil % 74.2 % (47-70); Platelet Count 286 K/mm3 (150-450); RBC Distribution Width SD 53.5 fl (35.1-43.9); Red Blood Count 3.37 M/mm3 (4.2-5.4)
[2021-08-01 10:08] LABS: Albumin, Serum 3.2 g/dL (3.2-5.0); BUN 13 mg/dL (7-18); BUN/Creat Ratio 9.2 RATIO (10-20); Calcium,Total 9.4 mg/dL (8.5-10.1); Chloride 111 mmol/L (98-107); Creatinine, Serum 1.41 mg/dL (0.55-1.02); EST Glomerular Filtration Rate 38 mL/min (>60); Est Glom Filt Rate - Afr Amer 45 mL/min (>60); Glucose 106 mg/dL (74-106); Phosphorus 3.1 mg/dL (2.5-4.9); Sodium Level 143 mmol/L (136-145)
== END ==
PROVIDERS: PCP Family Medicine Geriatric Medicine; Referring Provider Family Medicine Geriatric Medicine; Visit Provider Family Medicine Geriatric Medicine
DX: D50.9 Iron deficiency anemia, unspecified (principal); N18.32 Chronic kidney disease, stage 3b
CPT/HCPCS: 36415; 80069; 85025

== ENCOUNTER 2021-09-19 06:20 | Day surgery (SDC) | payer MEDICARE, MEDICAID, SELFPAY ==
--- NOTE | 2021-09-19 06:43 | PCM.HP.BLA ---
History and Physical Date of Admission: 09/19/21 Intake Visit Reasons: Upper/Lower Scope/GI Bleed Chief Complaint: scopes Police Records Clerk Required: No Is patient in pain?: No Allergies lisinopril Adverse Reaction (Verified 08/30/21 09:07) Swelling Medications albuterol sulfate 1 - 2 puff INHALATION Q4H PRN PRN #1 inhaler 11/28/17 [Rx Confirmed 08/30/21] fluticasone furoate-vilanterol 1 ea IH DAILY 02/11/18 [History Confirmed 08/30/21] albuterol sulfate 2.5 mg INHALATION Q4H PRN PRN 03/12/20 [History Confirmed 08/30/21] pantoprazole 40 mg PO DAILY 07/30/20 [History Confirmed 08/30/21] cetirizine 10 mg PO DAILY #14 capsule 11/30/20 [Rx Confirmed 08/30/21] clobetasol-emollient 15 gm TP BID 11/30/20 [History Confirmed 08/30/21] pimecrolimus 30 gm TP BID 11/30/20 [History Confirmed 08/30/21] hydroxyzine pamoate [Vistaril] 25 mg PO QHS PRN #10 cap 01/08/21 [Rx Confirmed 08/30/21] permethrin 1 applic TOPICAL Q14D #60 g 03/11/21 [Rx Confirmed 08/30/21] prednisone 10 mg PO UD #33 tab 03/11/21 [Rx Confirmed 08/30/21] magnesium citrate 300 ml PO .once #296 ml 07/13/21 [Rx Confirmed 08/30/21] PFSH Medical History (Updated 08/30/21 @ 09:[address] Obed Eric MD) Anemia Anxiety Bronchiectasis Chronic renal failure, stage 3 (moderate) CVA (cerebral vascular accident) Disorder of bone and cartilage Diverticula of colon Dysmetabolic syndrome Fatigue GERD (gastroesophageal reflux disease) HLD (hyperlipidemia) HTN (hypertension) Hypercholesteremia Hypertrophy of nasal turbinates Lichen sclerosus Multiple pulmonary nodules Obesity Osteopenia Pneumonia Seborrheic keratoses Tobacco abuse Urinary, incontinence, stress female Vitamin B12 deficiency Vitamin D deficiency Surgical History (Updated 08/30/21 @ 09:06 by Ludmila Cat) History of bladder suspension procedure Social History (Updated 08/30/21 @ 09:07 by Ludmila Silverio Smoking Status: Former smoker alcohol intake: never HPI HPI HPI: JAZMINE GONZALEZ, is a 86 F who presents to the office today for surgical consultation regarding anemia. Patient is having trouble with constipation related to iron supplementation. As of 07/13/2021 and an emergency room visit her white blood cell count was 5.5 with a hemoglobin 9.4 and hematocrit of 29.9 and a platelet count of 308,000. MCV was normal at 97.4 MCH was normal at 30.6. At that time BUN is 12 and creatinine 1.19. As of 08/01/2021 her white blood cell count was 6 with a hemoglobin 10.2 hematocrit 32.6 and a platelet count of 286,000. She has been noted to have stool that is Hemoccult positive. She is being referred by Dr. Arnulof Lynn for consideration of esophagogastroduodenoscopy and colonoscopy. A written copy of my surgical consult recommendations will return to him. The patient thinks she has been anemic for quite a period of time. She previously had her care at the [facility]. Apparently she saw Dr.Lapman Peterson there as well. There is concerned because her stool was dark and Hemoccult positive. But she is on iron therapy. She cannot recall with her stools were abnormal prior to initiating the iron. She has no abdominal pain. No nausea or vomiting. No indigestion. She has had weight loss. She states that she thinks she has a good appetite. She does prepare her own meals. ROS General General: No weight change, appetite, fatigue, colon cancer, breast cancer or weakness HEENT HEENT: No difficulty swallowing, eye injury, eye surgery, swollen glands or hoarseness Endo Endocrine: No thyroid disease, diabetes mellitus, thyroid cancer, Hair loss, heat intolerance or cold intolerance Skin Skin: Yes rash; No changing moles Breast Breast: No left breast lump, right breast lump, nipple discharge, breast pain, abnormal mammogram, abnormal US or breast enlargement Musc Musculoskeletal: No back problems, arthritis, rheumatoid arthritis, gout or joint pain Cardio Cardiovascular: No murmur, pacemaker, heart disease, atrial fibrillation, high blood pressure, heart attack, heart stent, palpitations, shortness of breat with exertion or chest pain Psych Psychiatric: No depression, anxiety or hearing voices Resp Respiratory: Yes shortness of breath, No sleep apnea, No cough, Yes COPD, No asthma, No emphysema and No wheezing Gastro Gastrointestinal: No abdominal pain, No nausea or vomiting, No diarrhea, No constipation, Yes blood in stool, No acid reflux, No hemorrhoids, No ulcers, No gallbladder problem and Yes black,tarry stools Benjamin Hematologic: No blood thinners, No blood disorders, No bleeding, Yes anemia and No blood clots Neuro Neurologic: No system reviewed and no additional complaints, except as documented, No as per HPI, No abnormal gait, No abnormal hearing, No abnormal movements, No abnormal speech, No behavioral changes, No burning sensations, No confusion, No convulsions, No disequilibrium, No dizziness, No localized weakness, No frequent falls, No headache(s), No lack of coordination, No loss of vision, No memory loss, No numbness, No other visual disturbances, No radicular pain, No restless legs, No sensory deficit, No syncope, No tingling, No tremor(s), No weakness and No other Exam Const General: cooperative, healthy appearing, comfortable and no acute distress Nutritional Appearance: average body habitus Orientation: alert and awake [facility] Head: normal to inspection Neck Neck: normal visual inspection Chest Chest palpation & inspection: normal inspection of the chest Resp Effort & Inspection: normal respiratory effort Auscultation: clear to auscultation bilaterally Cardio Rate: regular rate Rhythm: regular rhythm GI Palpation: soft and no hepatosplenomegaly Auscultation: normal bowel sounds Musc Cervical Spine: normal cervical lordosis Skin General: no rashes or lesions noted Neuro General: patient alert and patient awake Extrem General: no calf tenderness Psych Appearance: grossly normal Assessment and Plan Assessment and Plan (1) Chronic anemia: Status: Chronic Plan - Dr. Obed Eric MD: Chronic anemia with recent acute exacerbation. The patient over period of time has required previous blood transfusions. She complains of dark stools which are Hemoccult positive. I propose for her a combined esophagogastroduodenoscopy with possible biopsy and colonoscopy with possible biopsy or polypectomy as indicated. She is aware of technique, benefit, risk, alternatives. She has had an opportunity to ask and have questions answered. She is . She is accompanied by her daughter today. She has had an opportunity ask no questions answered. We will schedule procedure discretion. Anticipate monitored anesthesia care. The patient may require repeat future hematology consultation if the endoscopic evaluations are unremarkable. Copy: Dr. Arnulfo Eric M.D., F.A.C.S. Coding Level of Care Code 08752 Diagnoses Chronic anemia D64.9 08/30/21 0931<Electronically signed by Obed Eric MD>Date Obed Eric MD I have re-examined the patient. There are no clinical changes since date of exam.
[2021-09-19 07:02] VITALS: BP 160/89; PULSE 76; RESP 16; TEMP 36.7; O2SAT 97; BMI 24.2
[2021-09-19] MEDS: Lactated Ringers 1,000 ML 15 ML IV (07:13)
--- NOTE | 2021-09-19 07:30 | IMM_PTH ---
PATIENT: JAZMINE GONZALEZ LOC: [facility] U#:[id number] AGE/SX: 86/F ROOM: RE09/19/[address]: Dr. Obed Eric MD : 1935 BED: DIS: 09/19/2021 SPEC #: [id number] RECD: 09/19/21 12:54 STATUS: ROMEL REZaki #: [id number] XIOMARA: 09/19/21 07:[address]: Obed Eric DEPT: IMMUNOHISTOCHEMISTRY RECD BY: Cydney Roberson ENTERED: 09/19/21 12:54 SP TYPE: IMMUNO OTHR DR: Arnulfo Lynn MD Tissues: B - Stomach, NOS C - Gastric mucous membrane Procedures: H Pylori (initial) P53 (initial) KI-67 (add) PHYSICIAN & INSTITUTION [place] [id number] SPECIMEN INFORMATION: Tissue Source: B ? Antrum biopsy, C ? GE junction biopsy Clinical Info: Chronic anemia Specimen Number: [id number] B & C CPT code: 39225 x2, 23169 METHODOLOGY: Deparaffinized sections of prefer/formalin-fixed tissue or PAP/DQ stained slides are incubated with monoclonal/polyclonal antibodies/oligonucleotide probes. Localization is made via biotin free immunoperoxidase method. Appropriate controls are performed and reacted as expected. Results on target cell population are indicated in the following table: RESULTS: ANTIBODY / CLONE RESULT Block B H Pylori (polyclonal) positive Block C P53 (DO-7) negative Ki-67 (30-9) positive, low These tests were developed and their performance characteristics determined by [facility]. They may not have been cleared or approved by the U.S. Food and Drug Administration. The FDA has determined that such clearance or approval is not necessary. The above immunohistochemical/dualISH markers are ordered and reviewed by the pathologist. INTERPRETATION: B. Antrum, biopsy: Positive for abundant Helicobacter pylori organisms. C. GE junction, biopsy: No evidence of dysplasia. AM:jose f 09/21/2021
--- NOTE | 2021-09-19 07:30 | EGD_PTH ---
PATIENT: JAZMINE GONZALEZ LOC: EN U#:[id number] AGE/SX: 86/F ROOM: RE09/19/[address]: Dr. Obed Eric MD : 1935 BED: DIS: 09/19/2021 SPEC #: [id number] RECD: 09/19/21 11:14 STATUS: ROMEL CANALES #: [id number] XIOMARA: 09/19/21 07:[address]: Obed Eric DEPT: SURGICAL PATHOLOGY RECD BY: Rylie Segura ENTERED: 09/19/21 12:45 SP TYPE: EGD BIOPSY OTHR DR: Arnulfo Lynn MD Tissues: A - Duodenum, NOS B - Gastric mucous membrane C - Stomach, NOS Procedures: Special Stain Group II Surgery Specimen Level IV Alcian Blue/PAS (control) HEADER OPERATION: Colonoscopy, EGD ([facility]) PRE-OP DIAGNOSIS: Chronic anemia TISSUE SUBMITTED: A ? Duodenum ulcer biopsy, B ? Antrum biopsy for histo and H. pylori, C ? GE junction biopsy MICROSCOPIC DIAGNOSIS A. Duodenal ulcer, biopsy: Fragments of gastric mucosa with mild acute and chronic inflammation. See comment. B. Gastric antrum, biopsy: Chronic gastritis, moderate to severe. See comment. C. 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 No evidence of dysplasia. Junctional mucosa with chronic inflammation. See comment. AM:jose f 09/20/2021 COMMENT A. The lesion may represent focal subgastric metaplasia. Clinical correlation is suggested. B. The results of immunohistochemistry for Helicobacter pylori will be reported separately ([id number]). C. Alcian blue/PAS stain with matched control supports the above diagnosis. Immunohistochemistry ([id number]) for P53 and Ki-67 will be performed and results will be reported separately. MICROSCOPIC DESCRIPTION Slides are reviewed. GROSS DESCRIPTION A - Received in fixative is one container labeled with the patient's name and designated duodenum ulcer biopsy. The specimen consists of two irregular fragments of light aleman soft tissue that in aggregate measure 0.4 x 0.2 x 0.1 cm. The specimen is totally submitted in one cassette. B - Received in fixative is one container labeled with the patient's name and designated antrum biopsy. The specimen consists of one irregular fragment of light aleman soft tissue that measures 0.3 x 0.3 x 0.1 cm. The specimen is totally submitted in one cassette. C - Received in fixative is one container labeled with the patient's name and designated GE junction biopsy. The specimen consists of one irregular fragment of light aleman soft tissue that measures 0.5 x 0.3 x 0.1 cm. The specimen is totally submitted in one cassette. / SJ:rg 09/19/2021 TC:3 CPT: 64284 x3, 02250
[2021-09-19 08:01] VITALS: BP 115/67; BP 160/89; PULSE 64; RESP 16; TEMP 36.1; O2SAT 100
--- NOTE | 2021-09-19 08:03 | OP.CCLET_ITS ---
09/19/2021 Arnulfo Lynn Md Re : Upper GI endoscopy procedure for Ivan Serranor Shane This procedure was performed on Sunday, September 19, 2021. My impressions and recommendations are as follows: Impressions : - LA Grade A reflux esophagitis. Biopsied. - Benign-appearing esophageal stenosis. - Medium-sized hiatal hernia. - Erythematous mucosa in the antrum. Biopsied. - One non-bleeding duodenal ulcer with pigmented material. Biopsied. Recommendations : - Discharge patient to home. - Resume previous diet. - Continue present medications. - Use Prilosec (omeprazole) 40 mg PO daily. Please schedule office followup in 1-2 weeks My findings are described in the full procedure note, which is enclosed. If I can be of further assistance, please feel free to contact me at Doctor phone number(s): Work: . Sincerely, Obed Eric MD 09/19/2021 8:03:30 AM This report has been signed electronically.
--- NOTE | 2021-09-19 08:03 | OP.EGD_ITS ---
Patient Name: Ivan Hernandez Procedure Date: 09/19/2021 7:13 AM Date of : 1935 Age: 86 Procedure: Upper GI endoscopy Indications: Iron deficiency anemia Providers: Obed Eric MD Referring MD: Obed Eric MD Medicines: See the Anesthesia note for documentation of the administered medications Complications: No immediate complications. Procedure: Pre-Anesthesia Assessment: - Prior to the procedure, a History and Physical was performed, and patient medications and allergies were reviewed. The patient's tolerance of previous anesthesia was also reviewed. The risks and benefits of the procedure and the sedation options and risks were discussed with the patient. All questions were answered, and informed consent was obtained. Prior Anticoagulants: The patient has taken no previous anticoagulant or antiplatelet agents. ASA Grade Assessment: III - A patient with severe systemic disease. After reviewing the risks and benefits, the patient was deemed in satisfactory condition to undergo the procedure. After obtaining informed consent, the endoscope was passed under direct vision. Throughout the procedure, the patient's blood pressure, pulse, and oxygen saturations were monitored continuously. The Endoscope was introduced through the mouth, and advanced to the second part of duodenum. The upper GI endoscopy was accomplished without difficulty. The patient tolerated the procedure well. Scope In: 7:26:21 AM Scope Out: 7:33:36 AM Total Procedure Duration Time 0 hours 7 minutes 15 seconds Findings: LA Grade A (one or more mucosal breaks less than 5 mm, not extending between tops of 2 mucosal folds) esophagitis with no bleeding was found 36 cm from the incisors. Biopsies were taken with a cold forceps for histology. One benign-appearing, intrinsic stenosis was found 36 cm from the incisors. This stenosis was mildly severe and. A medium-sized hiatal hernia was present. Diffuse mildly erythematous mucosa without bleeding was found in the gastric antrum. Biopsies were taken with a cold forceps for histology. One non-bleeding cratered duodenal ulcer with pigmented material was found in the duodenal bulb. The lesion was 2 mm in largest dimension. Biopsies were taken with a cold forceps for histology. Impression: - LA Grade A reflux esophagitis. Biopsied. - Benign-appearing esophageal stenosis. - Medium-sized hiatal hernia. - Erythematous mucosa in the antrum. Biopsied. - One non-bleeding duodenal ulcer with pigmented material. Biopsied. Recommendation: - Discharge patient to home. - Resume previous diet. - Continue present medications. - Use Prilosec (omeprazole) 40 mg PO daily. Please schedule office followup in 1-2 weeks Procedure Code(s): --- Professional --- 57668, Esophagogastroduodenoscopy, flexible, transoral; with biopsy, single or multiple CPT copyright 2017 [employer]. All rights reserved. The codes documented in this report are preliminary and upon ad terminal makeup operator review may be revised to meet current compliance requirements. Obed Eric MD 09/19/2021 8:03:30 AM This report has been signed electronically. Number of Addenda: 0 Note Initiated On: 09/19/2021 7:13 AM
[2021-09-19 08:05] VITALS: BP 122/70; BP 160/89; PULSE 60; RESP 16; O2SAT 100
[2021-09-19 08:10] VITALS: BP 135/66; BP 160/89; PULSE 56; RESP 16; O2SAT 97
--- NOTE | 2021-09-19 08:10 | OP.COLON_ITS ---
Patient Name: Ivan Hernandez Procedure Date: 09/19/2021 7:36 AM Date of : 1935 Age: 86 Procedure: Colonoscopy Indications: Iron deficiency anemia Providers: Obed Eric MD Referring MD: Obed Eric MD Medicines: See the Anesthesia note for documentation of the administered medications Patient Profile: Last Colonoscopy: date unknown. Complications: No immediate complications. Procedure: Pre-Anesthesia Assessment: - Prior to the procedure, a History and Physical was performed, and patient medications and allergies were reviewed. The patient's tolerance of previous anesthesia was also reviewed. The risks and benefits of the procedure and the sedation options and risks were discussed with the patient. All questions were answered, and informed consent was obtained. Prior Anticoagulants: The patient has taken no previous anticoagulant or antiplatelet agents. ASA Grade Assessment: III - A patient with severe systemic disease. After reviewing the risks and benefits, the patient was deemed in satisfactory condition to undergo the procedure. After I obtained informed consent, the scope was passed under direct vision. Throughout the procedure, the patient's blood pressure, pulse, and oxygen saturations were monitored continuously. The Colonoscope was introduced through the anus and advanced to the cecum, identified by appendiceal orifice and ileocecal valve. The colonoscopy was performed with moderate difficulty due to multiple diverticula in the colon. The patient tolerated the procedure well. The quality of the bowel preparation was fair. The ileocecal valve and the appendiceal orifice were photographed. Scope In: 7:37:29 AM Scope Withdrawal Time 0 hours 6 minutes 48 seconds Scope Out: 7:56:56 AM Total Procedure Duration Time 0 hours 19 minutes 27 seconds Findings: The digital rectal exam findings include decreased sphincter tone, non-thrombosed external hemorrhoids, non-thrombosed internal hemorrhoids and internal hemorrhoids that prolapse with straining, but spontaneously regress to the resting position (Grade II). Multiple diverticula were found in the sigmoid colon and descending colon. The exam was otherwise without abnormality. Impression: - Preparation of the colon was fair. - Decreased sphincter tone, non-thrombosed external hemorrhoids, non-thrombosed internal hemorrhoids and internal hemorrhoids that prolapse with straining, but spontaneously regress to the resting position (Grade II) found on digital rectal exam. Mild irritation at anal verge. - Diverticulosis in the sigmoid colon and in the descending colon. - The examination was otherwise normal. - No specimens collected. Recommendation: - Discharge patient to home. - Resume previous diet. - Continue present medications. - Repeat colonoscopy in 10 years for screening purposes. - Return to my office in 2 weeks. Procedure Code(s): --- Professional --- 24616, Colonoscopy, flexible; diagnostic, including collection of specimen(s) by brushing or washing, when performed (separate procedure) Diagnosis Code(s): --- Professional --- K64.1, Second degree hemorrhoids K64.4, Residual hemorrhoidal skin tags K62.89, Other specified diseases of anus and rectum D50.9, Iron deficiency anemia, unspecified K57.30, Diverticulosis of large intestine without perforation or abscess without bleeding CPT copyright 2017 [employer] [place] [employer]. All rights reserved. The codes documented in this report are preliminary and upon food trades assistants review may be revised to meet current compliance requirements. Obed Eric MD 09/19/2021 8:09:59 AM This report has been signed electronically. Number of Addenda: 0 Note Initiated On: 09/19/2021 7:36 AM
--- NOTE | 2021-09-19 08:10 | OP.CCLET_ITS ---
09/19/2021 Arnulfo Lynn Md Re : Colonoscopy procedure for Ivan Lynn This procedure was performed on Sunday, September 19, 2021. My impressions and recommendations are as follows: Impressions : - Preparation of the colon was fair. - Decreased sphincter tone, non-thrombosed external hemorrhoids, non-thrombosed internal hemorrhoids and internal hemorrhoids that prolapse with straining, but spontaneously regress to the resting position (Grade II) found on digital rectal exam. Mild irritation at anal verge. - Diverticulosis in the sigmoid colon and in the descending colon. - The examination was otherwise normal. - No specimens collected. Recommendations : - Discharge patient to home. - Resume previous diet. - Continue present medications. - Repeat colonoscopy in 10 years for screening purposes. - Return to my office in 2 weeks. My findings are described in the full procedure note, which is enclosed. If I can be of further assistance, please feel free to contact me at Doctor phone number(s): Work: . Sincerely, Obed Eric MD 09/19/2021 8:09:59 AM This report has been signed electronically.
[2021-09-19 08:16] VITALS: BP 140/78; BP 160/89; PULSE 61; RESP 16; TEMP 36.3; O2SAT 98
[2021-09-19 08:23] VITALS: BP 160/89
== END 2021-09-19 23:59 | disposition home or self-care (01) ==
LOC: EN 06:21 → AC 06:21 → ACINP 06:27 → AC 06:28 → ACINP 08:12 → AC 08:14
PROVIDERS: PCP Family Medicine Geriatric Medicine; Referring Provider Surgery; Visit Provider Surgery
PROC: 0DJD8ZZ Inspection of Lower Intestinal Tract, Via Natural or Artificial Opening Endoscopic (ICD-10-PCS; CPT 45378; principal; 2021-09-19 07:25)
DX: K29.50 Unspecified chronic gastritis without bleeding (principal); F03.90 Unspecified dementia, unspecified severity, without behavioral disturbance, psychotic disturbance, mood disturbance, and anxiety; N18.30 Chronic kidney disease, stage 3 unspecified; K22.2 Esophageal obstruction; K64.4 Residual hemorrhoidal skin tags; E78.00 Pure hypercholesterolemia, unspecified; K44.9 Diaphragmatic hernia without obstruction or gangrene; Z87.891 Personal history of nicotine dependence; K21.00 Gastro-esophageal reflux disease with esophagitis, without bleeding; K26.9 Duodenal ulcer, unspecified as acute or chronic, without hemorrhage or perforation; E78.5 Hyperlipidemia, unspecified; K57.30 Diverticulosis of large intestine without perforation or abscess without bleeding; K64.1 Second degree hemorrhoids; D50.9 Iron deficiency anemia, unspecified; I12.9 Hypertensive chronic kidney disease with stage 1 through stage 4 chronic kidney disease, or unspecified chronic kidney disease; Z86.73 Personal history of transient ischemic attack (TIA), and cerebral infarction without residual deficits; Z87.01 Personal history of pneumonia (recurrent); M85.80 Other specified disorders of bone density and structure, unspecified site; Z79.899 Other long term (current) drug therapy
CPT/HCPCS: 45378; 43239; 87426; 88305; 88313; 88341; 88342; C9803; J7120; J2405

== ENCOUNTER 2021-10-02 13:25 | Outpatient (CLI) | payer MEDICARE, MEDICAID, SELFPAY ==
[2021-10-02 13:52] LABS: Hematocrit 32.9 % (37-47); Hemoglobin 10.5 g/dL (12.0-15.0); Mean Corp Hgb Conc 31.9 g/dL (32-36); Mean Corpuscular Hgb 28.9 pg (27.0-32.0); Mean Corpuscular Volume 90.6 fL (81-99); Mean Platelet Vol. 10.4 fl (6.2-12.0); Platelet Count 256 K/mm3 (150-450); RBC Distribution Width CV 14.6 % (11.6-14.6); RBC Distribution Width SD 48.1 fl (35.1-43.9); Red Blood Count 3.63 M/mm3 (4.2-5.4); White Blood Count 5.7 K/mm3 (4.4-11.0)
== END 2021-10-02 23:59 | disposition short-term general hospital (02) ==
LOC: LAB 13:27
PROVIDERS: PCP Family Medicine Geriatric Medicine; Visit Provider Surgery
DX: K26.9 Duodenal ulcer, unspecified as acute or chronic, without hemorrhage or perforation (principal)
CPT/HCPCS: 36415; 85027

== ENCOUNTER 2021-10-03 05:57 | Emergency (ER) | payer MEDICARE, MEDICAID, SELFPAY ==
[2021-10-03 06:01] VITALS: PULSE 57; RESP 20; TEMP 35.7; O2SAT 100; BMI 24.3
[2021-10-03 06:07] VITALS: BP 168/74; PULSE 57; RESP 20; TEMP 35.7; O2SAT 100
--- NOTE | 2021-10-03 06:09 | RAD_ITS ---
EXAM: XR CHEST, 1 VIEW CLINICAL INDICATION: chest pain chest pain TECHNIQUE: Frontal view of the chest. This report was created using boosk report generation technology. COMPARISON: Chest x-ray 07/13/2021. CT scan chest 08/21/2020. FINDINGS: LUNGS AND PLEURAL SPACES: Calcified granuloma overlying the left lower lung field. There is mild left basilar atelectasis. There are non-dense infiltrates in the right mid and lower lung anna, possibly representing early bacterial pneumonia or atypical infection. No pneumothorax. No effusion. HEART: The heart is mildly enlarged. MEDIASTINUM: There is a large hiatal hernia. BONES/JOINTS: Unremarkable. SOFT TISSUES: Unremarkable. VASCULATURE: There are atherosclerotic calcifications of the aortic arch. RAD/Chest 1 View (Portable) IMPRESSION: 1. No evidence of infiltrates in the right mid and lower lung anna, possibly representing early bacterial pneumonia or atypical infection. 2. Hiatal hernia. 3. Mild cardiomegaly. Electronically Signed: Quirino Chanel MD at 6:50 EST Reading Location ID and State: [facility] / [place] , Service support ,
--- NOTE | 2021-10-03 06:09 | EKG12_ITS ---
Test Reason : SOB Blood Pressure : / mmHG Vent. Rate : 052 BPM Atrial Rate : 052 BPM P-R Int : 148 ms QRS Dur : 090 ms QT Int : 472 ms P-R-T Axes : 019 -16 019 degrees QTc Int : 438 ms Sinus bradycardia with sinus arrhythmia Otherwise normal ECG Confirmed by SHIRA BARLOW, ÓSCAR ([id number]), legal editor FLORENTIN MORLEY ([id number]) on 10/05/2021 10:52:18 AM Referred By: EUNICE Confirmed By:TANIA SILVA MD
--- NOTE | 2021-10-03 06:21 | ED.RN ---
PT HAS REFUSED AN IV BUT WILL ALLOW AN X-RAY. AWARE.
--- NOTE | 2021-10-03 06:54 | EDS_ITS ---
HPI History of Present Illness Chief Complaint: Shortness of Breath Informant: patient Onset/Context/Timing Onset: Hours Context: gradual Timing: Continuous Current Severity: Mild Maximum Severity: Mild Worsened by: Coughing Relieved by: Oxygen and Albuterol Associated Symptoms cough and green sputum; Negative for fever or sore throat Chest Pain: Positive for None Narrative Narrative: 86-year-old female history of COPD not on home O2. Says she started having shortness of breath the last night around 7 PM. She has had episodes like this before with COPD flares. She denies fever. No chest pain. No hemoptysis. No history of DVT or PE. No recent travel, surgery or immobilization. No leg pain or swelling. States she has a cough of green sputum. Patient quit smoking 5 years ago. She uses inhalers at home. She is currently not on any antibiotics nor any steroids. PE Risk Factors: Negative for Cancer, OCP + Smoking + > 35, Prior DVT or PE, Recent immobilization, Recent surgery and Recent travel Prior similar symptoms: Yes Recent Illness/Hospitalization: No PFSH PFSH Medical History Anemia Anxiety Arthritis Bladder disease Bronchiectasis Chronic renal failure, stage 3 (moderate) CVA (cerebral vascular accident) Dementia Disorder of bone and cartilage Diverticula of colon Dysmetabolic syndrome Fatigue Former smoker Gastric reflux GERD (gastroesophageal reflux disease) High cholesterol History of echocardiogram History of edema HLD (hyperlipidemia) HTN (hypertension) Hypercholesteremia Hypertrophy of nasal turbinates Lichen sclerosus Multiple pulmonary nodules Obesity Osteopenia Pneumonia Seborrheic keratoses Shortness of breath on exertion TIA (transient ischemic attack) Tobacco abuse Urinary, incontinence, stress female Vitamin B12 deficiency Vitamin D deficiency Wears dentures Wears glasses Home Medications albuterol sulfate 2.5 mg INHALATION Q4H PRN PRN 03/12/20 [History Last Taken Unknown] clobetasol-emollient 15 gm TP BID 11/30/20 [History Last Taken Unknown] Breo Ellipta 1 - 2 inh INHALATION DAILY 09/14/21 [History Last Taken Unknown] amlodipine 5 mg PO DAILY 09/14/21 [History Last Taken Unknown] donepezil 10 mg PO DAILY 09/14/21 [History Last Taken 09/19/21] fluconazole 150 mg tablet 150 mg PO Q3D #2 tab 09/15/21 [Rx Last Taken Unknown] omeprazole 40 mg PO DAILY #30 cap 09/19/21 [Rx Last Taken Unknown] bismuth subsalicylate 525 mg/15 mL oral suspension 525 mg PO .qid 14 Days #236 ml 09/22/21 [Rx Last Taken Unknown] metronidazole 250 mg tablet 250 mg PO .qid 14 Days #56 tab 09/22/21 [Rx Last Taken Unknown] tetracycline 500 mg capsule 500 mg PO .qid #56 cap 09/22/21 [Rx Last Taken Unknown] azithromycin [Zithromax] 250 mg PO DAILY 4 Days #4 tab 10/03/21 [Rx Last Taken Unknown] prednisone 40 mg PO DAILY 7 Days #14 tab 10/03/21 [Rx Last Taken Unknown] Allergy/AdvReac Type Severity Reaction Status Date / Time lisinopril AdvReac Swelling Verified 10/02/21 13:06 Surgical History History of bladder suspension procedure History of esophagogastroduodenoscopy (EGD) History of surgery Hx of tonsillectomy Social History Smoking Status: Former smoker alcohol intake: never ROS ROS ED ROS Narrative Shortness of breath with a cough of green sputum. Review of Systems ROS Unobtainable: Denies due to encephalopathy Constitutional Constitutional ED: Denies chills, fever(s) or sweats Eyes Eyes: Denies change in vision ENT ENT ED: Denies ear pain, rhinorrhea or sore throat Cardiovascular Cardiovascular: Denies chest pain or palpitations Respiratory/Chest Respiratory/Chest: Reports cough, dyspnea and sputum Gastrointestinal Gastrointestinal: Denies abdominal pain, diarrhea, nausea or vomiting Genitourinary Genitourinary ED: Denies dysuria or hematuria Musculoskeletal Musculoskeletal: Denies myalgias Integumentary Denies rash Neurologic Neurologic: Denies headache(s) Psychiatric Psychiatric: Denies depression Endocrine Endocrinology: Denies polyuria Hematologic/Lymphatic Hematologic/Lymphatic: Denies easy bruising Allergic/Immunologic Allergic/Immunologic ED: Denies urticaria EXAM Physical Exam Narrative Exam Narrative: 86-year-old female no acute distress. Vital signs are stable. Her pulse ox is 100% on room air no hypoxia. She is afebrile. She does not look septic or toxic. She is in no significant respiratory distress. H EENT exam unremarkable. Moist use membranes. Neck nontender no JVD no lymphadenopathy. Lungs she has a few scattered wheezes. Slightly prolonged expiratory phase. No rales or rhonchi. Equal symmetrical. She is not tripoding. She does not have labored breathing. Heart regular rhythm rate about 60 with a 4/6 systolic ejection murmur. Abdomen is soft and nontender. Normal bowel sounds no peritoneal signs. She is moving all 4 extremities. Calves are nontender without edema or cords. Neurologically she is awake and alert. Const Vital Signs: 10/03/21 06:01 10/03/21 06:07 10/03/21 06:08 Temperature 96.3 F L 96.3 F L Temperature Source Temporal Temporal Pulse Rate 57 L 57 L Respiratory Rate 20 H 20 H Respiratory Effort Normal Respiratory Depth Normal Respiratory Pattern Normal Blood Pressure 168/74 H Blood Pressure Mean 105 Pulse Ox 100 100 Oxygen Delivery Method Room Air Room Air 10/03/21 07:20 Temperature Temperature Source Pulse Rate 54 L Respiratory Rate 16 Respiratory Effort Respiratory Depth Respiratory Pattern Blood Pressure Blood Pressure Mean Pulse Ox Oxygen Delivery Method Positive well nourished and well developed; Negative for obese, cachectic, contractures or unkempt General Appearance ED: well developed and NAD; Negative for unkempt, cachectic, contractures or pallor Nutritional Appearance: Negative for cachectic or obese HEENT Reports moist mucous membranes atraumatic Eyes PERRL and EOMs intact bilaterally Neck no lymphadenopathy, supple, no meningeal signs and no JVD General: Negative for tenderness Resp normal respiratory effort and clear to auscultation bilaterally Auscultation: Negative for rales, rhonchi or wheezes Cardio regular rate, regular rhythm, S1 normal heart sound, S2 normal heart sound and no murmurs GI non-tender, non-distended and no masses Auscultation: normoactive bowel sounds Palpation: soft; Negative for tender, guarding or rebound tenderness present Back/Spine no CVA tenderness and normal to inspection General Back: Negative for CVA tenderness or tenderness Extremity normal to inspection General Extremety ED: Negative for edema or tenderness General Extremity: Negative for edema Neuro oriented x3 Sensorium / Orientation: alert, oriented to person, oriented to place and oriented to time; Negative for orientation impaired, confused or lethargic Motor Exam: strength 5/5 throughout Psych mental status grossly normal Appearance: Negative for unkempt Thought Process: normal thought process Skin no wounds General Skin Exam: Negative for jaundice or pallor Lesions: no lesions Rashes: no rashes MDM MDM MDM Narrative Medical decision making narrative: 86-year-old female with shortness of breath. Clinically appears to be a COPD flare may or may not have bronchitis. EKG was unremarkable. Chest x-ray shows chronic changes and cannot rule out infiltrates. Patient did not want any blood work or an IV started. She did not want to be tested for Covid. She will be treated with an albuterol and DuoNeb aerosol. Given a dose of prednisone and Zithromax. Repeat exam at 7:28 AM patient is doing well. After aerosols and prednisone her wheezing is completely resolved. She is in no respiratory distress. She clinically looks comfortable. Lungs are clear equal and symmetrical bilaterally. She is breathing much more easily. She is comfortable being discharged home. Prescription for prednisone and Zithromax. Lab Data Lab results narrative: Patient refused IV and lab work. Radiography Chest X-Ray - ED: 1 View, Read by ED Physician, Read by Radiologist, Heart, Mediastinum, Bony Structures and Chronic Changes Diagnostic Testing: Clinical Impression(s) from Imaging Studies Chest X-Ray 10/03/21 06:09 IMPRESSION: 1. No evidence of infiltrates in the right mid and lower lung anna, possibly representing early bacterial pneumonia or atypical infection. 2. Hiatal hernia. 3. Mild cardiomegaly. Electronically Signed: Quirino Chanel MD at 6:50 EST Reading Location ID and State: [facility] / [place] , Service support , Chest x-ray, single view, portable interpreted myself the radiologist shows chronic changes. Radiologist describes possible infiltrates. I compared this to an old film and there is really no significant change. Rhythm Strip Rhythm Strip: Sinus Rhythm Rate: 52 Ectopy: None EKG Initial EKG: Attestation: I personally reviewed and interpreted this EKG as follows: Interpretation: No Acute Injury Pattern and Sinus Bradycardia Comments: Sinus bradycardia rate of 52 no acute signs of MA nor ischemia. Prior EKG tracings: not available for review Discharge Plan Triage Chief Complaint: Shortness of Breath ED Provider: Dru Morales Dx/Rx/DC Orders Clinical Impression: Acute exacerbation of chronic obstructive pulmonary disease, Bronchitis Instructions: ED Bronchitis with Wheezing (Adult), ED COPD Flare Prescriptions: New azithromycin [Zithromax] 250 mg tablet 250 mg PO DAILY 4 Days Qty: 4 RF: 0 prednisone 20 mg tablet 40 mg PO DAILY 7 Days Qty: 14 RF: 0 No Action fluconazole [Diflucan] 150 mg tablet 150 mg PO Q3D Qty: 2 RF: 0 albuterol sulfate 2.5 MG/3 ML solution for nebulization 2.5 mg inhalation Q4H PRN PRN (Reason: Sob &/Or Wheezing) RF: 0 clobetasol-emollient 15 GM cream 15 gm TP BID RF: 0 donepezil 10 mg tablet 10 mg PO DAILY RF: 0 amlodipine 5 mg tablet 5 mg PO DAILY RF: 0 Breo Ellipta 100-25 mcg/dose blister with device 1 - 2 inh INHALATION DAILY RF: 0 omeprazole 40 mg capsule,delayed release(DR/EC) 40 mg PO DAILY Qty: 30 RF: 1 bismuth subsalicylate 525 mg/15 mL suspension 525 mg PO .qid 14 Days Qty: 236 RF: 0 tetracycline 500 mg capsule 500 mg PO .qid Qty: 56 RF: 0 metronidazole 250 mg tablet 250 mg PO .qid 14 Days Qty: 56 RF: 0 Primary Care Provider: Arnulfo Lynn Chi Referrals: Arnulfo Lynn Chi, MD [Primary Care Provider] - 3-5 Days if not improving Activity Restrictions/Additional Instructions: Plenty of fluids and rest. Use your inhaler as needed. Daily prednisone to help with your breathing. Finish the antibiotic Zithromax you got your first dose here in the emergency department. 1 pill a day starting tomorrow for 4 more days. Follow-up with your doctor if not improving or return emergency department if feeling worse. Disposition Disposition: Home, Self Care
[2021-10-03] MEDS: predniSONE 20 MG Tablet 40 MG PO (07:03)
[2021-10-03] MEDS: Azithromycin 250 MG Tablet 500 MG PO (07:03)
[2021-10-03] MEDS: Albuterol 2.5 MG/3 ML VIAL.NEB. INHALATION (07:19)
[2021-10-03] MEDS: Ipratropium/Albuterol Sulfate 3 ML AMPUL.NEB INHALATION (07:19)
[2021-10-03 07:20] VITALS: PULSE 54; RESP 16
[2021-10-03 07:33] VITALS: PULSE 58; RESP 16; O2SAT 97
--- NOTE | 2021-10-04 17:29 | CM.ED ---
ER DC F/u Call: Patient DC'd from ER 10/03/21 with COPD Flare, Prescription for Zithromax and Prednisone. Patient already on home O2. Called patient listed cell ohone with no answer, Vm left to return call if having any questions, concerns. Angeli Trejo RNCM
== END 2021-10-03 07:34 | disposition home or self-care (01) ==
PROVIDERS: Emergency Provider Emergency Medicine; PCP Family Medicine Geriatric Medicine; Visit Provider Emergency Medicine
DX: J44.1 Chronic obstructive pulmonary disease with (acute) exacerbation (principal); N18.30 Chronic kidney disease, stage 3 unspecified; I12.9 Hypertensive chronic kidney disease with stage 1 through stage 4 chronic kidney disease, or unspecified chronic kidney disease; J40 Bronchitis, not specified as acute or chronic; K21.9 Gastro-esophageal reflux disease without esophagitis; Z87.891 Personal history of nicotine dependence; Z86.73 Personal history of transient ischemic attack (TIA), and cerebral infarction without residual deficits; Z79.899 Other long term (current) drug therapy
CPT/HCPCS: 71045; 93005; 94640; 99285

== ENCOUNTER 2021-10-05 06:36 | Emergency (ER) | payer MEDICARE, MEDICAID, SELFPAY ==
[2021-10-05 06:36] VITALS: BP 144/75; PULSE 73; RESP 16; TEMP 36.8; O2SAT 97; BMI 23.2
[2021-10-05 06:40] VITALS: BP 144/75; PULSE 68; PULSE 71; RESP 15; RESP 17; TEMP 36.8; O2SAT 97; O2SAT 98
--- NOTE | 2021-10-05 06:55 | EKG12_ITS ---
Test Reason : Blood Pressure : / mmHG Vent. Rate : 064 BPM Atrial Rate : 064 BPM P-R Int : 164 ms QRS Dur : 082 ms QT Int : 422 ms P-R-T Axes : 057 -21 046 degrees QTc Int : 435 ms Normal sinus rhythm with sinus arrhythmia Normal ECG Confirmed by GENIE BARLOW, NATALIE ([id number]), offline editor FLORENTIN MORLEY ([id number]) on 10/09/2021 12:33:33 PM Referred By: GLORIA Confirmed By:NATALIE PRESCOTT MD
--- NOTE | 2021-10-05 06:56 | EX.ED.DYSGE1 ---
HPI History of Present Illness Chief Complaint: General Illness Informant: patient and family Narrative Narrative: Patient is an 86-year-old female with extensive medical history including COPD, anxiety, dementia, GERD, stroke, iron deficiency anemia and recent EGD on 09/19/21 which showed medium-sized hiatal hernia, nonbleeding duodenal ulcer and reflux esophagitis as well as colonoscopy the same day which showed diverticulosis with no diverticulitis. She is presenting with generalized malaise and decreased oral intake. Patient states she has been feeling well for 3 to 4 days and is unable to eat anything. She states she does does not have any appetite. She has body aches. She has a mild cough. Patient was seen in the ER 2 days ago complaining of shortness of breath. She felt she was having a COPD flare and just wanted a chest x-ray. At that time she did not want Covid testing or any further work-up. Patient was discharged with prednisone and a Z-Jf. She notes she currently does not feel short of breath and just has a mild intermittently productive cough. She denies any fevers. She denies any urinary symptoms. Patient is now with her daughter and her daughter states patient does have some dementia. Chart review shows that patient had Covid on 07/30/2020. [facility] Medical History Anemia Anxiety Arthritis Bladder disease Bronchiectasis Chronic renal failure, stage 3 (moderate) CVA (cerebral vascular accident) Dementia Disorder of bone and cartilage Diverticula of colon Dysmetabolic syndrome Fatigue Former smoker Gastric reflux GERD (gastroesophageal reflux disease) High cholesterol History of echocardiogram History of edema HLD (hyperlipidemia) HTN (hypertension) Hypercholesteremia Hypertrophy of nasal turbinates Lichen sclerosus Multiple pulmonary nodules Obesity Osteopenia Pneumonia Seborrheic keratoses Shortness of breath on exertion TIA (transient ischemic attack) Tobacco abuse Urinary, incontinence, stress female Vitamin B12 deficiency Vitamin D deficiency Wears dentures Wears glasses Home Medications albuterol sulfate 2.5 mg INHALATION Q4H PRN PRN 03/12/20 [History Last Taken Unknown] Breo Ellipta 1 - 2 inh INHALATION DAILY 09/14/21 [History Last Taken Unknown] amlodipine 5 mg PO DAILY 09/14/21 [History Last Taken Unknown] donepezil [Aricept] 10 mg PO DAILY 09/14/21 [History Last Taken 09/19/21] omeprazole 40 mg PO DAILY #30 cap 09/19/21 [Rx Last Taken Unknown] tetracycline 500 mg capsule 500 mg PO .qid #56 cap 09/22/21 [Rx Last Taken Unknown] prednisone 40 mg PO DAILY 7 Days #14 tab 10/03/21 [Rx Last Taken Unknown] ondansetron HCl 4 mg PO Q8H PRN #10 tab 10/05/21 [Rx Last Taken Unknown] Allergy/AdvReac Type Severity Reaction Status Date / Time lisinopril AdvReac Swelling Verified 10/05/21 06:41 Surgical History History of bladder suspension procedure History of esophagogastroduodenoscopy (EGD) History of surgery Hx of tonsillectomy Social History Smoking Status: Former smoker alcohol intake: never ROS ROS ED Constitutional Constitutional ED: Reports other Details: decreased appetite ; Denies chills or fever(s) Eyes Eyes: Denies blurry vision or change in vision ENT ENT ED: Denies sore throat Cardiovascular Cardiovascular: Denies chest pain Respiratory/Chest Respiratory/Chest: Reports cough and sputum; Denies dyspnea or dyspnea on exertion Gastrointestinal Gastrointestinal: Reports abdominal pain, constipation and nausea; Denies diarrhea or vomiting Genitourinary Genitourinary ED: Denies dysuria or urinary frequency Musculoskeletal Musculoskeletal: Reports myalgias; Denies arthralgias Integumentary Denies rash Neurologic Neurologic: Reports weakness; Denies headache(s) Psychiatric Psychiatric: Denies anxiety or depression EXAM Physical Exam Const Vital Signs: 10/05/21 06:36 10/05/21 06:40 10/05/21 06:45 Temperature 98.3 F 98.3 F Temperature Source Temporal Temporal Pulse Rate 73 71 Respiratory Rate 16 15 Respiratory Effort Normal Respiratory Pattern Normal Blood Pressure 144/75 H 144/75 H Blood Pressure Mean 98 98 Pulse Ox 97 98 Oxygen Delivery Method Room Air Room Air 10/05/21 08:58 10/05/21 09:27 Temperature Temperature Source Pulse Rate 71 75 Respiratory Rate 16 16 Respiratory Effort Respiratory Pattern Blood Pressure 142/69 H 124/69 H Blood Pressure Mean 93 Pulse Ox 96 98 Oxygen Delivery Method Room Air Positive well nourished and well developed General Appearance ED: well developed HEENT Reports dry mucous membranes Negative for trauma Mouth ED: Yes dry mucous membranes Mouth: dry mucous membranes Eyes PERRL and EOMs intact bilaterally Neck supple and no JVD Chest Wall inspection of chest normal Resp normal respiratory effort Auscultation: diminished lung sounds diffuse; Negative for rales, rhonchi or wheezes Cardio regular rate, regular rhythm and no murmurs GI normal to inspection, nondistended, normoactive bowel sounds and non-tender Palpation: soft Back/Spine no CVA tenderness Extremity normal to inspection General Extremety ED: Negative for edema or tenderness General Extremity: Negative for edema Neuro no sensory deficits noted Sensorium / Orientation: alert Motor Exam: Negative for general weakness Psych mental status grossly normal Skin no rashes or lesions noted and no wounds MDM MDM MDM Narrative Medical decision making narrative: Patient evaluated for generalized malaise and myalgias as well as anorexia. Patient does appear mildly dehydrated. She is hemodynamically stable. She was seen 2 days ago diagnosed with bronchitis and started on azithromycin as well as prednisone. She is not complain of any respiratory complaints at this time. She does have a mild leukocytosis of 11.4 however I suspect this is reactive from the prednisone. She is afebrile. Lab work obtained which is remarkable for an elevated creatinine 1.36 however this is at the patient's baseline and a mild hyponatremia of 135. Her CPK is 243 which is only minimally elevated. This could be consistent with the patient's myalgias. She is not having new hypoxia, worsening respiratory symptoms I did not repeat a chest x-ray that was done 2 days ago. Urinalysis does not show any ketones or signs of infection. Patient does seem improved with IV fluids and Zofran. I discussed with patient and her daughter that there is no clear cause of her symptoms and this could be related to her gastritis/esophagitis or a viral illness. She will continue take the medications prescribed. She is also given a prescription for Zofran to help keep her hydrated. She is counseled on return precautions. Patient ambulates out of the emergency room without any difficulty. Patient and daughter agreeable with plan of care. Lab Data Attestation: I reviewed the patient's lab results. Labs: Laboratory Results - last 24 hr 10/05/21 10/05/21 10/05/21 07:03 07:03 08:50 WBC 11.4 H RBC 4.04 L Hgb 12.0 Hct 35.5 L MCV 87.9 MCH 29.7 MCHC 33.8 D RDW Std Deviation 46.8 H RDW Coeff of Jung 14.6 Plt Count 234 MPV 10.0 Immature Gran % (Auto) 0.300 Neut % (Auto) 82.3 H Lymph % (Auto) 8.9 L [place] % (Auto) 8.0 Eos % (Auto) 0.3 Baso % (Auto) 0.2 Absolute Neuts (auto) 9.4 H Absolute Lymphs (auto) 1.02 Nucleated RBC % 0 Sodium 135 L Potassium 4.1 Chloride 104 Carbon Dioxide 25.0 Anion Gap 6 BUN 27 H Creatinine 1.36 H Estim Creat Clear Calc 27.80 Est GFR (MDRD) Af Amer 47 L Est GFR (MDRD) Non-Af 39 L BUN/Creatinine Ratio 19.9 Glucose 105 Calcium 9.0 Total Bilirubin 0.60 AST 63 H ALT 42 Alkaline Phosphatase 117 Total Creatine Kinase 243 H Troponin I High Sens 24 Total Protein 7.0 Albumin 3.0 L Globulin 4.0 Albumin/Globulin Ratio 0.8 L Lipase 226 Urine Color Yellow Urine Clarity Sl. Cloudy Urine pH 6.5 Ur Specific Steen 1.010 Urine Protein Negative Urine Glucose (UA) Normal Urine Ketones Negative Urine Occult Blood Negative Urine Nitrite Negative Urine Bilirubin Negative Urine Urobilinogen Normal Ur Leukocyte Esterase Negative Urine RBC 0 SEEN Urine WBC 0 SEEN Ur Squamous Epith Cells 0-5 SEEN Urine Bacteria 0 SEEN Urine Mucus 0 SEEN Rhythm Strip Rhythm Strip: Sinus Rhythm Rate: 64 Ectopy: None EKG Initial EKG: Attestation: I personally reviewed and interpreted this EKG as follows: Interpretation: Sinus Rhythm Comments: Normal sinus rhythm at a rate of 64 with sinus arrhythmia Normal intervals Normal axis Normal ST segments Prior EKG tracings: available for review Prior: Unchanged Discharge Plan Triage Chief Complaint: General Illness ED Provider: Johanna Chen Dx/Rx/DC Orders Clinical Impression: Malaise and fatigue, Myalgia Instructions: ED Myalgias, ED Weakness (Uncertain Cause) Prescriptions: New ondansetron HCl 4 mg tablet 4 mg PO Q8H PRN (Reason: nausea and vomiting) Qty: 10 RF: 0 No Action albuterol sulfate 2.5 MG/3 ML solution for nebulization 2.5 mg inhalation Q4H PRN PRN (Reason: Sob &/Or Wheezing) RF: 0 donepezil [Aricept] 10 mg tablet 10 mg PO DAILY RF: 0 amlodipine 5 mg tablet 5 mg PO DAILY RF: 0 Breo Ellipta 100-25 mcg/dose blister with device 1 - 2 inh INHALATION DAILY RF: 0 omeprazole 40 mg capsule,delayed release(DR/EC) 40 mg PO DAILY Qty: 30 RF: 1 prednisone 20 mg tablet 40 mg PO DAILY 7 Days Qty: 14 RF: 0 tetracycline 500 mg capsule 500 mg PO .qid Qty: 56 RF: 0 Primary Care Provider: Arnulfo Lynn Chi Referrals: Arnulfo Lynn Chi, MD [Primary Care Provider] - Activity Restrictions/Additional Instructions: Your work-up today was pretty normal. Make sure drinking plenty of fluids. Try to eat small meals throughout the day. I am not sure if you have a viral illness or some irritation of your stomach that is causing your symptoms. Continue taking the medications prescribed to you. Disposition Disposition: Home, Self Care Discharge Date/Time: 10/05/21 09:29
[2021-10-05 07:10] LABS: Absolute Lymphocyte Count 1.02 X10^3/uL (0.83-4.51); Absolute Neutrophil Count 9.4 X10^3/uL (2.0-7.7); Basophil# 0.02 X10^3/uL; Basophil% 0.2 % (0-1); Eosinophil# 0.04 X10^3/uL; Eosinophils% 0.3 % (0-5); Hematocrit 35.5 % (37-47); Lymphocyte # 1.02 X10^3/ul (0.83-4.51); Lymphocyte % 8.9 % (19-41); Mean Corp Hgb Conc 33.8 g/dL (32-36); Mean Corpuscular Hgb 29.7 pg (27.0-32.0); Mean Corpuscular Volume 87.9 fL (81-99); Monocyte# 0.91 X10^3/uL; NRBC Flagged by Analyzer 0 % (0-5); Neutrophil # 9.41 X10^3/uL (2.7-7.7); Neutrophil % 82.3 % (47-70); Platelet Count 234 K/mm3 (150-450); RBC Distribution Width CV 14.6 % (11.6-14.6); RBC Distribution Width SD 46.8 fl (35.1-43.9); Red Blood Count 4.04 M/mm3 (4.2-5.4); White Blood Count 11.4 K/mm3 (4.4-11.0)
[2021-10-05] MEDS: 0.9% Normal Saline 1,000 ML 999 ML IV (07:29)
[2021-10-05] MEDS: Ondansetron 4 MG/2 ML Vial IV (07:29)
[2021-10-05 07:30] LABS: ALB/GLOB Ratio 0.8 RATIO (0.9-2.4); AST(SGOT) 63 U/L (15-37); Alanine Aminotransfer ALT/SGPT 42 U/L (13-56); Alkaline Phosphatase 117 U/L (45-117); Anion Gap 6 (5-15); BUN 27 mg/dL (7-18); BUN/Creat Ratio 19.9 RATIO (10-20); CPK Total, Creatine Kinase 243 U/L (26-192); Chloride 104 mmol/L (98-107); Creatinine, Serum 1.36 mg/dL (0.55-1.02); EST Glomerular Filtration Rate 39 mL/min (>60); Est Glom Filt Rate - Afr Amer 47 mL/min (>60); Glucose 105 mg/dL (74-106); Lipase 226 U/L (73-393); Potassium 4.1 mmol/L (3.5-5.1); Sodium Level 135 mmol/L (136-145); Troponin-I HS 24 pg/mL (3.0-54.0)
[2021-10-05 08:54] LABS: Bacteria 0 SEEN /hpf (None Seen); Mucous, Urine 0 SEEN /hpf (<or=2+); Red Blood Cells-Urine 0 SEEN /hpf (0-5); White Blood Cells 0 SEEN /hpf (0-5)
[2021-10-05 08:57] LABS: Color, Urine Yellow (Yellow); Glucose, Dipstick Normal (Normal); Ketone-Dipstick Negative (Negative); Leukocyte Esterase-Dipstick Negative /ul (Negative); Nitrite-Dipstick Negative (Negative); Occult Blood-Urine Negative /ul (Negative); Protein-Dipstick Negative (Negative); Urine Bilirubin Dipstick Negative (Negative); Urine Clarity Sl. Cloudy (Clear); Urine Urobilinogen Normal (Normal); Urine pH 6.5 (5.0 - 8.0)
[2021-10-05 08:58] VITALS: BP 142/69; PULSE 71; RESP 16; O2SAT 96
[2021-10-05 09:14] LABS: Squamous Epithelial Cells - UA 0-5 SEEN /hpf (5-10)
[2021-10-05 09:27] VITALS: BP 124/69; PULSE 75; RESP 16; O2SAT 98
== END 2021-10-05 09:29 | disposition home or self-care (01) ==
PROVIDERS: Emergency Provider Emergency Medicine; PCP Family Medicine Geriatric Medicine; Visit Provider Emergency Medicine
DX: R53.81 Other malaise (principal); J44.9 Chronic obstructive pulmonary disease, unspecified; N18.30 Chronic kidney disease, stage 3 unspecified; R53.83 Other fatigue; M79.10 Myalgia, unspecified site; I12.9 Hypertensive chronic kidney disease with stage 1 through stage 4 chronic kidney disease, or unspecified chronic kidney disease; K21.9 Gastro-esophageal reflux disease without esophagitis; Z86.16 Personal history of COVID-19; Z87.891 Personal history of nicotine dependence; Z79.899 Other long term (current) drug therapy
CPT/HCPCS: 80053; 81001; 82550; 83690; 84484; 85025; 87426; 93005; 96374; 99285; J7030; A4216; J2405

== ENCOUNTER 2021-10-13 11:18 | Emergency (ER) | payer MEDICARE, MEDICAID, SELFPAY ==
[2021-10-13 11:19] VITALS: BP 142/90; PULSE 85; RESP 22; TEMP 35.9; O2SAT 99; BMI 24.0
[2021-10-13 11:42] VITALS: O2SAT 99
--- NOTE | 2021-10-13 11:42 | EKG12_ITS ---
Test Reason : SOB Blood Pressure : / mmHG Vent. Rate : 072 BPM Atrial Rate : 072 BPM P-R Int : 156 ms QRS Dur : 090 ms QT Int : 430 ms P-R-T Axes : 070 -16 036 degrees QTc Int : 470 ms Normal sinus rhythm Normal ECG Confirmed by REBA BARLOW, ENEIDA ([id number]), industrial editor FLORENTIN MORLEY ([id number]) on 10/17/2021 12:57:33 PM Referred By: RODOLFO Confirmed By:ENEIDA BRITTON MD
--- NOTE | 2021-10-13 12:00 | ED.VIS.DYS ---
HPI History of Present Illness Chief Complaint: Shortness of Breath Narrative Narrative: 86-year-old female presenting with shortness of breath. She states this started just prior to arrival. She does admit to chronic shortness of breath due to COPD. She does not wear home oxygen. Patient states that she is not having any chest pain. She has not had a cough, fever, chills. She denies nausea or vomiting. She denies abdominal pain or flank pain. No urinary symptoms. Patient does report a history of pulmonary embolism but she cannot give any details on when it was or whether it is provoked or unprovoked. She is not on anticoagulation currently. [facility] Medical History (Updated 10/13/21 @ 12:09 by Dina Jones) Anemia Anxiety Arthritis Bladder disease Bronchiectasis Chronic renal failure, stage 3 (moderate) CVA (cerebral vascular accident) Dementia Disorder of bone and cartilage Diverticula of colon Dysmetabolic syndrome Early onset Alzheimer's dementia Fatigue Former smoker Gastric reflux GERD (gastroesophageal reflux disease) High cholesterol History of echocardiogram History of edema HLD (hyperlipidemia) HTN (hypertension) Hypercholesteremia Hypertrophy of nasal turbinates Lichen sclerosus Multiple pulmonary nodules Obesity Osteopenia Pneumonia Seborrheic keratoses Shortness of breath on exertion TIA (transient ischemic attack) Tobacco abuse Urinary, incontinence, stress female Vitamin B12 deficiency Vitamin D deficiency Wears dentures Wears glasses Home Medications albuterol sulfate 2.5 mg INHALATION Q4H PRN PRN 03/12/20 [History Last Taken Unknown] Breo Ellipta 1 - 2 inh INHALATION DAILY 09/14/21 [History Last Taken Unknown] amlodipine 5 mg PO DAILY 09/14/21 [History Last Taken Unknown] donepezil [Aricept] 10 mg PO DAILY 09/14/21 [History Last Taken 09/19/21] omeprazole 40 mg PO DAILY #30 cap 09/19/21 [Rx Last Taken Unknown] tetracycline 500 mg capsule 500 mg PO .qid #56 cap 09/22/21 [Rx Last Taken Unknown] prednisone 40 mg PO DAILY 7 Days #14 tab 10/03/21 [Rx Last Taken Unknown] ondansetron HCl 4 mg PO Q8H PRN #10 tab 10/05/21 [Rx Last Taken Unknown] Allergy/AdvReac Type Severity Reaction Status Date / Time lisinopril AdvReac Swelling Verified 10/05/21 06:41 Surgical History History of bladder suspension procedure History of esophagogastroduodenoscopy (EGD) History of surgery Hx of tonsillectomy Social History Smoking Status: Former smoker alcohol intake: never ROS ROS ED Constitutional Constitutional ED: Denies chills or fever(s) Eyes Eyes: Denies blurry vision or diplopia ENT ENT ED: Denies rhinorrhea or sore throat Cardiovascular Cardiovascular: Denies chest pain or palpitations Respiratory/Chest Respiratory/Chest: Reports dyspnea; Denies cough Gastrointestinal Gastrointestinal: Denies abdominal pain, constipation, diarrhea, nausea or vomiting Genitourinary Genitourinary ED: Denies dysuria or hematuria Musculoskeletal Musculoskeletal: Denies arthralgias or myalgias Integumentary Denies abscess or rash Neurologic Neurologic: Denies headache(s), paresthesias or weakness EXAM Physical Exam Const Vital Signs: 10/13/21 11:19 10/13/21 11:42 10/13/21 12:02 Temperature 96.7 F L 97.0 F L Temperature Source Temporal Temporal Pulse Rate 85 72 Respiratory Rate 22 H 15 Respiratory Effort Short of Breath Respiratory Depth Normal Respiratory Pattern Tachypnea Blood Pressure 142/90 H 153/73 H Blood Pressure Mean 107 99 Pulse Ox 99 99 98 Oxygen Delivery Method Room Air Room Air Room Air 10/13/21 14:00 Temperature Temperature Source Pulse Rate 70 Respiratory Rate 18 Respiratory Effort Respiratory Depth Respiratory Pattern Blood Pressure 139/111 H Blood Pressure Mean 120 Pulse Ox 96 Oxygen Delivery Method Room Air Positive well nourished General Appearance ED: NAD; Negative for pallor HEENT Reports moist mucous membranes atraumatic Eyes PERRL and EOMs intact bilaterally Neck no lymphadenopathy and supple Resp normal respiratory effort and clear to auscultation bilaterally Auscultation: Negative for rales, rhonchi or wheezes Cardio Negative for regular rate or regular rhythm GI Palpation: Negative for soft Back/Spine normal to inspection Extremity normal to inspection General Extremety ED: Negative for edema or tenderness General Extremity: Negative for edema Neuro oriented x3 and CN's II-XII intact bilaterally Sensorium / Orientation: alert and oriented to person Motor Exam: strength 5/5 throughout Psych mental status grossly normal Thought Process: normal thought process Skin General Skin Exam: Negative for jaundice or pallor Lesions: no lesions Rashes: no rashes MDM MDM MDM Narrative Medical decision making narrative: Patient presenting with shortness of breath which started prior to arrival. She has no cough, fever, chills. She has no chest pain. She is currently on room air. Her vital signs are normal. Lungs are clear to auscultation. CBC shows no leukocytosis. Hemoglobin 10.7 which is slightly lower than her previous visit. She denies black or bloody stools. Creatinine is 1. 43 and GFR at baseline. High-sensitivity troponin is 71 and delta troponin is 72. CT of the chest is ordered out of patient's reported history of PE and this is negative for acute findings. Previous infiltrates have resolved. There was a delay in care as I did order an occult stool and to do a rectal exam which showed brown stool. This took a couple of hours to return. It apologized to the patient and explained why we needed the result because of her low hemoglobin. Since she is Hemoccult negative she safe for discharge home. She can return precautions. Impression: 1. Dyspnea 2. Anemia Lab Data Attestation: I reviewed the patient's lab results. Labs: Laboratory Results - last 24 hr 10/13/21 10/13/21 10/13/21 12:00 12:00 14:00 WBC 9.4 RBC 3.74 L Hgb 10.7 L Hct 33.1 L MCV 88.5 MCH 28.6 MCHC 32.3 RDW Std Deviation 50.2 H RDW Coeff of Jung 15.5 H Plt Count 434 MPV 10.2 Immature Gran % (Auto) 0.200 Neut % (Auto) 82.1 H Lymph % (Auto) 9.7 L [place] % (Auto) 6.7 Eos % (Auto) 0.9 Baso % (Auto) 0.4 Absolute Neuts (auto) 7.7 Absolute Lymphs (auto) 0.91 Nucleated RBC % 0 Sodium 140 Potassium 3.4 L Chloride 110 H Carbon Dioxide 23.0 Anion Gap 7 BUN 19 H Creatinine 1.43 H Estim Creat Clear Calc 27.46 Est GFR (MDRD) Af Amer 45 L Est GFR (MDRD) Non-Af 37 L BUN/Creatinine Ratio 13.3 Glucose 89 Calcium 8.6 Troponin I High Sens 71 H 72 H Radiography Diagnostic Testing: Clinical Impression(s) from Imaging Studies Chest CTA 10/13/21 12:55 IMPRESSION: No evidence of pulmonary embolism. Hyperinflation. The previously seen patchy infiltrates have resolved. Electronically Signed: Kyle Stevens MD at 13:26 EST , Chest X-Ray 10/13/21 12:57 IMPRESSION: Hyperinflation. No acute abnormality is seen. Hiatal hernia. Electronically Signed: Kyle Stevens MD at 13:15 EST , Discharge Plan Triage Chief Complaint: Shortness of Breath ED Provider: Ty Hubbard Dx/Rx/DC Orders Instructions: ED Anemia, Type Not Specified (Adult), ED Dyspnea Prescriptions: No Action albuterol sulfate 2.5 MG/3 ML solution for nebulization 2.5 mg inhalation Q4H PRN PRN (Reason: Sob &/Or Wheezing) RF: 0 donepezil [Aricept] 10 mg tablet 10 mg PO DAILY RF: 0 amlodipine 5 mg tablet 5 mg PO DAILY RF: 0 Breo Ellipta 100-25 mcg/dose blister with device 1 - 2 inh INHALATION DAILY RF: 0 omeprazole 40 mg capsule,delayed release(DR/EC) 40 mg PO DAILY Qty: 30 RF: 1 prednisone 20 mg tablet 40 mg PO DAILY 7 Days Qty: 14 RF: 0 ondansetron HCl 4 mg tablet 4 mg PO Q8H PRN (Reason: nausea and vomiting) Qty: 10 RF: 0 tetracycline 500 mg capsule 500 mg PO .qid Qty: 56 RF: 0 Primary Care Provider: Arnulfo Lynn Chi Referrals: Arnulfo Lynn Chi, MD [Primary Care Provider] - Disposition Disposition: Home, Self Care Discharge Date/Time: 10/13/21 16:56
[2021-10-13 12:02] VITALS: BP 153/73; PULSE 72; RESP 15; TEMP 36.1; O2SAT 98
[2021-10-13 12:19] LABS: Absolute Lymphocyte Count 0.91 X10^3/uL (0.83-4.51); Absolute Neutrophil Count 7.7 X10^3/uL (2.0-7.7); Basophil# 0.04 X10^3/uL; Basophil% 0.4 % (0-1); Eosinophil# 0.08 X10^3/uL; Eosinophils% 0.9 % (0-5); Hematocrit 33.1 % (37-47); Hemoglobin 10.7 g/dL (12.0-15.0); Lymphocyte # 0.91 X10^3/ul (0.83-4.51); Lymphocyte % 9.7 % (19-41); Mean Corp Hgb Conc 32.3 g/dL (32-36); Mean Corpuscular Hgb 28.6 pg (27.0-32.0); Mean Corpuscular Volume 88.5 fL (81-99); Mean Platelet Vol. 10.2 fl (6.2-12.0); Monocyte# 0.63 X10^3/uL; Monocyte% 6.7 % (0-10); NRBC Flagged by Analyzer 0 % (0-5); Neutrophil # 7.69 X10^3/uL (2.7-7.7); Neutrophil % 82.1 % (47-70); Platelet Count 434 K/mm3 (150-450); RBC Distribution Width CV 15.5 % (11.6-14.6); RBC Distribution Width SD 50.2 fl (35.1-43.9); Red Blood Count 3.74 M/mm3 (4.2-5.4); White Blood Count 9.4 K/mm3 (4.4-11.0)
[2021-10-13 12:36] LABS: Anion Gap 7 (5-15); BUN 19 mg/dL (7-18); BUN/Creat Ratio 13.3 RATIO (10-20); Calcium,Total 8.6 mg/dL (8.5-10.1); Chloride 110 mmol/L (98-107); Creatinine, Serum 1.43 mg/dL (0.55-1.02); EST Glomerular Filtration Rate 37 mL/min (>60); Est Glom Filt Rate - Afr Amer 45 mL/min (>60); Estimated Creatinine Clearance 27.46 ml/min; Glucose 89 mg/dL (74-106); Potassium 3.4 mmol/L (3.5-5.1); Sodium Level 140 mmol/L (136-145); Troponin-I HS 71 pg/mL (3.0-54.0)
--- NOTE | 2021-10-13 12:55 | CT_ITS ---
STUDY: CTA CHEST REASON FOR EXAM: Female, 86 years old. Dyspnea. RADIATION DOSAGE (If Supplied By Facility): CTDIvol = ( 9.92 ) mGy, DLP = ( 268.20 ) mGycm TECHNIQUE: The examination was performed with the intravenous administration of IV 100mL Isovue-370. Post-processing of the angiographic images was performed, with multiplanar reformation and 3D reconstruction. Individualized dose optimization techniques were used for this CT. COMPARISON: Comparison is made with prior chest radiograph done earlier in the day as well as prior CT of the thorax dated 08/21/2020. FINDINGS: Normal enhancement of the main pulmonary artery and right and left pulmonary arteries. Normal enhancement of the bilateral peripheral pulmonary arteries. There is no demonstrated pulmonary embolism. Normal thoracic aorta and visualized great vessels. There is no demonstrated aortic dissection. There are calcifications of the coronary arteries. Normal mediastinum. Normal hilar regions. Normal visualized trachea and bronchi. Hyperinflation. There is a 1.6 cm vascular structure in the lingular segment of the left upper lobe as seen on axial image #119 and coronal image number 98. This may represent a localized vascular malformation. The previously seen patchy infiltrates have resolved. Normal pleura. Normal chest wall structures. There are degenerative changes of thoracic spine. Thickening/fluid in the left anterior pararenal space. This abuts the tail of the pancreas. Localized acute pancreatitis should be ruled out. This extends into the region of the splenic hilum. Moderate-sized hiatal hernia. Stable hyperdense cyst in the right kidney. CT/CTA Chest W/WO Contrast IMPRESSION: No evidence of pulmonary embolism. Hyperinflation. The previously seen patchy infiltrates have resolved. Electronically Signed: Kyle Stevens MD at 13:26 EST ,
--- NOTE | 2021-10-13 12:57 | RAD_ITS ---
STUDY: X-RAY CHEST REASON FOR EXAM: Female, 86 years old. Chest pain TECHNIQUE: Single AP portable view of the chest. COMPARISON: Comparison is made with prior study dated 10/03/2021. FINDINGS: EKG electrodes are seen. Hyperinflation. Scattered bilateral calcified granulomas. There is no demonstrated pleural abnormality. Normal size heart. Normal mediastinum and rasheed. Normal visualized pulmonary arteries. There is atherosclerotic calcification of the aortic arch with tortuosity. Normal visualized thoracic spine. Normal visualized ribs, clavicles, and shoulders. Small hiatal hernia. RAD/Chest 1 View (Portable) IMPRESSION: Hyperinflation. No acute abnormality is seen. Hiatal hernia. Electronically Signed: Kyle Stevens MD at 13:15 EST ,
--- NOTE | 2021-10-13 12:58 | NURSING ---
haydee from registration up (pts daughter) pt cognition declining at home. pt more off and aggitated since 1 week ago. working on assisted living placement. talking to sw now.
[2021-10-13 14:00] VITALS: BP 139/111; PULSE 70; RESP 18; O2SAT 96
[2021-10-13 14:34] LABS: Troponin-I HS 72 pg/mL (3.0-54.0)
--- NOTE | 2021-10-13 14:46 | CM.ED ---
Social Work Consult: Resources Referral source: Nursing staff. Patient daughter with concerns of patient being able to continue to live at home alone as patient has been more forgetful. Patient daughter reports that patient is independent in the home with daughter checking in with patient daily. Met with patient in room. Introduced self and child protective services social worker role. Patient agreeable to speak with this child protective services social worker. This child protective services social worker broached topic help in the home or in the community for patient. Patient states I think I am getting to the point I need a half-way. Patient is open to a list of nursing homes in the area. Patient not open to half-way at this time but will need to talk with my daughter more. Patient plans to return to home today. This child protective services social worker provided patient and patient daughter with information on senior living homes as well as assisted living and [facility]. Active support provided. Nursing staff colin. Lily SORTO, SHAHAB
== END 2021-10-13 16:56 | disposition home or self-care (01) ==
PROVIDERS: Emergency Provider Student in an Organized Health Care Education/Training Program; PCP Family Medicine Geriatric Medicine; Visit Provider Student in an Organized Health Care Education/Training Program
DX: R06.00 Dyspnea, unspecified (principal); D64.9 Anemia, unspecified; Z87.891 Personal history of nicotine dependence; Z86.711 Personal history of pulmonary embolism; Z86.73 Personal history of transient ischemic attack (TIA), and cerebral infarction without residual deficits
CPT/HCPCS: 99285; 71045; 71275; 80048; 82274; 84484; 85025; 93005; Q9967; A4216

== ENCOUNTER 2021-10-15 09:58 | Inpatient (IN) | payer MEDICARE, MEDICAID, SELFPAY ==
[2021-10-15] VITALS (8 sets, daily range): BP systolic 125–160; BP diastolic 57–79; PULSE 63–79; RESP 16–20; TEMP 36.6–36.7; O2SAT 95–99; BMI 23.5; BMI 22.4
--- NOTE | 2021-10-15 10:19 | ED.RN ---
PER PT REQUEST, ATTEMPTED TO CONTACT BOTH DAUGHTER. LEFT A MESSAGE FOR BOTH ON [employer]ICEMAILS
--- NOTE | 2021-10-15 10:41 | EKG12_ITS ---
Test Reason : SOB Blood Pressure : / mmHG Vent. Rate : 067 BPM Atrial Rate : 067 BPM P-R Int : 164 ms QRS Dur : 088 ms QT Int : 444 ms P-R-T Axes : 058 -21 021 degrees QTc Int : 469 ms Normal sinus rhythm with sinus arrhythmia Normal ECG Confirmed by REBA BARLOW, ENEIDA ([id number]), research editor FLORENTIN MORLEY ([id number]) on 10/17/2021 12:58:00 PM Referred By: BARB Confirmed By:ENEIDA BRITTON MD
--- NOTE | 2021-10-15 10:43 | EDS_ITS ---
HPI History of Present Illness Chief Complaint: Shortness of Breath Informant: patient Onset/Context/Timing Onset: Days Current Severity: Moderate Maximum Severity: Moderate Narrative Narrative: Patient presents via EMS secondary to shortness of breath. Patient has a history of COPD. She was seen in the ER 2 days ago for similar symptoms. Patient states she feels like she just cannot get enough air in to breathe. She had very minimal cough. No fever or chills. She denies pain. She used her albuterol inhaler prior to arrival and EMS gave her a DuoNeb treatment. In spite of this patient states she does not feel improved. She states she understands that her oxygen level looks good but she feels as if she cannot get a deep breath. Patient's work-up from 2 days ago was reviewed. She had 2 troponins obtained as well as a CTA of the chest that was unremarkable. [facility] Medical History Anemia Anxiety Arthritis Bladder disease Bronchiectasis Chronic renal failure, stage 3 (moderate) COPD (chronic obstructive pulmonary disease) CVA (cerebral vascular accident) Dementia Disorder of bone and cartilage Diverticula of colon Dysmetabolic syndrome Early onset Alzheimer's dementia Fatigue Former smoker GERD (gastroesophageal reflux disease) History of echocardiogram History of edema HLD (hyperlipidemia) HTN (hypertension) Hypercholesteremia Hypertrophy of nasal turbinates Lichen sclerosus Multiple pulmonary nodules Obesity Osteopenia Pneumonia Seborrheic keratoses Shortness of breath on exertion TIA (transient ischemic attack) Tobacco abuse Urinary, incontinence, stress female Vitamin B12 deficiency Vitamin D deficiency Wears dentures Wears glasses Home Medications albuterol sulfate 2.5 mg INHALATION Q4H PRN PRN 03/12/20 [History Last Taken Unknown] Breo Ellipta 1 - 2 inh INHALATION DAILY 09/14/21 [History Last Taken Unknown] amlodipine 5 mg PO DAILY 09/14/21 [History Last Taken Unknown] donepezil [Aricept] 10 mg PO DAILY 09/14/21 [History Last Taken 09/19/21] omeprazole 40 mg PO DAILY #30 cap 09/19/21 [Rx Last Taken Unknown] tetracycline 500 mg capsule 500 mg PO .qid #56 cap 09/22/21 [Rx Last Taken Unknown] prednisone 40 mg PO DAILY 7 Days #14 tab 10/03/21 [Rx Last Taken Unknown] ondansetron HCl 4 mg PO Q8H PRN #10 tab 10/05/21 [Rx Last Taken Unknown] Allergy/AdvReac Type Severity Reaction Status Date / Time lisinopril AdvReac Swelling Verified 10/05/21 06:41 Surgical History History of bladder suspension procedure History of esophagogastroduodenoscopy (EGD) History of surgery Hx of tonsillectomy Social History Smoking Status: Former smoker alcohol intake: never ROS ROS ED Constitutional Constitutional ED: Denies chills or fever(s) Eyes Eyes: Denies change in vision ENT ENT ED: Denies sore throat Cardiovascular Cardiovascular: Denies chest pain Respiratory/Chest Respiratory/Chest: Reports cough and dyspnea; Denies sputum Gastrointestinal Gastrointestinal: Denies abdominal pain, diarrhea, nausea or vomiting Genitourinary Genitourinary ED: Denies dysuria Musculoskeletal Musculoskeletal: Denies back pain Integumentary Denies rash Neurologic Neurologic: Denies headache(s) or weakness Allergic/Immunologic Allergic/Immunologic ED: Denies urticaria EXAM Physical Exam Const Vital Signs: 10/15/21 10:00 10/15/21 10:06 10/15/21 12:25 Temperature 97.9 F 97.9 F Temperature Source Temporal Temporal Pulse Rate 72 72 63 Respiratory Rate 20 H 20 H 18 Respiratory Effort Short of Breath Blood Pressure 125/79 H 125/79 H 145/73 H Blood Pressure Mean 94 94 97 Pulse Ox 99 99 98 Oxygen Delivery Method Room Air Room Air Room Air Positive well nourished and well developed General Appearance ED: well developed HEENT Reports moist mucous membranes Eyes PERRL and EOMs intact bilaterally Neck supple Chest Wall inspection of chest normal and palpation of chest normal Resp normal respiratory effort and clear to auscultation bilaterally Resp Narrative: O2 sat 97% on room air at the time of my exam Cardio regular rate and regular rhythm GI non-tender Palpation: soft Extremity normal to inspection Neuro oriented x3 Sensorium / Orientation: alert Skin no rashes or lesions noted MDM MDM MDM Narrative Medical decision making narrative: Patient given a dose of Solu-Medrol. Lab work and chest x-ray obtained. Work-up from 2 days ago reviewed. Lab Data Attestation: I reviewed the patient's lab results. Labs: Laboratory Results - last 24 hr 10/15/21 10/15/21 10/15/21 11:30 11:30 11:30 WBC 8.4 RBC 3.89 L Hgb 11.2 L Hct 35.3 L MCV 90.7 MCH 28.8 MCHC 31.7 L RDW Std Deviation 51.8 H RDW Coeff of Jung 16.1 H Plt Count 230 MPV 10.8 Immature Gran % (Auto) 0.400 Neut % (Auto) 83.4 H Lymph % (Auto) 8.4 L [place] % (Auto) 6.7 Eos % (Auto) 0.7 Baso % (Auto) 0.4 Absolute Neuts (auto) 7.0 Absolute Lymphs (auto) 0.70 L Nucleated RBC % 0 Sodium 139 Potassium 3.1 L Chloride 106 Carbon Dioxide 21.0 Anion Gap 12 BUN 16 Creatinine 1.41 H Estim Creat Clear Calc 27.85 Est GFR (MDRD) Af Amer 45 L Est GFR (MDRD) Non-Af 38 L BUN/Creatinine Ratio 11.3 Glucose 132 H Calcium 8.4 L Troponin I High Sens 41 B-Natriuretic Peptide 136.3 H Radiography Chest X-Ray - ED: 1 View, Read by ED Physician and Chronic Changes Diagnostic Testing: Clinical Impression(s) from Imaging Studies Chest X-Ray 10/15/21 11:30 IMPRESSION: No acute cardiopulmonary process. Electronically Signed: Karyn Finch MD at 11:44 EST , EKG Initial EKG: Attestation: I personally reviewed and interpreted this EKG as follows: Interpretation: Sinus Rhythm (Sinus at 67 with no acute ischemia.) Treatment and Re-Evaluation Comments:: On repeat evaluation patient resting more comfortably. She states that her breathing is improved but does not feel normal. She feels that she needs to be placed in a custodial and does not feel safe taking care of herself at home. She does have a diagnosis of dementia. Although she states she tried to call her children this morning daughter states they checked her phone and there were no outgoing calls. I will speak with hospitalist regarding observation custodial placement. Discharge Plan Triage Chief Complaint: Shortness of Breath ED Provider: Dilma Rodriguez Dx/Rx/DC Orders Clinical Impression: SOB (shortness of breath), Declining functional status Prescriptions: No Action albuterol sulfate 2.5 MG/3 ML solution for nebulization 2.5 mg inhalation Q4H PRN PRN (Reason: Sob &/Or Wheezing) RF: 0 donepezil [Aricept] 10 mg tablet 10 mg PO DAILY RF: 0 amlodipine 5 mg tablet 5 mg PO DAILY RF: 0 Breo Ellipta 100-25 mcg/dose blister with device 1 - 2 inh INHALATION DAILY RF: 0 omeprazole 40 mg capsule,delayed release(DR/EC) 40 mg PO DAILY Qty: 30 RF: 1 prednisone 20 mg tablet 40 mg PO DAILY 7 Days Qty: 14 RF: 0 ondansetron HCl 4 mg tablet 4 mg PO Q8H PRN (Reason: nausea and vomiting) Qty: 10 RF: 0 tetracycline 500 mg capsule 500 mg PO .qid Qty: 56 RF: 0 Primary Care Provider: Arnulfo Lynn Chi Referrals: Arnulfo Lynn Chi, MD [Primary Care Provider] - Disposition Disposition: Acute Care Hospital [facility]
[2021-10-15] MEDS: MethylPREDNISolone 125 MG/2 ML Vial 60 MG IV (11:28)
--- NOTE | 2021-10-15 11:30 | RAD_ITS ---
STUDY: X-RAY CHEST REASON FOR EXAM: Female, 86 years old. Shortness of breath TECHNIQUE: Single frontal view of the chest. COMPARISON: 10/13/2021 FINDINGS: There is no new focal consolidation. There are stable granulomas within the left lower lobe. Normal size heart. Normal mediastinum and rasheed. Normal visualized pulmonary arteries. There is atherosclerotic calcification of the aortic arch. Normal visualized thoracic spine. Normal visualized ribs, clavicles, and shoulders. There is no demonstrated abnormality of the visualized soft tissue structures of the upper abdomen. RAD/Chest 1 View (Portable) IMPRESSION: No acute cardiopulmonary process. Electronically Signed: Karyn Finch MD at 11:44 EST ,
[2021-10-15 11:56] LABS: Basophil# 0.03 X10^3/uL; Basophil% 0.4 % (0-1); Eosinophil# 0.06 X10^3/uL; Eosinophils% 0.7 % (0-5); Hematocrit 35.3 % (37-47); Hemoglobin 11.2 g/dL (12.0-15.0); Lymphocyte % 8.4 % (19-41); Mean Corp Hgb Conc 31.7 g/dL (32-36); Mean Corpuscular Hgb 28.8 pg (27.0-32.0); Mean Corpuscular Volume 90.7 fL (81-99); Mean Platelet Vol. 10.8 fl (6.2-12.0); Monocyte# 0.56 X10^3/uL; Monocyte% 6.7 % (0-10); NRBC Flagged by Analyzer 0 % (0-5); Neutrophil # 6.98 X10^3/uL (2.7-7.7); Neutrophil % 83.4 % (47-70); Platelet Count 230 K/mm3 (150-450); RBC Distribution Width CV 16.1 % (11.6-14.6); RBC Distribution Width SD 51.8 fl (35.1-43.9); Red Blood Count 3.89 M/mm3 (4.2-5.4); White Blood Count 8.4 K/mm3 (4.4-11.0)
[2021-10-15 11:59] LABS: Anion Gap 12 (5-15); BUN 16 mg/dL (7-18); BUN/Creat Ratio 11.3 RATIO (10-20); Calcium,Total 8.4 mg/dL (8.5-10.1); Chloride 106 mmol/L (98-107); Creatinine, Serum 1.41 mg/dL (0.55-1.02); EST Glomerular Filtration Rate 38 mL/min (>60); Est Glom Filt Rate - Afr Amer 45 mL/min (>60); Estimated Creatinine Clearance 27.85 ml/min; Glucose 132 mg/dL (74-106); Potassium 3.1 mmol/L (3.5-5.1); Sodium Level 139 mmol/L (136-145); Troponin-I HS 41 pg/mL (3.0-54.0)
[2021-10-15 12:15] LABS: BNP,B-Type NATRIURETIC PEPTIDE 136.3 pg/mL (0-100)
[2021-10-15] MEDS: Potassium Chloride Oral Tablet 20 MEQ 40 MEQ PO (12:35)
--- NOTE | 2021-10-15 13:17 | HP.PCM.HOS_ITS ---
HPI - General General Date of Admission: 10/15/21 HPI Narrative JAZMINE GONZALEZ, is an 86 F with an extensive PMH as outlined who was admitted via the ED on 10/15/2021 with a complaint of shortness of breath. She does have a history of COPD and has been using her inhalers more often at home to no avail. She denied any chest pain, palpitations, dizziness, nausea or vomiting. REview of systems otherwise negative. She has been declining in health and has been unable to take care of herself at home. She has been calling the EMS frequently because of her shortness of breath. She was seen in the ED 2 days ago for similar complaints. Review of systems was otherwise negative. Vitals in the ED were blood pressure 145/73, pulse rate of 60 and respiration rate of 18 with oxygen sats at 98% on room air. CBC showed WBC of 8.4 with hemoglobin of 11.2 and platelets of 230. Chemistry showed sodium of 139 with potassium of 3.1 and creatinine of 1.41. Initial high-sensitivity troponin was 41 and BNP was 136.3. Chest x-ray showed no acute cardiopulmonary process. She has been admitted to be managed for acute on chronic COPD exacerbation and debility due to worsening COPD. [facility] Medical History Anemia Anxiety Arthritis Bladder disease Bronchiectasis Chronic renal failure, stage 3 (moderate) COPD (chronic obstructive pulmonary disease) CVA (cerebral vascular accident) Dementia Disorder of bone and cartilage Diverticula of colon Dysmetabolic syndrome Early onset Alzheimer's dementia Fatigue Former smoker GERD (gastroesophageal reflux disease) History of echocardiogram History of edema HLD (hyperlipidemia) HTN (hypertension) Hypercholesteremia Hypertrophy of nasal turbinates Lichen sclerosus Multiple pulmonary nodules Obesity Osteopenia Pneumonia Seborrheic keratoses Shortness of breath on exertion TIA (transient ischemic attack) Tobacco abuse Urinary, incontinence, stress female Vitamin B12 deficiency Vitamin D deficiency Wears dentures Wears glasses Home Medications albuterol sulfate 2.5 mg INHALATION Q4H PRN PRN 03/12/20 [History Last Taken Unknown] Breo Ellipta 1 - 2 inh INHALATION DAILY 09/14/21 [History Last Taken Unknown] amlodipine 5 mg PO DAILY 09/14/21 [History Last Taken Unknown] donepezil [Aricept] 10 mg PO DAILY 09/14/21 [History Last Taken 09/19/21] omeprazole 40 mg PO DAILY #30 cap 09/19/21 [Rx Last Taken Unknown] ondansetron HCl 4 mg PO Q8H PRN #10 tab 10/05/21 [Rx Last Taken Unknown] [id number] [Trelegy Ellipta] 1 inh INHALATION DAILY 10/15/21 [History Last Taken Unknown] Allergy/AdvReac Type Severity Reaction Status Date / Time lisinopril AdvReac Swelling Verified 10/05/21 06:41 Surgical History History of bladder suspension procedure History of esophagogastroduodenoscopy (EGD) History of surgery Hx of tonsillectomy Social History Smoking Status: Former smoker alcohol intake: never Vital Signs Vital Signs Vital Signs: 10/15/21 10:00 10/15/21 10:06 10/15/21 12:25 Temperature 97.9 F 97.9 F Temperature Source Temporal Temporal Pulse Rate 72 72 63 Respiratory Rate 20 H 20 H 18 Respiratory Effort Short of Breath Blood Pressure 125/79 H 125/79 H 145/73 H Blood Pressure Mean 94 94 97 Pulse Ox 99 99 98 Oxygen Delivery Method Room Air Room Air Room Air Weight Weight: 150 lb 5.684 oz Body Mass Index (BMI) 23.5 Physical Exam Const alert and oriented x3 Constitutional Narrative: frail Orientation / Consciousness: lethargic HEENT normocephalic and head/scalp atraumatic HEENT Narrative: dry mucous membranes Eyes PERRL, EOMs intact bilaterally and conjunctivae normal Neck no lymphadenopathy, supple and no JVD Resp Resp Narrative: Mildly diminished breath sounds bibasilarly. Mild expiratory wheezing. No crackles. Cardio regular rate, regular rhythm, S1 normal heart sound, S2 normal heart sound and no murmurs GI normal to inspection, nondistended, normoactive bowel sounds, soft to palpation, non-tender and non-distended Extremity normal to inspection, full ROM and no clubbing, cyanosis or edema Peripheral Pulses: Yes pulses 2+ throughout Skin no rashes or lesions noted Neuro oriented x3 and CN's II-XII intact bilaterally Sensorium / Orientation: awake and alert Psych affect normal Results Lab / Micro Data Result Diagrams: 10/15/21 11:30 10/15/21 11:30 Labs: Laboratory Results - last 24 hr 10/15/21 11:30: WBC 8.4, RBC 3.89 L, Hgb 11.2 L, Hct 35.3 L, MCV 90.7, MCH 28.8, MCHC 31.7 L, RDW Std Deviation 51.8 H, RDW Coeff of Jung 16.1 H, Plt Count 230, MPV 10.8, Immature Gran % (Auto) 0.400, Neut % (Auto) 83.4 H, Lymph % (Auto) 8.4 L, [place] % (Auto) 6.7, Eos % (Auto) 0.7, Baso % (Auto) 0.4, Absolute Neuts (auto) 7.0, Absolute Lymphs (auto) 0.70 L, Nucleated RBC % 0 10/15/21 11:30: Sodium 139, Potassium 3.1 L, Chloride 106, Carbon Dioxide 21.0, Anion Gap 12, BUN 16, Creatinine 1.41 H, Estim Creat Clear Calc 27.85, Est GFR (MDRD) Af Amer 45 L, Est GFR (MDRD) Non-Af 38 L, BUN/Creatinine Ratio 11.3, Glucose 132 H, Calcium 8.4 L, Troponin I High Sens 41 10/15/21 11:30: B-Natriuretic Peptide 136.3 H Micro: Microbiology 10/15/21 11:30 Nasal Secretion SARS-CoV-2 Antigen (Rapid) - Final Radiology Impression Chest X-Ray 10/15/21 11:30 IMPRESSION: No acute cardiopulmonary process. Electronically Signed: Karyn Finch MD at 11:44 EST , Assessment & Plan Assessment/Plan (1) SOB (shortness of breath): (2) Declining functional status: (3) COPD exacerbation: PLAN: #Acute on chronic COPD exacerbation * Breathing treatments bronchodilators. Titrate oxygen as needed to maintain saturation above 90%. * IV Solu-Medrol 40 mg every 8 hours as needed. * On Breo Ellipta and Trelegy. We will continue. * #Debility due to worsening COPD and dementia * Patient has been declining at home and not able to take care of herself well. * PT/OT on board. Fall precautions. * #Hypokalemia; K is 3.1. Will replace and trend. #Dementia: on donepezil DVT prophylaxis; lovenox Code status: full code * Patient counseled extensively about different types of CODE STATUS including full code, DNR CCA and DNR CCA. Patient initially said she did not want CPR but would want to be intubated. 1 counseled that if she needed CPR, she would likely need to be intubated, patient was agreeable to being intubated and having CPR if needed. Patient therefore elects to be full code. * Total [id number] time 17 minutes. Charges/Coding Visit Charges OBSV E&M: 60049 Initial observation care L3 Procedures Hospitalists Procedures: 85307 Advncd Care Plan 30 Min
[2021-10-15] MEDS: 0.9% Saline Lock 10 ML Syringe IV ×2 (18:28→22:08)
[2021-10-15] MEDS: Budesonide Respules 0.5 MG/2 ML AMPUL.NEB. INHALATION (19:14)
[2021-10-15] MEDS: Ipratropium/Albuterol Sulfate 3 ML AMPUL.NEB INHALATION (19:14)
[2021-10-15] MEDS: DiphenhydrAMINE 50 MG/ML Syringe 25 MG IV (22:17)
[2021-10-16 00:34] VITALS: BP 142/65; PULSE 71; RESP 18; TEMP 36.6; O2SAT 94
[2021-10-16] MEDS: Acetaminophen 325 MG Tablet 650 MG PO ×2 (05:10→12:20)
[2021-10-16] MEDS: 0.9% Saline Lock 10 ML Syringe IV (05:10)
[2021-10-16 05:14] VITALS: BP 155/78; PULSE 68; RESP 18; TEMP 36.4; O2SAT 96
[2021-10-16 06:13] LABS: Absolute Lymphocyte Count 0.43 X10^3/uL (0.83-4.51); Absolute Neutrophil Count 6.9 X10^3/uL (2.0-7.7); Hematocrit 31.1 % (37-47); Hemoglobin 9.9 g/dL (12.0-15.0); Lymphocyte # 0.43 X10^3/ul (0.83-4.51); Lymphocyte % 5.6 % (19-41); Mean Corp Hgb Conc 31.8 g/dL (32-36); Mean Corpuscular Hgb 28.3 pg (27.0-32.0); Mean Corpuscular Volume 88.9 fL (81-99); Mean Platelet Vol. 9.8 fl (6.2-12.0); Monocyte# 0.22 X10^3/uL; Monocyte% 2.9 % (0-10); NRBC Flagged by Analyzer 0 % (0-5); Neutrophil # 6.92 X10^3/uL (2.7-7.7); Neutrophil % 90.7 % (47-70); POSITIVE DIFFERENTIAL YES; Platelet Count 383 K/mm3 (150-450); RBC Distribution Width CV 16.2 % (11.6-14.6); RBC Distribution Width SD 52.6 fl (35.1-43.9); White Blood Count 7.6 K/mm3 (4.4-11.0)
[2021-10-16 06:22] LABS: Differential Indicated SCAN CRITERIA MET
[2021-10-16 06:31] LABS: Anion Gap 8 (5-15); BUN 13 mg/dL (7-18); BUN/Creat Ratio 10.4 RATIO (10-20); Calcium,Total 8.5 mg/dL (8.5-10.1); Chloride 107 mmol/L (98-107); Creatinine, Serum 1.25 mg/dL (0.55-1.02); EST Glomerular Filtration Rate 43 mL/min (>60); Est Glom Filt Rate - Afr Amer 52 mL/min (>60); Estimated Creatinine Clearance 31.42 ml/min; Glucose 165 mg/dL (74-106); Potassium 3.9 mmol/L (3.5-5.1); Sodium Level 139 mmol/L (136-145)
[2021-10-16 06:53] LABS: Differential Comment SCANNED
[2021-10-16 08:12] VITALS: O2SAT 97
[2021-10-16 08:55] VITALS: BP 129/82; PULSE 90; RESP 20; TEMP 36.6; O2SAT 96
[2021-10-16] MEDS: Donepezil HCl 10 MG Tablet PO (09:03)
[2021-10-16] MEDS: Pantoprazole Sodium 40 MG Tablet PO (09:03)
[2021-10-16] MEDS: amLODIPine 5 MG Tablet PO (09:03)
--- NOTE | 2021-10-16 11:00 | CASEMGMT ---
GILES CAMACHO Face to Face with patient for initial transition planning/care coordination assessment. RN CM introduced self and role at [facility]. Patient lying in bed, alert and oriented. Patient willing to participate in assessment and is able to answer all questions appropriately. Care providers, pharmacy, and demographics verified. Patient wishes to discharge to SNF, but per therapy patient doing well and no therapy recommended. Patient gave permission for RN JANICE to speak with daughter Sasha. RN CM spoke to Sasha in person and discussed patient going home with possible HHC or CCN as patient does not qualify to go to SNF. RN CM discuss assisted living or independent living with daughter. Daughter asked for resources, SW updated. Daughter states he has no further needs or concerns at this time. CM to follow for discharge planning needs that may arise. PCP: Shane Specialists: none [facility] Insurance: MARY ALICE RINCON Prescription Benefit: yes Living Will/HPOA: none LNOK: daughters Living Arrangements: Patient lives alone in a first floor apartment with no steps to enter. Patient states she is independent at home but would like help with things such as laundry. Daughter states that she helps with laundry 2x per week. Transportation: daughter DME/HHC: Patient has grab bar in bathroom. Patient denies further DME. No previous HHC or SNF Disposition Plan: Patient to discharge home with HHC, family support, and follow-up plans in place. Suzy RIVERO, RN, CM
[2021-10-16] MEDS: Ipratropium/Albuterol Sulfate 3 ML AMPUL.NEB INHALATION (11:31)
[2021-10-16] MEDS: Budesonide Respules 0.5 MG/2 ML AMPUL.NEB. INHALATION (11:31)
[2021-10-16 11:46] VITALS: PULSE 82; RESP 18
--- NOTE | 2021-10-16 11:51 | CASEMGMT ---
Addendum entered by Elsa Limon 10/16/21 14:51: Pt is agreeable to have staff speak with her granddtr Sofy. Addendum entered by Elsa Limon 10/16/21 13:10: RN JANICE in to pt room, pt dtr present. Discussed criteria for HHC including homebound status. Pt very angry stated she does not want HHC. Attempted to offer the CCN, pt states she does not want them either. Pt states she wants to be somewhere where someone can help her. Made her aware that she did very well with therapy and no therapy is recommended. Dtr has AL lists. She states pt cannot afford them. TC to [facility], spoke with Andie cancelled referral. Notified CCN via cortext to cancel referral. Original Note: TC to [facility], spoke with Andie referral made for SN for COPD teaching. Also left a vm on CCN line for referral following HHC. Received notification from Andie that they can accept pt for SOC on .
--- NOTE | 2021-10-16 12:10 | CASEMGMT ---
Social Work Note SW updated that pt would like resources for Assisted Living and Independent Living. SW in to speak with pt. SW introduced self and role at [facility]. Pt is alert and orientated. SW provided pt with list of [facility] and Independent Livings. Pt thanked this worker, denied additional needs or concerns at this time. Suzy Bravo COMPUTER INSTRUCTOR, MAPPING ENGINEER
--- NOTE | 2021-10-16 14:00 | PCM.DC ---
Discharge Instructions Diet Discharge Diet: No restrictions Activity Discharge Activity: Return to Normal Activity Dressing / Incision Call your doctor if you observe: Shortness of breath Follow Up Care Test Results: Test results from this visit will be discussed in further detail at your follow-up appointment, if applicable. Discharge Plan Admission Admit Date/Time: 10/15/21 15:34 Primary Reason for Your Visit: COPD exacerbation Attending Provider: Bernard Whitt Primary Care Provider: Arnulfo Lynn Chi Discharge Orders/Prescriptions Prescriptions: New prednisone 20 mg Tablet 40 mg PO BREAKFAST Qty: 10 RF: 0 Continued albuterol sulfate 2.5 MG/3 ML solution for nebulization 2.5 mg inhalation Q4H PRN PRN (Reason: Sob &/Or Wheezing) RF: 0 donepezil [Aricept] 10 mg tablet 10 mg PO DAILY RF: 0 amlodipine 5 mg tablet 5 mg PO DAILY RF: 0 Breo Ellipta 100-25 mcg/dose blister with device 1 - 2 inh INHALATION DAILY RF: 0 omeprazole 40 mg capsule,delayed release(DR/EC) 40 mg PO DAILY Qty: 30 RF: 1 ondansetron HCl 4 mg tablet 4 mg PO Q8H PRN (Reason: nausea and vomiting) Qty: 10 RF: 0 Trelegy Ellipta 100-62.5-25 mcg Blister With Device 1 inh INHALATION DAILY RF: 0 Referrals / Follow Up: Omar Johnson MD [STAFF PHYSICIAN] - Within 1 Month Arnulfo Lynn Chi, MD [Primary Care Provider] - Within 1 Week Disposition Disposition (needs filled in before D/C Order can be placed): Home Health Service
--- NOTE | 2021-10-16 14:05 | DS.PCM_ITS ---
Providers Date of Admission: 10/15/21 Primary Care Physician: Arnulfo Lynn MD Reason For Visit: DEBILITY, ACUTE COPD EXACERBATION Diagnosis Discharge Diagnosis (1) SOB (shortness of breath): Status: Acute Code(s): R06.02 - Shortness of breath (2) Declining functional status: Status: Acute Code(s): R53.81 - Other malaise (3) COPD exacerbation: Status: Acute Code(s): J44.1 - Chronic obstructive pulmonary disease with (acute) exacerbation Medications at Discharge Home Medications albuterol sulfate 2.5 mg INHALATION Q4H PRN PRN 03/12/20 Breo Ellipta 1 - 2 inh INHALATION DAILY 09/14/21 amlodipine 5 mg PO DAILY 09/14/21 donepezil [Aricept] 10 mg PO DAILY 09/14/21 omeprazole 40 mg PO DAILY #30 cap 09/19/21 ondansetron HCl 4 mg PO Q8H PRN #10 tab 10/05/21 Trelegy Ellipta 1 inh INHALATION DAILY 10/15/21 prednisone 40 mg PO BREAKFAST #10 tab 10/16/21 Hospital Course Operations None Procedures None Summary of Care Provided Minutes Spent on Discharge: 32 Hospital Course: This is a 86-year-old female with known history of COPD presents with shortness of breath. Patient also weak. Patient was not hypoxic but started on methylprednisolone. Patient overall did well. Patient just felt weak but did not want to go to [facility] want to go to an assisted living. Patient was provided information for sit living in her area that she could follow-up with. Patient will be transitioned over to prednisone and will be discharged. She will need to facilitate on her own getting into an assisted living. Physical Exam Resp normal respiratory effort, no retractions, no use of accessory muscles and clear to auscultation bilaterally Cardio regular rate, regular rhythm, S1 normal heart sound and S2 normal heart sound Weight / BMI Weight Weight: 64.9 kg Body Mass Index (BMI) 22.4 ABG / Lab / Microbiology Data Result Diagrams: 10/16/21 05:54 10/16/21 05:54 Laboratory: Laboratory Results - last 24 hr 10/16/21 05:54: WBC 7.6, RBC 3.50 L, Hgb 9.9 L, Hct 31.1 L, MCV 88.9, MCH 28.3, MCHC 31.8 L, RDW Std Deviation 52.6 H, RDW Coeff of Jung 16.2 H, Plt Count 383, MPV 9.8, Immature Gran % (Auto) 0.800, Neut % (Auto) 90.7 H, Lymph % (Auto) 5.6 L, [place] % (Auto) 2.9, Eos % (Auto) 0.0, Baso % (Auto) 0.0, Absolute Neuts (auto) 6.9, Absolute Lymphs (auto) 0.43 L, Nucleated RBC % 0, Differential Comment SCANNED 10/16/21 05:54: Sodium 139, Potassium 3.9, Chloride 107, Carbon Dioxide 24.0, Anion Gap 8, BUN 13, Creatinine 1.25 H, Estim Creat Clear Calc 31.42, Est GFR (MDRD) Af Amer 52 L, Est GFR (MDRD) Non-Af 43 L, BUN/Creatinine Ratio 10.4, Glucose 165 H, Calcium 8.5 Microbiology: Microbiology 10/15/21 11:30 Nasal Secretion SARS-CoV-2 Antigen (Rapid) - Final D/C Instructions Discharge Diet: No restrictions Call your doctor if you observe: Shortness of breath Meaningful Use Info Meaningful Use Diagnoses (Choose all that apply): None applicable Discharge Plan Admission Admit Date/Time: 10/15/21 15:34 Primary Reason for Your Visit: COPD exacerbation Attending Provider: Bernard Whitt Primary Care Provider: Arnulfo Lynn Chi Discharge Orders/Prescriptions Prescriptions: New prednisone 20 mg Tablet 40 mg PO BREAKFAST Qty: 10 RF: 0 Continued albuterol sulfate 2.5 MG/3 ML solution for nebulization 2.5 mg inhalation Q4H PRN PRN (Reason: Sob &/Or Wheezing) RF: 0 donepezil [Aricept] 10 mg tablet 10 mg PO DAILY RF: 0 amlodipine 5 mg tablet 5 mg PO DAILY RF: 0 Breo Ellipta 100-25 mcg/dose blister with device 1 - 2 inh INHALATION DAILY RF: 0 omeprazole 40 mg capsule,delayed release(DR/EC) 40 mg PO DAILY Qty: 30 RF: 1 ondansetron HCl 4 mg tablet 4 mg PO Q8H PRN (Reason: nausea and vomiting) Qty: 10 RF: 0 Trelegy Ellipta 100-62.5-25 mcg Blister With Device 1 inh INHALATION DAILY RF: 0 Referrals / Follow Up: Omar Johnson MD [STAFF PHYSICIAN] - Within 1 Month Arnulfo Lynn Chi, MD [Primary Care Provider] - Within 1 Week Disposition Disposition (needs filled in before D/C Order can be placed): Home Health Service Charges/Coding Visit Charges OBSV E&M: 44488 Observation care discharge
[2021-10-16 14:51] VITALS: BP 139/75; PULSE 86; RESP 20; TEMP 36.9; O2SAT 98
--- NOTE | 2021-10-16 15:14 | CASEMGMT ---
Social Work Note JAN received message that pt's granddaughter Sofy would like to be called ([phone]). Sofy is not listed on demographics sheet. RN JANICE spoke with pt, pt gave permission for [facility] staff to speak with Sofy. JAN placed a call to Sofy. Sofy states that [facility] beds [facility], takes pt's [employer], and states that they need a referral sent from [facility]. JAN attempted to explained that this worker cannot arrange [facility] and that typically pt's PCP would need to send paperwork regarding LONG TERM. JAN also explained that unless pt is on an Assisted Living Waiver, [facility] is private pay. Sofy states pt qualifies for that waiver program. JAN informed Sofy that this worker doesn't work with the Assisted Living Waiver so this worker is not sure how pt goes about getting admitted under the Assisted Living Waiver. JNA encouraged Sofy to discuss with pt's PCP as process to get pt to [facility]. Sofy states pt's PCP is Dr. Lynn. Sofy states everyone I have talked to is telling me I need to speak with you the SW since pt is at [facility]. JAN again informed Sofy that this worker cannot get pt to LONG TERM, that [facility] are typically private pay, and that they will need to follow up with pt's PCP. Pt's daughter Sasha then updated this worker and RN JANICE that pt has an appointment with [facility] tomorrow at 3:00pm, an appointment with [facility] at 4:00pm and an appointment with Dr. Lynn to get paperwork from his office sent to [facility]isted [facility]. Sasha updated that pt has discharge in for today. Plan: Home. Pt's family to arrange LONG TERM transition Suzy Bravo CHEMICAL ETCHING PROCESSOR, CHLORINE CELLS OPERATOR
== END 2021-10-16 17:25 | disposition home health service (06) | DRG 192 ==
LOC: ED 13:24 → MS3 13:43
PROVIDERS: Admitting Provider Student in an Organized Health Care Education/Training Program; Emergency Provider Emergency Medicine; PCP Family Medicine Geriatric Medicine
DX: J44.1 Chronic obstructive pulmonary disease with (acute) exacerbation (principal); F02.80 Dementia in other diseases classified elsewhere, unspecified severity, without behavioral disturbance, psychotic disturbance, mood disturbance, and anxiety; D64.9 Anemia, unspecified; G30.0 Alzheimer's disease with early onset; N18.30 Chronic kidney disease, stage 3 unspecified; I12.9 Hypertensive chronic kidney disease with stage 1 through stage 4 chronic kidney disease, or unspecified chronic kidney disease; E78.5 Hyperlipidemia, unspecified; E87.6 Hypokalemia; M19.90 Unspecified osteoarthritis, unspecified site; K21.9 Gastro-esophageal reflux disease without esophagitis; R53.81 Other malaise; Z87.891 Personal history of nicotine dependence; Z86.711 Personal history of pulmonary embolism; Z86.73 Personal history of transient ischemic attack (TIA), and cerebral infarction without residual deficits; Z79.899 Other long term (current) drug therapy
CPT/HCPCS: 36415; 71045; 71275; 80048; 82274; 83880; 84484; 85025; 87426; 93005; 94640; 97165; 97802; 99285; Q9967; A4216

== ENCOUNTER 2021-10-17 14:09 | Outpatient (CLI) | payer MEDICARE, MEDICAID, SELFPAY | END 2021-10-17 23:59 | disposition home or self-care (01) | LOC: POLAB3 14:11 → LABSPEC 14:13 | PROVIDERS: PCP Family Medicine Geriatric Medicine; Visit Provider Family Medicine Geriatric Medicine | DX: N39.0 Urinary tract infection, site not specified (principal) | CPT/HCPCS: 87086; 87088 ==

== ENCOUNTER 2021-10-26 15:43 | Emergency (ER) | payer MEDICARE, MEDICAID, SELFPAY ==
[2021-10-26 15:45] VITALS: BP 138/95; PULSE 74; RESP 18; TEMP 36.6; O2SAT 99; BMI 24.2
--- NOTE | 2021-10-26 15:55 | EDS_ITS ---
HPI History of Present Illness Chief Complaint: Back Detail of Chief Complaint: Atraumatic low back pain Informant: patient Onset/Context/Timing Onset: Today (Pain abruptly worse today) Context: Sudden Onset Injury: - (No history of injury) Timing: Continuous Quality: - (Pain) Location: Lumbar Current Severity: 8/10 Maximum Severity: 10/10 Worsened by: improves with Movement and Ambulation Relieved by: Nothing Associated Symptoms Associated Symptoms: - (She denies radicular pain. She denies foot drop. Denies buckling of her knees going up or down 1 step.); Negative for Numbness, Tingling, Radiation to Right Leg, Radiation to Left Leg, Fever, Abdominal Pain, Dysuria, Unable to Ambulate, Unable to Transfer, Urinary Retention, Urinary Incontinence, Constipation and Fecal Incontinence Narrative Narrative: Patient is an elderly 86-year-old woman with history of COPD, GERD and hypertension. There is also history of mild dementia. Patient presents because of abrupt worsening of low back pain that started this morning. She states it started when she got out of bed. She denies radicular pain, she denies bowel bladder dysfunction. She has had a paresthesia or anesthesia. Denies foot drop. She denies buckling of her knees. She denies dysuria, frequency, urgency or hematuria. There is no recent history of trauma. She does admit to unintentional weight loss. She does not know how much she lost however she commented that her clothes are significantly looser on her. She also reports night sweats. She has no known history of cancer. Prior similar symptoms: No Recent Illness/Hospitalization: No PFSH PFS Medical History Anemia Anxiety Anxiety and depression Arthritis Bladder disease Bronchiectasis Chronic anemia Chronic renal failure, stage 3 (moderate) CKD (chronic kidney disease), stage III Contusion of left foot, initial encounter COPD (chronic obstructive pulmonary disease) CVA (cerebral vascular accident) Dementia Disorder of bone and cartilage Diverticula of colon Duodenal ulcer Dysmetabolic syndrome Early onset Alzheimer's dementia Fatigue Former smoker GERD (gastroesophageal reflux disease) History of echocardiogram History of edema HLD (hyperlipidemia) HTN (hypertension) Hypercholesteremia Hypertrophy of nasal turbinates Irritant dermatitis Lichen sclerosus Lower extremity edema Multiple pulmonary nodules Obesity Osteopenia Pneumonia Pneumonia due to COVID-19 virus Seborrheic keratoses Severe anemia Shortness of breath on exertion TIA (transient ischemic attack) Tobacco abuse Urinary, incontinence, stress female Vitamin B12 deficiency Vitamin D deficiency Wears dentures Wears glasses Yeast dermatitis Home Medications albuterol sulfate 2.5 mg INHALATION Q4H PRN PRN 03/12/20 [History Last Taken Unknown] Breo Ellipta 1 - 2 inh INHALATION DAILY 09/14/21 [History Last Taken Unknown] amlodipine 5 mg PO DAILY 09/14/21 [History Last Taken Unknown] donepezil [Aricept] 10 mg PO DAILY 09/14/21 [History Last Taken 09/19/21] omeprazole 40 mg PO DAILY #30 cap 09/19/21 [Rx Last Taken Unknown] ondansetron HCl 4 mg PO Q8H PRN #10 tab 10/05/21 [Rx Last Taken Unknown] albuterol sulfate 90 mcg/actuation aerosol inhaler 2 puff INHALATION Q6H PRN 10/19/21 [History Last Taken Unknown] citalopram 10 mg tablet 10 mg PO DAILY 10/19/21 [History Last Taken Unknown] hydrocodone-acetaminophen 1 tab PO Q6H PRN PRN 3 Days #10 tablet 10/26/21 [Rx Last Taken Unknown] Allergy/AdvReac Type Severity Reaction Status Date / Time lisinopril AdvReac Swelling Verified 10/26/21 15:47 Surgical History History of bladder suspension procedure History of esophagogastroduodenoscopy (EGD) History of surgery Hx of tonsillectomy Social History (Updated 10/26/21 @ 15:[address] Bear Vaz MD) household members: none Smoking Status: Former smoker how long ago did patient quit smoking: Patient quit smoking approximately 5 years ago. alcohol intake: never substance use type: does not use ROS ROS ED Constitutional Constitutional ED: Reports sweats and weight loss; Denies chills, fever(s) or subjective Eyes Eyes: Denies blurry vision, change in vision or diplopia ENT ENT ED: Denies ear pain, rhinorrhea or sore throat Cardiovascular Cardiovascular: Denies chest pain, orthopnea, palpitations or paroxysmal nocturnal dyspnea Respiratory/Chest Respiratory/Chest: Reports dyspnea on exertion; Denies dyspnea, orthopnea, paroxysmal nocturnal dyspnea or sputum Gastrointestinal Gastrointestinal: Denies abdominal pain, constipation, diarrhea, melena, nausea or vomiting Genitourinary Genitourinary ED: Denies dysuria, hematuria or urinary frequency Musculoskeletal Musculoskeletal: Reports back pain; Denies arthralgias, myalgias or neck pain Integumentary Denies rash Neurologic Neurologic: Denies headache(s), paresthesias or weakness Endocrine Endocrinology: Denies polydipsia, polyphagia or polyuria Hematologic/Lymphatic Hematologic/Lymphatic: Denies easy bleeding or easy bruising EXAM Physical Exam Const Vital Signs: 10/26/21 15:45 Temperature 97.9 F Temperature Source Temporal Pulse Rate 74 Respiratory Rate 18 Blood Pressure 138/95 H Blood Pressure Mean 109 Pulse Ox 99 Oxygen Delivery Method Room Air Positive well nourished and well developed General Appearance ED: well developed and NAD; Negative for pallor HEENT Reports moist mucous membranes HEENT Narrative: Ears normal. Nares patent. Posterior pharynx no erythema or exudate. Uvula midline. Negative for trauma or tenderness Eyes PERRL and EOMs intact bilaterally General Eye ED: Negative for pale conjunctiva or scleral icterus Resp normal respiratory effort and clear to auscultation bilaterally Cardio regular rate, regular rhythm, S1 normal heart sound, S2 normal heart sound and no murmurs GI normal to inspection, nondistended, normoactive bowel sounds, soft to palpation, non-tender and non-distended Back/Spine normal to inspection; Negative for no thoracic nor lumbar tenderness Back/Spine Narrative: Pain no patient midline over the lumbar spinous process. Straight leg test elicits central pain at 5 to 10 degrees of elevation. EHLs intact bilaterally. Normal sensation over L4-5 dermatome and perianal area. DP and PT pulse are palpable. 5/5 strength with plantar and dorsiflexion of the foot. Patella and ankle reflexes are 2+ and symmetric. There is no clonus or Babinski sign noted right or left. General Back: Negative for CVA tenderness Cervical Spine: Negative for cervical spine tenderness and Negative for paracervical muscle tenderness Thoracic Spine / Upper Back: Negative for paraspinal muscle tenderness Lumbar Spine / Lower Back: ROM limited; Negative for straight leg raise negative bilaterally or straight leg raise positive right Extremity normal to inspection and no clubbing, cyanosis or edema General Extremety ED: Negative for edema or tenderness General Extremity: other findings Other Details: Patient has stigmata of peripheral arterial disease with shiny skin and no hair on her toes and thickened toenails. ; Negative for edema Neuro Deep Tendon Reflexes: Rt Patellar (L4): 2+, Lt Patellar (L4): 2+, Rt Ankle (S1): 2+ and Lt Ankle (S1): 2+ Deep Tendon Reflexes Back: Rt Patellar (L4): 2+, Lt Patellar (L4): 2+, Rt Ankle (S1): 2+ and Lt Ankle (S1): 2+ Plantar Reflex: Downgoing: bilateral Psych mental status grossly normal Skin no rashes or lesions noted and no wounds General Skin Exam: Negative for jaundice or pallor MDM MDM MDM Narrative Medical decision making narrative: With atraumatic back pain unintentional weight loss night sweats will obtain x-ray to evaluate for malignancy as well as baseline blood work. Patient was medicated with morphine. Lab Data Attestation: I reviewed the patient's lab results. Lab results narrative: Blood work results are unremarkable. Patient's pain improved markedly with 4 mg of morphine. She was discharged to home with pain medicine Labs: Laboratory Results - last 24 hr 10/26/21 10/26/21 16:05 16:05 WBC 7.2 RBC 3.45 L Hgb 10.3 L Hct 31.1 L MCV 90.1 MCH 29.9 MCHC 33.1 RDW Std Deviation 54.2 H RDW Coeff of Jung 16.6 H Plt Count 306 MPV 9.7 Immature Gran % (Auto) 0.300 Neut % (Auto) 74.6 H Lymph % (Auto) 12.2 L [place] % (Auto) 8.7 Eos % (Auto) 3.6 Baso % (Auto) 0.6 Absolute Neuts (auto) 5.4 Absolute Lymphs (auto) 0.88 Nucleated RBC % 0 Sodium 139 Potassium 3.9 Chloride 106 Carbon Dioxide 26.0 Anion Gap 7 BUN 19 H Creatinine 1.30 H Estim Creat Clear Calc 30.21 Est GFR (MDRD) Af Amer 50 L Est GFR (MDRD) Non-Af 41 L BUN/Creatinine Ratio 14.6 Glucose 99 Calcium 9.4 Total Bilirubin 0.40 AST 32 ALT 24 Alkaline Phosphatase 98 Total Protein 7.1 Albumin 3.0 L Globulin 4.1 Albumin/Globulin Ratio 0.7 L Radiography X-Ray: LS SPine (2 view x-ray interpreted by me at 1637. Patient has significant degenerative changes. There is grade 1 out?@[id number]. there is significant atherosclerotic disease with slight dilatation of the distal aorta. There is no lytic or blastic lesions noted.) Diagnostic Testing: Clinical Impression(s) from Imaging Studies Lumbar Spine X-Ray 10/26/21 16:22 IMPRESSION: Scoliosis and degenerative changes. Multilevel chronic compression deformities. Electronically Signed: Zhao Villatoro MD at 17:02 EST , Discharge Plan Triage Chief Complaint: Back ED Provider: Bear Vza Dx/Rx/DC Orders Clinical Impression: Acute bilateral low back pain, Multilevel degenerative disc disease, Scoliosis of lumbar spine, Spondylosis of lumbar spine, Abdominal aortic atherosclerosis, Unintentional weight loss Instructions: ED Back Pain (Acute or Chronic), ED Osteoarthritis Prescriptions: New hydrocodone-acetaminophen [hydrocodone-acetaminophen] 1 TABLET tablet 1 tab PO Q6H PRN PRN (Reason: Pain) 3 Days Qty: 10 RF: 0 No Action citalopram 10 mg tablet 10 mg PO DAILY RF: 0 albuterol sulfate 90 mcg/actuation HFA aerosol inhaler 2 puff inhalation Q6H PRN (Reason: SOB) RF: 0 albuterol sulfate 2.5 MG/3 ML solution for nebulization 2.5 mg inhalation Q4H PRN PRN (Reason: Sob &/Or Wheezing) RF: 0 donepezil [Aricept] 10 mg tablet 10 mg PO DAILY RF: 0 amlodipine 5 mg tablet 5 mg PO DAILY RF: 0 Breo Ellipta 100-25 mcg/dose blister with device 1 - 2 inh INHALATION DAILY RF: 0 omeprazole 40 mg capsule,delayed release(DR/EC) 40 mg PO DAILY Qty: 30 RF: 1 ondansetron HCl 4 mg tablet 4 mg PO Q8H PRN (Reason: nausea and vomiting) Qty: 10 RF: 0 Primary Care Provider: Arnulfo Lynn Chi Referrals: Arnulfo Lynn Chi, MD [Primary Care Provider] - 5-7 Days Disposition Disposition: Home, Self Care
[2021-10-26 16:12] LABS: Absolute Lymphocyte Count 0.88 X10^3/uL (0.83-4.51); Absolute Neutrophil Count 5.4 X10^3/uL (2.0-7.7); Basophil# 0.04 X10^3/uL; Basophil% 0.6 % (0-1); Eosinophil# 0.26 X10^3/uL; Eosinophils% 3.6 % (0-5); Hematocrit 31.1 % (37-47); Hemoglobin 10.3 g/dL (12.0-15.0); Lymphocyte # 0.88 X10^3/ul (0.83-4.51); Lymphocyte % 12.2 % (19-41); Mean Corp Hgb Conc 33.1 g/dL (32-36); Mean Corpuscular Hgb 29.9 pg (27.0-32.0); Mean Corpuscular Volume 90.1 fL (81-99); Mean Platelet Vol. 9.7 fl (6.2-12.0); Monocyte# 0.63 X10^3/uL; Monocyte% 8.7 % (0-10); NRBC Flagged by Analyzer 0 % (0-5); Neutrophil # 5.41 X10^3/uL (2.7-7.7); Neutrophil % 74.6 % (47-70); Platelet Count 306 K/mm3 (150-450); RBC Distribution Width CV 16.6 % (11.6-14.6); RBC Distribution Width SD 54.2 fl (35.1-43.9); Red Blood Count 3.45 M/mm3 (4.2-5.4); White Blood Count 7.2 K/mm3 (4.4-11.0)
[2021-10-26] MEDS: Ondansetron 4 MG/2 ML Vial IV (16:12)
[2021-10-26] MEDS: Morphine 4 MG/ML Syringe IV (16:12)
--- NOTE | 2021-10-26 16:22 | RAD_ITS ---
STUDY: X-RAY - LUMBAR SPINE REASON FOR EXAM: Female, 86 years old. Injury/Pain -- History of unintentional weight loss and night swe TECHNIQUE: 2 view(s) of the lumbar spine were obtained. COMPARISON: 07/04/2021 FINDINGS: Normal lumbar lordosis. There is moderate to severe levo scoliosis. There is a normal alignment of the vertebrae. There is very mild chronic wedging of superior endplates of L5, L3 and L2 without definitive evidence for acute fracture line likely chronic. Mild narrowing of L4-5 disc space.. Vascular calcification without evidence for aneurysm. No significant change since prior exam RAD/Lumbar Spine 2 or 3 Views IMPRESSION: Scoliosis and degenerative changes. Multilevel chronic compression deformities. Electronically Signed: Zhao Villatoro MD at 17:02 EST ,
[2021-10-26 16:35] LABS: ALB/GLOB Ratio 0.7 RATIO (0.9-2.4); AST(SGOT) 32 U/L (15-37); Alanine Aminotransfer ALT/SGPT 24 U/L (13-56); Alkaline Phosphatase 98 U/L (45-117); Anion Gap 7 (5-15); BUN 19 mg/dL (7-18); BUN/Creat Ratio 14.6 RATIO (10-20); Calcium,Total 9.4 mg/dL (8.5-10.1); Chloride 106 mmol/L (98-107); EST Glomerular Filtration Rate 41 mL/min (>60); Est Glom Filt Rate - Afr Amer 50 mL/min (>60); Estimated Creatinine Clearance 30.21 ml/min; Globulin 4.1 g/dL (2.2-4.2); Glucose 99 mg/dL (74-106); Potassium 3.9 mmol/L (3.5-5.1); Protein, Total 7.1 g/dL (6.4-8.2); Sodium Level 139 mmol/L (136-145)
[2021-10-26 17:45] VITALS: BP 145/78; PULSE 73; RESP 18; O2SAT 96
== END 2021-10-26 18:08 | disposition home or self-care (01) ==
PROVIDERS: Emergency Provider Emergency Medicine; PCP Family Medicine Geriatric Medicine; Visit Provider Emergency Medicine
DX: M47.816 Spondylosis without myelopathy or radiculopathy, lumbar region (principal); J44.9 Chronic obstructive pulmonary disease, unspecified; N18.30 Chronic kidney disease, stage 3 unspecified; M51.36 Other intervertebral disc degeneration, lumbar region; I12.9 Hypertensive chronic kidney disease with stage 1 through stage 4 chronic kidney disease, or unspecified chronic kidney disease; M54.50 Low back pain, unspecified; M41.86 Other forms of scoliosis, lumbar region; R63.4 Abnormal weight loss; Z87.891 Personal history of nicotine dependence; Z86.73 Personal history of transient ischemic attack (TIA), and cerebral infarction without residual deficits; Z79.899 Other long term (current) drug therapy
CPT/HCPCS: 72100; 80053; 85025; 96374; 96375; 99285; A4216; J2405

== ENCOUNTER 2021-11-02 12:33 | Emergency (ER) | payer MEDICARE, MEDICAID, SELFPAY ==
[2021-11-02 12:34] VITALS: BP 134/61; PULSE 72; RESP 15; TEMP 36.2; O2SAT 100; BMI 26.3
--- NOTE | 2021-11-02 15:31 | ED.VIS.BACK ---
HPI <RONNIE Retana - Last Filed: 11/02/21 17:28> History of Present Illness Chief Complaint: Back Narrative Narrative: 86-year-old female with PMH of HTN, COPD, GERD presents with low back pain. This pain has been intermittent over the last 3 months and is worse with movements. The pain does not go into her buttocks or lower extremities. No weakness, numbness, tingling, saddle anesthesia, or bladder bowel incontinence. She was seen in the ED on 10/26 and had lumbar x-rays which showed degenerative changes and old compression deformities but nothing acute. She was prescribed Percocet. She states this did not help much. Now she is taking naproxen. Last night the pain became worse especially with rolling in bed or sitting on the couch this morning. She is scheduled to see her primary care doctor next week but did not think she could wait until then. She has no other acute symptoms. No fever, chest pain, shortness of breath, abdominal pain, or bowel or urinary symptoms. PFSH <RONNIE Retana - Last Filed: 11/02/21 17:28> [facility] Medical History Anemia Anxiety Anxiety and depression Arthritis Bladder disease Bronchiectasis Chronic anemia Chronic renal failure, stage 3 (moderate) CKD (chronic kidney disease), stage III Contusion of left foot, initial encounter COPD (chronic obstructive pulmonary disease) CVA (cerebral vascular accident) Dementia Disorder of bone and cartilage Diverticula of colon Duodenal ulcer Dysmetabolic syndrome Early onset Alzheimer's dementia Fatigue Former smoker GERD (gastroesophageal reflux disease) History of echocardiogram History of edema HLD (hyperlipidemia) HTN (hypertension) Hypercholesteremia Hypertrophy of nasal turbinates Irritant dermatitis Lichen sclerosus Lower extremity edema Multiple pulmonary nodules Obesity Osteopenia Pneumonia Pneumonia due to COVID-19 virus Seborrheic keratoses Severe anemia Shortness of breath on exertion TIA (transient ischemic attack) Tobacco abuse Urinary, incontinence, stress female Vitamin B12 deficiency Vitamin D deficiency Wears dentures Wears glasses Yeast dermatitis Home Medications albuterol sulfate 2.5 mg INHALATION Q4H PRN PRN 03/12/20 [History Last Taken Unknown] Breo Ellipta 1 - 2 inh INHALATION DAILY 09/14/21 [History Last Taken Unknown] amlodipine 5 mg PO DAILY 09/14/21 [History Last Taken Unknown] donepezil [Aricept] 10 mg PO DAILY 09/14/21 [History Last Taken 09/19/21] omeprazole 40 mg PO DAILY #30 cap 09/19/21 [Rx Last Taken Unknown] ondansetron HCl 4 mg PO Q8H PRN #10 tab 10/05/21 [Rx Last Taken Unknown] albuterol sulfate 90 mcg/actuation aerosol inhaler 2 puff INHALATION Q6H PRN 10/19/21 [History Last Taken Unknown] citalopram 10 mg tablet 10 mg PO DAILY 10/19/21 [History Last Taken Unknown] hydrocodone-acetaminophen 1 tab PO Q6H PRN PRN 3 Days #10 tablet 10/26/21 [Rx Last Taken Unknown] lidocaine 1 patch TOPICAL DAILY 7 Days #1 ea 11/02/21 [Rx Last Taken Unknown] prednisone 40 mg PO DAILY 5 Days #10 tab 11/02/21 [Rx Last Taken Unknown] Allergy/AdvReac Type Severity Reaction Status Date / Time lisinopril AdvReac Swelling Verified 11/02/21 15:01 Surgical History History of bladder suspension procedure History of esophagogastroduodenoscopy (EGD) History of surgery Hx of tonsillectomy Social History (Updated 10/26/21 @ 15:[address] Bear Vaz MD) household members: none Smoking Status: Former smoker how long ago did patient quit smoking: Patient quit smoking approximately 5 years ago. alcohol intake: never substance use type: does not use ROS <RONNIE Retana - Last Filed: 11/02/21 17:28> ROS ED ROS Narrative Constitutional: Negative for fever, chills, malaise. Eyes: Negative for visual change. ENT: Negative for sore throat, ear pain, rhinorrhea. CVS: Negative for palpitations, chest pain, syncope. Respiratory: Negative for shortness of breath, cough, orthopnea. GI: Negative for abdominal pain, nausea, vomiting, diarrhea, constipation, melena, hematochezia. : Negative for dysuria, hematuria or frequency. Neuro: Negative for headache, motor/sensory dysfunction. Skin: Negative for rash, abscess, or wound. Musc: Positive for back pain. No joint pain, trauma. Heme: Negative for easy bruising, bleeding, lymphadenopathy. EXAM <RONNIE Retana - Last Filed: 11/02/21 17:28> Physical Exam Narrative Exam Narrative: CONST: Patient sitting in no acute distress. EYES: Normal inspection. NECK: Normal inspection. RESP: No respiratory distress, CTAB. CVS: Regular rate and rhythm, no murmur, no gallop. ABD: Soft and nontender, no guarding or rebound, nondistended. Back: Normal inspection, no CVA tenderness. Mild midline lumbar spinal tenderness without step-off or crepitus. SKIN: Color normal, no rash, warm, dry, intact. EXTREMITIES: Normal appearance, no pedal edema. 5/5 strength in bilateral hip flexion, knee flexion/extension, and DF/PF. Normal sensation to light touch. 2+ DP pulses. Negative straight leg raise bilaterally. NEURO: Oriented x4. PSYCH: Normal affect. Const Vital Signs: 11/02/21 12:34 11/02/21 16:40 Temperature 97.2 F L Temperature Source Temporal Pulse Rate 72 58 L Respiratory Rate 15 16 Blood Pressure 134/61 H 123/54 H Blood Pressure Mean 85 77 Pulse Ox 100 99 Oxygen Delivery Method Room Air Room Air <Dr. Johanna Chen DO - Last Filed: 11/06/21 14:43> Physical Exam Const Vital Signs: 11/02/21 12:34 11/02/21 16:40 Temperature 97.2 F L Temperature Source Temporal Pulse Rate 72 58 L Respiratory Rate 15 16 Blood Pressure 134/61 H 123/54 H Blood Pressure Mean 85 77 Pulse Ox 100 99 Oxygen Delivery Method Room Air Room Air MDM <RONNIE Retana - Last Filed: 11/02/21 17:28> [facility] Narrative Medical decision making narrative: Patient has had lumbar back pain over the last 3 months which is worse with movement. She was seen here previously and had x-rays. She presents with increased pain with movement since last night. She appears well and nontoxic. Vital signs are within normal limits. On exam her heart is regular rate and rhythm. Lungs clear. Abdomen soft and nontender. Her back appears normal with slight midline lumbar tenderness but no step-offs. Lower extremity MSPs and reflexes are intact. She has no red flag symptoms concerning for cauda equina syndrome or epidural abscess. Previous x-rays reviewed and show degenerative changes. A CT of the lumbar spine without contrast was obtained and shows mild compression fractures of L2 and L5 which are new since July 2021. This is consistent with her low back pain starting around 3 months ago. With no neurological deficits she is stable for outpatient follow-up with orthopedic spine (Dr. Tang). She received Percocet within the last week so I do not feel further opioids are indicated from the ER. I prescribed lidocaine patches and a prednisone burst x5 days. Patient was discharged in stable condition. Diagnosis 1. Chronic multilevel lumbar compression fractures Radiography Diagnostic Testing: Clinical Impression(s) from Imaging Studies Lumbar Spine CT 11/02/21 15:45 IMPRESSION: 1. Mild compression fracture of L2 is new since July 2021. 2. Mild L5 compression fracture new since July 2021. Electronically Signed: Dylan Rodas MD ([place]) at 16:15 EST , <Dr. Johanna Chen, DO - Last Filed: 11/06/21 14:43> MDM Radiography Diagnostic Testing: Clinical Impression(s) from Imaging Studies Lumbar Spine CT 11/02/21 15:45 IMPRESSION: 1. Mild compression fracture of L2 is new since July 2021. 2. Mild L5 compression fracture new since July 2021. Electronically Signed: Dylan Rodas MD ([place]) at 16:15 EST , Discharge Plan Triage Chief Complaint: Back ED Provider: Jackie Bills Dx/Rx/DC Orders Clinical Impression: Compression fracture Instructions: ED Fracture, Vertebral Compression Prescriptions: New lidocaine 5 % adhesive patch,medicated 1 patch topical DAILY 7 Days Qty: 1 RF: 0 prednisone 20 mg tablet 40 mg PO DAILY 5 Days Qty: 10 RF: 0 No Action citalopram 10 mg tablet 10 mg PO DAILY RF: 0 albuterol sulfate 90 mcg/actuation HFA aerosol inhaler 2 puff inhalation Q6H PRN (Reason: SOB) RF: 0 albuterol sulfate 2.5 MG/3 ML solution for nebulization 2.5 mg inhalation Q4H PRN PRN (Reason: Sob &/Or Wheezing) RF: 0 donepezil [Aricept] 10 mg tablet 10 mg PO DAILY RF: 0 amlodipine 5 mg tablet 5 mg PO DAILY RF: 0 Breo Ellipta 100-25 mcg/dose blister with device 1 - 2 inh INHALATION DAILY RF: 0 omeprazole 40 mg capsule,delayed release(DR/EC) 40 mg PO DAILY Qty: 30 RF: 1 ondansetron HCl 4 mg tablet 4 mg PO Q8H PRN (Reason: nausea and vomiting) Qty: 10 RF: 0 hydrocodone-acetaminophen [hydrocodone-acetaminophen] 1 TABLET tablet 1 tab PO Q6H PRN PRN (Reason: Pain) 3 Days Qty: 10 RF: 0 Primary Care Provider: Arnulfo Lynn Chi Referrals: Lan Tang DO [STAFF PHYSICIAN] - Arnulfo Lynn Chi, MD [Primary Care Provider] - Activity Restrictions/Additional Instructions: The CAT scan of your back showed that you have old compression fractures of the L2 and L5 vertebrae which are new since July 2021. This is around the time your back pain began 3 months ago. These are chronic but are likely the cause of your pain with increased movement. I prescribed lidocaine patches and prednisone and referred you to an orthopedic spine doctor. You need to call Dr. Tang to make an appointment. Disposition Disposition: Home, Self Care Discharge Date/Time: 11/02/21 17:50
--- NOTE | 2021-11-02 15:45 | CT_ITS ---
EXAM: CT LUMBAR SPINE WITHOUT INTRAVENOUS CONTRAST CLINICAL INDICATION: back pain TECHNIQUE: Helically acquired images were obtained of the lumbar spine without intravenous contrast. 2D reformats were reviewed. This CT exam was performed using one or more of the following dose reduction techniques: automated exposure control, adjustment of the mA and/or kV according to patient size, and/or use of iterative reconstruction technique. This report was created using [employer] report generation technology. COMPARISON: 07/04/2021. FINDINGS: VERTEBRAE: Mild compression fracture of L2 is new since prior x-ray. Mild L5 compression fracture new since July 2021. Anterior spondylosis at multiple lumbar levels. Mild retropulsion of L1 compression fracture causing mild canal narrowing. L2 compression fracture is stable since July 2021. No traumatic subluxation. No discrete lytic or blastic abnormality. DISCS/SPINAL CANAL/NEURAL FORAMINA: Bilateral foraminal narrowing at multiple levels, particularly L4-L5. VASCULATURE: Visualized abdominal aorta is not dilated. Atherosclerosis of the abdominal aorta and iliac arteries. LYMPH NODES: Unremarkable. No retroperitoneal adenopathy. CT/Spine Lumbar without Contrast IMPRESSION: 1. Mild compression fracture of L2 is new since July 2021. 2. Mild L5 compression fracture new since July 2021. Electronically Signed: Dylan Rodas MD ([place]) at 16:15 EST Reading Location ID and State: [facility] / [place] , Service support ,
[2021-11-02] MEDS: oxyCODONE 5 MG Tablet PO (15:57)
[2021-11-02] MEDS: Ondansetron ODT 4 MG Tablet PO (15:57)
[2021-11-02 16:40] VITALS: BP 123/54; PULSE 58; RESP 16; O2SAT 99
[2021-11-02] MEDS: Lidocaine 5% Patch 1 PATCH TOPICAL (17:48)
== END 2021-11-02 17:50 | disposition home or self-care (01) ==
PROVIDERS: Emergency Provider Physician Assistant; PCP Family Medicine Geriatric Medicine; Visit Provider Physician Assistant
DX: M48.56XA Collapsed vertebra, not elsewhere classified, lumbar region, initial encounter for fracture (principal); J44.9 Chronic obstructive pulmonary disease, unspecified; N18.30 Chronic kidney disease, stage 3 unspecified; K21.9 Gastro-esophageal reflux disease without esophagitis; I12.9 Hypertensive chronic kidney disease with stage 1 through stage 4 chronic kidney disease, or unspecified chronic kidney disease; Z86.73 Personal history of transient ischemic attack (TIA), and cerebral infarction without residual deficits; Z87.891 Personal history of nicotine dependence; Z86.16 Personal history of COVID-19; Z79.899 Other long term (current) drug therapy
CPT/HCPCS: 72131; 99284

== ENCOUNTER 2021-11-07 09:49 | Outpatient (CLI) | payer MEDICARE, MEDICAID, SELFPAY ==
--- NOTE | 2021-11-07 10:50 | CPS ---
Pt refused to do DLCO and remainder of test. No aerosol rx given.
--- NOTE | 2021-11-07 13:37 | PFT ---
INTRODUCTION: The patient is an 86-year-old female that presents for pulmonary function studies secondary to a diagnosis of shortness of breath. The patient refused to undergo diffusing capacity maneuvers. INTERPRETATION: Forced expiration spirometry demonstrates no evidence of a large airways obstructive ventilatory defect. Body plethysmography was performed and reveals lung volumes to be within normal limits. Spirograms are of suboptimal quality and terminate prior to 6 seconds, likely underestimating FVC. IMPRESSION: Normal spirometry and lung volumes.
== END 2021-11-07 23:59 | disposition home or self-care (01) ==
LOC: PSN 09:50
PROVIDERS: PCP Family Medicine Geriatric Medicine; Referring Provider Internal Medicine Critical Care Medicine; Visit Provider Internal Medicine Critical Care Medicine
DX: R06.02 Shortness of breath (principal); F17.211 Nicotine dependence, cigarettes, in remission
CPT/HCPCS: 94010; 94726

== ENCOUNTER 2021-11-09 09:07 | Outpatient (CLI) | payer MEDICARE, MEDICAID, SELFPAY ==
--- NOTE | 2021-11-09 09:14 | RAD_ITS ---
STUDY: X-RAY CHEST REASON FOR EXAM: Female, 86 years old. Chest pain/pressure TECHNIQUE: PA and lateral views of the chest. COMPARISON: 10/15/2021 FINDINGS: Lungs are expanded with stable granulomatous calcifications. No organizing infiltrate or effusion. Normal size heart. Normal mediastinum and rasheed. Normal visualized pulmonary arteries. There is atherosclerotic calcification of the aortic arch with tortuosity. There are diffuse degenerative changes of the visualized thoracic spine. Normal visualized ribs, clavicles, and shoulders. There is no demonstrated abnormality of the visualized soft tissue structures of the upper abdomen. RAD/Chest PA and Lateral IMPRESSION: No acute pulmonary process, no interval change Electronically Signed: Dileep Arriaza MD at 10:53 EST ,
[2021-11-09 12:17] LABS: Absolute Lymphocyte Count 0.71 X10^3/uL (0.83-4.51); Absolute Neutrophil Count 6.1 X10^3/uL (2.0-7.7); Basophil# 0.04 X10^3/uL; Basophil% 0.5 % (0-1); Eosinophil# 0.27 X10^3/uL; Eosinophils% 3.5 % (0-5); Hematocrit 20.5 % (37-47); Hemoglobin 6.2 g/dL (12.0-15.0); Lymphocyte # 0.71 X10^3/ul (0.83-4.51); Lymphocyte % 9.3 % (19-41); Mean Corp Hgb Conc 30.2 g/dL (32-36); Mean Corpuscular Hgb 27.9 pg (27.0-32.0); Mean Corpuscular Volume 92.3 fL (81-99); Mean Platelet Vol. 11.3 fl (6.2-12.0); Monocyte# 0.52 X10^3/uL; Monocyte% 6.8 % (0-10); NRBC Flagged by Analyzer 0 % (0-5); Neutrophil # 6.09 X10^3/uL (2.7-7.7); Neutrophil % 79.5 % (47-70); Platelet Count 417 K/mm3 (150-450); RBC Distribution Width SD 57.2 fl (35.1-43.9); Red Blood Count 2.22 M/mm3 (4.2-5.4); White Blood Count 7.7 K/mm3 (4.4-11.0)
[2021-11-09 12:53] LABS: AST(SGOT) 21 U/L (15-37); Alanine Aminotransfer ALT/SGPT 24 U/L (13-56); Albumin, Serum 3.4 g/dL (3.2-5.0); Alkaline Phosphatase 83 U/L (45-117); Anion Gap 5 (5-15); BUN 23 mg/dL (7-18); BUN/Creat Ratio 18.5 RATIO (10-20); Bilirubin, Direct 0.06 mg/dL (0.00-0.30); Calcium,Total 8.8 mg/dL (8.5-10.1); Chloride 106 mmol/L (98-107); Creatinine, Serum 1.24 mg/dL (0.55-1.02); EST Glomerular Filtration Rate 44 mL/min (>60); Est Glom Filt Rate - Afr Amer 53 mL/min (>60); Globulin 3.3 g/dL (2.2-4.2); Glucose 107 mg/dL (74-106); Protein, Total 6.7 g/dL (6.4-8.2); Sodium Level 138 mmol/L (136-145); T4 Free Direct 1.12 ng/dL (0.76-1.46); Thyroid Stim Hormone (TSH) 1.15 uIU/mL (0.358-3.74)
[2021-11-09 13:25] LABS: HIV - WCH Non-Reactive (Nonreactive); Hepatitis C Antibody Non-Reactive (Nonreactive)
[2021-11-11 10:40] LABS: Anti-Nuclear Antibody Test Negative (.)
[2021-11-14 08:00] LABS: Immunoglobulin A 187 mg/dL (64-422); Immunoglobulin E 16 IU/mL (6-495); Immunoglobulin G 763 mg/dL (586-1602); Immunoglobulin M 104 mg/dL (26-217); PROEL- A/G Ratio 1.2 (0.7-1.7); PROEL- Albumin 3.3 g/dL (2.9-4.4); PROEL- Alpha-1 Globulin 0.2 g/dL (0.0-0.4); PROEL- Alpha-2 Globulin 0.8 g/dL (0.4-1.0); PROEL- Gamma Globulin 0.8 g/dL (0.4-1.8); PROEL- Globulin, Total 2.8 g/dL (2.2-3.9); PROEL- TOTAL PROTEIN 6.1 g/dL (6.0-8.5); PROELU- Albumin, Urine 20.9 % (.); PROELU- Alpha-1-Globulin,Ur 16.9 % (.); PROELU- Alpha-2-Globulin,Ur 17.4 % (.); PROELU- Beta Globulin, Ur 14.7 % (.); PROELU- Gamma Globulin, Ur 30.1 % (.)
[2021-11-14 16:48] LABS: Total Protein, Ur < 4.0 mg/dL (Not Estab.); t-Transglutaminase IgA <2 U/mL (0-3)
== END 2021-11-09 23:59 | disposition home or self-care (01) ==
PROVIDERS: PCP Family Medicine Geriatric Medicine; Referring Provider Dermatology; Visit Provider Dermatology
DX: L29.8 Other pruritus (principal); D64.9 Anemia, unspecified
CPT/HCPCS: 36415; 71046; 80048; 80076; 82784; 82785; 83516; 84165; 84166; 84439; 84443; 85025; 86038; 86334; 86703; 86803

== ENCOUNTER 2021-11-15 15:11 | Outpatient (CLI) | payer MEDICARE, MEDICAID, SELFPAY ==
--- NOTE | 2021-11-15 15:40 | RAD_ITS ---
STUDY: XR Chest 2 Views 11/15/2021 2:41 PM REASON FOR EXAM: Female, 86 years old. CHEST PAIN SOB COMPARISON: 11/09/2021 TECHNIQUE: XR Chest 2 Views FINDINGS: There is no demonstrated pleural abnormality. Normal heart size. Normal mediastinum. Normal rasheed. Prominent appearing increased interstitial lung markings. Normal visualized pulmonary arteries. There is atherosclerotic calcification of the aortic arch with tortuosity. There are diffuse degenerative changes of the visualized thoracic spine. There is degenerative osteoarthritis of the bilateral shoulders. There is a hiatal hernia. RAD/Chest PA and Lateral IMPRESSION: There are no acute findings. Electronically Signed: Yash Ag MD at 17:11 EDT ,
[2021-11-15 17:20] LABS: Absolute Lymphocyte Count 0.81 X10^3/uL (0.83-4.51); Absolute Neutrophil Count 7.5 X10^3/uL (2.0-7.7); Basophil# 0.03 X10^3/uL; Basophil% 0.3 % (0-1); Eosinophil# 0.12 X10^3/uL; Eosinophils% 1.3 % (0-5); Hematocrit 15.7 % (37-47); Hemoglobin 4.7 g/dL (12.0-15.0); Lymphocyte # 0.81 X10^3/ul (0.83-4.51); Lymphocyte % 8.8 % (19-41); Mean Corp Hgb Conc 29.9 g/dL (32-36); Mean Corpuscular Hgb 27.2 pg (27.0-32.0); Mean Corpuscular Volume 90.8 fL (81-99); Monocyte% 7.6 % (0-10); NRBC Flagged by Analyzer 0 % (0-5); Neutrophil # 7.47 X10^3/uL (2.7-7.7); POSITIVE COUNT YES; Platelet Count 363 K/mm3 (150-450); RBC Distribution Width CV 17.2 % (11.6-14.6); RBC Distribution Width SD 56.6 fl (35.1-43.9); Red Blood Count 1.73 M/mm3 (4.2-5.4); White Blood Count 9.2 K/mm3 (4.4-11.0)
[2021-11-15 17:33] LABS: Neutrophil % 81.7 % (47-70)
[2021-11-15 17:38] LABS: Anion Gap 5 (5-15); BNP,B-Type NATRIURETIC PEPTIDE 607.8 pg/mL (0-100); BUN 35 mg/dL (7-18); BUN/Creat Ratio 27.3 RATIO (10-20); Calcium,Total 8.7 mg/dL (8.5-10.1); Chloride 108 mmol/L (98-107); Creatinine, Serum 1.28 mg/dL (0.55-1.02); EST Glomerular Filtration Rate 42 mL/min (>60); Est Glom Filt Rate - Afr Amer 51 mL/min (>60); Glucose 114 mg/dL (74-106); Potassium 4.6 mmol/L (3.5-5.1); Sodium Level 137 mmol/L (136-145); Thyroid Stim Hormone (TSH) 0.87 uIU/mL (0.358-3.74)
[2021-11-15 18:10] LABS: Platelet Estimate ADEQUATE (ADEQ); Red Cell Morphology NORM C+C NORMAL (NORM C&C)
[2021-11-17 13:00] LABS: Pathologist Review Reviewed
== END 2021-11-15 23:59 | disposition home or self-care (01) ==
LOC: POLAB3 15:12 → RAD 15:30
PROVIDERS: PCP Family Medicine Geriatric Medicine; Referring Provider Family Medicine Geriatric Medicine; Visit Provider Family Medicine Geriatric Medicine
DX: I50.9 Heart failure, unspecified (principal); R06.02 Shortness of breath; R60.9 Edema, unspecified
CPT/HCPCS: 36415; 71046; 80048; 83880; 84443; 85025; 86850; 86900; 86901; 86920; 86922

== ENCOUNTER 2021-11-16 08:28 | Outpatient (CLI) | payer MEDICARE, MEDICAID, SELFPAY ==
[2021-11-16] VITALS (7 sets, daily range): BP systolic 117–135; BP diastolic 47–74; PULSE 68–83; RESP 16–20; TEMP 36.4–36.8; O2SAT 98–99; BMI 22.4
[2021-11-16] MEDS: Furosemide 20 MG/2 ML VIAL IV (11:00)
== END 2021-11-16 23:59 | disposition home or self-care (01) ==
LOC: MEDOUTP 08:28
PROVIDERS: PCP Family Medicine Geriatric Medicine; Referring Provider Family Medicine Geriatric Medicine; Visit Provider Family Medicine Geriatric Medicine
DX: D64.9 Anemia, unspecified (principal)
CPT/HCPCS: 36415; 36430; 86850; 86900; 86901; 86920; 86922; J7040; P9016; A4216; J1940

== ENCOUNTER 2021-11-17 09:22 | Outpatient (CLI) | payer MEDICARE, MEDICAID, SELFPAY ==
[2021-11-17 09:55] LABS: Absolute Lymphocyte Count 0.57 X10^3/uL (0.83-4.51); Absolute Neutrophil Count 6.1 X10^3/uL (2.0-7.7); Basophil# 0.03 X10^3/uL; Basophil% 0.4 % (0-1); Eosinophils% 1.3 % (0-5); Hematocrit 26.2 % (37-47); Hemoglobin 8.7 g/dL (12.0-15.0); Lymphocyte # 0.57 X10^3/ul (0.83-4.51); Lymphocyte % 7.5 % (19-41); Mean Corp Hgb Conc 33.2 g/dL (32-36); Mean Corpuscular Hgb 28.9 pg (27.0-32.0); Mean Platelet Vol. 9.5 fl (6.2-12.0); Monocyte# 0.78 X10^3/uL; Monocyte% 10.2 % (0-10); NRBC Flagged by Analyzer 0 % (0-5); Neutrophil # 6.11 X10^3/uL (2.7-7.7); Neutrophil % 80.3 % (47-70); POSITIVE DIFFERENTIAL YES; Platelet Count 329 K/mm3 (150-450); RBC Distribution Width CV 15.6 % (11.6-14.6); RBC Distribution Width SD 49.3 fl (35.1-43.9); Red Blood Count 3.01 M/mm3 (4.2-5.4); White Blood Count 7.6 K/mm3 (4.4-11.0)
[2021-11-17 09:57] LABS: Differential Indicated SCAN CRITERIA MET
[2021-11-17 10:08] LABS: Anion Gap 5 (5-15); BUN 28 mg/dL (7-18); BUN/Creat Ratio 19.4 RATIO (10-20); Calcium,Total 9.3 mg/dL (8.5-10.1); Chloride 104 mmol/L (98-107); Creatinine, Serum 1.44 mg/dL (0.55-1.02); EST Glomerular Filtration Rate 37 mL/min (>60); Est Glom Filt Rate - Afr Amer 44 mL/min (>60); Glucose 130 mg/dL (74-106); Potassium 3.8 mmol/L (3.5-5.1); Sodium Level 138 mmol/L (136-145)
[2021-11-17 10:19] LABS: Platelet Estimate ADEQUATE (ADEQ)
[2021-11-17 10:20] LABS: Polychromasia 1+
== END 2021-11-17 23:59 | disposition home or self-care (01) ==
LOC: POLAB3 09:23 → LABSPEC 09:24
PROVIDERS: PCP Family Medicine Geriatric Medicine; Visit Provider Family Medicine Geriatric Medicine
DX: D64.9 Anemia, unspecified (principal); N18.32 Chronic kidney disease, stage 3b
CPT/HCPCS: 36415; 80048; 82274; 85025

== ENCOUNTER 2021-11-28 10:10 | Outpatient (CLI) | payer MEDICARE, MEDICAID, SELFPAY ==
[2021-11-28 10:56] LABS: Absolute Lymphocyte Count 0.61 X10^3/uL (0.83-4.51); Absolute Neutrophil Count 6.6 X10^3/uL (2.0-7.7); Basophil# 0.05 X10^3/uL; Basophil% 0.6 % (0-1); Eosinophil# 0.06 X10^3/uL; Eosinophils% 0.7 % (0-5); Hematocrit 24.3 % (37-47); Hemoglobin 7.4 g/dL (12.0-15.0); Lymphocyte # 0.61 X10^3/ul (0.83-4.51); Lymphocyte % 7.6 % (19-41); Mean Corp Hgb Conc 30.5 g/dL (32-36); Mean Corpuscular Hgb 27.5 pg (27.0-32.0); Mean Corpuscular Volume 90.3 fL (81-99); Mean Platelet Vol. 11.3 fl (6.2-12.0); Monocyte# 0.62 X10^3/uL; Monocyte% 7.7 % (0-10); NRBC Flagged by Analyzer 0 % (0-5); Neutrophil # 6.57 X10^3/uL (2.7-7.7); Platelet Count 326 K/mm3 (150-450); RBC Distribution Width CV 16.3 % (11.6-14.6); RBC Distribution Width SD 53.6 fl (35.1-43.9); Red Blood Count 2.69 M/mm3 (4.2-5.4)
[2021-11-28 11:04] LABS: Anion Gap 6 (5-15); BUN 25 mg/dL (7-18); BUN/Creat Ratio 17.7 RATIO (10-20); Calcium,Total 9.3 mg/dL (8.5-10.1); Chloride 107 mmol/L (98-107); Creatinine, Serum 1.41 mg/dL (0.55-1.02); EST Glomerular Filtration Rate 38 mL/min (>60); Est Glom Filt Rate - Afr Amer 45 mL/min (>60); Glucose 121 mg/dL (74-106); Potassium 3.3 mmol/L (3.5-5.1); Sodium Level 140 mmol/L (136-145)
== END 2021-11-28 23:59 | disposition home or self-care (01) ==
LOC: POLAB3 10:12
PROVIDERS: PCP Family Medicine Geriatric Medicine; Visit Provider Family Medicine Geriatric Medicine
DX: D62 Acute posthemorrhagic anemia (principal); N18.32 Chronic kidney disease, stage 3b
CPT/HCPCS: 36415; 80048; 85025

== ENCOUNTER 2021-12-05 08:35 | Outpatient (CLI) | payer MEDICARE, MEDICAID, SELFPAY ==
[2021-12-05 10:27] LABS: Anion Gap 5 (5-15); BUN 16 mg/dL (7-18); BUN/Creat Ratio 10.5 RATIO (10-20); Calcium,Total 8.9 mg/dL (8.5-10.1); Chloride 106 mmol/L (98-107); Creatinine, Serum 1.52 mg/dL (0.55-1.02); EST Glomerular Filtration Rate 34 mL/min (>60); Est Glom Filt Rate - Afr Amer 42 mL/min (>60); Glucose 129 mg/dL (74-106); Sodium Level 138 mmol/L (136-145)
[2021-12-05 12:05] LABS: Absolute Lymphocyte Count 0.66 X10^3/uL (0.83-4.51); Absolute Neutrophil Count 4.6 X10^3/uL (2.0-7.7); Basophil# 0.05 X10^3/uL; Basophil% 0.8 % (0-1); Eosinophil# 0.13 X10^3/uL; Eosinophils% 2.2 % (0-5); Hematocrit 21.9 % (37-47); Hemoglobin 6.3 g/dL (12.0-15.0); Lymphocyte # 0.66 X10^3/ul (0.83-4.51); Lymphocyte % 11.2 % (19-41); Mean Corp Hgb Conc 28.8 g/dL (32-36); Mean Corpuscular Hgb 25.7 pg (27.0-32.0); Mean Corpuscular Volume 89.4 fL (81-99); Mean Platelet Vol. 11.1 fl (6.2-12.0); Monocyte# 0.47 X10^3/uL; NRBC Flagged by Analyzer 0 % (0-5); Neutrophil # 4.56 X10^3/uL (2.7-7.7); Neutrophil % 77.5 % (47-70); Platelet Count 414 K/mm3 (150-450); RBC Distribution Width CV 16.7 % (11.6-14.6); RBC Distribution Width SD 54.4 fl (35.1-43.9); Red Blood Count 2.45 M/mm3 (4.2-5.4); White Blood Count 5.9 K/mm3 (4.4-11.0)
== END 2021-12-05 23:59 | disposition home or self-care (01) ==
LOC: MTLAB 08:37
PROVIDERS: PCP Family Medicine Geriatric Medicine; Visit Provider Family Medicine Geriatric Medicine
DX: D64.9 Anemia, unspecified (principal); E87.6 Hypokalemia
CPT/HCPCS: 36415; 80048; 85025

== ENCOUNTER 2021-12-06 08:54 | Outpatient (CLI) | payer MEDICARE, MEDICAID, SELFPAY ==
[2021-12-06] MEDS: 0.9% NaCl Peripheral Flush Adult/Peds IV (09:12)
[2021-12-06 09:33] VITALS: BP 140/88; PULSE 66; RESP 12; TEMP 36.7; O2SAT 98; BMI 22.4
[2021-12-06 09:53] VITALS: BP 140/67; PULSE 65; RESP 12; TEMP 36.7; O2SAT 93
[2021-12-06 10:56] VITALS: BP 143/67; PULSE 65; RESP 16; TEMP 36.4; O2SAT 97
[2021-12-06 11:33] VITALS: BP 138/75; PULSE 52; RESP 16; TEMP 36.2; O2SAT 99
[2021-12-06] MEDS: Furosemide 20 MG/2 ML VIAL IV (11:36)
[2021-12-06 11:58] VITALS: BP 158/73; PULSE 75; RESP 16; TEMP 36.5; O2SAT 99
[2021-12-06 12:13] VITALS: BP 154/82; PULSE 76; RESP 16; TEMP 36.6
== END 2021-12-06 23:59 | disposition home or self-care (01) ==
LOC: MEDOUTP 08:54
PROVIDERS: PCP Family Medicine Geriatric Medicine; Referring Provider Family Medicine Geriatric Medicine; Visit Provider Family Medicine Geriatric Medicine
DX: D64.9 Anemia, unspecified (principal); E87.6 Hypokalemia
CPT/HCPCS: 36415; 36430; 80048; 85025; 86850; 86900; 86901; 86920; 86922; J7040; P9016; A4216; J1940

== ENCOUNTER → 2021-12-14 | Outpatient (REF) | payer MEDICARE, MEDICAID, SELFPAY | END | disposition home or self-care (01) | LOC: OLS.SWAL 09:30 | PROVIDERS: PCP Family Medicine Geriatric Medicine; Visit Provider Family Medicine Geriatric Medicine | DX: D64.9 Anemia, unspecified (principal) | CPT/HCPCS: 82274 ==

== ENCOUNTER 2021-12-15 13:47 | Outpatient (CLI) | payer MEDICARE, MEDICAID, SELFPAY ==
--- NOTE | 2021-12-15 13:48 | VDLE_ITS ---
Reason For Study: Swelling RIGHT LEFT GSV is normal. GSV is normal. CFV is compressible, spontaneous, phasic, CFV is compressible, spontaneous, phasic, competent and demonstrates normal competent, and demonstrates normal augmentation. augmentation. FV is compressible, spontaneous, phasic, FV is compressible, spontaneous, phasic, competent and demonstrates normal competent and demonstrates normal augmentation. augmentation. POP V is compressible, spontaneous, phasic, POP V is compressible, spontaneous, phasic, competent and demonstrates normal competent and demonstrates normal augmentation. augmentation. T/P Trunk is compressible. T/P Trunk is compressible. PTV is compressible. PTV is compressible. RT PerV is compressible. LT PerV is compressible. Procedure This is a venous duplex using B-mode, color flow and spectral Doppler. Exam performed in department. A preliminary report was called and/or faxed to [facility]. VL/Venous Duplex US - Priyank Extrem Interpretation Summary No evidence for acute deep venous thrombosis bilateral lower extremities with p atent and compressible bilateral great saphenous veins. Ordering Physician: Brennon Meza Referring Physician: Arnulfo Lynn Chi Performed By: Suzy Reyes RVT
== END 2021-12-15 23:59 | disposition home or self-care (01) ==
LOC: CVS 13:47
PROVIDERS: PCP Family Medicine Geriatric Medicine; Visit Provider Internal Medicine Medical Oncology
DX: R60.0 Localized edema (principal)
CPT/HCPCS: 93970

== ENCOUNTER 2022-01-03 22:21 | Emergency (ER) | payer MEDICARE, MEDICAID, SELFPAY ==
[2022-01-03 22:22] VITALS: BP 172/98; PULSE 83; RESP 16; TEMP 36.2; O2SAT 95; BMI 24.2
--- NOTE | 2022-01-03 22:37 | RAD_ITS ---
STUDY: X-RAY - LUMBAR SPINE REASON FOR EXAM: Female, 86 years old. pain TECHNIQUE: AP, lateral and oblique view(s) of the lumbar spine were obtained. COMPARISON: 10/26/2021 FINDINGS: Normal lumbar lordosis. There is mild scoliosis. There is a normal alignment of the vertebrae. Normal vertebral bodies and endplates. There is mild indentation of the superior endplate of L2, L3, and L5. Normal disc space heights. The soft tissue structures are unremarkable. RAD/L/S Spine Min 4 Views IMPRESSION: There is mild indentation of the superior endplate of L2, L3 and L5. Electronically Signed: Sergei Barboza MD at 23:28 EDT ,
[2022-01-03] MEDS: Ondansetron ODT 4 MG Tablet PO (22:50)
[2022-01-03] MEDS: Morphine 4 MG/ML Syringe IM (22:50)
[2022-01-03] MEDS: Orphenadrine 60 MG/2 ML Ampul IM (22:50)
--- NOTE | 2022-01-03 23:02 | EDS_ITS ---
HPI History of Present Illness Chief Complaint: Back Narrative Narrative: Patient is an 86-year-old female with past medical history of chronic kidney disease as well as early Alzheimer's and previous back pain who was sent in from the senior care secondary to back pain throughout the day. Patient states there was no trauma or excessive activity but she awoke this morning and felt pain across her entire low back. She denies any radiation of the pain into the abdomen or down the legs. She denies any loss of bowel or bladder control or IV drug use. She denies any hematuria or dysuria. She states the pain is worse with motion. She reports that she has had Tylenol throughout the day from the senior care and has been no symptom improvement and secondary to this comes to the hospital for evaluation. [facility] Medical History Anemia Anxiety Anxiety and depression Arthritis Bladder disease Bronchiectasis Chronic anemia Chronic renal failure, stage 3 (moderate) CKD (chronic kidney disease), stage III Contusion of left foot, initial encounter COPD (chronic obstructive pulmonary disease) CVA (cerebral vascular accident) Dementia Disorder of bone and cartilage Diverticula of colon Duodenal ulcer Dysmetabolic syndrome Early onset Alzheimer's dementia Fatigue Former smoker GERD (gastroesophageal reflux disease) History of echocardiogram History of edema HLD (hyperlipidemia) HTN (hypertension) Hypercholesteremia Hypertrophy of nasal turbinates Irritant dermatitis Lichen sclerosus Lower extremity edema Multiple pulmonary nodules Obesity Osteopenia Pneumonia Pneumonia due to COVID-19 virus Seborrheic keratoses Severe anemia Shortness of breath on exertion TIA (transient ischemic attack) Tobacco abuse Urinary, incontinence, stress female Vitamin B12 deficiency Vitamin D deficiency Wears dentures Wears glasses Yeast dermatitis Home Medications albuterol sulfate 2.5 mg INHALATION Q4H PRN PRN 03/12/20 [History Last Taken Unknown] Breo Ellipta 1 - 2 inh INHALATION DAILY 09/14/21 [History Last Taken Unknown] amlodipine 5 mg PO DAILY 09/14/21 [History Last Taken Unknown] albuterol sulfate 90 mcg/actuation aerosol inhaler 2 puff INHALATION Q6H PRN 10/19/21 [History Last Taken Unknown] citalopram 10 mg tablet 10 mg PO DAILY 10/19/21 [History Last Taken Unknown] hydrocodone-acetaminophen 1 tab PO Q6H PRN PRN 3 Days #10 tablet 10/26/21 [Rx Last Taken Unknown] furosemide 40 mg tablet 40 mg PO DAILY 12/12/21 [History Last Taken Unknown] gabapentin 100 mg capsule 100 mg PO DAILY 12/12/21 [History Last Taken Unknown] hydroxyzine HCl 10 mg tablet 50 mg PO QHS tab 12/12/21 [History Last Taken Unknown] memantine 10 mg tablet 10 mg PO QPM 12/12/21 [History Last Taken Unknown] nystatin 1 applic TOPICAL BID 01/03/22 [History Last Taken Unknown] polysaccharide iron complex [Ferrex 150] 150 mg PO DAILY 01/03/22 [History Last Taken Unknown] potassium chloride 20 meq PO DAILY 01/03/22 [History Last Taken Unknown] methocarbamol 500 mg PO 4X/DAY PRN PRN #40 tab 01/04/22 [Rx Last Taken Unknown] oxycodone-acetaminophen [Percocet] 1 tab PO Q6H PRN 3 Days #12 tab 01/04/22 [Rx Last Taken Unknown] Allergy/AdvReac Type Severity Reaction Status Date / Time lisinopril AdvReac Swelling Verified 12/29/21 11:00 Family History (Updated 01/03/22 @ 23:[address] Krystal Boucher MD) Father Cancer Father with hx prostate CA. Diabetes Mother Breast cancer Surgical History History of bladder suspension procedure History of esophagogastroduodenoscopy (EGD) History of surgery Hx of tonsillectomy Social History household members: none Smoking Status: Former smoker how long ago did patient quit smoking: Patient quit smoking approximately 5 years ago. alcohol intake: never substance use type: does not use ROS ROS ED Constitutional Constitutional ED: Denies chills or fever(s) ENT ENT ED: Denies sore throat Cardiovascular Cardiovascular: Denies chest pain Respiratory/Chest Respiratory/Chest: Denies cough or dyspnea Gastrointestinal Gastrointestinal: Denies abdominal pain, diarrhea, nausea or vomiting Genitourinary Genitourinary ED: Denies dysuria or hematuria Musculoskeletal Musculoskeletal: Reports back pain; Denies myalgias Integumentary Denies rash Neurologic Neurologic: Denies headache(s) Hematologic/Lymphatic Hematologic/Lymphatic: Denies easy bleeding or easy bruising EXAM Physical Exam Const Vital Signs: 01/03/22 22:22 Temperature 97.1 F L Temperature Source Temporal Pulse Rate 83 Respiratory Rate 16 Blood Pressure 172/98 H Blood Pressure Mean 122 Pulse Ox 95 Oxygen Delivery Method Room Air Positive well nourished and well developed General Appearance ED: well developed Eyes PERRL and EOMs intact bilaterally Neck supple Resp normal respiratory effort and clear to auscultation bilaterally Cardio regular rate and regular rhythm Rate: other Other Details: Radial pulses are plus 2 out of 4 bilaterally are equal and symmetric GI normal to inspection, nondistended, normoactive bowel sounds, non-tender, non- distended and no masses GI Narrative: No voluntary guarding or rigidity no pulsatile mass Auscultation: normoactive bowel sounds Palpation: soft Back/Spine Back/Spine Narrative: No bony deformity or step-off of the thoracic or lumbar spine but there is midline pain in the lumbar spine with palpation. There is also pain with palpation of the bilateral paralumbar muscle belly and this worsens with flexion and extension and rotation. No saddle anesthesia. Negative straight leg raise. No clonus or Babinski. Patellar reflexes are plus 1 out of 4 bilaterally. Extremity Extremity Narrative: Trace pitting edema to the bilateral lower extremities that is equal and symmetric with negative Homans' sign bilaterally Neuro oriented x3 and CN's II-XII intact bilaterally Sensorium / Orientation: alert Motor Exam: strength 5/5 throughout Psych mental status grossly normal Skin no rashes or lesions noted MDM MDM MDM Narrative Medical decision making narrative: Patient presented to the ER mildly hypertensive but does have a history of this and is in pain. Otherwise vitals are stable. Patient denied any trauma or recent excessive activity. She also had no risk factors for cauda equina or epidural abscess. As she reported that the pain was worse with motion as well as with palpation on exam I did not feel there is need for work-up other than an x-ray. X-ray showed chronic derangement to her lumbar spine which is consistent with her previous CT and x-ray from October and October of this year. The patient was given IM Norflex morphine and Dilaudid and did have improvement of her pain. Therefore at this time as I have low concern for underlying infectious or vascular process causing her symptoms and the pain has improved with treatment and the bony derangements are chronic there is no need for further work-up and patient can be discharged back to the senior care. Radiography Diagnostic Testing: Clinical Impression(s) from Imaging Studies Lumbar Spine X-Ray 01/03/22 22:37 IMPRESSION: There is mild indentation of the superior endplate of L2, L3 and L5. Electronically Signed: Sergei Barboza MD at 23:28 EDT Reading Location ID and State: [address] [place] [address] Tel , Service support , Lumbar spine x-ray as interpreted by the emergency medicine physician reveals chronic degeneration without acute fracture or dislocation Discharge Plan Triage Chief Complaint: Back ED Provider: Charles Woodard Dx/Rx/DC Orders Clinical Impression: Acute exacerbation of chronic low back pain, Anemia, Chronic kidney disease Instructions: ED Back Pain (Acute or Chronic) Prescriptions: New methocarbamol 500 mg tablet 500 mg PO 4X/DAY PRN PRN (Reason: Muscle pain/spasm) Qty: 40 RF: 0 oxycodone-acetaminophen [Percocet] 5-325 mg tablet 1 tab PO Q6H PRN (Reason: pain) 3 Days Qty: 12 RF: 0 No Action citalopram 10 mg tablet 10 mg PO DAILY RF: 0 albuterol sulfate 90 mcg/actuation HFA aerosol inhaler 2 puff inhalation Q6H PRN (Reason: SOB) RF: 0 gabapentin 100 mg capsule 100 mg PO DAILY RF: 0 hydroxyzine HCl 10 mg tablet 50 mg PO QHS RF: 0 furosemide [Lasix] 40 mg tablet 40 mg PO DAILY RF: 0 memantine 10 mg tablet 10 mg PO QPM RF: 0 albuterol sulfate 2.5 MG/3 ML solution for nebulization 2.5 mg inhalation Q4H PRN PRN (Reason: Sob &/Or Wheezing) RF: 0 amlodipine 5 mg tablet 5 mg PO DAILY RF: 0 Breo Ellipta 100-25 mcg/dose blister with device 1 - 2 inh INHALATION DAILY RF: 0 hydrocodone-acetaminophen [hydrocodone-acetaminophen] 1 TABLET tablet 1 tab PO Q6H PRN PRN (Reason: Pain) 3 Days Qty: 10 RF: 0 polysaccharide iron complex [Ferrex 150] 150 mg iron Capsule 150 mg PO DAILY RF: 0 nystatin 100,000 unit/gram Powder 1 applic TOPICAL BID RF: 0 potassium chloride 20 mEq Tablet Extended Release 20 meq PO DAILY RF: 0 Primary Care Provider: Arnulfo Lynn Chi Referrals: Arnulfo Lynn Chi, MD [Primary Care Provider] - Disposition Disposition: Home, Self Care
[2022-01-03] MEDS: HYDROmorphone 1 MG/ML Syringe IM (23:57)
--- NOTE | 2022-01-04 00:54 | NURSING ---
left message for nurse at [facility] [place] discharge instructions included left call back number if pt wants verbal report or has questions.
[2022-01-04 01:19] VITALS: BP 108/68; PULSE 85; RESP 18; O2SAT 95
--- NOTE | 2022-01-04 08:14 | ED.RN ---
pts family request her prescriptions be sent to the longterm. explained it is not on our option list so deleted all the pharmacies so she can get a paper script.
== END 2022-01-04 01:19 | disposition home or self-care (01) ==
PROVIDERS: Emergency Provider Emergency Medicine; PCP Family Medicine Geriatric Medicine; Visit Provider Emergency Medicine
DX: M54.50 Low back pain, unspecified (principal); G30.9 Alzheimer's disease, unspecified; J44.9 Chronic obstructive pulmonary disease, unspecified; N18.30 Chronic kidney disease, stage 3 unspecified; G89.29 Other chronic pain; I12.9 Hypertensive chronic kidney disease with stage 1 through stage 4 chronic kidney disease, or unspecified chronic kidney disease; D64.9 Anemia, unspecified; E78.00 Pure hypercholesterolemia, unspecified; Z87.891 Personal history of nicotine dependence; Z79.899 Other long term (current) drug therapy; Z86.711 Personal history of pulmonary embolism; Z86.16 Personal history of COVID-19
CPT/HCPCS: 72110; 96372; 99284

== ENCOUNTER 2022-01-07 22:56 | Emergency (ER) | payer MEDICARE, MEDICAID, SELFPAY ==
--- NOTE | 2022-01-07 | RAD_ITS ---
STUDY: CHEST SERIES-PA AND LATERAL VIEWS OF 0010 HOURS ON 01/08/2022 REASON FOR EXAM: 86-year-old female with dyspnea. TECHNIQUE: A standard 2 view chest x-ray was performed per protocol. COMPARISON: None. FINDINGS: Mild demineralization. Mild cardiomegaly without heart failure. Mild emphysema. Moderate size 11.6 cm in diameter hiatal hernia. Mild atelectatic change in the right lower lobe. Bosselated right hemidiaphragm. No confluent infiltrates, atelectasis, or effusion. No pulmonary mass lesions. 4 mm calcified granuloma in the mid left lung. RAD/Chest PA and Lateral IMPRESSION: 1. Mild cardiomegaly without heart failure. 2. Mild emphysema. 3. Presence of a 4 mm calcified granuloma in the mid left lung. 4. Mild atelectatic change in the right lower lobe. 5. No other evidence of active cardiopulmonary disease. 6. Moderate size 11.6 cm in diameter hiatal hernia. Electronically Signed: Sergei Lisa MD at 0:29 EDT ,
[2022-01-07 22:57] VITALS: BP 172/85; PULSE 66; RESP 24; TEMP 36.7; O2SAT 98; BMI 25.0
--- NOTE | 2022-01-07 23:39 | RAD_ITS ---
STUDY: LIMITED LUMBOSACRAL SPINE X-RAY SERIES--2 VIEWS OF 0013 HOURS ON 01/08/2022 REASON FOR EXAM: 86-year-old female with back pain. TECHNIQUE: 2 view(s) of the lumbar spine were obtained. COMPARISON: None FINDINGS: [id number] demineralization. Mild lumbar levoscoliosis. Marked T12 vertebral body compression fracture. Mild L2 and L3 vertebral body compression fractures. 5 mm forward subluxation of L4 with respect to L5. Moderate narrowing L4-5 and L5-S1 intervertebral disc spaces. Intact pedicles and processes. Heavily calcified abdominal aorta without evidence of aneurysmal dilatation. . RAD/Lumbar Spine 2 or 3 Views IMPRESSION: 1. Mild to moderate demineralization. 2. Mild lumbar levoscoliosis. 3. Marked T12 and mild L2 and L3 vertebral body compression fractures. 4. Presence of 5 mm forward subluxation of L4 with respect to L5. 5. Moderate narrowing of the L4-5 and L5-S1 intervertebral disc spaces. 6. Heavily calcified abdominal aorta without aneurysmal dilatation. Electronically Signed: Sergei Lisa MD at 0:34 EDT ,
[2022-01-08 00:18] LABS: BNP,B-Type NATRIURETIC PEPTIDE 184.2 pg/mL (0-100)
[2022-01-08] MEDS: Ondansetron 4 MG/2 ML Vial IV (00:18)
[2022-01-08] MEDS: Orphenadrine 60 MG/2 ML Ampul IV (00:18)
[2022-01-08] MEDS: Morphine 2 MG/ML Syringe IV (00:18)
[2022-01-08 00:22] LABS: Anion Gap 8 (5-15); BUN 11 mg/dL (7-18); BUN/Creat Ratio 12.5 RATIO (10-20); Calcium,Total 9.1 mg/dL (8.5-10.1); Chloride 94 mmol/L (98-107); Creatinine, Serum 0.88 mg/dL (0.55-1.02); EST Glomerular Filtration Rate 64 mL/min (>60); Est Glom Filt Rate - Afr Amer 78 mL/min (>60); Estimated Creatinine Clearance 44.63 ml/min; Glucose 123 mg/dL (74-106); Magnesium 1.8 mg/dL (1.6-2.6); Potassium 3.7 mmol/L (3.5-5.1); Sodium Level 127 mmol/L (136-145); Troponin-I HS 17 pg/mL (3.0-54.0)
[2022-01-08 00:25] LABS: Absolute Lymphocyte Count 0.26 X10^3/uL (0.83-4.51); Basophil# 0.03 X10^3/uL; Basophil% 0.5 % (0-1); Differential Comment SCANNED; Differential Indicated SCAN CRITERIA MET; Eosinophil# 0.05 X10^3/uL; Eosinophils% 0.9 % (0-5); Hemoglobin 10.3 g/dL (12.0-15.0); Lymphocyte # 0.26 X10^3/ul (0.83-4.51); Lymphocyte % 4.4 % (19-41); Mean Corp Hgb Conc 32.2 g/dL (32-36); Mean Corpuscular Hgb 28.7 pg (27.0-32.0); Mean Corpuscular Volume 89.1 fL (81-99); Mean Platelet Vol. 9.2 fl (6.2-12.0); Monocyte% 8.5 % (0-10); NRBC Flagged by Analyzer 0 % (0-5); Neutrophil % 85.2 % (47-70); POSITIVE DIFFERENTIAL YES; POSITIVE MORPHOLOGY YES; Platelet Count 271 K/mm3 (150-450); RBC Distribution Width CV 22.4 % (11.6-14.6); RBC Distribution Width SD 72.7 fl (35.1-43.9); Red Blood Count 3.59 M/mm3 (4.2-5.4); White Blood Count 5.9 K/mm3 (4.4-11.0)
[2022-01-08 00:26] LABS: Anisocytosis 2+; Macrocytosis 1+; Microcytosis 1+
[2022-01-08 00:27] VITALS: O2SAT 84
[2022-01-08 00:29] LABS: Polychromasia RARE
[2022-01-08 00:52] LABS: Bacteria 0 SEEN /hpf (None Seen); Mucous, Urine 0 SEEN /hpf (<or=2+); Red Blood Cells-Urine 0 SEEN /hpf (0-5); Squamous Epithelial Cells - UA 0 SEEN /hpf (5-10); White Blood Cells 0 SEEN /hpf (0-5)
[2022-01-08 00:56] LABS: Color, Urine Yellow (Yellow); Glucose, Dipstick Normal (Normal); Ketone-Dipstick Negative (Negative); Leukocyte Esterase-Dipstick Negative /ul (Negative); Nitrite-Dipstick Negative (Negative); Occult Blood-Urine Negative /ul (Negative); Protein-Dipstick Negative (Negative); Urine Bilirubin Dipstick Negative (Negative); Urine Clarity Clear (Clear); Urine Urobilinogen Normal (Normal)
[2022-01-08] MEDS: HYDROmorphone 0.5 MG/0.5 ML SYRINGE IV (02:17)
[2022-01-08] MEDS: Mag Hydrox/Al Hydrox/Simeth 30 ML UDC PO (02:17)
[2022-01-08 02:23] VITALS: BP 178/98; PULSE 77; RESP 18; O2SAT 97
[2022-01-08 02:40] LABS: Troponin-I HS 16 pg/mL (3.0-54.0)
--- NOTE | 2022-01-08 03:06 | EDS_ITS ---
HPI History of Present Illness Chief Complaint: Flank Pain Narrative Narrative: Patient is an 86-year-old female with history of of iron deficiency anemia and chronic back pain. She states she has had pain across the entire low back for the last few days with no known injury. She states that she feels like the pain is making it difficult to breathe. She denies any chest pain associated with this and she denies any loss of bowel or bladder control or IV drug use. Patient does states she has been urinating often but denies any dysuria. She states because of the pain and shortness of breath sensation she called EMS to bring her in for evaluation [id number] Medical History Anemia Anxiety Anxiety and depression Arthritis Bladder disease Bronchiectasis Chronic anemia Chronic renal failure, stage 3 (moderate) CKD (chronic kidney disease), stage III Contusion of left foot, initial encounter COPD (chronic obstructive pulmonary disease) CVA (cerebral vascular accident) Dementia Disorder of bone and cartilage Diverticula of colon Duodenal ulcer Dysmetabolic syndrome Early onset Alzheimer's dementia Fatigue Former smoker GERD (gastroesophageal reflux disease) History of echocardiogram History of edema HLD (hyperlipidemia) HTN (hypertension) Hypercholesteremia Hypertrophy of nasal turbinates Irritant dermatitis Lichen sclerosus Lower extremity edema Multiple pulmonary nodules Obesity Osteopenia Pneumonia Pneumonia due to COVID-19 virus Seborrheic keratoses Severe anemia Shortness of breath on exertion TIA (transient ischemic attack) Tobacco abuse Urinary, incontinence, stress female Vitamin B12 deficiency Vitamin D deficiency Wears dentures Wears glasses Yeast dermatitis Home Medications albuterol sulfate 2.5 mg INHALATION Q4H PRN PRN 03/12/20 [History Last Taken Unknown] Breo Ellipta 1 - 2 inh INHALATION DAILY 09/14/21 [History Last Taken Unknown] amlodipine 5 mg PO DAILY 09/14/21 [History Last Taken Unknown] albuterol sulfate 90 mcg/actuation aerosol inhaler 2 puff INHALATION Q6H PRN 10/19/21 [History Last Taken Unknown] citalopram 10 mg tablet 10 mg PO DAILY 10/19/21 [History Last Taken Unknown] hydrocodone-acetaminophen 1 tab PO Q6H PRN PRN 3 Days #10 tablet 10/26/21 [Rx Last Taken Unknown] furosemide 40 mg tablet 40 mg PO DAILY 12/12/21 [History Last Taken Unknown] gabapentin 100 mg capsule 100 mg PO DAILY 12/12/21 [History Last Taken Unknown] hydroxyzine HCl 10 mg tablet 50 mg PO QHS tab 12/12/21 [History Last Taken Unknown] memantine 10 mg tablet 10 mg PO QPM 12/12/21 [History Last Taken Unknown] nystatin 1 applic TOPICAL BID 01/03/22 [History Last Taken Unknown] polysaccharide iron complex [Ferrex 150] 150 mg PO DAILY 01/03/22 [History Last Taken Unknown] potassium chloride 20 meq PO DAILY 01/03/22 [History Last Taken Unknown] methocarbamol 500 mg PO 4X/DAY PRN PRN #40 tab 01/04/22 [Rx Last Taken Unknown] Allergy/AdvReac Type Severity Reaction Status Date / Time lisinopril AdvReac Swelling Verified 01/07/22 23:01 Family History (Updated 01/03/22 @ 23:[address] Krystal Boucher MD) Father Cancer Father with hx prostate CA. Diabetes Mother Breast cancer Surgical History History of bladder suspension procedure History of esophagogastroduodenoscopy (EGD) History of surgery Hx of tonsillectomy Social History household members: none Smoking Status: Former smoker how long ago did patient quit smoking: Patient quit smoking approximately 5 years ago. alcohol intake: never substance use type: does not use ROS ROS ED Constitutional Constitutional ED: Denies chills or fever(s) ENT ENT ED: Denies sore throat Cardiovascular Cardiovascular: Denies chest pain Respiratory/Chest Respiratory/Chest: Reports dyspnea; Denies cough Gastrointestinal Gastrointestinal: Denies abdominal pain, diarrhea, nausea or vomiting Genitourinary Genitourinary ED: Reports urinary frequency; Denies dysuria or hematuria Musculoskeletal Musculoskeletal: Reports back pain; Denies myalgias Integumentary Denies rash Neurologic Neurologic: Denies headache(s) Hematologic/Lymphatic Hematologic/Lymphatic: Denies easy bleeding or easy bruising EXAM Physical Exam Const Vital Signs: 01/07/22 22:57 01/08/22 00:27 01/08/22 02:23 Temperature 98.1 F Temperature Source Oral Pulse Rate 66 77 Respiratory Rate 24 H 18 Blood Pressure 172/85 H 178/98 H Blood Pressure Mean 114 124 Pulse Ox 98 84 97 Oxygen Delivery Method Nasal Cannula Room Air Room Air Oxygen Flow Rate (L/min) 2 01/08/22 03:12 Temperature Temperature Source Pulse Rate 74 Respiratory Rate 15 Blood Pressure 145/85 H Blood Pressure Mean Pulse Ox 93 Oxygen Delivery Method Oxygen Flow Rate (L/min) Positive well nourished and well developed General Appearance ED: well developed HEENT Reports moist mucous membranes Eyes PERRL and EOMs intact bilaterally Neck supple and no JVD Chest Wall palpation of chest normal Resp Resp Narrative: Breath sounds are diminished throughout with faint rhonchi in the bilateral bases but no nasal flaring retractions tachypnea or accessory muscle use Cardio regular rate and regular rhythm Rate: other Other Details: Radial pulses are +2-4 bilaterally are equal and symmetric GI non-tender, non-distended and no masses GI Narrative: No voluntary guarding or rigidity. No pulsatile mass or fluid wave. Bowel sounds are hypoactive Palpation: soft Back/Spine Back/Spine Narrative: No bony deformity or step-off of the thoracic or lumbar spine. There is mild midline lumbar pain with palpation. There is also pain on palpation to the bilateral paralumbar muscle belly region and slight tension at these sites. No saddle anesthesia. Negative straight leg. No clonus or Babinski. Patellar reflexes are plus 1 out of 4 bilaterally Extremity Extremity Narrative: There is trace pitting edema to the bilateral lower extremities that is equal and symmetric with negative Homans' sign bilaterally Neuro oriented x3 and CN's II-XII intact bilaterally Sensorium / Orientation: alert Psych mental status grossly normal Skin no rashes or lesions noted MDM MDM MDM Narrative Medical decision making narrative: Patient presented to the ER slightly hypertensive but otherwise in no acute distress. She has multiple complaints and secondary to this I did elect to perform a basic work-up. Patient's H&H is slightly low with a hemoglobin of 10 but this is chronic per nature after chart review. She has no signs of acute kidney injury or severe electrolyte derangement. She does have a history of CHF but on exam she did only had trace edema to the lower extremities and there is no JVD noted. Moreover did not hear crackles and her pulse ox was in the mid 90s. Imaging studies show chronic changes without acute infiltrate pneumothorax pleural effusion or acute fracture to the lumbar spine. Patient was medicated and did report improvement of symptoms. Therefore at this time as patient's had 2 normal troponins that are not elevating no obvious infiltrate or pneumothorax or pleural effusion on x-ray and no severe electrolyte derangements or changes to suggest acute kidney injury or urosepsis I do not feel she needs to be kept in the hospital and is otherwise safe for discharge Lab Data Attestation: I reviewed the patient's lab results. Labs: Laboratory Results - last 24 hr 01/07/22 01/07/22 01/07/22 23:52 23:52 23:52 WBC 5.9 RBC 3.59 L Hgb 10.3 L Hct 32.0 L MCV 89.1 MCH 28.7 MCHC 32.2 RDW Std Deviation 72.7 H RDW Coeff of Jung 22.4 H Plt Count 271 MPV 9.2 Immature Gran % (Auto) 0.500 Neut % (Auto) 85.2 H Lymph % (Auto) 4.4 L [place] % (Auto) 8.5 Eos % (Auto) 0.9 Baso % (Auto) 0.5 Absolute Neuts (auto) 5.0 Absolute Lymphs (auto) 0.26 L Nucleated RBC % 0 Differential Comment SCANNED Polychromasia RARE Anisocytosis 2+ Microcytosis 1+ Macrocytosis 1+ Sodium 127 L Potassium 3.7 Chloride 94 L Carbon Dioxide 25.0 Anion Gap 8 BUN 11 Creatinine 0.88 Estim Creat Clear Calc 44.63 Est GFR (MDRD) Af Amer 78 Est GFR (MDRD) Non-Af 64 BUN/Creatinine Ratio 12.5 Glucose 123 H Calcium 9.1 Magnesium 1.8 Troponin I High Sens 17 B-Natriuretic Peptide 184.2 H Urine Color Urine Clarity Urine pH Ur Specific Jackson Urine Protein Urine Glucose (UA) Urine Ketones Urine Occult Blood Urine Nitrite Urine Bilirubin Urine Urobilinogen Ur Leukocyte Esterase Urine RBC Urine WBC Ur Squamous Epith Cells Urine Bacteria Urine Mucus 01/08/22 01/08/22 00:50 02:15 WBC RBC Hgb Hct MCV MCH MCHC RDW Std Deviation RDW Coeff of Jung Plt Count MPV Immature Gran % (Auto) Neut % (Auto) Lymph % (Auto) [place] % (Auto) Eos % (Auto) Baso % (Auto) Absolute Neuts (auto) Absolute Lymphs (auto) Nucleated RBC % Differential Comment Polychromasia Anisocytosis Microcytosis Macrocytosis Sodium Potassium Chloride Carbon Dioxide Anion Gap BUN Creatinine Estim Creat Clear Calc Est GFR (MDRD) Af Amer Est GFR (MDRD) Non-Af BUN/Creatinine Ratio Glucose Calcium Magnesium Troponin I High Sens 16 B-Natriuretic Peptide Urine Color Yellow Urine Clarity Clear Urine pH 7.0 Ur Specific Jackson 1.010 Urine Protein Negative Urine Glucose (UA) Normal Urine Ketones Negative Urine Occult Blood Negative Urine Nitrite Negative Urine Bilirubin Negative Urine Urobilinogen Normal Ur Leukocyte Esterase Negative Urine RBC 0 SEEN Urine WBC 0 SEEN Ur Squamous Epith Cells 0 SEEN Urine Bacteria 0 SEEN Urine Mucus 0 SEEN Radiography Diagnostic Testing: Clinical Impression(s) from Imaging Studies Chest X-Ray 01/07/22 00:00 IMPRESSION: 1. Mild cardiomegaly without heart failure. 2. Mild emphysema. 3. Presence of a 4 mm calcified granuloma in the mid left lung. 4. Mild atelectatic change in the right lower lobe. 5. No other evidence of active cardiopulmonary disease. 6. Moderate size 11.6 cm in diameter hiatal hernia. Electronically Signed: Sergei Lisa MD at 0:29 EDT , Lumbar Spine X-Ray 01/07/22 23:39 IMPRESSION: 1. Mild to moderate demineralization. 2. Mild lumbar levoscoliosis. 3. Marked T12 and mild L2 and L3 vertebral body compression fractures. 4. Presence of 5 mm forward subluxation of L4 with respect to L5. 5. Moderate narrowing of the L4-5 and L5-S1 intervertebral disc spaces. 6. Heavily calcified abdominal aorta without aneurysmal dilatation. Electronically Signed: Sergei Lisa MD at 0:34 EDT , Chest x-ray as interpreted by the emergency medicine physician reveals mild cardiomegaly without pleural effusion there is no acute infiltrate or pneumothorax noted X-ray of the lumbar spine as interpreted by the emergency medicine physician reveals chronic degeneration changes with chronic compression deformities of L2- L3 and L4. However no acute fracture is noted. There is chronic subluxation of L4-L5 Discharge Plan Triage Chief Complaint: Flank Pain ED Provider: Charles Woodard Dx/Rx/DC Orders Clinical Impression: Acute exacerbation of chronic low back pain, Hyponatremia, Hypertension Instructions: ED Back Pain (Acute or Chronic), ED Hyponatremia Prescriptions: No Action citalopram 10 mg tablet 10 mg PO DAILY RF: 0 albuterol sulfate 90 mcg/actuation HFA aerosol inhaler 2 puff inhalation Q6H PRN (Reason: SOB) RF: 0 gabapentin 100 mg capsule 100 mg PO DAILY RF: 0 hydroxyzine HCl 10 mg tablet 50 mg PO QHS RF: 0 furosemide [Lasix] 40 mg tablet 40 mg PO DAILY RF: 0 memantine 10 mg tablet 10 mg PO QPM RF: 0 albuterol sulfate 2.5 MG/3 ML solution for nebulization 2.5 mg inhalation Q4H PRN PRN (Reason: Sob &/Or Wheezing) RF: 0 amlodipine 5 mg tablet 5 mg PO DAILY RF: 0 Breo Ellipta 100-25 mcg/dose blister with device 1 - 2 inh INHALATION DAILY RF: 0 hydrocodone-acetaminophen [hydrocodone-acetaminophen] 1 TABLET tablet 1 tab PO Q6H PRN PRN (Reason: Pain) 3 Days Qty: 10 RF: 0 polysaccharide iron complex [Ferrex 150] 150 mg iron Capsule 150 mg PO DAILY RF: 0 nystatin 100,000 unit/gram Powder 1 applic TOPICAL BID RF: 0 potassium chloride 20 mEq Tablet Extended Release 20 meq PO DAILY RF: 0 methocarbamol 500 mg tablet 500 mg PO 4X/DAY PRN PRN (Reason: Muscle pain/spasm) Qty: 40 RF: 0 Primary Care Provider: Arnulfo Lynn Chi Referrals: Arnulfo Lynn Chi, MD [Primary Care Provider] - Disposition Disposition: Home, Self Care
[2022-01-08 03:12] VITALS: BP 145/85; PULSE 74; RESP 15; O2SAT 93
--- NOTE | 2022-01-08 06:07 | NURSING ---
called and spoke with daughter, Zulema. Updated on patient status and that she is ready for DC. Zulema states that she is able to come and get the patient.
--- NOTE | 2022-01-08 06:39 | ED.RN ---
anupam neumann made aware patient being discharged and will be returning
== END 2022-01-08 06:43 | disposition home or self-care (01) ==
PROVIDERS: Emergency Provider Emergency Medicine; PCP Family Medicine Geriatric Medicine; Visit Provider Emergency Medicine
DX: M54.50 Low back pain, unspecified (principal); J44.9 Chronic obstructive pulmonary disease, unspecified; I13.0 Hypertensive heart and chronic kidney disease with heart failure and stage 1 through stage 4 chronic kidney disease, or unspecified chronic kidney disease; I50.9 Heart failure, unspecified; N18.30 Chronic kidney disease, stage 3 unspecified; G89.29 Other chronic pain; E87.1 Hypo-osmolality and hyponatremia; E78.00 Pure hypercholesterolemia, unspecified; F41.9 Anxiety disorder, unspecified; F32.A Depression, unspecified; Z87.891 Personal history of nicotine dependence; Z86.16 Personal history of COVID-19; Z86.73 Personal history of transient ischemic attack (TIA), and cerebral infarction without residual deficits
CPT/HCPCS: 71046; 72100; 80048; 81001; 83735; 83880; 84484; 85025; 96374; 96375; 99285; A4216; J2405

== ENCOUNTER 2022-01-12 22:18 | Emergency (ER) | payer MEDICARE, MEDICAID, SELFPAY ==
[2022-01-12 22:20] VITALS: BP 173/90; PULSE 70; RESP 18; TEMP 36.9; O2SAT 98; BMI 24.1
--- NOTE | 2022-01-12 22:58 | EDS_ITS ---
HPI History of Present Illness Chief Complaint: Back Informant: patient Narrative Narrative: History is somewhat limited. Patient is a very important informant for past history. I am not sure if this is due to distraction from pain, forgetfulness, or dementia or combination. She told me she is on medicines for blood pressure but she has no other medical problems. However she is on quite a few medicines. She also has had recorded early stages of dementia. She states she has been having pain in her back for at least 3 or 4 months. There was no injury or fall. She does recall having x-rays recently. She has been seeing those doctors [place]. This sounds like it is likely her family doctor. She states they have not written for any meds or anything. She then saw a foreign doctor about a week ago. He said something about doing something about this this coming Saturday but she is not sure what that is. Again she states nobody has given her any medicines for anything to help this. However, she just filled a prescription for hydrocodone yesterday. She is also on methocarbamol. She is also on gabapentin. I do not think the patient is seeking narcotics I think she is somewhat distracted or forgets getting these meds. This makes me question if she is actually taking them. Patient denies numbness tingling or weakness. She states her pain is generally low left-sided. She is not having any urinary problems or problems moving ivan wels. She has not been having fevers or chills. She denies any cancer or chemotherapy or immunosuppression and I see no sign of that on her chart. She has seen oncology but the best I can tell from the records is its for anemia evaluations. [facility] Medical History Anemia Anxiety Anxiety and depression Arthritis Bladder disease Bronchiectasis Chronic anemia Chronic renal failure, stage 3 (moderate) CKD (chronic kidney disease), stage III Contusion of left foot, initial encounter COPD (chronic obstructive pulmonary disease) CVA (cerebral vascular accident) Dementia Disorder of bone and cartilage Diverticula of colon Duodenal ulcer Dysmetabolic syndrome Early onset Alzheimer's dementia Fatigue Former smoker GERD (gastroesophageal reflux disease) History of echocardiogram History of edema HLD (hyperlipidemia) HTN (hypertension) Hypercholesteremia Hypertrophy of nasal turbinates Irritant dermatitis Lichen sclerosus Lower extremity edema Multiple pulmonary nodules Obesity Osteopenia Pneumonia Pneumonia due to COVID-19 virus Seborrheic keratoses Severe anemia Shortness of breath on exertion TIA (transient ischemic attack) Tobacco abuse Urinary, incontinence, stress female Vitamin B12 deficiency Vitamin D deficiency Wears dentures Wears glasses Yeast dermatitis Home Medications albuterol sulfate 2.5 mg INHALATION Q4H PRN PRN 03/12/20 [History Last Taken Unknown] Breo Ellipta 1 - 2 inh INHALATION DAILY 09/14/21 [History Last Taken Unknown] amlodipine 5 mg PO DAILY 09/14/21 [History Last Taken Unknown] albuterol sulfate 90 mcg/actuation aerosol inhaler 2 puff INHALATION Q6H PRN 10/19/21 [History Last Taken Unknown] citalopram 10 mg tablet 10 mg PO DAILY 10/19/21 [History Last Taken Unknown] hydrocodone-acetaminophen 1 tab PO Q6H PRN PRN 3 Days #10 tablet 10/26/21 [Rx Last Taken Unknown] furosemide 40 mg tablet 40 mg PO DAILY 12/12/21 [History Last Taken Unknown] gabapentin 100 mg capsule 100 mg PO DAILY 12/12/21 [History Last Taken Unknown] hydroxyzine HCl 10 mg tablet 50 mg PO QHS tab 12/12/21 [History Last Taken Unknown] memantine 10 mg tablet 10 mg PO QPM 12/12/21 [History Last Taken Unknown] nystatin 1 applic TOPICAL BID 01/03/22 [History Last Taken Unknown] polysaccharide iron complex [Ferrex 150] 150 mg PO DAILY 01/03/22 [History Last Taken Unknown] potassium chloride 20 meq PO DAILY 01/03/22 [History Last Taken Unknown] methocarbamol 500 mg PO 4X/DAY PRN PRN #40 tab 01/04/22 [Rx Last Taken Unknown] Allergy/AdvReac Type Severity Reaction Status Date / Time lisinopril AdvReac Swelling Verified 01/07/22 23:01 Family History Father Cancer Father with hx prostate CA. Diabetes Mother Breast cancer Surgical History History of bladder suspension procedure History of esophagogastroduodenoscopy (EGD) History of surgery Hx of tonsillectomy Social History household members: none Smoking Status: Former smoker how long ago did patient quit smoking: Patient quit smoking approximately 5 years ago. alcohol intake: never substance use type: does not use ROS ROS ED Constitutional Constitutional ED: Denies chills or fever(s) Eyes Eyes: Denies blurry vision ENT ENT ED: Denies rhinorrhea Cardiovascular Cardiovascular: Denies chest pain Respiratory/Chest Respiratory/Chest: Denies dyspnea or sputum Gastrointestinal Gastrointestinal: Denies abdominal pain, constipation, diarrhea, nausea or vomiting Genitourinary Genitourinary ED: Denies dysuria, hematuria or urinary frequency Musculoskeletal Musculoskeletal: Reports back pain Integumentary Denies rash Neurologic Neurologic: Denies paresthesias or weakness Endocrine Endocrinology: Denies polydipsia or polyuria Hematologic/Lymphatic Hematologic/Lymphatic: Denies easy bleeding or easy bruising Allergic/Immunologic Allergic/Immunologic ED: Denies urticaria EXAM Physical Exam Const Vital Signs: 01/12/22 22:20 01/12/22 23:35 Temperature 98.4 F Temperature Source Oral Pulse Rate 70 81 Respiratory Rate 18 18 Blood Pressure 173/90 H Blood Pressure Mean 117 Pulse Ox 98 97 Oxygen Delivery Method Room Air Positive well nourished and well developed General Appearance ED: well developed and NAD HEENT Reports moist mucous membranes Eyes General Eye ED: Negative for pale conjunctiva or scleral icterus Neck no JVD Resp normal respiratory effort Cardio regular rate and regular rhythm GI normal to inspection, nondistended, normoactive bowel sounds, soft to palpation, non-tender, non-distended and no masses Back/Spine normal to inspection Back/Spine Narrative: She does have some low left paraspinal tenderness. No buttock tenderness. Extremity normal to inspection General Extremety ED: Negative for edema or tenderness General Extremity: Negative for edema Neuro oriented x3 Neuro Narrative: Sensation and reflexes are normal. Sensorium / Orientation: alert Deep Tendon Reflexes: Rt Patellar (L4): 2+, Lt Patellar (L4): 2+, Rt Ankle (S1): 2+ and Lt Ankle (S1): 2+ Deep Tendon Reflexes Back: Rt Patellar (L4): 2+, Lt Patellar (L4): 2+, Rt Ankle (S1): 2+ and Lt Ankle (S1): 2+ Psych Psych Narrative: Patient is mildly frustrated and agitated. She is having some discomfort. Skin no rashes or lesions noted MDM MDM MDM Narrative Medical decision making narrative: I looked on online prescribing and find the patient was just prescribed hydrocodone. I talked to the patient about this. She states she does not know what medicine she takes because they give them to her at the assisted. This is the first I have been notified that she came from a assisted. She had first said that she had was at home. But she meant the assisted. I looked at her assisted papers that were than available. 2 days ago they stopped her Percocet and started giving her half tablets of hydrocodone rather than what appears to be full tablets of Percocet. I think this is likely contributed to an exacerbation of her chronic back pain. I did find recent x-rays from earlier this month. I do not think these need to be repeated as she has no neurologic symptoms. We will try to get her pain meds here and get her back to the nursing facility. I think this appears to need chronic management. I think the reduction and change in her pain meds have probably caused recent problems and exacerbation. I also find that when they stopped her Percocet they also stopped tramadol that she was getting. So she is gone from what appears to be 4 tablets of Percocet and tramadol to half tablet of hydrocodone. Patient also states that they are supposed to do a procedure on Saturday to fix these. My suspicion is that this is kyphoplasty. She does have compression fractures that look like they worsened. But there is no neurologic decompensation. There is no nausea vomiting or abdominal distention. I think we need to manage her pain until this procedure can be done. I think it is appropriate for the nursing facility to increase her pain meds back. I will try to get her pain better here. Discharge Plan Triage Chief Complaint: Back ED Provider: Mike López Dx/Rx/DC Orders Clinical Impression: Acute exacerbation of chronic low back pain, Compression fracture Instructions: ED Back Pain (Acute or Chronic) Prescriptions: No Action citalopram 10 mg tablet 10 mg PO DAILY RF: 0 albuterol sulfate 90 mcg/actuation HFA aerosol inhaler 2 puff inhalation Q6H PRN (Reason: SOB) RF: 0 gabapentin 100 mg capsule 100 mg PO DAILY RF: 0 hydroxyzine HCl 10 mg tablet 50 mg PO QHS RF: 0 furosemide [Lasix] 40 mg tablet 40 mg PO DAILY RF: 0 memantine 10 mg tablet 10 mg PO QPM RF: 0 albuterol sulfate 2.5 MG/3 ML solution for nebulization 2.5 mg inhalation Q4H PRN PRN (Reason: Sob &/Or Wheezing) RF: 0 amlodipine 5 mg tablet 5 mg PO DAILY RF: 0 Breo Ellipta 100-25 mcg/dose blister with device 1 - 2 inh INHALATION DAILY RF: 0 hydrocodone-acetaminophen [hydrocodone-acetaminophen] 1 TABLET tablet 1 tab PO Q6H PRN PRN (Reason: Pain) 3 Days Qty: 10 RF: 0 polysaccharide iron complex [Ferrex 150] 150 mg iron Capsule 150 mg PO DAILY RF: 0 nystatin 100,000 unit/gram Powder 1 applic TOPICAL BID RF: 0 potassium chloride 20 mEq Tablet Extended Release 20 meq PO DAILY RF: 0 methocarbamol 500 mg tablet 500 mg PO 4X/DAY PRN PRN (Reason: Muscle pain/spasm) Qty: 40 RF: 0 Primary Care Provider: Arnulfo Lynn Chi Referrals: Arnulfo Lynn Chi, MD [Primary Care Provider] - Disposition Disposition: NonSkilled [place]
[2022-01-12] MEDS: Ondansetron 4 MG/2 ML Vial IV (23:32)
[2022-01-12] MEDS: Morphine 4 MG/ML Syringe IV (23:32)
[2022-01-12 23:35] VITALS: PULSE 81; RESP 18; O2SAT 97
[2022-01-13] MEDS: Morphine 4 MG/ML Syringe IV (00:38)
--- NOTE | 2022-01-13 01:30 | NURSING ---
called both daughters and left voicemail to let notifiy pt was discharged from hospital and needing a ride home.
[2022-01-13 05:17] VITALS: BP 150/76; PULSE 73; RESP 18; O2SAT 95
== END 2022-01-13 05:20 ==
PROVIDERS: Emergency Provider Emergency Medicine; PCP Family Medicine Geriatric Medicine; Visit Provider Emergency Medicine
DX: M54.50 Low back pain, unspecified (principal); M48.50XA Collapsed vertebra, not elsewhere classified, site unspecified, initial encounter for fracture; F02.80 Dementia in other diseases classified elsewhere, unspecified severity, without behavioral disturbance, psychotic disturbance, mood disturbance, and anxiety; J44.9 Chronic obstructive pulmonary disease, unspecified; N18.30 Chronic kidney disease, stage 3 unspecified; G89.29 Other chronic pain; I12.9 Hypertensive chronic kidney disease with stage 1 through stage 4 chronic kidney disease, or unspecified chronic kidney disease; E78.00 Pure hypercholesterolemia, unspecified; F41.9 Anxiety disorder, unspecified; F32.A Depression, unspecified; Z87.891 Personal history of nicotine dependence; Z86.16 Personal history of COVID-19; Z86.73 Personal history of transient ischemic attack (TIA), and cerebral infarction without residual deficits
CPT/HCPCS: 96374; 96375; 96376; 99284; A4216; J2405

== ENCOUNTER 2022-01-19 08:34 | Day surgery (SDC) | payer MEDICARE, MEDICAID, SELFPAY ==
[2022-01-19] VITALS (24 sets, daily range): BP systolic 102–173; BP diastolic 59–93; PULSE 78–115; RESP 12–91; TEMP 36.4–37.4; O2SAT 80–100; BMI 23.1
[2022-01-19] MEDS: Lactated Ringers 1,000 ML 30 ML IV (09:37)
--- NOTE | 2022-01-19 10:10 | BON_PTH ---
PATIENT: JAZMINE GONZALEZ [place] [facility] [id number] AGE/SX: 86/F ROOM: RE01/19/[address]: Dr. Mauro Cagle MD : [id number] BED: DIS: 01/20/2022 SPEC #: [id number] RECD: 01/19/22 14:48 STATUS: ROMEL REZaki #: [id number] XIOMARA: 01/19/22 10:[address]: Mauro Cagle DEPT: SURGICAL PATHOLOGY RECD BY: Matt Pelletier ENTERED: 01/22/22 08:25 SP TYPE: Bone OTHR DR: Arnulfo Lynn MD Tissues: Vertebra, NOS Procedures: Decalcification bone/plaque Surgery Specimen Level V HEADER OPERATION: Kyphoplasty L2-L3 PRE-OP DIAGNOSIS: Compression fracture L2-L3 TISSUE SUBMITTED: Biopsy L2 body MICROSCOPIC DIAGNOSIS L2 vertebral body, bone biopsy: Trilineage hematopoiesis. No evidence of malignancy. AM:jose f 01/24/2022 MICROSCOPIC DESCRIPTION Slides are reviewed. GROSS DESCRIPTION Received in fixative is one container labeled with the patient's name and designated biopsy of L2 body. The specimen consists of multiple irregular fragments of blood clot mixed with minute fragments of bone that in aggregate measure 1.5 x 0.5 x 0.1 cm. The specimen is totally submitted in one cassette after decalcification. / SJ:jose f 01/22/2022 TC:5 CPT: 86578, 30756
--- NOTE | 2022-01-19 10:15 | RAD_ITS ---
STUDY: X-RAY - LUMBAR SPINE REASON FOR EXAM: Female, 86 years old. Kyphoplasty at L2-3 TECHNIQUE: 12 Limited intraoperative view(s) of the lumbar spine were obtained. COMPARISON: None FINDINGS: 12 Limited intraoperative C-arm films were obtained as the patient has undergone kyphoplasty at L2 and L3. Methacrylate cement noted in the anterior two thirds of both L2 and L3 with no extravasation of cement noted outside the vertebral bodies. RAD/Lumbar Spine 2 or 3 Views IMPRESSION: No intraoperative complications during kyphoplasty at L2 and L3 Electronically Signed: Dileep Arriaza MD at 13:05 EDT ,
[2022-01-19] MEDS: Cefazolin 2 GM in 0.9% Normal Saline 100 ML IV (10:21)
[2022-01-19] MEDS: Bupivacaine Mpf 0.5% 30 ML VIAL (11:19)
[2022-01-19] MEDS: Ipratropium/Albuterol Sulfate 3 ML AMPUL.NEB INHALATION (11:57)
--- NOTE | 2022-01-19 15:17 | SUR.PHASEI ---
had patient march in place at bedside. oxygen came unhooked from wall. pulse ox stayed at 92% but heart rate increased to 115. after getting pateint back to bed, pulse ox dropped to 75%. waited two minutes, pulse ox remained at 75%, heart rate 85 reapplied 02 at 1L, had pt take some deep breaths. pulse ox went up to 99% after about a minute, pulse ox on 1 liter is now running between 87 to 94%
[2022-01-19] MEDS: Mag Hydrox/Al Hydrox/Simeth 30 ML UDC PO ×2 (15:44→20:56)
--- NOTE | 2022-01-19 17:00 | SUR.PREOP ---
Pt walked in hallway 20ft, pt spo2 dropped to 80% while walking, Dr. Cagle contacted and order given to admit pt. Hospitalist to come see pt in AC for admission
--- NOTE | 2022-01-19 17:24 | HP.PCM_ITS ---
Documented by User: Renee Harding NP-C 01/19/22 17:39 HPI - General General Date of Admission: 01/19/22 Date of Service: 01/19/22 Chief Complaint: Hypoxia following a surgical procedure HPI Narrative JAZMINE GONZALEZ, is a 86 F who presents with hypoxia following a kyphoplasty with Dr. Cagle. Patient states that she feels short of breath and gets easily winded when walking. Patient denies feeling ill prior to procedure and states that she was not short of breath prior to procedure. Patient reports a history of COPD but says this is more severe than her normal COPD symptoms. Patient also reports a medical history of hypertension, anxiety and depression, CKD stage III, CVA. [facility] Medical History (Updated 01/19/22 @ 17:33 by Renee Harding NP-C) Anemia Anxiety Anxiety and depression Arthritis Bladder disease Bronchiectasis Chronic anemia Chronic renal failure, stage 3 (moderate) CKD (chronic kidney disease), stage III Contusion of left foot, initial encounter COPD (chronic obstructive pulmonary disease) CVA (cerebral vascular accident) Dementia Disorder of bone and cartilage Diverticula of colon Duodenal ulcer Dysmetabolic syndrome Early onset Alzheimer's dementia Fatigue Former smoker GERD (gastroesophageal reflux disease) History of echocardiogram History of edema HLD (hyperlipidemia) HTN (hypertension) Hypercholesteremia Hypertrophy of nasal turbinates Irritant dermatitis Lichen sclerosus Lower extremity edema Multiple pulmonary nodules [facility] resident Obesity Osteopenia Pneumonia Pneumonia due to COVID-19 virus Seborrheic keratoses Severe anemia Shortness of breath on exertion TIA (transient ischemic attack) Tobacco abuse Urinary, incontinence, stress female Vitamin B12 deficiency Vitamin D deficiency Wears dentures Wears glasses Yeast dermatitis Home Medications albuterol sulfate 2.5 mg INHALATION Q4H PRN PRN 03/12/20 [History Last Taken Unknown] Breo Ellipta 1 - 2 inh INHALATION DAILY 09/14/21 [History Last Taken Unknown] amlodipine 5 mg PO DAILY 09/14/21 [History Last Taken 01/19/22] albuterol sulfate 90 mcg/actuation aerosol inhaler 2 puff INHALATION Q6H PRN 10/19/21 [History Last Taken Unknown] citalopram 10 mg tablet 10 mg PO DAILY 10/19/21 [History Last Taken Unknown] hydrocodone-acetaminophen 1 tab PO Q6H PRN PRN 3 Days #10 tablet 10/26/21 [Rx L ast Taken Unknown] furosemide 40 mg tablet 40 mg PO DAILY 12/12/21 [History Last Taken Unknown] gabapentin 100 mg capsule 100 mg PO DAILY 12/12/21 [History Last Taken Unknown] hydroxyzine HCl 10 mg tablet 50 mg PO Q8H PRN tab 12/12/21 [History Last Taken 01/19/22] memantine 10 mg tablet 10 mg PO BID 12/12/21 [History Last Taken 01/19/22] nystatin 1 applic TOPICAL BID 01/03/22 [History Last Taken Unknown] polysaccharide iron complex [Ferrex 150] 150 mg PO DAILY 01/03/22 [History Last Taken Unknown] potassium chloride 20 meq PO DAILY 01/03/22 [History Last Taken Unknown] linaclotide [Linzess] 72 mcg PO PRN PRN 01/18/22 [History Last Taken Unknown] methocarbamol 500 mg PO Q6H PRN 01/18/22 [History Last Taken Unknown] Allergy/AdvReac Type Severity Reaction Status Date / Time lisinopril AdvReac Swelling Verified 01/19/22 09:17 morphine AdvReac Itching Verified 01/19/22 12:05 Family History Father Cancer Father with hx prostate CA. Diabetes Mother Breast cancer Surgical History (Updated 01/19/22 @ 17:33 by Renee Harding NP-C) History of bladder suspension procedure History of esophagogastroduodenoscopy (EGD) History of surgery Hx of tonsillectomy Social History household members: none Smoking Status: Former smoker how long ago did patient quit smoking: Patient quit smoking approximately 7 years ago. alcohol intake: never substance use type: does not use ROS Constitutional Constitutional: Denies anorexia, chills, fatigue, fever(s), malaise or weakness Cardiovascular Cardiovascular: Denies chest pain, edema or palpitations Respiratory/Chest Respiratory/Chest: Reports dyspnea on exertion, shortness of breath at rest and shortness of breath with exertion Gastrointestinal Gastrointestinal: Denies abdominal pain, constipation, diarrhea, nausea or vomiting Genitourinary Genitourinary: Denies dysuria Musculoskeletal Musculoskeletal: Reports back pain; Denies extremity pain, joint pain or joint stiffness Integumentary Integumentary: Denies dry skin Neurologic Neurologic: Denies abnormal gait, abnormal speech, confusion or dizziness Psychiatric Psychiatric: Denies anxiety or depression Endocrine Endocrinology: Denies change in body appearance Hematologic/Lymphatic Hematologic/Lymphatic: Denies anemia Vital Signs Vital Signs Vital Signs: 01/19/22 09:21 01/19/22 11:34 01/19/22 12:00 Temperature 99.3 F H 99.4 F H Temperature Source Temporal Temporal Pulse Rate 79 87 78 Respiratory Rate 16 12 16 Respiratory Pattern Normal Normal Blood Pressure 128/62 H 173/85 H 153/83 H Blood Pressure Mean 84 114 106 Blood Pressure Source Monitor Monitor Monitor Blood Pressure Position Semi-Fowlers Semi-Fowlers Semi-Fowlers Blood Pressure Location Right Arm Left Arm Right Arm Baseline BP 128/62 128/62 Pulse Ox 94 95 100 Oxygen Delivery Method Room Air Room Air Nasal Cannula Oxygen Flow Rate (L/min) 2 01/19/22 12:15 01/19/22 12:30 01/19/22 12:45 Temperature Temperature Source Pulse Rate 86 82 85 Respiratory Rate 16 91 H Respiratory Pattern Blood Pressure 153/86 H 147/74 H 151/74 H Blood Pressure Mean 108 98 99 Blood Pressure Source Monitor Monitor Monitor Blood Pressure Position Semi-Fowlers Semi-Fowlers Semi-Fowlers Blood Pressure Location Right Arm Left Arm Left Arm Baseline BP 128/62 128/62 128/62 Pulse Ox 98 87 Oxygen Delivery Method Nasal Cannula Nasal Cannula Nasal Cannula Oxygen Flow Rate (L/min) 2 2 2 01/19/22 13:00 01/19/22 13:15 01/19/22 13:30 Temperature Temperature Source Pulse Rate 86 86 88 Respiratory Rate 16 16 Respiratory Pattern Blood Pressure 136/75 H 138/84 H 124/69 H Blood Pressure Mean 95 102 87 Blood Pressure Source Monitor Monitor Monitor Blood Pressure Position Semi-Fowlers Semi-Fowlers Semi-Fowlers Blood Pressure Location Left Arm Left Arm Left Arm Baseline BP 128/62 128/62 128/62 Pulse Ox 93 93 92 Oxygen Delivery Method Nasal Cannula Nasal Cannula Nasal Cannula Oxygen Flow Rate (L/min) 2 2 2 01/19/22 13:45 01/19/22 14:00 01/19/22 14:15 Temperature Temperature Source Pulse Rate 94 90 88 Respiratory Rate 18 16 18 Respiratory Pattern Blood Pressure 114/64 128/65 H 102/93 H Blood Pressure Mean 80 86 96 Blood Pressure Source Monitor Monitor Monitor Blood Pressure Position Semi-Fowlers Semi-Fowlers Semi-Fowlers Blood Pressure Location Left Arm Left Arm Left Arm Baseline BP 128/62 128/62 128/62 Pulse Ox 90 91 85 Oxygen Delivery Method Nasal Cannula Nasal Cannula Nasal Cannula Oxygen Flow Rate (L/min) 1.5 1 0.5 01/19/22 14:30 01/19/22 14:45 01/19/22 15:00 Temperature Temperature Source Pulse Rate 89 90 86 Respiratory Rate 18 18 18 Respiratory Pattern Blood Pressure 109/60 123/59 H 121/74 H Blood Pressure Mean 76 80 89 Blood Pressure Source Monitor Monitor Monitor Blood Pressure Position Semi-Fowlers Semi-Fowlers Semi-Fowlers Blood Pressure Location Left Arm Right Forearm Left Arm Baseline BP 128/62 128/62 128/62 Pulse Ox 91 91 92 Oxygen Delivery Method Nasal Cannula Nasal Cannula Room Air Oxygen Flow Rate (L/min) 1 1 01/19/22 15:15 01/19/22 15:30 01/19/22 15:45 Temperature Temperature Source Pulse Rate 99 82 78 Respiratory Rate 18 16 16 Respiratory Pattern Blood Pressure 154/76 H 137/69 H 122/71 H Blood Pressure Mean 102 91 88 Blood Pressure Source Monitor Monitor Monitor Blood Pressure Position Semi-Fowlers Semi-Fowlers Semi-Fowlers Blood Pressure Location Left Arm Left Arm Left Arm Baseline BP 128/62 128/62 128/62 Pulse Ox 80 94 94 Oxygen Delivery Method Room Air Room Air Nasal Cannula Oxygen Flow Rate (L/min) 1 0.5 01/19/22 16:00 01/19/22 16:30 01/19/22 17:06 Temperature 99.0 F Temperature Source Temporal Pulse Rate 86 115 H Respiratory Rate 18 16 Respiratory Pattern Normal Blood Pressure 135/72 H Blood Pressure Mean 93 Blood Pressure Source Monitor Blood Pressure Position Semi-Fowlers Blood Pressure Location Left Arm Baseline BP 128/62 128/62 Pulse Ox 93 80 Oxygen Delivery Method Nasal Cannula Nasal Cannula Oxygen Flow Rate (L/min) 0.5 2 01/19/22 17:20 Temperature Temperature Source Pulse Rate Respiratory Rate Respiratory Pattern Blood Pressure Blood Pressure Mean Blood Pressure Source Blood Pressure Position Blood Pressure Location Baseline BP 128/62 Pulse Ox Oxygen Delivery Method Oxygen Flow Rate (L/min) Weight Weight: 143 lb 4.807 oz Body Mass Index (BMI) 23.1 Physical Exam Const alert, oriented x3 and no apparent distress General Appearance: cooperative HEENT normocephalic and head/scalp atraumatic Eyes conjunctivae normal and no scleral icterus Neck supple General: trachea midline Resp normal respiratory effort and normal air movement Effort and Inspection: able to speak in complete sentences and symmetric chest movement Auscultation: wheezes expiratory wheezes, right lower and anterior Cardio regular rate, regular rhythm, S1 normal heart sound, S2 normal heart sound and peripheral pulses 2+ throughout GI normal to inspection, nondistended, normoactive bowel sounds, soft to palpation and non-tender Extremity normal capillary refill and no clubbing, cyanosis or edema General Extremity: no tenderness to palpation of joints or extremities Skin General Skin Exam: no breakdown and turgor normal Lesions: no lesions Rashes: no rashes Neuro no focal motor deficits and no sensory deficits noted Motor Exam: Negative for general weakness Psych thought process normal, cooperative and affect normal Appearance: appropriate Results Radiology Impression Lumbar Spine X-Ray 01/19/22 10:15 IMPRESSION: No intraoperative complications during kyphoplasty at L2 and L3 Electronically Signed: Dileep Arriaza MD at 13:05 EDT Reading Location ID and State: [address] [place] [address] , Service support , Assessment & Plan Assessment/Plan (1) S/P kyphoplasty: PLAN: 1. Acute hypoxia status post kyphoplasty -Contacted by healthcare applications analyst regarding patient's continued hypoxia following procedure. Patient has a history of COPD but does not wear oxygen at home and was not hypoxic prior to procedure. Patient currently wearing 1 L at rest but has significant hypoxia and pulse ox dropped to 80% when ambulatory. -Admit to [facility] [place] for observation overnight -As needed albuterol treatments ordered as well as scheduled DuoNeb nebulizer treatments -Oxygen therapy per protocol, titrate as needed -Continue Keflex 500 mg p.o. every 6 hours as prescribed by Dr. Cagle for postprocedural prevention of infection 2. Hypertension -Continue patient's home medications including amlodipine, furosemide -Vital signs per protocol, pressure currently stable 3. COPD -Patient not currently in exacerbation however may be contributing to her hypoxia following procedure -As needed albuterol as well scheduled DuoNeb ordered -Oxygen therapy per protocol, titrate as needed 4. Anxiety -Continue citalopram and as needed hydroxyzine 5. Dementia -Continue memantine DVT prophylaxis-not indicated This patient was seen by SEAN Bhakta under the supervision of Dr. Boucher. 29 minutes spent in clinical coordination of patient's plan of care. Documented by User: Dr. Krystal Boucher MD 01/19/22 17:48 [facility] Medical History (Updated 01/19/22 @ 17:33 by Renee Harding NP-C) Anemia Anxiety Anxiety and depression Arthritis Bladder disease Bronchiectasis Chronic anemia Chronic renal failure, stage 3 (moderate) CKD (chronic kidney disease), stage III Contusion of left foot, initial encounter COPD (chronic obstructive pulmonary disease) CVA (cerebral vascular accident) Dementia Disorder of bone and cartilage Diverticula of colon Duodenal ulcer Dysmetabolic syndrome Early onset Alzheimer's dementia Fatigue Former smoker GERD (gastroesophageal reflux disease) History of echocardiogram History of edema HLD (hyperlipidemia) HTN (hypertension) Hypercholesteremia Hypertrophy of nasal turbinates Irritant dermatitis Lichen sclerosus Lower extremity edema Multiple pulmonary nodules [facility] resident Obesity Osteopenia Pneumonia Pneumonia due to COVID-19 virus Seborrheic keratoses Severe anemia Shortness of breath on exertion TIA (transient ischemic attack) Tobacco abuse Urinary, incontinence, stress female Vitamin B12 deficiency Vitamin D deficiency Wears dentures Wears glasses Yeast dermatitis Home Medications albuterol sulfate 2.5 mg INHALATION Q4H PRN PRN 03/12/20 [History Last Taken Unknown] Breo Ellipta 1 - 2 inh INHALATION DAILY 09/14/21 [History Last Taken Unknown] amlodipine 5 mg PO DAILY 09/14/21 [History Last Taken 01/19/22] albuterol sulfate 90 mcg/actuation aerosol inhaler 2 puff INHALATION Q6H PRN 10/19/21 [History Last Taken Unknown] citalopram 10 mg tablet 10 mg PO DAILY 10/19/21 [History Last Taken Unknown] hydrocodone-acetaminophen 1 tab PO Q6H PRN PRN 3 Days #10 tablet 10/26/21 [Rx Last Taken Unknown] furosemide 40 mg tablet 40 mg PO DAILY 12/12/21 [History Last Taken Unknown] gabapentin 100 mg capsule 100 mg PO DAILY 12/12/21 [History Last Taken Unknown] hydroxyzine HCl 10 mg tablet 50 mg PO Q8H PRN tab 12/12/21 [History Last Taken 01/19/22] memantine 10 mg tablet 10 mg PO BID 12/12/21 [History Last Taken 01/19/22] nystatin 1 applic TOPICAL BID 01/03/22 [History Last Taken Unknown] polysaccharide iron complex [Ferrex 150] 150 mg PO DAILY 01/03/22 [History Last Taken Unknown] potassium chloride 20 meq PO DAILY 01/03/22 [History Last Taken Unknown] linaclotide [Linzess] 72 mcg PO PRN PRN 01/18/22 [History Last Taken Unknown] methocarbamol 500 mg PO Q6H PRN 01/18/22 [History Last Taken Unknown] Allergy/AdvReac Type Severity Reaction Status Date / Time lisinopril AdvReac Swelling Verified 01/19/22 09:17 morphine AdvReac Itching Verified 01/19/22 12:05 Family History Father Cancer Father with hx prostate CA. Diabetes Mother Breast cancer Surgical History (Updated 01/19/22 @ 17:33 by Renee Harding NP-C) History of bladder suspension procedure History of esophagogastroduodenoscopy (EGD) History of surgery Hx of tonsillectomy Social History household members: none Smoking Status: Former smoker how long ago did patient quit smoking: Patient quit smoking approximately 7 years ago. alcohol intake: never substance use type: does not use
--- NOTE | 2022-01-19 17:30 | RAD_ITS ---
INDICATION: Hypoxia, post-op EXAMINATION/TECHNIQUE: X-RAY - XR Chest 2 Views COMPARISON: 01/08/2022 FINDINGS: Emphysematous changes. Wedge-shaped peripheral based infiltrates in the right midlung. Tortuous and calcified thoracic aorta. The heart is mildly enlarged. No pleural effusion or pneumothorax. Degenerative changes of the thoracic spine. Old compression deformity of T12. Vertebral augmentation at L1 and L2. Moderate hiatal hernia. RAD/Chest PA and Lateral IMPRESSION: Wedge-shaped peripheral based infiltrates in the right midlung could represent atelectasis versus infection. COPD. Moderate hiatal hernia. Old compression deformity of T12. Electronically Signed: Robby Carreon MD at 18:49 EDT ,
[2022-01-19] MEDS: Furosemide 40 MG Tablet PO (18:42)
[2022-01-19] MEDS: HYDROcodone Bitartrate/Apap 5/325 Tablet PO (18:42)
[2022-01-19] MEDS: Cephalexin 500 MG Capsule PO ×2 (18:42→22:51)
[2022-01-19] MEDS: Memantine Hydrochloride 10 MG Tablet PO (21:04)
[2022-01-19] MEDS: Nystatin Powder 15gm Bottle 1 APPLIC TOPICAL (22:47)
[2022-01-20] MEDS: HYDROcodone Bitartrate/Apap 5/325 Tablet PO (03:24)
[2022-01-20 05:55] VITALS: O2SAT 86; O2SAT 89; O2SAT 95; O2SAT 97
[2022-01-20 06:01] VITALS: O2SAT 2
[2022-01-20] MEDS: Cephalexin 500 MG Capsule PO (06:15)
--- NOTE | 2022-01-20 06:42 | PCM.PN.HOSP ---
Subjective Subjective Patient overnight with no acute events per self or per nursing report. Discussed findings on chest x-ray with concern for possible atelectasis versus pneumonia and plan for initiation of antibiotic therapy with additionally lab testing pending. Oxygenation was performed this morning for assessment both seated and ambulatory and patient did require 2 L nasal cannula. Given patient is clinically well discussed likely plan of care to set up oxygen supplementation and discharged to home but would continue antibiotic therapy to be cautious. Patient denies fevers, chills, nausea, emesis, abdominal pain, chest pain or dyspnea. Objective Data Objective Data Vital Signs: Vital Signs Temp Pulse Resp BP Pulse Ox 98.1 F 82 18 155/78 H 89 01/19/22 21:07 01/19/22 21:07 01/19/22 21:07 01/19/22 21:07 01/20/22 05:55 Oxygen Flow Rate (L/min) [ 2 AMBULATING with Oxygen #2] Oxygen Flow Rate (L/min) [ 1 AMBULATING with Oxygen #1] Oxygen Flow Rate (L/min) [At 1 REST with Oxygen] Oxygen Flow Rate (L/min) [At 0 REST on Room Air] Oxygen Flow Rate (L/min) 2 Oxygen Delivery Method Nasal Cannula Weight: 145 lb 4.554 oz Body Mass Index (BMI) 23.1 Intake & Output: Intake and Output for Last 24 Hours 01/18/22 01/19/22 01/20/22 23:59 23:59 23:59 Intake Total 359 / 359 Output Total 300 / 300 250 / 250 Balance 59 / 59 -250 / -250 Lab / Micro Data Result Diagrams: 01/20/22 06:15 01/20/22 06:15 Radiography Diagnostic Testing: Radiology Impression Lumbar Spine X-Ray 01/19/22 10:15 IMPRESSION: No intraoperative complications during kyphoplasty at L2 and L3 Electronically Signed: Dileep Arriaza MD at 13:05 EDT , Chest X-Ray 01/19/22 17:30 IMPRESSION: Wedge-shaped peripheral based infiltrates in the right midlung could represent atelectasis versus infection. COPD. Moderate hiatal hernia. Old compression deformity of T12. Electronically Signed: Robby Carreon MD at 18:49 EDT , Physical Exam Narrative Physical Examination: General: awake, alert, oriented x 3 and cooperative, seated upright in MedSurg bed, no acute distress. Skin: normal color, no turgor, no icterus, no cyanosis except recent kyphoplasty, no drainage. HEENT: AT/NC, EOMI, PERRLA, MMM. Lungs: Still diminished, greater bases, mildly right greater than left base, appropriate effort, no rales, ronchi or wheezing. Heart: Currently regular rate and rhythm; no gallop, rub audible. Abdomen: soft, NTTP, ND, normalized BS. Extremities: no cyanosis, clubbing, or edema. Neurological: patient awake, alert, oriented as noted; cognitive function intact; pupils equally reactive to light and accomodation; cranial nerves II-XII grossly normal, moving all 4 extremities, no focal deficits, strength improving, mildly to moderately globally decreased secondary to recent OR. Psychiatric: affect appears normal, no acute evidence of depressive or anxiety feelings. Assessment & Plan Assessment/Plan (1) Hypoxia: PLAN: The patient is an 86 y/o F w/ PMHx: GERD, Hx CVA, Chronic anemia, CKD stage III, HTN, HLD, Tobacco use, Anxiety and Depression, Chronic COPD who presents to the [facility] on 01/19/22 for planned kyphoplasty per Dr. Cagle secondary to history of ongoing intractable back pain with no operative complications however upon return to the patient continued to require oxygen supplementation to maintain appropriate saturations and with removal with ambulation per discussion with staff would de-saturate to the 80s. #1. Acute Post-op Hypoxia, suspect Multifactorial, secondary to recent Anesthetics compounded by Underlying Chronic COPD following recent Kyphoplasty for underlying Chronic back pain as well as atelectasis versus CAP: Admitted to [place], maintained on ATC duoneb therapies, PRN albuterol, encouraged aggressive IS, obtained CXR w/ noted wedge shaped peripheral based infiltrates in the right midlung possibly atelectasis versus infection, COPD changes, moderate hiatal hernia, old compression deformity of T12 with 01/20/22 oxygenation trial with noted 86% on RA with exertion, improving to 95% on 2L NC unfortunately. Given chest x-ray findings to be cautious patient placed on IV Rocephin and azithromycin pending further evaluation. 01/20/22 CBC with WBC 11.2 with left shift and lymphopenia noted, procalcitonin mildly elevated 0.15, urine antigens pending, sputum requested however patient has not had productive cough. Oxygenation ambulatory trial with patient requiring 2 L nasal cannula with exertion as patient was noted to be hypoxic at 86% with ambulation. Patient appears well and discussed plan of care with preference for discharge to home on supplementation with continued oral antibiotic therapies with follow-up early. #2. Chronic COPD: Will hold home inhalers and in the interim transition to ATC Duonebs and PRN albuterol, encourage IS, HOB. #3. Dementia unclear type without behavioral disturbance history: Will continue home memantine regimen, maintain on fall precautions. #4. Chronic Kidney Disease Stage III: Baseline renal function 1.4-1.6, 01/20/22 BUN/Cr 14/1.10. #5. Chronic normocytic anemia/Fe deficiency anemia/Vitamin B12 deficiency anemia: Following w/ Dr. Meza, on oral Fe supplementation as well as IV Fe administration, most recent PRBC transfusions 11/15/21 and 12/05/21. 01/20/22 Hgb 11.5. #6. History of CVA: We will continue aspirin once allowed given recent OR, HTN regimen, not on statin therapy, defer given age. #7. Hypertension: Continue home regimen including Lasix, Norvasc, PRN hydralazine. #8. Hyperlipidemia: Not on statin, defer given age. #9. Former Tobacco Abuse: Encouraged continued cessation. #10. Anxiety and depression: Continue home citalopram regimen. #11. DVT prophylaxis: SCDs, will hold chemoprophylaxis given recent OR. #12. CODE status: Patient GRAY is her daughter and living will is not currently in place. Full Code. Charges/Coding Visit Charges OBSV E&M: 28448 Subsequent observation care L3
[2022-01-20] MEDS: hydrOXYzine PAM 25 MG Capsule 50 MG PO (06:44)
[2022-01-20 07:30] VITALS: BP 131/67; PULSE 60; RESP 18; TEMP 36.7; O2SAT 98
[2022-01-20 07:37] LABS: Absolute Lymphocyte Count 0.54 X10^3/uL (0.83-4.51); Absolute Neutrophil Count 9.9 X10^3/uL (2.0-7.7); Basophil# 0.02 X10^3/uL; Basophil% 0.2 % (0-1); Eosinophil# 0.06 X10^3/uL; Eosinophils% 0.5 % (0-5); Hematocrit 37.2 % (37-47); Hemoglobin 11.5 g/dL (12.0-15.0); Lymphocyte # 0.54 X10^3/ul (0.83-4.51); Lymphocyte % 4.8 % (19-41); Mean Corp Hgb Conc 30.9 g/dL (32-36); Mean Corpuscular Hgb 28.8 pg (27.0-32.0); Mean Corpuscular Volume 93.2 fL (81-99); Mean Platelet Vol. 10.2 fl (6.2-12.0); Monocyte# 0.62 X10^3/uL; Monocyte% 5.5 % (0-10); NRBC Flagged by Analyzer 0 % (0-5); Neutrophil # 9.91 X10^3/uL (2.7-7.7); Neutrophil % 88.6 % (47-70); POSITIVE DIFFERENTIAL YES; POSITIVE MORPHOLOGY YES; Platelet Count 397 K/mm3 (150-450); RBC Distribution Width CV 20.9 % (11.6-14.6); RBC Distribution Width SD 70.8 fl (35.1-43.9); Red Blood Count 3.99 M/mm3 (4.2-5.4); White Blood Count 11.2 K/mm3 (4.4-11.0)
[2022-01-20 07:53] LABS: Differential Indicated SCAN CRITERIA MET
[2022-01-20] MEDS: Memantine Hydrochloride 10 MG Tablet PO (07:59)
[2022-01-20] MEDS: amLODIPine 5 MG Tablet PO (07:59)
[2022-01-20] MEDS: Nystatin Powder 15gm Bottle 1 APPLIC TOPICAL (07:59)
[2022-01-20] MEDS: Furosemide 40 MG Tablet PO (07:59)
[2022-01-20] MEDS: Iron Polysaccharide Complex 150 MG CAPSULE PO (07:59)
[2022-01-20] MEDS: Potassium Chloride Oral Tablet 20 MEQ PO (07:59)
[2022-01-20] MEDS: Citalopram 10 MG Tablet PO (07:59)
[2022-01-20 08:03] LABS: ALB/GLOB Ratio 0.8 RATIO (0.9-2.4); AST(SGOT) 29 U/L (15-37); Alanine Aminotransfer ALT/SGPT 27 U/L (13-56); Albumin, Serum 3.1 g/dL (3.2-5.0); Alkaline Phosphatase 123 U/L (45-117); Anion Gap 6 (5-15); BUN 14 mg/dL (7-18); BUN/Creat Ratio 12.7 RATIO (10-20); Calcium,Total 9.2 mg/dL (8.5-10.1); Chloride 100 mmol/L (98-107); EST Glomerular Filtration Rate 50 mL/min (>60); Est Glom Filt Rate - Afr Amer 60 mL/min (>60); Estimated Creatinine Clearance 34.37 ml/min; Globulin 4.1 g/dL (2.2-4.2); Glucose 100 mg/dL (74-106); Potassium 4.2 mmol/L (3.5-5.1); Protein, Total 7.2 g/dL (6.4-8.2); Sodium Level 135 mmol/L (136-145)
[2022-01-20 08:05] LABS: Procalcitonin 0.15 ng/mL (0.00-0.09)
[2022-01-20 08:18] VITALS: O2SAT 92
[2022-01-20 08:55] LABS: Differential Comment SCANNED
[2022-01-20 08:56] LABS: Anisocytosis 2+; Macrocytosis 1+; Microcytosis 1+
[2022-01-20 09:17] VITALS: O2SAT 85; O2SAT 91
--- NOTE | 2022-01-20 09:25 | DS.PCM_ITS ---
Providers Primary Care Physician: Arnulfo Lynn MD Consultations 01/19/22 16:42 Consult: Hospitalist Routine Consulting Provider: Krystal Boucher Reason for Consult: low o2 sats, can not get pt off o2 EMERGENT Consult: No MD Notified: Yes Date Notified: 01/19/22 Time Notified: 16:42 Method of Notification: Verbal Reason For Visit: KYPHOPLASTY T12 Diagnosis Discharge Diagnosis (1) Hypoxia: Status: Acute Code(s): R09.02 - Hypoxemia Medications at Discharge Home Medications albuterol sulfate 2.5 mg INHALATION Q4H PRN PRN 03/12/20 Breo Ellipta 1 - 2 inh INHALATION DAILY 09/14/21 amlodipine 5 mg PO DAILY 09/14/21 albuterol sulfate 90 mcg/actuation aerosol inhaler 2 puff INHALATION Q6H PRN 10/19/21 citalopram 10 mg tablet 10 mg PO DAILY 10/19/21 hydrocodone-acetaminophen 1 tab PO Q6H PRN PRN 3 Days #10 tablet 10/26/21 furosemide 40 mg tablet 40 mg PO DAILY 12/12/21 gabapentin 100 mg capsule 100 mg PO DAILY 12/12/21 hydroxyzine HCl 10 mg tablet 50 mg PO Q8H PRN tab 12/12/21 memantine 10 mg tablet 10 mg PO BID 12/12/21 nystatin 1 applic TOPICAL BID 01/03/22 polysaccharide iron complex [Ferrex 150] 150 mg PO DAILY 01/03/22 potassium chloride 20 meq PO DAILY 01/03/22 Linzess 72 mcg PO PRN PRN 01/18/22 methocarbamol 500 mg PO Q6H PRN 01/18/22 azithromycin 500 mg PO DAILY 4 Days #4 tab 01/20/22 cefdinir 300 mg PO BID 6 Days #12 cap 01/20/22 Hospital Course Operations - (01/19/[address] Cagle) Procedures None Summary of Care Provided Minutes Spent on Discharge: 35 Hospital Course: Discharge Diagnoses: #1. Acute Post-op Hypoxia, suspect Multifactorial, secondary to recent Anesthetics compounded by Underlying Chronic COPD following recent Kyphoplasty for underlying Chronic back pain as well as atelectasis versus CAP #2. Chronic COPD #3. Dementia unclear type without behavioral disturbance history #4. Chronic Kidney Disease Stage III, unclear subtype #5. Chronic normocytic anemia/Fe deficiency anemia/Vitamin B12 deficiency anemia #6. History of CVA #7. Hypertension #8. Hyperlipidemia #9. Former Tobacco Abuse #10. Anxiety and depression Discharge Summary: The patient is an 86 y/o F w/ PMHx: GERD, Hx CVA, Chronic anemia, CKD stage III, HTN, HLD, Tobacco use, Anxiety and Depression, Chronic COPD who presented to the [facility] on 01/19/22 for planned kyphoplasty per Dr. Cagle secondary to history of ongoing intractable back pain with no operative complications however upon return to the patient continued to require oxygen supplementation to maintain appropriate saturations and with removal with ambulation per discussion with staff would de-saturate to the 80s. Admitted to [place], maintained on ATC duoneb therapies, PRN albuterol, encouraged aggressive IS, obtained CXR w/ noted wedge shaped peripheral based infiltrates in the right midlung possibly atelectasis versus infection, COPD changes, moderate hiatal hernia, old compression deformity of T12 with 01/20/22 oxygenation trial with noted 86% on RA with exertion, improving to 95% on 2L NC unfortunately. Given chest x-ray findings to be cautious patient placed on IV Rocephin and azithromycin pending further evaluation. 01/20/22 CBC with WBC 11.2 with left shift and lymphopenia noted, procalcitonin mildly elevated 0.15, urine antigens pending, sputum requested however patient has not had productive cough. Oxygenation ambulatory trial with patient requiring 2 L nasal cannula with exertion as patient was noted to be hypoxic at 86% with ambulation. Patient appeared well and discussed plan of care with preference for discharge to home on supplementation with continued oral antibiotic therapies with follow-up early. Discharge Time: > 35 Minutes. Weight / BMI Weight Weight: 145 lb 4.554 oz Body Mass Index (BMI) 23.1 ABG / Lab / Microbiology Data Result Diagrams: 01/20/22 06:15 01/20/22 06:15 Laboratory: Laboratory Results - last 24 hr 01/20/22 06:15: WBC 11.2 H, RBC 3.99 L, Hgb 11.5 L, Hct 37.2, MCV 93.2, MCH 28.8, MCHC 30.9 L, RDW Std Deviation 70.8 H, RDW Coeff of Jung 20.9 H, Plt Count 397, MPV 10.2, Immature Gran % (Auto) 0.400, Neut % (Auto) 88.6 H, Lymph % (Auto) 4.8 L, [place] % (Auto) 5.5, Eos % (Auto) 0.5, Baso % (Auto) 0.2, Absolute Neuts (auto) 9.9 H, Absolute Lymphs (auto) 0.54 L, Nucleated RBC % 0, Differential Comment SCANNED, Anisocytosis 2+, Microcytosis 1+, Macrocytosis 1+ 01/20/22 06:15: Sodium 135 L, Potassium 4.2, Chloride 100, Carbon Dioxide 29.0, Anion Gap 6, BUN 14, Creatinine 1.10 H, Estim Creat Clear Calc 34.37, Est GFR (MDRD) Af Amer 60, Est GFR (MDRD) Non-Af 50 L, BUN/Creatinine Ratio 12.7, Glucose 100, Calcium 9.2, Total Bilirubin 0.30, AST 29, ALT 27, Alkaline Phosphatase 123 H, Total Protein 7.2, Albumin 3.1 L, Globulin 4.1, Albumin/Globulin Ratio 0.8 L 01/20/22 06:53: Procalcitonin 0.15 H Radiography Diagnostic Testing: Radiology Impression Lumbar Spine X-Ray 01/19/22 10:15 IMPRESSION: No intraoperative complications during kyphoplasty at L2 and L3 Electronically Signed: Dileep Arriaza MD at 13:05 EDT , Chest X-Ray 01/19/22 17:30 IMPRESSION: Wedge-shaped peripheral based infiltrates in the right midlung could represent atelectasis versus infection. COPD. Moderate hiatal hernia. Old compression deformity of T12. Electronically Signed: Robby Carreon MD at 18:49 EDT , Meaningful Use Info Meaningful Use Diagnoses (Choose all that apply): None applicable Discharge Plan Admission Primary Reason for Your Visit: Hypoxia, CAP Attending Provider: Mauro Cagle Primary Care Provider: Arnulfo Lynn Chi Instructions Patient Instructions: Understanding Oxygen Therapy, Using Oxygen Safely, What Is Pneumonia?, Using Oxygen at Home, Treating Pneumonia, Traveling with Oxygen Discharge Orders/Prescriptions Prescriptions: New cefdinir 300 mg capsule 300 mg PO BID 6 Days Qty: 12 RF: 0 azithromycin 500 mg tablet 500 mg PO DAILY 4 Days Qty: 4 RF: 0 Continued citalopram 10 mg tablet 10 mg PO DAILY RF: 0 albuterol sulfate 90 mcg/actuation HFA aerosol inhaler 2 puff inhalation Q6H PRN (Reason: SOB) RF: 0 gabapentin 100 mg capsule 100 mg PO DAILY RF: 0 hydroxyzine HCl 10 mg tablet 50 mg PO Q8H PRN (Reason: Itching) RF: 0 furosemide [Lasix] 40 mg tablet 40 mg PO DAILY RF: 0 memantine 10 mg tablet 10 mg PO BID RF: 0 albuterol sulfate 2.5 MG/3 ML solution for nebulization 2.5 mg inhalation Q4H PRN PRN (Reason: Sob &/Or Wheezing) RF: 0 amlodipine 5 mg tablet 5 mg PO DAILY RF: 0 Breo Ellipta 100-25 mcg/dose blister with device 1 - 2 inh INHALATION DAILY RF: 0 hydrocodone-acetaminophen 1 TABLET tablet 1 tab PO Q6H PRN PRN (Reason: Pain) 3 Days Qty: 10 RF: 0 polysaccharide iron complex [Ferrex 150] 150 mg iron Capsule 150 mg PO DAILY RF: 0 nystatin 100,000 unit/gram Powder 1 applic TOPICAL BID RF: 0 potassium chloride 20 mEq Tablet Extended Release 20 meq PO DAILY RF: 0 Linzess 72 mcg Capsule 72 mcg PO PRN PRN (Reason: Constipation) RF: 0 methocarbamol 500 mg tablet 500 mg PO Q6H PRN (Reason: Spasms) RF: 0 Referrals / Follow Up: Mauro Cagle MD [STAFF PHYSICIAN] - (Follow-up as previously arranged post- op.) Rubio Nolasco DO [STAFF PHYSICIAN] - (Please follow-up with pulmonary, may see pulmonary RETAIL BUSINESS MANAGER to have reassessment given post-op hypoxia and oxygen supplementa tion.) Arnulfo Lynn Chi, MD [Primary Care Provider] - (Please follow-up within 2-3 days to have PCP re-evaluation, oxygenation re-assessment.) Disposition Disposition (needs filled in before D/C Order can be placed): Home Health Service Charges/Coding Visit Charges OBSV E&M: 99415 Observation care discharge
[2022-01-20] MEDS: Ceftriaxone 1 GM/50 ML BAG IV (10:18)
[2022-01-20] MEDS: Gabapentin 100 MG Capsule PO (10:40)
--- NOTE | 2022-01-20 10:40 | CASEMGMT ---
Social Work SW spoke w/Michell at [facility] to make sure pt can return on oxygen. She states that it would need to be ordered, pt needs to be able to manage it herself. She states they would be willing to try. Michell also asked how pt is getting around, as per [facility] staff, pt is a standby assist w/her walker. SW let Michell know this. JAN communicated this to CM, who will be calling daughter. SW remains available to assist w/d/c back to [place] if needed. SHAHAB Zavala
--- NOTE | 2022-01-20 11:09 | CASEMGMT ---
GILES CAMACHO NOTE: Pt being discharged home and qualifies for Home O2 @ 2l/m w/exertion. GILES CAMACHO spoke w/pt's daughter, Sasha, and she is aware of home O2 needed and discussed DME co. She states okay w/[employer]. Pt to be given portable O2 tank from [facility] supply to go back to [facility]. Sasha aware [employer] to be notified when pt arrives to [facility] for concentrator and smaller portable O2 tank delivery. Sasha aware 2 atb's prescribed and have been sent to [facility] retail pharmacy. She asks for them to be delivered to pt's room so she can take back to [facility]. She inquired about the Cephalexin prescribed by Dr Cagle yesterday that her has already picked up. GILES CAMACHO spoke w/Dr Boucher for clarification. She states Cephalexin to be stopped and for pt to start Azithromycin and Cefdinir. Call back to Sasha and VM left re: same. Sasha states she will transport pt back to [facility] @ d/c. GILES Mejia, made aware of above. Ca CHAVEZN GILES CM
[2022-01-20 11:54] VITALS: BP 131/67; PULSE 60; RESP 18; TEMP 36.9; O2SAT 98
== END 2022-01-20 12:35 | disposition home health service (06) ==
LOC: SDC 08:37 → AC 08:38 → MS3 17:53
PROVIDERS: Family Medicine; PCP Family Medicine Geriatric Medicine; Referring Provider Anesthesiology Pain Medicine; Visit Provider Anesthesiology Pain Medicine
PROC: (CPT 22514; principal; 2022-01-19 09:55)
DX: M80.08XA Age-related osteoporosis with current pathological fracture, vertebra(e), initial encounter for fracture (principal); F03.90 Unspecified dementia, unspecified severity, without behavioral disturbance, psychotic disturbance, mood disturbance, and anxiety; J44.9 Chronic obstructive pulmonary disease, unspecified; N18.32 Chronic kidney disease, stage 3b; J95.89 Other postprocedural complications and disorders of respiratory system, not elsewhere classified; R09.02 Hypoxemia; I12.9 Hypertensive chronic kidney disease with stage 1 through stage 4 chronic kidney disease, or unspecified chronic kidney disease; K21.9 Gastro-esophageal reflux disease without esophagitis; E78.5 Hyperlipidemia, unspecified; E78.00 Pure hypercholesterolemia, unspecified; Z86.16 Personal history of COVID-19; Z87.01 Personal history of pneumonia (recurrent); E55.9 Vitamin D deficiency, unspecified; M85.80 Other specified disorders of bone density and structure, unspecified site; Z79.899 Other long term (current) drug therapy; Z87.891 Personal history of nicotine dependence; Y83.8 Other surgical procedures as the cause of abnormal reaction of the patient, or of later complication, without mention of misadventure at the time of the procedure; D50.9 Iron deficiency anemia, unspecified; D51.9 Vitamin B12 deficiency anemia, unspecified; M51.17 Intervertebral disc disorders with radiculopathy, lumbosacral region; K44.9 Diaphragmatic hernia without obstruction or gangrene; M51.16 Intervertebral disc disorders with radiculopathy, lumbar region; M48.061 Spinal stenosis, lumbar region without neurogenic claudication
CPT/HCPCS: 22514; 22515; 01942; 36415; 71046; 72100; 76000; 80053; 84145; 85025; 88305; 88307; 88311; 94762; 99251; G0463; J2405

== ENCOUNTER → 2022-02-06 | Outpatient (CLI) | payer MEDICARE, MEDICAID, SELFPAY ==
[2022-02-06 17:30] LABS: Absolute Lymphocyte Count 0.54 X10^3/uL (0.83-4.51); Absolute Neutrophil Count 11.1 X10^3/uL (2.0-7.7); Basophil# 0.02 X10^3/uL; Basophil% 0.2 % (0-1); Eosinophil# 0.13 X10^3/uL; Hemoglobin 9.2 g/dL (12.0-15.0); Lymphocyte # 0.54 X10^3/ul (0.83-4.51); Lymphocyte % 4.2 % (19-41); Mean Corp Hgb Conc 30.7 g/dL (32-36); Mean Corpuscular Hgb 28.9 pg (27.0-32.0); Mean Corpuscular Volume 94.3 fL (81-99); Mean Platelet Vol. 10.8 fl (6.2-12.0); Monocyte# 0.84 X10^3/uL; Monocyte% 6.6 % (0-10); NRBC Flagged by Analyzer 0 % (0-5); Neutrophil # 11.13 X10^3/uL (2.7-7.7); Neutrophil % 87.4 % (47-70); POSITIVE DIFFERENTIAL YES; POSITIVE MORPHOLOGY YES; Platelet Count 392 K/mm3 (150-450); RBC Distribution Width SD 69.5 fl (35.1-43.9); Red Blood Count 3.18 M/mm3 (4.2-5.4); White Blood Count 12.7 K/mm3 (4.4-11.0)
[2022-02-06 17:35] LABS: Differential Indicated SCAN CRITERIA MET
[2022-02-06 17:51] LABS: Vitamin D,25 Hydroxy 25.2 ng/mL
[2022-02-06 18:01] LABS: ALB/GLOB Ratio 0.7 RATIO (0.9-2.4); AST(SGOT) 30 U/L (15-37); Alanine Aminotransfer ALT/SGPT 30 U/L (13-56); Albumin, Serum 2.9 g/dL (3.2-5.0); Alkaline Phosphatase 110 U/L (45-117); Anion Gap 8 (5-15); BUN 21 mg/dL (7-18); BUN/Creat Ratio 19.4 RATIO (10-20); Calcium,Total 9.2 mg/dL (8.5-10.1); Chloride 103 mmol/L (98-107); Creatinine, Serum 1.08 mg/dL (0.55-1.02); EST Glomerular Filtration Rate 51 mL/min (>60); Est Glom Filt Rate - Afr Amer 62 mL/min (>60); Globulin 3.9 g/dL (2.2-4.2); Glucose 130 mg/dL (74-106); Potassium 4.3 mmol/L (3.5-5.1); Protein, Total 6.8 g/dL (6.4-8.2); Sodium Level 135 mmol/L (136-145); Thyroid Stim Hormone (TSH) 1.29 uIU/mL (0.358-3.74)
[2022-02-06 18:05] LABS: Anisocytosis 1+; Differential Comment SCANNED
== END | disposition home or self-care (01) ==
LOC: POLAB3 15:33
PROVIDERS: PCP Family Medicine Geriatric Medicine; Visit Provider Family Medicine Geriatric Medicine
DX: E55.9 Vitamin D deficiency, unspecified (principal); I10 Essential (primary) hypertension
CPT/HCPCS: 36415; 80053; 82306; 84443; 85025

== ENCOUNTER → 2022-03-27 | Outpatient (CLI) | payer MEDICARE, MEDICAID, SELFPAY ==
[2022-03-27 17:25] LABS: Absolute Lymphocyte Count 0.83 X10^3/uL (0.83-4.51); Absolute Neutrophil Count 5.3 X10^3/uL (2.0-7.7); Basophil# 0.06 X10^3/uL; Basophil% 0.9 % (0-1); Eosinophils% 1.5 % (0-5); Hematocrit 21.7 % (37-47); Hemoglobin 6.6 g/dL (12.0-15.0); Lymphocyte # 0.83 X10^3/ul (0.83-4.51); Lymphocyte % 12.2 % (19-41); Mean Corp Hgb Conc 30.4 g/dL (32-36); Mean Corpuscular Hgb 27.7 pg (27.0-32.0); Mean Corpuscular Volume 91.2 fL (81-99); Mean Platelet Vol. 9.6 fl (6.2-12.0); Monocyte# 0.53 X10^3/uL; Monocyte% 7.8 % (0-10); NRBC Flagged by Analyzer 0 % (0-5); Neutrophil % 77.5 % (47-70); Platelet Count 454 K/mm3 (150-450); RBC Distribution Width CV 16.6 % (11.6-14.6); RBC Distribution Width SD 55.1 fl (35.1-43.9); Red Blood Count 2.38 M/mm3 (4.2-5.4); White Blood Count 6.8 K/mm3 (4.4-11.0)
[2022-03-27 18:53] LABS: Anion Gap 5 (5-15); BUN 15 mg/dL (7-18); BUN/Creat Ratio 10.6 RATIO (10-20); Calcium,Total 9.1 mg/dL (8.5-10.1); Chloride 103 mmol/L (98-107); Creatinine, Serum 1.41 mg/dL (0.55-1.02); EST Glomerular Filtration Rate 38 mL/min (>60); Est Glom Filt Rate - Afr Amer 45 mL/min (>60); Glucose 114 mg/dL (74-106); Potassium 3.6 mmol/L (3.5-5.1); Sodium Level 138 mmol/L (136-145)
== END | disposition home or self-care (01) ==
PROVIDERS: PCP Family Medicine Geriatric Medicine; Visit Provider Family Medicine Geriatric Medicine
DX: R60.9 Edema, unspecified (principal)
CPT/HCPCS: 36415; 80048; 85025

== ENCOUNTER → 2022-03-29 | Outpatient (CLI) | payer MEDICARE, MEDICAID, SELFPAY ==
[2022-03-29] VITALS (7 sets, daily range): BP systolic 114–131; BP diastolic 59–72; PULSE 53–85; RESP 12–64; TEMP 35.8–36.4; O2SAT 95–96; BMI 23.1
[2022-03-29] MEDS: 0.9% NaCl Peripheral Flush Adult/Peds IV (08:09)
[2022-03-29] MEDS: Furosemide 40 MG/4 ML Vial IV (10:09)
== END | disposition home or self-care (01) ==
LOC: MEDOUTP 07:35
PROVIDERS: PCP Family Medicine Geriatric Medicine; Referring Provider Family Medicine Geriatric Medicine; Visit Provider Family Medicine Geriatric Medicine
DX: D64.9 Anemia, unspecified (principal)
CPT/HCPCS: 36415; 36430; 86850; 86900; 86901; 86920; 86922; J7040; P9016; A4216; J1940

== ENCOUNTER → 2022-03-30 | Outpatient (CLI) | payer MEDICARE, MEDICAID, SELFPAY ==
[2022-03-30 15:12] LABS: Absolute Lymphocyte Count 0.94 X10^3/uL (0.83-4.51); Absolute Neutrophil Count 6.4 X10^3/uL (2.0-7.7); Basophil# 0.05 X10^3/uL; Basophil% 0.6 % (0-1); Eosinophil# 0.15 X10^3/uL; Eosinophils% 1.8 % (0-5); Hematocrit 31.1 % (37-47); Hemoglobin 9.5 g/dL (12.0-15.0); Lymphocyte # 0.94 X10^3/ul (0.83-4.51); Lymphocyte % 11.4 % (19-41); Mean Corp Hgb Conc 30.5 g/dL (32-36); Mean Corpuscular Hgb 27.5 pg (27.0-32.0); Mean Corpuscular Volume 89.9 fL (81-99); Mean Platelet Vol. 10.4 fl (6.2-12.0); Monocyte# 0.72 X10^3/uL; Monocyte% 8.7 % (0-10); NRBC Flagged by Analyzer 0 % (0-5); Neutrophil # 6.35 X10^3/uL (2.7-7.7); Neutrophil % 77.1 % (47-70); Platelet Count 430 K/mm3 (150-450); RBC Distribution Width CV 16.5 % (11.6-14.6); RBC Distribution Width SD 54.3 fl (35.1-43.9); Red Blood Count 3.46 M/mm3 (4.2-5.4); White Blood Count 8.2 K/mm3 (4.4-11.0)
== END | disposition home or self-care (01) ==
LOC: MTLAB 12:52
PROVIDERS: PCP Family Medicine Geriatric Medicine; Referring Provider Family Medicine Geriatric Medicine; Visit Provider Family Medicine Geriatric Medicine
DX: D64.9 Anemia, unspecified (principal)
CPT/HCPCS: 36415; 85025

== ENCOUNTER → 2022-04-04 | Outpatient (REF) | payer MEDICARE, MEDICAID, SELFPAY ==
[2022-04-04 10:40] LABS: Anion Gap 4 (5-15); BUN 14 mg/dL (7-18); BUN/Creat Ratio 9.5 RATIO (10-20); Calcium,Total 9.3 mg/dL (8.5-10.1); Chloride 104 mmol/L (98-107); Creatinine, Serum 1.47 mg/dL (0.55-1.02); EST Glomerular Filtration Rate 36 mL/min (>60); Est Glom Filt Rate - Afr Amer 43 mL/min (>60); Glucose 102 mg/dL (74-106); Potassium 4.1 mmol/L (3.5-5.1); Sodium Level 137 mmol/L (136-145)
== END ==
LOC: OLS.SWAL 04:00
PROVIDERS: PCP Family Medicine Geriatric Medicine; Referring Provider Family Medicine Geriatric Medicine; Visit Provider Family Medicine Geriatric Medicine
DX: D64.9 Anemia, unspecified (principal)
CPT/HCPCS: 36415; 80048

== ENCOUNTER → 2022-04-24 | Outpatient (CLI) | payer MEDICARE, MEDICAID, SELFPAY ==
[2022-04-24 12:20] LABS: Absolute Neutrophil Count 5.3 X10^3/uL (2.0-7.7); Basophil# 0.05 X10^3/uL; Basophil% 0.7 % (0-1); Eosinophil# 0.12 X10^3/uL; Eosinophils% 1.7 % (0-5); Hematocrit 24.1 % (37-47); Hemoglobin 7.1 g/dL (12.0-15.0); Lymphocyte % 12.9 % (19-41); Mean Corp Hgb Conc 29.5 g/dL (32-36); Mean Corpuscular Hgb 26.3 pg (27.0-32.0); Mean Corpuscular Volume 89.3 fL (81-99); Mean Platelet Vol. 10.3 fl (6.2-12.0); Monocyte# 0.58 X10^3/uL; Monocyte% 8.3 % (0-10); NRBC Flagged by Analyzer 0 % (0-5); Neutrophil # 5.32 X10^3/uL (2.7-7.7); Neutrophil % 76.1 % (47-70); Platelet Count 375 K/mm3 (150-450); RBC Distribution Width CV 16.8 % (11.6-14.6); RBC Distribution Width SD 54.9 fl (35.1-43.9)
== END | disposition home or self-care (01) ==
PROVIDERS: PCP Family Medicine Geriatric Medicine; Referring Provider Family Medicine Geriatric Medicine; Visit Provider Family Medicine Geriatric Medicine
DX: R53.83 Other fatigue (principal)
CPT/HCPCS: 36415; 85025

== ENCOUNTER 2022-04-26 08:37 | Outpatient (CLI) | payer MEDICARE, MEDICAID, SELFPAY ==
[2022-04-26] VITALS (7 sets, daily range): BP systolic 115–143; BP diastolic 52–71; PULSE 69–100; RESP 16; TEMP 36–36.5; O2SAT 91–97; BMI 23.1
[2022-04-26] MEDS: 0.9% NaCl Peripheral Flush Adult/Peds IV (09:16)
[2022-04-26] MEDS: Furosemide 20 MG/2 ML VIAL IV (11:40)
== END 2022-04-26 23:59 | disposition home or self-care (01) ==
LOC: MEDOUTP 08:37
PROVIDERS: PCP Family Medicine Geriatric Medicine; Referring Provider Family Medicine Geriatric Medicine; Visit Provider Family Medicine Geriatric Medicine
DX: D64.9 Anemia, unspecified (principal)
CPT/HCPCS: 36415; 36430; 86850; 86900; 86901; 86920; 86922; J7040; P9016; A4216; J1940

== ENCOUNTER → 2022-05-15 | Outpatient (CLI) | payer MEDICARE, MEDICAID, SELFPAY ==
[2022-05-15 16:22] LABS: Absolute Neutrophil Count 4.6 X10^3/uL (2.0-7.7); Basophil# 0.03 X10^3/uL; Basophil% 0.5 % (0-1); Eosinophil# 0.15 X10^3/uL; Eosinophils% 2.4 % (0-5); Hematocrit 32.7 % (37-47); Hemoglobin 9.9 g/dL (12.0-15.0); Lymphocyte % 14.5 % (19-41); Mean Corp Hgb Conc 30.3 g/dL (32-36); Mean Corpuscular Hgb 26.1 pg (27.0-32.0); Mean Corpuscular Volume 86.3 fL (81-99); Mean Platelet Vol. 10.2 fl (6.2-12.0); Monocyte# 0.55 X10^3/uL; Monocyte% 8.9 % (0-10); NRBC Flagged by Analyzer 0 % (0-5); Neutrophil # 4.57 X10^3/uL (2.7-7.7); Neutrophil % 73.5 % (47-70); Platelet Count 328 K/mm3 (150-450); RBC Distribution Width CV 17.6 % (11.6-14.6); RBC Distribution Width SD 55.9 fl (35.1-43.9); Red Blood Count 3.79 M/mm3 (4.2-5.4); White Blood Count 6.2 K/mm3 (4.4-11.0)
[2022-05-15 17:00] LABS: Vitamin D,25 Hydroxy 21.6 ng/mL
[2022-05-15 17:07] LABS: ALB/GLOB Ratio 0.7 RATIO (0.9-2.4); AST(SGOT) 26 U/L (15-37); Alanine Aminotransfer ALT/SGPT 13 U/L (13-56); Alkaline Phosphatase 136 U/L (45-117); Anion Gap 6 (5-15); BUN 11 mg/dL (7-18); BUN/Creat Ratio 7.5 RATIO (10-20); Calcium,Total 9.3 mg/dL (8.5-10.1); Chloride 105 mmol/L (98-107); Creatinine, Serum 1.47 mg/dL (0.55-1.02); EST Glomerular Filtration Rate 36 mL/min (>60); Est Glom Filt Rate - Afr Amer 43 mL/min (>60); Globulin 4.6 g/dL (2.2-4.2); Glucose 92 mg/dL (74-106); Potassium 4.2 mmol/L (3.5-5.1); Protein, Total 7.6 g/dL (6.4-8.2); Sodium Level 141 mmol/L (136-145); Thyroid Stim Hormone (TSH) 1.34 uIU/mL (0.358-3.74)
== END | disposition home or self-care (01) ==
LOC: POLAB3 15:17
PROVIDERS: PCP Family Medicine Geriatric Medicine; Visit Provider Family Medicine Geriatric Medicine
DX: E55.9 Vitamin D deficiency, unspecified (principal); I10 Essential (primary) hypertension
CPT/HCPCS: 36415; 80053; 82306; 84443; 85025

== ENCOUNTER 2022-07-24 17:37 | Emergency (ER) | payer MEDICARE, MEDICAID, SELFPAY ==
[2022-07-24 17:38] VITALS: BP 121/71; PULSE 78; RESP 14; TEMP 36.6; O2SAT 96; BMI 22.6
--- NOTE | 2022-07-24 17:46 | EKG12_ITS ---
Test Reason : LEFT ARM PAIN Blood Pressure : / mmHG Vent. Rate : 080 BPM Atrial Rate : 080 BPM P-R Int : 140 ms QRS Dur : 078 ms QT Int : 420 ms P-R-T Axes : -12 -17 012 degrees QTc Int : 484 ms Normal sinus rhythm Normal ECG Confirmed by GENIE BARLOW, NATALIE ([id number]), restaurant expeditor FLORENTIN MORLEY ([id number]) on 07/25/2022 9:12:28 AM Referred By: FERNANDA Confirmed By:NATALIE PRESCOTT MD
--- NOTE | 2022-07-24 18:52 | RAD_ITS ---
STUDY: X-RAY - LEFT SHOULDER REASON FOR EXAM: Female, 87 years old. Atraumatic pain TECHNIQUE: 2 view(s) of the shoulder. COMPARISON: None. FINDINGS: There is mild degenerative arthrosis of the glenohumeral articulation. There is hypertrophic osteoarthrosis of the acromioclavicular joint with inferior osseous spur formation. Normal acromion. There is demineralization of the humerus and visualized osseous structures. The soft tissue structures are unremarkable. There is no demonstrated fracture. Normal visualized pulmonary apex. RAD/Shoulder min 2 Views IMPRESSION: Degenerative change. Electronically Signed: Anam Diaz MD at 19:45 EST ,
--- NOTE | 2022-07-24 18:52 | EX.ED.UPPERE ---
HPI History of Present Illness HPI Narrative: Atraumatic left shoulder and upper arm pain. Denies any injury. Chief Complaint: Upper Extremity Injury Informant: patient Occured/Mechanism Mechanism/Context: No injury and No blunt trauma Onset/Context/Timing Onset: Days Context: Gradual Onset Timing: Continuous Quality of Pain: Dull and Aching Current Severity: Mild Maximum Severity: Mild Associated Symptoms Associated Symptoms: Negative for Parasthesia, Weakness or Loss of Funtion Narrative Narrative: 87-year-old female history of chronic kidney disease, COPD, CVA, anemia and dementia. Reportedly is at an extended care facility. Was sent in due to atraumatic left shoulder and upper arm pain for last several days. Worse with movement. Denies any fall or trauma. No fever or redness. She is right-hand dominant. She said the pains been going on for at least 2 to 3 days. She denies any fever or chills. No prior history or surgery to this arm or shoulder. Prior similar symptoms: No Recent Illness/Hospitalization: No PFSH PFSH Medical History Anemia Anxiety Anxiety and depression Arthritis Bladder disease Bronchiectasis Chronic anemia Chronic renal failure, stage 3 (moderate) CKD (chronic kidney disease), stage III Contusion of left foot, initial encounter COPD (chronic obstructive pulmonary disease) CVA (cerebral vascular accident) Dementia Disorder of bone and cartilage Diverticula of colon Duodenal ulcer Dysmetabolic syndrome Early onset Alzheimer's dementia Fatigue Former smoker GERD (gastroesophageal reflux disease) History of echocardiogram History of edema HLD (hyperlipidemia) HTN (hypertension) Hypercholesteremia Hypertrophy of nasal turbinates Irritant dermatitis Lichen sclerosus Lower extremity edema Multiple pulmonary nodules [facility] resident Obesity Osteopenia Pneumonia Pneumonia due to COVID-19 virus Seborrheic keratoses Severe anemia Shortness of breath on exertion TIA (transient ischemic attack) Tobacco abuse Urinary, incontinence, stress female Vitamin B12 deficiency Vitamin D deficiency Wears dentures Wears glasses Yeast dermatitis Home Medications albuterol sulfate 2.5 mg/3 mL (0.083 %) solution for nebulization 2.5 mg inhalation Q4H PRN PRN Sob &/Or Wheezing 03/12/20 [History Last Taken Unknown] amlodipine 5 mg tablet 5 mg PO DAILY 09/14/21 [History Last Taken 01/19/22] fluticasone furoate 100 mcg-vilanterol 25 mcg/dose inhalation powder (Breo Ellipta) 1 - 2 inh inhalation DAILY 09/14/21 [History Last Taken Unknown] albuterol sulfate 90 mcg/actuation aerosol inhaler 2 puff inhalation Q6H PRN SOB 10/19/21 [History Last Taken Unknown] citalopram 10 mg tablet 10 mg PO DAILY 10/19/21 [History Last Taken Unknown] hydrocodone-acetaminophen 5-325mg 5mg-325mg 1 tab PO Q6H PRN PRN Pain 3 days #10 TABLETS 10/26/21 [Rx Last Taken Unknown] furosemide 40 mg tablet (Lasix) 40 mg PO DAILY 12/12/21 [History Last Taken Unknown] gabapentin 100 mg capsule 100 mg PO DAILY 12/12/21 [History Last Taken Unknown] hydroxyzine HCl 10 mg tablet 50 mg PO Q8H PRN Itching 12/12/21 [History Last Taken 01/19/22] memantine 10 mg tablet 10 mg PO BID 12/12/21 [History Last Taken 01/19/22] nystatin 100,000 unit/gram topical powder 1 applic topical BID 01/03/22 [History Last Taken Unknown] polysaccharide iron complex 150 mg iron capsule (Ferrex) 150 mg PO DAILY 01/03/22 [History Last Taken Unknown] potassium chloride 20 mEq tablet,extended release 20 meq PO DAILY 01/03/22 [History Last Taken Unknown] linaclotide 72 mcg capsule (Linzess) 72 mcg PO PRN PRN Constipation 01/18/22 [History Last Taken Unknown] methocarbamol 500 mg tablet 500 mg PO Q6H PRN Spasms 01/18/22 [History Last Taken Unknown] azithromycin 500 mg tablet 500 mg PO DAILY 4 days #4 tabs 01/20/22 [Rx Last Taken Unknown] cefdinir 300 mg capsule 300 mg PO BID 6 days #12 caps 01/20/22 [Rx Last Taken Unknown] Allergy/AdvReac Type Severity Reaction Status Date / Time lisinopril AdvReac Swelling Verified 07/24/22 17:38 morphine AdvReac Itching Verified 07/24/22 17:38 Family History Father Cancer Father with hx prostate CA. Diabetes Mother Breast cancer Surgical History History of bladder suspension procedure History of esophagogastroduodenoscopy (EGD) History of surgery Hx of tonsillectomy Social History household members: none Smoking Status: Former smoker how long ago did patient quit smoking: Patient quit smoking approximately 7 years ago. alcohol intake: never substance use type: does not use ROS ROS ED ROS Narrative Denies. Review of Systems ROS Unobtainable: Denies due to encephalopathy Constitutional Constitutional ED: Denies chills or fever(s) Eyes Eyes: Denies blurry vision ENT ENT ED: Denies ear pain Cardiovascular Cardiovascular: Denies chest pain Respiratory/Chest Respiratory/Chest: Denies cough or dyspnea Gastrointestinal Gastrointestinal: Denies abdominal pain Genitourinary Genitourinary ED: Denies dysuria or hematuria Musculoskeletal Musculoskeletal: Denies back pain Integumentary Denies abscess Neurologic Neurologic: Denies headache(s) Psychiatric Psychiatric: Denies anxiety Endocrine Endocrinology: Denies cold intolerance Hematologic/Lymphatic Hematologic/Lymphatic: Denies easy bleeding Allergic/Immunologic Allergic/Immunologic ED: Denies mouth swelling or tongue swelling EXAM Physical Exam Narrative Exam Narrative: 87-year-old female no acute distress. Vital signs stable afebrile. Patient does not look septic toxic. She is in no distress. H EENT exam unremarkable. Moist mucous membranes. Neck nontender no lymphadenopathy. Lungs clear to auscultation. Heart regular rhythm rate about 80 no murmur. Chest wall nontender. Abdomen soft nontender. Moving the right upper and both lower extremities. Nontender no edema. She has tenderness to her left shoulder left upper arm. No swelling. No deformity. No signs of trauma or bruising. No redness or warmth. No joint swelling. Seems to have pain with movement of the left shoulder which may be consistent with lichen arthritis. I do not see any obvious fracture or dislocation. Her elbow is nontender as is the forearm and wrist. She has a normal radial pulse. Normal wind operations supervisor strength in the left hand. The posterior shoulder and soft tissues nontender. Back is nontender. Neurologically she is awake and alert. Answering questions and following commands. Passively she will move the left shoulder and actively causes her discomfort. There is no signs of septic joint. Const Vital Signs: 11/22/22 17:38 Temperature 97.8 F Temperature Source Temporal Pulse Rate 78 Respiratory Rate 14 Blood Pressure 121/71 H Blood Pressure Mean 87 Pulse Ox 96 Oxygen Delivery Method Room Air Positive well nourished and well developed; Negative for obese, cachectic, contractures or unkempt General Appearance ED: well developed; Negative for unkempt, cachectic, contractures, cyanotic or diaphoretic Nutritional Appearance: Negative for cachectic or obese HEENT Reports moist mucous membranes normocephalic and atraumatic; Negative for trauma or tenderness Eyes PERRL and EOMs intact bilaterally Neck full ROM and supple General: Negative for tenderness Lymph Lymphatic: Negative for other Chest Wall inspection of chest normal and palpation of chest normal Chest: Negative for other Resp normal respiratory effort and clear to auscultation bilaterally Effort and Inspection: Negative for pain with movement Auscultation: Negative for rales, rhonchi or wheezes Cardio regular rate, regular rhythm, S1 normal heart sound, S2 normal heart sound and no murmurs Rate: Negative for bradycardia or tachycardic Rhythm: Negative for abnormal rhythm GI non-tender, non-distended and no masses Inspection: Negative for abdominal distention Auscultation: normoactive bowel sounds Palpation: soft; Negative for tender or guarding Bladder / Kidney Exam: No other Back/Spine no CVA tenderness General Back: Negative for CVA tenderness Cervical Spine: Negative for cervical spine tenderness Thoracic Spine / Upper Back: Negative for thoracic spinal tenderness Lumbar Spine / Lower Back: Negative for lumbar spinal tenderness Extremity normal to inspection and full ROM Extremity Narrative: Except tenderness to the left shoulder and decreased range of motion. No deformity. No obvious dislocation. No redness, warmth or any signs of septic joint. General Extremety ED: Negative for edema General Extremity: Negative for edema Neuro moves all extremities and no focal motor deficits Sensorium / Orientation: alert and oriented to person Motor Exam: strength 5/5 throughout Psych mental status grossly normal Appearance: Negative for unkempt Attitude: No agitated Mood & Affect: Negative for depressed, anxious or tearful Skin General Skin Exam: Negative for petechiae Lesions: no lesions Rashes: no rashes Trauma: no lacerations or abrasions; Negative for abrasion or laceration MDM MDM MDM Narrative Medical decision making narrative: 87-year-old atraumatic left shoulder pain. May be arthritis. Rule out fracture or dislocation which I think are unlikely clinically. Again no signs of septic joint. Repeat exam unchanged. Daughter and granddaughter present in the room. Daughter works here at the hospital. We went over x-rays. Her exam is consistent with inflammation in her left elbow. Currently does not look infected. Its not red or hot. There is only mild swelling. She will be treated with Tylenol and Motrin. Ice. If not improving they may need to treat to try a course of steroids. If any signs of infection such as redness, fever or worsening to be reevaluated which I stressed to the family. At this time she does not need labs. She has no history of gout. Radiography Diagnostic Testing: Left shoulder x-ray 2 view shows no acute abnormality. Chronic arthritis. Interpreted both by myself and radiologist. Left elbow x-ray 3 views again shows arthritis but no acute fracture or dislocation. Again interpreted both by myself and the radiologist. Discharge Plan Triage Chief Complaint: Upper Extremity Injury ED Provider: Dru Morales Dx/Rx/DC Orders Clinical Impression: Arthralgia of left elbow, Arthritis Instructions: ED Osteoarthritis Prescriptions: No Action citalopram 10 mg tablet 10 mg PO DAILY albuterol sulfate 90 mcg/actuation HFA aerosol inhaler 2 puff inhalation Q6H PRN (Reason: SOB) gabapentin 100 mg capsule 100 mg PO DAILY hydroxyzine HCl 10 mg tablet 50 mg PO Q8H PRN (Reason: Itching) Label Comments: TAKE 1 TABLET BY MOUTH EVERY EVENING DIRECTLY BEFORE BED furosemide [Lasix] 40 mg tablet 40 mg PO DAILY memantine 10 mg tablet 10 mg PO BID albuterol sulfate 2.5 MG/3 ML solution for nebulization 2.5 mg inhalation Q4H PRN PRN (Reason: Sob &/Or Wheezing) Rx Instructions: Use q4 hours and PRN for wheezing amlodipine 5 mg tablet 5 mg PO DAILY Label Comments: take 1 tablet by mouth once daily fluticasone furoate-vilanterol [Breo Ellipta] 100-25 mcg/dose blister with device 1 - 2 inh INHALATION DAILY Label Comments: inhale 1 puff by mouth and INTO THE LUNGS once daily hydrocodone-acetaminophen 1 TABLET tablet 1 tab PO Q6H PRN PRN (Reason: Pain) 3 Days Qty: 10 0RF polysaccharide iron complex [Ferrex 150] 150 mg iron Capsule 150 mg PO DAILY nystatin 100,000 unit/gram Powder 1 applic TOPICAL BID potassium chloride 20 mEq Tablet Extended Release 20 meq PO DAILY Linzess 72 mcg Capsule 72 mcg PO PRN PRN (Reason: Constipation) methocarbamol 500 mg tablet 500 mg PO Q6H PRN (Reason: Spasms) cefdinir 300 mg capsule 300 mg PO BID 6 Days Qty: 12 0RF azithromycin 500 mg tablet 500 mg PO DAILY 4 Days Qty: 4 0RF Primary Care Provider: Arnulfo Lynn Chi Referrals: Arnulfo Lynn Chi, MD [Primary Care Provider] - 3-5 Days if not improving Activity Restrictions/Additional Instructions: Your x-rays show arthritis but no broken bones or dislocations. Clinically this appears to be inflammation secondary to arthritis in your elbow. Currently there is no signs of infection. If it gets really red or you develop a fever it needs to be reevaluated. But again at this time it does not look to be infected. Ice the elbow 30 minutes at a time 3-5 times a day. Tylenol for pain. Motrin for inflammation. If not improving they can try a course of steroids such as prednisone. Follow-up if not improving. Disposition Disposition: Home, Self Care
--- NOTE | 2022-07-24 18:58 | RAD_ITS ---
STUDY: X-RAY - LEFT HUMERUS REASON FOR EXAM: Female, 87 years old. Atraumatic pain TECHNIQUE: Frontal and lateral view(s) of the humerus. COMPARISON: None. FINDINGS: There is diffuse demineralization of the humerus. There is no demonstrated fracture or osseous destructive process. There is degenerative change of the shoulder and elbow. There is no demonstrated soft tissue abnormality. RAD/Humerus min 2 Views IMPRESSION: Demineralization of the osseous structures. Electronically Signed: Anam Diaz MD at 19:42 EST ,
[2022-07-24] MEDS: Acetaminophen 325 MG Tablet 650 MG PO (19:13)
[2022-07-24 20:58] VITALS: PULSE 74; RESP 15; O2SAT 99
== END 2022-07-24 20:59 | disposition home or self-care (01) ==
PROVIDERS: Emergency Provider Emergency Medicine; PCP Family Medicine Geriatric Medicine; Visit Provider Emergency Medicine
DX: M19.022 Primary osteoarthritis, left elbow (principal); J44.9 Chronic obstructive pulmonary disease, unspecified; N18.30 Chronic kidney disease, stage 3 unspecified; I12.9 Hypertensive chronic kidney disease with stage 1 through stage 4 chronic kidney disease, or unspecified chronic kidney disease; E78.00 Pure hypercholesterolemia, unspecified; Z86.73 Personal history of transient ischemic attack (TIA), and cerebral infarction without residual deficits; Z86.16 Personal history of COVID-19; Z79.899 Other long term (current) drug therapy; Z87.891 Personal history of nicotine dependence
CPT/HCPCS: 73030; 73060; 93005; 99283

== ENCOUNTER → 2022-08-14 | Outpatient (CLI) | payer MEDICARE, MEDICAID, SELFPAY ==
[2022-08-14 17:22] LABS: Absolute Lymphocyte Count 0.72 X10^3/uL (0.83-4.51); Absolute Neutrophil Count 4.4 X10^3/uL (2.0-7.7); Basophil# 0.04 X10^3/uL; Basophil% 0.7 % (0-1); Eosinophil# 0.19 X10^3/uL; Eosinophils% 3.3 % (0-5); Hematocrit 20.1 % (37-47); Lymphocyte # 0.72 X10^3/ul (0.83-4.51); Lymphocyte % 12.5 % (19-41); Mean Corp Hgb Conc 28.4 g/dL (32-36); Mean Corpuscular Hgb 22.4 pg (27.0-32.0); Mean Corpuscular Volume 79.1 fL (81-99); Mean Platelet Vol. 10.5 fl (6.2-12.0); Monocyte# 0.46 X10^3/uL; NRBC Flagged by Analyzer 0 % (0-5); Neutrophil # 4.35 X10^3/uL (2.7-7.7); Neutrophil % 75.2 % (47-70); POSITIVE COUNT YES; Platelet Count 436 K/mm3 (150-450); RBC Distribution Width CV 18.7 % (11.6-14.6); RBC Distribution Width SD 53.9 fl (35.1-43.9); Red Blood Count 2.54 M/mm3 (4.2-5.4); White Blood Count 5.8 K/mm3 (4.4-11.0)
[2022-08-14 17:33] LABS: Differential Indicated SCAN CRITERIA MET; Hemoglobin 5.7 g/dL (12.0-15.0)
[2022-08-14 17:34] LABS: Vitamin D,25 Hydroxy 23.7 ng/mL
[2022-08-14 17:46] LABS: ALB/GLOB Ratio 0.7 RATIO (0.9-2.4); AST(SGOT) 16 U/L (15-37); Alanine Aminotransfer ALT/SGPT 11 U/L (13-56); Albumin, Serum 2.8 g/dL (3.2-5.0); Alkaline Phosphatase 115 U/L (45-117); Anion Gap 10 (5-15); BUN 11 mg/dL (7-18); Calcium,Total 8.5 mg/dL (8.5-10.1); Chloride 107 mmol/L (98-107); Creatinine, Serum 1.37 mg/dL (0.55-1.02); EST Glomerular Filtration Rate 39 mL/min (>60); Est Glom Filt Rate - Afr Amer 47 mL/min (>60); Globulin 4.3 g/dL (2.2-4.2); Glucose 119 mg/dL (74-106); Potassium 3.7 mmol/L (3.5-5.1); Protein, Total 7.1 g/dL (6.4-8.2); Sodium Level 141 mmol/L (136-145); Thyroid Stim Hormone (TSH) 1.33 uIU/mL (0.358-3.74)
[2022-08-14 18:00] LABS: Anisocytosis 1+; Hypochromasia 2+; Microcytosis 1+; Platelet Estimate SLT INC (ADEQ); Polychromasia RARE; Red Cell Morphology N CHROM NORMAL (NORM C&C)
[2022-08-15 15:39] LABS: Pathologist Review Reviewed
== END | disposition home or self-care (01) ==
LOC: POLAB3 15:21
PROVIDERS: PCP Family Medicine Geriatric Medicine; Visit Provider Family Medicine Geriatric Medicine
DX: E55.9 Vitamin D deficiency, unspecified (principal); I10 Essential (primary) hypertension
CPT/HCPCS: 36415; 80053; 82306; 84443; 85025

== ENCOUNTER → 2022-08-16 | Outpatient (CLI) | payer MEDICARE, MEDICAID, SELFPAY ==
[2022-08-16] VITALS (7 sets, daily range): BP systolic 135–151; BP diastolic 50–76; PULSE 65–89; RESP 14–18; TEMP 36.5–36.7; O2SAT 95–99; BMI 23.1
[2022-08-16] MEDS: 0.9% NaCl Peripheral Flush Adult/Peds IV (07:52)
[2022-08-16] MEDS: Furosemide 40 MG/4 ML Vial IV (10:11)
--- NOTE | 2022-08-16 12:23 | NURSING ---
charted end vitals on wrong patient. Blood transfusion still in progress.
== END | disposition home or self-care (01) ==
LOC: MEDOUTP 07:31
PROVIDERS: PCP Family Medicine Geriatric Medicine; Referring Provider Family Medicine Geriatric Medicine; Visit Provider Family Medicine Geriatric Medicine
DX: D50.9 Iron deficiency anemia, unspecified (principal)
CPT/HCPCS: 36415; 36430; 86850; 86900; 86901; 86920; 86922; J7040; P9016; A4216; J1940

== ENCOUNTER → 2022-08-17 | Outpatient (REF) | payer MEDICARE, MEDICAID, SELFPAY ==
[2022-08-17 13:03] LABS: Hematocrit 27.9 % (37-47); Hemoglobin 8.4 g/dL (12.0-15.0)
== END ==
LOC: OLS.SWAL 12:30
PROVIDERS: PCP Family Medicine Geriatric Medicine; Visit Provider Family Medicine Geriatric Medicine
DX: D50.9 Iron deficiency anemia, unspecified (principal)
CPT/HCPCS: 36415; 85014; 85018

== ENCOUNTER → 2022-10-09 | Outpatient (REF) | payer MEDICARE, MEDICAID, SELFPAY ==
[2022-10-09 09:28] LABS: Hematocrit 16.9 % (37-47); Mean Corp Hgb Conc 27.8 g/dL (32-36); Mean Corpuscular Hgb 23.4 pg (27.0-32.0); Mean Corpuscular Volume 84.1 fL (81-99); Mean Platelet Vol. 11.1 fl (6.2-12.0); POSITIVE COUNT YES; POSITIVE MORPHOLOGY YES; Platelet Count 331 K/mm3 (150-450); RBC Distribution Width CV 21.1 % (11.6-14.6); RBC Distribution Width SD 63.5 fl (35.1-43.9); Red Blood Count 2.01 M/mm3 (4.2-5.4); White Blood Count 4.8 K/mm3 (4.4-11.0)
[2022-10-09 09:35] LABS: Hemoglobin 4.7 g/dL (12.0-15.0); Scan Indicated on CBC? Y/N YES- FLAGS NOTED
[2022-10-09 10:07] LABS: Differential Comment SCANNED
[2022-10-11 13:47] LABS: Pathologist Review Reviewed
== END ==
LOC: OLS.SWAL 05:00
PROVIDERS: PCP Family Medicine Geriatric Medicine
DX: I10 Essential (primary) hypertension (principal)
CPT/HCPCS: 36415; 85027

== ENCOUNTER → 2022-10-10 | Outpatient (CLI) | payer MEDICARE, MEDICAID, SELFPAY ==
[2022-10-10] VITALS (7 sets, daily range): BP systolic 121–152; BP diastolic 60–82; PULSE 59–87; RESP 16–18; TEMP 36.1–36.6; O2SAT 93–100; BMI 22.6
== END | disposition home or self-care (01) ==
LOC: MEDOUTP 07:55
PROVIDERS: PCP Family Medicine Geriatric Medicine
DX: D58.2 Other hemoglobinopathies (principal)
CPT/HCPCS: 36430; 86850; 86900; 86901; 86920; 86922; J7040; P9016; A4216

== ENCOUNTER → 2022-11-07 | Outpatient (REF) | payer MEDICARE, MEDICAID, SELFPAY ==
[2022-11-07 09:21] LABS: Hematocrit 22.5 % (37-47); Hemoglobin 6.5 g/dL (12.0-15.0); Mean Corp Hgb Conc 28.9 g/dL (32-36); Mean Corpuscular Hgb 24.9 pg (27.0-32.0); Mean Corpuscular Volume 86.2 fL (81-99); Mean Platelet Vol. 10.9 fl (6.2-12.0); Platelet Count 320 K/mm3 (150-450); RBC Distribution Width CV 18.3 % (11.6-14.6); RBC Distribution Width SD 57.5 fl (35.1-43.9); Red Blood Count 2.61 M/mm3 (4.2-5.4); White Blood Count 5.4 K/mm3 (4.4-11.0)
== END ==
LOC: OLS.SWAL 05:00
PROVIDERS: PCP Family Medicine Geriatric Medicine
DX: D64.9 Anemia, unspecified (principal)
CPT/HCPCS: 36415; 85027

== ENCOUNTER → 2022-11-14 | Outpatient (REF) | payer MEDICARE, MEDICAID, SELFPAY ==
[2022-11-14 08:03] LABS: Hematocrit 20.3 % (37-47); Hemoglobin 5.7 g/dL (12.0-15.0); Mean Corp Hgb Conc 28.1 g/dL (32-36); Mean Corpuscular Hgb 24.4 pg (27.0-32.0); Mean Corpuscular Volume 86.8 fL (81-99); Mean Platelet Vol. 10.9 fl (6.2-12.0); POSITIVE COUNT YES; Platelet Count 341 K/mm3 (150-450); RBC Distribution Width CV 18.4 % (11.6-14.6); RBC Distribution Width SD 57.7 fl (35.1-43.9); Red Blood Count 2.34 M/mm3 (4.2-5.4); White Blood Count 6.8 K/mm3 (4.4-11.0)
[2022-11-14 08:07] LABS: Scan Indicated on CBC? Y/N YES- FLAGS NOTED
[2022-11-15 12:09] LABS: Pathologist Review Reviewed
== END ==
LOC: OLS.SWAL 05:00
PROVIDERS: PCP Family Medicine Geriatric Medicine
DX: D62 Acute posthemorrhagic anemia (principal)
CPT/HCPCS: 36415; 85027; 86920; 86922

== ENCOUNTER → 2022-11-14 | Outpatient (CLI) | payer MEDICARE, MEDICAID, SELFPAY ==
[2022-11-14 10:42] VITALS: BP 99/84; PULSE 86; RESP 16; TEMP 36.4; O2SAT 95; BMI 23.1
[2022-11-14 11:11] VITALS: BP 122/60; PULSE 86; RESP 16; TEMP 36.6; O2SAT 92
[2022-11-14 12:17] VITALS: BP 120/57; PULSE 69; RESP 16; TEMP 36.3
[2022-11-14] MEDS: Furosemide 20 MG/2 ML VIAL IV (12:53)
[2022-11-14 13:26] VITALS: BP 132/59; PULSE 78; RESP 16; TEMP 36.1; O2SAT 98
[2022-11-14 14:28] VITALS: BP 125/59; PULSE 74; RESP 16; TEMP 36.3; O2SAT 96
== END | disposition home or self-care (01) ==
PROVIDERS: PCP Family Medicine Geriatric Medicine
DX: D58.2 Other hemoglobinopathies (principal)
CPT/HCPCS: 36430; 86644; 86850; 86900; 86901; 86920; 86922; J7040; P9016; A4216; J1940

== ENCOUNTER → 2022-11-24 | Outpatient (REF) | payer MEDICARE, MEDICAID, SELFPAY ==
[2022-11-24 09:16] LABS: Hematocrit 27.9 % (37-47); Mean Corp Hgb Conc 28.7 g/dL (32-36); Mean Corpuscular Hgb 25.8 pg (27.0-32.0); Mean Platelet Vol. 11.2 fl (6.2-12.0); Platelet Count 360 K/mm3 (150-450); RBC Distribution Width CV 18.3 % (11.6-14.6); RBC Distribution Width SD 59.5 fl (35.1-43.9); White Blood Count 6.7 K/mm3 (4.4-11.0)
== END ==
LOC: OLS.SWAL 08:05
PROVIDERS: PCP Family Medicine Geriatric Medicine
DX: N18.32 Chronic kidney disease, stage 3b (principal)
CPT/HCPCS: 36415; 85027

== ENCOUNTER → 2022-12-06 | Outpatient (REF) | payer MEDICARE, MEDICAID, SELFPAY ==
[2022-12-06 10:35] LABS: Hematocrit 24.7 % (37-47); Hemoglobin 7.1 g/dL (12.0-15.0); Mean Corp Hgb Conc 28.7 g/dL (32-36); Mean Corpuscular Hgb 25.9 pg (27.0-32.0); Mean Corpuscular Volume 90.1 fL (81-99); Mean Platelet Vol. 11.4 fl (6.2-12.0); Platelet Count 330 K/mm3 (150-450); RBC Distribution Width CV 18.9 % (11.6-14.6); RBC Distribution Width SD 62.1 fl (35.1-43.9); Red Blood Count 2.74 M/mm3 (4.2-5.4); White Blood Count 6.8 K/mm3 (4.4-11.0)
== END ==
LOC: OLS.SWAL 07:15
PROVIDERS: PCP Family Medicine Geriatric Medicine
DX: D62 Acute posthemorrhagic anemia (principal)
CPT/HCPCS: 36415; 85027

== ENCOUNTER → 2022-12-10 | Outpatient (CLI) | payer MEDICARE, MEDICAID, SELFPAY ==
[2022-12-10 08:41] VITALS: BP 134/69; PULSE 77; RESP 16; TEMP 36.7; O2SAT 96
[2022-12-10 10:38] VITALS: BP 139/65; PULSE 69; RESP 16; TEMP 36.6
[2022-12-10 11:53] VITALS: BP 143/71; PULSE 68; RESP 16; TEMP 36.5
[2022-12-10] MEDS: Furosemide 20 MG/2 ML VIAL IV (12:20)
[2022-12-10 12:48] VITALS: BP 117/65; PULSE 81; RESP 16; TEMP 36.6; O2SAT 95
[2022-12-10 13:45] VITALS: BP 127/61; PULSE 68; RESP 16; TEMP 36.6; O2SAT 98
== END | disposition home or self-care (01) ==
LOC: MEDOUTP 08:30
PROVIDERS: PCP Family Medicine Geriatric Medicine; Referring Provider Internal Medicine; Visit Provider Internal Medicine
DX: D58.2 Other hemoglobinopathies (principal)
CPT/HCPCS: 36415; 36430; 86850; 86900; 86901; 86920; 86922; J7040; P9016; A4216; J1940

== ENCOUNTER → 2022-12-31 | Outpatient (REF) | payer MEDICARE, MEDICAID, SELFPAY ==
[2022-12-31 09:26] LABS: Hematocrit 23.3 % (37-47); Hemoglobin 6.8 g/dL (12.0-15.0); Mean Corp Hgb Conc 29.2 g/dL (32-36); Mean Corpuscular Hgb 27.9 pg (27.0-32.0); Mean Corpuscular Volume 95.5 fL (81-99); Mean Platelet Vol. 11.5 fl (6.2-12.0); POSITIVE MORPHOLOGY YES; Platelet Count 293 K/mm3 (150-450); RBC Distribution Width CV 19.4 % (11.6-14.6); RBC Distribution Width SD 66.7 fl (35.1-43.9); Red Blood Count 2.44 M/mm3 (4.2-5.4); White Blood Count 5.9 K/mm3 (4.4-11.0)
[2022-12-31 09:31] LABS: Scan Indicated on CBC? Y/N YES- FLAGS NOTED
[2022-12-31 11:02] LABS: Differential Comment SCANNED
== END ==
LOC: OLS.SWAL 07:35
PROVIDERS: PCP Family Medicine Geriatric Medicine; Referring Provider Internal Medicine; Visit Provider Internal Medicine
DX: D64.9 Anemia, unspecified (principal)
CPT/HCPCS: 36415; 85027

== ENCOUNTER 2023-01-01 07:39 | Outpatient (CLI) | payer MEDICARE, MEDICAID, SELFPAY ==
[2023-01-01 08:02] VITALS: BP 132/67; PULSE 70; RESP 18; TEMP 36.2; O2SAT 94; BMI 22.8
[2023-01-01 09:55] VITALS: BP 124/56; PULSE 62; RESP 16; TEMP 36.2
[2023-01-01 10:55] VITALS: BP 136/70; PULSE 71; RESP 16; TEMP 36.3; O2SAT 93
[2023-01-01] MEDS: Furosemide 20 MG/2 ML VIAL IV (11:20)
[2023-01-01 11:48] VITALS: BP 147/79; PULSE 81; RESP 16; TEMP 36.2; O2SAT 95
[2023-01-01 12:47] VITALS: BP 134/70; PULSE 83; RESP 16; TEMP 36.2; O2SAT 100
== END 2023-01-01 07:40 | disposition home or self-care (01) ==
LOC: MEDOUTP 07:39
PROVIDERS: PCP Family Medicine Geriatric Medicine; Referring Provider Internal Medicine; Visit Provider Internal Medicine
DX: D58.2 Other hemoglobinopathies (principal)
CPT/HCPCS: 36430; 86850; 86900; 86901; 86920; 86922; J7040; P9016; A4216; J1940

== ENCOUNTER → 2023-01-29 | Outpatient (REF) | payer MEDICARE, MEDICAID, SELFPAY ==
[2023-01-29 08:48] LABS: Hematocrit 22.5 % (37-47); Hemoglobin 6.4 g/dL (12.0-15.0); Mean Corp Hgb Conc 28.4 g/dL (32-36); Mean Corpuscular Hgb 27.6 pg (27.0-32.0); Mean Platelet Vol. 11.1 fl (6.2-12.0); Platelet Count 280 K/mm3 (150-450); RBC Distribution Width CV 17.2 % (11.6-14.6); RBC Distribution Width SD 60.1 fl (35.1-43.9); Red Blood Count 2.32 M/mm3 (4.2-5.4)
== END ==
LOC: OLS.SWAL 05:00
PROVIDERS: PCP Family Medicine Geriatric Medicine; Visit Provider Internal Medicine
DX: D64.9 Anemia, unspecified (principal)
CPT/HCPCS: 36415; 85027

== ENCOUNTER 2023-01-30 07:31 | Outpatient (CLI) | payer SELFPAY ==
[2023-01-30 07:35] VITALS: BP 132/72; PULSE 79; RESP 18; TEMP 36.7; O2SAT 95; BMI 22.6
[2023-01-30 08:28] VITALS: BP 124/56; PULSE 63; RESP 16; TEMP 36.6; O2SAT 94
[2023-01-30 09:27] VITALS: BP 118/61; PULSE 76; RESP 16; TEMP 36.9; O2SAT 96
[2023-01-30] MEDS: 0.9% NaCl Peripheral Flush Adult/Peds IV (09:34)
[2023-01-30] MEDS: Furosemide 20 MG/2 ML VIAL IV (09:59)
[2023-01-30 10:30] VITALS: BP 132/63; PULSE 77; RESP 16; TEMP 36.8; O2SAT 96
[2023-01-30 12:03] VITALS: BP 142/70; PULSE 66; RESP 16; TEMP 36.8; O2SAT 94
== END 2023-01-30 07:32 | disposition home or self-care (01) ==
LOC: MEDOUTP 07:31
PROVIDERS: PCP Family Medicine Geriatric Medicine; Referring Provider Internal Medicine; Visit Provider Internal Medicine
DX: D62 Acute posthemorrhagic anemia (principal)
CPT/HCPCS: 36430; 86850; 86900; 86901; 86920; 86922; J7040; P9016; A4216; J1940

== ENCOUNTER → 2023-01-31 05:00 | Outpatient (REF) | payer MEDICARE, MEDICAID, SELFPAY ==
[2023-01-31 10:01] LABS: Mean Corpuscular Hgb 28.5 pg (27.0-32.0); Mean Corpuscular Volume 91.8 fL (81-99); Mean Platelet Vol. 11.5 fl (6.2-12.0); Platelet Count 283 K/mm3 (150-450); RBC Distribution Width CV 16.8 % (11.6-14.6); RBC Distribution Width SD 56.8 fl (35.1-43.9); Red Blood Count 3.16 M/mm3 (4.2-5.4); White Blood Count 5.9 K/mm3 (4.4-11.0)
== END ==
LOC: OLS.SWAL 05:00
PROVIDERS: PCP Family Medicine Geriatric Medicine; Visit Provider Internal Medicine
DX: D64.9 Anemia, unspecified (principal)
CPT/HCPCS: 36415; 85027

== ENCOUNTER → 2023-02-26 | Outpatient (REF) | payer MEDICARE, MEDICAID, SELFPAY ==
[2023-02-26 09:55] LABS: Hematocrit 19.9 % (37-47); Hemoglobin 5.7 g/dL (12.0-15.0); Mean Corp Hgb Conc 28.6 g/dL (32-36); Mean Corpuscular Hgb 27.3 pg (27.0-32.0); Mean Corpuscular Volume 95.2 fL (81-99); POSITIVE COUNT YES; Platelet Count 272 K/mm3 (150-450); RBC Distribution Width CV 16.5 % (11.6-14.6); RBC Distribution Width SD 57.9 fl (35.1-43.9); Red Blood Count 2.09 M/mm3 (4.2-5.4); White Blood Count 4.7 K/mm3 (4.4-11.0)
[2023-02-26 10:00] LABS: Scan Indicated on CBC? Y/N YES- FLAGS NOTED
[2023-02-28 08:25] LABS: Pathologist Review Reviewed
== END ==
LOC: OLS.SWAL 05:00
PROVIDERS: PCP Family Medicine Geriatric Medicine; Visit Provider Internal Medicine
DX: D64.9 Anemia, unspecified (principal)
CPT/HCPCS: 36415; 85027; 86850; 86900; 86901; 86920; 86922

== ENCOUNTER 2023-02-27 07:19 | Outpatient (CLI) | payer SELFPAY ==
[2023-02-27] VITALS (8 sets, daily range): BP systolic 119–161; BP diastolic 65–77; PULSE 64–79; RESP 16; TEMP 36.1–36.3; O2SAT 95–96; BMI 22.6
[2023-02-27] MEDS: 0.9% NaCl Peripheral Flush Adult/Peds IV (07:57)
[2023-02-27] MEDS: Furosemide 20 MG/2 ML VIAL IV (10:12)
== END 2023-02-27 07:20 | disposition home or self-care (01) ==
LOC: MEDOUTP 07:19
PROVIDERS: PCP Family Medicine Geriatric Medicine; Referring Provider Internal Medicine; Visit Provider Internal Medicine
DX: D64.9 Anemia, unspecified (principal)
CPT/HCPCS: 36430; 86850; 86900; 86901; 86920; 86922; J7040; P9016; A4216; J1940

== ENCOUNTER → 2023-03-26 | Outpatient (REF) | payer MEDICARE, MEDICAID, SELFPAY ==
[2023-03-26 08:36] LABS: Hematocrit 19.5 % (37-47); Mean Corp Hgb Conc 30.3 g/dL (32-36); Mean Corpuscular Hgb 29.2 pg (27.0-32.0); Mean Corpuscular Volume 96.5 fL (81-99); Mean Platelet Vol. 10.4 fl (6.2-12.0); POSITIVE COUNT YES; Platelet Count 285 K/mm3 (150-450); RBC Distribution Width CV 18.7 % (11.6-14.6); RBC Distribution Width SD 64.5 fl (35.1-43.9); Red Blood Count 2.02 M/mm3 (4.2-5.4); White Blood Count 5.5 K/mm3 (4.4-11.0)
[2023-03-26 08:40] LABS: Hemoglobin 5.9 g/dL (12.0-15.0)
[2023-03-26 08:42] LABS: Scan Indicated on CBC? Y/N YES- FLAGS NOTED
[2023-03-28 09:51] LABS: Pathologist Review Reviewed
== END ==
LOC: OLS.SWAL 05:00
PROVIDERS: PCP Family Medicine Geriatric Medicine; Visit Provider Internal Medicine
DX: D64.9 Anemia, unspecified (principal)
CPT/HCPCS: 36415; 85027; 86850; 86900; 86901; 86920; 86922

== ENCOUNTER 2023-03-27 07:39 | Outpatient (CLI) | payer MEDICARE, MEDICAID, SELFPAY ==
[2023-03-27] VITALS (7 sets, daily range): BP systolic 113–145; BP diastolic 61–75; PULSE 60–76; RESP 16; TEMP 36.4–36.5; O2SAT 94–97
[2023-03-27] MEDS: Furosemide 20 MG/2 ML VIAL IV (10:13)
[2023-03-27] MEDS: 0.9% NaCl Peripheral Flush Adult/Peds IV (10:15)
== END 2023-03-27 07:40 | disposition home or self-care (01) ==
PROVIDERS: PCP Family Medicine Geriatric Medicine; Referring Provider Internal Medicine; Visit Provider Internal Medicine
DX: D64.9 Anemia, unspecified (principal)
CPT/HCPCS: 36430; 86644; 86850; 86900; 86901; 86920; 86922; J7040; P9016; A4216; J1940

== ENCOUNTER → 2023-04-23 | Outpatient (REF) | payer MEDICARE, MEDICAID, SELFPAY ==
[2023-04-23 09:22] LABS: Hematocrit 19.4 % (37-47); Mean Corp Hgb Conc 28.4 g/dL (32-36); Mean Corpuscular Volume 95.1 fL (81-99); Mean Platelet Vol. 10.6 fl (6.2-12.0); POSITIVE COUNT YES; Platelet Count 382 K/mm3 (150-450); RBC Distribution Width CV 17.9 % (11.6-14.6); RBC Distribution Width SD 61.1 fl (35.1-43.9); Red Blood Count 2.04 M/mm3 (4.2-5.4); White Blood Count 6.2 K/mm3 (4.4-11.0)
[2023-04-23 11:02] LABS: Hemoglobin 5.5 g/dL (12.0-15.0)
[2023-04-25 08:39] LABS: Pathologist Review Reviewed
== END ==
LOC: OLS.SWAL 05:00
PROVIDERS: PCP Family Medicine Geriatric Medicine; Visit Provider Internal Medicine
DX: D64.9 Anemia, unspecified (principal)
CPT/HCPCS: 36415; 85027

== ENCOUNTER 2023-04-24 07:34 | Outpatient (CLI) | payer MEDICARE, MEDICAID, SELFPAY ==
[2023-04-24] VITALS (8 sets, daily range): BP systolic 106–126; BP diastolic 52–68; PULSE 63–78; RESP 16–18; TEMP 36.2–36.6; O2SAT 93–98
[2023-04-24] MEDS: 0.9% NaCl Peripheral Flush Adult/Peds IV (07:58)
[2023-04-24] MEDS: Furosemide 20 MG/2 ML VIAL IV (10:46)
== END 2023-04-24 07:35 | disposition home or self-care (01) ==
LOC: MEDOUTP 07:34
PROVIDERS: PCP Family Medicine Geriatric Medicine; Referring Provider Internal Medicine; Visit Provider Internal Medicine
DX: D62 Acute posthemorrhagic anemia (principal)
CPT/HCPCS: 36430; 86850; 86900; 86901; 86920; 86922; J7040; P9016; A4216; J1940

== ENCOUNTER → 2023-05-13 | Outpatient (REF) | payer MEDICARE, MEDICAID, SELFPAY ==
[2023-05-14 09:42] LABS: Color, Urine Straw (Yellow); Glucose, Dipstick Normal (Normal); Ketone-Dipstick Negative (Negative); Leukocyte Esterase-Dipstick 500 /ul (Negative); Nitrite-Dipstick Negative (Negative); Occult Blood-Urine Negative /ul (Negative); Protein-Dipstick Negative (Negative); Specific Gravity, Urine 1.005 (1.002-1.030); Urine Bilirubin Dipstick Negative (Negative); Urine Clarity Clear (Clear); Urine Urobilinogen Normal (Normal)
== END ==
LOC: OLS.SWAL 01:30
PROVIDERS: PCP Family Medicine Geriatric Medicine; Visit Provider Internal Medicine
DX: N39.0 Urinary tract infection, site not specified (principal)
CPT/HCPCS: 81002; 87077; 87086; 87088; 87186

== ENCOUNTER → 2023-05-15 | Outpatient (REF) | payer MEDICARE, MEDICAID, SELFPAY ==
[2023-05-15 09:13] LABS: Hematocrit 26.1 % (37-47); Hemoglobin 7.6 g/dL (12.0-15.0); Mean Corp Hgb Conc 29.1 g/dL (32-36); Mean Corpuscular Volume 96.3 fL (81-99); Mean Platelet Vol. 11.5 fl (6.2-12.0); Platelet Count 256 K/mm3 (150-450); RBC Distribution Width CV 18.6 % (11.6-14.6); RBC Distribution Width SD 63.7 fl (35.1-43.9); Red Blood Count 2.71 M/mm3 (4.2-5.4); White Blood Count 4.7 K/mm3 (4.4-11.0)
== END ==
LOC: OLS.SWAL 05:00
PROVIDERS: PCP Family Medicine Geriatric Medicine; Visit Provider Internal Medicine
DX: D64.9 Anemia, unspecified (principal)
CPT/HCPCS: 36415; 85027

== ENCOUNTER → 2023-05-28 | Outpatient (REF) | payer MEDICARE, MEDICAID, SELFPAY ==
[2023-05-29 07:56] LABS: Mucous, Urine 0 SEEN /hpf (<or=2+); Red Blood Cells-Urine 0 SEEN /hpf (0-5)
[2023-05-29 08:10] LABS: Color, Urine Yellow (Yellow); Glucose, Dipstick Normal (Normal); Ketone-Dipstick Negative (Negative); Leukocyte Esterase-Dipstick 25 /ul (Negative); Nitrite-Dipstick Negative (Negative); Occult Blood-Urine Negative /ul (Negative); Protein-Dipstick 15 mg/dl (Negative); Specific Gravity, Urine 1.015 (1.002-1.030); Urine Bilirubin Dipstick Negative (Negative); Urine Clarity Clear (Clear); Urine Urobilinogen Normal (Normal)
[2023-05-29 08:32] LABS: Bacteria RARE /hpf (None Seen); Squamous Epithelial Cells - UA 0-5 SEEN /hpf (5-10); White Blood Cells 0-5 SEEN /hpf (0-5)
== END ==
LOC: OLS.SWAL 12:30
PROVIDERS: PCP Family Medicine Geriatric Medicine
DX: N39.0 Urinary tract infection, site not specified (principal)
CPT/HCPCS: 81001; 87077; 87086; 87088; 87186

== ENCOUNTER → 2023-06-05 | Outpatient (REF) | payer MEDICARE, MEDICAID, SELFPAY ==
[2023-06-05 09:54] LABS: Hematocrit 14.5 % (37-47); Mean Corp Hgb Conc 29.7 g/dL (32-36); Mean Corpuscular Hgb 27.6 pg (27.0-32.0); Mean Corpuscular Volume 92.9 fL (81-99); POSITIVE COUNT YES; POSITIVE MORPHOLOGY YES; Platelet Count 359 K/mm3 (150-450); RBC Distribution Width CV 20.2 % (11.6-14.6); RBC Distribution Width SD 67.6 fl (35.1-43.9); Red Blood Count 1.56 M/mm3 (4.2-5.4); White Blood Count 8.2 K/mm3 (4.4-11.0)
[2023-06-05 10:11] LABS: Hemoglobin 4.3 g/dL (12.0-15.0); Scan Indicated on CBC? Y/N YES- FLAGS NOTED
[2023-06-05 10:55] LABS: Differential Comment SCANNED
[2023-06-06 10:43] LABS: Pathologist Review Reviewed
== END ==
LOC: OLS.SWAL 07:25
PROVIDERS: PCP Family Medicine Geriatric Medicine; Visit Provider Internal Medicine
DX: D64.9 Anemia, unspecified (principal)
CPT/HCPCS: 36415; 85027; 86850; 86900; 86901; 86920; 86922

== ENCOUNTER 2023-06-06 07:33 | Outpatient (CLI) | payer MEDICARE, MEDICAID, SELFPAY ==
[2023-06-06] VITALS (8 sets, daily range): BP systolic 105–130; BP diastolic 52–62; PULSE 67–92; RESP 16–22; TEMP 36.6–36.8; O2SAT 84–100; BMI 22.6
[2023-06-06] MEDS: Furosemide 20 MG/2 ML VIAL IV (10:13)
[2023-06-06] MEDS: 0.9% Normal Saline (500mL Bag) 500 ML 15 ML IV (10:14)
[2023-06-06] MEDS: 0.9% NaCl Peripheral Flush Adult/Peds IV (10:14)
== END 2023-06-06 07:34 | disposition home or self-care (01) ==
PROVIDERS: PCP Family Medicine Geriatric Medicine; Referring Provider Internal Medicine; Visit Provider Internal Medicine
DX: D64.9 Anemia, unspecified (principal)
CPT/HCPCS: 36430; 86644; 86850; 86900; 86901; 86920; 86922; J7040; P9016; A4216; J1940

== ENCOUNTER → 2023-06-26 | Outpatient (REF) | payer MEDICARE, MEDICAID, SELFPAY ==
[2023-06-26 09:32] LABS: Hematocrit 24.3 % (37-47); Hemoglobin 7.1 g/dL (12.0-15.0); Mean Corp Hgb Conc 29.2 g/dL (32-36); Mean Corpuscular Hgb 25.7 pg (27.0-32.0); Mean Platelet Vol. 10.5 fl (6.2-12.0); Platelet Count 320 K/mm3 (150-450); RBC Distribution Width CV 18.2 % (11.6-14.6); RBC Distribution Width SD 58.2 fl (35.1-43.9); Red Blood Count 2.76 M/mm3 (4.2-5.4); White Blood Count 5.8 K/mm3 (4.4-11.0)
== END ==
LOC: OLS.SWAL 05:00
PROVIDERS: PCP Family Medicine Geriatric Medicine; Visit Provider Internal Medicine
DX: D64.9 Anemia, unspecified (principal)
CPT/HCPCS: 36415; 85027

== ENCOUNTER → 2023-07-03 | Outpatient (REF) | payer MEDICARE, MEDICAID, SELFPAY ==
[2023-07-03 09:13] LABS: Hematocrit 25.4 % (37-47); Hemoglobin 7.4 g/dL (12.0-15.0); Mean Corp Hgb Conc 29.1 g/dL (32-36); Mean Corpuscular Hgb 25.4 pg (27.0-32.0); Mean Corpuscular Volume 87.3 fL (81-99); Mean Platelet Vol. 11.1 fl (6.2-12.0); Platelet Count 285 K/mm3 (150-450); RBC Distribution Width CV 18.3 % (11.6-14.6); Red Blood Count 2.91 M/mm3 (4.2-5.4)
== END ==
LOC: OLS.SWAL 05:00
PROVIDERS: PCP Family Medicine Geriatric Medicine; Visit Provider Internal Medicine
DX: D64.9 Anemia, unspecified (principal)
CPT/HCPCS: 36415; 85027